=== PATIENT | female | born 1955 | race Caucasian/White ===

== ENCOUNTER → 2016-05-26 | Outpatient (CLI) | payer BC ==
[2016-05-26 19:08] LABS: Anisocytosis Slight; Aty Lym Flag Slight; CH 30.6; CHCM 32.4; HCT 35.7 % (34.0-46.0); HDW 3.36; HGB 11.4 gm/dL (11.4-16.0); Hypochromasia Slight; MCH 30.1 pg (25.0-35.0); MCV 94.3 fL (80.0-100.0); Mean Platelet Volume 8.6; RBC 3.78 m/uL (3.80-5.40); RDW 16.7 % (11.5-15.5); WBC 2.9 k/uL (3.8-10.6); WBC (Perox) 2.96
[2016-05-26 19:16] LABS: ALT 131 U/L (9-52); AST 121 U/L (14-36); Alkaline Phosphatase 93 U/L (38-126); Anion Gap 11 mmol/L; Blood Urea Nitrogen 18 mg/dL (7-17); Calcium 9.5 mg/dL (8.4-10.2); Carbon Dioxide 29 mmol/L (22-30); Chloride 101 mmol/L (98-107); Glucose 95 mg/dL (74-99); Magnesium 1.2 mg/dL (1.6-2.3); Non-African American GFR(MDRD) >60 (>60 ml/min/1.73 sqM); Potassium 4.4 mmol/L (3.5-5.1); Sodium 141 mmol/L (137-145); Total Bilirubin 0.6 mg/dL (0.2-1.3); Total Protein 7.8 g/dL (6.3-8.2)
[2016-05-26 19:19] LABS: Add Differential Manual Differential
[2016-05-26 19:22] LABS: Manual Review Performed; Nucleated Red Blood Cells 0 /100 WBC (0-0); Total Cells Counted 100; Toxic Granulation Present
--- NOTE | 2016-05-26 20:19 | CT ---
EXAMINATION TYPE: CT ChestAbdPelvis wo con DATE OF EXAM: 05/26/2016 6:55 PM COMPARISON: Abdomen and pelvis CT October 08, 2015 HISTORY: Right sided pain. Ovarian cancer follow-up also CT DLP: 1776.00 mGycm, Automated exposure control for dose reduction was used. FINDINGS: Within the limitations of a non-contrast study, the following observations are made. CHEST: The lungs are clear and well expanded. However, there are a few scattered 1-2 mm subtle pulmon nica opacities; these nonspecific opacities can be further characterized with a 3 month follow-up CT. There is no mediastinal or hilar or supraclavicular or axillary adenopathy. LAD coronary calcificatio ns incidentally noted. Mediastinal structures, skeletal structures and soft tissues otherwise unremar kable. ABDOMEN: The CT attenuation of the liver parenchyma is diffusely hypodense, consistent with diffuse fatty infiltration of the liver. The biliary tree and pancreas and spleen are unremarkable, as are th e kidneys and adrenals and bowel and vasculature. No abdominal adenopathy. Skeletal structures are ne gative. PELVIS: Oral contrast opacifies the colon and distal ileum. There is a predominantly fluid attenuatio n rounded 5 cm diameter mass within the right upper anterior pelvis, concerning for recurrence. Depen dently within the mass is a fluid debris level with this higher attenuation occupying approximately 1 5% of the volume of the mass. There is no free intraperitoneal fluid. There is no pelvic or inguinal adenopathy. Skeletal structures are negative. IMPRESSION: 5 CM RIGHT PELVIC MASS CONCERNING FOR NEOPLASTIC RECURRENCE.
== END | disposition home or self-care (01) ==
LOC: RADCTMAIN 14:25
PROVIDERS: ATTEND Obstetrics & Gynecology
DX: C56.9 Malignant neoplasm of unspecified ovary (principal); R19.00 Intra-abdominal and pelvic swelling, mass and lump, unspecified site
CPT/HCPCS: 36415; 71250; 74176; 80053; 83735; 85025

== ENCOUNTER 2016-08-04 02:05 | Emergency (ER) | payer BC ==
[2016-08-04 02:25] VITALS: RESP 16
[2016-08-04] MEDS ORDERED: SODIUM CHLORIDE 0.9% 1,000 ML IV STA (02:35)
[2016-08-04] MEDS ORDERED: HYDROmorphone 1 MG/ML 1 ML SYRINGE IVP STA (02:35)
[2016-08-04] MEDS ORDERED: SODIUM CHLORIDE 0.9% 500 ML IV STA (02:35)
[2016-08-04] MEDS ORDERED: METOCLOPRAMIDE 5 MG/ML 2 ML VIAL IVP STA (02:35)
[2016-08-04] MEDS ORDERED: DEXAMETHASONE 4 MG TAB PO STA (02:39)
[2016-08-04 04:18] LABS: CH 30.4; CHCM 33.2; HCT 36.9 % (34.0-46.0); HDW 3.05; HGB 12.3 gm/dL (11.4-16.0); MCH 30.5 pg (25.0-35.0); MCHC 33.3 g/dL (31.0-37.0); MCV 91.7 fL (80.0-100.0); Mean Platelet Volume 8.3; RBC 4.03 m/uL (3.80-5.40); WBC 5.2 k/uL (3.8-10.6)
[2016-08-04 04:40] LABS: ALT 41 U/L (9-52); AST 50 U/L (14-36); Alkaline Phosphatase 70 U/L (38-126); Anion Gap 10 mmol/L; Blood Urea Nitrogen 18 mg/dL (7-17); Calcium 9.1 mg/dL (8.4-10.2); Carbon Dioxide 26 mmol/L (22-30); Chloride 106 mmol/L (98-107); Glucose 134 mg/dL (74-99); Non-African American GFR(MDRD) >60 (>60 ml/min/1.73 sqM); Sodium 142 mmol/L (137-145); Total Bilirubin 0.4 mg/dL (0.2-1.3); Total Protein 6.9 g/dL (6.3-8.2)
[2016-08-04 05:06] LABS: Erythrocyte Sedimentation Rate 37 mm/hr (0-20)
--- NOTE | 2016-08-04 06:16 | ED ---
Headache HPI - General Chief Complaint: Headache Stated Complaint: Headache/Hypertension Time Seen by Provider: 08/04/16 02:23 Mode of arrival: ambulatory Limitations: no limitations - History of Present Illness Initial Comments: Planing about the headache for about 24, she feels that her blood pressure was Quite high though blood pressure was 134/79 131/79 she has been using a bunch of migraines at home she said she has 10/325 Vicodin she was using every 3 hours and she is also on chemotherapy for ovarian cancer. Last ovarian cancer- related chemo was in [place] and he was last Monday approximately 6-7 days ago she's on is warm to as well date she takes once a day and she has been taken pretty religiously - Related Data Home Medications Medication Instructions Recorded Confirmed ALPRAZolam [Xanax] 0.25 mg PO TID PRN 08/25/14 08/04/16 Diltiazem HCl [Diltiazem 24Hr ER] 120 mg PO Q24HR 08/25/14 08/04/16 Escitalopram [Lexapro] 20 mg PO DAILY 08/25/14 08/04/16 HYDROcodone/APAP 10-325MG [[place] 1 tab PO QID PRN 08/25/14 08/04/16 10-325] Rivaroxaban [Xarelto] 20 mg PO DAILY 10/14/14 08/04/16 Carvedilol 6.25 mg PO BID 10/05/15 08/04/16 Lisinopril 5 mg PO DAILY 10/05/15 08/04/16 Nitroglycerin Sl Tabs [Nitrostat] 0.4 mg PO Q5H PRN 10/05/15 08/04/16 Ondansetron HCl [Zofran] 8 mg PO BID PRN 10/05/15 08/04/16 Esomeprazole Magnesium [NexIUM 22.3 mg PO DAILY 08/04/16 08/04/16 24Hr] Zolpidem [Ambien] 10 mg PO HS PRN 08/04/16 08/04/16 Previous Rx's Medication Instructions Recorded Gabapentin [Neurontin] 300 mg PO TID #90 cap 08/28/14 Nitroglycerin Extended Release 2.5 mg PO BID capsule.er 08/28/14 [Nitro-Bid] Polyethylene Glycol 3350 [Miralax] 17 gm PO Q24H #255 gm 10/05/15 predniSONE 50 mg PO DAILY #5 tab 08/04/16 Allergies Allergy/AdvReac Type Severity Reaction Status Date / Time codeine Allergy Itching Verified 12/05/15 09:33 iodine Allergy Itching Verified 12/05/15 09:33 Penicillins Allergy Itching Verified 12/05/15 09:33 CHEMO DRUG Allergy Unknown Uncoded 12/05/15 09:33 Review of Systems ROS Statement: Those systems with pertinent positive or pertinent negative responses have been documented in the HPI. ROS Other: All systems not noted in ROS Statement are negative. Past Medical History Past Medical History: Cancer, Deep Vein Thrombosis (DVT), GERD/Reflux Additional Past Medical History / Comment(s): tmj, OVARIAN CANCER History of Any Multi-Drug Resistant Organisms: None Reported Past Surgical History: Adenoidectomy, Appendectomy, Cholecystectomy, Heart Catheterization With Stent, Hysterectomy, Tonsillectomy Additional Past Surgical History / Comment(s): ovarian cancer with bilateral oopherectomy 2005; 2 open exploratory abdominal surgery, mediport placed 2011 Past Anesthesia/Blood Transfusion Reactions: No Reported Reaction Date of Last Stent Placement:: 2011 Past Psychological History: Anxiety, Depression Smoking Status: Never smoker Past Alcohol Use History: None Reported Past Drug Use History: None Reported - Past Family History Mother Family Medical History: Diabetes Mellitus, Dialysis Brother(s) Family Medical History: Cancer Additional Family Medical History / Comment(s): lung cancer- since passed Sister(s) Family Medical History: CVA/TIA Father Family Medical History: Neurologic Disorder Additional Family Medical History / Comment(s): alzheimers General Exam - General Exam Comments Initial Comments: General: The patient is awake and alert, in no distress, and does not appear acutely ill. Skin: Skin is warm and dry and no rashes or lesions are noted. Eye: Pupils are equal, round and reactive to light, extra-ocular movements are intact; there is normal conjunctiva bilaterally. Ears, nose, mouth and throat: There are moist mucous membranes and no oral lesions. He is tender at the temporal areas bilaterally Neck: The neck is supple, there is no tenderness or JVD. Cardiovascular: There is a regular rate and rhythm. No murmur, rub or gallop is appreciated. Respiratory: To auscultation bilateral, no wheezing no rhonchi no distress respiratory reyna noticed Gastrointestinal: Soft, non-distended, non-tender abdomen without masses or organomegaly noted. There is no rebound or guarding present. Bowel sounds are unremarkable. Back: There is no tenderness to palpation in the midline. There is no obvious deformity. Musculoskeletal: Normal ROM, no tenderness, There is no pedal edema. There is no calf tenderness or swelling. No cords were appreciated. Neurological: CN II-XII intact, Cranial nerves III through XII are intact. There are no obvious motor or sensory deficits. Coordination appears grossly intact. Speech is normal. Psychiatric: Cooperative, appropriate mood & affect, normal judgment. Limitations: no limitations Course Vital Signs 08/04/16 08/04/16 08/04/16 02:09 02:25 04:00 Temperature 97.9 F Pulse Rate 53 L 69 54 L Respiratory 18 16 16 Rate Blood Pressure 131/106 142/67 138/69 O2 Sat by Pulse 94 L 98 98 Oximetry 08/04/16 08/04/16 08/04/16 04:30 06:19 07:54 Temperature 98.1 F Pulse Rate 65 60 69 Respiratory 16 16 16 Rate Blood Pressure 111/59 119/60 137/65 O2 Sat by Pulse 95 95 94 L Oximetry She was reassessed 3 times during her stay in the ER, her head CT is normal CBC , compressive metabolic panel is within normal range, sed rate is bit elevated I plan to discuss the Dr. Craft the C4 she is a candidate for temporal artery biopsy in the meantime she will be given now prednisone/Decadron on his recommendation - Reevaluation(s) Reevaluation #1: 08/04/16 08:[address] Craft this morning Dr. Craft agreed to see the patient he advised patient to call his office and they were CN next 1-2 days in the meantime she got Decadron 8 mg by mouth in in the ER today she be given prescription for 50 mg of prednisone daily for next 5 days and as far as biopsies concerned that B that decision will be done by Dr. Craft whether she needs a regular my head CT is normal Medical Decision Making - Lab Data Result diagrams: 08/04/16 03:54 08/04/16 03:54 Lab Results 08/04/16 08/04/16 Range/Units 03:54 03:54 WBC 5.2 (3.8-10.6) k/uL RBC 4.03 (3.80-5.40) m/uL Hgb 12.3 (11.4-16.0) gm/dL Hct 36.9 (34.0-46.0) % MCV 91.7 (80.0-100.0) fL MCH 30.5 (25.0-35.0) pg MCHC 33.3 (31.0-37.0) g/dL RDW 15.0 (11.5-15.5) % Plt Count 143 L (150-450) k/uL ESR 37 H (0-20) mm/hr Sodium 142 (137-145) mmol/L Potassium 4.0 (3.5-5.1) mmol/L Chloride 106 (98-107) mmol/L Carbon Dioxide 26 (22-30) mmol/L Anion Gap 10 mmol/L BUN 18 H (7-17) mg/dL Creatinine 0.90 (0.52-1.04) mg/dL Est GFR (MDRD) Af Amer >60 (>60 ml/min/1.73 sqM) Est GFR (MDRD) Non-Af >60 (>60 ml/min/1.73 sqM) Glucose 134 H (74-99) mg/dL Calcium 9.1 (8.4-10.2) mg/dL Total Bilirubin 0.4 (0.2-1.3) mg/dL AST 50 H (14-36) U/L ALT 41 (9-52) U/L Alkaline Phosphatase 70 (38-126) U/L Total Protein 6.9 (6.3-8.2) g/dL Albumin 3.7 (3.5-5.0) g/dL Disposition Clinical Impression: Headache, Elevated erythrocyte sedimentation rate Disposition: HOME SELF-CARE Condition: Good Instructions: Acute Headache (ED) Prescriptions: predniSONE 50 mg PO DAILY #5 tab Referrals: Kevin Metzger MD [Primary Care Provider] - 1-2 days Howard Craft MD [STAFF PHYSICIAN] - 1-2 days
--- NOTE | 2016-08-04 06:48 | CT ---
EXAM: CT Head Without Intravenous Contrast. CLINICAL HISTORY: Reason: Pain TECHNIQUE: Axial computed tomography images of the head/brain without intravenous contrast. CTDI is 60.3 mGy and DLP is 1018 mGy-cm This CT exam was performed using one or more of the following dose reduction techniques: automated exposure control, adjustment of the mA and/or kV according to patient size, and/or use of iterative reconstruction technique. Coronal and sagittal reformatted images were created and reviewed. COMPARISON: No relevant prior studies available. FINDINGS: Brain: Unremarkable. No hemorrhage. No significant white matter disease. No edema. Ventricles: Unremarkable. No ventriculomegaly. Bones/joints: Unremarkable. No acute fracture. Soft tissues: Unremarkable. Sinuses: Unremarkable as visualized. No acute sinusitis. Mastoid air cells: Unremarkable as visualized. No mastoid effusion. IMPRESSION: Normal head/brain CT.
[2016-08-04 07:55] VITALS: BP 137/65; PULSE 69; TEMP 98.1
== END 2016-08-04 08:35 | disposition home or self-care (01) ==
LOC: EC 02:05
DX: R51 Headache (principal); R70.0 Elevated erythrocyte sedimentation rate; C56.9 Malignant neoplasm of unspecified ovary; K21.9 Gastro-esophageal reflux disease without esophagitis; F32.9 Major depressive disorder, single episode, unspecified; Z88.0 Allergy status to penicillin; Z88.5 Allergy status to narcotic agent; Z88.8 Allergy status to other drugs, medicaments and biological substances; Z79.01 Long term (current) use of anticoagulants; Z79.899 Other long term (current) drug therapy; Z95.5 Presence of coronary angioplasty implant and graft; Z86.718 Personal history of other venous thrombosis and embolism; Z79.52 Long term (current) use of systemic steroids
CPT/HCPCS: 99284; 96374; 96375; 96361 ×3; 36415; 80053; 85652; 85027; 70450; J8540; J2765; J1170

== ENCOUNTER 2016-09-06 13:11 | Emergency (ER) | payer BC ==
[2016-09-06 13:16] VITALS: BP 145/87; PULSE 76; RESP 18; TEMP 98
[2016-09-06] MEDS ORDERED: FAMOTIDINE 20 MG TAB PO STA (13:31)
[2016-09-06] MEDS ORDERED: methylPREDNISolone SOD SUCCI 125 MG/2 ML VIAL IM STA (13:31)
[2016-09-06] MEDS ORDERED: diphenhydrAMINE 50 MG/ML 1 ML VIAL IM STA (13:31)
[2016-09-06] MEDS ORDERED: MAG HYDROX/AL HYDROX/SIMETH 30 ML, HYOSCYAMINE ELIXIR 10 ML, CIMETIDINE HCL 300 MG PO STA ×3 (13:32)
--- NOTE | 2016-09-06 13:42 | ED ---
General Adult HPI - General Chief complaint: Allergic Reaction Stated complaint: Med Reaction Time Seen by Provider: 09/06/16 13:18 Source: patient, RN notes reviewed Mode of arrival: ambulatory Limitations: no limitations - History of Present Illness Initial comments: 61-year-old female presents to the emergency department with a chief complaint burning-like sensation. Patient states that about one week ago she had a repair to her right tooth. Patient states that time she was given clindamycin. Patient states that she took one of the clindamycin and she immediately had burning all the way through her throat down into her abdomen. Patient will take anymore clindamycin. Patient states then today she took another one and she had similar like symptoms. Patient states that she was concerned because of this burning type sensation so she thought that she should be seen. Patient states there is no difficulty breathing has no chest pain. Patient states it instantaneously happened after she saw medication. Patient states that she hasn 't had any other symptoms with this. Patient states she's never had clindamycin before but the last 2 times that she is taking this medication this is happened. Patient states she was concerned due to the symptoms so she thought that she should be evaluated. Patient states she took Benadryl at home with no improvement.Patient denies any recent fever, chills, shortness of breath , chest pain, back pain, abdominal pain, nausea vomiting, numbness or tingling, dysuria or hematuria, constipation or diarrhea, headaches or visual changes, or any other current symptoms. - Related Data Home Medications Medication Instructions Recorded Confirmed ALPRAZolam [Xanax] 0.25 mg PO TID PRN 08/25/14 08/04/16 Diltiazem HCl [Diltiazem 24Hr ER] 120 mg PO Q24HR 08/25/14 08/04/16 Escitalopram [Lexapro] 20 mg PO DAILY 08/25/14 08/04/16 HYDROcodone/APAP 10-325MG [[place] 1 tab PO QID PRN 08/25/14 08/04/16 10-325] Rivaroxaban [Xarelto] 20 mg PO DAILY 10/14/14 08/04/16 Carvedilol 6.25 mg PO BID 10/05/15 08/04/16 Lisinopril 5 mg PO DAILY 10/05/15 08/04/16 Nitroglycerin Sl Tabs [Nitrostat] 0.4 mg PO Q5H PRN 10/05/15 08/04/16 Ondansetron HCl [Zofran] 8 mg PO BID PRN 10/05/15 08/04/16 Esomeprazole Magnesium [NexIUM 22.3 mg PO DAILY 08/04/16 08/04/16 24Hr] Zolpidem [Ambien] 10 mg PO HS PRN 08/04/16 08/04/16 Previous Rx's Medication Instructions Recorded Gabapentin [Neurontin] 300 mg PO TID #90 cap 08/28/14 Nitroglycerin Extended Release 2.5 mg PO BID capsule.er 08/28/14 [Nitro-Bid] Polyethylene Glycol 3350 [Miralax] 17 gm PO Q24H #255 gm 10/05/15 predniSONE 50 mg PO DAILY #5 tab 08/04/16 Allergies Allergy/AdvReac Type Severity Reaction Status Date / Time codeine Allergy Itching Verified 09/06/16 13:16 iodine Allergy Itching Verified 09/06/16 13:16 Penicillins Allergy Itching Verified 09/06/16 13:16 CHEMO DRUG Allergy Unknown Uncoded 09/06/16 13:16 Review of Systems ROS Statement: Those systems with pertinent positive or pertinent negative responses have been documented in the HPI. ROS Other: All systems not noted in ROS Statement are negative. Past Medical History Past Medical History: Cancer, Deep Vein Thrombosis (DVT), GERD/Reflux Additional Past Medical History / Comment(s): tmj, OVARIAN CANCER History of Any Multi-Drug Resistant Organisms: None Reported Past Surgical History: Adenoidectomy, Appendectomy, Cholecystectomy, Heart Catheterization With Stent, Hysterectomy, Tonsillectomy Additional Past Surgical History / Comment(s): ovarian cancer with bilateral oopherectomy 2005; 2 open exploratory abdominal surgery, mediport placed 2011 Past Anesthesia/Blood Transfusion Reactions: No Reported Reaction Date of Last Stent Placement:: 2011 Past Psychological History: Anxiety, Depression Smoking Status: Never smoker Past Alcohol Use History: None Reported Past Drug Use History: None Reported - Past Family History Mother Family Medical History: Diabetes Mellitus, Dialysis Brother(s) Family Medical History: Cancer Additional Family Medical History / Comment(s): lung cancer- since passed Sister(s) Family Medical History: CVA/TIA Father Family Medical History: Neurologic Disorder Additional Family Medical History / Comment(s): alzheimers General Exam Limitations: no limitations General appearance: alert, in no apparent distress Eye exam: Present: normal appearance, PERRL, EOMI. Absent: scleral icterus, conjunctival injection, periorbital swelling ENT exam: Present: normal exam, mucous membranes moist Neck exam: Present: normal inspection. Absent: tenderness, meningismus, lymphadenopathy Respiratory exam: Present: normal lung sounds bilaterally. Absent: respiratory distress, wheezes, rales, rhonchi, stridor Cardiovascular Exam: Present: regular rate, normal rhythm, normal heart sounds. Absent: systolic murmur, diastolic murmur, rubs, gallop, clicks Neurological exam: Present: alert, oriented X3, CN II-XII intact. Absent: motor sensory deficit Psychiatric exam: Present: normal affect, normal mood Skin exam: Present: warm, dry, intact, normal color. Absent: rash Course Vital Signs 09/06/16 13:13 Temperature 98.0 F Pulse Rate 76 Respiratory 18 Rate Blood Pressure 145/87 O2 Sat by Pulse 99 Oximetry - Reevaluation(s) Reevaluation #1: 09/06/16 14:38 Patient states that she is feeling better but her at this time. Medical Decision Making - Medical Decision Making 61-year-old female presents with what appears to be an adverse drug reaction to clindamycin. GI cocktail didn't completely resolve the patient's symptoms. This time we discussed most that the patient is having gastritis like symptoms along with esophageal-type symptoms from the clindamycin. At this time we did discuss that did not take the clindamycin at this time. We did discuss follow- up with her doctor and return parameters. We discussed the adverse drug reaction. Patient states that she understood and all of her questions have been answered. She will be discharged home. Disposition Clinical Impression: Adverse reaction to drug Disposition: HOME SELF-CARE Condition: Stable Instructions: Clindamycin (By mouth) Additional Instructions: Please use medication as discussed. Please follow up with family doctor if symptoms have not improved over the next two days. Please return to the emergency room if your symptoms increase or worsen or for any other concerns. Referrals: Kevin Metzger MD [Primary Care Provider] - 1-2 days Time of Disposition: 14:38
== END 2016-09-06 14:50 | disposition home or self-care (01) ==
LOC: EC 13:11
DX: R20.8 Other disturbances of skin sensation (principal); T36.8X5A Adverse effect of other systemic antibiotics, initial encounter; K21.9 Gastro-esophageal reflux disease without esophagitis; F32.9 Major depressive disorder, single episode, unspecified; F41.9 Anxiety disorder, unspecified; Z79.01 Long term (current) use of anticoagulants; Z79.899 Other long term (current) drug therapy; Z88.5 Allergy status to narcotic agent; Z88.0 Allergy status to penicillin; Z88.8 Allergy status to other drugs, medicaments and biological substances; Z86.718 Personal history of other venous thrombosis and embolism
CPT/HCPCS: 99282; 96372; J1200

== ENCOUNTER → 2017-02-09 | Outpatient (CLI) | payer BC ==
--- NOTE | 2017-02-09 15:26 | NM ---
EXAMINATION TYPE: NM bone scan whole body DATE OF EXAM: 02/09/2017 COMPARISON: 12/08/2014 HISTORY: 61-year-old female with bilateral shoulder and back pain. Technique: Delayed whole-body scanning was performed following the injection of 21.5 mCi Tc 99m MDP. Images acquired 3 hours post injection. FINDINGS: There is some mild degenerative uptake noted at both shoulders. No suspicious distribution of tracer throughout the osseous structures to suggest metastatic disease. IMPRESSION: No scintigraphic evidence for osseous metastatic disease. There is mild degenerative tracer uptake at the shoulders.
== END | disposition home or self-care (01) ==
LOC: RADNMMAIN 10:19
PROVIDERS: ATTEND Family Medicine
DX: M54.9 Dorsalgia, unspecified (principal)
CPT/HCPCS: 78306; A9503

== ENCOUNTER 2017-02-15 23:12 | Emergency (ER) | payer BC ==
--- NOTE | 2017-02-16 01:07 | US ---
EXAMINATION TYPE: US venous doppler duplex LE RT DATE OF EXAM: 02/16/2017 12:29 AM COMPARISON: NONE CLINICAL HISTORY: Pain. rt calf pain SIDE PERFORMED: Right TECHNIQUE: The lower extremity deep venous system is examined utilizing real time linear array sonog freddie with graded compression, doppler sonography and color-flow sonography. VESSELS IMAGED: External Iliac Vein (EIV) Common Femoral Vein Deep Femoral Vein Greater Saphenous Vein * Femoral Vein Popliteal Vein Small Saphenous Vein * Proximal Calf Veins (* superficial vessels) Right Leg: Negative for DVT No evidence of DVT right leg IMPRESSION: Normal exam. No evidence of deep venous thrombosis in the right leg.
--- NOTE | 2017-02-16 01:17 | ED ---
Extremity Problem HPI - General Chief complaint: Extremity Problem,Nontraumatic Stated complaint: Leg Pain/Pt on chemo Time Seen by Provider: 02/16/17 00:35 Source: patient, RN notes reviewed, old records reviewed Mode of arrival: ambulatory Limitations: no limitations - History of Present Illness Initial comments: this is a 61-year-old female to emergency Department chief complaint of right leg cramping and pain. Patient reports that she has history of cancer. She states that she is currently here seeing chemo pills. She is concerned she may have blood clot in her right lower leg. Denies any significant swelling. She reports that she does have chronic muscle cramps and seems to be somewhat different. She does report she has history of neuropathy and takes gabapentin. She's been taking her gabapentin and Vicodin however has not been helping.patient denies any recent falls or trauma to the leg. Patient denies any recent fever, chills, shortness of breath, chest pain, back pain, abdominal pain, nausea vomiting, numbness or tingling, dysuria or hematuria, constipation or diarrhea, headaches or visual changes, or any other current symptoms - Related Data Home Medications Medication Instructions Recorded Confirmed ALPRAZolam [Xanax] 0.25 mg PO TID PRN 08/25/14 08/04/16 Diltiazem HCl [Diltiazem 24Hr ER] 120 mg PO Q24HR 08/25/14 08/04/16 Escitalopram [Lexapro] 20 mg PO DAILY 08/25/14 08/04/16 HYDROcodone/APAP 10-325MG [[place] 1 tab PO QID PRN 08/25/14 08/04/16 10-325] Rivaroxaban [Xarelto] 20 mg PO DAILY 10/14/14 08/04/16 Carvedilol 6.25 mg PO BID 10/05/15 08/04/16 Lisinopril 5 mg PO DAILY 10/05/15 08/04/16 Nitroglycerin Sl Tabs [Nitrostat] 0.4 mg PO Q5H PRN 10/05/15 08/04/16 Ondansetron HCl [Zofran] 8 mg PO BID PRN 10/05/15 08/04/16 Esomeprazole Magnesium [NexIUM 22.3 mg PO DAILY 08/04/16 08/04/16 24Hr] Zolpidem [Ambien] 10 mg PO HS PRN 08/04/16 08/04/16 Previous Rx's Medication Instructions Recorded Gabapentin [Neurontin] 300 mg PO TID #90 cap 08/28/14 Nitroglycerin Extended Release 2.5 mg PO BID capsule.er 08/28/14 [Nitro-Bid] Polyethylene Glycol 3350 [Miralax] 17 gm PO Q24H #255 gm 10/05/15 predniSONE 50 mg PO DAILY #5 tab 08/04/16 Allergies Allergy/AdvReac Type Severity Reaction Status Date / Time codeine Allergy Itching Verified 02/15/17 23:24 iodine Allergy Itching Verified 02/15/17 23:24 Penicillins Allergy Itching Verified 02/15/17 23:24 CHEMO DRUG Allergy Unknown Uncoded 02/15/17 23:24 Review of Systems ROS Statement: Those systems with pertinent positive or pertinent negative responses have been documented in the HPI. ROS Other: All systems not noted in ROS Statement are negative. Past Medical History Past Medical History: Cancer, Deep Vein Thrombosis (DVT), GERD/Reflux Additional Past Medical History / Comment(s): tmj, OVARIAN CANCER History of Any Multi-Drug Resistant Organisms: None Reported Past Surgical History: Adenoidectomy, Appendectomy, Cholecystectomy, Heart Catheterization With Stent, Hysterectomy, Tonsillectomy Additional Past Surgical History / Comment(s): ovarian cancer with bilateral oopherectomy 2005; 2 open exploratory abdominal surgery, mediport placed 2011 Past Anesthesia/Blood Transfusion Reactions: No Reported Reaction Date of Last Stent Placement:: 2011 Past Psychological History: Anxiety, Depression Smoking Status: Never smoker Past Alcohol Use History: None Reported Past Drug Use History: None Reported - Past Family History Mother Family Medical History: Diabetes Mellitus, Dialysis Brother(s) Family Medical History: Cancer Additional Family Medical History / Comment(s): lung cancer- since passed Sister(s) Family Medical History: CVA/TIA Father Family Medical History: Neurologic Disorder Additional Family Medical History / Comment(s): alzheimers General Exam - General Exam Comments Initial Comments: well-appearing 61-year-old female. No acute distress. Limitations: no limitations General appearance: alert, in no apparent distress Head exam: Present: atraumatic, normocephalic, normal inspection Eye exam: Present: normal appearance, PERRL, EOMI. Absent: scleral icterus, conjunctival injection, periorbital swelling ENT exam: Present: normal exam, mucous membranes moist Neck exam: Present: normal inspection. Absent: tenderness, meningismus, lymphadenopathy Respiratory exam: Present: normal lung sounds bilaterally. Absent: respiratory distress, wheezes, rales, rhonchi, stridor Cardiovascular Exam: Present: regular rate, normal rhythm, normal heart sounds. Absent: systolic murmur, diastolic murmur, rubs, gallop, clicks GI/Abdominal exam: Present: soft, normal bowel sounds. Absent: distended, tenderness, guarding, rebound, rigid Extremities exam: Present: normal inspection, full ROM, normal capillary refill , other (patient has full range of motion and no swelling or redness over the right lower leg. Patient reports some minor Cramping.). Absent: tenderness, pedal edema, joint swelling, calf tenderness Back exam: Present: normal inspection Neurological exam: Present: alert, oriented X3, CN II-XII intact Psychiatric exam: Present: normal affect, normal mood Course Vital Signs 02/15/17 02/16/17 23:21 01:51 Temperature 99.0 F 97.8 F Pulse Rate 77 53 L Respiratory 18 16 Rate Blood Pressure 126/71 148/74 O2 Sat by Pulse 95 98 Oximetry Medical Decision Making - Medical Decision Making is a 61-year-old female presenting to emergency room chief complaint of right lower leg pain. She does have a history of cancer is currently undergoing oral pill chemo treatments. Patient right leg has no redness. No significant swelling. She does complain of some mild cramping. At this time patient's ultrasound is negative for any DVT. Patient's main concern. Discussed without any trauma or any other injuriessignificant necessary for x-rays. Patient agrees to this. Discussed that she should follow-up with her primary care provider and may need to increase her gabapentin for neuropathy. Discussed remaining hydrated. Patient agrees to treatment plan will comply. Return parameters were discussed. - Radiology Data Radiology results: report reviewed Rectal exam for DVT. Normal exam. No evidence of deep venous thrombosis in the right leg. Disposition Clinical Impression: Cramps of right lower extremity Disposition: HOME SELF-CARE Condition: Good Instructions: Leg Cramps (ED) Additional Instructions: patient has a follow-up with her primary care provider. Take Motrin and Tylenol are prescribed pain medication for pain. Increase fluids. Return to emergency department if any alarming signs or symptoms occur. Also recommended resting ice and elevate the extremity. Referrals: Kevin Metzger MD [Primary Care Provider] - 1-2 days Time of Disposition: 01:17
[2017-02-16 01:52] VITALS: BP 148/74; PULSE 53; RESP 16; TEMP 97.8
== END 2017-02-16 01:51 | disposition home or self-care (01) ==
LOC: EC 23:12
DX: M79.604 Pain in right leg (principal); K21.9 Gastro-esophageal reflux disease without esophagitis; F32.9 Major depressive disorder, single episode, unspecified; F41.9 Anxiety disorder, unspecified; Z85.43 Personal history of malignant neoplasm of ovary; Z86.718 Personal history of other venous thrombosis and embolism; Z79.01 Long term (current) use of anticoagulants; Z79.899 Other long term (current) drug therapy; Z88.0 Allergy status to penicillin; Z88.5 Allergy status to narcotic agent; Z88.8 Allergy status to other drugs, medicaments and biological substances
CPT/HCPCS: 99284

== ENCOUNTER → 2017-09-06 | Outpatient (CLI) | payer BC ==
[2017-09-06 16:38] LABS: Collection Time,Urine 24 hrs; Total Volume 24 Hour,Urine 775 mls (800-1800)
[2017-09-06 17:55] LABS: Total Protein 24 Hour,Urine 4387 mg/24hr (42.0-225.0)
== END ==
LOC: LABWHC1 15:16
PROVIDERS: ATTEND Obstetrics & Gynecology Gynecologic Oncology
DX: R80.9 Proteinuria, unspecified (principal)
CPT/HCPCS: 81050; 84156

== ENCOUNTER 2017-10-05 10:24 | Inpatient (IN) | payer BC ==
[2017-10-05] MEDS ORDERED: ONDANSETRON 4 MG/2 ML VIAL IVP STA (10:36)
[2017-10-05] MEDS ORDERED: SODIUM CHLORIDE 0.9% 2,000 ML IV STA (10:36)
--- NOTE | 2017-10-05 10:39 | ED ---
General Adult HPI - General Chief complaint: Abdominal Pain Stated complaint: Nause/Vomiting Time Seen by Provider: 10/05/17 10:30 Source: patient, EMS, RN notes reviewed Mode of arrival: EMS Limitations: no limitations - History of Present Illness Initial comments: This is a 62-year-old female who presents to the emergency department with past medical history of ovarian cancer. Patient states she's been having intermittent abdominal pain and constipation over the last few weeks she is on narcotics. Patient states as night however she started having nausea and started vomiting and has not stopped. Patient states 2 weeks ago she was seen in emergency department in [place] and a CAT scan was done there and she was told nothing was abnormal. Patient states currently her abdomen is diffusely crampy but there is no specific area of tenderness. Patient denies any fever chills. Patient denies any chest pain difficulty breathing shortness of breath. Patient denies headache patient denies any numbness or weakness. Patient denies any back pain. Patient denies dysuria hematuria urinary frequency. - Related Data Home Medications Medication Instructions Recorded Confirmed ALPRAZolam [Xanax] 0.25 mg PO TID PRN 08/25/14 10/05/17 Diltiazem HCl [Diltiazem 24Hr ER] 120 mg PO DAILY 08/25/14 10/05/17 Escitalopram [Lexapro] 20 mg PO DAILY 08/25/14 10/05/17 HYDROcodone/APAP 10-325MG [[place] 1 tab PO QID PRN 08/25/14 10/05/17 10-325] Rivaroxaban [Xarelto] 20 mg PO DAILY 10/14/14 10/05/17 Carvedilol 6.25 mg PO BID 10/05/15 10/05/17 Lisinopril 5 mg PO DAILY 10/05/15 10/05/17 Nitroglycerin Sl Tabs [Nitrostat] 0.4 mg PO Q5M PRN 10/05/15 10/05/17 Ondansetron HCl [Zofran] 8 mg PO BID PRN 10/05/15 10/05/17 Zolpidem [Ambien] 10 mg PO HS PRN 08/04/16 10/05/17 Polyethylene Glycol 3350 [Miralax] 17 gm PO DAILY 10/05/17 10/05/17 diphenhydrAMINE HCL [Benadryl] 25 mg PO HS 10/05/17 10/05/17 Previous Rx's Medication Instructions Recorded Gabapentin [Neurontin] 300 mg PO TID #90 cap 08/28/14 Nitroglycerin Extended Release 2.5 mg PO BID capsule.er 08/28/14 [Nitro-Bid] Allergies Allergy/AdvReac Type Severity Reaction Status Date / Time codeine Allergy Itching Verified 10/05/17 10:59 iodine Allergy Itching Verified 10/05/17 10:59 Penicillins Allergy Itching Verified 10/05/17 10:59 CHEMO DRUG Allergy Unknown Uncoded 10/05/17 10:31 Review of Systems ROS Statement: Those systems with pertinent positive or pertinent negative responses have been documented in the HPI. ROS Other: All systems not noted in ROS Statement are negative. Past Medical History Past Medical History: Cancer, Deep Vein Thrombosis (DVT), GERD/Reflux Additional Past Medical History / Comment(s): tmj, OVARIAN CANCER History of Any Multi-Drug Resistant Organisms: None Reported Past Surgical History: Adenoidectomy, Appendectomy, Cholecystectomy, Heart Catheterization With Stent, Hysterectomy, Tonsillectomy Additional Past Surgical History / Comment(s): ovarian cancer with bilateral oopherectomy 2005; 2 open exploratory abdominal surgery, mediport placed 2011 Past Anesthesia/Blood Transfusion Reactions: No Reported Reaction Date of Last Stent Placement:: 2011 Past Psychological History: Anxiety, Depression Smoking Status: Never smoker Past Alcohol Use History: None Reported Past Drug Use History: None Reported - Past Family History Mother Family Medical History: Diabetes Mellitus, Dialysis Brother(s) Family Medical History: Cancer Additional Family Medical History / Comment(s): lung cancer- since passed Sister(s) Family Medical History: CVA/TIA Father Family Medical History: Neurologic Disorder Additional Family Medical History / Comment(s): alzheimers General Exam - General Exam Comments Initial Comments: GENERAL: Patient is well-developed and well-nourished. Patient is nontoxic and well- hydrated and is in mild distress. ENT: Neck is soft and supple. No significant lymphadenopathy is noted. Oropharynx is clear. Moist mucous membranes. Neck has full range of motion without eliciting any pain. EYES: The sclera were anicteric and conjunctiva were pink and moist. Extraocular movements were intact and pupils were equal round and reactive to light. Eyelids were unremarkable. PULMONARY: Unlabored respirations. Good breath sounds bilaterally. No audible rales rhonchi or wheezing was noted. CARDIOVASCULAR: There is a regular rate and rhythm without any murmurs gallops or rubs. ABDOMEN: Mild diffuse tenderness there is no rebound or guarding. No palpable organomegaly was noted. There is no palpable pulsatile mass. SKIN: Skin is clear with no lesions or rashes and otherwise unremarkable. NEUROLOGIC: Patient is alert and oriented x3. Cranial nerves II through XII are grossly intact. Motor and sensory are also intact. Normal speech, volume and content. Symmetrical smile. MUSCULOSKELETAL: Normal extremities with adequate strength and full range of motion. LYMPHATICS: No significant lymphadenopathy is noted PSYCHIATRIC: Normal psychiatric evaluation. Limitations: no limitations Course Vital Signs 10/05/17 10/05/17 10/05/17 10:31 11:41 12:16 Pulse Rate 100 98 84 Respiratory 20 20 16 Rate Blood Pressure 234/112 186/127 194/91 O2 Sat by Pulse 95 95 Oximetry 10/05/17 10/05/17 10/05/17 14:07 15:00 16:09 Pulse Rate 120 H 118 H 109 H Respiratory 18 16 18 Rate Blood Pressure 176/81 209/95 179/83 O2 Sat by Pulse 96 94 L 95 Oximetry Medical Decision Making - Medical Decision Making EKG shows sinus tachycardia at 127 bpm SC interval is 132 QRS is 78 QT interval 314 QTC is 456. Patient's EKG shows no ST segment elevation. - Lab Data Result diagrams: 10/05/17 10:40 10/05/17 10:40 Lab Results 10/05/17 10/05/17 10/05/17 Range/Units 10:32 10:40 10:40 WBC 10.7 H (3.8-10.6) k/uL RBC 4.36 (3.80-5.40) m/uL Hgb 11.7 (11.4-16.0) gm/dL Hct 36.4 (34.0-46.0) % MCV 83.6 (80.0-100.0) fL MCH 26.8 (25.0-35.0) pg MCHC 32.1 (31.0-37.0) g/dL RDW 15.5 (11.5-15.5) % Plt Count 179 (150-450) k/uL Neutrophils % 87 % Lymphocytes % 8 % Monocytes % 4 % Eosinophils % 0 % Basophils % 0 % Neutrophils # 9.3 H (1.3-7.7) k/uL Lymphocytes # 0.8 L (1.0-4.8) k/uL Monocytes # 0.4 (0-1.0) k/uL Eosinophils # 0.0 (0-0.7) k/uL Basophils # 0.0 (0-0.2) k/uL Hypochromasia Slight Sodium 144 (137-145) mmol/L Potassium 4.3 (3.5-5.1) mmol/L Chloride 105 (98-107) mmol/L Carbon Dioxide 24 (22-30) mmol/L Anion Gap 15 mmol/L BUN 23 H (7-17) mg/dL Creatinine 1.08 H (0.52-1.04) mg/dL Est GFR (CKD-EPI)AfAm 63 (>60 ml/min/1.73 sqM) Est GFR (CKD-EPI)NonAf 55 (>60 ml/min/1.73 sqM) Glucose 193 H (74-99) mg/dL Plasma Lactic Acid Chad (0.7-2.0) mmol/L Calcium 9.6 (8.4-10.2) mg/dL Total Bilirubin 0.5 (0.2-1.3) mg/dL AST 43 H (14-36) U/L ALT 28 (9-52) U/L Alkaline Phosphatase 57 (38-126) U/L Troponin I (0.000-0.034) ng/mL Total Protein 6.9 (6.3-8.2) g/dL Albumin 3.9 (3.5-5.0) g/dL Amylase 58 (30-110) U/L Lipase 166 (23-300) U/L Urine Color Yellow Urine Appearance Cloudy H (Clear) Urine pH 6.0 (5.0-8.0) Ur Specific Hallock 1.017 (1.001-1.035) Urine Protein 4+ H (Negative) Urine Glucose (UA) Trace H (Negative) Urine Ketones Negative (Negative) Urine Blood Moderate H (Negative) Urine Nitrite Negative (Negative) Urine Bilirubin Negative (Negative) Urine Urobilinogen <2.0 (<2.0) mg/dL Ur Leukocyte Esterase Negative (Negative) Urine RBC 6 H (0-5) /hpf Urine WBC 12 H (0-5) /hpf Ur Squamous Epith Cells 3 (0-4) /hpf Amorphous Sediment Rare H (None) /hpf Urine Bacteria Rare H (None) /hpf Hyaline Casts 62 H (0-2) /lpf Granular Casts 11 (0) /lpf Urine Mucus Rare H (None) /hpf 10/05/17 10/05/17 Range/Units 10:40 10:40 WBC (3.8-10.6) k/uL RBC (3.80-5.40) m/uL Hgb (11.4-16.0) gm/dL Hct (34.0-46.0) % MCV (80.0-100.0) fL MCH (25.0-35.0) pg MCHC (31.0-37.0) g/dL RDW (11.5-15.5) % Plt Count (150-450) k/uL Neutrophils % % Lymphocytes % % Monocytes % % Eosinophils % % Basophils % % Neutrophils # (1.3-7.7) k/uL Lymphocytes # (1.0-4.8) k/uL Monocytes # (0-1.0) k/uL Eosinophils # (0-0.7) k/uL Basophils # (0-0.2) k/uL Hypochromasia Sodium (137-145) mmol/L Potassium (3.5-5.1) mmol/L Chloride (98-107) mmol/L Carbon Dioxide (22-30) mmol/L Anion Gap mmol/L BUN (7-17) mg/dL Creatinine (0.52-1.04) mg/dL Est GFR (CKD-EPI)AfAm (>60 ml/min/1.73 sqM) Est GFR (CKD-EPI)NonAf (>60 ml/min/1.73 sqM) Glucose (74-99) mg/dL Plasma Lactic Acid Chad 2.0 (0.7-2.0) mmol/L Calcium (8.4-10.2) mg/dL Total Bilirubin (0.2-1.3) mg/dL AST (14-36) U/L ALT (9-52) U/L Alkaline Phosphatase (38-126) U/L Troponin I <0.012 (0.000-0.034) ng/mL Total Protein (6.3-8.2) g/dL Albumin (3.5-5.0) g/dL Amylase (30-110) U/L Lipase (23-300) U/L Urine Color Urine Appearance (Clear) Urine pH (5.0-8.0) Ur Specific Hallock (1.001-1.035) Urine Protein (Negative) Urine Glucose (UA) (Negative) Urine Ketones (Negative) Urine Blood (Negative) Urine Nitrite (Negative) Urine Bilirubin (Negative) Urine Urobilinogen (<2.0) mg/dL Ur Leukocyte Esterase (Negative) Urine RBC (0-5) /hpf Urine WBC (0-5) /hpf Ur Squamous Epith Cells (0-4) /hpf Amorphous Sediment (None) /hpf Urine Bacteria (None) /hpf Hyaline Casts (0-2) /lpf Granular Casts (0) /lpf Urine Mucus (None) /hpf Disposition Clinical Impression: Abdominal pain, Acute vomiting, Hypertensive urgency, Hydronephrosis, bilateral , Abdominal mass Disposition: ADMITTED IP TO THIS [facility] Time of Disposition: 15:56
[2017-10-05 10:57] LABS: Basophils % (A) 0 %; Eosinophils % (A) 0 %; HCT 36.4 % (34.0-46.0); HGB 11.7 gm/dL (11.4-16.0); Hypochromasia Slight; Lymphocytes # (A) 0.8 k/uL (1.0-4.8); Lymphocytes % (A) 8 %; MCH 26.8 pg (25.0-35.0); MCHC 32.1 g/dL (31.0-37.0); MCV 83.6 fL (80.0-100.0); Mean Platelet Volume 8.3; Monocytes # (A) 0.4 k/uL (0-1.0); Monocytes % (A) 4 %; Neutrophils # (A) 9.3 k/uL (1.3-7.7); Neutrophils % (A) 87 %; Platelet Count 179 k/uL (150-450); RBC 4.36 m/uL (3.80-5.40); RDW 15.5 % (11.5-15.5); WBC 10.7 k/uL (3.8-10.6)
[2017-10-05 11:05] LABS: Amorphous Sediment,Urine Rare /hpf; Appearance,Urine Cloudy (Clear); Bacteria,Urine Rare /hpf; Bilirubin,Urine Negative (Negative); Blood,Urine Moderate (Negative); Color,Urine Yellow; Glucose,Urine (UA) Trace (Negative); Granular Casts,Urine 11 /lpf (0); Hyaline Casts,Urine 62 /lpf (0-2); Ketones,Urine Negative (Negative); Leukocyte Esterase,Urine Negative (Negative); Mucus,Urine Rare /hpf; Nitrite,Urine Negative (Negative); Protein,Urine 4+ (Negative); RBC,Urine 6 /hpf (0-5); Specific Gravity,Urine 1.017 (1.001-1.035); Squamous Epithelial Cell,Urine 3 /hpf (0-4); Urobilinogen,Urine <2.0 mg/dL (<2.0); WBC,Urine 12 /hpf (0-5)
--- NOTE | 2017-10-05 11:07 | XR ---
EXAMINATION TYPE: XR KUB DATE OF EXAM: 10/05/2017 11:01 AM CLINICAL HISTORY: Constipation. History of ovarian cancer. TECHNIQUE: Single supine KUB image of the abdomen is obtained. COMPARISON: None. FINDINGS: Multiple scattered air-fluid levels are seen within nondilated small bowel centralized with in the abdomen. Small bowel measures up to 2.6 cm. Paucity of colonic stool is present. Surgical clip s are scattered throughout the abdomen. No evidence of pneumoperitoneum. No abnormal calcification is seen. The lung bases are clear and the osseous structures are intact. IMPRESSION: Scattered centralized air-fluid levels within nondilated small bowel with paucity of colo melissa bowel gas. Findings likely represent small bowel ileus as there is no bowel dilatation.
[2017-10-05 11:09] LABS: Albumin 3.9 g/dL (3.5-5.0); Calcium 9.6 mg/dL (8.4-10.2); Total Bilirubin 0.5 mg/dL (0.2-1.3); Total Protein 6.9 g/dL (6.3-8.2)
[2017-10-05] MEDS ORDERED: MORPHINE SULFATE 4 MG/ML SYRINGE IVP STA (11:09)
[2017-10-05] MEDS ORDERED: hydrALAZINE HCL 20 MG/ML 1 ML VIAL IVP STA (11:13)
[2017-10-05 11:14] LABS: Potassium 4.3 mmol/L (3.5-5.1)
[2017-10-05] MEDS ORDERED: LORazepam 2 MG/ML INJ IV STA (12:48)
[2017-10-05] MEDS ORDERED: RX INFO: IV CONTRAST WAS GIVEN 1 EACH MISC MISCELLANE PRN (14:55)
[2017-10-05] MEDS ORDERED: LABETALOL 5 MG/ML VIAL MDV IVP STA (15:03)
[2017-10-05] MEDS ORDERED: diphenhydrAMINE 50 MG/ML 1 ML VIAL IVP STA (15:04)
[2017-10-05] MEDS ORDERED: ACETAMINOPHEN TAB 500 MG TAB PO STA (15:04)
[2017-10-05] MEDS ORDERED: FAMOTIDINE 20 MG/2 ML VIAL IV STA (15:04)
[2017-10-05] MEDS ORDERED: methylPREDNISolone SOD SUCCI 125 MG/2 ML VIAL IV STA (15:04)
[2017-10-05] MEDS ORDERED: cefTRIAXone IN SWFI 1,000 MG/10 ML SYRINGE IVP STA (15:08)
[2017-10-05] MEDS ORDERED: IBUPROFEN IV 600 MG in SODIUM CHLORIDE 0.9% 250 ML IV STA (15:09)
[2017-10-05] MEDS ORDERED: SODIUM CHLORIDE 0.9% 500 ML IV SCH (15:15)
[2017-10-05] MEDS ORDERED: SODIUM CHLORIDE 0.9% 1,000 ML IV ONE (16:00)
--- NOTE | 2017-10-05 16:03 | CT ---
EXAMINATION TYPE: CT abdomen pelvis w con DATE OF EXAM: 10/05/2017 COMPARISON: 05/26/2016 HISTORY: Nausea and vomiting. Poor historian. CT DLP: 1395.9 mGycm CONTRAST: CT scan of the abdomen and pelvis is performed without Oral Contrast and with IV Contrast, patient in jected with 80ml mL of Isovue 300. FINDINGS: LUNG BASES-: Patchy infiltrate right middle lobe is suspicious for pneumonia. LIVER/GB: Cholecystectomy clips are in place. There is mild hepatic steatosis. No space occupying hepatic lesion. Biliary tree is of normal caliber. PANCREAS: No inflammation. No distinct mass. SPLEEN: No splenic enlargement. No lesion seen. ADRENALS: No nodule. No thickening. KIDNEYS/BLADDER: There is bilateral hydronephrosis right greater than left without obstructing calcul us. No nephrolithiasis. No distinct renal mass. Urinary bladder grossly unremarkable. BOWEL: There is soft tissue mass within the right hemipelvis measuring 4.7 x 3.9 cm with the dilated bowel extending to the level of this mass. Bowel and measures up to 3 cm with scattered air-fluid lev els identified. Omentectomy clips are present. GENITAL ORGANS: Postoperative changes of hysterectomy and oophorectomy. There is soft tissue within the right hemipelvis measuring 4.7 x 3.9 cm may reflect residual tumor and/or recurrent renal tumor. LYMPH NODES: Right external iliac lymph node measuring 1.5 cm. No additional greater than 1cm abdomi nal or pelvic lymph nodes are appreciated. AORTA: No significant abnormality. OSSEOUS STRUCTURES: No significant abnormality is seen. OTHER: No significant additional abnormality is seen. IMPRESSION: 1. Soft tissue right hemipelvis may reflect recurrent or residual ovarian neoplasm. As noted there is resultant bilateral hydronephrosis right greater than left which is an interval finding. In addition there are mildly dilated loops of small bowel possibly related to early partial obstruction secondar y to the aforementioned mass. 2. Mild hepatic steatosis.
[2017-10-05] MEDS ORDERED: ACETAMINOPHEN TAB 325 MG TAB PO PRN (18:05)
[2017-10-05] MEDS: SODIUM CHLORIDE 0.9% 1,000 ML IV SCH (18:19)
--- NOTE | 2017-10-05 18:47 | XR ---
EXAMINATION TYPE: XR chest 2V DATE OF EXAM: 10/05/2017 COMPARISON: 10/05/2015 HISTORY: Nausea and vomiting TECHNIQUE: Frontal and lateral views of the chest are obtained. FINDINGS: There is no heart failure. There is right central venous catheter with tip in the superior vena cava. Heart size is normal. There is no pleural effusion. There is mild infiltrate in the right middle lobe. IMPRESSION: There is new right middle lobe pneumonia compared to old exam. Normal heart.
[2017-10-05] MEDS: GABAPENTIN 300 MG CAP PO SCH ×2 (19:11→22:34)
[2017-10-05] MEDS: LISINOPRIL 5 MG TAB PO SCH (19:11)
[2017-10-05] MEDS: DILTIAZEM CD 120 MG CAP.ER.24H PO SCH (19:11)
[2017-10-05] MEDS: ALPRAZolam 0.25 MG TAB PO PRN (19:13)
[2017-10-05] MEDS: HYDROcodone/APAP 10-325MG 1 EACH TAB PO PRN (20:36)
[2017-10-05] MEDS ORDERED: VANCOMYCIN IV PER PHARMACY 1 EACH MISC MISCELLANE PRN (20:56)
[2017-10-05] MEDS ORDERED: ACETAMINOPHEN IV (For NPO) 1,000 MG in EMPTY BAG 1 BAG IVPB PRN (20:57)
[2017-10-05] MEDS: VANCOMYCIN 1,500 MG in SODIUM CHLORIDE 0.9% 250 ML IVPB SCH (22:33)
[2017-10-05] MEDS: MEROPENEM 1 GM in SODIUM CHLORIDE 0.9% 100 ML IVPB SCH (22:34)
[2017-10-06] MEDS: SODIUM CHLORIDE 0.9% 1,000 ML IV SCH ×5 (01:13→20:58)
[2017-10-06] MEDS: DILTIAZEM CD 120 MG CAP.ER.24H PO SCH (07:48)
[2017-10-06] MEDS: CARVEDILOL 6.25 MG TAB PO SCH ×2 (07:48→16:56)
[2017-10-06] MEDS: GABAPENTIN 300 MG CAP PO SCH ×3 (07:48→21:45)
[2017-10-06] MEDS: MEROPENEM 1 GM in SODIUM CHLORIDE 0.9% 100 ML IVPB SCH ×2 (07:49→20:54)
[2017-10-06] MEDS: LISINOPRIL 5 MG TAB PO SCH (07:49)
[2017-10-06] MEDS: HYDROcodone/APAP 10-325MG 1 EACH TAB PO PRN ×2 (07:51→16:51)
[2017-10-06] MEDS: ALPRAZolam 0.25 MG TAB PO PRN ×2 (07:51→16:51)
[2017-10-06] MEDS ORDERED: NITROGLYCERIN SL TABS 0.4 MG TAB SUBLINGUAL PRN (11:04)
[2017-10-06] MEDS: VANCOMYCIN 1,500 MG in SODIUM CHLORIDE 0.9% 250 ML IVPB SCH (13:18)
--- NOTE | 2017-10-06 14:32 | P.CONS ---
History of Present Illness - Reason for Consult Consult date: 10/06/17 Abdominal pain, nausea, vomiting - History of Present Illness This is a 62-year-old female patient who has a past history significant for ovarian cancer has been on maintenance chemotherapy and under the treatment of Dr. Sean Trinidad, [place]. Patient states that she was recently taken off chemotherapy 3 weeks ago as her protein levels are too high in her urine. This is to be reevaluated and possibly start a new maintenance chemotherapy. Patient states that she did have him abdominal pain and constipation with cramping pain about 2 weeks ago and went to [facility] and underwent a CAT scan and she was sent home. At that time she did not have the vomiting nor fever. Patient now presents with sudden onset of nausea and vomiting along with abdominal pain and cramping and constipation. She did have a bowel movement yesterday morning that was normal and later in the day she had diarrhea. She no longer has any diarrhea. She does complain of pressure and burning when she initiates urination. She denies any history of urinary tract infections. She presented with nausea vomiting and fevers. Temperature max is been 101.8, white count 10.7, BUN 23 creatinine 1.08. CAT scan of the abdomen and pelvis revealed a soft tissue mass in the right hemipelvis of a recurrent or residual neoplasm. Bilateral [place] right greater than left possible early small bowel obstruction secondary to mass. Mild hepatic steatosis. Chest x-ray shows new right middle lobe pneumonia. Patient was initially on ceftriaxone and admitted to the [facility] floor. Antibiotics have been changed to meropenem and vancomycin with improvement of her symptoms. Review of Systems All systems: negative Constitutional: Reports chills, Reports fatigue, Reports fever, Reports poor appetite Eyes: denies blurred vision, denies pain Ears, nose, mouth and throat: Denies dental pain, Denies headache, Denies mouth pain, Denies sore throat, Denies vertigo Cardiovascular: Denies chest pain, Denies dyspnea on exertion, Denies leg edema , Denies lightheadedness, Denies shortness of breath, Denies syncope Respiratory: Denies cough, Denies cough with sputum, Denies dyspnea, Denies excessive sputum, Denies hemoptysis, Denies home oxygen, Denies wheezing Gastrointestinal: Reports abdominal pain, Reports diarrhea, Reports nausea, Reports vomiting Genitourinary: Reports dysuria, Denies hematuria Musculoskeletal: Denies myalgias Integumentary: Denies pruritus, Denies rash Neurological: Denies numbness, Denies weakness Psychiatric: Denies anxiety, Denies depression Endocrine: Denies fatigue, Denies weight change Past Medical History Past Medical History: Cancer, Deep Vein Thrombosis (DVT), GERD/Reflux Additional Past Medical History / Comment(s): tmj, OVARIAN CANCER History of Any Multi-Drug Resistant Organisms: None Reported Past Surgical History: Adenoidectomy, Appendectomy, Cholecystectomy, Heart Catheterization With Stent, Hysterectomy, Tonsillectomy Additional Past Surgical History / Comment(s): ovarian cancer with bilateral oopherectomy 2005; 2 open exploratory abdominal surgery, mediport placed 2011 Past Anesthesia/Blood Transfusion Reactions: No Reported Reaction Date of Last Stent Placement:: 2011 Smoking Status: Never smoker Additional Past Alcohol Use History / Comment(s): Patient is been a lifelong nonsmoker. She lives at home with her friend and a dog. - Past Family History Mother Family Medical History: Diabetes Mellitus, Dialysis Brother(s) Family Medical History: Cancer Additional Family Medical History / Comment(s): lung cancer- since passed Sister(s) Family Medical History: CVA/TIA Father Family Medical History: Neurologic Disorder Additional Family Medical History / Comment(s): alzheimers Medications and Allergies Home Medications Medication Instructions Recorded Confirmed Type ALPRAZolam [Xanax] 0.25 mg PO TID PRN 08/25/14 10/05/17 History Diltiazem HCl [Diltiazem 24Hr ER] 120 mg PO DAILY 08/25/14 10/05/17 History Escitalopram [Lexapro] 20 mg PO DAILY 08/25/14 10/05/17 History HYDROcodone/APAP 10-325MG [[place] 1 tab PO QID PRN 08/25/14 10/05/17 History 10-325] Gabapentin [Neurontin] 300 mg PO TID #90 cap 08/28/14 10/05/17 Rx Nitroglycerin Extended Release 2.5 mg PO BID capsule.er 08/28/14 10/05/17 Rx [Nitro-Bid] Rivaroxaban [Xarelto] 20 mg PO DAILY 10/14/14 10/05/17 History Carvedilol 6.25 mg PO BID 10/05/15 10/05/17 History Lisinopril 5 mg PO DAILY 10/05/15 10/05/17 History Nitroglycerin Sl Tabs [Nitrostat] 0.4 mg PO Q5M PRN 10/05/15 10/05/17 History Ondansetron HCl [Zofran] 8 mg PO BID PRN 10/05/15 10/05/17 History Zolpidem [Ambien] 10 mg PO HS PRN 08/04/16 10/05/17 History Polyethylene Glycol 3350 [Miralax] 17 gm PO DAILY 10/05/17 10/05/17 History diphenhydrAMINE HCL [Benadryl] 25 mg PO HS 10/05/17 10/05/17 History Allergies Allergy/AdvReac Type Severity Reaction Status Date / Time codeine Allergy Itching Verified 10/05/17 10:59 iodine Allergy Itching Verified 10/05/17 10:59 Penicillins Allergy Itching Verified 10/05/17 10:59 CHEMO DRUG Allergy Unknown Uncoded 10/05/17 10:31 Physical Exam Vitals: Vital Signs Temp Pulse Pulse Resp BP BP Pulse Ox 10/06/17 05:35 97.6 F 89 16 109/54 93 L 10/06/17 02:12 18 93 L 10/06/17 01:14 98.6 F 10/05/17 23:00 100.2 F H 84 16 126/60 91 L 10/05/17 20:42 100.3 F H 122 H 18 137/97 97 10/05/17 19:15 117 H 142/73 10/05/17 17:25 101.8 F H 115 H 18 157/103 99 10/05/17 16:09 109 H 18 179/83 95 10/05/17 15:00 118 H 16 209/95 94 L 10/05/17 14:07 120 H 18 176/81 96 Intake and Output 10/05/17 10/06/17 10/06/17 22:59 06:59 14:59 Intake Total 2150 Balance 2150 Intake: Intake, IV Titration 2150 Amount Meropenem 1 gm In Sodium 100 Chloride 0.9% 100 ml @ 200 mls/hr IVPB Q12HR [facility] Rx#:[id number] Sodium Chloride 0.9% 1, 1800 000 ml @ 200 mls/hr IV . Q5H [facility] Rx#:[id number] Vancomycin 1,500 mg In 250 Sodium Chloride 0.9% 250 ml @ 125 mls/hr IVPB Q16H [facility] Rx#:[id number] Other: Voiding Method Toilet Toilet # Voids 1 1 1 Gen: This is a 62-year-old female patient. She is sleeping awakens easily to verbal stimuli. She appears to be in no acute distress. HEENT: Head is atraumatic, normocephalic. Pupils equal, round. Sclerae is anicteric. Oral mucous members are slightly dry. No thrush noted. Dentition is in good order. NECK: Supple. No JVD. No lymphadenopathy. No thyromegaly. LUNGS: Diminished. No wheezes. No intercostal retractions. HEART: Regular rate and rhythm. No murmur. ABDOMEN: Soft. Bowel sounds are present. No tenderness. No suprapubic tenderness. No CVA tenderness bilaterally. EXTREMITIES: No pedal edema. No calf tenderness. Dorsalis pedis +2 bilaterally. NEUROLOGICAL: Patient is awake, alert and oriented x3. Cranial nerves 2 through 12 are grossly intact. Results Results: Laboratory Results WBC 10.7 k/uL (3.8-10.6) H 10/05/17 10:40 RBC 4.36 m/uL (3.80-5.40) 10/05/17 10:40 Hgb 11.7 gm/dL (11.4-16.0) 10/05/17 10:40 Hct 36.4 % (34.0-46.0) 10/05/17 10:40 MCV 83.6 fL (80.0-100.0) 10/05/17 10:40 MCH 26.8 pg (25.0-35.0) 10/05/17 10:40 MCHC 32.1 g/dL (31.0-37.0) 10/05/17 10:40 RDW 15.5 % (11.5-15.5) 10/05/17 10:40 Plt Count 179 k/uL (150-450) 10/05/17 10:40 Neutrophils % 87 % 10/05/17 10:40 Lymphocytes % 8 % 10/05/17 10:40 Monocytes % 4 % 10/05/17 10:40 Eosinophils % 0 % 10/05/17 10:40 Basophils % 0 % 10/05/17 10:40 Neutrophils # 9.3 k/uL (1.3-7.7) H 10/05/17 10:40 Lymphocytes # 0.8 k/uL (1.0-4.8) L 10/05/17 10:40 Monocytes # 0.4 k/uL (0-1.0) 10/05/17 10:40 Eosinophils # 0.0 k/uL (0-0.7) 10/05/17 10:40 Basophils # 0.0 k/uL (0-0.2) 10/05/17 10:40 Hypochromasia Slight 10/05/17 10:40 Sodium 144 mmol/L (137-145) 10/05/17 10:40 Potassium 4.3 mmol/L (3.5-5.1) 10/05/17 10:40 Chloride 105 mmol/L (98-107) 10/05/17 10:40 Carbon Dioxide 24 mmol/L (22-30) 10/05/17 10:40 Anion Gap 15 mmol/L 10/05/17 10:40 BUN 23 mg/dL (7-17) H 10/05/17 10:40 Creatinine 1.08 mg/dL (0.52-1.04) H 10/05/17 10:40 Est GFR (CKD-EPI)AfAm 63 (>60 ml/min/1.73 sqM) 10/05/17 10:40 Est GFR (CKD-EPI)NonAf 55 (>60 ml/min/1.73 sqM) 10/05/17 10:40 Glucose 193 mg/dL (74-99) H 10/05/17 10:40 Plasma Lactic Acid [place] 2.0 mmol/L (0.7-2.0) 10/05/17 10:40 Calcium 9.6 mg/dL (8.4-10.2) 10/05/17 10:40 Total Bilirubin 0.5 mg/dL (0.2-1.3) 10/05/17 10:40 AST 43 U/L (14-36) H 10/05/17 10:40 ALT 28 U/L (9-52) 10/05/17 10:40 Alkaline Phosphatase 57 U/L (38-126) 10/05/17 10:40 Troponin I <0.012 ng/mL (0.000-0.034) 10/05/17 10:40 Total Protein 6.9 g/dL (6.3-8.2) 10/05/17 10:40 Albumin 3.9 g/dL (3.5-5.0) 10/05/17 10:40 Amylase 58 U/L (30-110) 10/05/17 10:40 Lipase 166 U/L (23-300) 10/05/17 10:40 Urine Color Yellow 10/05/17 10:32 Urine Appearance Cloudy (Clear) H 10/05/17 10:32 Urine pH 6.0 (5.0-8.0) 10/05/17 10:32 Ur Specific [place] 1.017 (1.001-1.035) 10/05/17 10:32 Urine Protein 4+ (Negative) H 10/05/17 10:32 Urine Glucose (UA) Trace (Negative) H 10/05/17 10:32 Urine Ketones Negative (Negative) 10/05/17 10:32 Urine Blood Moderate (Negative) H 10/05/17 10:32 Urine Nitrite Negative (Negative) 10/05/17 10:32 Urine Bilirubin Negative (Negative) 10/05/17 10:32 Urine Urobilinogen <2.0 mg/dL (<2.0) 10/05/17 10:32 Ur Leukocyte Esterase Negative (Negative) 10/05/17 10:32 Urine RBC 6 /hpf (0-5) H 10/05/17 10:32 Urine WBC 12 /hpf (0-5) H 10/05/17 10:32 Ur Squamous Epith Cells 3 /hpf (0-4) 10/05/17 10:32 Amorphous Sediment Rare /hpf (None) H 10/05/17 10:32 Urine Bacteria Rare /hpf (None) H 10/05/17 10:32 Hyaline Casts 62 /lpf (0-2) H 10/05/17 10:32 Granular Casts 11 /lpf (0) 10/05/17 10:32 Urine Mucus Rare /hpf (None) H 10/05/17 10:32 CBC & Chem 7: 10/05/17 10:40 10/05/17 10:40 Labs: Microbiology - Last 24 Hours (Table) 10/05/17 10:32 Urine Culture - Preliminary Urine,Voided Assessment and Plan Plan: This is a 62-year-old female patient who presented to hospital with signs of sepsis with fever chills, nausea and vomiting and mild leukocytosis most likely secondary to a right middle lobe pneumonia. Patient has been placed on meropenem and vancomycin with improvement of her symptoms. Cultures of urine and blood are currently in process. Her diarrhea has resolved. She is currently on ice chips which would be expected to be advanced. Continue supportive care. Further recommendations as patient progresses. The above dictated assessment and findings were discussed with Dr. Concepcion. The impression and plan of care have been directed as dictated. Chanell Bravo nurse practitioner acting as scribe for Dr. Concepcion.
--- NOTE | 2017-10-06 14:56 | P.CON ---
Consult Note - . Consult date: 10/06/17 Assessment/Plan:: This is a 62-year-old female patient who has a past history significant for ovarian cancer has been on maintenance chemotherapy and under the treatment of Dr. Sean Trinidad [place]. Patient states that she was recently taken off chemotherapy 3 weeks ago as her protein levels are too high in her urine. This is to be reevaluated and possibly start a new maintenance chemotherapy. Patient states that she did have him abdominal pain and constipation with cramping pain about 2 weeks ago and went to [facility] and underwent a CAT scan and she was sent home. At that time she did not have the vomiting nor fever. Patient now presents with sudden onset of nausea and vomiting along with abdominal pain and cramping and constipation. She did have a bowel movement yesterday morning that was normal and later in the day she had diarrhea. She no longer has any diarrhea. She does complain of pressure and burning when she initiates urination. She denies any history of urinary tract infections. She presented with nausea vomiting and fevers. Temperature max is been 101.8, white count 10.7, BUN 23 creatinine 1.08. CAT scan of the abdomen and pelvis revealed a soft tissue mass in the right hemipelvis of a recurrent or residual neoplasm. Bilateral [place] right greater than left possible early small bowel obstruction secondary to mass. Mild hepatic steatosis. Chest x-ray shows new right middle lobe pneumonia. Patient was initially on ceftriaxone and admitted to the [place] floor. Antibiotics have been changed to meropenem and vancomycin with improvement of her symptoms. Please see the consult note is dictated by nurse practitioner Mrs. Chanell Bravo. This pleasant woman has extensive past medical history as noted. Presents to hospital with high-grade fever chill rigor and resultant generalized malaise and body aches. His thought evidence of the new right middle lobe pneumonia his etiology of her current bout of sepsis resulting in the fever and chills. She is oriented he started to have some improvement with Her were initiated the time of her admission and a cough for the consult. She is at this time denying any new troubles is been able to eat surly does not feel at her baseline but is having improvement. Currently cultures are in process which will further help direct her antibiotic therapy as she improves over the next several days. Continue supportive care. She does have abnormality per her computed tomography scan that need to be followed up by her oncologist in the [place] area. I agree with evaluation, assessment and plan as dictated by nurse practitioner Mrs. Chanell Bravo.
--- NOTE | 2017-10-06 17:31 | P.CONS ---
History of Present Illness - Reason for Consult Consult date: 10/06/17 Ovarian cancer Requesting physician: Ted Fernandes - Chief Complaint Constipation, Abdominal Pain - History of Present Illness Mrs. Galloway is 62-year-old female patient who has a known past history of ovarian cancer. She has been on maintenance chemotherapy/anti- angiogenesisand under the treatment of Dr. Bryant Trinidad, [place]. Her treatment was held secondary to increased protein in urine (likely from Avastin treatments) She presents to ED with abdominal pain and constipation with cramping pain. Approximately 2 weeks ago she was evaluated at [facility] and a CT scan was completed. No fevers, chills or abdominal pain at that time. She has had nausea, vomiting and diarrhea. Diarrhea has now improved. She complains of some dysuria. Her fever was 101.8 on admission, Mild elevation in white count 10.7. CT scan of the abdomen and pelvis revealed a soft tissue mass in the right hemipelvis of a recurrent or residual neoplasm. Bilateral [place] right greater than left possible early small bowel obstruction secondary to mass. Mild hepatic steatosis. Chest x-ray shows new right middle lobe pneumonia. She was initiated on antibiotics, currently on meropenem and vancomycin. She states she is feeling better since admission. Review of Systems A 14 point review of systems assessed and completed and all negative except HPI Past Medical History Past Medical History: Cancer, Deep Vein Thrombosis (DVT), GERD/Reflux Additional Past Medical History / Comment(s): tmj, OVARIAN CANCER History of Any Multi-Drug Resistant Organisms: None Reported Past Surgical History: Adenoidectomy, Appendectomy, Cholecystectomy, Heart Catheterization With Stent, Hysterectomy, Tonsillectomy Additional Past Surgical History / Comment(s): ovarian cancer with bilateral oopherectomy 2005; 2 open exploratory abdominal surgery, mediport placed 2011 Past Anesthesia/Blood Transfusion Reactions: No Reported Reaction Date of Last Stent Placement:: 2011 Smoking Status: Never smoker Additional Past Alcohol Use History / Comment(s): Patient is been a lifelong nonsmoker. She lives at home with her friend and a dog. - Past Family History Mother Family Medical History: Diabetes Mellitus, Dialysis Brother(s) Family Medical History: Cancer Additional Family Medical History / Comment(s): lung cancer- since passed Sister(s) Family Medical History: CVA/TIA Father Family Medical History: Neurologic Disorder Additional Family Medical History / Comment(s): alzheimers Medications and Allergies Home Medications Medication Instructions Recorded Confirmed Type ALPRAZolam [Xanax] 0.25 mg PO TID PRN 08/25/14 10/05/17 History Diltiazem HCl [Diltiazem 24Hr ER] 120 mg PO DAILY 08/25/14 10/05/17 History Escitalopram [Lexapro] 20 mg PO DAILY 08/25/14 10/05/17 History HYDROcodone/APAP 10-325MG [[place] 1 tab PO QID PRN 08/25/14 10/05/17 History 10-325] Gabapentin [Neurontin] 300 mg PO TID #90 cap 08/28/14 10/05/17 Rx Nitroglycerin Extended Release 2.5 mg PO BID capsule.er 08/28/14 10/05/17 Rx [Nitro-Bid] Rivaroxaban [Xarelto] 20 mg PO DAILY 10/14/14 10/05/17 History Carvedilol 6.25 mg PO BID 10/05/15 10/05/17 History Lisinopril 5 mg PO DAILY 10/05/15 10/05/17 History Nitroglycerin Sl Tabs [Nitrostat] 0.4 mg PO Q5M PRN 10/05/15 10/05/17 History Ondansetron HCl [Zofran] 8 mg PO BID PRN 10/05/15 10/05/17 History Zolpidem [Ambien] 10 mg PO HS PRN 08/04/16 10/05/17 History Polyethylene Glycol 3350 [Miralax] 17 gm PO DAILY 10/05/17 10/05/17 History diphenhydrAMINE HCL [Benadryl] 25 mg PO HS 10/05/17 10/05/17 History Allergies Allergy/AdvReac Type Severity Reaction Status Date / Time codeine Allergy Itching Verified 10/05/17 10:59 iodine Allergy Itching Verified 10/05/17 10:59 Penicillins Allergy Itching Verified 10/05/17 10:59 CHEMO DRUG Allergy Unknown Uncoded 10/05/17 10:31 Physical Exam Vitals: Vital Signs Temp Pulse Resp BP Pulse Ox 10/06/17 15:00 97.3 F L 73 16 110/53 93 L 10/06/17 05:35 97.6 F 89 16 109/54 93 L 10/06/17 02:12 18 93 L 10/06/17 01:14 98.6 F 10/05/17 23:00 100.2 F H 84 16 126/60 91 L 10/05/17 20:42 100.3 F H 122 H 18 137/97 97 10/05/17 19:15 117 H 142/73 10/05/17 17:25 101.8 F H 115 H 18 157/103 99 Intake and Output 10/06/17 10/06/17 10/06/17 06:59 14:59 22:59 Intake Total 2150 Balance 2150 Intake: Intake, IV Titration 2150 Amount Meropenem 1 gm In Sodium 100 Chloride 0.9% 100 ml @ 200 mls/hr IVPB Q12HR [facility] Rx#:[id number] Sodium Chloride 0.9% 1, 1800 000 ml @ 200 mls/hr IV . Q5H [facility] Rx#:[id number] Vancomycin 1,500 mg In 250 Sodium Chloride 0.9% 250 ml @ 125 mls/hr IVPB Q16H [facility] Rx#:[id number] Other: Voiding Method Toilet # Voids 1 1 - Constitutional General appearance: average body habitus, no acute distress - EENT Eyes: EOMI, dentition normal, normal appearance ENT: hard of hearing, NA/AT, normal oropharynx - Neck Supple, trachea midline Neck: normal ROM - Respiratory Respiratory: bilateral: diminished (Bibasilar, No increased Effort) - Cardiovascular Rhythm: regular Heart sounds: normal: S1, S2 - Gastrointestinal General gastrointestinal: distended, tenderness - Integumentary Integumentary: pale - Neurologic Neurologic: CNII-XII intact - Musculoskeletal Musculoskeletal: generalized weakness, strength equal bilaterally - Psychiatric Psychiatric: A&O x's 3, appropriate affect, intact judgment & insight Results CBC & Chem 7: 10/05/17 10:40 10/05/17 10:40 Labs: Microbiology - Last 24 Hours (Table) 10/05/17 10:32 Urine Culture - Preliminary Urine,Voided Assessment and Plan Plan: Assessment and Recommendations: 1. New Right Middle Lobe Pneumonia - IV abx - Infectious Disease is following 2. Soft Tissue Mass in Right Hemipelvis measuring 4.7X3.9 - Hx: Of Ovarian Cancer in 2005 and recurrence in 2008, she follows with Dr. Hurtado GYNONC at [facility] - Unclear if this is a new finding or previously present representing stable disease. She has an appointment with Dr. Hurtado in 2 weeks and has been advised to keep this appointment to discuss this finding with him. 3. Fevers/Chills, SIRS - Bhakta Cultures are Pending - Afebrile since 2300 on 10/05 - Supportive care per Infectious Disease and Primary team. Physician Attestation: I have completed the full history and physical of this patient and agree with above dictation by Bettye Pérez NP, dictated as a scribe. Time with Patient: Greater than 30
--- NOTE | 2017-10-06 18:30 | HP ---
HISTORY AND PHYSICAL CHIEF COMPLAINT: Lower abdominal pain, vomiting, fever and lethargy. HISTORY OF PRESENT ILLNESS: This is another admission for this 62-year-old white female with metastatic ovarian carcinoma for which she has been treated for number of years. She has been doing fairly well and then she presented to the emergency room with a fever of 100.2. Slightly elevated white count and renal function. Lactic acid was 2. There was concern that this may be a developing sepsis. It was difficult to get a history from her in the emergency room because she is a little bit lethargic, but she complained of no focal neurologic problems, diplopia, headache, chest pain, cough, hemoptysis, upper abdominal pain, though she had lower abdominal discomfort. She had no hematemesis, melena, hematochezia, etc. It is it looked as though the source of her infection was urinary tract. In the emergency room, her x-ray was read as possibly demonstrating a right middle lobe pneumonitis. PHYSICAL EXAM: VITAL SIGNS: Blood pressure is 186/94, with a pulse of 103, respirations of 40 and a temperature of 100.2. GENERAL: In general she appeared to be slightly dehydrated, pale and acutely ill. SKIN: Skin was hot and dry. HEENT: Head, ears, eyes, nose, mouth and throat were normal. NECK: There are no neck masses. Neck is supple. CHEST: Chest is clear. There are no rales or rhonchi. CARDIOVASCULAR: Cardiac exam demonstrated tachycardia. ABDOMEN: The abdomen is soft and tender in the lower aspects. There are no definite masses or visceromegaly. EXTREMITIES: Normal. NEUROLOGICAL: Neurologically she is intact. She is admitted to the hospital with diagnoses of: 1. Urinary tract infection. 2. Possible early sepsis. 3. Possible right middle lobe pneumonitis. 4. Delirium. 5. Dehydration versus renal failure. 6. Bilateral hydronephrosis. 7. Elevated blood sugar at 193. PLAN: 1. Bed rest. 2. IV fluids. 3. IV antibiotics. 4. Infectious Disease consult. 5. IV antibiotics. MMODL / IJN: [id number] /
--- NOTE | 2017-10-06 18:30 | PN ---
PROGRESS NOTE DATE OF SERVICE: 10/06/17. CHIEF COMPLAINT: Urinary tract infection and sepsis. HISTORY OF PRESENT ILLNESS: This lady is feeling a bit better. Nausea has subsided. She still has the lower abdominal discomfort. Temperature has gone down. PHYSICAL EXAM: Cardiac exam is normal. Chest is clear. Abdomen is soft, a little bit tender in the lower aspects. There are no definite masses. IMPRESSION: 1. Urinary tract infection. 2. Bilateral hydronephrosis. 3. Renal failure. 4. Dehydration. 5. Elevated blood sugar. 6. Metastatic carcinoma of the ovary. PLAN: 1. Continue with IV fluids and antibiotics. 2. Continue to follow renal function. 3. Oncology consult. 4. Infectious Disease consult. MMODL / IJN: [id number] /
[2017-10-06] MEDS: NITROGLYCERIN EXTENDED RELEASE 2.5 MG CAPSULE.ER PO SCH ×2 (20:54→21:45)
[2017-10-06] MEDS: ZOLPIDEM 5 MG TAB PO PRN (23:00)
[2017-10-07] MEDS: ALPRAZolam 0.25 MG TAB PO PRN ×2 (01:31→17:33)
[2017-10-07] MEDS: SODIUM CHLORIDE 0.9% 1,000 ML IV SCH ×4 (03:10→17:34)
[2017-10-07] MEDS: HYDROcodone/APAP 10-325MG 1 EACH TAB PO PRN ×3 (04:08→20:24)
[2017-10-07] MEDS: VANCOMYCIN 1,500 MG in SODIUM CHLORIDE 0.9% 250 ML IVPB SCH ×2 (05:33→21:37)
[2017-10-07] MEDS: DILTIAZEM CD 120 MG CAP.ER.24H PO SCH (09:29)
[2017-10-07] MEDS: CARVEDILOL 6.25 MG TAB PO SCH ×2 (09:29→17:33)
[2017-10-07] MEDS: ESCITALOPRAM 20 MG TAB PO SCH (09:29)
[2017-10-07] MEDS: LISINOPRIL 5 MG TAB PO SCH (09:29)
[2017-10-07] MEDS: NITROGLYCERIN EXTENDED RELEASE 2.5 MG CAPSULE.ER PO SCH ×2 (09:29→20:22)
[2017-10-07] MEDS: GABAPENTIN 300 MG CAP PO SCH ×3 (09:29→21:37)
[2017-10-07] MEDS: RIVAROXABAN 20 MG TAB PO SCH (09:29)
[2017-10-07] MEDS: POLYETHYLENE GLYCOL 3350 17 GM POWD.PACK PO SCH (09:30)
[2017-10-07] MEDS: MEROPENEM 1 GM in SODIUM CHLORIDE 0.9% 100 ML IVPB SCH ×2 (09:40→20:22)
--- NOTE | 2017-10-07 12:42 | PN ---
PROGRESS NOTE DATE OF SERVICE: 10/07/17 CHIEF COMPLAINT: Urinary tract infection and possible right middle lobe pneumonitis. HISTORY OF PRESENT ILLNESS: This lady is feeling a little bit better but she still has significant lower abdominal pain. She has been given MiraLAX and is starting to develop bowel activity which she has not had. She is still quite bloated. PHYSICAL EXAM: Chest is clear and the abdomen is slightly bloated, distended. She is tender throughout both lower quadrants. No masses. Bowel sounds are heard. IMPRESSION: 1. Lower abdominal pain. 2. Urinary tract infection. 3. Possible right middle lobe pneumonia. 4. Obstructive ureteropathy. 5. Renal failure. 6. Recurrent ovarian carcinoma. PLAN: 1. Continue with antibiotics and IV fluids. 2. Wait to see if she begins to pass stool normally. In the meantime, we will advance her diet. JIMMIE / ROBERTN: [id number] /
[2017-10-07] MEDS: ONDANSETRON 4 MG/2 ML VIAL IVP PRN (17:37)
[2017-10-07] MEDS: MORPHINE SULFATE 4 MG/ML SYRINGE IVP PRN ×2 (19:20→23:29)
[2017-10-08] MEDS: SODIUM CHLORIDE 0.9% 1,000 ML IV SCH ×6 (01:53→19:36)
[2017-10-08] MEDS: HYDROcodone/APAP 10-325MG 1 EACH TAB PO PRN ×3 (03:39→19:35)
[2017-10-08] MEDS: MORPHINE SULFATE 4 MG/ML SYRINGE IVP PRN ×3 (04:41→15:12)
[2017-10-08 07:17] LABS: Calcium 7.9 mg/dL (8.4-10.2); Potassium 3.6 mmol/L (3.5-5.1)
[2017-10-08] MEDS: MEROPENEM 1 GM in SODIUM CHLORIDE 0.9% 100 ML IVPB SCH ×2 (08:11→21:31)
[2017-10-08] MEDS: GABAPENTIN 300 MG CAP PO SCH ×3 (08:12→21:30)
[2017-10-08] MEDS: LISINOPRIL 5 MG TAB PO SCH (08:12)
[2017-10-08] MEDS: RIVAROXABAN 20 MG TAB PO SCH (08:12)
[2017-10-08] MEDS: DILTIAZEM CD 120 MG CAP.ER.24H PO SCH (08:12)
[2017-10-08] MEDS: NITROGLYCERIN EXTENDED RELEASE 2.5 MG CAPSULE.ER PO SCH ×2 (08:12→21:30)
[2017-10-08] MEDS: ESCITALOPRAM 20 MG TAB PO SCH (08:12)
[2017-10-08] MEDS: POLYETHYLENE GLYCOL 3350 17 GM POWD.PACK PO SCH (08:13)
[2017-10-08] MEDS: CARVEDILOL 6.25 MG TAB PO SCH ×2 (08:13→17:32)
[2017-10-08] MEDS ORDERED: VANCOMYCIN TROUGH DUE 1 EACH MISC MISCELLANE ONE (13:00)
--- NOTE | 2017-10-08 13:22 | PN ---
PROGRESS NOTE CHIEF COMPLAINT: Abdominal pain. HISTORY OF PRESENT ILLNESS: This lady's abdominal pain is starting to get a little bit worse. She was started on morphine last night and she still is quite bloated. PHYSICAL EXAM: CHEST: Clear. Cardiac exam is normal. Abdomen is soft, nontender. IMPRESSION: 1. Abdominal pain. 2. Possible recurrence of ovarian neoplasm in the pelvis. 3. Mild renal failure. PLAN: 1. Increase analgesia. 2. Continue to follow with Oncology. MMODL / IJN: [id number] /
[2017-10-08] MEDS: VANCOMYCIN 1,250 MG in SODIUM CHLORIDE 0.9% 250 ML IVPB SCH (17:32)
[2017-10-08] MEDS: ALPRAZolam 0.25 MG TAB PO PRN (19:35)
[2017-10-08] MEDS: ZOLPIDEM 5 MG TAB PO PRN (23:12)
[2017-10-09] MEDS: MORPHINE SULFATE 4 MG/ML SYRINGE IVP PRN (00:53)
[2017-10-09] MEDS: ONDANSETRON 4 MG/2 ML VIAL IVP PRN (02:39)
[2017-10-09] MEDS: SODIUM CHLORIDE 0.9% 1,000 ML IV SCH ×5 (04:08→20:45)
[2017-10-09 07:43] LABS: Calcium 7.9 mg/dL (8.4-10.2); Potassium 3.6 mmol/L (3.5-5.1)
[2017-10-09] MEDS: ALPRAZolam 0.25 MG TAB PO PRN ×2 (08:27→20:26)
[2017-10-09] MEDS: CARVEDILOL 6.25 MG TAB PO SCH ×2 (08:27→17:27)
[2017-10-09] MEDS: HYDROcodone/APAP 10-325MG 1 EACH TAB PO PRN ×2 (08:27→20:26)
[2017-10-09] MEDS: MEROPENEM 1 GM in SODIUM CHLORIDE 0.9% 100 ML IVPB SCH ×2 (08:27→21:17)
[2017-10-09] MEDS: LISINOPRIL 5 MG TAB PO SCH (08:28)
[2017-10-09] MEDS: ESCITALOPRAM 20 MG TAB PO SCH (08:28)
[2017-10-09] MEDS: RIVAROXABAN 20 MG TAB PO SCH (08:28)
[2017-10-09] MEDS: DILTIAZEM CD 120 MG CAP.ER.24H PO SCH (08:28)
[2017-10-09] MEDS: NITROGLYCERIN EXTENDED RELEASE 2.5 MG CAPSULE.ER PO SCH ×2 (08:28→21:17)
[2017-10-09] MEDS: GABAPENTIN 300 MG CAP PO SCH ×3 (08:28→21:17)
[2017-10-09] MEDS: POLYETHYLENE GLYCOL 3350 17 GM POWD.PACK PO SCH (08:29)
[2017-10-09] MEDS: VANCOMYCIN 1,250 MG in SODIUM CHLORIDE 0.9% 250 ML IVPB SCH (09:26)
[2017-10-09 15:57] VITALS: RESP 16
[2017-10-09] MEDS: ONDANSETRON 4 MG TAB PO PRN (19:35)
[2017-10-09] MEDS: ZOLPIDEM 5 MG TAB PO PRN (22:22)
--- NOTE | 2017-10-09 23:21 | PN ---
PROGRESS NOTE CHIEF COMPLAINT: Abdominal pain. HISTORY OF PRESENT ILLNESS: This lady is doing well. Temperature has been down. Oncology is deferring to her doctors in [place]. She is feeling fairly well. She has had no fever, chills, etc. She is still having some lower abdominal pain, but it is better. PHYSICAL EXAM: Chest is clear. Cardiac exam is normal. She is still a little bit distended and tender over the lower abdomen. IMPRESSION: 1. Lower abdominal pain. 2. Carcinoma of the ovary. 3. Probable urinary tract infection. 4. Hydronephrosis, worse on the right than on the left, probably due to pelvic neoplasm. 5. Possible right lower lobe pneumonitis. 6. Mild renal failure. PLAN: Will probably let her go home tomorrow and follow up with her oncologist in [place]. MMODL / IJN: [id number] /
[2017-10-10] MEDS: VANCOMYCIN 1,250 MG in SODIUM CHLORIDE 0.9% 250 ML IVPB SCH (01:58)
[2017-10-10] MEDS: SODIUM CHLORIDE 0.9% 1,000 ML IV SCH ×2 (01:58→10:39)
[2017-10-10] MEDS: ALPRAZolam 0.25 MG TAB PO PRN ×2 (05:56→13:50)
[2017-10-10] MEDS: ONDANSETRON 4 MG TAB PO PRN (05:56)
[2017-10-10] MEDS: HYDROcodone/APAP 10-325MG 1 EACH TAB PO PRN ×2 (05:56→13:13)
[2017-10-10 06:12] VITALS: BP 181/86; PULSE 72; TEMP 98.4
[2017-10-10 07:15] LABS: Calcium 7.6 mg/dL (8.4-10.2); Potassium 3.4 mmol/L (3.5-5.1)
[2017-10-10] MEDS: GABAPENTIN 300 MG CAP PO SCH (08:25)
[2017-10-10] MEDS: NITROGLYCERIN EXTENDED RELEASE 2.5 MG CAPSULE.ER PO SCH (08:25)
[2017-10-10] MEDS: CARVEDILOL 6.25 MG TAB PO SCH (08:25)
[2017-10-10] MEDS: POLYETHYLENE GLYCOL 3350 17 GM POWD.PACK PO SCH (08:25)
[2017-10-10] MEDS: RIVAROXABAN 20 MG TAB PO SCH (08:25)
[2017-10-10] MEDS: DILTIAZEM CD 120 MG CAP.ER.24H PO SCH (08:25)
[2017-10-10] MEDS: ESCITALOPRAM 20 MG TAB PO SCH (08:25)
[2017-10-10] MEDS: LISINOPRIL 5 MG TAB PO SCH (08:25)
[2017-10-10] MEDS: MEROPENEM 1 GM in SODIUM CHLORIDE 0.9% 100 ML IVPB SCH (08:30)
--- NOTE | 2017-10-11 06:46 | DS ---
DISCHARGE SUMMARY CHIEF COMPLAINT: Abdominal pain and vomiting. HISTORY OF PRESENT ILLNESS AND PHYSICAL EXAM: The details of this lady's history and physical can be found in the initial workup. LABORATORY STUDIES: While she was in the hospital she had laboratory studies details of which can be found in the laboratory section of her chart. COURSE IN THE HOSPITAL: After admission, she was placed on bedrest, started on intravenous fluids and was started on workup for abdominal pain. It was felt that she may be having an enlarging pelvic mass and there was concern that her ovarian neoplasm was expanding. She also had mild renal failure and the CT demonstrated mild hydronephrosis which was worse on the right than the left. However, during the hospitalization, her started to fall. The pain waxed and waned, and she was doing fairly well. On , it was felt that she could go home. She wants to follow up with her own oncology doctors in [place] and this is felt reasonable. She will go home on usual activity, diet and medication and we will follow her closely in the office. FINAL DIAGNOSES: 1. Lower abdominal pain. 2. Redeveloping ovarian carcinoma. 3. Renal failure. 4. Bilateral ureteral obstruction with hydronephrosis. OPERATIONS: None. CONSULTATIONS: Oncology. She is improved. MMODL / IJN: [id number] /
[2017-10-11] MEDS ORDERED: VANCOMYCIN TROUGH DUE 1 EACH MISC MISCELLANE ONE (09:00)
--- NOTE | 2017-10-13 12:51 | CDI ---
Last Revision, April 2017 Documentation Clarification Form Date: 10/13/17 From: Shanice Jaskaran Rima Bart, Packer Hours-8:30 am & 5 pm M-F Admit Date: 10/05/2017 4:00:00 PM Patient Name: Jesusita Galloway Visit Number: [id number] Discharge Date: 10/10/17 ATTENTION: The Clinical Documentation Specialists (CDI) and [facility] Coding Staff appreciate your assistance in clarifying documentation. Please respond to the clarification below the line at the bottom and electronically sign. The CDI & [facility] Coding staff will review the response and follow-up if needed. Please note: Queries are made part of the Legal Health Record. If you have any questions, please contact the author of this message via ITS. Dr. Kevin Metzger Sepsis is documented in the H&P, 10/06 PN, and Concepcion consults. The DS does not document sepsis. History/Risk Factors: met ovarian cancer, UTI w hydronephrosis WBC/Left Shift: 10.7/9.3 Lactic acid: 2.0 Blood cultures: no growth Vitals signs on admission: P: 120-118, R: 16-18, BP; 209/95 & 179/83, O2 stat: 94, 95 Treatment: IV Rocephin, IV Vanco, IV Merrem ID Consult: Dr. Concepcion-sepsis In your professional opinion, please clarify if these findings signify one of the following conditions, whether the condition is POA, and cause, if known: Condition Sepsis ruled out SIRS, without underlying infectious process Sepsis Severe Sepsis Septic Shock Other, please specify Unable to determine Please continue to document in your progress notes and discharge summary in order to capture severity of illness and risk of mortality. Include clinical findings that support your diagnosis. MTDD
--- NOTE | 2017-10-13 13:02 | CDI ---
Last Revision, April 2017 Documentation Clarification Form Date: 10/13/17 From: Shanice Jaskaran Rima Arriaga, Options Advisor Hours-8:30 am & 5 pm [place] Admit Date: 10/05/2017 4:00:00 PM Patient Name: Jesusita Galloway Visit Number: [id number] Discharge Date: 10/10/17 ATTENTION: The Clinical Documentation Specialists (CDI) and [facility] Coding Staff appreciate your assistance in clarifying documentation. Please respond to the clarification below the line at the bottom and electronically sign. The CDI & [facility] Coding staff will review the response and follow-up if needed. Please note: Queries are made part of the Legal Health Record. If you have any questions, please contact the author of this message via ITS. Dr. Kevin Metzger Renal failure is documented in the H&P, 10/06 PN, 10/07 PN, 10/08 PN, 10/09 PN and DS. History/Risk Factors: met ovarian cancer, HTN Curent BUN: 23, 18, 9, 7 Current Cr: 1.08, 1.10, 1.03, .81, .85 Current GFR : 55, 53, 58, 78, 73 Treatment: IV fluids In order to capture the severity of condition, please clarify if the condition signifies: Tubular Necrosis Acute kidney injury Acute on chronic renal failure CKD Stage 1 GFR >90 CKD Stage 2 GFR 60-89 CKD Stage 3 GFR 30-59 CKD Stage 4 GFR 15-29 CKD Stage 5 GFR <15 Chronic renal failure/Chronic Kidney disease (CKD) please stage if known CKD Stage 1 GFR >90 CKD Stage 2 GFR 60-89 CKD Stage 3 GFR 30-59 CKD Stage 4 GFR 15-29 CKD Stage 5 GFR <15 ESRD Other, please specify Unable to determine Please continue to document in your progress notes and discharge summary in order to capture severity of illness and risk of mortality. Include clinical findings that support your diagnosis. MTDD
--- NOTE | 2017-10-14 13:23 | MISC ---
MISCELLANOUS REPORT Sepsis was ruled out. MMODL / IJN: [id number] /
--- NOTE | 2017-10-17 11:36 | CDI ---
Documentation Clarification Form Date: 10/17/2017 1:01:00 PM From: Rima Arriaga Phone: If questions, [phone] Admit Date: 10/05/2017 4:00:00 PM Patient Name: Jesusita Galloway Visit Number: [id number] Discharge Date: 10/10/17 ATTENTION: The Clinical Documentation Specialists (CDI) and [facility] Coding Staff appreciate your assistance in clarifying documentation. Please respond to the clarification below the line at the bottom and electronically sign. The CDI & [facility] Coding staff will review the response and follow-up if needed. Please note: Queries are made part of the Legal Health Record. If you have any questions, please contact the author of this message via ITS. Dr. Kevin Metzger Renal failure is documented in the H&P, 10/06 PN, 10/07 PN, 10/08 PN, 10/09 PN and also in D Summary as Mild renal failure.. History/Risk Factors: met ovarian cancer, HTN Curent BUN: 23, 18, 9, 7 Current Cr: 1.08, 1.10, 1.03, .81, .85 Current GFR : 55, 53, 58, 78, 73 Treatment: IV fluids In order to capture the severity of condition, please clarify if the condition signifies: * Acute kidney injury * Acute on chronic renal failure * Chronic renal failure/Chronic Kidney disease (CKD). Please stage if known: CKD Stage 1 GFR >90 CKD Stage 2 GFR 60-89 CKD Stage 3 GFR 30-59 CKD Stage 4 GFR 15-29 CKD Stage 5 GFR <15 Other, please specify Unable to determine MTDD
--- NOTE | 2017-10-19 18:26 | MISC ---
MISCELLANOUS REPORT QUERY: Stage II kidney failure, acute on chronic. MMODL / IJN: [id number] /
== END 2017-10-10 15:15 | disposition home or self-care (01) | DRG 843 ==
LOC: EC 10:24 → 5MS5E 16:00 → 5ONC 10-09 14:06
PROVIDERS: ADMIT Family Medicine; ATTEND Family Medicine
DX: C79.9 Secondary malignant neoplasm of unspecified site (principal); J18.9 Pneumonia, unspecified organism; N13.6 Pyonephrosis; N17.9 Acute kidney failure, unspecified; K59.00 Constipation, unspecified; R19.7 Diarrhea, unspecified; F41.9 Anxiety disorder, unspecified; I16.0 Hypertensive urgency; F32.9 Major depressive disorder, single episode, unspecified; E86.0 Dehydration; K21.9 Gastro-esophageal reflux disease without esophagitis; N18.2 Chronic kidney disease, stage 2 (mild); K76.0 Fatty (change of) liver, not elsewhere classified; Z79.01 Long term (current) use of anticoagulants; Z79.899 Other long term (current) drug therapy; Z90.49 Acquired absence of other specified parts of digestive tract; Z90.710 Acquired absence of both cervix and uterus; Z85.43 Personal history of malignant neoplasm of ovary; Z92.21 Personal history of antineoplastic chemotherapy; Z90.722 Acquired absence of ovaries, bilateral; Z88.5 Allergy status to narcotic agent; Z88.0 Allergy status to penicillin; Z88.8 Allergy status to other drugs, medicaments and biological substances; Z80.1 Family history of malignant neoplasm of trachea, bronchus and lung; Z82.0 Family history of epilepsy and other diseases of the nervous system; Z82.3 Family history of stroke; Z83.3 Family history of diabetes mellitus; Z84.1 Family history of disorders of kidney and ureter
CPT/HCPCS: 36415; 71046; 74018; 74177; 80048; 80053; 80202; 81001; 82150; 82565; 83605; 83690; 84484; 85025; 87040; 87086; 87324; 93005; 94760; 96361; 96374; 96375; 99285

== ENCOUNTER 2017-10-16 23:51 | Inpatient (IN) | payer BC ==
[2017-10-17] MEDS ORDERED: KETOROLAC 30 MG/ML 1 ML VIAL IVP STA (00:55)
[2017-10-17] MEDS ORDERED: SODIUM CHLORIDE 0.9% 1,000 ML IV STA ×2 (00:55)
[2017-10-17] MEDS ORDERED: MORPHINE SULFATE 2 MG/ML SYRINGE IV STA (00:55)
[2017-10-17] MEDS ORDERED: FAMOTIDINE 20 MG/2 ML VIAL IV STA (01:20)
[2017-10-17] MEDS ORDERED: methylPREDNISolone SOD SUCCI 125 MG/2 ML VIAL IV STA (01:20)
[2017-10-17] MEDS ORDERED: diphenhydrAMINE 50 MG/ML 1 ML VIAL IVP STA (01:20)
[2017-10-17] MEDS ORDERED: ACETAMINOPHEN TAB 500 MG TAB PO STA (01:35)
[2017-10-17] MEDS ORDERED: ONDANSETRON 4 MG/2 ML VIAL IVP STA (01:35)
[2017-10-17 01:48] LABS: Anisocytosis Slight; Basophils % (A) 0 %; Eosinophils % (A) 0 %; HCT 33.7 % (34.0-46.0); Lymphocytes % (A) 9 %; MCH 27.2 pg (25.0-35.0); MCHC 32.7 g/dL (31.0-37.0); MCV 83.1 fL (80.0-100.0); Mean Platelet Volume 8.8; Monocytes # (A) 0.7 k/uL (0-1.0); Monocytes % (A) 7 %; Neutrophils # (A) 8.6 k/uL (1.3-7.7); Neutrophils % (A) 82 %; Platelet Count 154 k/uL (150-450); RBC 4.05 m/uL (3.80-5.40); WBC 10.5 k/uL (3.8-10.6)
[2017-10-17 01:49] LABS: Albumin 3.1 g/dL (3.5-5.0); Calcium 8.3 mg/dL (8.4-10.2); Potassium 3.2 mmol/L (3.5-5.1); Total Bilirubin 0.6 mg/dL (0.2-1.3); Total Protein 5.6 g/dL (6.3-8.2)
[2017-10-17 02:00] LABS: INR 1.3 (<1.2); Partial Thromboplastin Time 37.1 sec (22.0-30.0)
[2017-10-17 02:02] LABS: Appearance,Urine Cloudy (Clear); Bacteria,Urine Many /hpf; Bilirubin,Urine Negative (Negative); Blood,Urine Moderate (Negative); Color,Urine Light Yellow; Glucose,Urine (UA) Negative (Negative); Hyaline Casts,Urine 8 /lpf (0-2); Ketones,Urine Negative (Negative); Leukocyte Esterase,Urine Moderate (Negative); Mucus,Urine Rare /hpf; Nitrite,Urine Negative (Negative); Protein,Urine 3+ (Negative); RBC,Urine 11 /hpf (0-5); Specific Gravity,Urine 1.009 (1.001-1.035); Squamous Epithelial Cell,Urine <1 /hpf (0-4); Urobilinogen,Urine <2.0 mg/dL (<2.0); WBC,Urine 100 /hpf (0-5)
[2017-10-17 02:18] LABS: D-Dimer 0.81 mg/L FEU (<0.60)
[2017-10-17] MEDS ORDERED: LEVOFLOXACIN 750MG-D5W PMX 750 MG in DEXTROSE/WATER 1 150ML.BAG IVPB STA (02:20)
--- NOTE | 2017-10-17 03:19 | CT ---
EXAM: CT Abdomen and Pelvis Without Intravenous Contrast CLINICAL HISTORY: ITS.REASON CT Reason: Pain TECHNIQUE: Axial computed tomography images of the abdomen and pelvis without intravenous contrast. DLP is 621 mGy-cm. This CT exam was performed using one or more of the following dose reduction techniques: automated exposure control, adjustment of the mA and/or kV according to patient size, and/or use of iterative reconstruction technique. COMPARISON: 10/05/17 FINDINGS: Evaluation of viscera is limited without contrast. Small right greater than left pleural effusions. Small hiatal hernia. Suspected atelectasis. Improving lung opacities compared to prior though pleural effusions new. Again noted is a right pelvic mass. Bowel extends into the region of this mass and is difficult to differentiate from the mass but the appearance is similar to the previous. There is bilateral hydronephrosis and hydroureter without urinary tract calculi seen. Findings present on previous, as well. Right hydronephrosis appears more prominent. Small amount of free fluid.. Body wall edema. Free fluid include layering over the right retroperitoneum. Correlate with enzymes to evaluate for any evidence of acute pancreatitis. There are dilated fluid-filled segments of small bowel. Partial obstructive process not excluded. Could also represent ileus/enteritis. Bowel distention was seen on the previous, as well. Portions of the colon underdistended limiting evaluation for wall thickening. Diverticulosis. Difficult to exclude diverticulitis or colitis given degree of colonic distention and generalized edema/small amount free fluid. Correlate clinically. Postop changes and other unchanged findings again noted. IMPRESSION: Small amount of free fluid include layering over retroperitoneum. Correlate for any evidence of acute pancreatitis. Right pelvic mass with right greater than left hydronephrosis and hydroureter. More prominent right hydronephrosis compared to previous. Dilated small bowel. May represent ileus/enteritis. Partial obstructive process not excluded. Diverticulosis. Underdistention and edema/small amount of free fluid limit evaluation for inflammatory change. Correlate clinically for any evidence of diverticulitis or colitis. Pleural effusions and other findings, as above.
[2017-10-17] MEDS ORDERED: metroNIDAZOLE-NS PMX 500 MG in SALINE 1 100ML.BAG IVPB STA (03:51)
[2017-10-17] MEDS ORDERED: SODIUM CHLORIDE 0.9% 1,000 ML IV ONE (03:54)
[2017-10-17] MEDS ORDERED: MORPHINE SULFATE 2 MG/ML SYRINGE IVP STA (03:54)
[2017-10-17] MEDS ORDERED: IBUPROFEN 400 MG TAB PO PRN (03:55)
[2017-10-17] MEDS ORDERED: NALOXONE 0.4 MG/ML 1 ML VIAL IV PRN (03:55)
[2017-10-17] MEDS ORDERED: MORPHINE SULFATE 2 MG/ML SYRINGE IV PRN (03:55)
--- NOTE | 2017-10-17 03:55 | ED ---
Abdominal Pain HPI - General Chief Complaint: Abdominal Pain Stated Complaint: Abdominal Pain Time Seen by Provider: 10/17/17 00:47 Source: patient, RN notes reviewed, old records reviewed Mode of arrival: wheelchair Limitations: no limitations - History of Present Illness Initial Comments: This Patient is a 62-year-old female with a recent history of bowel obstruction and urinary tract infection presents emergency Department chief complaint of fever and lower abdominal pain. Patient has a history of ovarian cancer. She does have a port. Patient reports that she was discharged and followed up with her oncologist earlier in the week. They started her on MiraLAX and medication upper a bowel movement. She did have a bowel movement yesterday. She states that she has not had anyone had a bowel movement today or passed gas. She states that she does have some burning with urination. She also complains of occasional shortness of breath with chest pain. At this time Patient reports she's had multiple episodes of vomiting. - Related Data Home Medications Medication Instructions Recorded Confirmed ALPRAZolam [Xanax] 0.25 mg PO TID PRN 08/25/14 10/05/17 Diltiazem HCl [Diltiazem 24Hr ER] 120 mg PO DAILY 08/25/14 10/05/17 Escitalopram [Lexapro] 20 mg PO DAILY 08/25/14 10/05/17 HYDROcodone/APAP 10-325MG [[place] 1 tab PO QID PRN 08/25/14 10/05/17 10-325] Rivaroxaban [Xarelto] 20 mg PO DAILY 10/14/14 10/05/17 Carvedilol 6.25 mg PO BID 10/05/15 10/05/17 Lisinopril 5 mg PO DAILY 10/05/15 10/05/17 Nitroglycerin Sl Tabs [Nitrostat] 0.4 mg PO Q5M PRN 10/05/15 10/05/17 Ondansetron HCl [Zofran] 8 mg PO BID PRN 10/05/15 10/05/17 Zolpidem [Ambien] 10 mg PO HS PRN 08/04/16 10/05/17 Polyethylene Glycol 3350 [Miralax] 17 gm PO DAILY 10/05/17 10/05/17 diphenhydrAMINE HCL [Benadryl] 25 mg PO HS 10/05/17 10/05/17 Previous Rx's Medication Instructions Recorded Gabapentin [Neurontin] 300 mg PO TID #90 cap 08/28/14 Nitroglycerin Extended Release 2.5 mg PO BID capsule.er 08/28/14 [Nitro-Bid] Allergies Allergy/AdvReac Type Severity Reaction Status Date / Time adhesive Allergy Rash/Hives Verified 10/17/17 00:05 codeine Allergy Itching Verified 10/17/17 00:05 iodine Allergy Itching Verified 10/17/17 00:05 Penicillins Allergy Itching Verified 10/17/17 00:05 CHEMO DRUG Allergy Unknown Uncoded 10/17/17 00:05 Review of Systems ROS Statement: Those systems with pertinent positive or pertinent negative responses have been documented in the HPI. ROS Other: All systems not noted in ROS Statement are negative. Past Medical History Past Medical History: Cancer, Deep Vein Thrombosis (DVT), GERD/Reflux Additional Past Medical History / Comment(s): tmj, OVARIAN CANCER History of Any Multi-Drug Resistant Organisms: None Reported Past Surgical History: Adenoidectomy, Appendectomy, Cholecystectomy, Heart Catheterization With Stent, Hysterectomy, Tonsillectomy Additional Past Surgical History / Comment(s): ovarian cancer with bilateral oopherectomy 2005; 2 open exploratory abdominal surgery, mediport placed 2011 Past Anesthesia/Blood Transfusion Reactions: No Reported Reaction Date of Last Stent Placement:: 2011 Past Psychological History: Anxiety, Depression Smoking Status: Never smoker Past Alcohol Use History: None Reported Past Drug Use History: None Reported - Past Family History Mother Family Medical History: Diabetes Mellitus, Dialysis Brother(s) Family Medical History: Cancer Additional Family Medical History / Comment(s): lung cancer- since passed Sister(s) Family Medical History: CVA/TIA Father Family Medical History: Neurologic Disorder Additional Family Medical History / Comment(s): alzheimers General Exam - General Exam Comments Initial Comments: 62-year-old female. Patient appears in moderate discomfort and distress. Limitations: no limitations General appearance: alert, in no apparent distress Head exam: Present: atraumatic, normocephalic, normal inspection Eye exam: Present: normal appearance, PERRL, EOMI. Absent: scleral icterus, conjunctival injection, periorbital swelling ENT exam: Present: normal exam, mucous membranes moist Neck exam: Present: normal inspection. Absent: tenderness, meningismus, lymphadenopathy Respiratory exam: Present: normal lung sounds bilaterally. Absent: respiratory distress, wheezes, rales, rhonchi, stridor Cardiovascular Exam: Present: regular rate, normal rhythm, normal heart sounds. Absent: systolic murmur, diastolic murmur, rubs, gallop, clicks GI/Abdominal exam: Present: soft, distended ( is distended abdomen and significant tenderness.), tenderness, normal bowel sounds. Absent: guarding, rebound, rigid Extremities exam: Present: normal inspection, full ROM, normal capillary refill. Absent: tenderness, pedal edema, joint swelling, calf tenderness Back exam: Present: normal inspection Neurological exam: Present: alert, oriented X3, CN II-XII intact Psychiatric exam: Present: normal affect, normal mood Skin exam: Present: warm, dry, intact, normal color. Absent: rash Course Vital Signs 10/17/17 10/17/17 10/17/17 00:00 02:40 03:00 Temperature 101.8 F H 98.8 F Pulse Rate 100 78 80 Respiratory 19 16 16 Rate Blood Pressure 193/103 175/79 149/95 O2 Sat by Pulse 93 L 95 95 Oximetry Medical Decision Making - Medical Decision Making This Patient is 62-year-old female chief complaint of abdominal pain, nausea vomiting and fevers. This time patient's labwork was reviewed evidence of urinary tract infection. Started on Levaquin. Does meet sepsis protocol. 2 L bolus initiated. Lactic acid was within normal limits. White blood cell count was within normal limits. However Patient did have a dramatic decrease in her kidney function. CT abdomen and pelvis could not be completed with contrast. She also did complain of some chest pain and shortness of breath. Concern for possibility of PE with mildly elevated d-dimer. However Patient is on xarelto also making this less likely. Patient CT abdomen and pelvis was performed without contrast. Evidence of a right pelvic mass with compression of the day ureter resulting and hydroureter. This is worse than previous computed tomography scan 1 week ago. Also evidence of ileus or partial small bowel obstruction. She has no active vomiting at this time. We'll not put the Patient under for NG tube at this time. She was also on IV Flagyl for possibility of diverticulitis or colitis. Patient will be admitted to Dr. Metzger. Started on IV hydration and pain management. - Lab Data Result diagrams: 10/17/17 01:09 10/17/17 01:09 Lab Results 10/17/17 10/17/17 10/17/17 Range/Units 01:09 01:09 01:09 WBC (3.8-10.6) k/uL RBC (3.80-5.40) m/uL Hgb (11.4-16.0) gm/dL Hct (34.0-46.0) % MCV (80.0-100.0) fL MCH (25.0-35.0) pg MCHC (31.0-37.0) g/dL RDW (11.5-15.5) % Plt Count (150-450) k/uL Neutrophils % % Lymphocytes % % Monocytes % % Eosinophils % % Basophils % % Neutrophils # (1.3-7.7) k/uL Lymphocytes # (1.0-4.8) k/uL Monocytes # (0-1.0) k/uL Eosinophils # (0-0.7) k/uL Basophils # (0-0.2) k/uL Anisocytosis PT 12.0 (9.0-12.0) sec INR 1.3 H (<1.2) APTT 37.1 H (22.0-30.0) sec D-Dimer 0.81 H (<0.60) mg/L FEU Sodium 140 (137-145) mmol/L Potassium 3.2 L (3.5-5.1) mmol/L Chloride 100 (98-107) mmol/L Carbon Dioxide 29 (22-30) mmol/L Anion Gap 11 mmol/L BUN 13 (7-17) mg/dL Creatinine 1.80 H (0.52-1.04) mg/dL Est GFR (CKD-EPI)AfAm 34 (>60 ml/min/1.73 sqM) Est GFR (CKD-EPI)NonAf 29 (>60 ml/min/1.73 sqM) Glucose 112 H (74-99) mg/dL Plasma Lactic Acid Chad 0.9 (0.7-2.0) mmol/L Calcium 8.3 L (8.4-10.2) mg/dL Total Bilirubin 0.6 (0.2-1.3) mg/dL AST 46 H (14-36) U/L ALT 28 (9-52) U/L Alkaline Phosphatase 70 (38-126) U/L Troponin I (0.000-0.034) ng/mL Total Protein 5.6 L (6.3-8.2) g/dL Albumin 3.1 L (3.5-5.0) g/dL Amylase 38 (30-110) U/L Lipase 94 (23-300) U/L Urine Color Urine Appearance (Clear) Urine pH (5.0-8.0) Ur Specific Windfall (1.001-1.035) Urine Protein (Negative) Urine Glucose (UA) (Negative) Urine Ketones (Negative) Urine Blood (Negative) Urine Nitrite (Negative) Urine Bilirubin (Negative) Urine Urobilinogen (<2.0) mg/dL Ur Leukocyte Esterase (Negative) Urine RBC (0-5) /hpf Urine WBC (0-5) /hpf Ur Squamous Epith Cells (0-4) /hpf Urine Bacteria (None) /hpf Hyaline Casts (0-2) /lpf Urine Mucus (None) /hpf 10/17/17 10/17/17 10/17/17 Range/Units 01:09 01:09 01:09 WBC 10.5 (3.8-10.6) k/uL RBC 4.05 (3.80-5.40) m/uL Hgb 11.0 L (11.4-16.0) gm/dL Hct 33.7 L (34.0-46.0) % MCV 83.1 (80.0-100.0) fL MCH 27.2 (25.0-35.0) pg MCHC 32.7 (31.0-37.0) g/dL RDW 16.0 H (11.5-15.5) % Plt Count 154 (150-450) k/uL Neutrophils % 82 % Lymphocytes % 9 % Monocytes % 7 % Eosinophils % 0 % Basophils % 0 % Neutrophils # 8.6 H (1.3-7.7) k/uL Lymphocytes # 1.0 (1.0-4.8) k/uL Monocytes # 0.7 (0-1.0) k/uL Eosinophils # 0.0 (0-0.7) k/uL Basophils # 0.0 (0-0.2) k/uL Anisocytosis Slight PT (9.0-12.0) sec INR (<1.2) APTT (22.0-30.0) sec D-Dimer (<0.60) mg/L FEU Sodium (137-145) mmol/L Potassium (3.5-5.1) mmol/L Chloride (98-107) mmol/L Carbon Dioxide (22-30) mmol/L Anion Gap mmol/L BUN (7-17) mg/dL Creatinine (0.52-1.04) mg/dL Est GFR (CKD-EPI)AfAm (>60 ml/min/1.73 sqM) Est GFR (CKD-EPI)NonAf (>60 ml/min/1.73 sqM) Glucose (74-99) mg/dL Plasma Lactic Acid Chad (0.7-2.0) mmol/L Calcium (8.4-10.2) mg/dL Total Bilirubin (0.2-1.3) mg/dL AST (14-36) U/L ALT (9-52) U/L Alkaline Phosphatase (38-126) U/L Troponin I 0.022 (0.000-0.034) ng/mL Total Protein (6.3-8.2) g/dL Albumin (3.5-5.0) g/dL Amylase (30-110) U/L Lipase (23-300) U/L Urine Color Light Yellow Urine Appearance Cloudy H (Clear) Urine pH 7.0 (5.0-8.0) Ur Specific [place] 1.009 (1.001-1.035) Urine Protein 3+ H (Negative) Urine Glucose (UA) Negative (Negative) Urine Ketones Negative (Negative) Urine Blood Moderate H (Negative) Urine Nitrite Negative (Negative) Urine Bilirubin Negative (Negative) Urine Urobilinogen <2.0 (<2.0) mg/dL Ur Leukocyte Esterase Moderate H (Negative) Urine RBC 11 H (0-5) /hpf Urine WBC 100 H (0-5) /hpf Ur Squamous Epith Cells <1 (0-4) /hpf Urine Bacteria Many H (None) /hpf Hyaline Casts 8 H (0-2) /lpf Urine Mucus Rare H (None) /hpf 10/17/17 04:15 EKG performed at 1:52 AM shows normal sinus rhythm normal EKG. Ventricular rate of 82 bpm. He rambles 118. QRS duration 90. QTQTC sutures and 4/454. - Radiology Data Radiology results: report reviewed CT abdomen and pelvis shows small amount of free fluid layering of the retroperitoneum. Correlate for evidence of acute pancreatitis. Right pelvic mass with right greater than left hydronephrosis and hydroureter. More prominent right hydronephrosis. Previous. As dilated small bowel which may represent ileus or enteritis. Obstructive partial instructed process is not excluded. Diverticulosis. No distention and edema, free fluid limited evaluation for inflammatory change. Correlate for diverticulitis or colitis. There is also pleural effusions noted. Disposition Clinical Impression: MERON (acute kidney injury), UTI (urinary tract infection), Sepsis, Ileus, Pelvic mass, Elevated d-dimer Disposition: ADMITTED IP TO THIS HOSP Condition: Stable Is patient prescribed a controlled substance at d/c from ED?: No Referrals: Kevin Metzger MD [Primary Care Provider] - 1-2 days Time of Disposition: 03:55
[2017-10-17] MEDS: ONDANSETRON 4 MG/2 ML VIAL IVP PRN ×3 (06:06→18:30)
[2017-10-17 06:30] VITALS: BMI 31.3
[2017-10-17] MEDS: metroNIDAZOLE-NS PMX 500 MG in SALINE 1 100ML.BAG IVPB SCH ×3 (07:49→22:14)
[2017-10-17] MEDS: PANTOPRAZOLE 40 MG/10 ML VIAL IV SCH (07:49)
[2017-10-17] MEDS ORDERED: NON-FORMULARY DRUG (Ondansetron Hcl [Zofran] 8 MG) PO PRN (11:10)
[2017-10-17] MEDS ORDERED: GABAPENTIN 300 MG CAP PO PRN (11:10)
[2017-10-17] MEDS ORDERED: NITROGLYCERIN SL TABS 0.4 MG TAB SUBLINGUAL PRN (11:10)
[2017-10-17] MEDS: KETOROLAC 30 MG/ML 1 ML VIAL IVP PRN ×2 (11:42→18:22)
[2017-10-17] MEDS: DILTIAZEM CD 120 MG CAP.ER.24H PO SCH (15:41)
[2017-10-17] MEDS: LORazepam 2 MG/ML INJ IV PRN (15:54)
--- NOTE | 2017-10-17 18:15 | HP ---
HISTORY AND PHYSICAL CHIEF COMPLAINT: Acute abdominal pain and distention. HISTORY OF PRESENT ILLNESS: This is another recent admission for this 62-year-old white female who was just in the hospital recently for lower abdominal pain, urinary tract infection and hydronephrosis. She has an enlarging mass in the pelvis which is felt to be recurrent ovarian carcinoma. She is getting her chemotherapy in the [place] area. She is scheduled to start chemotherapy again on November 03. Pain was quite severe and she came back into the emergency room, where it was felt she had a urinary tract infection, hydronephrosis, worse on the right than on the left, and a possible early bowel obstruction. She has not had any hematemesis, melena, hematochezia, etc. The remainder of her history is unremarkable and unchanged. ALLERGIES: 1. CARBOPLATIN. 2. CLINDAMYCIN. 3. . 4. IODINE. 5. PENICILLIN. 6. CODEINE. MEDICATIONS: She has been on: 1. Ambien. 2. Vitamin D. 3. Gabapentin. 4. Xarelto. 5. Nitrostat. 6. Diltiazem. 7. Lexapro. 8. Vicodin. 9. Nexium. 10.Xanax. The remainder of her history is unremarkable and unchanged. PHYSICAL EXAMINATION: Blood pressure 123/80 with a pulse of 104, respirations of 32, and she is afebrile. In general she appeared to be pale and chronically ill. She was also in a great deal of pain. Head, ears, eyes, nose, mouth and throat were normal. Neck veins were not distended. Thyroid not enlarged. Chest was clear. Cardiac exam was normal. The abdomen demonstrated the lower abdomen to be distended and quite tender throughout. Bowel sounds were not heard. Extremities were normal. Neurologically she was intact. IMPRESSION: 1. Lower abdominal pain. 2. Carcinoma of the ovary. 3. Hydronephrosis. 4. Possible early small bowel obstruction. PLAN: 1. Bed rest. 2. IV fluids. 3. Clear liquids. 4. Analgesia. 5. Consult with Neurology, General Surgery and Oncology. MMODL / IJN: [id number] /
[2017-10-17] MEDS: NITROGLYCERIN EXTENDED RELEASE 2.5 MG CAPSULE.ER PO SCH (20:14)
[2017-10-17] MEDS: diphenhydrAMINE 25 MG CAP PO SCH (20:14)
--- NOTE | 2017-10-17 21:27 | P.GSCN ---
History of Present Illness Consult date: 10/17/17 Reason for Consult: Hydronephrosis, UTI Requesting physician: Kevin Metzger History of present illness: The patient is a 62-year-old white female with ovarian cancer, which has been treated over 10 years. She has a known right pelvic mass. Her oncologist is Dr. Aris Hurtado at [facility] [place]. He has discussed stent placement with her in the past. Her serum creatinine level is 1.80, up from 0.85 one week ago. Urinalysis is suggestive of a UTI. A urine culture is pending. She denies any prior history of urolithiasis. She was treated for a UTI in the remote past. She denies flank pain. Review of Systems - Constitutional Reports fever - Gastrointestinal Reports constipation, Reports nausea, Reports vomiting - Genitourinary Genitourinary: Denies dysuria, Denies hematuria Past Medical History Past Medical History: Cancer, Deep Vein Thrombosis (DVT), GERD/Reflux Additional Past Medical History / Comment(s): tmj, OVARIAN CANCER, urinary intractions, partial bowel obstruction History of Any Multi-Drug Resistant Organisms: None Reported Past Surgical History: Adenoidectomy, Appendectomy, Cholecystectomy, Heart Catheterization With Stent, Hysterectomy, Tonsillectomy Additional Past Surgical History / Comment(s): ovarian cancer with bilateral oopherectomy 2005; 2 open exploratory abdominal surgery, mediport placed 2011 Past Anesthesia/Blood Transfusion Reactions: No Reported Reaction Date of Last Stent Placement:: 2011 Past Psychological History: Anxiety, Depression Smoking Status: Never smoker Past Alcohol Use History: None Reported Additional Past Alcohol Use History / Comment(s): Patient is been a lifelong nonsmoker. She lives at home with her friend and a dog. Past Drug Use History: None Reported - Past Family History Mother Family Medical History: Diabetes Mellitus, Dialysis Brother(s) Family Medical History: Cancer Additional Family Medical History / Comment(s): lung cancer- since passed Sister(s) Family Medical History: CVA/TIA Father Family Medical History: Neurologic Disorder Additional Family Medical History / Comment(s): alzheimers Medications and Allergies Home Medications Medication Instructions Recorded Confirmed Type ALPRAZolam [Xanax] 0.25 mg PO TID PRN 08/25/14 10/17/17 History Diltiazem HCl [Diltiazem 24Hr ER] 120 mg PO DAILY 08/25/14 10/17/17 History Escitalopram [Lexapro] 20 mg PO DAILY 08/25/14 10/17/17 History HYDROcodone/APAP 10-325MG [[place] 1 tab PO QID PRN 08/25/14 10/17/17 History 10-325] Nitroglycerin Extended Release 2.5 mg PO BID capsule.er 08/28/14 10/17/17 Rx [Nitro-Bid] Rivaroxaban [Xarelto] 20 mg PO DAILY 10/14/14 10/17/17 History Nitroglycerin Sl Tabs [Nitrostat] 0.4 mg PO Q5M PRN 10/05/15 10/17/17 History Ondansetron HCl [Zofran] 8 mg PO BID PRN 10/05/15 10/17/17 History Zolpidem [Ambien] 10 mg PO HS PRN 08/04/16 10/17/17 History Polyethylene Glycol 3350 [Miralax] 17 gm PO DAILY 10/05/17 10/17/17 History diphenhydrAMINE HCL [Benadryl] 25 mg PO HS 10/05/17 10/17/17 History Ergocalciferol (Vitamin D2) 50,000 unit PO Q30D 10/17/17 10/17/17 History [Vitamin D2] Esomeprazole Magnesium [NexIUM 20 mg PO DAILY 10/17/17 10/17/17 History 24Hr] Gabapentin [Neurontin] 300 mg PO QID PRN 10/17/17 10/17/17 History Allergies Allergy/AdvReac Type Severity Reaction Status Date / Time adhesive Allergy Rash/Hives Verified 10/17/17 08:47 carboplatin Allergy Anaphylaxis Verified 10/17/17 08:47 iodine Allergy Rash/Hives Verified 10/17/17 08:47 Penicillins Allergy Rash/Hives Verified 10/17/17 08:47 codeine AdvReac Nausea & Verified 10/17/17 08:47 Vomiting morphine AdvReac Nausea & Verified 10/17/17 08:47 Vomiting Surgical - Exam Vital Signs Temp Pulse Resp BP Pulse Ox 101.8 F H 100 19 193/103 93 L 10/17/17 00:00 10/17/17 00:00 10/17/17 00:00 10/17/17 00:00 10/17/17 00:00 - General well developed, well nourished, no distress - Respiratory normal respiratory effort - Abdomen Abdomen: soft, tender (Diffuse tenderness), no guarding, no rigid, no rebound - Psychiatric oriented to time, oriented to person, oriented to place, speech is normal, memory intact Results - Labs 10/17/17 01:09 10/17/17 01:09 Abnormal Lab Results - Last 24 Hours (Table) 10/17/17 10/17/17 10/17/17 Range/Units 01:09 01:09 01:09 Hgb 11.0 L (11.4-16.0) gm/dL Hct 33.7 L (34.0-46.0) % RDW 16.0 H (11.5-15.5) % Neutrophils # 8.6 H (1.3-7.7) k/uL INR 1.3 H (<1.2) APTT 37.1 H (22.0-30.0) sec D-Dimer 0.81 H (<0.60) mg/L FEU Potassium 3.2 L (3.5-5.1) mmol/L Creatinine 1.80 H (0.52-1.04) mg/dL Glucose 112 H (74-99) mg/dL Calcium 8.3 L (8.4-10.2) mg/dL AST 46 H (14-36) U/L Total Protein 5.6 L (6.3-8.2) g/dL Albumin 3.1 L (3.5-5.0) g/dL Urine Appearance (Clear) Urine Protein (Negative) Urine Blood (Negative) Ur Leukocyte Esterase (Negative) Urine RBC (0-5) /hpf Urine WBC (0-5) /hpf Urine Bacteria (None) /hpf Hyaline Casts (0-2) /lpf Urine Mucus (None) /hpf 10/17/17 Range/Units 01:09 Hgb (11.4-16.0) gm/dL Hct (34.0-46.0) % RDW (11.5-15.5) % Neutrophils # (1.3-7.7) k/uL INR (<1.2) APTT (22.0-30.0) sec D-Dimer (<0.60) mg/L FEU Potassium (3.5-5.1) mmol/L Creatinine (0.52-1.04) mg/dL Glucose (74-99) mg/dL Calcium (8.4-10.2) mg/dL AST (14-36) U/L Total Protein (6.3-8.2) g/dL Albumin (3.5-5.0) g/dL Urine Appearance Cloudy H (Clear) Urine Protein 3+ H (Negative) Urine Blood Moderate H (Negative) Ur Leukocyte Esterase Moderate H (Negative) Urine RBC 11 H (0-5) /hpf Urine WBC 100 H (0-5) /hpf Urine Bacteria Many H (None) /hpf Hyaline Casts 8 H (0-2) /lpf Urine Mucus Rare H (None) /hpf Diabetes panel 10/17/17 Range/Units 01:09 Sodium 140 (137-145) mmol/L Potassium 3.2 L (3.5-5.1) mmol/L Chloride 100 (98-107) mmol/L Carbon Dioxide 29 (22-30) mmol/L BUN 13 (7-17) mg/dL Creatinine 1.80 H (0.52-1.04) mg/dL Glucose 112 H (74-99) mg/dL Calcium 8.3 L (8.4-10.2) mg/dL AST 46 H (14-36) U/L ALT 28 (9-52) U/L Alkaline Phosphatase 70 (38-126) U/L Total Protein 5.6 L (6.3-8.2) g/dL Albumin 3.1 L (3.5-5.0) g/dL Calcium panel 10/17/17 Range/Units 01:09 Calcium 8.3 L (8.4-10.2) mg/dL Albumin 3.1 L (3.5-5.0) g/dL Pituitary panel 10/17/17 Range/Units 01:09 Sodium 140 (137-145) mmol/L Potassium 3.2 L (3.5-5.1) mmol/L Chloride 100 (98-107) mmol/L Carbon Dioxide 29 (22-30) mmol/L BUN 13 (7-17) mg/dL Creatinine 1.80 H (0.52-1.04) mg/dL Glucose 112 H (74-99) mg/dL Calcium 8.3 L (8.4-10.2) mg/dL Adrenal panel 10/17/17 Range/Units 01:09 Sodium 140 (137-145) mmol/L Potassium 3.2 L (3.5-5.1) mmol/L Chloride 100 (98-107) mmol/L Carbon Dioxide 29 (22-30) mmol/L BUN 13 (7-17) mg/dL Creatinine 1.80 H (0.52-1.04) mg/dL Glucose 112 H (74-99) mg/dL Calcium 8.3 L (8.4-10.2) mg/dL Total Bilirubin 0.6 (0.2-1.3) mg/dL AST 46 H (14-36) U/L ALT 28 (9-52) U/L Alkaline Phosphatase 70 (38-126) U/L Total Protein 5.6 L (6.3-8.2) g/dL Albumin 3.1 L (3.5-5.0) g/dL - Imaging CT scan - abdomen: report reviewed, image reviewed Assessment and Plan (1) Hydronephrosis Current Visit: Yes Status: Acute Code(s): N13.30 - UNSPECIFIED HYDRONEPHROSIS SNOMED Code(s): 28716715 (2) UTI (urinary tract infection) Current Visit: Yes Status: Acute Code(s): N39.0 - URINARY TRACT INFECTION, SITE NOT SPECIFIED SNOMED Code(s): 12838847 Plan: In summary, the patient is a 62-year-old woman with ovarian cancer, which has been treated over 10 years. She has a known right pelvic mass. Her oncologist is Dr. Aris Hurtado at [facility] [place]. He has discussed stent placement with her in the past. Her serum creatinine level is 1.80, up from 0.851 week ago. Urinalysis is suggestive of a UTI. A urine culture was pending. She may benefit from stent placement, particularly on the right side. I intend to speak with Dr. Hurtado regarding this, and a repeat creatinine level will be obtained tomorrow. I would suggest she continue to receive antibiotics pending the final urine culture result. Time with Patient: Greater than 30
--- NOTE | 2017-10-17 22:05 | P.CONS ---
History of Present Illness - Reason for Consult Consult date: 10/17/17 Ovarian Cancer Requesting physician: Kevin Metzger - Chief Complaint Nausea, Bowel Obstruction - History of Present Illness Mrs. Galloway is 62-year-old female patient who has a known past history of ovarian cancer. She has been on maintenance chemotherapy/anti-angiogenesis and under the treatment of Dr. Bryant Trinidad, [place]. Her treatment was held secondary to increased protein in urine (likely from Avastin treatments). She was recently admitted with abdominal pain and constipation with cramping pain. Approximately 3 weeks ago she was evaluated at [facility] and a CT scan was completed. No fevers, chills or abdominal pain at that time. She has had nausea, vomiting and diarrhea. She complained of some dysuria. Her fever was 101.8 on admission, Mild elevation in white count 10.7. CT scan of the abdomen and pelvis revealed a soft tissue mass in the right hemipelvis of a recurrent or residual neoplasm. Bilateral Sharon right greater than left possible early small bowel obstruction secondary to mass. Mild hepatic steatosis. Chest x-ray showed new right middle lobe pneumonia. She was initiated on antibiotics, currently on meropenem and vancomycin. She was discharged and followed up with Dr. Hurtado for further Oncology Care, She has been scheduled to restart treatment on November 03, with Dr. Hurtado although her pain progressed and became too severe she represented back to the emergency department for further evaluation. CT scan was repeated and redemonstrated known hemipelvic mass, hydronephrosis and concern for partial obstruction. Potential pancreatitis was also identified. Mrs. Galloway underwent a surgical evaluation today. Her renal function has worsened since recent admission, creat 1.8. Evidence of potential UTI. Patient is still experiecing continued pain since admission and is very frustrated with her repeated hospitalizations (three different hospital evaluations in the past month). Review of Systems A 14 point review of systems assessed and completed and all negative except HPI Past Medical History Past Medical History: Cancer, Deep Vein Thrombosis (DVT), GERD/Reflux Additional Past Medical History / Comment(s): tmj, OVARIAN CANCER, urinary intractions, partial bowel obstruction History of Any Multi-Drug Resistant Organisms: None Reported Past Surgical History: Adenoidectomy, Appendectomy, Cholecystectomy, Heart Catheterization With Stent, Hysterectomy, Tonsillectomy Additional Past Surgical History / Comment(s): ovarian cancer with bilateral oopherectomy 2005; 2 open exploratory abdominal surgery, mediport placed 2011 Past Anesthesia/Blood Transfusion Reactions: No Reported Reaction Date of Last Stent Placement:: 2011 Past Psychological History: Anxiety, Depression Smoking Status: Never smoker Past Alcohol Use History: None Reported Additional Past Alcohol Use History / Comment(s): Patient is been a lifelong nonsmoker. She lives at home with her friend and a dog. Past Drug Use History: None Reported - Past Family History Mother Family Medical History: Diabetes Mellitus, Dialysis Brother(s) Family Medical History: Cancer Additional Family Medical History / Comment(s): lung cancer- since passed Sister(s) Family Medical History: CVA/TIA Father Family Medical History: Neurologic Disorder Additional Family Medical History / Comment(s): alzheimers Medications and Allergies Home Medications Medication Instructions Recorded Confirmed Type ALPRAZolam [Xanax] 0.25 mg PO TID PRN 08/25/14 10/17/17 History Diltiazem HCl [Diltiazem 24Hr ER] 120 mg PO DAILY 08/25/14 10/17/17 History Escitalopram [Lexapro] 20 mg PO DAILY 08/25/14 10/17/17 History HYDROcodone/APAP 10-325MG [[place] 1 tab PO QID PRN 08/25/14 10/17/17 History 10-325] Nitroglycerin Extended Release 2.5 mg PO BID capsule.er 08/28/14 10/17/17 Rx [Nitro-Bid] Rivaroxaban [Xarelto] 20 mg PO DAILY 10/14/14 10/17/17 History Nitroglycerin Sl Tabs [Nitrostat] 0.4 mg PO Q5M PRN 10/05/15 10/17/17 History Ondansetron HCl [Zofran] 8 mg PO BID PRN 10/05/15 10/17/17 History Zolpidem [Ambien] 10 mg PO HS PRN 08/04/16 10/17/17 History Polyethylene Glycol 3350 [Miralax] 17 gm PO DAILY 10/05/17 10/17/17 History diphenhydrAMINE HCL [Benadryl] 25 mg PO HS 10/05/17 10/17/17 History Ergocalciferol (Vitamin D2) 50,000 unit PO Q30D 10/17/17 10/17/17 History [Vitamin D2] Esomeprazole Magnesium [NexIUM 20 mg PO DAILY 10/17/17 10/17/17 History 24Hr] Gabapentin [Neurontin] 300 mg PO QID PRN 10/17/17 10/17/17 History Allergies Allergy/AdvReac Type Severity Reaction Status Date / Time adhesive Allergy Rash/Hives Verified 10/17/17 08:47 carboplatin Allergy Anaphylaxis Verified 10/17/17 08:47 iodine Allergy Rash/Hives Verified 10/17/17 08:47 Penicillins Allergy Rash/Hives Verified 10/17/17 08:47 codeine AdvReac Nausea & Verified 10/17/17 08:47 Vomiting morphine AdvReac Nausea & Verified 10/17/17 08:47 Vomiting Physical Exam Vitals: Vital Signs Temp Pulse Pulse Resp BP BP Pulse Ox 10/17/17 16:00 70 18 10/17/17 14:37 98.1 F 70 18 191/86 96 10/17/17 08:00 72 18 10/17/17 07:30 97.9 F 72 18 159/67 94 L 10/17/17 04:00 98.8 F 76 18 151/90 94 L 10/17/17 03:00 80 16 149/95 95 10/17/17 02:40 98.8 F 78 16 175/79 95 10/17/17 00:00 101.8 F H 100 19 193/103 93 L Intake and Output 10/17/17 10/17/17 10/17/17 06:59 14:59 22:59 Other: # Voids 2 2 Weight 88 kg 88 kg - Constitutional General appearance: cooperative, no acute distress - EENT Eyes: EOMI, PERRLA, dentition normal ENT: NA/AT, normal oropharynx - Neck Neck: normal ROM - Respiratory Respiratory: bilateral: CTA (No increased effort) - Cardiovascular Rhythm: regular Heart sounds: normal: S1, S2 - Gastrointestinal General gastrointestinal: distended, soft, tenderness Localized gastrointestinal: tender: diffuse - Integumentary Integumentary: pale - Neurologic Neurologic: CNII-XII intact - Musculoskeletal Musculoskeletal: generalized weakness, strength equal bilaterally - Psychiatric Psychiatric: A&O x's 3, appropriate affect, intact judgment & insight Results CBC & Chem 7: 10/17/17 01:09 10/17/17 01:09 Labs: Abnormal Lab Results - Last 24 Hours (Table) 10/17/17 10/17/17 10/17/17 Range/Units 01:09 01:09 01:09 Hgb 11.0 L (11.4-16.0) gm/dL Hct 33.7 L (34.0-46.0) % RDW 16.0 H (11.5-15.5) % Neutrophils # 8.6 H (1.3-7.7) k/uL INR 1.3 H (<1.2) APTT 37.1 H (22.0-30.0) sec D-Dimer 0.81 H (<0.60) mg/L FEU Potassium 3.2 L (3.5-5.1) mmol/L Creatinine 1.80 H (0.52-1.04) mg/dL Glucose 112 H (74-99) mg/dL Calcium 8.3 L (8.4-10.2) mg/dL AST 46 H (14-36) U/L Total Protein 5.6 L (6.3-8.2) g/dL Albumin 3.1 L (3.5-5.0) g/dL Urine Appearance (Clear) Urine Protein (Negative) Urine Blood (Negative) Ur Leukocyte Esterase (Negative) Urine RBC (0-5) /hpf Urine WBC (0-5) /hpf Urine Bacteria (None) /hpf Hyaline Casts (0-2) /lpf Urine Mucus (None) /hpf 10/17/17 Range/Units 01:09 Hgb (11.4-16.0) gm/dL Hct (34.0-46.0) % RDW (11.5-15.5) % Neutrophils # (1.3-7.7) k/uL INR (<1.2) APTT (22.0-30.0) sec D-Dimer (<0.60) mg/L FEU Potassium (3.5-5.1) mmol/L Creatinine (0.52-1.04) mg/dL Glucose (74-99) mg/dL Calcium (8.4-10.2) mg/dL AST (14-36) U/L Total Protein (6.3-8.2) g/dL Albumin (3.5-5.0) g/dL Urine Appearance Cloudy H (Clear) Urine Protein 3+ H (Negative) Urine Blood Moderate H (Negative) Ur Leukocyte Esterase Moderate H (Negative) Urine RBC 11 H (0-5) /hpf Urine WBC 100 H (0-5) /hpf Urine Bacteria Many H (None) /hpf Hyaline Casts 8 H (0-2) /lpf Urine Mucus Rare H (None) /hpf Assessment and Plan Plan: Assessment and Recomendations: 1. Ovarian Cancer - Currently under the care of Dr. Hurtado and planning outpatient treatment with Dr. Hurtado at [facility] November 03 - SHe will follow-up with him after discharge 2. Acute Renal Insufficency - Secondary to UTI and Hydronephrosis - Abx - Surgical Evaluation for possible stent placement Physician Attestation: I have completed the full history and physical of this patient and agree with above dictation by Bettye Pérez NP Dictated as a scribe
[2017-10-17] MEDS: ZOLPIDEM 10 MG TAB PO PRN (22:14)
[2017-10-18] MEDS: metroNIDAZOLE-NS PMX 500 MG in SALINE 1 100ML.BAG IVPB SCH ×4 (04:45→22:10)
[2017-10-18] MEDS: KETOROLAC 30 MG/ML 1 ML VIAL IVP PRN ×2 (04:45→19:49)
[2017-10-18] MEDS: ONDANSETRON 4 MG/2 ML VIAL IVP PRN ×2 (04:46→19:50)
[2017-10-18 07:24] LABS: Calcium 7.6 mg/dL (8.4-10.2)
[2017-10-18] MEDS: MORPHINE SULFATE 2 MG/ML SYRINGE IVP PRN (07:55)
[2017-10-18] MEDS: RIVAROXABAN 20 MG TAB PO SCH (07:57)
[2017-10-18] MEDS: PANTOPRAZOLE 40 MG/10 ML VIAL IV SCH (07:57)
[2017-10-18] MEDS: DILTIAZEM CD 120 MG CAP.ER.24H PO SCH (07:57)
[2017-10-18] MEDS: NITROGLYCERIN EXTENDED RELEASE 2.5 MG CAPSULE.ER PO SCH ×2 (07:57→20:00)
[2017-10-18] MEDS: ESCITALOPRAM 20 MG TAB PO SCH (07:57)
[2017-10-18] MEDS: POLYETHYLENE GLYCOL 3350 17 GM POWD.PACK PO SCH (07:58)
[2017-10-18] MEDS ORDERED: Potassium Replacement Protocol 1 EACH MISC MISCELLANE PRN (08:46)
[2017-10-18] MEDS ORDERED: ESOMEPRAZOLE MAGNESIUM 20 MG PO SCH (09:00)
[2017-10-18] MEDS ORDERED: DILTIAZEM CD 120 MG CAP.ER.24H PO SCH (09:00)
[2017-10-18] MEDS: POTASSIUM CHLORIDE ER 20 MEQ TAB.ER PO SCH ×2 (11:14→12:25)
--- NOTE | 2017-10-18 12:14 | P.GSCN ---
History of Present Illness Consult date: 10/18/17 Reason for Consult: Abdominal bloating History of present illness: Patient is a 62-year-old female with a history of ovarian cancer. Patient has a right-sided pelvic mass and is on maintenance chemotherapy. She presents to the hospital with complaints of abdominal pain, bloating, and cramps. She has had nausea and vomiting but none recently. Bowel movements every 2-3 days loose in nature and relatively small in volume. He is passing some flatus. Was also found to have an elevated fever of 101.8. Patient has hydronephrosis noted particularly on the right. Patient has evidence of possible UTI and is being treated accordingly. There is some fluid in the abdomen although not large in volume. CAT scan shows some mild proximal small bowel dilation although there is stool seen scattered throughout the colon. She had a recent hospitalization and was discharged on MiraLAX every morning and milk of magnesia every evening. She says this was not controlling her constipation issues. Review of Systems The patient denies any acute changes in vision or hearing, no dysphagia or odynophagia, no chest pain or shortness of breath, no dysuria or hematuria, no headache, no runny nose, no rectal bleeding or melena, no unexplained weight loss Past Medical History Past Medical History: Cancer, Deep Vein Thrombosis (DVT), GERD/Reflux Additional Past Medical History / Comment(s): tmj, OVARIAN CANCER, urinary intractions, partial bowel obstruction History of Any Multi-Drug Resistant Organisms: None Reported Past Surgical History: Adenoidectomy, Appendectomy, Cholecystectomy, Heart Catheterization With Stent, Hysterectomy, Tonsillectomy Additional Past Surgical History / Comment(s): ovarian cancer with bilateral oopherectomy 2005; 2 open exploratory abdominal surgery, mediport placed 2011 Past Anesthesia/Blood Transfusion Reactions: No Reported Reaction Date of Last Stent Placement:: 2011 Past Psychological History: Anxiety, Depression Smoking Status: Never smoker Past Alcohol Use History: None Reported Additional Past Alcohol Use History / Comment(s): Patient is been a lifelong nonsmoker. She lives at home with her friend and a dog. Past Drug Use History: None Reported - Past Family History Mother Family Medical History: Diabetes Mellitus, Dialysis Brother(s) Family Medical History: Cancer Additional Family Medical History / Comment(s): lung cancer- since passed Sister(s) Family Medical History: CVA/TIA Father Family Medical History: Neurologic Disorder Additional Family Medical History / Comment(s): alzheimers Medications and Allergies Home Medications Medication Instructions Recorded Confirmed Type ALPRAZolam [Xanax] 0.25 mg PO TID PRN 08/25/14 10/17/17 History Diltiazem HCl [Diltiazem 24Hr ER] 120 mg PO DAILY 08/25/14 10/17/17 History Escitalopram [Lexapro] 20 mg PO DAILY 08/25/14 10/17/17 History HYDROcodone/APAP 10-325MG [[place] 1 tab PO QID PRN 08/25/14 10/17/17 History 10-325] Nitroglycerin Extended Release 2.5 mg PO BID capsule.er 08/28/14 10/17/17 Rx [Nitro-Bid] Rivaroxaban [Xarelto] 20 mg PO DAILY 10/14/14 10/17/17 History Nitroglycerin Sl Tabs [Nitrostat] 0.4 mg PO Q5M PRN 10/05/15 10/17/17 History Ondansetron HCl [Zofran] 8 mg PO BID PRN 10/05/15 10/17/17 History Zolpidem [Ambien] 10 mg PO HS PRN 08/04/16 10/17/17 History Polyethylene Glycol 3350 [Miralax] 17 gm PO DAILY 10/05/17 10/17/17 History diphenhydrAMINE HCL [Benadryl] 25 mg PO HS 10/05/17 10/17/17 History Ergocalciferol (Vitamin D2) 50,000 unit PO Q30D 10/17/17 10/17/17 History [Vitamin D2] Esomeprazole Magnesium [NexIUM 20 mg PO DAILY 10/17/17 10/17/17 History 24Hr] Gabapentin [Neurontin] 300 mg PO QID PRN 10/17/17 10/17/17 History Allergies Allergy/AdvReac Type Severity Reaction Status Date / Time adhesive Allergy Rash/Hives Verified 10/17/17 08:47 carboplatin Allergy Anaphylaxis Verified 10/17/17 08:47 iodine Allergy Rash/Hives Verified 10/17/17 08:47 Penicillins Allergy Rash/Hives Verified 10/17/17 08:47 codeine AdvReac Nausea & Verified 10/17/17 08:47 Vomiting morphine AdvReac Nausea & Verified 10/17/17 08:47 Vomiting Surgical - Exam Vital Signs Temp Pulse Resp BP Pulse Ox 101.8 F H 100 19 193/103 93 L 10/17/17 00:00 10/17/17 00:00 10/17/17 00:00 10/17/17 00:00 10/17/17 00:00 Physical exam: General: Well-developed, well-nourished HEENT: Normocephalic, sclerae nonicteric Abdomen: Mild mid abdominal tenderness, no definite hernia, mild distention, no rebound or guarding Extremities: No edema Neuro: Alert and oriented Results - Labs 10/17/17 01:09 10/18/17 06:48 Abnormal Lab Results - Last 24 Hours (Table) 10/18/17 Range/Units 06:48 Potassium 3.0 L* (3.5-5.1) mmol/L Creatinine 1.72 H (0.52-1.04) mg/dL Calcium 7.6 L (8.4-10.2) mg/dL Microbiology - Last 24 Hours (Table) 10/17/17 01:09 Blood Culture - Preliminary Blood No Growth after 24 hours Diabetes panel 10/18/17 Range/Units 06:48 Sodium 142 (137-145) mmol/L Potassium 3.0 L* (3.5-5.1) mmol/L Chloride 107 (98-107) mmol/L Carbon Dioxide 23 (22-30) mmol/L BUN 14 (7-17) mg/dL Creatinine 1.72 H (0.52-1.04) mg/dL Glucose 78 (74-99) mg/dL Calcium 7.6 L (8.4-10.2) mg/dL Calcium panel 10/18/17 Range/Units 06:48 Calcium 7.6 L (8.4-10.2) mg/dL Pituitary panel 10/18/17 Range/Units 06:48 Sodium 142 (137-145) mmol/L Potassium 3.0 L* (3.5-5.1) mmol/L Chloride 107 (98-107) mmol/L Carbon Dioxide 23 (22-30) mmol/L BUN 14 (7-17) mg/dL Creatinine 1.72 H (0.52-1.04) mg/dL Glucose 78 (74-99) mg/dL Calcium 7.6 L (8.4-10.2) mg/dL Adrenal panel 10/18/17 Range/Units 06:48 Sodium 142 (137-145) mmol/L Potassium 3.0 L* (3.5-5.1) mmol/L Chloride 107 (98-107) mmol/L Carbon Dioxide 23 (22-30) mmol/L BUN 14 (7-17) mg/dL Creatinine 1.72 H (0.52-1.04) mg/dL Glucose 78 (74-99) mg/dL Calcium 7.6 L (8.4-10.2) mg/dL Assessment and Plan (1) Constipation Narrative/Plan: Patient with CAT scan findings suspicious for partial small bowel obstruction which would very likely be related to the known pelvic malignancy. Will check small bowel series at this time. Further recommendations will follow. Current Visit: No Status: Acute Code(s): K59.00 - CONSTIPATION, UNSPECIFIED SNOMED Code(s): 60208114
[2017-10-18] MEDS: HYDROcodone/APAP 10-325MG 1 EACH TAB PO PRN (12:24)
[2017-10-18] MEDS: LORazepam 2 MG/ML INJ IV PRN (17:03)
--- NOTE | 2017-10-18 17:16 | FL ---
EXAMINATION TYPE: FL small bowel follow through DATE OF EXAM: 10/18/2017 CLINICAL HISTORY: Constipation for 3 days TECHNIQUE: A single contrast small bowel follow through is performed utilizing 16 ounces of barium. A 22 seconds of fluoroscopy time was utilized with 9 images saved COMPARISON: None FINDINGS: [employer] image of the abdomen shows few prominent loops of small bowel and postoperative leblanc ges with surgical clips scattered throughout the entire abdomen and pelvis. The small bowel study shows normal transit to the colon in less than 215 minutes. There is a normal mucosal fold pattern throughout the small bowel. There is no evidence of any stricture or filling de fect noted. The terminal ileum is spotted and appears unremarkable. Mild dilatation of the small bow el up to 3.4 cm is seen. IMPRESSION: Mildly prominent loops of small bowel are present mild small bowel ileus with no evidence of obstruction.
--- NOTE | 2017-10-18 17:52 | PN ---
PROGRESS NOTE CHIEF COMPLAINT: Abdominal pain and renal failure. HISTORY OF PRESENT ILLNESS: This lady is feeling much better. Pain is under better control. It is planned that she will have ureteral stents placed on Monday. She did have a small bowel movement. She has been seen by Surgery. PHYSICAL EXAMINATION: Abdomen is much less distended and tender. Chest is clear. IMPRESSION: 1. Carcinoma of the ovary. 2. Hydronephrosis. 3. Possible early or incomplete small bowel obstruction. PLAN: Continue with current management and follow her abdominal and GI findings as well. She is waiting for stent placement in the right ureter. MMODL / IJN: [id number] /
[2017-10-18] MEDS ORDERED: MAGNESIUM CITRATE 296 ML BOTTLE PO ONE (17:57)
[2017-10-18] MEDS: diphenhydrAMINE 25 MG CAP PO SCH (20:00)
[2017-10-18] MEDS: ZOLPIDEM 10 MG TAB PO PRN (22:15)
[2017-10-19] MEDS: ACETAMINOPHEN TAB 325 MG TAB PO PRN (00:09)
[2017-10-19] MEDS: HYDROcodone/APAP 10-325MG 1 EACH TAB PO PRN ×2 (02:14→13:56)
[2017-10-19] MEDS: metroNIDAZOLE-NS PMX 500 MG in SALINE 1 100ML.BAG IVPB SCH ×4 (05:26→22:50)
[2017-10-19] MEDS: NITROGLYCERIN EXTENDED RELEASE 2.5 MG CAPSULE.ER PO SCH ×2 (08:26→19:59)
[2017-10-19] MEDS: ESCITALOPRAM 20 MG TAB PO SCH (08:26)
[2017-10-19] MEDS: PANTOPRAZOLE 40 MG/10 ML VIAL IV SCH (08:26)
[2017-10-19] MEDS: DILTIAZEM CD 120 MG CAP.ER.24H PO SCH (08:27)
[2017-10-19] MEDS: RIVAROXABAN 20 MG TAB PO SCH (08:27)
[2017-10-19] MEDS: POLYETHYLENE GLYCOL 3350 17 GM POWD.PACK PO SCH (08:27)
[2017-10-19] MEDS: cefTRIAXone IN SWFI 1,000 MG/10 ML SYRINGE IVP SCH (11:13)
[2017-10-19] MEDS: ONDANSETRON 4 MG TAB PO PRN (13:56)
[2017-10-19] MEDS: ALPRAZolam 0.25 MG TAB PO PRN (16:51)
--- NOTE | 2017-10-19 17:12 | P.PN ---
Subjective Progress Note Date: 10/19/17 Principal diagnosis: Ileus Patient continues to have some nausea and early satiety with liquids. She had 3 loose stools since yesterday afternoon small bowel series. Mild abdominal discomfort. Low-grade fever. Is scheduled for ureteral stent tomorrow. Objective - Vital Signs Vital signs: Vital Signs Temp 98 F 10/19/17 14:40 Pulse 85 10/19/17 15:19 Resp 20 10/19/17 14:40 BP 165/83 10/19/17 15:19 Pulse Ox 92 L 10/19/17 14:40 Intake & Output 10/18/17 10/19/17 10/19/17 18:59 06:59 18:59 Intake Total 200 150 Output Total 590 Balance -390 150 Intake: Intake, IV Titration 200 150 Amount cefTRIAXone 1,000 mg In 50 Sodium Chloride 0.9% 50 ml @ 100 mls/hr IVPB Q24HR [facility] Rx#:[id number] metroNIDAZOLE-NS PMX 500 200 100 mg In Saline 1 100ml.bag @ 100 mls/hr IVPB Q6H [facility] Rx#:[id number] Output: Urine 590 Other: Voiding Method Toilet Toilet # Voids 3 1 1 - Exam Abdomen: Soft, nondistended, mild tenderness diffusely - Labs CBC & Chem 7: 10/17/17 01:09 10/18/17 19:29 Labs: Abnormal Lab Results - Last 24 Hours (Table) 10/18/17 Range/Units 19:29 Potassium 3.4 L (3.5-5.1) mmol/L Microbiology - Last 24 Hours (Table) 10/17/17 01:09 Blood Culture - Preliminary Blood No Growth after 48 hours Assessment and Plan (1) Constipation Narrative/Plan: Will advance to full liquid diet. Await ureteral stent tomorrow. We'll follow. Current Visit: No Status: Acute Code(s): K59.00 - CONSTIPATION, UNSPECIFIED SNOMED Code(s): 26090467
[2017-10-19] MEDS: KETOROLAC 30 MG/ML 1 ML VIAL IVP PRN (19:59)
--- NOTE | 2017-10-19 20:17 | PN ---
PROGRESS NOTE CHIEF COMPLAINT: Lower abdominal pain, recurrent ovarian carcinoma and ureteral obstructions. HISTORY OF PRESENT ILLNESS: This lady is quite comfortable. She is going for her stenting tomorrow. She is having bowel movements. PHYSICAL EXAM: She is less tender. Bowel sounds are present. IMPRESSION: 1. Carcinoma of the ovary. 2. Bilateral hydronephrosis due to obstruction of the ureters, which is worse on the right than the left. PLAN: Continue with analgesics and wait for her procedure tomorrow. MMODL / IJN: [id number] /
[2017-10-19] MEDS: ONDANSETRON 4 MG/2 ML VIAL IVP PRN (20:31)
[2017-10-19] MEDS: diphenhydrAMINE 25 MG CAP PO SCH (20:32)
[2017-10-19] MEDS ORDERED: MORPHINE SULFATE 2 MG/ML SYRINGE IV PRN (21:55)
[2017-10-19] MEDS ORDERED: ONDANSETRON 4 MG/2 ML VIAL IVP ONE (21:55)
[2017-10-19] MEDS ORDERED: ONDANSETRON 4 MG/2 ML VIAL IVP PRN (21:55)
[2017-10-19] MEDS ORDERED: DEXAMETHASONE SOD PHOSPHATE 10 MG/ML 1 ML VIAL IV ONE (21:55)
[2017-10-19] MEDS ORDERED: PROMETHAZINE INJ 6.25 MG in SODIUM CHLORIDE 0.9% 50 ML IVPB PRN (21:55)
[2017-10-19] MEDS: ZOLPIDEM 10 MG TAB PO PRN (22:50)
[2017-10-20] MEDS: KETOROLAC 30 MG/ML 1 ML VIAL IVP PRN ×2 (02:12→13:17)
[2017-10-20] MEDS: ALPRAZolam 0.25 MG TAB PO PRN ×2 (02:36→13:17)
[2017-10-20] MEDS ORDERED: LISINOPRIL 20 MG TAB PO STA (03:29)
[2017-10-20] MEDS: metroNIDAZOLE-NS PMX 500 MG in SALINE 1 100ML.BAG IVPB SCH ×4 (05:00→22:08)
[2017-10-20] MEDS: ONDANSETRON 4 MG/2 ML VIAL IVP PRN (05:01)
[2017-10-20] MEDS: HYDROcodone/APAP 10-325MG 1 EACH TAB PO PRN ×2 (05:09→17:21)
[2017-10-20] MEDS: cefTRIAXone IN SWFI 1,000 MG/10 ML SYRINGE IVP SCH (09:36)
[2017-10-20 10:30] LABS: Glucose,Whole Blood 88 mg/dL (75-99)
[2017-10-20] MEDS ORDERED: LABETALOL 5 MG/ML VIAL MDV IVP ONE (10:38)
[2017-10-20] MEDS ORDERED: IV FLUID CONTINUATION 1,000 ML IV ONE (10:39)
[2017-10-20] MEDS ORDERED: ONDANSETRON 4 MG/2 ML VIAL IVP ONE (10:45)
[2017-10-20] MEDS ORDERED: PROPOFOL 10 MG/ML 20 ML VIAL IV ONE (11:15)
[2017-10-20] MEDS ORDERED: fentaNYL (PF) 50 MCG/ML 2 ML AMP ONE (11:15)
[2017-10-20] MEDS ORDERED: LIDOCAINE 1% INJ 10MG/ML (20 ML MDV) ONE (11:15)
[2017-10-20] MEDS ORDERED: MIDAZOLAM 2 MG/2 ML VIAL ONE (11:15)
[2017-10-20] MEDS ORDERED: ePHEDrine SULFATE/0.9% NACL/PF 50 MG/5 ML SYRINGE IV ONE (11:15)
[2017-10-20] MEDS ORDERED: SUCCINYLCHOLINE CHLORIDE 100 MG/5 ML SYR IV ONE (11:15)
[2017-10-20] MEDS ORDERED: IOHEXOL 350 MG/ML 50 ML in EMPTY BAG 1 BAG IRRIGATION ONE (11:40)
--- NOTE | 2017-10-20 12:25 | FL ---
EXAMINATION TYPE: FL urography retrograde DATE OF EXAM: 10/20/2017 COMPARISON: NONE HISTORY: Right ureteral stent placement TECHNIQUE: Fluoroscopy. FINDINGS: Fluoroscopic guidance was provided during procedure performed by Dr. Unger. A total of 5 7 seconds of fluoroscopic time was utilized during the procedure and 6 spot images was acquired demon strating retrograde opacification of the collecting systems and right ureteral stent placement.
[2017-10-20] MEDS: PANTOPRAZOLE 40 MG/10 ML VIAL IV SCH (13:13)
[2017-10-20] MEDS: DILTIAZEM CD 120 MG CAP.ER.24H PO SCH (13:13)
[2017-10-20] MEDS: ESCITALOPRAM 20 MG TAB PO SCH (13:14)
[2017-10-20] MEDS: RIVAROXABAN 20 MG TAB PO SCH (13:14)
[2017-10-20] MEDS: NITROGLYCERIN EXTENDED RELEASE 2.5 MG CAPSULE.ER PO SCH ×2 (13:14→20:49)
[2017-10-20] MEDS: LACTATED RINGERS 1,000 ML IV SCH ×2 (13:15→23:11)
--- NOTE | 2017-10-20 15:52 | P.OP ---
Date of Procedure: 10/20/17 Preoperative Diagnosis: Bilateral hydronephrosis Postoperative Diagnosis: Right hydronephrosis Procedure(s) Performed: Cystoscopy, bilateral retrograde pyelograms, right ureteral stent insertion Anesthesia: DIMITRISA Surgeon: Merlin Unger Estimated Blood Loss (ml): 0 IV fluids (ml): 300 Pathology: none sent Condition: stable Disposition: PACU Indications for Procedure: The patient is a 62-year-old woman with ovarian cancer, which has been treated over 10 years. She has a known right pelvic mass. Her oncologist is Dr. Aris Hurtado at [facility]. He has discussed stent placement with her in the past. Her serum creatinine level is 1.80, up from 0.851 week ago and has failed to normalize. In view of this, she comes for stent placement. Operative Findings: Right proximal ureteral obstruction. No evidence of left hydronephrosis. Description of Procedure: The patient was taken to the operating room and placed in the dorsolithotomy position, with legs supported in Avery stirrups. The external genitalia was prepped and draped sterilely. The 30 lens was used to introduce the 19-St Lucian Stortz cystoscopic sheath through the urethra and into the bladder under direct vision. The bladder was examined in its entirety. Both ureteral orifices were of normal anatomic location and configuration, and clear urine effluxed from both. No tumors or foreign bodies were seen. Using a 10-St Lucian cone-tipped catheter, bilateral retrograde pyelograms were performed in the standard fashion. The images were viewed on fluoroscopy. The left ureter and renal pelvis appeared normal, showing no evidence of obstruction , dilation, or filling defects. The system drained promptly. The distal two thirds of the right ureter appeared normal, but obstruction was met beyond which no contrast passed. A 0.035 inch Glidewire was passed through the cystoscope. The right ureteral orifice was cannulated, and the Glidewire was slowly advanced up to the renal pelvis. A 26 cm, 6-St Lucian double-J ureteral stent was placed over the wire. Proper stent positioning was verified fluoroscopically and endoscopically. The bladder was emptied and the cystoscope removed. The patient tolerated the procedure well was taken to the recovery room in stable condition.
--- NOTE | 2017-10-20 16:18 | PN ---
PROGRESS NOTE CHIEF COMPLAINT: Abdominal pain, CA of the ovary and hydronephrosis. HISTORY OF PRESENT ILLNESS: This lady is still having significant amount of pain and she went to the operating room where stents were placed. She is being followed by Urology and General Surgery and she is not having any more GI or bowel problems. PHYSICAL EXAM: Abdomen is more soft and she is still a bit tender in the lower quadrants. Bowel sounds present. IMPRESSION: 1. Carcinoma of the ovary. 2. Partial small-bowel obstruction. 3. Hydronephrosis with ureteral obstruction. PLAN: If she continues to do well and pain can be controlled, she will go home soon and start her chemotherapy on the twenty second. MMODL / IJN: [id number] /
--- NOTE | 2017-10-20 17:10 | P.PN ---
Subjective Progress Note Date: 10/20/17 Principal diagnosis: Ileus Patient had her ureteral stent placed today. Still had some nausea and discomfort last night. She did have bowel movements last night and again today. Objective - Vital Signs Vital signs: Vital Signs Temp 98.1 F 10/20/17 13:05 Pulse 78 10/20/17 12:29 Resp 95 H 10/20/17 13:05 BP 172/79 10/20/17 14:15 Pulse Ox 96 10/20/17 12:29 Intake & Output 10/19/17 10/20/17 10/20/17 18:59 06:59 18:59 Intake Total 616 287 5531 Output Total 0 Balance 357 422 0268 Weight 88 kg Intake: IV 351 Intake, IV Titration 150 100 700 Amount IV Fluid Continuation 1, 700 000 ml As IV .[facility] Rx#:[id number] cefTRIAXone 1,000 mg In 50 Sodium Chloride 0.9% 50 ml @ 100 mls/hr IVPB Q24HR [facility] Rx#:[id number] metroNIDAZOLE-NS PMX 500 100 100 mg In Saline 1 100ml.bag @ 100 mls/hr IVPB Q6H [facility] Rx#:[id number] Oral 590 Output: Estimated Blood Loss 0 Other: Voiding Method Toilet Toilet Toilet # Voids 1 2 - Exam Abdomen: Soft, nondistended, mild diffuse tenderness - Labs CBC & Chem 7: 10/17/17 01:09 10/18/17 19:29 Labs: Microbiology - Last 24 Hours (Table) 10/17/17 01:09 Blood Culture - Preliminary Blood No Growth after 72 hours 10/19/17 16:15 Urine Culture - Preliminary Urine,Clean Catch Assessment and Plan (1) Constipation Narrative/Plan: Continue full liquids. Hopefully patient will tolerate and we can advance as tolerated at that point. We'll reevaluate tomorrow. Current Visit: No Status: Acute Code(s): K59.00 - CONSTIPATION, UNSPECIFIED SNOMED Code(s): 92329177
[2017-10-20] MEDS: POLYETHYLENE GLYCOL 3350 17 GM POWD.PACK PO SCH (17:12)
[2017-10-20] MEDS: LORazepam 2 MG/ML INJ IV PRN (17:21)
[2017-10-20] MEDS: diphenhydrAMINE 25 MG CAP PO SCH (20:52)
[2017-10-20] MEDS: ZOLPIDEM 10 MG TAB PO PRN (22:40)
[2017-10-21] MEDS: metroNIDAZOLE-NS PMX 500 MG in SALINE 1 100ML.BAG IVPB SCH ×4 (04:25→22:47)
[2017-10-21] MEDS: DILTIAZEM CD 120 MG CAP.ER.24H PO SCH (06:04)
--- NOTE | 2017-10-21 06:42 | P.PN ---
Subjective Progress Note Date: 10/21/17 The patient underwent cystoscopy and placement of a double-J catheter yesterday. She is sleeping comfortably. Her vital signs are stable. The nurse states that she is voicing no complaints. Objective - Vital Signs Vital signs: Vital Signs Temp 98.3 F 10/21/17 05:45 Pulse 77 10/21/17 05:45 Resp 18 10/21/17 05:45 BP 185/87 10/21/17 05:45 Pulse Ox 95 10/21/17 05:45 Intake & Output 10/20/17 10/20/17 10/21/17 06:59 18:59 06:59 Intake Total 690 1051 420 Output Total 590 Balance 690 461 420 Weight 88 kg Intake: IV 351 Intake, IV Titration 100 700 Amount IV Fluid Continuation 1, 700 000 ml As IV .[facility] Rx#:[id number] metroNIDAZOLE-NS PMX 500 100 mg In Saline 1 100ml.bag @ 100 mls/hr IVPB Q6H [facility] Rx#:[id number] Oral 590 420 Output: Urine 590 Estimated Blood Loss 0 Other: Voiding Method Toilet Toilet Toilet # Voids 2 2 3 - Labs CBC & Chem 7: 10/17/17 01:09 10/18/17 19:29 Labs: Microbiology - Last 24 Hours (Table) 10/17/17 01:09 Blood Culture - Preliminary Blood No Growth after 96 hours 10/19/17 16:15 Urine Culture - Final Urine,Clean Catch
[2017-10-21] MEDS: cefTRIAXone IN SWFI 1,000 MG/10 ML SYRINGE IVP SCH (08:04)
[2017-10-21] MEDS: LISINOPRIL 20 MG TAB PO SCH (08:05)
[2017-10-21] MEDS: NITROGLYCERIN EXTENDED RELEASE 2.5 MG CAPSULE.ER PO SCH ×2 (08:05→21:20)
[2017-10-21] MEDS: ESCITALOPRAM 20 MG TAB PO SCH (08:05)
[2017-10-21] MEDS: PANTOPRAZOLE 40 MG/10 ML VIAL IV SCH (08:05)
[2017-10-21] MEDS: RIVAROXABAN 20 MG TAB PO SCH (08:06)
[2017-10-21] MEDS: POLYETHYLENE GLYCOL 3350 17 GM POWD.PACK PO SCH (08:06)
[2017-10-21] MEDS: ONDANSETRON 4 MG/2 ML VIAL IVP PRN ×2 (08:19→14:26)
[2017-10-21] MEDS: HYDROcodone/APAP 10-325MG 1 EACH TAB PO PRN (08:52)
--- NOTE | 2017-10-21 09:44 | CT ---
EXAMINATION TYPE: CT brain wo con DATE OF EXAM: 10/21/2017 COMPARISON: 08/04/2016 HISTORY: Pt c/o double vision. History of ovarian CA CT DLP: 945.5 mGycm Automated exposure control for dose reduction was used. FINDINGS: There is no lacunar injury of the right medial caudate head. This is unchanged from 08/04/2016. Puncta te right basal ganglia calcifications are noted. There is no evidence of midline shift or mass effect . No acute intracranial hemorrhage. Scattered areas of subcortical white matter change are seen withi n the frontal lobes. No hydrocephalus is seen. No suspicious extra-axial fluid collection. Calvarium is intact. Paranasal sinuses and mastoid air cells are well aerated. No discrete vasogenic edema. IMPRESSION: OLD LACUNAR INJURY OF THE RIGHT CAUDATE HEAD AND NONSPECIFIC WHITE MATTER CHANGE. NO ACUTE INTRACRANI AL PROCESS IS IDENTIFIED. IF THERE IS FURTHER CONCERN FOR METASTASIS MR COULD BE PERFORMED.
--- NOTE | 2017-10-21 13:55 | PN ---
PROGRESS NOTE DATE OF SERVICE: 10/21/2017 CHIEF COMPLAINT: CA of the ovary. HISTORY OF PRESENT ILLNESS: This lady is having a little trouble with diplopia. This has been going on for several days. She also has a slight headache. Blood pressure is up slightly. She has had no chest pain, palpitations, etc. PHYSICAL EXAM: Pupils equal, round and gaze seems to be conjugate. Neck is supple. Carotids normal. Chest is clear and cardiac exam is normal. IMPRESSION: 1. Carcinoma of the ovary. 2. Ureteral obstruction. 3. Diplopia. 4. Headache. 5. Elevated blood pressure. PLAN: 1. CT of the brain. 2. Consult with Neurology. MMODL / IJN: [id number] /
[2017-10-21] MEDS: ACETAMINOPHEN TAB 325 MG TAB PO PRN (14:26)
--- NOTE | 2017-10-21 15:08 | P.PN ---
Subjective Progress Note Date: 10/21/17 Principal diagnosis: Ileus Patient says her abdominal symptoms are essentially unchanged although now she believes is related to her double vision. No vomiting. Small amount of bowel activity. Appetite diminished. Objective - Vital Signs Vital signs: Vital Signs Temp 97.0 F L 10/21/17 14:56 Pulse 65 10/21/17 14:56 Resp 18 10/21/17 14:56 BP 158/68 10/21/17 14:56 Pulse Ox 94 L 10/21/17 14:56 Intake & Output 10/20/17 10/21/17 10/21/17 18:59 06:59 18:59 Intake Total 1051 420 Output Total 590 Balance 461 420 Weight 88 kg 88 kg Intake: IV 351 Intake, IV Titration 700 Amount IV Fluid Continuation 1, 700 000 ml As IV [facility] Rx#:[id number] Oral 420 Output: Urine 590 Estimated Blood Loss 0 Other: Voiding Method Toilet Toilet Toilet # Voids 2 3 6 - Exam Abdomen: Soft, nondistended, mild diffuse tenderness - Labs CBC & Chem 7: 10/17/17 01:09 10/18/17 19:29 Labs: Microbiology - Last 24 Hours (Table) 10/17/17 01:09 Blood Culture - Preliminary Blood No Growth after 96 hours 10/19/17 16:15 Urine Culture - Final Urine,Clean Catch Assessment and Plan (1) Constipation Narrative/Plan: Will increase diet. Continue workup of double vision. Will follow. Current Visit: No Status: Acute Code(s): K59.00 - CONSTIPATION, UNSPECIFIED SNOMED Code(s): 99007396
[2017-10-21] MEDS: LORazepam 2 MG/ML INJ IV PRN (16:51)
[2017-10-21] MEDS: KETOROLAC 30 MG/ML 1 ML VIAL IVP PRN (18:52)
[2017-10-21] MEDS: ALPRAZolam 0.25 MG TAB PO PRN (19:08)
[2017-10-21] MEDS: diphenhydrAMINE 25 MG CAP PO SCH (21:20)
[2017-10-21] MEDS: LACTATED RINGERS 1,000 ML IV SCH (21:21)
[2017-10-21] MEDS: ZOLPIDEM 10 MG TAB PO PRN (23:19)
[2017-10-22] MEDS: ONDANSETRON 4 MG/2 ML VIAL IVP PRN ×2 (04:18→21:28)
[2017-10-22] MEDS: HYDROcodone/APAP 10-325MG 1 EACH TAB PO PRN ×3 (04:18→17:31)
[2017-10-22] MEDS: metroNIDAZOLE-NS PMX 500 MG in SALINE 1 100ML.BAG IVPB SCH ×2 (04:41→11:28)
[2017-10-22] MEDS: ALPRAZolam 0.25 MG TAB PO PRN ×2 (05:03→22:11)
[2017-10-22 07:22] LABS: Anisocytosis Slight; Basophils % (A) 1 %; Eosinophils # (A) 0.1 k/uL (0-0.7); Eosinophils % (A) 3 %; HCT 30.4 % (34.0-46.0); HGB 9.8 gm/dL (11.4-16.0); Hypochromasia Slight; Lymphocytes # (A) 1.1 k/uL (1.0-4.8); Lymphocytes % (A) 25 %; MCH 27.2 pg (25.0-35.0); MCHC 32.4 g/dL (31.0-37.0); MCV 84.1 fL (80.0-100.0); Mean Platelet Volume 8.3; Monocytes # (A) 0.4 k/uL (0-1.0); Monocytes % (A) 8 %; Neutrophils # (A) 2.6 k/uL (1.3-7.7); Neutrophils % (A) 60 %; Platelet Count 155 k/uL (150-450); Poikilocytosis Slight; RBC 3.61 m/uL (3.80-5.40); RDW 16.2 % (11.5-15.5); WBC 4.4 k/uL (3.8-10.6)
[2017-10-22] MEDS: ESCITALOPRAM 20 MG TAB PO SCH (08:46)
[2017-10-22] MEDS: LISINOPRIL 20 MG TAB PO SCH (08:46)
[2017-10-22] MEDS: NITROGLYCERIN EXTENDED RELEASE 2.5 MG CAPSULE.ER PO SCH ×2 (08:46→20:57)
[2017-10-22] MEDS: RIVAROXABAN 20 MG TAB PO SCH (08:46)
[2017-10-22] MEDS: PANTOPRAZOLE 40 MG/10 ML VIAL IV SCH (08:46)
[2017-10-22] MEDS: POLYETHYLENE GLYCOL 3350 17 GM POWD.PACK PO SCH (08:46)
[2017-10-22] MEDS: DILTIAZEM CD 120 MG CAP.ER.24H PO SCH (08:47)
[2017-10-22] MEDS: cefTRIAXone IN SWFI 1,000 MG/10 ML SYRINGE IVP SCH (08:47)
[2017-10-22 09:52] LABS: Albumin 2.5 g/dL (3.5-5.0); Total Bilirubin 0.4 mg/dL (0.2-1.3); Total Protein 4.8 g/dL (6.3-8.2)
[2017-10-22 10:02] LABS: Potassium 2.1 mmol/L (3.5-5.1)
[2017-10-22] MEDS ORDERED: POTASSIUM CHLORIDE 10 MEQ in WATER FOR INJECTION 1 100ML.BAG IVPB ONE (11:00)
--- NOTE | 2017-10-22 11:48 | US ---
EXAMINATION TYPE: US carotid duplex BILAT DATE OF EXAM: 10/22/2017 COMPARISON: US 10/05/2015 CLINICAL HISTORY: vision changes. EXAM MEASUREMENTS: RIGHT: Peak Systolic Velocity (PSV) cm/sec ----- Right CCA: 61.4 ----- Right ICA: 54.9 ----- Right ECA: 66.9 ICA/CCA ratio: 0.9 RIGHT: End Diastole cm/sec ----- Right CCA: 9.8 ----- Right ICA: 17.4 ----- Right ECA: 12.0 LEFT: Peak Systolic Velocity (PSV) cm/sec ----- Left CCA: 60.3 ----- Left ICA: 68.0 ----- Left ECA: 98.2 ICA/CCA ratio: 1.1 LEFT: End Diastole cm/sec ----- Left CCA: 13.1 ----- Left ICA: 23.0 ----- Left ECA: 16.7 VERTEBRALS (direction of flow): Right Vertebral: Antegrade Left Vertebral: Antegrade Rhythm: Normal IMPRESSION: MINIMAL AMOUNT OF PLAQUE VISUALIZED BILATERALLY. NO ELEVATED VELOCITIES. NO SIGNIFICANT STENOSIS.
[2017-10-22] MEDS ORDERED: POTASSIUM CHLORIDE 20 MEQ in WATER FOR INJECTION 1 100ML.BAG IVPB ONE ×2 (12:00→19:00)
--- NOTE | 2017-10-22 12:48 | P.PN ---
Subjective Progress Note Date: 10/22/17 Principal diagnosis: Ileus Patient still with diplopia. She tolerated her diet earlier today. She is requesting more to eat. Objective - Vital Signs Vital signs: Vital Signs Temp 98.5 F 10/22/17 06:48 Pulse 72 10/22/17 06:48 Resp 18 10/22/17 06:48 BP 170/80 10/22/17 06:48 Pulse Ox 92 L 10/22/17 06:48 Intake & Output 10/21/17 10/22/17 10/22/17 18:59 06:59 18:59 Intake Total 240 Balance 240 Weight 88 kg Intake: IV 240 Lactated Ringers 1,000 ml 240 @ 20 mls/hr IV .Q24H [facility] Rx#:[id number] Other: Voiding Method Toilet Toilet Toilet # Voids 6 - Exam Abdomen: Soft, nondistended, mild mid abdominal tenderness - Labs CBC & Chem 7: 10/22/17 07:09 10/22/17 07:09 Labs: Abnormal Lab Results - Last 24 Hours (Table) 10/22/17 10/22/17 Range/Units 07:09 07:09 RBC 3.61 L (3.80-5.40) m/uL Hgb 9.8 L (11.4-16.0) gm/dL Hct 30.4 L (34.0-46.0) % RDW 16.2 H (11.5-15.5) % Potassium 2.1 L* (3.5-5.1) mmol/L Carbon Dioxide 31 H (22-30) mmol/L Creatinine 1.12 H (0.52-1.04) mg/dL Calcium 8.0 L (8.4-10.2) mg/dL Total Protein 4.8 L (6.3-8.2) g/dL Albumin 2.5 L (3.5-5.0) g/dL Microbiology - Last 24 Hours (Table) 10/17/17 01:09 Blood Culture - Preliminary Blood No Growth after 120 hours Assessment and Plan (1) Constipation Narrative/Plan: Advance diet. Continue workup of diplopia. Current Visit: No Status: Acute Code(s): K59.00 - CONSTIPATION, UNSPECIFIED SNOMED Code(s): 77987889
[2017-10-22 14:16] LABS: Appearance,Urine Clear (Clear); Bacteria,Urine Rare /hpf; Bilirubin,Urine Negative (Negative); Blood,Urine Large (Negative); Color,Urine Yellow; Glucose,Urine (UA) Negative (Negative); Hyaline Casts,Urine 4 /lpf (0-2); Ketones,Urine 1+ (Negative); Leukocyte Esterase,Urine Negative (Negative); Mucus,Urine Rare /hpf; Nitrite,Urine Negative (Negative); Protein,Urine 3+ (Negative); RBC,Urine >182 /hpf (0-5); Specific Gravity,Urine 1.012 (1.001-1.035); Urobilinogen,Urine <2.0 mg/dL (<2.0); WBC,Urine 17 /hpf (0-5)
[2017-10-22] MEDS: metroNIDAZOLE 500 MG TAB PO SCH ×2 (17:03→20:57)
[2017-10-22] MEDS: ONDANSETRON 4 MG TAB PO PRN (18:02)
--- NOTE | 2017-10-22 18:19 | P.CNNES ---
History of Present Illness Consult date: 10/22/17 Requesting physician: Kevin Metzger Reason for Consult: Vision Changes Chief complaint: Diplopia and Vision Changes History of Present Illness: Neurology is consulting on a 62 year old female with vision changes. Patient has a recent history of bowel obstruction, UTI that presented to the ED. Patient original chief complaint was fever and abdominal pain. Patient has a history of ovarian cancer and was followed up on by her oncologist last week. Patient was started on miralax and medication for GI/bowel motility. Patient had CT abdomen and pelvis and noted right pelvic mass with compression of the ureter and resultant hydroureter which had worsen week over week on imaging. Patient had a urteral stent placed. Patient has been followed by urology and surgery since. Patient is AOx3, resting in bed in no acute distress. Patient states that she has had increased vision changes since her uretral stent placement. Patient states she has had spots and floaters in her vision intermittently for the past two years, but not overtly blurry vision or double vision. She states that now her vision can become blurry with intermittent diplopia and becomes worse at times with positional changes, lying to sitting and leaning over at the waist. Patient then also states that the changes happen without positional changes and can be without movement or activity. Changes last from minutes to seconds then return to normal. Occurrences are intermittent but persistent and now more frequent. Review of Systems all systems not noted in hpi are negative. Past Medical History Past Medical History: Cancer, Deep Vein Thrombosis (DVT), GERD/Reflux Additional Past Medical History / Comment(s): tmj, OVARIAN CANCER, urinary intractions, partial bowel obstruction History of Any Multi-Drug Resistant Organisms: None Reported Past Surgical History: Adenoidectomy, Appendectomy, Cholecystectomy, Heart Catheterization With Stent, Hysterectomy, Tonsillectomy Additional Past Surgical History / Comment(s): ovarian cancer with bilateral oopherectomy 2005; 2 open exploratory abdominal surgery, mediport placed 2011 Past Anesthesia/Blood Transfusion Reactions: No Reported Reaction Date of Last Stent Placement:: 2011 Past Psychological History: Anxiety, Depression Smoking Status: Never smoker Past Alcohol Use History: None Reported Additional Past Alcohol Use History / Comment(s): Patient is been a lifelong nonsmoker. She lives at home with her friend and a dog. Past Drug Use History: None Reported - Past Family History Mother Family Medical History: Diabetes Mellitus, Dialysis Brother(s) Family Medical History: Cancer Additional Family Medical History / Comment(s): lung cancer- since passed Sister(s) Family Medical History: CVA/TIA Father Family Medical History: Neurologic Disorder Additional Family Medical History / Comment(s): alzheimers Medications and Allergies Home Medications Medication Instructions Recorded Confirmed Type ALPRAZolam [Xanax] 0.25 mg PO TID PRN 08/25/14 10/17/17 History Diltiazem HCl [Diltiazem 24Hr ER] 120 mg PO DAILY 08/25/14 10/17/17 History Escitalopram [Lexapro] 20 mg PO DAILY 08/25/14 10/17/17 History HYDROcodone/APAP 10-325MG [[place] 1 tab PO QID PRN 08/25/14 10/17/17 History 10-325] Nitroglycerin Extended Release 2.5 mg PO BID capsule.er 08/28/14 10/17/17 Rx [Nitro-Bid] Rivaroxaban [Xarelto] 20 mg PO DAILY 10/14/14 10/17/17 History Nitroglycerin Sl Tabs [Nitrostat] 0.4 mg PO Q5M PRN 10/05/15 10/17/17 History Ondansetron HCl [Zofran] 8 mg PO BID PRN 10/05/15 10/17/17 History Zolpidem [Ambien] 10 mg PO HS PRN 08/04/16 10/17/17 History Polyethylene Glycol 3350 [Miralax] 17 gm PO DAILY 10/05/17 10/17/17 History diphenhydrAMINE HCL [Benadryl] 25 mg PO HS 10/05/17 10/17/17 History Ergocalciferol (Vitamin D2) 50,000 unit PO Q30D 10/17/17 10/17/17 History [Vitamin D2] Esomeprazole Magnesium [NexIUM 20 mg PO DAILY 10/17/17 10/17/17 History 24Hr] Gabapentin [Neurontin] 300 mg PO QID PRN 10/17/17 10/17/17 History Allergies Allergy/AdvReac Type Severity Reaction Status Date / Time adhesive Allergy Rash/Hives Verified 10/17/17 08:47 carboplatin Allergy Anaphylaxis Verified 10/17/17 08:47 iodine Allergy Rash/Hives Verified 10/17/17 08:47 Penicillins Allergy Rash/Hives Verified 10/17/17 08:47 codeine AdvReac Nausea & Verified 10/17/17 08:47 Vomiting morphine AdvReac Nausea & Verified 10/17/17 08:47 Vomiting Physical Examination - Vital Signs Vital Signs: Vital Signs Temp Pulse Resp BP Pulse Ox 10/22/17 15:00 98.3 F 68 18 138/71 94 L 10/22/17 06:48 98.5 F 72 18 170/80 92 L 10/21/17 21:21 99.1 F 91 18 173/84 92 L Intake and Output 10/22/17 10/22/17 10/22/17 06:59 14:59 22:59 Intake Total 160 Balance 160 Intake: IV 160 Lactated Ringers 1,000 ml 160 @ 20 mls/hr IV .Q24H [facility] Rx#:[id number] Other: Voiding Method Toilet Toilet Toilet # Voids 4 General appearance: Alert & oriented x4, no apparent distress. Head: Atraumatic, normocephalic, normal inspection Eyes: Well appearance, PERRLA, EOMI. Absent scleral icterus, conjunctival injection, nystagmus, periorbital swelling. Ear, nose and throat: Normal exam, mucous membranes moist Neck: Normal inspection, absent tenderness, lymphadenopathy. Respiratory: No increased work of breathing Cardiovascular: Regular rate, rhythm GI/abdominal: guarding, tenderness, post surgical status Extremities: full range of motion in all 4 extremitities Neurological: cranial nerves II through XII intact no lateralizing weakness no seizure activity noted on physical exam no pronator drift and no nystagmus. Strength is equal in all 4 extremities Sensation: equal in all 4 extremities to light sensation Psychological: Mood and affect appropriate for setting. Results - Laboratory Findings CBC and BMP: 10/22/17 07:09 10/22/17 16:59 Abnormal Lab Findings: Abnormal Labs 10/17/17 10/17/17 10/17/17 01:09 01:09 01:09 RBC Hgb 11.0 L Hct 33.7 L RDW 16.0 H Neutrophils # 8.6 H INR 1.3 H APTT 37.1 H D-Dimer 0.81 H Potassium 3.2 L Carbon Dioxide Creatinine 1.80 H Glucose 112 H Calcium 8.3 L AST 46 H Total Protein 5.6 L Albumin 3.1 L Urine Appearance Urine Protein Urine Ketones Urine Blood Ur Leukocyte Esterase Urine RBC Urine WBC Urine Bacteria Hyaline Casts Urine Mucus 10/17/17 10/18/17 10/18/17 01:09 06:48 19:29 RBC Hgb Hct RDW Neutrophils # INR APTT D-Dimer Potassium 3.0 L* 3.4 L Carbon Dioxide Creatinine 1.72 H Glucose Calcium 7.6 L AST Total Protein Albumin Urine Appearance Cloudy H Urine Protein 3+ H Urine Ketones Urine Blood Moderate H Ur Leukocyte Esterase Moderate H Urine RBC 11 H Urine WBC 100 H Urine Bacteria Many H Hyaline Casts 8 H Urine Mucus Rare H 10/22/17 10/22/17 10/22/17 07:09 07:09 13:40 RBC 3.61 L Hgb 9.8 L Hct 30.4 L RDW 16.2 H Neutrophils # INR APTT D-Dimer Potassium 2.1 L* Carbon Dioxide 31 H Creatinine 1.12 H Glucose Calcium 8.0 L AST Total Protein 4.8 L Albumin 2.5 L Urine Appearance Urine Protein 3+ H Urine Ketones 1+ H Urine Blood Large H Ur Leukocyte Esterase Urine RBC >182 H Urine WBC 17 H Urine Bacteria Rare H Hyaline Casts 4 H Urine Mucus Rare H Assessment and Plan (1) Diplopia Current Visit: Yes Status: Acute Code(s): H53.2 - DIPLOPIA SNOMED Code(s) : 13611354 (2) Vision changes Current Visit: Yes Status: Acute Code(s): H53.9 - UNSPECIFIED VISUAL DISTURBANCE SNOMED Code(s): 791955999 Plan: Diplopia Vision changes Patient's presentation of vision changes varies considerably over the duration of the symptoms. For greater than 2 years patient has had intermittent spots and floaters in her vision now reports diplopia and blurry vision with and without positional changes. At this point, patient vision changes may be multifactorial in etiology and may involve neurological as well as cardiac etiology. Further given the patient's history of cancer, metastasis although rare for ovarian cancer to the brain, must be ruled out. Requested MRI brain with and without contrast to rule out any new underlying etiology related to metastasis or other DENTAL SPECIALIST related etiology. Ordered an EEG at this time. Continue neurological checks per protocol. Further recommendations will be forthcoming once results of imaging and testing is received and reviewed. Status: Neurology will continue to follow provide updates as needed or warranted. I have discussed the plan of care with the physician prior to implementation and he agrees with the plan as implemented.
[2017-10-22] MEDS: LACTATED RINGERS 1,000 ML IV SCH (20:39)
[2017-10-22] MEDS: diphenhydrAMINE 25 MG CAP PO SCH (20:57)
[2017-10-22] MEDS: MORPHINE SULFATE 2 MG/ML SYRINGE IVP PRN (22:07)
[2017-10-22] MEDS: ZOLPIDEM 10 MG TAB PO PRN (22:11)
[2017-10-23] MEDS: NITROGLYCERIN EXTENDED RELEASE 2.5 MG CAPSULE.ER PO SCH ×2 (08:53→20:55)
[2017-10-23] MEDS: LISINOPRIL 20 MG TAB PO SCH (08:53)
[2017-10-23] MEDS: RIVAROXABAN 20 MG TAB PO SCH (08:53)
[2017-10-23] MEDS: PANTOPRAZOLE 40 MG TABLET PO SCH (08:53)
[2017-10-23] MEDS: ESCITALOPRAM 20 MG TAB PO SCH (08:53)
[2017-10-23] MEDS: ALPRAZolam 0.25 MG TAB PO PRN ×2 (08:53→15:43)
[2017-10-23] MEDS: DILTIAZEM CD 120 MG CAP.ER.24H PO SCH (08:53)
[2017-10-23] MEDS: metroNIDAZOLE 500 MG TAB PO SCH ×4 (08:56→20:55)
[2017-10-23] MEDS: ONDANSETRON 4 MG/2 ML VIAL IVP PRN ×2 (09:00→14:17)
[2017-10-23] MEDS: cefTRIAXone IN SWFI 1,000 MG/10 ML SYRINGE IVP SCH (09:00)
[2017-10-23] MEDS: POLYETHYLENE GLYCOL 3350 17 GM POWD.PACK PO SCH (10:21)
--- NOTE | 2017-10-23 15:23 | MR ---
EXAMINATION TYPE: MR brain wo/w con DATE OF EXAM: 10/23/2017 COMPARISON: CT brain from 2 days ago. HISTORY: Double vision lt eye, N & V, hx ovarian ca TECHNIQUE: Multiplanar, multisequence images of the brain and brainstem is performed without and with IV contras t, utilizing 8.5 mL intravenous Gadavist . FINDINGS: Exam is suboptimal due to patient motion fast protocol had to be utilized. Diffusion weight ed images demonstrate no evidence of a recent infarct or other diffusion abnormality. There is no wo rrisome extra-axial fluid collection. The ventricular system and cisternal spaces are normal in size and appearance. The brain volume is age appropriate. Some scattered foci of T2 hyperintensity seen throughout the deep and periventricular white matter are present most likely on basis of product of c hronic small vessel ischemic change in patient of this age. Midline structures demonstrate normal morphology. The craniocervical junction appears within normal limits. Post contrast images demonstrate no abnormal enhancement. The dural venous sinuses appear pa tent. The visualized sinuses are clear and the globes are intact. IMPRESSION: 1. No evidence of a recent infarct. 2. No suspicious enhancing intraparenchymal masses are noted. 3. Mild to moderate nonspecific white matter changes most likely on basis of product of chronic small vessel ischemic change in patient of this age.
[2017-10-23] MEDS: HYDROcodone/APAP 10-325MG 1 EACH TAB PO PRN ×2 (15:42→22:33)
[2017-10-23] MEDS: POTASSIUM CHLORIDE ER 20 MEQ TAB.ER PO SCH ×2 (15:45→18:02)
--- NOTE | 2017-10-23 18:48 | EEG ---
ELECTROENCEPHALOGRAM REPORT DATE OF SERVICE: 10/23/2017 REASON FOR TESTING: Altered mental status. DESCRIPTION OF THE PROCEDURE: This EEG was performed using a 21-channel digital electroencephalograph, following international 10-20 system. DESCRIPTION OF THE RECORDING: From the beginning of the tracing, and with the patient's eyes closed, the background rhythm was mostly consisting of 8 Hz alpha frequency in the posterior occipital leads. No obvious asymmetry is seen. Frequent muscle artifacts are noticed. Photic stimulation was performed with a good driving response seen. No pathological waves were elicited. Hyperventilation was not performed. More frequent muscle and movement artifacts are seen later in the tracing. The patient remains awake throughout the tracing. No epileptiform discharges were seen. INTERPRETATION: This awake EEG can be considered within normal limits. There was no asymmetry seen. No epileptiform discharges were noticed. The absence of epileptiform discharges does not rule out the diagnosis of epilepsy; therefore clinical correlation is recommended. MMSUKI / JULIANA: [id number] /
--- NOTE | 2017-10-23 19:26 | P.PN ---
Subjective Progress Note Date: 10/23/17 Principal diagnosis: Diplopia Neurology is following on a 62 year old female with diplopia and vision changes. The patient has a recent history of bowel obstruction, UTI that presented to the ED. Patient's original chief complaint was fever and abdominal pain. Patient has a history of ovarian cancer which is being followed by oncology. Patient had GI imaging and was being followed by GI for hydroureter and renal stent placement. Interval update 10/23/17: Patient is AOx3, resting in bed, in no acute distress, family in the room. Patient's history of her vision changes is now changing. Prior she states that the she has had spots and floaters in her vision x2 years, but not overt or blurry vision that was persistent. Patient stated that at times the vision changes are exacerbated or brought on with positional changes, lying to sitting , leaning over at the waist. She then stated that they happen without positional changes and can be related to movement or activity. Changes lasted from minutes to seconds then irene. Occurrences are intermittent but persistent. Today nursing reporting that the patient is now covered her left eye. Patient on exam yesterday had no change with cover uncover of the eyes. Patient has now stated that this is how she manages and has managed the symptoms, yet this is inconsistent with her report yesterday. Patient's MRI brain was unremarkable for any new or changed known underlying etiology. EEG was unremarkable. At this time we will order a myasthenia gravis panel and continue to follow the patient in the outpatient setting for further workup. Objective - Vital Signs Vital signs: Vital Signs Temp 98.2 F 10/23/17 13:04 Pulse 72 10/23/17 13:04 Resp 16 10/23/17 13:04 BP 160/86 10/23/17 13:04 Pulse Ox 95 10/23/17 13:04 Intake & Output 10/23/17 10/23/17 10/24/17 06:59 18:59 06:59 Intake Total 1160 785 Balance 1160 785 Intake: IV 240 160 Lactated Ringers 1,000 ml 240 160 @ 20 mls/hr IV .Q24H CARMENZA Rx#:[id number] Intake, IV Titration 200 Amount Potassium Chloride 20 meq 200 In Water For Injection 1 100ml.bag @ 50 mls/hr IVPB ONCE ONE Rx#: [id number] Oral 720 625 Other: Voiding Method Toilet Toilet # Voids 2 2 - Exam General appearance: Alert & oriented x3, no apparent distress. Head: Atraumatic, normocephalic, normal inspection Eyes: Well appearance, PERRLA, EOMI. left eye patched by patient Ear, nose and throat: Normal exam, mucous membranes moist Neck: Normal inspection, absent tenderness, lymphadenopathy. Respiratory: No increased work of breathing Cardiovascular: Regular rate, rhythm GI/abdominal: no tenderness, no guarding, no rebound, no rigidity. Extremities: full range of motion, normal capillary refill, no tenderness, pedal edema joint swelling, calf tenderness. Neurological: cranial nerves II through XII intact no lateralizing weakness no seizure activity noted on physical exam no pronator drift and no nystagmus. strength equal in all 4 extremities Sensation equal in all 4 extremities to light touch Psychological: Mood and affect appropriate for setting. - Labs CBC & Chem 7: 10/22/17 07:09 10/22/17 16:59 Labs: Microbiology - Last 24 Hours (Table) 10/17/17 01:09 Blood Culture - Final Blood No Growth after 144 hours Assessment and Plan (1) Diplopia Current Visit: Yes Status: Acute Code(s): H53.2 - DIPLOPIA SNOMED Code(s) : 43699245 (2) Vision changes Current Visit: Yes Status: Acute Code(s): H53.9 - UNSPECIFIED VISUAL DISTURBANCE SNOMED Code(s): 910378369 Plan: Diplopia Vision changes Patient's presentation of vision changes varies considerably over the duration of the symptoms. For greater than 2 years patient has had intermittent spots and floaters in her vision now reports diplopia and blurry vision with and without positional changes. At this point, patient vision changes may be multifactorial in etiology and may involve neurological as well as cardiac etiology. MRI of the brain was unremarkable/noncontributory. EEG was negative. carotid Doppler study was also negative for any significant stenosis. Patient will have myasthenia gravis panel drawn for laboratory evaluation. Discussion related to results will take place in the outpatient setting as well as further treatment options. Workup to continue in the outpatient setting at this time. Status: Neurology clear the patient for discharge from a neurological standpoint at this time. I have discussed the plan of care with the physician prior to implementation and he agrees with the plan as implemented.
--- NOTE | 2017-10-23 19:33 | PN ---
PROGRESS NOTE DATE OF SERVICE: 10/22/17 CHIEF COMPLAINT: Abdominal pain. Ureteral obstruction. HISTORY OF PRESENT ILLNESS: This lady is doing a little bit better. Pain is improved. She has requested to be a DNR. PHYSICAL EXAM: She remains slightly pale. Chest is clear. Cardiac exam is normal. The abdomen is soft and nontender. She is being evaluated for the diplopia as well and has been seen by Neurology. IMPRESSION: 1. Carcinoma of the ovary. 2. Ureteral obstruction with hydronephrosis status post stent. 3. Diplopia. 4. Headaches. PLAN: She is being evaluated by Neurology. CT was negative and the MRI has been ordered. She will be made DNR. MMODL / IJN: [id number] /
--- NOTE | 2017-10-23 19:42 | PN ---
PROGRESS NOTE CHIEF COMPLAINT: Carcinoma of the ovary. HISTORY OF PRESENT ILLNESS: This lady is doing fairly well. She is going for an MRI. PHYSICAL EXAMINATION: CHEST: Clear. Cardiac exam is normal. Abdomen is soft, nontender. She has her left eye covered with a patch. IMPRESSION: 1. Diplopia. 2. Headaches. 3. Carcinoma of the ovary with ureteral obstruction. PLAN: Await results of MRI. She may require an ophthalmology consult as well. MMODL / IJN: [id number] /
[2017-10-23] MEDS: diphenhydrAMINE 25 MG CAP PO SCH (20:55)
--- NOTE | 2017-10-23 21:30 | P.PN ---
Subjective Progress Note Date: 10/23/17 Principal diagnosis: Ileus Patient says she tolerated her diet better this morning. She believes she just needs to take multiple smaller meals which is reasonable. No nausea or vomiting. Mild pain. Objective - Vital Signs Vital signs: Vital Signs Temp 98.2 F 10/23/17 13:04 Pulse 72 10/23/17 13:04 Resp 16 10/23/17 13:04 BP 160/86 10/23/17 13:04 Pulse Ox 95 10/23/17 13:04 Intake & Output 10/23/17 10/23/17 10/24/17 06:59 18:59 06:59 Intake Total 1160 785 Balance 1160 785 Intake: IV 240 160 Lactated Ringers 1,000 ml 240 160 @ 20 mls/hr IV .Q24H CARMENZA Rx#:[id number] Intake, IV Titration 200 Amount Potassium Chloride 20 meq 200 In Water For Injection 1 100ml.bag @ 50 mls/hr IVPB ONCE ONE Rx#: [id number] Oral 720 625 Other: Voiding Method Toilet Toilet # Voids 2 2 - Exam Abdomen: Soft, nondistended, minimal tenderness diffusely - Labs CBC & Chem 7: 10/22/17 07:09 10/22/17 16:59 Labs: Microbiology - Last 24 Hours (Table) 10/17/17 01:09 Blood Culture - Final Blood No Growth after 144 hours Assessment and Plan (1) Constipation Narrative/Plan: Patient had her MRI today. Await those findings. Continue small volume meals. Recommend outpatient Gynonc evaluation after discharge. No further plans for my standpoint. I will sign off at this point. Please contact if needed. Current Visit: No Status: Acute Code(s): K59.00 - CONSTIPATION, UNSPECIFIED SNOMED Code(s): 28793571
--- NOTE | 2017-10-23 22:16 | P.PN ---
Progress Note - Text Progress Note Date: 10/23/17 Mrs. Galloway does not feel any differently since she underwent insertion of a right ureteral stent. She has experienced intermittent hematuria, and I reassured her that this is common in patients with ureteral stents. Her serum creatinine level has improved to 1.12. I stressed to her the fact that a ureteral stent cannot remain in place indefinitely. She will follow-up with me in approximately 6 weeks. Please notify me if I can be of any further assistance.
[2017-10-23] MEDS: ZOLPIDEM 10 MG TAB PO PRN (22:33)
[2017-10-23] MEDS: LACTATED RINGERS 1,000 ML IV SCH (23:29)
[2017-10-24] MEDS: DILTIAZEM CD 120 MG CAP.ER.24H PO SCH (07:56)
[2017-10-24] MEDS: PANTOPRAZOLE 40 MG TABLET PO SCH (07:56)
[2017-10-24] MEDS: RIVAROXABAN 20 MG TAB PO SCH (07:56)
[2017-10-24] MEDS: metroNIDAZOLE 500 MG TAB PO SCH ×4 (07:56→21:06)
[2017-10-24] MEDS: LISINOPRIL 20 MG TAB PO SCH (07:56)
[2017-10-24] MEDS: NITROGLYCERIN EXTENDED RELEASE 2.5 MG CAPSULE.ER PO SCH ×2 (07:57→21:05)
[2017-10-24] MEDS: POLYETHYLENE GLYCOL 3350 17 GM POWD.PACK PO SCH (07:57)
[2017-10-24] MEDS: cefTRIAXone IN SWFI 1,000 MG/10 ML SYRINGE IVP SCH (08:28)
[2017-10-24] MEDS: ONDANSETRON 4 MG TAB PO PRN (09:05)
--- NOTE | 2017-10-24 12:28 | PN ---
PROGRESS NOTE CHIEF COMPLAINT: CA of ovary. HISTORY OF PRESENT ILLNESS: This lady is still having quite a bit of lower abdominal discomfort. She has had the MRI of the brain report and results pending. She still has the diplopia. PHYSICAL EXAM: She has a left eye patched. Chest is clear and cardiac exam is normal. The abdomen is still operator in the lower aspect. IMPRESSION: 1. Carcinoma of the ovary. 2. Diplopia. PLAN: Await results of MRI. MMODL / IJN: [id number] /
[2017-10-24] MEDS: HYDROcodone/APAP 10-325MG 1 EACH TAB PO PRN ×2 (12:55→21:05)
[2017-10-24] MEDS: ALPRAZolam 0.25 MG TAB PO PRN ×2 (14:14→22:25)
[2017-10-24] MEDS: ONDANSETRON 4 MG/2 ML VIAL IVP PRN (19:47)
[2017-10-24] MEDS: diphenhydrAMINE 25 MG CAP PO SCH (21:04)
[2017-10-24] MEDS: ZOLPIDEM 10 MG TAB PO PRN (22:25)
[2017-10-24] MEDS: LACTATED RINGERS 1,000 ML IV SCH (22:43)
[2017-10-25] MEDS: cloNIDine HCL 0.1 MG TAB PO SCH ×3 (05:00→16:07)
[2017-10-25] MEDS: cefTRIAXone IN SWFI 1,000 MG/10 ML SYRINGE IVP SCH (09:37)
[2017-10-25] MEDS: metroNIDAZOLE 500 MG TAB PO SCH ×4 (09:37→23:03)
[2017-10-25] MEDS: POLYETHYLENE GLYCOL 3350 17 GM POWD.PACK PO SCH (09:37)
[2017-10-25] MEDS: RIVAROXABAN 20 MG TAB PO SCH (09:38)
[2017-10-25] MEDS: ESCITALOPRAM 20 MG TAB PO SCH (09:38)
[2017-10-25] MEDS: PANTOPRAZOLE 40 MG TABLET PO SCH (09:38)
[2017-10-25] MEDS: NITROGLYCERIN EXTENDED RELEASE 2.5 MG CAPSULE.ER PO SCH ×2 (09:38→20:50)
[2017-10-25] MEDS: DILTIAZEM CD 120 MG CAP.ER.24H PO SCH (09:38)
[2017-10-25] MEDS: LISINOPRIL 20 MG TAB PO SCH (09:38)
[2017-10-25 15:18] VITALS: RESP 16
[2017-10-25] MEDS: HYDROcodone/APAP 10-325MG 1 EACH TAB PO PRN (16:06)
--- NOTE | 2017-10-25 18:08 | PN ---
PROGRESS NOTE DATE OF SERVICE: 10/25/2017. CHIEF COMPLAINT: The patient's blood pressure spiked last night and medication program was increased. It has started to come down. REVIEW OF SYSTEMS: She denies any change in vision, chest pain, shortness of breath, etc. PHYSICAL EXAM: Head, ears, eyes, nose, mouth, and throat were normal. Chest is clear. Cardiac exam is normal. Abdomen is soft and slightly tender over the lower aspect. IMPRESSION: 1. Rising blood pressure. 2. Diplopia. 3. Carcinoma of the ovary. PLAN: 1. Control hypertension. 2. Ophthalmology evaluation. MMODL / IJN: [id number] /
[2017-10-25] MEDS: ONDANSETRON 4 MG TAB PO PRN (18:41)
[2017-10-25] MEDS: diphenhydrAMINE 25 MG CAP PO SCH (20:50)
--- NOTE | 2017-10-25 21:37 | P.CON ---
Consult Note - . Consult date: 10/25/17 Assessment/Plan:: Ophthalmology consultation for patient with a new history of diplopia. This 62 y /o patient with multiple problems, as noted by her history seems to have begun to experience an onset of diplopia the evening prior to underoing her ureteral stenting 20 October. she had bent over and noted that she was feeling funny and began to see double. Since the onset, there has been no improvement or worsening of the double vision symptoms. She describes it as a [id number] "crossed" double vision which is relieved when one of the eyes is covered. She has no prior history of eye problems, and as of her last eye examination about 3 years ago she's onyl had glasses primarily for reading; there are glasses for distance too, but she does not use then or necessarily find them beneficial. There is no history of pervious eye surgery and no childhood problem with amblyopia or patching that she can recall. She is currently wearing a make- shift eye shield over the left eye which relieves her symptoms. Exam VA w/o correction @ near 20/20-2 OD, 20/30 OS. IOP via Tonopen @ 1903 15 mm Hg OD, 14 mm Hg OS. Pupils: no APD normal response from 3.5 to 2 mm on bright light EOM: cover uncover & cross-cover marked ET right full with full ductions and left with restriction in left gaze. Definite overcompensation on left when performing versions. single vision on right gaze. Conjunctiva: white & quite OU Cornea: Clear OU AC deep & quiet OU Iris: without pathology, normal pupil function Lens:1+ nuclear sclerosis OU Undillated fundus exam w/ 90 D lens Optic nerve: Sharp, flat, pink C:D 0.15 OU Macula: quiet OU Vasculature: mild to moderate narrowing & crossing changes. Peripheral retina: Limited view without dilation, scattered nerve fiber layer hemorrhages OS>OD. particularly around the optic nerve. Assessment: 1) cranial nerve palsy, left eye, probably related to history hypertension , CNVI nerve is a a commonly tagged nerve in diabetes and hypertension due to it 's limited size and length. It is expected that the nerve will recover most if not all it's function, usually without about 3 months. 2) Hypertensive retinopathy. Hypertension has apparently become a significant issue since being hospitalized, however it is unlikely this problem has not been going on for some time due to the hemorrhages are in various stages of resolution. Plan: Will return to follow up while in the hospital if needed, but recommend a patch of which ever eye provides the most comfort using a pirate patch or similar vision blocking device. When discharged recommend returning to eye clinic for a complete exam, including a refraction with dilated funduscopic examination and updating glasses with a Fresnel lens to reduce symptoms while problem resolves over the next few months. Discussed findings with patient and expectations with time. She seems agreeable to this plan. Thank you for this consultation.
[2017-10-25] MEDS: ZOLPIDEM 10 MG TAB PO PRN (23:03)
[2017-10-26] MEDS: LACTATED RINGERS 1,000 ML IV SCH (01:02)
[2017-10-26] MEDS: cloNIDine HCL 0.1 MG TAB PO SCH ×2 (01:35→08:34)
[2017-10-26] MEDS: ALPRAZolam 0.25 MG TAB PO PRN (02:33)
[2017-10-26 05:51] VITALS: BP 144/81; PULSE 69; TEMP 98.1
[2017-10-26] MEDS: cefTRIAXone IN SWFI 1,000 MG/10 ML SYRINGE IVP SCH (08:33)
[2017-10-26] MEDS: PANTOPRAZOLE 40 MG TABLET PO SCH (08:33)
[2017-10-26] MEDS: ESCITALOPRAM 20 MG TAB PO SCH (08:34)
[2017-10-26] MEDS: DILTIAZEM CD 120 MG CAP.ER.24H PO SCH (08:34)
[2017-10-26] MEDS: NITROGLYCERIN EXTENDED RELEASE 2.5 MG CAPSULE.ER PO SCH (08:34)
[2017-10-26] MEDS: LISINOPRIL 20 MG TAB PO SCH (08:34)
[2017-10-26] MEDS: metroNIDAZOLE 500 MG TAB PO SCH (08:34)
[2017-10-26] MEDS: RIVAROXABAN 20 MG TAB PO SCH (08:35)
[2017-10-26] MEDS: POLYETHYLENE GLYCOL 3350 17 GM POWD.PACK PO SCH (12:43)
--- NOTE | 2017-10-26 15:03 | DS ---
DISCHARGE SUMMARY DATE OF DISCHARGE: October 26, 2017 CHIEF COMPLAINT: Urinary tract infection with acute kidney injury. HISTORY OF PRESENT ILLNESS AND PHYSICAL EXAM: Details of this lady's history and physical can be found in the initial workup. LABORATORY STUDIES: While she was in the hospital, she had laboratory studies, details of which can be found in the laboratory section of her chart. COURSE IN HOSPITAL: After admission, she was placed on bedrest, started on intravenous fluids and started on IV antibiotics. She was seen by Urology because of ureteral obstruction. She was followed by Oncology because of her carcinoma of the ovary in the pelvis. She was taken to the operating room for cystoscopy and stenting of the right ureter. She initially was thought to have a ileus or partial small-bowel obstruction, but this spontaneously resolved. She then developed problems with headaches and diplopia, it was determined that she had left 6 nerve palsy. By October 26 she seemed to be doing well enough that she could be discharged. She will go home on light activity about the house and usual diet. She will be kept on antibiotics. She will be seen in the office in several days. FINAL DIAGNOSES: 1. Urinary tract infection. 2. Acute kidney injury. 3. Hydronephrosis due to right ureteral obstruction. 4. Carcinoma of the ovary. 5. History of coronary artery disease. 6. 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 She is improved. MMODL / IJN: [id number] /
== END 2017-10-26 12:48 | disposition home or self-care (01) | DRG 690 ==
LOC: EC 23:51 → 5ONC 10-17 05:34
PROVIDERS: ADMIT Family Medicine; ATTEND Family Medicine
PROC: 0T768DZ Dilation of Right Ureter with Intraluminal Device, Via Natural or Artificial Opening Endoscopic (ICD-10-PCS; principal; 2017-10-20 11:30)
PROC: BT141ZZ Fluoroscopy of Kidneys, Ureters and Bladder using Low Osmolar Contrast (ICD-10-PCS; 2017-10-20 11:30)
DX: N13.6 Pyonephrosis (principal); C56.1 Malignant neoplasm of right ovary; K56.600 Partial intestinal obstruction, unspecified as to cause; N17.9 Acute kidney failure, unspecified; E11.9 Type 2 diabetes mellitus without complications; H35.039 Hypertensive retinopathy, unspecified eye; H49.22 Sixth [abducent] nerve palsy, left eye; I10 Essential (primary) hypertension; I25.10 Atherosclerotic heart disease of native coronary artery without angina pectoris; K21.9 Gastro-esophageal reflux disease without esophagitis; K76.0 Fatty (change of) liver, not elsewhere classified; R79.1 Abnormal coagulation profile; F32.9 Major depressive disorder, single episode, unspecified; F41.9 Anxiety disorder, unspecified; R51 Headache; R31.9 Hematuria, unspecified; R11.0 Nausea; K59.00 Constipation, unspecified; Z90.710 Acquired absence of both cervix and uterus; Z86.718 Personal history of other venous thrombosis and embolism; Z95.5 Presence of coronary angioplasty implant and graft; Z79.01 Long term (current) use of anticoagulants; Z79.899 Other long term (current) drug therapy; Z66 Do not resuscitate; Z88.5 Allergy status to narcotic agent; Z88.0 Allergy status to penicillin; Z88.8 Allergy status to other drugs, medicaments and biological substances; Z88.1 Allergy status to other antibiotic agents; Z91.041 Radiographic dye allergy status; Z90.49 Acquired absence of other specified parts of digestive tract; Z90.722 Acquired absence of ovaries, bilateral; Z87.440 Personal history of urinary (tract) infections; Z83.3 Family history of diabetes mellitus; Z82.3 Family history of stroke; Z80.1 Family history of malignant neoplasm of trachea, bronchus and lung; Z82.0 Family history of epilepsy and other diseases of the nervous system
CPT/HCPCS: 36415; 70450; 70553; 74176; 74250; 74420; 80048; 80053; 81001; 82150; 83516; 83519; 83605; 83690; 84132; 84484; 85025; 85379; 85610; 85730; 87040; 87086; 93005; 93880; 95816; 96361; 96365; 96367; 96375; 96376; 99285

== ENCOUNTER 2017-10-27 21:48 | Inpatient (IN) | payer BC ==
[2017-10-27] MEDS ORDERED: KETOROLAC 30 MG/ML 1 ML VIAL IVP STA (22:03)
[2017-10-27] MEDS ORDERED: ONDANSETRON 4 MG/2 ML VIAL IVP STA ×2 (22:03→23:56)
--- NOTE | 2017-10-27 22:39 | ED ---
Abdominal Pain HPI - General Chief Complaint: Abdominal Pain Stated Complaint: Abd pain Time Seen by Provider: 10/27/17 21:55 Source: patient, family, RN notes reviewed Mode of arrival: wheelchair Limitations: no limitations - History of Present Illness Initial Comments: This a 62-year-old female presents emergency Department chief complaint abdominal pain, abdominal bloating and distention. Patient states that she recently spent a week in the hospital for urosepsis and obstructed right ureter. Patient had a stent placed by urology. Patient states that she has no flank pain or any back pain. Patient does have ovarian cancer with masses. They believe that the masses pressing on her bowel and ureter. Patient states this pain is different she had before. She admits to some nausea no vomiting. She has had very little stool output. She states that she still has blood noted in her urine denies any dysuria. Patient reports no fever no night sweats. - Related Data Home Medications Medication Instructions Recorded Confirmed ALPRAZolam [Xanax] 0.25 mg PO TID PRN 08/25/14 10/17/17 Diltiazem HCl [Diltiazem 24Hr ER] 120 mg PO DAILY 08/25/14 10/17/17 Escitalopram [Lexapro] 20 mg PO DAILY 08/25/14 10/17/17 HYDROcodone/APAP 10-325MG [[place] 1 tab PO QID PRN 08/25/14 10/17/17 10-325] Rivaroxaban [Xarelto] 20 mg PO DAILY 10/14/14 10/17/17 Nitroglycerin Sl Tabs [Nitrostat] 0.4 mg PO Q5M PRN 10/05/15 10/17/17 Ondansetron HCl [Zofran] 8 mg PO BID PRN 10/05/15 10/17/17 Zolpidem [Ambien] 10 mg PO HS PRN 08/04/16 10/17/17 Polyethylene Glycol 3350 [Miralax] 17 gm PO DAILY 10/05/17 10/17/17 diphenhydrAMINE HCL [Benadryl] 25 mg PO HS 10/05/17 10/17/17 Ergocalciferol (Vitamin D2) 50,000 unit PO Q30D 10/17/17 10/17/17 [Vitamin D2] Esomeprazole Magnesium [NexIUM 20 mg PO DAILY 10/17/17 10/17/17 24Hr] Gabapentin [Neurontin] 300 mg PO QID PRN 10/17/17 10/17/17 Previous Rx's Medication Instructions Recorded Nitroglycerin Extended Release 2.5 mg PO BID capsule.er 08/28/14 [Nitro-Bid] Cephalexin [Keflex] 500 mg PO Q6HR #60 cap 10/26/17 Lisinopril [Zestril] 40 mg PO DAILY #30 tab 10/26/17 Pantoprazole [Protonix] 40 mg PO AC-BRKFST #30 tablet. 10/26/17 cloNIDine HCL [Catapres] 0.1 mg PO TID #90 tab 10/26/17 Allergies Allergy/AdvReac Type Severity Reaction Status Date / Time adhesive Allergy Rash/Hives Verified 10/27/17 21:54 carboplatin Allergy Anaphylaxis Verified 10/27/17 21:54 iodine Allergy Rash/Hives Verified 10/27/17 21:54 Penicillins Allergy Rash/Hives Verified 10/27/17 21:54 codeine AdvReac Nausea & Verified 10/27/17 21:54 Vomiting morphine AdvReac Nausea & Verified 10/27/17 21:54 Vomiting Review of Systems ROS Statement: Those systems with pertinent positive or pertinent negative responses have been documented in the HPI. ROS Other: All systems not noted in ROS Statement are negative. Past Medical History Past Medical History: Cancer, Deep Vein Thrombosis (DVT), GERD/Reflux Additional Past Medical History / Comment(s): tmj, OVARIAN CANCER, urinary intractions, partial bowel obstruction History of Any Multi-Drug Resistant Organisms: None Reported Past Surgical History: Adenoidectomy, Appendectomy, Cholecystectomy, Heart Catheterization With Stent, Hysterectomy, Tonsillectomy Additional Past Surgical History / Comment(s): ovarian cancer with bilateral oopherectomy 2005; 2 open exploratory abdominal surgery,mediport placed 2011, stent Past Anesthesia/Blood Transfusion Reactions: No Reported Reaction Date of Last Stent Placement:: 2011 Past Psychological History: Anxiety, Depression Smoking Status: Never smoker Past Alcohol Use History: None Reported Past Drug Use History: None Reported - Past Family History Mother Family Medical History: Diabetes Mellitus, Dialysis Brother(s) Family Medical History: Cancer Additional Family Medical History / Comment(s): lung cancer- since passed Sister(s) Family Medical History: CVA/TIA Father Family Medical History: Neurologic Disorder Additional Family Medical History / Comment(s): alzheimers General Exam Limitations: no limitations General appearance: alert, in no apparent distress Neck exam: Present: normal inspection. Absent: tenderness, meningismus, lymphadenopathy Respiratory exam: Present: normal lung sounds bilaterally. Absent: respiratory distress, wheezes, rales, rhonchi, stridor Cardiovascular Exam: Present: regular rate, normal rhythm, normal heart sounds. Absent: systolic murmur, diastolic murmur, rubs, gallop, clicks GI/Abdominal exam: Present: soft, tenderness (Moderate to severe tenderness in lower abdomen), normal bowel sounds, other (Multiple old scars noted). Absent: distended, guarding, rebound, rigid Back exam: Present: full ROM. Absent: tenderness, CVA tenderness (R), CVA tenderness (L) Skin exam: Present: warm, dry, intact, normal color. Absent: rash Course Vital Signs 10/27/17 21:50 Temperature 98.6 F Pulse Rate 75 Respiratory 18 Rate Blood Pressure 147/82 O2 Sat by Pulse 97 Oximetry Medical Decision Making - Lab Data Result diagrams: 10/27/17 22:30 10/27/17 22:30 Lab Results 10/27/17 10/27/17 10/27/17 Range/Units 22:30 22:30 22:30 WBC 7.1 (3.8-10.6) k/uL RBC 4.19 (3.80-5.40) m/uL Hgb 11.4 (11.4-16.0) gm/dL Hct 34.9 (34.0-46.0) % MCV 83.2 (80.0-100.0) fL MCH 27.3 (25.0-35.0) pg MCHC 32.8 (31.0-37.0) g/dL RDW 16.7 H (11.5-15.5) % Plt Count 183 (150-450) k/uL Neutrophils % 63 % Lymphocytes % 27 % Monocytes % 6 % Eosinophils % 2 % Basophils % 1 % Neutrophils # 4.5 (1.3-7.7) k/uL Lymphocytes # 1.9 (1.0-4.8) k/uL Monocytes # 0.4 (0-1.0) k/uL Eosinophils # 0.1 (0-0.7) k/uL Basophils # 0.0 (0-0.2) k/uL Anisocytosis Slight PT (9.0-12.0) sec INR (<1.2) APTT (22.0-30.0) sec Sodium 138 (137-145) mmol/L Potassium 2.7 L* (3.5-5.1) mmol/L Chloride 99 (98-107) mmol/L Carbon Dioxide 32 H (22-30) mmol/L Anion Gap 7 mmol/L BUN 15 (7-17) mg/dL Creatinine 1.10 H (0.52-1.04) mg/dL Est GFR (CKD-EPI)AfAm 61 (>60 ml/min/1.73 sqM) Est GFR (CKD-EPI)NonAf 53 (>60 ml/min/1.73 sqM) Glucose 114 H (74-99) mg/dL Plasma Lactic Acid Chad 0.9 (0.7-2.0) mmol/L Calcium 8.9 (8.4-10.2) mg/dL Total Bilirubin 0.2 (0.2-1.3) mg/dL AST 29 (14-36) U/L ALT 27 (9-52) U/L Alkaline Phosphatase 64 (38-126) U/L Total Protein 6.2 L (6.3-8.2) g/dL Albumin 3.3 L (3.5-5.0) g/dL Amylase 51 (30-110) U/L Lipase 203 (23-300) U/L Urine Color Urine Appearance (Clear) Urine RBC (0-5) /hpf Urine WBC (0-5) /hpf Ur Squamous Epith Cells (0-4) /hpf Urine Bacteria (None) /hpf Urine Mucus (None) /hpf 10/27/17 10/27/17 Range/Units 22:30 23:17 WBC (3.8-10.6) k/uL RBC (3.80-5.40) m/uL Hgb (11.4-16.0) gm/dL Hct (34.0-46.0) % MCV (80.0-100.0) fL MCH (25.0-35.0) pg MCHC (31.0-37.0) g/dL RDW (11.5-15.5) % Plt Count (150-450) k/uL Neutrophils % % Lymphocytes % % Monocytes % % Eosinophils % % Basophils % % Neutrophils # (1.3-7.7) k/uL Lymphocytes # (1.0-4.8) k/uL Monocytes # (0-1.0) k/uL Eosinophils # (0-0.7) k/uL Basophils # (0-0.2) k/uL Anisocytosis PT 12.1 H (9.0-12.0) sec INR 1.3 H (<1.2) APTT 32.9 H (22.0-30.0) sec Sodium (137-145) mmol/L Potassium (3.5-5.1) mmol/L Chloride (98-107) mmol/L Carbon Dioxide (22-30) mmol/L Anion Gap mmol/L BUN (7-17) mg/dL Creatinine (0.52-1.04) mg/dL Est GFR (CKD-EPI)AfAm (>60 ml/min/1.73 sqM) Est GFR (CKD-EPI)NonAf (>60 ml/min/1.73 sqM) Glucose (74-99) mg/dL Plasma Lactic Acid Chad (0.7-2.0) mmol/L Calcium (8.4-10.2) mg/dL Total Bilirubin (0.2-1.3) mg/dL AST (14-36) U/L ALT (9-52) U/L Alkaline Phosphatase (38-126) U/L Total Protein (6.3-8.2) g/dL Albumin (3.5-5.0) g/dL Amylase (30-110) U/L Lipase (23-300) U/L Urine Color Red Urine Appearance Bloody H (Clear) Urine RBC >182 H (0-5) /hpf Urine WBC >182 H (0-5) /hpf Ur Squamous Epith Cells 15 H (0-4) /hpf Urine Bacteria Occasional H (None) /hpf Urine Mucus Rare H (None) /hpf Disposition Clinical Impression: Abdominal pain, UTI (urinary tract infection), Abdominal mass, Hypokalemia, Hematuria, Ileus Disposition: ADMITTED IP TO THIS HOSP Condition: Fair Referrals: Kevin Metzger MD [Primary Care Provider] - 1-2 days
[2017-10-27 22:41] LABS: Anisocytosis Slight; Basophils % (A) 1 %; Eosinophils # (A) 0.1 k/uL (0-0.7); Eosinophils % (A) 2 %; HCT 34.9 % (34.0-46.0); HGB 11.4 gm/dL (11.4-16.0); Lymphocytes # (A) 1.9 k/uL (1.0-4.8); Lymphocytes % (A) 27 %; MCH 27.3 pg (25.0-35.0); MCHC 32.8 g/dL (31.0-37.0); MCV 83.2 fL (80.0-100.0); Mean Platelet Volume 9.5; Monocytes # (A) 0.4 k/uL (0-1.0); Monocytes % (A) 6 %; Neutrophils # (A) 4.5 k/uL (1.3-7.7); Neutrophils % (A) 63 %; Platelet Count 183 k/uL (150-450); RBC 4.19 m/uL (3.80-5.40); RDW 16.7 % (11.5-15.5); WBC 7.1 k/uL (3.8-10.6)
[2017-10-27 22:50] LABS: Albumin 3.3 g/dL (3.5-5.0); Calcium 8.9 mg/dL (8.4-10.2); INR 1.3 (<1.2); Partial Thromboplastin Time 32.9 sec (22.0-30.0); Prothrombin Time 12.1 sec (9.0-12.0); Total Bilirubin 0.2 mg/dL (0.2-1.3); Total Protein 6.2 g/dL (6.3-8.2)
[2017-10-27 22:54] LABS: Potassium 2.7 mmol/L (3.5-5.1)
--- NOTE | 2017-10-27 23:30 | XR ---
EXAMINATION TYPE: XR KUB DATE OF EXAM: 10/27/2017 COMPARISON: 10/05/2017 HISTORY: Abdominal pain TECHNIQUE: 2 views FINDINGS: 2 upright views were obtained there is a right double-J ureteral stent noted. There are cli ps from cholecystectomy. There are multiple surgical clips over the abdomen. There are a few gas fill ed loops of small bowel in the mid abdomen. I see no sign of free air. There is no evidence of a mass . IMPRESSION: There is probably some small bowel ileus. This is similar to old exam. No free air. Right ureteral stent is new. This is probably in good position.
[2017-10-27 23:49] LABS: Bacteria,Urine Occasional /hpf; Mucus,Urine Rare /hpf; RBC,Urine >182 /hpf (0-5); Squamous Epithelial Cell,Urine 15 /hpf (0-4); WBC,Urine >182 /hpf (0-5)
[2017-10-27 23:51] LABS: Appearance,Urine Bloody (Clear); Color,Urine Red
[2017-10-27] MEDS ORDERED: cefTRIAXone IN SWFI 1,000 MG/10 ML SYRINGE IVP STA (23:56)
[2017-10-27] MEDS ORDERED: HYDROmorphone 0.5 MG/0.5 ML SYRINGE IVP STA (23:56)
[2017-10-27] MEDS ORDERED: POTASSIUM CHLORIDE ER 20 MEQ TAB.ER PO STA (23:57)
[2017-10-27] MEDS ORDERED: ACETAMINOPHEN TAB 325 MG TAB PO PRN (23:58)
[2017-10-27] MEDS ORDERED: NALOXONE 0.4 MG/ML 1 ML VIAL IV PRN (23:58)
[2017-10-28] MEDS: SODIUM CHLORIDE 0.9% 1,000 ML IV SCH ×3 (00:26→16:03)
[2017-10-28 01:39] VITALS: BMI 26.6
[2017-10-28] MEDS: HYDROmorphone 0.5 MG/0.5 ML SYRINGE IVP PRN ×5 (02:07→22:12)
[2017-10-28] MEDS: ONDANSETRON 4 MG/2 ML VIAL IVP PRN ×2 (07:16→18:26)
[2017-10-28 07:21] LABS: Albumin 2.7 g/dL (3.5-5.0); Calcium 8.3 mg/dL (8.4-10.2); Potassium 3.1 mmol/L (3.5-5.1); Total Bilirubin 0.2 mg/dL (0.2-1.3)
[2017-10-28] MEDS ORDERED: Potassium Replacement Protocol 1 EACH MISC MISCELLANE PRN (07:40)
[2017-10-28] MEDS: POTASSIUM CHLORIDE ER 20 MEQ TAB.ER PO SCH ×2 (08:40→10:46)
[2017-10-28] MEDS ORDERED: ALPRAZolam 0.25 MG TAB PO PRN ×2 (10:37→12:05)
[2017-10-28] MEDS ORDERED: GABAPENTIN 300 MG CAP PO PRN (12:05)
[2017-10-28] MEDS ORDERED: NITROGLYCERIN SL TABS 0.4 MG TAB SUBLINGUAL PRN (12:05)
[2017-10-28] MEDS ORDERED: HYDROcodone/APAP 10-325MG 1 EACH TAB PO PRN (12:05)
[2017-10-28] MEDS ORDERED: ESOMEPRAZOLE MAGNESIUM 20 MG PO SCH (12:15)
[2017-10-28] MEDS: RIVAROXABAN 20 MG TAB PO SCH (13:30)
[2017-10-28] MEDS: CEPHALEXIN 500 MG CAP PO SCH ×3 (13:31→23:20)
[2017-10-28] MEDS: cloNIDine HCL 0.1 MG TAB PO SCH ×2 (16:04→21:55)
--- NOTE | 2017-10-28 17:14 | PN ---
PROGRESS NOTE CHIEF COMPLAINT: Low abdominal pain and carcinoma of the ovary. HISTORY OF PRESENT ILLNESS: This lady is still having right great deal pain. Urinary tract infection will be treated. She has had no vomiting or fever. PHYSICAL EXAM: She is slightly pale. Chest is clear. Cardiac exam is normal. The abdomen is soft and tender in the lower aspect and in the right lower quadrant. IMPRESSION: 1. Carcinoma of the ovary. 2. Urinary tract infection. 3. Hypokalemia. PLAN: Potassium has been replaced and she is up to 3.1. We will consider a discharge plan and possibly changing her status to one of palliative care. MMODL / IJN: [id number] /
--- NOTE | 2017-10-28 17:35 | HP ---
PROGRESS NOTE CHIEF COMPLAINT: Intractable abdominal pain. HISTORY OF PRESENT ILLNESS: This lady was just discharged and came back to the emergency room because of pain. She has analgesics at home. She was also found to have a urinary tract infection and she had gross hematuria. Her potassium is low also at 2.7. REVIEW OF SYSTEMS: She has had no other complaints. She has had no chest pain, fever and chills, vomiting, diarrhea, etc. Past medical history, family history personal and social history are all unchanged. PHYSICAL EXAMINATION: Blood pressure is 148/90 with a pulse of 116, respirations of 40 and she is afebrile. In general, she appeared to be extremely agitated. Skin was dry. Head, ears, eyes, nose, mouth and throat were normal. The chest is clear to auscultation. Cardiac is normal with sinus tachycardia and the abdomen is soft and she is tender in the lower aspects. EXTREMITIES: Normal. Neurological is intact. She is admitted to the hospital with the diagnoses. 1. Ovarian carcinoma. 2. Urinary tract infection. 3. Hydronephrosis. 4. Possible impending small-bowel obstruction. 5. Hypokalemia. PLAN: 1. Correct electrolyte imbalance. 2. Treat urinary tract infection. 3. Talked to the patient about palliative care or hospice. MMODL / IJN: [id number] /
[2017-10-28] MEDS: NITROGLYCERIN EXTENDED RELEASE 2.5 MG CAPSULE.ER PO SCH (21:55)
[2017-10-28] MEDS: diphenhydrAMINE 25 MG CAP PO SCH (21:55)
[2017-10-29] MEDS: HYDROmorphone 0.5 MG/0.5 ML SYRINGE IVP PRN ×6 (01:38→21:17)
[2017-10-29] MEDS: HYDROcodone/APAP 5-325MG 1 EACH TAB PO PRN (03:08)
[2017-10-29] MEDS: SODIUM CHLORIDE 0.9% 1,000 ML IV SCH ×2 (03:15→17:04)
[2017-10-29] MEDS: CEPHALEXIN 500 MG CAP PO SCH ×3 (05:54→17:04)
[2017-10-29] MEDS: PANTOPRAZOLE 40 MG TABLET PO SCH (08:32)
[2017-10-29] MEDS: cloNIDine HCL 0.1 MG TAB PO SCH ×3 (08:32→21:04)
[2017-10-29] MEDS: RIVAROXABAN 20 MG TAB PO SCH (08:32)
[2017-10-29] MEDS: DILTIAZEM CD 120 MG CAP.ER.24H PO SCH (08:33)
[2017-10-29] MEDS: NITROGLYCERIN EXTENDED RELEASE 2.5 MG CAPSULE.ER PO SCH ×2 (08:33→21:04)
[2017-10-29] MEDS: LISINOPRIL 20 MG TAB PO SCH (08:33)
[2017-10-29] MEDS: POLYETHYLENE GLYCOL 3350 17 GM POWD.PACK PO SCH ×2 (08:34→21:04)
[2017-10-29] MEDS: ESCITALOPRAM 20 MG TAB PO SCH (08:34)
--- NOTE | 2017-10-29 20:42 | PN ---
PROGRESS NOTE CHIEF COMPLAINT: Abdominal pain and CA of the ovary. HISTORY OF PRESENT ILLNESS: This lady is doing fairly well and her pain is reasonably controlled. Plan at this time will be to discharge her on Monday to allow her to get her appointment with her oncologist at [facility] on Monday. PHYSICAL EXAM: Her chest is clear. Cardiac exam is normal. The abdomen is still slightly tender in the lower aspect. IMPRESSION: Carcinoma of the ovary. PLAN: Control pain so she can be discharged on Monday to keep her appointment at [facility] Monday. MMODL / IJN: [id number] /
[2017-10-29] MEDS: diphenhydrAMINE 25 MG CAP PO SCH (21:04)
[2017-10-29] MEDS: ZOLPIDEM 5 MG TAB PO PRN (22:16)
[2017-10-30] MEDS: CEPHALEXIN 500 MG CAP PO SCH ×5 (00:14→23:42)
[2017-10-30] MEDS: HYDROmorphone 0.5 MG/0.5 ML SYRINGE IVP PRN ×3 (00:15→20:59)
[2017-10-30] MEDS: RIVAROXABAN 20 MG TAB PO SCH (08:25)
[2017-10-30] MEDS: LISINOPRIL 20 MG TAB PO SCH (08:26)
[2017-10-30] MEDS: NITROGLYCERIN EXTENDED RELEASE 2.5 MG CAPSULE.ER PO SCH ×2 (08:26→20:59)
[2017-10-30] MEDS: ESCITALOPRAM 20 MG TAB PO SCH (08:26)
[2017-10-30] MEDS: DILTIAZEM CD 120 MG CAP.ER.24H PO SCH (08:26)
[2017-10-30] MEDS: cloNIDine HCL 0.1 MG TAB PO SCH ×3 (08:27→20:59)
[2017-10-30] MEDS: PANTOPRAZOLE 40 MG TABLET PO SCH (08:27)
[2017-10-30] MEDS: HYDROcodone/APAP 5-325MG 1 EACH TAB PO PRN ×2 (08:32→13:43)
--- NOTE | 2017-10-30 12:29 | CDI ---
Last Revision, April 2017 Documentation Clarification Form Date: 10/30/2017 12:26:00 PM From: Julisa GreggMontanezSCOTT, CCDS Admit Date: 10/27/2017 11:51:00 PM Patient Name: Jesusita Galloway Visit Number: [id number] Discharge Date: ATTENTION: The Clinical Documentation Specialists (CDI) and [facility] Coding Staff appreciate your assistance in clarifying documentation. Please respond to the clarification below the line at the bottom and electronically sign. The CDI & [facility] Coding staff will review the response and follow-up if needed. Please note: Queries are made part of the Legal Health Record. If you have any questions, please contact the author of this message via ITS. Dr. Kevin Metzger: 62 yo female admitted with abdominal pain, bloating & distention with known ovarian CA. Patient history/risk factors: Ovarian CA, recently admitted with urosepsis & obstructed right ureter, stent placed by urology. Clinical Indicators: ED note Dx: Abdominal pain, UTI, Abdominal mass, Hypokalemia, hematuria & ileus. Attending PNs: Ovarian CA, UTI, Hydronephrosis, possible impending SBO & Hypokalemia. Vital Signs: LAB: UA: Red, bloody, RBC >182, WBC >182. KUB: Probably some small bowel ileus. Treatment: IV Toradol, IV Zofran, IV fl 75/hr, IV Dilaudid, IV Rocephin, K replacement. In your professional opinion, can you please clarify in your documentation the cause of the patient's abdominal pain? Abdominal pain due to: Urinary Tract Infection Ovarian CA Small Bowel Obstruction Other, please specify: Unable to determine Please continue to document in your progress notes and discharge summary in order to capture severity of illness and risk of mortality. Include clinical findings that support your diagnosis. MTDD
--- NOTE | 2017-10-30 15:48 | MISC ---
MISCELLANOUS REPORT QUERY: DATE OF ADMISSION: 10/27/17 Your asking abdominal pain due to: Unable to determine. I think it is a combination of urinary tract infection, small-bowel obstruction and ovarian carcinoma. MMDAVIONL / IJN: [id number] /
[2017-10-30] MEDS: SODIUM CHLORIDE 0.9% 1,000 ML IV SCH (17:01)
--- NOTE | 2017-10-30 18:16 | PN ---
PROGRESS NOTE DATE OF SERVICE: 10/30/17 CHIEF COMPLAINT: Urinary tract infection, ovarian carcinoma. HISTORY OF PRESENT ILLNESS: This lady has elected not to go home today. She has an appointment to come see us tomorrow. She is still in some significant pain. On top of that, her culture came back growing out vancomycin resistant enterococcus and she will be referred to Infectious Disease. PHYSICAL EXAM: She remains slightly pale. Chest is clear. Cardiac exam is normal and she is line tender in the lower aspects of the abdomen. IMPRESSION: 1. Urinary tract infection with VRE. 2. Ovarian carcinoma. 3. Renal failure. PLAN: No change in program except have her evaluated by Infectious Disease for management of her VRE. MMODL / IJN: [id number] /
[2017-10-30] MEDS ORDERED: DAPTOmycin 500 MG in SODIUM CHLORIDE 0.9% 50 ML IV SCH (19:45)
[2017-10-30] MEDS: ONDANSETRON 4 MG/2 ML VIAL IVP PRN (20:32)
[2017-10-30] MEDS: diphenhydrAMINE 25 MG CAP PO SCH (20:59)
[2017-10-30] MEDS: ZOLPIDEM 5 MG TAB PO PRN (23:45)
[2017-10-31] MEDS: SODIUM CHLORIDE 0.9% 1,000 ML IV SCH (06:11)
[2017-10-31] MEDS: CEPHALEXIN 500 MG CAP PO SCH (06:11)
[2017-10-31 06:37] VITALS: BP 133/77; PULSE 68; RESP 16; TEMP 99
[2017-10-31] MEDS: RIVAROXABAN 20 MG TAB PO SCH (07:46)
[2017-10-31] MEDS: DILTIAZEM CD 120 MG CAP.ER.24H PO SCH (07:47)
[2017-10-31] MEDS: ESCITALOPRAM 20 MG TAB PO SCH (07:47)
[2017-10-31] MEDS: PANTOPRAZOLE 40 MG TABLET PO SCH (07:47)
[2017-10-31] MEDS: cloNIDine HCL 0.1 MG TAB PO SCH (07:47)
[2017-10-31] MEDS: NITROGLYCERIN EXTENDED RELEASE 2.5 MG CAPSULE.ER PO SCH (07:47)
[2017-10-31] MEDS: LISINOPRIL 20 MG TAB PO SCH (07:47)
--- NOTE | 2017-10-31 14:14 | DS ---
DISCHARGE SUMMARY CHIEF COMPLAINT: Abdominal pain. HISTORY OF PRESENT ILLNESS AND PHYSICAL EXAM: Details of this lady's history and physical can be found in the initial workup. LABORATORY STUDIES: While she was in a hospital, she had laboratory studies, details which can be found in the laboratory section of chart. COURSE IN HOSPITAL: After admission, she was placed on bedrest, started on intravenous fluids, and antibiotics for urinary tract infection. She was seen by Urology and a stent was placed in the right ureter. She continued to have mild lower abdominal discomfort and her analgesic program was gradually increased. She did eventually grow out of VRE and this was a day before she was to be seen at [facility] by her oncologist. She will be discharged on the morning of the and go straight to [facility]. FINAL DIAGNOSES: 1. Lower abdominal pain. 2. Hydronephrosis. 3. Partial small-bowel obstruction. 4. Ovarian cancer recurrence in pelvis. 5. Vancomycin-resistant Enterococcus (VRE) cystitis. 6. History of coronary artery disease. 7. Depression. OPERATIONS: Cystoscopy and stent placement. CONSULTATIONS: Surgery. CONDITION: She is improved. MMODL / IJN: [id number] /
[2017-10-31] MEDS ORDERED: POLYETHYLENE GLYCOL 3350 17 GM POWD.PACK PO SCH (21:00)
== END 2017-10-31 11:47 | disposition home or self-care (01) | DRG 844 ==
LOC: EC 21:48 → 5ONC 23:51
PROVIDERS: ADMIT Family Medicine; ATTEND Family Medicine
DX: C79.89 Secondary malignant neoplasm of other specified sites (principal); K56.600 Partial intestinal obstruction, unspecified as to cause; N13.30 Unspecified hydronephrosis; N30.91 Cystitis, unspecified with hematuria; E87.6 Hypokalemia; F32.9 Major depressive disorder, single episode, unspecified; I25.10 Atherosclerotic heart disease of native coronary artery without angina pectoris; K21.9 Gastro-esophageal reflux disease without esophagitis; B95.2 Enterococcus as the cause of diseases classified elsewhere; Z16.21 Resistance to vancomycin; F41.9 Anxiety disorder, unspecified; Z79.01 Long term (current) use of anticoagulants; Z79.899 Other long term (current) drug therapy; Z88.5 Allergy status to narcotic agent; Z88.0 Allergy status to penicillin; Z88.8 Allergy status to other drugs, medicaments and biological substances; Z91.048 Other nonmedicinal substance allergy status; Z90.710 Acquired absence of both cervix and uterus; Z85.43 Personal history of malignant neoplasm of ovary; Z86.718 Personal history of other venous thrombosis and embolism; Z90.49 Acquired absence of other specified parts of digestive tract; Z95.5 Presence of coronary angioplasty implant and graft; Z90.722 Acquired absence of ovaries, bilateral; Z80.1 Family history of malignant neoplasm of trachea, bronchus and lung; Z83.3 Family history of diabetes mellitus; Z82.0 Family history of epilepsy and other diseases of the nervous system; Z82.3 Family history of stroke
CPT/HCPCS: 36415; 74018; 80053; 81001; 82150; 83605; 83690; 85025; 85610; 85730; 87040; 87077; 87086; 87186; 96374; 96375; 96376; 99285

== ENCOUNTER 2017-12-21 10:13 | Inpatient (IN) | payer BC ==
[2017-12-21] MEDS ORDERED: SODIUM CHLORIDE 0.9% 1,000 ML IV STA (10:27)
[2017-12-21] MEDS ORDERED: ONDANSETRON 4 MG/2 ML VIAL IVP STA (10:27)
--- NOTE | 2017-12-21 10:32 | ED ---
General Adult HPI - General Chief complaint: Abdominal Pain Stated complaint: CONSTIPATION, UTI Time Seen by Provider: 12/21/17 10:20 Source: patient, RN notes reviewed, old records reviewed Mode of arrival: wheelchair Limitations: no limitations - History of Present Illness Initial comments: Patient is a 62-year-old female presenting to the emergency room today with a chief complaint of constipation and UTI. Patient does admit that she's also had nausea vomiting. 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 Patient states was unable have chemo this past week because of a urinary tract infection that was diagnosed on Monday when she went to oncologist toy maker antibiotics. Unsure the name of the antibiotic that she's on but states still having increased frequency and some discomfort. Does admit to some cramping in the abdomen at times. States that she is passing gas. States her bowel movement last 5 days. Patient states she has been trying laxatives with little relief. Patient denies any symptoms. Patient denies any recent fever, chills, shortness of breath, chest pain, back pain, numbness or tingling, headaches or visual changes, or any other complaints. - Related Data Home Medications Medication Instructions Recorded Confirmed ALPRAZolam [Xanax] 0.25 mg PO HS PRN 08/25/14 12/21/17 Diltiazem HCl [Diltiazem 24Hr ER] 120 mg PO DAILY 08/25/14 12/21/17 Polyethylene Glycol 3350 [Miralax] 17 gm PO BID PRN 10/05/17 12/21/17 Gabapentin [Neurontin] 300 mg PO TID 10/17/17 12/21/17 Acetaminophen Tab [Tylenol Tab] 325 mg PO Q4H 12/21/17 12/21/17 Antibiotic (Unknown) 1 tab PO BID 12/21/17 12/21/17 Escitalopram [Lexapro] 10 mg PO DAILY 12/21/17 12/21/17 Ferrous Sulfate [Feosol] 325 mg PO DAILY 12/21/17 12/21/17 Hydrocodone/Acetaminophen [[employer] 1 tab PO Q4HR PRN 12/21/17 12/21/17 5-325] Ondansetron HCl [Zofran] 8 mg PO Q6H PRN 12/21/17 12/21/17 cloNIDine HCL [Catapres] 0.1 mg PO DAILY 12/21/17 12/21/17 Allergies Allergy/AdvReac Type Severity Reaction Status Date / Time adhesive Allergy Rash/Hives Verified 12/21/17 10:33 carboplatin Allergy Anaphylaxis Verified 12/21/17 10:33 iodine Allergy Rash/Hives Verified 12/21/17 10:33 Penicillins Allergy Rash/Hives Verified 12/21/17 10:33 codeine AdvReac Nausea & Verified 12/21/17 10:33 Vomiting morphine AdvReac Nausea & Verified 12/21/17 10:33 Vomiting Review of Systems ROS Statement: Those systems with pertinent positive or pertinent negative responses have been documented in the HPI. ROS Other: All systems not noted in ROS Statement are negative. Past Medical History Past Medical History: Cancer, Deep Vein Thrombosis (DVT), GERD/Reflux Additional Past Medical History / Comment(s): tmj, OVARIAN CANCER, urinary intractions, partial bowel obstruction, kidney stone History of Any Multi-Drug Resistant Organisms: VRE Date of last positivie culture/infection: 10/27/17 MDRO Source:: urine Past Surgical History: Adenoidectomy, Appendectomy, Cholecystectomy, Heart Catheterization With Stent, Hysterectomy, Tonsillectomy Additional Past Surgical History / Comment(s): ovarian cancer with bilateral oopherectomy 2005; 2 open exploratory abdominal surgery,mediport placed 2011, ureter stent right ureter Past Anesthesia/Blood Transfusion Reactions: No Reported Reaction Date of Last Stent Placement:: 2011 Past Psychological History: Anxiety, Depression Smoking Status: Never smoker Past Alcohol Use History: None Reported Past Drug Use History: None Reported - Past Family History Mother Family Medical History: Diabetes Mellitus, Dialysis Brother(s) Family Medical History: Cancer Additional Family Medical History / Comment(s): lung cancer- since passed Sister(s) Family Medical History: CVA/TIA Father Family Medical History: Neurologic Disorder Additional Family Medical History / Comment(s): alzheimers General Exam - General Exam Comments Initial Comments: General: The patient is awake and alert, in no distress, and does not appear acutely ill. Eye: Pupils are equal, round and reactive to light, extra-ocular movements are intact. No nystagmus. There is normal conjunctiva bilaterally. No signs of icterus. Ears, nose, mouth and throat: There are moist mucous membranes and no oral lesions. Neck: The neck is supple, there is no tenderness or JVD. Cardiovascular: There is a regular rate and rhythm. No murmur, rub or gallop is appreciated. Respiratory: Lungs are clear to auscultation, respirations are non-labored, breath sounds are equal. No wheezes, stridor, rales, or rhonchi. Gastrointestinal: Soft, non-distended. There is no rebound or guarding present. No CVA tenderness. Bowel sounds are unremarkable. Musculoskeletal: Normal ROM, no tenderness. Strength 5/5. Sensation intact. Pulses equal bilaterally 2+. Neurological: A&O x 3. CN II-XII intact, There are no obvious motor or sensory deficits. Coordination appears grossly intact. Speech is normal. Skin: Skin is warm and dry and no rashes or lesions are noted. Psychiatric: Cooperative, appropriate mood & affect, normal judgment. Limitations: no limitations Course Vital Signs 12/21/17 10:16 Temperature 98.7 F Pulse Rate 72 Respiratory 18 Rate Blood Pressure 110/72 O2 Sat by Pulse 95 Oximetry Medical Decision Making - Medical Decision Making Patient's labs been reviewed does show hemoglobin 8.5. Patient does admit that she's had blood transfusions in the past. Patient states still having some symptoms of dysuria. Urinalysis does show 19 white cells. Has been on antibiotics last 2 days. Patient states he increased abdominal discomfort. History of cancer. Patient will be admitted for outpatient treatment failure of UTI started on antibiotics in the emergency room cultures are pending. - Lab Data Result diagrams: 12/21/17 10:55 12/21/17 10:55 Lab Results 12/21/17 12/21/17 12/21/17 Range/Units 10:55 10:55 10:55 WBC 5.5 (3.8-10.6) k/uL RBC 3.02 L (3.80-5.40) m/uL Hgb 8.5 L D (11.4-16.0) gm/dL Hct 27.0 L (34.0-46.0) % MCV 89.4 D (80.0-100.0) fL MCH 28.2 (25.0-35.0) pg MCHC 31.5 (31.0-37.0) g/dL RDW 18.8 H (11.5-15.5) % Plt Count 322 (150-450) k/uL Neutrophils % 57 % Lymphocytes % 31 % Monocytes % 8 % Eosinophils % 1 % Basophils % 0 % Neutrophils # 3.1 (1.3-7.7) k/uL Lymphocytes # 1.7 (1.0-4.8) k/uL Monocytes # 0.5 (0-1.0) k/uL Eosinophils # 0.1 (0-0.7) k/uL Basophils # 0.0 (0-0.2) k/uL Hypochromasia Slight Anisocytosis Slight Sodium 140 (137-145) mmol/L Potassium 4.4 (3.5-5.1) mmol/L Chloride 106 (98-107) mmol/L Carbon Dioxide 27 (22-30) mmol/L Anion Gap 7 mmol/L BUN 15 (7-17) mg/dL Creatinine 0.90 (0.52-1.04) mg/dL Est GFR (CKD-EPI)AfAm 79 (>60 ml/min/1.73 sqM) Est GFR (CKD-EPI)NonAf 68 (>60 ml/min/1.73 sqM) Glucose 98 (74-99) mg/dL Calcium 9.4 (8.4-10.2) mg/dL Total Bilirubin 0.3 (0.2-1.3) mg/dL AST 25 (14-36) U/L ALT 25 (9-52) U/L Alkaline Phosphatase 85 (38-126) U/L Total Protein 6.1 L (6.3-8.2) g/dL Albumin 3.3 L (3.5-5.0) g/dL Amylase 45 (30-110) U/L Lipase 79 (23-300) U/L Urine Color Light Yellow Urine Appearance Clear (Clear) Urine pH 5.5 (5.0-8.0) Ur Specific [place] 1.008 (1.001-1.035) Urine Protein 1+ H (Negative) Urine Glucose (UA) Negative (Negative) Urine Ketones Negative (Negative) Urine Blood Negative (Negative) Urine Nitrite Negative (Negative) Urine Bilirubin Negative (Negative) Urine Urobilinogen <2.0 (<2.0) mg/dL Ur Leukocyte Esterase Small H (Negative) Urine RBC 1 (0-5) /hpf Urine WBC 19 H (0-5) /hpf Urine Bacteria Rare H (None) /hpf Hyaline Casts 1 (0-2) /lpf Urine Mucus Rare H (None) /hpf Disposition Clinical Impression: UTI (urinary tract infection), Failure of outpatient treatment Disposition: ADMITTED IP TO THIS HOSP Condition: Stable Is patient prescribed a controlled substance at d/c from ED?: No Referrals: Kevin Metzger MD [Primary Care Provider] - 1-2 days Time of Disposition: 12:32
--- NOTE | 2017-12-21 10:48 | XR ---
EXAMINATION TYPE: XR KUB DATE OF EXAM: 12/21/2017 10:37 AM CLINICAL HISTORY: Lower abdominal pain and vomiting TECHNIQUE: Two Upright KUB images of the abdomen are obtained. COMPARISON: CT abdomen and pelvis October 17, 2017. Abdominal x-ray October 27, 2017. FINDINGS: There is some paucity of bowel gas. Gas is seen in nondistended stomach. Scattered gas is n oted in nondistended small and large bowel loops. Cholecystectomy clips are appreciated. There is red emonstration of double-J right ureter stent. Displaced clips into pelvis are redemonstrated. There ar e additional scattered clips throughout the mid to lower abdomen corresponds to retroperitoneal clips on CT. Lung bases are clear. Visualized osseous structures are intact. IMPRESSION: Overall nonobstructive bowel gas pattern currently.
[2017-12-21 11:18] LABS: Anisocytosis Slight; Basophils % (A) 0 %; Eosinophils # (A) 0.1 k/uL (0-0.7); Eosinophils % (A) 1 %; Hypochromasia Slight; Lymphocytes # (A) 1.7 k/uL (1.0-4.8); Lymphocytes % (A) 31 %; MCH 28.2 pg (25.0-35.0); MCHC 31.5 g/dL (31.0-37.0); Mean Platelet Volume 7.7; Monocytes # (A) 0.5 k/uL (0-1.0); Monocytes % (A) 8 %; Neutrophils # (A) 3.1 k/uL (1.3-7.7); Neutrophils % (A) 57 %; Platelet Count 322 k/uL (150-450); RBC 3.02 m/uL (3.80-5.40); RDW 18.8 % (11.5-15.5); WBC 5.5 k/uL (3.8-10.6)
[2017-12-21 11:24] LABS: Appearance,Urine Clear (Clear); Bacteria,Urine Rare /hpf; Bilirubin,Urine Negative (Negative); Blood,Urine Negative (Negative); Color,Urine Light Yellow; Glucose,Urine (UA) Negative (Negative); Hyaline Casts,Urine 1 /lpf (0-2); Ketones,Urine Negative (Negative); Leukocyte Esterase,Urine Small (Negative); Mucus,Urine Rare /hpf; Nitrite,Urine Negative (Negative); PH, Urine 5.5 (5.0-8.0); Protein,Urine 1+ (Negative); RBC,Urine 1 /hpf (0-5); Specific Gravity,Urine 1.008 (1.001-1.035); Urobilinogen,Urine <2.0 mg/dL (<2.0); WBC,Urine 19 /hpf (0-5)
[2017-12-21 11:30] LABS: Albumin 3.3 g/dL (3.5-5.0); Calcium 9.4 mg/dL (8.4-10.2); HGB 8.5 gm/dL (11.4-16.0); MCV 89.4 fL (80.0-100.0); Potassium 4.4 mmol/L (3.5-5.1); Total Bilirubin 0.3 mg/dL (0.2-1.3); Total Protein 6.1 g/dL (6.3-8.2)
[2017-12-21] MEDS ORDERED: cefTRIAXone IN SWFI 1,000 MG/10 ML SYRINGE IVP STA (12:16)
[2017-12-21] MEDS ORDERED: ACETAMINOPHEN TAB 325 MG TAB PO PRN (12:33)
[2017-12-21] MEDS ORDERED: LORazepam 2 MG/ML INJ IV PRN (12:33)
[2017-12-21] MEDS ORDERED: NALOXONE 0.4 MG/ML 1 ML VIAL IV PRN (12:33)
[2017-12-21] MEDS ORDERED: SODIUM CHLORIDE 0.9% 1,000 ML IV ONE (12:33)
[2017-12-21] MEDS: HYDROmorphone 1 MG/ML 1 ML SYRINGE IVP PRN ×3 (13:00→20:46)
[2017-12-21 15:05] VITALS: BMI 22.4
[2017-12-21] MEDS ORDERED: ONDANSETRON 4 MG TAB PO PRN (17:36)
[2017-12-21] MEDS ORDERED: POLYETHYLENE GLYCOL 3350 17 GM POWD.PACK PO PRN (17:36)
[2017-12-21] MEDS ORDERED: MAGNESIUM HYDROXIDE 2,400 MG/10 ML CUP PO PRN (17:36)
[2017-12-21] MEDS ORDERED: ACETAMINOPHEN TAB 325 MG TAB PO SCH (17:45)
[2017-12-21] MEDS: ESCITALOPRAM 10 MG TAB PO SCH (18:23)
[2017-12-21] MEDS: DILTIAZEM CD 120 MG CAP.ER.24H PO SCH (18:23)
[2017-12-21] MEDS: cloNIDine HCL 0.1 MG TAB PO SCH (18:23)
[2017-12-21] MEDS: FERROUS SULFATE 325 MG TAB PO SCH (18:23)
[2017-12-21] MEDS: GABAPENTIN 300 MG CAP PO SCH (20:50)
[2017-12-21] MEDS: ALPRAZolam 0.25 MG TAB PO PRN (20:56)
[2017-12-22] MEDS: HYDROmorphone 1 MG/ML 1 ML SYRINGE IVP PRN ×5 (00:29→21:09)
[2017-12-22] MEDS: ONDANSETRON 4 MG/2 ML VIAL IVP PRN ×2 (03:44→20:29)
[2017-12-22] MEDS: DILTIAZEM CD 120 MG CAP.ER.24H PO SCH (07:56)
[2017-12-22] MEDS: FERROUS SULFATE 325 MG TAB PO SCH (07:56)
[2017-12-22] MEDS: cloNIDine HCL 0.1 MG TAB PO SCH (07:56)
[2017-12-22] MEDS: ESCITALOPRAM 10 MG TAB PO SCH (07:56)
[2017-12-22] MEDS: HYDROcodone/APAP 5-325MG 1 EACH TAB PO PRN (07:56)
[2017-12-22] MEDS: GABAPENTIN 300 MG CAP PO SCH ×3 (07:56→21:11)
[2017-12-22 08:42] LABS: ALT 23 U/L (9-52); AST 21 U/L (14-36); Albumin 2.9 g/dL (3.5-5.0); Alkaline Phosphatase 79 U/L (38-126); Anion Gap 4 mmol/L; Blood Urea Nitrogen 8 mg/dL (7-17); Calcium 8.8 mg/dL (8.4-10.2); Carbon Dioxide 26 mmol/L (22-30); Chloride 108 mmol/L (98-107); Glucose 99 mg/dL (74-99); Potassium 4.5 mmol/L (3.5-5.1); Sodium 138 mmol/L (137-145); Total Bilirubin 0.2 mg/dL (0.2-1.3); Total Protein 5.4 g/dL (6.3-8.2)
[2017-12-22 08:44] LABS: Anisocytosis Slight; Basophils % (A) 0 %; Eosinophils # (A) 0.1 k/uL (0-0.7); Eosinophils % (A) 1 %; HCT 25.4 % (34.0-46.0); HGB 8.1 gm/dL (11.4-16.0); Hypochromasia Slight; Lymphocytes # (A) 1.9 k/uL (1.0-4.8); Lymphocytes % (A) 30 %; MCH 28.5 pg (25.0-35.0); MCHC 31.8 g/dL (31.0-37.0); MCV 89.6 fL (80.0-100.0); Mean Platelet Volume 7.6; Monocytes # (A) 0.4 k/uL (0-1.0); Monocytes % (A) 7 %; Neutrophils # (A) 3.7 k/uL (1.3-7.7); Neutrophils % (A) 59 %; Platelet Count 291 k/uL (150-450); RBC 2.84 m/uL (3.80-5.40); RDW 18.9 % (11.5-15.5); WBC 6.3 k/uL (3.8-10.6)
[2017-12-22] MEDS: cefTRIAXone IN SWFI 1,000 MG/10 ML SYRINGE IVP SCH (10:03)
--- NOTE | 2017-12-22 18:51 | HP ---
HISTORY AND PHYSICAL CHIEF COMPLAINT: Carcinoma of the ovary, lower abdominal and flank pain with a urinary tract infection. HISTORY OF PRESENT ILLNESS: This is another recent admission for this 62-year-old white female. She has been fighting ovarian cancer for several years. She was recently in the hospital with an enlarging pelvic mass and right ureteral obstruction, for which a stent was placed and is currently still there. She started having increasing abdominal pain and left-sided flank pain with nausea and vomiting and came to the emergency room. She does have a urinary tract infection. She has been recently started on another round of chemotherapy. REVIEW OF SYSTEMS: She has had no neurologic problems, change in the vision or the hearing, cough, hemoptysis, shortness of breath, chest pain, palpitations, vomiting, diarrhea, melena, hematochezia, etc. Past medical history, family history, and personal and social histories reveal that she has multiple ALLERGIES, including CLINDAMYCIN, IODINE, PENICILLIN AND CODEINE. CURRENT MEDICATIONS: 1. Clonidine 0.1 once a day. 2. Zofran 4 mg 1 or 2 q.6 p.r.n. 3. [employer] 5 one q.4 p.r.n. 4. Lexapro 10 once a day. 5. Gabapentin 300 mg t.i.d. 6. Ferrous sulfate 325 once a day. 7. Cardizem CD 120 once a day. 8. Xanax 0.250 t.i.d. p.r.n. She has never used alcohol or tobacco. PHYSICAL EXAMINATION: Blood pressure is 98/60 with a pulse 74, respirations 16, and she is afebrile. In general she appeared to be pale and chronically ill. Head, ears, eyes, nose, mouth and throat were normal. Chest was clear. Cardiac exam demonstrated sinus rhythm. Abdomen was soft. She was somewhat tender in the lower abdomen where there was a fullness. Flanks were nontender. EXTREMITIES: Normal. Neurologically she was intact. She is admitted to the hospital with diagnoses: 1. Lower abdominal pain and left flank pain. 2. Carcinoma of the ovary. 3. Recent right ureteral obstruction with stent. 4. Hypertension. 5. Urinary tract infection. PLAN: 1. Bed rest. 2. IV fluids. 3. IV antibiotics. 4. Analgesia. 5. Rule out left ureteral obstruction. MMODL / IJN: [id number] /
--- NOTE | 2017-12-22 19:03 | PN ---
PROGRESS NOTE DATE OF SERVICE: 12/22/2017. CHIEF COMPLAINT: Abdominal pain, cancer of the ovary. HISTORY OF PRESENT ILLNESS: This lady is complaining of a lot of left flank pain. She believes that is the effect of her ureteral stent being placed, but it is not. We will obtain a CT today to see if her left ureter is obstructed. PHYSICAL EXAMINATION: Abdomen is a little bit distended. She is tender in the lower quadrants on both sides. Bowel sounds are present. IMPRESSION: 1. Cancer of the ovary. 2. Possible obstructive uropathy on the left. PLAN: CT of the abdomen. MMODL / IJN: [id number] /
[2017-12-22] MEDS: ALPRAZolam 0.25 MG TAB PO PRN (21:08)
[2017-12-23] MEDS: HYDROmorphone 1 MG/ML 1 ML SYRINGE IVP PRN ×2 (00:31→03:06)
[2017-12-23 01:03] VITALS: RESP 18
[2017-12-23] MEDS: cefTRIAXone IN SWFI 1,000 MG/10 ML SYRINGE IVP SCH (09:47)
[2017-12-23] MEDS: cloNIDine HCL 0.1 MG TAB PO SCH (09:52)
[2017-12-23] MEDS: GABAPENTIN 300 MG CAP PO SCH ×3 (09:52→22:08)
[2017-12-23] MEDS: DILTIAZEM CD 120 MG CAP.ER.24H PO SCH (09:52)
[2017-12-23] MEDS: ESCITALOPRAM 10 MG TAB PO SCH (09:52)
[2017-12-23] MEDS: FERROUS SULFATE 325 MG TAB PO SCH (09:52)
--- NOTE | 2017-12-23 11:19 | US ---
EXAMINATION TYPE: US abdomen complete DATE OF EXAM: 12/23/2017 COMPARISON: NONE CLINICAL HISTORY: poss hydronephrosis, hx cancer . EXAM MEASUREMENTS: Liver Length: 16.4 cm Gallbladder Wall: Surgically absent CBD: 0.7 cm Spleen: 12 cm Right Kidney: 10.3 x 5.4 x 4.2 cm Left Kidney: 10.5 x 4.2 x 4.5 cm Limited due to bowel gas Pancreas: wnl Liver: wnl Gallbladder: Surgically absent Evidence for sonographic Wooten's sign: No CBD: wnl post-cholecystectomy Spleen: wnl Right Kidney: Hydronephrosis seen Left Kidney: Hydronephrosis seen Upper IVC: wnl Abd Aorta: Atherosclerotic changes noted The pancreas is unremarkable. The liver is normal in size without biliary dilatation. The gallbladder is surgically absent. The distal common hepatic duct measures 7 mm. The spleen is normal in size. There is mild hydronephrosis present bilaterally. IMPRESSION: 1. STATUS POST CHOLECYSTECTOMY. 2. MILD, BILATERAL HYDRONEPHROSIS.
[2017-12-23] MEDS: ONDANSETRON 4 MG/2 ML VIAL IVP PRN ×2 (14:25→22:07)
[2017-12-23] MEDS: HYDROcodone/APAP 5-325MG 1 EACH TAB PO PRN ×2 (16:38→22:08)
--- NOTE | 2017-12-23 18:28 | PN ---
PROGRESS NOTE DATE OF SERVICE: 12/23/2017 CHIEF COMPLAINT: Abdominal pain, urinary tract infection, CA of the ovary and left back pain. HISTORY OF PRESENT ILLNESS: This lady is feeling a little better and pain is somewhat improved. She is going down for her ultrasound today, apparently. PHYSICAL EXAM: Abdomen is still slightly distended and she has generalized mild tenderness particularly in the lower aspect. Bowel sounds are present. IMPRESSION: 1. Carcinoma of the ovary. 2. Urinary tract infection. 3. Left low back pain. PLAN: Await results of ultrasound or CT to determine if she has a left ureteral obstruction. MMODL / IJN: [id number] /
[2017-12-23] MEDS: ALPRAZolam 0.25 MG TAB PO PRN (22:13)
[2017-12-24] MEDS: DILTIAZEM CD 120 MG CAP.ER.24H PO SCH (08:34)
[2017-12-24] MEDS: cefTRIAXone IN SWFI 1,000 MG/10 ML SYRINGE IVP SCH (08:34)
[2017-12-24] MEDS: GABAPENTIN 300 MG CAP PO SCH (08:34)
[2017-12-24] MEDS: cloNIDine HCL 0.1 MG TAB PO SCH (08:34)
[2017-12-24] MEDS: ESCITALOPRAM 10 MG TAB PO SCH (08:34)
[2017-12-24] MEDS: FERROUS SULFATE 325 MG TAB PO SCH (08:34)
[2017-12-24 09:00] VITALS: BP 138/80; PULSE 73; TEMP 99.3
[2017-12-24] MEDS: HYDROcodone/APAP 5-325MG 1 EACH TAB PO PRN (09:09)
[2017-12-24] MEDS: ONDANSETRON 4 MG/2 ML VIAL IVP PRN (09:26)
--- NOTE | 2017-12-25 20:24 | DS ---
DISCHARGE SUMMARY CHIEF COMPLAINT: Lower abdominal pain, left flank pain, urinary tract infection and CA of the ovary. HISTORY OF PRESENT ILLNESS AND PHYSICAL EXAM: Details of this lady's history and physical can be found in the initial workup. LABORATORY STUDIES: While she was in the hospital, she had laboratory studies, details of which can be found in the laboratory section of her chart. COURSE IN HOSPITAL: After admission, she was placed on bedrest and started on antibiotics and analgesics. Because she had left flank pain, she had an ultrasound which demonstrated that she now has hydronephrosis on the left. The pain was doing well and she was asymptomatic and wanted to be discharged on the . She will go home on the ciprofloxacin that she was on before she came in. She will be seen in the office in a day or 2. She will have to be set up with a urology consult for probable placement of a left ureteral stent. FINAL DIAGNOSES: 1. Lower abdominal pain and flank pain. 2. Hydronephrosis. 3. Urinary tract infection. 4. Carcinoma of the ovary. OPERATIONS: None. CONSULTATION: None. She is improved. MMODL / IJN: [id number] /
== END 2017-12-24 13:48 | disposition home or self-care (01) | DRG 690 ==
LOC: EC 10:13 → 4MS4W 12:57 → OBSVTOIN 12-23 08:32
PROVIDERS: ADMIT Family Medicine; ATTEND Family Medicine
DX: N13.6 Pyonephrosis (principal); C56.9 Malignant neoplasm of unspecified ovary; K21.9 Gastro-esophageal reflux disease without esophagitis; K59.00 Constipation, unspecified; F32.9 Major depressive disorder, single episode, unspecified; F41.9 Anxiety disorder, unspecified; Z83.3 Family history of diabetes mellitus; M54.5 Low back pain; Z79.899 Other long term (current) drug therapy; Z88.5 Allergy status to narcotic agent; Z87.11 Personal history of peptic ulcer disease; Z87.442 Personal history of urinary calculi; Z86.718 Personal history of other venous thrombosis and embolism; Z86.19 Personal history of other infectious and parasitic diseases; Z95.5 Presence of coronary angioplasty implant and graft; Z90.710 Acquired absence of both cervix and uterus; Z90.722 Acquired absence of ovaries, bilateral; Z85.028 Personal history of other malignant neoplasm of stomach; Z88.0 Allergy status to penicillin; Z88.8 Allergy status to other drugs, medicaments and biological substances; Z91.048 Other nonmedicinal substance allergy status; Z80.1 Family history of malignant neoplasm of trachea, bronchus and lung; Z82.3 Family history of stroke; Z82.0 Family history of epilepsy and other diseases of the nervous system
CPT/HCPCS: 36415; 74018; 76700; 80053; 81001; 82150; 83690; 85025; 87086; 96361; 96374; 96375; 99285

== ENCOUNTER 2018-01-06 10:29 | Inpatient (IN) | payer BC ==
[2018-01-06] MEDS ORDERED: SODIUM CHLORIDE 0.9% 2,000 ML IV STA (10:57)
[2018-01-06] MEDS ORDERED: ONDANSETRON 4 MG/2 ML VIAL IVP STA (11:28)
[2018-01-06] MEDS ORDERED: HYDROmorphone 0.5 MG/0.5 ML SYRINGE IVP STA (11:28)
[2018-01-06] MEDS ORDERED: FAMOTIDINE 20 MG/2 ML VIAL IV STA (11:39)
[2018-01-06] MEDS ORDERED: diphenhydrAMINE 50 MG/ML 1 ML VIAL IVP STA (11:39)
[2018-01-06] MEDS ORDERED: DILTIAZEM CD 120 MG CAP.ER.24H PO STA (12:09)
--- NOTE | 2018-01-06 12:09 | ED ---
Abdominal Pain HPI - General Chief Complaint: Abdominal Pain Stated Complaint: abdominal pain; cramping; vomiting Time Seen by Provider: 01/06/18 10:57 Source: patient, RN notes reviewed Mode of arrival: wheelchair Limitations: no limitations - History of Present Illness Initial Comments: This a 62-year-old female presents emergency Department with chief complaint of abdominal pain, nausea vomiting. Patient states that she is currently being treated for ovarian cancer with metastasis. Patient states that she has some pain worse and last night and worsened this morning of along with nausea vomiting. She currently sees [facility] in [place] for her chemotherapy and oncologist. Patient denies any dysuria, hematuria no diarrhea no constipation this time. She states that she generally does not feel well she did not know is that she had a fever at home. - Related Data Home Medications Medication Instructions Recorded Confirmed ALPRAZolam [Xanax] 0.25 mg PO HS PRN 08/25/14 12/21/17 Diltiazem HCl [Diltiazem 24Hr ER] 120 mg PO DAILY 08/25/14 12/21/17 Polyethylene Glycol 3350 [Miralax] 17 gm PO BID PRN 10/05/17 12/21/17 Gabapentin [Neurontin] 300 mg PO TID 10/17/17 12/21/17 Acetaminophen Tab [Tylenol] 325 mg PO Q4H 12/21/17 12/21/17 Ciprofloxacin HCl [Cipro] 500 mg PO Q12HR 12/21/17 12/21/17 Escitalopram [Lexapro] 10 mg PO DAILY 12/21/17 12/21/17 Ferrous Sulfate [Iron (65 MG 325 mg PO DAILY 12/21/17 12/21/17 Elemental)] Hydrocodone/Acetaminophen [[place] 1 tab PO Q4HR PRN 12/21/17 12/21/17 5-325] Magnesium Hydroxide [Milk of 2,400 mg PO DAILY PRN 12/21/17 12/21/17 Magnesia] Ondansetron HCl [Zofran] 8 mg PO Q6H PRN 12/21/17 12/21/17 cloNIDine HCL [Catapres] 0.1 mg PO DAILY 12/21/17 12/21/17 Allergies Allergy/AdvReac Type Severity Reaction Status Date / Time adhesive Allergy Rash/Hives Verified 12/21/17 10:33 carboplatin Allergy Anaphylaxis Verified 12/21/17 10:33 iodine Allergy Rash/Hives Verified 12/21/17 10:33 Penicillins Allergy Rash/Hives Verified 12/21/17 10:33 codeine AdvReac Nausea & Verified 12/21/17 10:33 Vomiting morphine AdvReac Nausea & Verified 12/21/17 10:33 Vomiting Review of Systems ROS Statement: Those systems with pertinent positive or pertinent negative responses have been documented in the HPI. ROS Other: All systems not noted in ROS Statement are negative. Past Medical History Past Medical History: Cancer, Deep Vein Thrombosis (DVT), GERD/Reflux Additional Past Medical History / Comment(s): 2006 Ovarian cancer with surgery/ chemo, reoccurrance ovarian cancer 08/2017 with chemo, current UTI, past UTIs, R leg DVT 2014, bilateral TMJ with surgery, partial bowel obstruction, kidney stones, hydronephrosis. stomach cancer History of Any Multi-Drug Resistant Organisms: VRE Date of last positivie culture/infection: 10/27/17 MDRO Source:: urine Past Surgical History: Adenoidectomy, Appendectomy, Cholecystectomy, Heart Catheterization With Stent, Hysterectomy, Tonsillectomy Additional Past Surgical History / Comment(s): ovarian cancer with bilateral oopherectomy/hysterectomy 2005; 2 open exploratory abdominal surgery, R chest mediport placed 2011, bilateral retrograde pyelogram cystoscopy with R ureter stent, ureter stent right ureter, anemia, jaws have pins d/t surgery for TMJ, colonoscopy Past Anesthesia/Blood Transfusion Reactions: No Reported Reaction Additional Past Anesthesia/Blood Transfusion Reaction / Comment(s): Pt has received blood in past without reaction. Date of Last Stent Placement:: 2011 Past Psychological History: Anxiety, Depression Smoking Status: Never smoker Past Alcohol Use History: None Reported Past Drug Use History: None Reported - Past Family History Mother Family Medical History: Diabetes Mellitus, Dialysis Brother(s) Family Medical History: Cancer Additional Family Medical History / Comment(s): lung cancer- since passed Sister(s) Family Medical History: CVA/TIA Father Family Medical History: Dementia, Neurologic Disorder Additional Family Medical History / Comment(s): alzheimers General Exam Limitations: no limitations General appearance: alert, in no apparent distress Head exam: Present: atraumatic, normocephalic, normal inspection ENT exam: Present: normal oropharynx Neck exam: Present: normal inspection, full ROM. Absent: tenderness, meningismus, lymphadenopathy Respiratory exam: Present: normal lung sounds bilaterally. Absent: respiratory distress, wheezes, rales, rhonchi, stridor Cardiovascular Exam: Present: normal rhythm, tachycardia, normal heart sounds. Absent: systolic murmur, diastolic murmur, rubs, gallop, clicks GI/Abdominal exam: Present: soft, tenderness (Moderate lower abdominal tenderness), normal bowel sounds. Absent: distended, guarding, rebound, rigid Back exam: Absent: CVA tenderness (R), CVA tenderness (L) Skin exam: Present: warm, dry, intact, normal color. Absent: rash Course Vital Signs 01/06/18 01/06/18 10:45 12:16 Temperature 99.9 F H Pulse Rate 115 H 87 Respiratory 20 18 Rate Blood Pressure 214/104 195/91 O2 Sat by Pulse 98 94 L Oximetry Medical Decision Making - Lab Data Result diagrams: 01/06/18 12:12 01/06/18 12:12 Lab Results 01/06/18 01/06/18 01/06/18 Range/Units 12:12 12:12 12:12 WBC 14.2 H (3.8-10.6) k/uL RBC 3.44 L (3.80-5.40) m/uL Hgb 10.5 L (11.4-16.0) gm/dL Hct 32.1 L (34.0-46.0) % MCV 93.3 (80.0-100.0) fL MCH 30.6 (25.0-35.0) pg MCHC 32.8 (31.0-37.0) g/dL RDW 18.5 H (11.5-15.5) % Plt Count 133 L D (150-450) k/uL Neutrophils % 85 % Lymphocytes % 10 % Monocytes % 3 % Eosinophils % 0 % Basophils % 0 % Neutrophils # 12.0 H (1.3-7.7) k/uL Lymphocytes # 1.5 (1.0-4.8) k/uL Monocytes # 0.5 (0-1.0) k/uL Eosinophils # 0.1 (0-0.7) k/uL Basophils # 0.0 (0-0.2) k/uL Hypochromasia Slight Anisocytosis Slight PT (9.0-12.0) sec INR (<1.2) APTT (22.0-30.0) sec Sodium 140 (137-145) mmol/L Potassium 3.8 (3.5-5.1) mmol/L Chloride 106 (98-107) mmol/L Carbon Dioxide 23 (22-30) mmol/L Anion Gap 11 mmol/L BUN 11 (7-17) mg/dL Creatinine 0.80 (0.52-1.04) mg/dL Est GFR (CKD-EPI)AfAm >90 (>60 ml/min/1.73 sqM) Est GFR (CKD-EPI)NonAf 78 (>60 ml/min/1.73 sqM) Glucose 149 H (74-99) mg/dL Plasma Lactic Acid Chad 2.7 H* (0.7-2.0) mmol/L Calcium 9.8 (8.4-10.2) mg/dL Total Bilirubin 0.5 (0.2-1.3) mg/dL AST 26 (14-36) U/L ALT 24 (9-52) U/L Alkaline Phosphatase 113 (38-126) U/L Total Protein 6.8 (6.3-8.2) g/dL Albumin 3.8 (3.5-5.0) g/dL Amylase 44 (30-110) U/L Lipase 45 (23-300) U/L Urine Color Urine Appearance (Clear) Urine pH (5.0-8.0) Ur Specific [place] (1.001-1.035) Urine Protein (Negative) Urine Glucose (UA) (Negative) Urine Ketones (Negative) Urine Blood (Negative) Urine Nitrite (Negative) Urine Bilirubin (Negative) Urine Urobilinogen (<2.0) mg/dL Ur Leukocyte Esterase (Negative) Urine RBC (0-5) /hpf Urine WBC (0-5) /hpf Urine WBC Clumps (None) /hpf Ur Squamous Epith Cells (0-4) /hpf Urine Bacteria (None) /hpf Hyaline Casts (0-2) /lpf Urine Mucus (None) /hpf Urine Yeast (Budding) (None) /hpf 01/06/18 01/06/18 Range/Units 12:12 12:12 WBC (3.8-10.6) k/uL RBC (3.80-5.40) m/uL Hgb (11.4-16.0) gm/dL Hct (34.0-46.0) % MCV (80.0-100.0) fL MCH (25.0-35.0) pg MCHC (31.0-37.0) g/dL RDW (11.5-15.5) % Plt Count (150-450) k/uL Neutrophils % % Lymphocytes % % Monocytes % % Eosinophils % % Basophils % % Neutrophils # (1.3-7.7) k/uL Lymphocytes # (1.0-4.8) k/uL Monocytes # (0-1.0) k/uL Eosinophils # (0-0.7) k/uL Basophils # (0-0.2) k/uL Hypochromasia Anisocytosis PT 10.0 (9.0-12.0) sec INR 1.0 (<1.2) APTT 21.2 L (22.0-30.0) sec Sodium (137-145) mmol/L Potassium (3.5-5.1) mmol/L Chloride (98-107) mmol/L Carbon Dioxide (22-30) mmol/L Anion Gap mmol/L BUN (7-17) mg/dL Creatinine (0.52-1.04) mg/dL Est GFR (CKD-EPI)AfAm (>60 ml/min/1.73 sqM) Est GFR (CKD-EPI)NonAf (>60 ml/min/1.73 sqM) Glucose (74-99) mg/dL Plasma Lactic Acid Chad (0.7-2.0) mmol/L Calcium (8.4-10.2) mg/dL Total Bilirubin (0.2-1.3) mg/dL AST (14-36) U/L ALT (9-52) U/L Alkaline Phosphatase (38-126) U/L Total Protein (6.3-8.2) g/dL Albumin (3.5-5.0) g/dL Amylase (30-110) U/L Lipase (23-300) U/L Urine Color Yellow Urine Appearance Cloudy H (Clear) Urine pH 6.0 (5.0-8.0) Ur Specific [place] 1.017 (1.001-1.035) Urine Protein 3+ H (Negative) Urine Glucose (UA) Negative (Negative) Urine Ketones Negative (Negative) Urine Blood Moderate H (Negative) Urine Nitrite Negative (Negative) Urine Bilirubin Negative (Negative) Urine Urobilinogen <2.0 (<2.0) mg/dL Ur Leukocyte Esterase Small H (Negative) Urine RBC 68 H (0-5) /hpf Urine WBC >182 H (0-5) /hpf Urine WBC Clumps Few H (None) /hpf Ur Squamous Epith Cells 3 (0-4) /hpf Urine Bacteria Occasional H (None) /hpf Hyaline Casts 55 H (0-2) /lpf Urine Mucus Few H (None) /hpf Urine Yeast (Budding) Few H (None) /hpf Disposition Clinical Impression: Small bowel obstruction, Abdominal pain, UTI (urinary tract infection), Sepsis Disposition: ADMITTED IP TO THIS HOSP Condition: Fair Referrals: Kevin Metzger MD [Primary Care Provider] - 1-2 days
[2018-01-06 12:28] LABS: Anisocytosis Slight; Basophils % (A) 0 %; Eosinophils # (A) 0.1 k/uL (0-0.7); Eosinophils % (A) 0 %; HCT 32.1 % (34.0-46.0); HGB 10.5 gm/dL (11.4-16.0); Hypochromasia Slight; Lymphocytes # (A) 1.5 k/uL (1.0-4.8); Lymphocytes % (A) 10 %; MCH 30.6 pg (25.0-35.0); MCHC 32.8 g/dL (31.0-37.0); MCV 93.3 fL (80.0-100.0); Mean Platelet Volume 8.5; Monocytes # (A) 0.5 k/uL (0-1.0); Monocytes % (A) 3 %; Neutrophils % (A) 85 %; RBC 3.44 m/uL (3.80-5.40); RDW 18.5 % (11.5-15.5); WBC 14.2 k/uL (3.8-10.6)
[2018-01-06 12:31] LABS: Appearance,Urine Cloudy (Clear); Bacteria,Urine Occasional /hpf; Bilirubin,Urine Negative (Negative); Blood,Urine Moderate (Negative); Budding Yeast,Urine Few /hpf; Color,Urine Yellow; Glucose,Urine (UA) Negative (Negative); Hyaline Casts,Urine 55 /lpf (0-2); Ketones,Urine Negative (Negative); Leukocyte Esterase,Urine Small (Negative); Mucus,Urine Few /hpf; Nitrite,Urine Negative (Negative); Protein,Urine 3+ (Negative); RBC,Urine 68 /hpf (0-5); Specific Gravity,Urine 1.017 (1.001-1.035); Squamous Epithelial Cell,Urine 3 /hpf (0-4); Urobilinogen,Urine <2.0 mg/dL (<2.0); WBC,Urine >182 /hpf (0-5)
[2018-01-06 12:32] LABS: Platelet Count 133 k/uL (150-450)
[2018-01-06 12:41] LABS: ALT 24 U/L (9-52); AST 26 U/L (14-36); Albumin 3.8 g/dL (3.5-5.0); Alkaline Phosphatase 113 U/L (38-126); Amylase 44 U/L (30-110); Anion Gap 11 mmol/L; Blood Urea Nitrogen 11 mg/dL (7-17); Calcium 9.8 mg/dL (8.4-10.2); Carbon Dioxide 23 mmol/L (22-30); Chloride 106 mmol/L (98-107); Glucose 149 mg/dL (74-99); Lipase 45 U/L (23-300); Potassium 3.8 mmol/L (3.5-5.1); Sodium 140 mmol/L (137-145); Total Bilirubin 0.5 mg/dL (0.2-1.3); Total Protein 6.8 g/dL (6.3-8.2)
[2018-01-06 12:44] LABS: Partial Thromboplastin Time 21.2 sec (22.0-30.0)
--- NOTE | 2018-01-06 13:01 | CT ---
EXAMINATION TYPE: CT abdomen pelvis w con DATE OF EXAM: 01/06/2018 REFERENCE: Previous study dated 10/17/2017. HISTORY: Pain HISTORY: Pain REFERENCE: NONE CT DLP: 431 mGy Automated exposure control for dose reduction was used. TECHNIQUE: Helical acquisition through the abdomen and pelvis was obtained following the oral ingesti on of without Oral Contrast and following intravenous administration of 100 mL of Isovue 300. The leonel a was reformatted in axial, coronal and sagittal projections. FINDINGS: Visualized portions of the lungs are clear. There is no pleural or pericardial fluid. The heart is not enlarged. Within the abdomen, the gallbladder is been removed. The liver is low attenuating and may be fatty in filtrated. The liver and spleen are normal in size. Both adrenal glands are normal. There is a double-J stent present in the left ureter and right renal pelvis. The distal end is within the bladder. Right-sided hydronephrosis has resolved. There continues to be some fullness of the lef t ureter. There is mild hydronephrosis on the left. The distal common bile duct is dilated. The pancreas is otherwise normal enhanced appearance. There is no significant retroperitoneal, iliac or inguinal adenopathy. The bladder is not distended. The left side of the colon is collapsed. The appendix is not visualized. There are markedly dilated loops of small bowel throughout the abdomen with a transition zone in the right lower quadrant. There is a small amount of free fluid. There is no evidence of free air. There is a triangular soft tissue density in the subcutaneous fat of the left side of the lower abdom en. This is unchanged from previous. No bony destructive lesion is seen. IMPRESSION: 1. DISTAL SMALL BOWEL OBSTRUCTION. 2. DOUBLE-J STENT IN THE RIGHT KIDNEY WITH RESOLUTION OF THE PATIENT'S RIGHT-SIDED HYDRONEPHROSIS. 3. MILD RIGHT-SIDED HYDROURETER AND HYDRONEPHROSIS. 4. PROBABLE FATTY INFILTRATION OF THE LIVER.
[2018-01-06] MEDS ORDERED: LEVOFLOXACIN 750MG-D5W PMX 750 MG in DEXTROSE/WATER 1 150ML.BAG IVPB STA (13:04)
[2018-01-06] MEDS ORDERED: NALOXONE 0.4 MG/ML 1 ML VIAL IV PRN (13:07)
[2018-01-06] MEDS ORDERED: hydrALAZINE HCL 20 MG/ML 1 ML VIAL IVP STA (13:21)
[2018-01-06] MEDS: SODIUM CHLORIDE 0.9% 1,000 ML IV SCH (13:43)
[2018-01-06] MEDS ORDERED: METOCLOPRAMIDE 5 MG/ML 2 ML VIAL IVP STA (14:19)
[2018-01-06] MEDS: HYDROmorphone 1 MG/ML 1 ML SYRINGE IVP PRN ×2 (15:29→19:10)
[2018-01-06] MEDS: ONDANSETRON 4 MG/2 ML VIAL IVP PRN (18:52)
[2018-01-06] MEDS: HEPARIN SODIUM,PORCINE 5,000 UNIT/ML 1 ML VIAL SQ SCH (23:38)
[2018-01-06] MEDS: metroNIDAZOLE-NS PMX 500 MG in SALINE 1 100ML.BAG IVPB SCH (23:38)
[2018-01-07] MEDS: HYDROmorphone 1 MG/ML 1 ML SYRINGE IVP PRN ×6 (00:38→23:46)
[2018-01-07] MEDS: SODIUM CHLORIDE 0.9% 1,000 ML IV SCH ×2 (02:08→13:54)
[2018-01-07] MEDS: hydrALAZINE HCL 20 MG/ML 1 ML VIAL IVP PRN ×3 (02:46→15:46)
[2018-01-07] MEDS: ONDANSETRON 4 MG/2 ML VIAL IVP PRN ×3 (02:53→22:18)
[2018-01-07 06:08] LABS: Glucose,Whole Blood 135 mg/dL (75-99)
[2018-01-07] MEDS ORDERED: METOCLOPRAMIDE 5 MG/ML 2 ML VIAL IVP STA (06:30)
[2018-01-07 07:03] LABS: Anion Gap 13 mmol/L; Blood Urea Nitrogen 9 mg/dL (7-17); Calcium 9.5 mg/dL (8.4-10.2); Carbon Dioxide 20 mmol/L (22-30); Chloride 109 mmol/L (98-107); Glucose 121 mg/dL (74-99); Potassium 3.3 mmol/L (3.5-5.1); Sodium 142 mmol/L (137-145)
[2018-01-07 07:13] LABS: Anisocytosis Slight; HCT 31.6 % (34.0-46.0); HGB 9.8 gm/dL (11.4-16.0); Hypochromasia Slight; MCH 29.5 pg (25.0-35.0); MCHC 31.1 g/dL (31.0-37.0); MCV 94.7 fL (80.0-100.0); Macrocytosis Slight; Mean Platelet Volume 7.9; Platelet Count 145 k/uL (150-450); RBC 3.34 m/uL (3.80-5.40); RDW 19.1 % (11.5-15.5); WBC 20.9 k/uL (3.8-10.6)
[2018-01-07] MEDS: DILTIAZEM 50 MG in SODIUM CHLORIDE 0.9% 40 ML IV SCH ×4 (07:50→22:07)
[2018-01-07 08:00] LABS: Band Neutrophils % 3 %; Lymphocytes # (M) 4.81 k/uL (1.0-4.8); Monocytes # (M) 0.42 k/uL (0-1.0); Neutrophils % (M) 72 %; Nucleated Red Blood Cells 0 /100 WBC (0-0); Polychromasia Present; Total Cells Counted 100
[2018-01-07] MEDS: HEPARIN SODIUM,PORCINE 5,000 UNIT/ML 1 ML VIAL SQ SCH ×3 (08:04→23:48)
[2018-01-07] MEDS: PANTOPRAZOLE 40 MG/10 ML VIAL IV SCH (08:04)
[2018-01-07] MEDS: metroNIDAZOLE-NS PMX 500 MG in SALINE 1 100ML.BAG IVPB SCH ×3 (08:04→23:49)
--- NOTE | 2018-01-07 09:42 | P.GSCN ---
History of Present Illness Consult date: 01/07/18 History of present illness: 62-year-old female presented to the emergency department with complaints of abdominal pain. She is noted to have a history of ovarian cancer with intra- abdominal metastasis. She does follow for her ovarian cancer treatment with [facility]. 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 On workup in the emergency department, did appear that the patient had a small bowel obstruction on imaging. She has been refusing a nasogastric tube for decompression since her admission. She has been asked multiple times by nursing staff and emergency department staff. She states that her last chemotherapy was approximately 2 weeks ago. At that time she did also meet with oncologic surgery and no surgical intervention was planned at that time. She states that she has had multiple abdominal surgeries , none of which involving her bowel. She states that she has been having abdominal discomfort for the last 4 or 5 months. She has had admissions to the hospital secondary to this. The patient states that she has not had nasogastric decompression during that time. She states her next chemo is scheduled for January 16. She is currently actively vomiting bilious material during exam and is nauseous. She denies any change in abdominal pain since her admission. She has had a resolution of her lactic acidosis but does have an increase in leukocytosis. Review of Systems All systems: negative Past Medical History Past Medical History: Cancer, Deep Vein Thrombosis (DVT), GERD/Reflux Additional Past Medical History / Comment(s): 2006 Ovarian cancer with surgery/ chemo, reoccurrance ovarian cancer 08/2017 with chemo, current UTI, past UTIs, R leg DVT 2014, bilateral TMJ with surgery, partial bowel obstruction, kidney stones, hydronephrosis. stomach cancer History of Any Multi-Drug Resistant Organisms: VRE Year Discovered:: 10/27/17 MDRO Source:: urine Past Surgical History: Adenoidectomy, Appendectomy, Cholecystectomy, Heart Catheterization With Stent, Hysterectomy, Tonsillectomy Additional Past Surgical History / Comment(s): ovarian cancer with bilateral oopherectomy/hysterectomy 2005; 2 open exploratory abdominal surgery, R chest mediport placed 2011, bilateral retrograde pyelogram cystoscopy with R ureter stent, ureter stent right ureter, anemia, jaws have pins d/t surgery for TMJ, colonoscopy Past Anesthesia/Blood Transfusion Reactions: No Reported Reaction Additional Past Anesthesia/Blood Transfusion Reaction / Comm: Pt has received blood in past without reaction. Date of Last Stent Placement:: 2011 Smoking Status: Never smoker - Past Family History Mother Family Medical History: Diabetes Mellitus, Dialysis Brother(s) Family Medical History: Cancer Additional Family Medical History / Comment(s): lung cancer- since passed Sister(s) Family Medical History: CVA/TIA Father Family Medical History: Dementia, Neurologic Disorder Additional Family Medical History / Comment(s): alzheimers Medications and Allergies Home Medications Medication Instructions Recorded Confirmed Type ALPRAZolam [Xanax] 0.25 mg PO HS PRN 08/25/14 01/06/18 History Diltiazem HCl [Diltiazem 24Hr ER] 120 mg PO DAILY 08/25/14 01/06/18 History Polyethylene Glycol 3350 [Miralax] 17 gm PO BID PRN 10/05/17 01/06/18 History Gabapentin [Neurontin] 300 mg PO TID 10/17/17 01/06/18 History Acetaminophen Tab [Tylenol] 325 mg PO Q4H PRN 12/21/17 01/06/18 History Escitalopram [Lexapro] 10 mg PO DAILY 12/21/17 01/06/18 History Ferrous Sulfate [Iron (65 MG 325 mg PO DAILY 12/21/17 01/06/18 History Elemental)] Hydrocodone/Acetaminophen [[place] 1 tab PO Q4HR PRN 12/21/17 01/06/18 History 5-325] Magnesium Hydroxide [Milk of 2,400 mg PO DAILY PRN 12/21/17 01/06/18 History Magnesia] Ondansetron HCl [Zofran] 8 mg PO Q6H PRN 12/21/17 01/06/18 History cloNIDine HCL [Catapres] 0.1 mg PO DAILY 12/21/17 01/06/18 History Allergies Allergy/AdvReac Type Severity Reaction Status Date / Time adhesive Allergy Rash/Hives Verified 01/06/18 13:19 carboplatin Allergy Anaphylaxis Verified 01/06/18 13:19 iodine Allergy Rash/Hives Verified 01/06/18 13:19 Penicillins Allergy Rash/Hives Verified 01/06/18 13:19 codeine AdvReac Nausea & Verified 01/06/18 13:19 Vomiting morphine AdvReac Nausea & Verified 01/06/18 13:19 Vomiting Surgical - Exam Osteopathic Statement: *. No significant issues noted on an osteopathic structural exam other than those noted in the History and Physical/Consult. Vital Signs Temp Pulse Resp BP Pulse Ox 99.9 F H 115 H 20 214/104 98 01/06/18 10:45 01/06/18 10:45 01/06/18 10:45 01/06/18 10:45 01/06/18 10:45 - General well developed - Eyes PERRL, normal ocular movement - ENT normal mucosa, no hearing loss - Neck no masses, no bruits, trachea midline - Respiratory normal respiratory effort - Abdomen Soft, mildly tender in the lower quadrant, nondistended, no rebound, no guarding - Neurologic normal coordination, normal sensation - Psychiatric oriented to time, oriented to person, oriented to place, speech is normal Results - Labs 01/07/18 06:05 01/07/18 06:05 Abnormal Lab Results - Last 24 Hours (Table) 01/06/18 01/06/18 01/06/18 Range/Units 12:12 12:12 12:12 WBC 14.2 H (3.8-10.6) k/uL RBC 3.44 L (3.80-5.40) m/uL Hgb 10.5 L (11.4-16.0) gm/dL Hct 32.1 L (34.0-46.0) % RDW 18.5 H (11.5-15.5) % Plt Count 133 L D (150-450) k/uL Neutrophils # 12.0 H (1.3-7.7) k/uL Neutrophils # (Manual) (1.3-7.7) k/uL Lymphocytes # (Manual) (1.0-4.8) k/uL APTT (22.0-30.0) sec Potassium (3.5-5.1) mmol/L Chloride (98-107) mmol/L Carbon Dioxide (22-30) mmol/L Glucose 149 H (74-99) mg/dL POC Glucose (mg/dL) (75-99) mg/dL Plasma Lactic Acid Chad 2.7 H* (0.7-2.0) mmol/L Urine Appearance (Clear) Urine Protein (Negative) Urine Blood (Negative) Ur Leukocyte Esterase (Negative) Urine RBC (0-5) /hpf Urine WBC (0-5) /hpf Urine WBC Clumps (None) /hpf Urine Bacteria (None) /hpf Hyaline Casts (0-2) /lpf Urine Mucus (None) /hpf Urine Yeast (Budding) (None) /hpf 01/06/18 01/06/18 01/07/18 Range/Units 12:12 12:12 06:04 WBC (3.8-10.6) k/uL RBC (3.80-5.40) m/uL Hgb (11.4-16.0) gm/dL Hct (34.0-46.0) % RDW (11.5-15.5) % Plt Count (150-450) k/uL Neutrophils # (1.3-7.7) k/uL Neutrophils # (Manual) (1.3-7.7) k/uL Lymphocytes # (Manual) (1.0-4.8) k/uL APTT 21.2 L (22.0-30.0) sec Potassium (3.5-5.1) mmol/L Chloride (98-107) mmol/L Carbon Dioxide (22-30) mmol/L Glucose (74-99) mg/dL POC Glucose (mg/dL) 135 H (75-99) mg/dL Plasma Lactic Acid Chad (0.7-2.0) mmol/L Urine Appearance Cloudy H (Clear) Urine Protein 3+ H (Negative) Urine Blood Moderate H (Negative) Ur Leukocyte Esterase Small H (Negative) Urine RBC 68 H (0-5) /hpf Urine WBC >182 H (0-5) /hpf Urine WBC Clumps Few H (None) /hpf Urine Bacteria Occasional H (None) /hpf Hyaline Casts 55 H (0-2) /lpf Urine Mucus Few H (None) /hpf Urine Yeast (Budding) Few H (None) /hpf 01/07/18 01/07/18 Range/Units 06:05 06:05 WBC 20.9 H (3.8-10.6) k/uL RBC 3.34 L (3.80-5.40) m/uL Hgb 9.8 L (11.4-16.0) gm/dL Hct 31.6 L (34.0-46.0) % RDW 19.1 H (11.5-15.5) % Plt Count 145 L (150-450) k/uL Neutrophils # (1.3-7.7) k/uL Neutrophils # (Manual) 15.60 H (1.3-7.7) k/uL Lymphocytes # (Manual) 4.81 H (1.0-4.8) k/uL APTT (22.0-30.0) sec Potassium 3.3 L (3.5-5.1) mmol/L Chloride 109 H (98-107) mmol/L Carbon Dioxide 20 L (22-30) mmol/L Glucose 121 H (74-99) mg/dL POC Glucose (mg/dL) (75-99) mg/dL Plasma Lactic Acid Chad (0.7-2.0) mmol/L Urine Appearance (Clear) Urine Protein (Negative) Urine Blood (Negative) Ur Leukocyte Esterase (Negative) Urine RBC (0-5) /hpf Urine WBC (0-5) /hpf Urine WBC Clumps (None) /hpf Urine Bacteria (None) /hpf Hyaline Casts (0-2) /lpf Urine Mucus (None) /hpf Urine Yeast (Budding) (None) /hpf Microbiology - Last 24 Hours (Table) 01/06/18 12:12 Urine Culture - Preliminary Urine,Clean Catch Diabetes panel 01/06/18 01/07/18 Range/Units 12:12 06:05 Sodium 140 142 (137-145) mmol/L Potassium 3.8 3.3 L (3.5-5.1) mmol/L Chloride 106 109 H (98-107) mmol/L Carbon Dioxide 23 20 L (22-30) mmol/L BUN 11 9 (7-17) mg/dL Creatinine 0.80 0.70 (0.52-1.04) mg/dL Glucose 149 H 121 H (74-99) mg/dL Calcium 9.8 9.5 (8.4-10.2) mg/dL AST 26 (14-36) U/L ALT 24 (9-52) U/L Alkaline Phosphatase 113 (38-126) U/L Total Protein 6.8 (6.3-8.2) g/dL Albumin 3.8 (3.5-5.0) g/dL Calcium panel 01/06/18 01/07/18 Range/Units 12:12 06:05 Calcium 9.8 9.5 (8.4-10.2) mg/dL Albumin 3.8 (3.5-5.0) g/dL Pituitary panel 01/06/18 01/07/18 Range/Units 12:12 06:05 Sodium 140 142 (137-145) mmol/L Potassium 3.8 3.3 L (3.5-5.1) mmol/L Chloride 106 109 H (98-107) mmol/L Carbon Dioxide 23 20 L (22-30) mmol/L BUN 11 9 (7-17) mg/dL Creatinine 0.80 0.70 (0.52-1.04) mg/dL Glucose 149 H 121 H (74-99) mg/dL Calcium 9.8 9.5 (8.4-10.2) mg/dL Adrenal panel 01/06/18 01/07/18 Range/Units 12:12 06:05 Sodium 140 142 (137-145) mmol/L Potassium 3.8 3.3 L (3.5-5.1) mmol/L Chloride 106 109 H (98-107) mmol/L Carbon Dioxide 23 20 L (22-30) mmol/L BUN 11 9 (7-17) mg/dL Creatinine 0.80 0.70 (0.52-1.04) mg/dL Glucose 149 H 121 H (74-99) mg/dL Calcium 9.8 9.5 (8.4-10.2) mg/dL Total Bilirubin 0.5 (0.2-1.3) mg/dL AST 26 (14-36) U/L ALT 24 (9-52) U/L Alkaline Phosphatase 113 (38-126) U/L Total Protein 6.8 (6.3-8.2) g/dL Albumin 3.8 (3.5-5.0) g/dL - Imaging CT scan - abdomen: report reviewed, image reviewed CT scan - pelvis: report reviewed, image reviewed (Dilation of small bowel, transition point in lower abdomen) Assessment and Plan (1) Small bowel obstruction Narrative/Plan: 62-year-old female with small bowel obstruction - I had a very long discussion with the patient about her current symptoms, cause and treatment plan. Initially, she is against any nasogastric decompression due to traumatic experience and passed with nasogastric tube placement. After complete explanation, the patient is agreeable to nasogastric tube decompression. We will attempt conservative management with this decompression at this time. The patient is not peritoneal on exam. We will follow with an abdominal x-ray this morning. If any surgical management is necessary, the patient has had multiple surgeries with her surgeon at [facility] and would like to follow there. - Keep nothing by mouth - Further recommendations after nasogastric tube placed and a.m. x-ray Current Visit: Yes Status: Acute Code(s): K56.609 - UNSP INTESTNL OBST, UNSP TO PARTIAL VERSUS COMPLETE OBST SNOMED Code(s): 396538031
--- NOTE | 2018-01-07 10:26 | XR ---
EXAMINATION TYPE: XR chest 1V DATE OF EXAM: 01/07/2018 HISTORY: NG tube insertion. REFERENCE: Previous study dated 10/05/2017. FINDINGS: NG tube is been passed. Its tip is in the stomach. There continues to be a right subclavian catheter in place, unchanged in appearance. The lungs are clear. Pleural spaces are clear. Heart size is upper limits of normal. IMPRESSION: SATISFACTORY NG TUBE PLACEMENT.
--- NOTE | 2018-01-07 11:37 | XR ---
EXAMINATION TYPE: XR abdomen 2V , 3 VIEWS DATE OF EXAM ORDERED: 01/07/2018 HISTORY: SBO. COMPARISON: Previous study dated 12/21/2017. FINDINGS: Lung bases are clear. There is a intravenous catheter in place in the SVC. There is an NG tube present with its tip in the stomach. There is a double-J catheter in place on the right. There a re clips overlying the pelvis. The abdominal gas pattern is normal. There is no evidence of obstruction or free air. No unusual calc ifications are seen. IMPRESSION: 1. NO ACUTE INTRA-ABDOMINAL ABNORMALITY. 2. TUBES AND CLIPS DESCRIBED.
[2018-01-07] MEDS ORDERED: ALPRAZolam 0.5 MG TAB PO PRN (12:21)
[2018-01-07] MEDS: LEVOFLOXACIN 750MG-D5W PMX 750 MG in DEXTROSE/WATER 1 150ML.BAG IVPB SCH (13:51)
[2018-01-07] MEDS: LORazepam 2 MG/ML INJ IV PRN (17:14)
--- NOTE | 2018-01-07 18:59 | P.HPIM ---
History of Present Illness H&P Date: 01/06/18 Chief Complaint: Abdominal pain, nausea & vomiting Ms. Galloway is a 62-year-old female with past medical history of DVT, GERD, ovarian cancer with bilateral oophorectomy/hysterectomy and exploratory laparotomy, status post right ureteral stent coming into the hospital with a chief complaint of nausea vomiting and abdominal pain for 2 days. The patient currently follows with [facility] [place] for her chemotherapy. Patient denies having any fevers chills or rigors. No cough difficulty in breathing or chest pain. No dysuria or hematuria. In the ED patient did get a CAT scan of the abdomen showing small bowel obstruction and has been admitted for further management. Review of Systems REVIEW OF SYSTEMS: PSYCH: No anxiety or depression NEURO:No c/o weakness of the extremties, No facial droop, No speech abnormalities. VASCULAR: No lower extremity swelling HEMATOLOGIC: No history of easy bleeding and bruising . No recent infections . RESPIRATORY: No cough, No SOB, No chest discomfort. INTEGUMENT: no rashes OPHTHALMOLOGIC: No blurry vision and no eye discharge : No dysuria or hematuria PASSENGER CONDUCTOR: No bleeding PV CARDIAC: No chest pain , shortness of breath , paroxysmal nocturnal dyspnea MUSCULOSKELETAL : No Aches or pains in the joints or muscles. GI: As per HPI Past Medical History Past Medical History: Cancer, Deep Vein Thrombosis (DVT), GERD/Reflux Additional Past Medical History / Comment(s): 2006 Ovarian cancer with surgery/ chemo, reoccurrance ovarian cancer 08/2017 with chemo, current UTI, past UTIs, R leg DVT 2014, bilateral TMJ with surgery, partial bowel obstruction, kidney stones, hydronephrosis. stomach cancer History of Any Multi-Drug Resistant Organisms: VRE Date of last positivie culture/infection: 10/27/17 MDRO Source:: urine Past Surgical History: Adenoidectomy, Appendectomy, Cholecystectomy, Heart Catheterization With Stent, Hysterectomy, Tonsillectomy Additional Past Surgical History / Comment(s): ovarian cancer with bilateral oopherectomy/hysterectomy 2005; 2 open exploratory abdominal surgery, R chest mediport placed 2011, bilateral retrograde pyelogram cystoscopy with R ureter stent, ureter stent right ureter, anemia, jaws have pins d/t surgery for TMJ, colonoscopy Past Anesthesia/Blood Transfusion Reactions: No Reported Reaction Additional Past Anesthesia/Blood Transfusion Reaction / Comment(s): Pt has received blood in past without reaction. Date of Last Stent Placement:: 2011 Smoking Status: Never smoker - Past Family History Mother Family Medical History: Diabetes Mellitus, Dialysis Brother(s) Family Medical History: Cancer Additional Family Medical History / Comment(s): lung cancer- since passed Sister(s) Family Medical History: CVA/TIA Father Family Medical History: Dementia, Neurologic Disorder Additional Family Medical History / Comment(s): alzheimers Medications and Allergies Home Medications Medication Instructions Recorded Confirmed Type ALPRAZolam [Xanax] 0.25 mg PO HS PRN 08/25/14 01/06/18 History Diltiazem HCl [Diltiazem 24Hr ER] 120 mg PO DAILY 08/25/14 01/06/18 History Polyethylene Glycol 3350 [Miralax] 17 gm PO BID PRN 10/05/17 01/06/18 History Gabapentin [Neurontin] 300 mg PO TID 10/17/17 01/06/18 History Acetaminophen Tab [Tylenol] 325 mg PO Q4H PRN 12/21/17 01/06/18 History Escitalopram [Lexapro] 10 mg PO DAILY 12/21/17 01/06/18 History Ferrous Sulfate [Iron (65 MG 325 mg PO DAILY 12/21/17 01/06/18 History Elemental)] Hydrocodone/Acetaminophen [[place] 1 tab PO Q4HR PRN 12/21/17 01/06/18 History 5-325] Magnesium Hydroxide [Milk of 2,400 mg PO DAILY PRN 12/21/17 01/06/18 History Magnesia] Ondansetron HCl [Zofran] 8 mg PO Q6H PRN 12/21/17 01/06/18 History cloNIDine HCL [Catapres] 0.1 mg PO DAILY 12/21/17 01/06/18 History Allergies Allergy/AdvReac Type Severity Reaction Status Date / Time adhesive Allergy Rash/Hives Verified 01/06/18 13:19 carboplatin Allergy Anaphylaxis Verified 01/06/18 13:19 iodine Allergy Rash/Hives Verified 01/06/18 13:19 Penicillins Allergy Rash/Hives Verified 01/06/18 13:19 codeine AdvReac Nausea & Verified 01/06/18 13:19 Vomiting morphine AdvReac Nausea & Verified 01/06/18 13:19 Vomiting Physical Exam Vitals: Vital Signs Temp Pulse Pulse Resp BP BP Pulse Ox 01/06/18 14:19 187/91 01/06/18 14:05 203/93 01/06/18 14:00 99.7 F H 70 17 136/93 94 L 01/06/18 13:46 99.4 F 77 18 190/88 98 01/06/18 13:20 78 18 201/90 100 01/06/18 12:16 87 18 195/91 94 L 01/06/18 10:45 99.9 F H 115 H 20 214/104 98 Intake and Output 01/06/18 01/06/18 01/06/18 06:59 14:59 22:59 Output Total 300 Balance -300 Output: Urine 300 Other: Weight 63.503 kg 63.503 kg GENERAL EXAM GEN. APPEARANCE: alert, in no apparent distress HEAD EXAM: atraumatic, normocephalic, normal inspection EYE EXAM: No pallor or icterus ENT EXAM: normal exam, mucous membranes moist NECK EXAM: normal inspection. Absent: tenderness, meningismus, full ROM, lymphadenopathy RESPIRATORY EXAM: Bilateral breath sounds positive with few rhonchi scattered CARDIOVASCULAR EXAM: S1 and S2 heard GI/ABDOMINAL EXAM: soft, mild tenderness in all quadrants, no guarding or rigidity, hypoactive bowel sounds EXTREMITIES EXAM: no pedal edema, joint swelling, calf tenderness NEUROLOGICAL EXAM: alert, oriented X3, no focal neurological deficits PSYCHIATRIC EXAM: normal affect, normal mood SKIN EXAM: warm, dry, intact, normal color. Absent: rash Results CBC & Chem 7: 01/06/18 12:12 01/06/18 12:12 Labs: Abnormal Lab Results - Last 24 Hours (Table) 01/06/18 01/06/18 01/06/18 Range/Units 12:12 12:12 12:12 WBC 14.2 H (3.8-10.6) k/uL RBC 3.44 L (3.80-5.40) m/uL Hgb 10.5 L (11.4-16.0) gm/dL Hct 32.1 L (34.0-46.0) % RDW 18.5 H (11.5-15.5) % Plt Count 133 L D (150-450) k/uL Neutrophils # 12.0 H (1.3-7.7) k/uL APTT (22.0-30.0) sec Glucose 149 H (74-99) mg/dL Plasma Lactic Acid Chad 2.7 H* (0.7-2.0) mmol/L Urine Appearance (Clear) Urine Protein (Negative) Urine Blood (Negative) Ur Leukocyte Esterase (Negative) Urine RBC (0-5) /hpf Urine WBC (0-5) /hpf Urine WBC Clumps (None) /hpf Urine Bacteria (None) /hpf Hyaline Casts (0-2) /lpf Urine Mucus (None) /hpf Urine Yeast (Budding) (None) /hpf 01/06/18 01/06/18 Range/Units 12:12 12:12 WBC (3.8-10.6) k/uL RBC (3.80-5.40) m/uL Hgb (11.4-16.0) gm/dL Hct (34.0-46.0) % RDW (11.5-15.5) % Plt Count (150-450) k/uL Neutrophils # (1.3-7.7) k/uL APTT 21.2 L (22.0-30.0) sec Glucose (74-99) mg/dL Plasma Lactic Acid Chad (0.7-2.0) mmol/L Urine Appearance Cloudy H (Clear) Urine Protein 3+ H (Negative) Urine Blood Moderate H (Negative) Ur Leukocyte Esterase Small H (Negative) Urine RBC 68 H (0-5) /hpf Urine WBC >182 H (0-5) /hpf Urine WBC Clumps Few H (None) /hpf Urine Bacteria Occasional H (None) /hpf Hyaline Casts 55 H (0-2) /lpf Urine Mucus Few H (None) /hpf Urine Yeast (Budding) Few H (None) /hpf Thrombosis Risk Factor Assmnt - Choose All That Apply Any of the Below Risk Factors Present?: Yes Other Risk Factors: Yes Each Risk Factor Represents 2 Points: Age 61-74 years Thrombosis Risk Factor Assessment Total Risk Factor Score: 2 Thrombosis Risk Factor Assessment Level: Low Risk Assessment and Plan Assessment: ASSESSMENT Acute small bowel obstruction Sepsis - source of infection being GI/ tract Recent history of UTI Ovarian cancer Right ureteric stent History of exploratory laparotomy 2 Right lower extremity DVT in 2014 GERD History of anxiety and depression Multiple drug ALLERGIES Plan: Patient kept nothing by mouth and NG tube. Surgical consult has been obtained. Empirically started on levofloxacin and Flagyl pending urine and blood cultures. Hydralazine IV when necessary for high blood pressure as the patient is nothing by mouth. GI/ DVT prophylaxis. Overall prognosis is poor due to chronic multiple medical conditions. Will follow the patient closely further recommendations to follow depending on the progress of the patient.
--- NOTE | 2018-01-07 19:05 | P.PN ---
Subjective Progress Note Date: 01/07/18 Principal diagnosis: Small bowel obstruction Ms. Galloway is a 62-year-old female with past medical history of DVT, GERD, ovarian cancer with bilateral oophorectomy/hysterectomy and exploratory laparotomy, status post right ureteral stent coming into the hospital with a chief complaint of nausea vomiting and abdominal pain for 2 days. The patient currently follows with [facility] [place] for her chemotherapy. In the ED patient did get a CAT scan of the abdomen showing small bowel obstruction and has been admitted for further management. On 01/07/2018 - last night patient was having tachycardia with heart rate in 140s to 150s has her cardiazem was held as she could not take anything by mouth. So the patient was started on a Cardizem drip. This afternoon patient still complains of nausea and retching. NG tube has been placed early this morning. She states that the NG tube is causing a lot of discomfort. She had a small bowel movement this morning and is able to pass flatus on and off. Objective - Vital Signs Vital signs: Vital Signs Temp 97.8 F 01/07/18 16:00 Pulse 140 H 01/07/18 16:00 Resp 18 01/07/18 16:00 BP 152/79 01/07/18 16:00 Pulse Ox 98 01/07/18 16:00 Intake & Output 01/06/18 01/07/18 01/07/18 18:59 06:59 18:59 Intake Total 344.5 Output Total 300 0 525 Balance -300 0 -180.5 Weight 63.503 kg 64 kg Intake: Intake, IV Titration 344.5 Amount Diltiazem 50 mg In Sodium 94.5 Chloride 0.9% 40 ml @ 10 MG/HR 10 mls/hr IV .Q5H CARMENZA Rx#:[id number] Levofloxacin 750Mg-D5w 150 Pmx 750 mg In Dextrose/ Water 1 150ml.bag @ 100 mls/hr IVPB Q24H CARMENZA Rx#: [id number] metroNIDAZOLE-NS PMX 500 100 mg In Saline 1 100ml.bag @ 100 mls/hr IVPB Q8HR CARMENZA Rx#:[id number] Output: Gastric Drainage 125 Urine 300 0 400 Other: Voiding Method Toilet # Voids 0 1 - Exam GEN. APPEARANCE: Appears to be in mild distress because of the nausea HEAD EXAM: atraumatic, normocephalic, normal inspection EYE EXAM: No pallor or icterus ENT EXAM: normal exam, mucous membranes moist NECK EXAM: normal inspection. Absent: tenderness, meningismus, full ROM, lymphadenopathy RESPIRATORY EXAM: Bilateral breath sounds positive with few rhonchi scattered CARDIOVASCULAR EXAM: S1 and S2 heard GI/ABDOMINAL EXAM: soft, mild tenderness in all quadrants, no guarding or rigidity, hypoactive bowel sounds EXTREMITIES EXAM: no pedal edema, joint swelling, calf tenderness NEUROLOGICAL EXAM: alert, oriented X3, no focal neurological deficits PSYCHIATRIC EXAM: normal affect, normal mood SKIN EXAM: warm, dry, intact, normal color. Absent: rash - Labs CBC & Chem 7: 01/07/18 06:05 01/07/18 06:05 Labs: Abnormal Lab Results - Last 24 Hours (Table) 01/07/18 01/07/18 01/07/18 Range/Units 06:04 06:05 06:05 WBC 20.9 H (3.8-10.6) k/uL RBC 3.34 L (3.80-5.40) m/uL Hgb 9.8 L (11.4-16.0) gm/dL Hct 31.6 L (34.0-46.0) % RDW 19.1 H (11.5-15.5) % Plt Count 145 L (150-450) k/uL Neutrophils # (Manual) 15.60 H (1.3-7.7) k/uL Lymphocytes # (Manual) 4.81 H (1.0-4.8) k/uL Potassium 3.3 L (3.5-5.1) mmol/L Chloride 109 H (98-107) mmol/L Carbon Dioxide 20 L (22-30) mmol/L Glucose 121 H (74-99) mg/dL POC Glucose (mg/dL) 135 H (75-99) mg/dL Microbiology - Last 24 Hours (Table) 01/06/18 12:12 Blood Culture - Preliminary Blood No Growth after 24 hours 01/06/18 12:12 Urine Culture - Preliminary Urine,Clean Catch Assessment and Plan Assessment: ASSESSMENT Acute small bowel obstruction Sepsis - source of infection being GI/ tract Recent history of UTI Ovarian cancer Right ureteric stent History of exploratory laparotomy 2 Right lower extremity DVT in 2014 GERD History of anxiety and depression Multiple drug ALLERGIES Plan: Patient kept nothing by mouth and NG tube. Empirically started on levofloxacin and Flagyl pending urine and blood cultures. IV Cardizem for heart rate control. GI/ DVT prophylaxis. Surgical consult has been obtained- to continue with NG tube for now as the patient had a small bowel movement this morning. But if the patientnot showing any signs of improvement, will need to transfer her to [facility], as she had most of her surgeries done there. Overall prognosis is poor due to chronic multiple medical conditions. Will follow the patient closely further recommendations to follow depending on the progress of the patient.
[2018-01-07] MEDS ORDERED: Potassium Replacement Protocol 1 EACH MISC MISCELLANE PRN (19:35)
[2018-01-07] MEDS: POTASSIUM CHLORIDE 10 MEQ in WATER FOR INJECTION 1 100ML.BAG IVPB SCH ×2 (22:18→23:48)
[2018-01-08] MEDS: LORazepam 2 MG/ML INJ IV PRN ×3 (01:39→23:08)
[2018-01-08] MEDS: POTASSIUM CHLORIDE 10 MEQ in WATER FOR INJECTION 1 100ML.BAG IVPB SCH ×2 (03:22→03:23)
[2018-01-08] MEDS: DILTIAZEM 50 MG in SODIUM CHLORIDE 0.9% 40 ML IV SCH ×5 (03:23→20:42)
[2018-01-08] MEDS: HYDROmorphone 1 MG/ML 1 ML SYRINGE IVP PRN ×5 (03:37→20:23)
[2018-01-08 06:37] LABS: Anisocytosis Slight; Basophils % (A) 0 %; Eosinophils % (A) 0 %; HCT 26.3 % (34.0-46.0); HGB 8.5 gm/dL (11.4-16.0); Hypochromasia Slight; Lymphocytes # (A) 1.3 k/uL (1.0-4.8); Lymphocytes % (A) 9 %; MCH 29.6 pg (25.0-35.0); MCHC 32.2 g/dL (31.0-37.0); MCV 91.8 fL (80.0-100.0); Monocytes # (A) 0.7 k/uL (0-1.0); Monocytes % (A) 5 %; Neutrophils # (A) 12.7 k/uL (1.3-7.7); Neutrophils % (A) 85 %; Platelet Count 113 k/uL (150-450); RBC 2.86 m/uL (3.80-5.40); RDW 19.1 % (11.5-15.5); WBC 15.1 k/uL (3.8-10.6)
[2018-01-08] MEDS: ONDANSETRON 4 MG/2 ML VIAL IVP PRN ×3 (06:53→23:26)
[2018-01-08] MEDS: HEPARIN SODIUM,PORCINE 5,000 UNIT/ML 1 ML VIAL SQ SCH ×3 (09:08→23:11)
[2018-01-08] MEDS: PANTOPRAZOLE 40 MG/10 ML VIAL IV SCH (09:09)
[2018-01-08 09:12] LABS: Albumin 3.1 g/dL (3.5-5.0); Anion Gap 9 mmol/L; Calcium 9.3 mg/dL (8.4-10.2); Carbon Dioxide 23 mmol/L (22-30); Chloride 108 mmol/L (98-107); Glucose 100 mg/dL (74-99); Sodium 140 mmol/L (137-145); Total Bilirubin 0.6 mg/dL (0.2-1.3); Total Protein 5.9 g/dL (6.3-8.2)
[2018-01-08 09:25] LABS: Blood Urea Nitrogen 8 mg/dL (7-17); Potassium 3.9 mmol/L (3.5-5.1)
[2018-01-08 09:26] LABS: ALT 20 U/L (9-52); AST 31 U/L (14-36); Alkaline Phosphatase 89 U/L (38-126)
[2018-01-08] MEDS: metroNIDAZOLE-NS PMX 500 MG in SALINE 1 100ML.BAG IVPB SCH ×3 (10:52→23:08)
--- NOTE | 2018-01-08 13:37 | P.PN ---
Subjective Progress Note Date: 01/08/18 Patient seen and examined at bedside. She states that her abdominal pain appears to be improving. She is uncomfortable with the nasogastric tube. She states that she did have a very small bowel movement yesterday and has had some flatus today. Abdominal x-ray was performed that did show a normal gas pattern. The patient still complains of some nausea but denies any emesis episodes. Objective - Vital Signs Vital signs: Vital Signs Temp 98.2 F 01/08/18 08:00 Pulse 118 H 01/08/18 12:00 Resp 16 01/08/18 12:00 BP 154/79 01/08/18 12:00 Pulse Ox 95 01/08/18 12:00 Intake & Output 01/07/18 01/08/18 01/08/18 18:59 06:59 18:59 Intake Total 344.5 98.333 70.167 Output Total 525 1350 50 Balance -180.5 -1251.667 20.167 Weight 64 kg 64 kg Intake: Intake, IV Titration 344.5 98.333 70.167 Amount Diltiazem 50 mg In Sodium 94.5 98.333 70.167 Chloride 0.9% 40 ml @ 10 MG/HR 10 mls/hr IV .Q5H CARMENZA Rx#:[id number] Levofloxacin 750Mg-D5w 150 Pmx 750 mg In Dextrose/ Water 1 150ml.bag @ 100 mls/hr IVPB Q24H CARMENZA Rx#: [id number] metroNIDAZOLE-NS PMX 500 100 mg In Saline 1 100ml.bag @ 100 mls/hr IVPB Q8HR CARMENZA Rx#:[id number] Output: Gastric Drainage 125 150 50 Urine 400 1200 Other: Voiding Method Toilet Toilet Bedside Commode Bedside Commode # Voids 1 1 - Constitutional General appearance: Present: cooperative, no acute distress - EENT Eyes: Present: EOMI, PERRLA - Respiratory Details: No difficulty with respiration - Gastrointestinal Gastrointestinal Comment(s): Soft, mild lower abdominal tenderness, nondistended, no rebound, no guarding - Musculoskeletal Musculoskeletal: Present: generalized weakness - Psychiatric Psychiatric: Present: A&O x's 3 - Labs CBC & Chem 7: 01/08/18 06:12 01/08/18 08:25 Labs: Abnormal Lab Results - Last 24 Hours (Table) 01/08/18 01/08/18 Range/Units 06:12 08:25 WBC 15.1 H (3.8-10.6) k/uL RBC 2.86 L (3.80-5.40) m/uL Hgb 8.5 L (11.4-16.0) gm/dL Hct 26.3 L (34.0-46.0) % RDW 19.1 H (11.5-15.5) % Plt Count 113 L (150-450) k/uL Neutrophils # 12.7 H (1.3-7.7) k/uL Chloride 108 H (98-107) mmol/L Glucose 100 H (74-99) mg/dL Total Protein 5.9 L (6.3-8.2) g/dL Albumin 3.1 L (3.5-5.0) g/dL Microbiology - Last 24 Hours (Table) 01/06/18 12:12 Urine Culture - Final Urine,Clean Catch 01/06/18 12:12 Blood Culture - Preliminary Blood No Growth after 24 hours Assessment and Plan (1) Small bowel obstruction Narrative/Plan: 62-year-old female with small bowel obstruction - The patient has had a small bowel movement and has had flatus. We will clamp the NG tube and start a trial of clear liquid diet. - Continue anti-emetics - Continue PPI Current Visit: Yes Status: Acute Code(s): K56.609 - UNSP INTESTNL OBST, UNSP TO PARTIAL VERSUS COMPLETE OBST SNOMED Code(s): 750333364
[2018-01-08] MEDS: LEVOFLOXACIN 750MG-D5W PMX 750 MG in DEXTROSE/WATER 1 150ML.BAG IVPB SCH (17:02)
[2018-01-09] MEDS: HYDROmorphone 1 MG/ML 1 ML SYRINGE IVP PRN ×6 (00:28→22:12)
[2018-01-09] MEDS: SODIUM CHLORIDE 0.9% 1,000 ML IV SCH ×4 (06:44→20:11)
[2018-01-09] MEDS: HEPARIN SODIUM,PORCINE 5,000 UNIT/ML 1 ML VIAL SQ SCH ×2 (09:25→16:57)
[2018-01-09] MEDS: metroNIDAZOLE-NS PMX 500 MG in SALINE 1 100ML.BAG IVPB SCH ×2 (09:25→16:58)
[2018-01-09] MEDS: ONDANSETRON 4 MG/2 ML VIAL IVP PRN ×2 (09:26→20:47)
[2018-01-09] MEDS: LORazepam 2 MG/ML INJ IV PRN ×3 (09:49→23:59)
--- NOTE | 2018-01-09 10:20 | P.PN ---
Subjective Progress Note Date: 01/09/18 Patient seen and examined at bedside. She is doing well. She states she still has some nausea but has had bowel function. NG tube was clamped yesterday. Objective - Vital Signs Vital signs: Vital Signs Temp 97.6 F 01/09/18 10:11 Pulse 74 01/09/18 10:11 Resp 18 01/09/18 10:11 BP 146/78 01/09/18 10:11 Pulse Ox 97 01/09/18 10:11 Intake & Output 01/08/18 01/09/18 01/09/18 18:59 06:59 18:59 Intake Total 111.000 700 Output Total 850 3075 Balance -739.000 -2375 Weight 64 kg 64 kg Intake: Intake, IV Titration 111.000 700 Amount Diltiazem 50 mg In Sodium 111.000 50 Chloride 0.9% 40 ml @ 10 MG/HR 10 mls/hr IV .Q5H CARMENZA Rx#:[id number] Sodium Chloride 0.9% 1, 600 000 ml @ 75 mls/hr IV . [id number] CARMENZA Rx#:[id number] metroNIDAZOLE-NS PMX 500 50 mg In Saline 1 100ml.bag @ 100 mls/hr IVPB Q8HR CARMENZA Rx#:[id number] Oral 0 Output: Gastric Drainage 50 675 Urine 800 2400 Other: Voiding Method Toilet Toilet Bedside Commode Bedside Commode # Voids 1 - Constitutional General appearance: Present: cooperative, no acute distress - Respiratory Details: No difficulty with respiration - Gastrointestinal Gastrointestinal Comment(s): Soft, nontender, nondistended, no rebound, no guarding - Musculoskeletal Musculoskeletal: Present: generalized weakness - Psychiatric Psychiatric: Present: A&O x's 3 - Labs CBC & Chem 7: 01/08/18 06:12 01/08/18 08:25 Labs: Microbiology - Last 24 Hours (Table) 01/06/18 12:12 Blood Culture - Preliminary Blood No Growth after 48 hours Assessment and Plan (1) Small bowel obstruction Narrative/Plan: 62-year-old female with small bowel obstruction - Small bowel obstruction appears to be resolving, patient has had bowel movement and is passing flatus - Discontinue NG tube - Continue clear liquid diet - Continue anti-emetics - Continue PPI Current Visit: Yes Status: Acute Code(s): K56.609 - [facility] INTESTNL OBST, UNSP TO PARTIAL VERSUS COMPLETE OBST SNOMED Code(s): 422016342
[2018-01-09] MEDS: PANTOPRAZOLE 40 MG/10 ML VIAL IV SCH (12:15)
[2018-01-09] MEDS: LEVOFLOXACIN 750MG-D5W PMX 750 MG in DEXTROSE/WATER 1 150ML.BAG IVPB SCH (14:50)
[2018-01-09] MEDS: DILTIAZEM 50 MG in SODIUM CHLORIDE 0.9% 40 ML IV SCH ×2 (19:38→19:43)
--- NOTE | 2018-01-09 20:29 | PN ---
PROGRESS NOTE DATE OF SERVICE: 01/09/2018. CHIEF COMPLAINT: Bowel obstruction with CA of the ovary. HISTORY OF PRESENT ILLNESS: This lady is doing a bit better. She did have a bowel movement. The surgery is recommending removing the NG tube today. PHYSICAL EXAM: She is afebrile and chest is clear. Cardiac exam is normal. Abdomen is soft and she has very little tenderness and NG tube is in place. IMPRESSION: 1. Small-bowel obstruction. 2. Carcinoma of the ovary. PLAN: The nasogastric tube will be removed today and will track her progress. MMODL / IJN: [id number] /
--- NOTE | 2018-01-09 20:43 | PN ---
PROGRESS NOTE DATE OF SERVICE: 01/08/2018. CHIEF COMPLAINT: Bowel obstruction. HISTORY OF PRESENT ILLNESS: This lady was admitted in my absence. She is currently having waves of crampy abdominal pain. She has had no fever or chills. She is being followed by Surgery. PHYSICAL EXAM: She has had generalized tenderness across the lower abdomen. Chest is clear and cardiac is normal. IMPRESSION: 1. Small-bowel obstruction. 2. Uncontrolled carcinoma of the ovary. 3. Obstructive ureteropathy. PLAN: Continue with IV fluids and keep patient n.p.o. She is being followed by Surgery. MMODL / IJN: [id number] /
[2018-01-10] MEDS: HYDROmorphone 1 MG/ML 1 ML SYRINGE IVP PRN ×6 (02:36→23:11)
[2018-01-10] MEDS: ONDANSETRON 4 MG/2 ML VIAL IVP PRN ×3 (04:30→21:14)
[2018-01-10] MEDS: DILTIAZEM 50 MG in SODIUM CHLORIDE 0.9% 40 ML IV SCH ×6 (04:35→23:18)
[2018-01-10] MEDS: HEPARIN SODIUM,PORCINE 5,000 UNIT/ML 1 ML VIAL SQ SCH ×4 (08:24→23:10)
[2018-01-10] MEDS: PANTOPRAZOLE 40 MG/10 ML VIAL IV SCH (08:24)
[2018-01-10] MEDS: metroNIDAZOLE-NS PMX 500 MG in SALINE 1 100ML.BAG IVPB SCH ×4 (08:34→23:12)
[2018-01-10] MEDS: LORazepam 2 MG/ML INJ IV PRN ×3 (08:34→21:42)
[2018-01-10] MEDS: SODIUM CHLORIDE 0.9% 1,000 ML IV SCH ×2 (12:12→23:19)
[2018-01-10] MEDS: METOCLOPRAMIDE 5 MG/ML 2 ML VIAL IVP SCH ×2 (13:02→17:32)
[2018-01-10] MEDS: LEVOFLOXACIN 750MG-D5W PMX 750 MG in DEXTROSE/WATER 1 150ML.BAG IVPB SCH (13:02)
--- NOTE | 2018-01-10 16:06 | PN ---
PROGRESS NOTE DATE OF SERVICE: 01/10/2018 CHIEF COMPLAINT: Slowly resolving small bowel obstruction. HISTORY OF PRESENT ILLNESS: This lady is passing gas and having small amounts of stool as well. She has complained today of a lot of nausea. She has had no fever or chills. PHYSICAL EXAMINATION: She remains slightly pale. Cardiac exam is normal. The chest is clear. The abdomen is soft and she has some mild generalized tenderness throughout. Bowel sounds are not heard. IMPRESSION: 1. Resolving small bowel obstruction. 2. Nausea, etiology unknown. 3. Carcinoma of the ovary. PLAN: Continue to monitor her GI activity in hopes that she will be able to be discharged soon. MMODL / IJN: [id number] /
[2018-01-11] MEDS: METOCLOPRAMIDE 5 MG/ML 2 ML VIAL IVP SCH ×5 (00:13→23:04)
[2018-01-11] MEDS: HYDROmorphone 1 MG/ML 1 ML SYRINGE IVP PRN ×6 (02:03→20:39)
[2018-01-11] MEDS: DILTIAZEM 50 MG in SODIUM CHLORIDE 0.9% 40 ML IV SCH ×5 (02:47→23:17)
[2018-01-11] MEDS: LORazepam 2 MG/ML INJ IV PRN ×3 (04:20→18:30)
[2018-01-11] MEDS: ONDANSETRON 4 MG/2 ML VIAL IVP PRN ×3 (04:45→20:54)
[2018-01-11] MEDS: HEPARIN SODIUM,PORCINE 5,000 UNIT/ML 1 ML VIAL SQ SCH ×3 (08:29→23:04)
[2018-01-11] MEDS: PANTOPRAZOLE 40 MG/10 ML VIAL IV SCH (08:29)
[2018-01-11] MEDS: metroNIDAZOLE-NS PMX 500 MG in SALINE 1 100ML.BAG IVPB SCH ×3 (09:17→23:04)
[2018-01-11 09:53] VITALS: BMI 21.7
[2018-01-11 11:55] LABS: ALT 28 U/L (9-52); AST 28 U/L (14-36); Albumin 2.8 g/dL (3.5-5.0); Alkaline Phosphatase 64 U/L (38-126); Anion Gap 7 mmol/L; Blood Urea Nitrogen 2 mg/dL (7-17); Calcium 8.5 mg/dL (8.4-10.2); Carbon Dioxide 28 mmol/L (22-30); Chloride 104 mmol/L (98-107); Glucose 95 mg/dL (74-99); Sodium 139 mmol/L (137-145); Total Bilirubin 0.4 mg/dL (0.2-1.3); Total Protein 5.2 g/dL (6.3-8.2)
[2018-01-11 12:01] LABS: Potassium 2.4 mmol/L (3.5-5.1)
[2018-01-11 12:03] LABS: Anisocytosis Slight; Basophils % (A) 0 %; Hypochromasia Slight; Lymphocytes # (A) 1.2 k/uL (1.0-4.8); Macrocytosis Slight
[2018-01-11] MEDS ORDERED: Potassium Replacement Protocol 1 EACH MISC MISCELLANE PRN (12:06)
[2018-01-11 12:15] LABS: Eosinophils # (A) 0.1 k/uL (0-0.7); Eosinophils % (A) 1 %; HCT 26.6 % (34.0-46.0); HGB 8.5 gm/dL (11.4-16.0); Lymphocytes % (A) 19 %; MCH 30.8 pg (25.0-35.0); MCHC 32.1 g/dL (31.0-37.0); MCV 95.8 fL (80.0-100.0); Monocytes # (A) 0.4 k/uL (0-1.0); Monocytes % (A) 6 %; Neutrophils # (A) 4.5 k/uL (1.3-7.7); Neutrophils % (A) 70 %; Platelet Count 97 k/uL (150-450); RBC 2.78 m/uL (3.80-5.40); RDW 18.2 % (11.5-15.5); WBC 6.4 k/uL (3.8-10.6)
[2018-01-11] MEDS: POTASSIUM CHLORIDE ER 20 MEQ TAB.ER PO SCH ×5 (12:27→21:36)
--- NOTE | 2018-01-11 13:47 | P.PN ---
Subjective Progress Note Date: 01/11/18 Patient seen and examined at bedside. Complains of nausea. He is having flatus. Has not had bowel movement and last day. She is tolerating a clear liquid diet. She states that she is able to tolerate it if she goes slowly. She has not vomited. Objective - Vital Signs Vital signs: Vital Signs Temp 98.7 F 01/11/18 11:41 Pulse 96 01/11/18 11:41 Resp 20 01/11/18 11:41 BP 160/82 01/11/18 11:41 Pulse Ox 96 01/11/18 11:41 Intake & Output 01/10/18 01/11/18 01/11/18 18:59 06:59 18:59 Intake Total 2002.083 983.917 525.167 Output Total 600 100 800 Balance 1402.083 883.917 -274.833 Weight 61.2 kg 61.2 kg Intake: IV 935 940 Diltiazem 50 mg In Sodium 60 15 Chloride 0.9% 40 ml @ 10 MG/HR 10 mls/hr IV .Q5H CARMENZA Rx#:[id number] Levofloxacin 750Mg-D5w 150 Pmx 750 mg In Dextrose/ Water 1 150ml.bag @ 100 mls/hr IVPB Q24H CARMENZA Rx#: [id number] Sodium Chloride 0.9% 1, 525 825 000 ml @ 75 mls/hr IV . [id number] CARMENZA Rx#:[id number] metroNIDAZOLE-NS PMX 500 200 100 mg In Saline 1 100ml.bag @ 100 mls/hr IVPB Q8HR CARMENZA Rx#:[id number] Intake, IV Titration 67.083 43.917 45.167 Amount Diltiazem 50 mg In Sodium 67.083 43.917 45.167 Chloride 0.9% 40 ml @ 10 MG/HR 10 mls/hr IV .Q5H CARMENZA Rx#:[id number] Oral 1000 480 Output: Urine 600 100 800 Other: Voiding Method Toilet Bedside Commode # Voids 2 2 - Constitutional General appearance: Present: cooperative, no acute distress - Respiratory Details: No difficulty with respiration - Gastrointestinal Gastrointestinal Comment(s): Soft, nontender, nondistended, no rebound, no guarding - Psychiatric Psychiatric: Present: A&O x's 3 - Labs CBC & Chem 7: 01/11/18 11:27 01/11/18 11:27 Labs: Abnormal Lab Results - Last 24 Hours (Table) 01/11/18 01/11/18 Range/Units 11:27 11:27 RBC 2.78 L (3.80-5.40) m/uL Hgb 8.5 L (11.4-16.0) gm/dL Hct 26.6 L (34.0-46.0) % RDW 18.2 H (11.5-15.5) % Potassium 2.4 L* (3.5-5.1) mmol/L BUN 2 L (7-17) mg/dL Creatinine 0.50 L (0.52-1.04) mg/dL Total Protein 5.2 L (6.3-8.2) g/dL Albumin 2.8 L (3.5-5.0) g/dL Microbiology - Last 24 Hours (Table) 01/06/18 12:12 Blood Culture - Preliminary Blood No Growth after 96 hours Assessment and Plan (1) Small bowel obstruction Narrative/Plan: 62-year-old female with small bowel obstruction - Small bowel obstruction appears to be resolving, patient has had bowel movement and is passing flatus - Reglan added for anti-emetic - Advance to full liquid diet - Correct electrolyte imbalance - Continue PPI Current Visit: Yes Status: Acute Code(s): K56.609 - UNSP INTESTNL OBST, UNSP TO PARTIAL VERSUS COMPLETE OBST SNOMED Code(s): 105579271
[2018-01-11] MEDS: LEVOFLOXACIN 750MG-D5W PMX 750 MG in DEXTROSE/WATER 1 150ML.BAG IVPB SCH (14:00)
[2018-01-11 14:09] LABS: Poikilocytosis (M) Present; Polychromasia Present
--- NOTE | 2018-01-11 17:46 | PN ---
PROGRESS NOTE DATE OF SERVICE: 01/11/2018 CHIEF COMPLAINT: CA of the ovary with partial bowel obstruction. HISTORY OF PRESENT ILLNESS: This lady is doing a little bit better. She is trying to eat a soft diet. She is passing gas. She has not had a bowel movement today. PHYSICAL EXAM: She remains pale. Chest is clear. Cardiac exam is normal. The abdomen is slightly protuberant, soft. IMPRESSION: Bowel obstruction, partial that is resolving. PLAN: Try to progress activity and diet and try to discharge her soon as possible. Labs will be repeated today. MMODL / IJN: [id number] /
[2018-01-11] MEDS: SODIUM CHLORIDE 0.9% 1,000 ML IV SCH (20:43)
[2018-01-11] MEDS: hydrALAZINE HCL 20 MG/ML 1 ML VIAL IVP PRN (23:04)
[2018-01-12] MEDS: HYDROmorphone 1 MG/ML 1 ML SYRINGE IVP PRN ×6 (00:02→20:02)
[2018-01-12] MEDS ORDERED: HYDROmorphone 1 MG/ML 1 ML SYRINGE IVP PRN (01:00)
[2018-01-12] MEDS: hydrALAZINE HCL 20 MG/ML 1 ML VIAL IVP PRN (02:34)
[2018-01-12] MEDS: LORazepam 2 MG/ML INJ IV PRN ×4 (02:34→21:43)
[2018-01-12] MEDS: SODIUM CHLORIDE 0.9% 1,000 ML IV SCH ×2 (02:34→19:58)
[2018-01-12] MEDS: ONDANSETRON 4 MG/2 ML VIAL IVP PRN ×3 (04:00→21:43)
[2018-01-12] MEDS: METOCLOPRAMIDE 5 MG/ML 2 ML VIAL IVP SCH ×3 (05:25→18:20)
[2018-01-12] MEDS: DILTIAZEM 50 MG in SODIUM CHLORIDE 0.9% 40 ML IV SCH ×2 (06:40→07:23)
[2018-01-12 06:44] LABS: Anion Gap 5 mmol/L; Blood Urea Nitrogen <2 mg/dL (7-17); Calcium 9.1 mg/dL (8.4-10.2); Carbon Dioxide 28 mmol/L (22-30); Chloride 106 mmol/L (98-107); Glucose 101 mg/dL (74-99); Potassium 3.1 mmol/L (3.5-5.1); Sodium 139 mmol/L (137-145)
[2018-01-12 06:46] LABS: Magnesium 0.7 mg/dL (1.6-2.3)
[2018-01-12] MEDS ORDERED: Magnesium Replacement Protocol 1 EACH MISC MISCELLANE PRN (07:15)
[2018-01-12] MEDS: POTASSIUM CHLORIDE ER 20 MEQ TAB.ER PO SCH ×4 (07:27→19:59)
[2018-01-12] MEDS: MAGNESIUM SULFATE-D5W PMX 1 GM in DEXTROSE/WATER 1 100ML.BAG IVPB SCH ×4 (07:34→14:09)
[2018-01-12] MEDS ORDERED: POTASSIUM CHLORIDE 10 MEQ in WATER FOR INJECTION 1 100ML.BAG IVPB SCH (08:00)
[2018-01-12] MEDS: HEPARIN SODIUM,PORCINE 5,000 UNIT/ML 1 ML VIAL SQ SCH ×2 (08:15→16:43)
[2018-01-12] MEDS: PANTOPRAZOLE 40 MG/10 ML VIAL IV SCH (08:16)
[2018-01-12] MEDS: metroNIDAZOLE-NS PMX 500 MG in SALINE 1 100ML.BAG IVPB SCH ×2 (08:17→17:04)
[2018-01-12] MEDS ORDERED: METOPROLOL SUCCINATE (ER) 100 MG TAB.ER.24H PO STA (11:09)
[2018-01-12] MEDS: LEVOFLOXACIN 750MG-D5W PMX 750 MG in DEXTROSE/WATER 1 150ML.BAG IVPB SCH (15:19)
[2018-01-12] MEDS: hydrALAZINE HCL 50 MG TAB PO SCH ×2 (16:43→21:43)
--- NOTE | 2018-01-12 17:44 | PN ---
PROGRESS NOTE DATE OF SERVICE: 01/12/2018. CHIEF COMPLAINT: CA of ovary. HISTORY OF PRESENT ILLNESS: This lady is not doing well. She is not eating well and she is not passing stool. PHYSICAL EXAM: Her chest is clear. Cardiac is normal. The abdomen is somewhat distended and she is pale and weak. IMPRESSION: 1. Carcinoma of the ovary. 2. Partial mild bowel obstruction. 3. Renal failure with ureteral obstruction. PLAN: 1. Remove telemetry. 2. Stop Cardizem. 3. Add beta mayra for tachycardia. 4. Add hydralazine for hypertension. 5. Move to Oncology. 6. I have discussed with the patient her failure to significantly improve and that she has to consider post hospital plan such as group home, palliative care, hospice, etc. MMDAVIONL / ROBERTN: [id number] /
[2018-01-13] MEDS: HYDROmorphone 1 MG/ML 1 ML SYRINGE IVP PRN ×8 (00:04→23:47)
[2018-01-13] MEDS: metroNIDAZOLE-NS PMX 500 MG in SALINE 1 100ML.BAG IVPB SCH ×2 (00:17→07:59)
[2018-01-13] MEDS: METOCLOPRAMIDE 5 MG/ML 2 ML VIAL IVP SCH ×5 (00:17→23:47)
[2018-01-13] MEDS: HEPARIN SODIUM,PORCINE 5,000 UNIT/ML 1 ML VIAL SQ SCH ×4 (00:17→23:47)
[2018-01-13] MEDS: LORazepam 2 MG/ML INJ IV PRN ×3 (03:51→19:16)
[2018-01-13] MEDS: SODIUM CHLORIDE 0.9% 1,000 ML IV SCH ×2 (05:41→11:04)
[2018-01-13] MEDS: hydrALAZINE HCL 50 MG TAB PO SCH ×3 (07:58→21:08)
[2018-01-13] MEDS: PANTOPRAZOLE 40 MG/10 ML VIAL IV SCH (07:59)
[2018-01-13] MEDS: ONDANSETRON 4 MG/2 ML VIAL IVP PRN ×2 (07:59→19:13)
--- NOTE | 2018-01-13 10:31 | P.PN ---
Progress Note - Text Progress Note Date: 01/13/18 The patient is taken about 25% of breakfast. No vomiting. No plan for surgical intervention at this time due to her carcinomatosis.
[2018-01-13] MEDS: LEVOFLOXACIN 750MG-D5W PMX 750 MG in DEXTROSE/WATER 1 150ML.BAG IVPB SCH (16:22)
[2018-01-13] MEDS: metroNIDAZOLE 500 MG TAB PO SCH ×2 (16:37→23:47)
[2018-01-13] MEDS: LEVOFLOXACIN 750 MG TAB PO SCH (16:37)
[2018-01-13] MEDS ORDERED: MAGNESIUM SULFATE-D5W PMX 1 GM in DEXTROSE/WATER 1 100ML.BAG IVPB ONE (18:03)
[2018-01-14] MEDS: LORazepam 2 MG/ML INJ IV PRN ×2 (01:35→19:39)
[2018-01-14] MEDS: HYDROmorphone 1 MG/ML 1 ML SYRINGE IVP PRN ×7 (03:05→21:36)
[2018-01-14] MEDS: ONDANSETRON 4 MG/2 ML VIAL IVP PRN (03:07)
[2018-01-14] MEDS: METOCLOPRAMIDE 5 MG/ML 2 ML VIAL IVP SCH ×4 (06:09→23:42)
[2018-01-14] MEDS: PANTOPRAZOLE 40 MG TABLET PO SCH (08:26)
[2018-01-14] MEDS: metroNIDAZOLE 500 MG TAB PO SCH ×3 (08:26→23:42)
[2018-01-14] MEDS: hydrALAZINE HCL 50 MG TAB PO SCH ×3 (08:26→21:40)
[2018-01-14] MEDS: HEPARIN SODIUM,PORCINE 5,000 UNIT/ML 1 ML VIAL SQ SCH ×3 (08:26→23:42)
[2018-01-14] MEDS: SODIUM CHLORIDE 0.9% 1,000 ML IV SCH ×2 (11:22→22:23)
--- NOTE | 2018-01-14 12:11 | P.PN ---
Subjective Progress Note Date: 01/14/18 Principal diagnosis: Partial bowel obstruction with ovarian cancer The patient is seen on rounds. She is not having any vomiting. No bowel movement. She hasn't been able to eat or drink anything significant. Just enough to keep her mouth moist. Continues to have abdominal pain. Objective - Vital Signs Vital signs: Vital Signs Temp 98.2 F 01/14/18 05:45 Pulse 115 H 01/14/18 05:45 Resp 16 01/14/18 05:45 BP 154/84 01/14/18 05:45 Pulse Ox 95 01/14/18 07:52 Intake & Output 01/13/18 01/14/18 01/14/18 18:59 06:59 18:59 Intake Total 100 Balance 100 Intake: Intake, IV Titration 100 Amount metroNIDAZOLE-NS PMX 500 100 mg In Saline 1 100ml.bag @ 100 mls/hr IVPB Q8HR CARMENZA Rx#:[id number] Other: Voiding Method Bedside Commode Bedside Commode Bedside Commode # Voids 5 - Constitutional General appearance: Present: cooperative, no acute distress - Gastrointestinal General gastrointestinal: Present: soft (Softly distended) Localized gastrointestinal: tender: diffuse - Labs CBC & Chem 7: 01/11/18 11:27 01/13/18 06:32 Labs: Abnormal Lab Results - Last 24 Hours (Table) 01/14/18 Range/Units 11:16 Magnesium 1.1 L (1.6-2.3) mg/dL Assessment and Plan (1) Ovarian cancer Current Visit: Yes Status: Acute Code(s): C56.9 - MALIGNANT NEOPLASM OF UNSPECIFIED OVARY SNOMED Code(s): 349763686 (2) Abdominal pain Current Visit: Yes Status: Acute Code(s): R10.9 - UNSPECIFIED ABDOMINAL PAIN SNOMED Code(s): 65404202 (3) Small bowel obstruction Current Visit: Yes Status: Acute Code(s): K56.609 - UNSP INTESTNL OBST, UNSP TO PARTIAL VERSUS COMPLETE OBST SNOMED Code(s): 805122187 Plan: Next chemotherapy is due Monday at [facility]. She seems to be asymptomatic high -grade partial bowel obstruction. Likely due to carcinomatosis. I would recommend she be transferred to [facility] where she can see her oncologist an oncologic surgeon needed
[2018-01-14] MEDS: LEVOFLOXACIN 750 MG TAB PO SCH (15:12)
[2018-01-14] MEDS: MAGNESIUM SULFATE-D5W PMX 1 GM in DEXTROSE/WATER 1 100ML.BAG IVPB SCH ×2 (19:38→22:23)
[2018-01-15] MEDS: HYDROmorphone 1 MG/ML 1 ML SYRINGE IVP PRN ×8 (00:32→22:34)
[2018-01-15] MEDS: ONDANSETRON 4 MG/2 ML VIAL IVP PRN ×2 (02:56→21:14)
[2018-01-15] MEDS: METOCLOPRAMIDE 5 MG/ML 2 ML VIAL IVP SCH ×4 (06:18→23:17)
[2018-01-15] MEDS: hydrALAZINE HCL 50 MG TAB PO SCH ×3 (08:01→21:14)
[2018-01-15] MEDS: HEPARIN SODIUM,PORCINE 5,000 UNIT/ML 1 ML VIAL SQ SCH ×3 (08:01→23:17)
[2018-01-15] MEDS: metroNIDAZOLE 500 MG TAB PO SCH ×3 (08:01→23:17)
[2018-01-15] MEDS: PANTOPRAZOLE 40 MG TABLET PO SCH (08:01)
[2018-01-15] MEDS: SODIUM CHLORIDE 0.9% 1,000 ML IV SCH ×2 (08:04→19:28)
[2018-01-15] MEDS ORDERED: Magnesium Replacement Protocol 1 EACH MISC MISCELLANE PRN (11:54)
[2018-01-15] MEDS: MAGNESIUM SULFATE-D5W PMX 1 GM in DEXTROSE/WATER 1 100ML.BAG IVPB SCH ×3 (12:42→15:53)
[2018-01-15] MEDS: LORazepam 2 MG/ML INJ IV PRN ×2 (16:01→22:05)
[2018-01-15] MEDS: LEVOFLOXACIN 750 MG TAB PO SCH (16:04)
[2018-01-15] MEDS: POLYETHYLENE GLYCOL 3350 17 GM POWD.PACK PO SCH (21:14)
--- NOTE | 2018-01-15 21:35 | PN ---
PROGRESS NOTE DATE OF SERVICE: 01/13/2018 CHIEF COMPLAINT: Bowel obstruction. This lady remains weak and still having lower abdominal pain. She has to get her to appointment, on Monday. PHYSICAL EXAM: Chest is clear. Cardiac exam is normal. IMPRESSION: Bowel obstruction. PLAN: Keep the patient as comfortable as possible and arrange for her to be transferred to . JIMMIE / ROBERTN: [id number] /
--- NOTE | 2018-01-15 21:49 | PN ---
PROGRESS NOTE DATE OF SERVICE: 01/14/2018 CHIEF COMPLAINT: Carcinoma of the ovary. HISTORY OF PRESENT ILLNESS: This lady is fairly stable. Discussion between the patient's significant other and Mrs. Galloway is centered around getting her from this hospital to her appointment, it is at noon on Monday. She likely will require an ambulance and it probably will not be covered. This discussed with the adult protective caseworker who will talk with the patient. PHYSICAL EXAM: Unchanged. IMPRESSION: 1. Bowel obstruction. 2. Carcinoma of the ovary. PLAN: She will be kept in the hospital until Monday morning and then transferred to [facility]. MMODL / IJN: [id number] /
[2018-01-15 22:40] VITALS: RESP 16
[2018-01-16] MEDS: HYDROmorphone 1 MG/ML 1 ML SYRINGE IVP PRN ×3 (01:31→07:44)
[2018-01-16] MEDS: LORazepam 2 MG/ML INJ IV PRN (03:58)
[2018-01-16] MEDS: METOCLOPRAMIDE 5 MG/ML 2 ML VIAL IVP SCH (05:33)
[2018-01-16 06:21] VITALS: BP 165/95; PULSE 110; TEMP 98.1
[2018-01-16] MEDS: hydrALAZINE HCL 50 MG TAB PO SCH (07:37)
[2018-01-16] MEDS: metroNIDAZOLE 500 MG TAB PO SCH (07:38)
[2018-01-16] MEDS: HEPARIN SODIUM,PORCINE 5,000 UNIT/ML 1 ML VIAL SQ SCH (07:38)
[2018-01-16] MEDS: PANTOPRAZOLE 40 MG TABLET PO SCH (07:38)
--- NOTE | 2018-01-16 07:56 | PN ---
PROGRESS NOTE CHIEF COMPLAINT: Carcinoma of the ovary. HISTORY OF PRESENT ILLNESS: This lady's condition is essentially unchanged. She has not had a bowel movement of late, and she has had no vomiting. She is having pain. PHYSICAL EXAM: Vital signs normal. She is afebrile. Chest is clear. Cardiac exam is normal. IMPRESSION: 1. Carcinoma of the ovary. 2. Ureteral obstruction. 3. Small bowel obstruction. PLAN: 1. I will try adding MiraLAX twice a day. 2. We will prepare her to leave the hospital tomorrow morning and go to [facility]. MMODL / IJN: [id number] /
[2018-01-16] MEDS: POLYETHYLENE GLYCOL 3350 17 GM POWD.PACK PO SCH (08:25)
--- NOTE | 2018-01-16 08:48 | DS ---
DISCHARGE SUMMARY DATE OF SERVICE: 01/16/2018. CHIEF COMPLAINT: Abdominal pain and bowel obstruction. HISTORY OF PRESENT ILLNESS AND PHYSICAL EXAM: The details of this lady's history and physical can be found in the initial workup. LABORATORY STUDIES: While she was in the hospital, she had laboratory studies, details of which can be found in the laboratory section of her chart. COURSE IN HOSPITAL: After admission, she was placed on bedrest, started on intravenous fluids, and required nasogastric tube drainage. However, eventually she started to pass gas and have small bowel movements. She was followed by Surgery who recommended not intervening. She continued to have episodes of crampy abdominal pain with stool retention. She had an appointment in [facility] with her oncologist and she, the family, and her physician wanted her to try to keep that appointment. Arrangements were made for her to be discharged early on the to keep a noon appointment at [facility]. FINAL DIAGNOSES: 1. Small bowel obstruction. 2. Carcinoma of the ovary. 3. Ureteral obstruction. PLAN: Discharge to [facility] on Monday. MMODL / ROBERTN: [id number] /
== END 2018-01-16 08:25 | disposition home or self-care (01) | DRG 872 ==
LOC: EC 10:29 → 6SEL 13:17 → 5MS5E 01-12 21:38
PROVIDERS: ADMIT Family Medicine; ATTEND Family Medicine
DX: A41.9 Sepsis, unspecified organism (principal); C56.9 Malignant neoplasm of unspecified ovary; C78.6 Secondary malignant neoplasm of retroperitoneum and peritoneum; N13.6 Pyonephrosis; F32.9 Major depressive disorder, single episode, unspecified; F41.9 Anxiety disorder, unspecified; Z16.21 Resistance to vancomycin; K21.9 Gastro-esophageal reflux disease without esophagitis; Z80.1 Family history of malignant neoplasm of trachea, bronchus and lung; Z82.0 Family history of epilepsy and other diseases of the nervous system; Z83.3 Family history of diabetes mellitus; Z85.028 Personal history of other malignant neoplasm of stomach; Z86.718 Personal history of other venous thrombosis and embolism; Z87.440 Personal history of urinary (tract) infections; Z87.442 Personal history of urinary calculi; Z90.710 Acquired absence of both cervix and uterus; Z79.891 Long term (current) use of opiate analgesic; Z79.899 Other long term (current) drug therapy; Z88.5 Allergy status to narcotic agent; Z88.0 Allergy status to penicillin; Z88.8 Allergy status to other drugs, medicaments and biological substances; Z91.041 Radiographic dye allergy status
CPT/HCPCS: 36415; 71045; 74019; 74177; 80048; 80053; 81001; 82150; 83605; 83690; 83735; 84132; 85025; 85610; 85730; 87040; 87086; 94760; 96361; 96374; 96375; 99285

== ENCOUNTER 2018-01-26 13:05 | Inpatient (IN) | payer BC ==
--- NOTE | 2018-01-26 13:26 | ED ---
General Adult HPI - General Chief complaint: Recheck/Abnormal Lab/Rx Stated complaint: Weakness, Palpitations Source: patient, EMS Mode of arrival: EMS Limitations: no limitations - History of Present Illness Initial comments: Dictation was produced using Quick[employer] dictation software. please excuse any grammatical, word or spelling errors. Chief Complaint: 62-year-old female past medical history of ovarian cancer undergoing active cancer treatment presents with low blood pressure at home. History of Present Illness: Patient is 62-year-old female presents with low blood pressure. Patient states she was at home when she checked her blood pressure and found a systolic in the 60s. She also had a low blood pressure yesterday with systolic in the 70s. She called EMS She was concerned. Patient states she has been feeling slightly weak and felt like her heart was racing. She called EMS. She was admitted to the hospital for electric derangement and dehydration. Denies any other complaints. The ROS documented in this emergency department record has been reviewed and confirmed by me. Those systems with pertinent positive or negative responses have been documented in the HPI. All other systems are other negative and/or noncontributory. - Related Data Home Medications Medication Instructions Recorded Confirmed ALPRAZolam [Xanax] 0.25 mg PO HS PRN 08/25/14 01/26/18 Diltiazem HCl [Diltiazem 24Hr ER] 120 mg PO DAILY 08/25/14 01/26/18 Polyethylene Glycol 3350 [Miralax] 17 gm PO BID PRN 10/05/17 01/26/18 Gabapentin [Neurontin] 300 mg PO TID 10/17/17 01/26/18 Acetaminophen Tab [Tylenol] 325 mg PO Q4H PRN 12/21/17 01/26/18 Escitalopram [Lexapro] 10 mg PO DAILY 12/21/17 01/26/18 Ferrous Sulfate [Iron (65 MG 325 mg PO DAILY 12/21/17 01/26/18 Elemental)] Hydrocodone/Acetaminophen [[place] 1 tab PO Q4HR PRN 12/21/17 01/26/18 5-325] Magnesium Hydroxide [Milk of 2,400 mg PO DAILY PRN 12/21/17 01/26/18 Magnesia] Ondansetron HCl [Zofran] 8 mg PO Q6H PRN 12/21/17 01/26/18 cloNIDine HCL [Catapres] 0.1 mg PO DAILY 12/21/17 01/26/18 Previous Rx's Medication Instructions Recorded Levofloxacin [Levaquin] 750 mg PO DAILY@1600 #10 tab 01/15/18 Pantoprazole [Protonix] 40 mg PO AC-BRKFST #30 tablet. 01/15/18 hydrALAZINE HCL [Apresoline] 50 mg PO TID #90 tab 01/15/18 metroNIDAZOLE [Flagyl] 500 mg PO Q8HR #30 tab 01/15/18 Allergies Allergy/AdvReac Type Severity Reaction Status Date / Time adhesive Allergy Rash/Hives Verified 01/26/18 13:31 carboplatin Allergy Anaphylaxis Verified 01/26/18 13:31 iodine Allergy Rash/Hives Verified 01/26/18 13:31 Penicillins Allergy Rash/Hives Verified 01/26/18 13:31 codeine AdvReac Nausea & Verified 01/26/18 13:31 Vomiting morphine AdvReac Nausea & Verified 01/26/18 13:31 Vomiting Review of Systems ROS Statement: Those systems with pertinent positive or pertinent negative responses have been documented in the HPI. ROS Other: All systems not noted in ROS Statement are negative. Past Medical History Past Medical History: Cancer, Deep Vein Thrombosis (DVT), GERD/Reflux Additional Past Medical History / Comment(s): 2006 Ovarian cancer with surgery/ chemo, reoccurrance ovarian cancer 08/2017 with chemo, current UTI, past UTIs, R leg DVT 2014, bilateral TMJ with surgery, partial bowel obstruction, kidney stones, hydronephrosis. stomach cancer History of Any Multi-Drug Resistant Organisms: VRE Date of last positivie culture/infection: 10/27/17 MDRO Source:: urine Past Surgical History: Adenoidectomy, Appendectomy, Cholecystectomy, Heart Catheterization With Stent, Hysterectomy, Tonsillectomy Additional Past Surgical History / Comment(s): ovarian cancer with bilateral oopherectomy/hysterectomy 2005; 2 open exploratory abdominal surgery, R chest mediport placed 2011, bilateral retrograde pyelogram cystoscopy with R ureter stent, ureter stent right ureter, anemia, jaws have pins d/t surgery for TMJ, colonoscopy Past Anesthesia/Blood Transfusion Reactions: No Reported Reaction Additional Past Anesthesia/Blood Transfusion Reaction / Comment(s): Pt has received blood in past without reaction. Date of Last Stent Placement:: 2011 Past Psychological History: Anxiety, Depression Smoking Status: Never smoker Past Alcohol Use History: None Reported Past Drug Use History: None Reported - Past Family History Mother Family Medical History: Diabetes Mellitus, Dialysis Brother(s) Family Medical History: Cancer Additional Family Medical History / Comment(s): lung cancer- since passed Sister(s) Family Medical History: CVA/TIA Father Family Medical History: Dementia, Neurologic Disorder Additional Family Medical History / Comment(s): alzheimers General Exam - General Exam Comments Initial Comments: PHYSICAL EXAM: General Impression: Alert and oriented x3, not in acute distress HEENT: Normocephalic atraumatic, extra-ocular movements intact, pupils equal and reactive to light bilaterally, mucous membranes moist. Cardiovascular: Heart regular rate and rhythm, S1&S2 audible, no murmurs, rubs or gallops Chest: Lungs clear to auscultation bilaterally, no rhonchi, no wheeze, no rales Abdomen: Bowel sounds present, abdomen soft, non-tender, non-distended, no organomegaly Musculoskeletal: Pulses present and equal in all extremities, no peripheral edema Motor: Power 5/5 bilaterally, no focal deficits noted Neurological: CN II-XII grossly intact, no focal motor or sensory deficits noted Skin: Intact with no visualized rashes Psych: Normal affect and mood Limitations: no limitations Course Vital Signs 01/26/18 01/26/18 01/26/18 13:07 14:25 15:09 Temperature 99.2 F Pulse Rate 66 57 L 84 Respiratory 18 18 18 Rate Blood Pressure 116/59 119/57 119/58 O2 Sat by Pulse 100 98 96 Oximetry 01/26/18 01/26/18 16:00 16:58 Temperature 98.2 F Pulse Rate Respiratory Rate Blood Pressure 138/63 116/58 O2 Sat by Pulse Oximetry Medical Decision Making - Medical Decision Making ED course: 62-year-old female presents with low blood pressures at home and symptoms of weakness and palpitations. Vital signs upon arrival are within acceptable limits. Laboratory evaluation obtained. Leukocytosis of 18.7. Hemoglobin of 9.2. Metabolic panel is unremarkable. Lactic acid level II.5. Magnesium is 1.5. Urinalysis shows urinary tract infection. Patient is a high-risk patient given that she is undergoing active chemotherapy. Patient given broad-spectrum antibiotics. Blood cultures and urine culture sent. Patient be admitted x-ray obtained showing no acute processes. There is reasonably that patient's symptoms are secondary to urinary tract infection. Patient admitted. Discussed patient case with Dr. turcios who is willing to accept admission. He requests that patient disease and urology be on consult. EKG Interpretation: A 12 lead EKG was obtained. It was interpreted by myself and attending physician. There is a P wave before every QRS complex. Rate is 66. Rhythm is normal sinus rhythm,. 124, QRS 78, QTc 434. QT is not prolonged. No ST segment depression or elevation. Isolated T-wave inversion in lead 3, V3 and V4. - Lab Data Result diagrams: 01/26/18 13:40 01/26/18 13:40 Lab Results 01/26/18 01/26/18 01/26/18 Range/Units 13:40 13:40 13:46 WBC 18.7 H (3.8-10.6) k/uL RBC 2.88 L (3.80-5.40) m/uL Hgb 9.2 L (11.4-16.0) gm/dL Hct 28.2 L (34.0-46.0) % MCV 97.9 (80.0-100.0) fL MCH 31.9 (25.0-35.0) pg MCHC 32.6 (31.0-37.0) g/dL RDW 15.8 H (11.5-15.5) % Plt Count 101 L (150-450) k/uL Neutrophils % 94 % Lymphocytes % 4 % Monocytes % 1 % Eosinophils % 0 % Basophils % 0 % Neutrophils # 17.6 H (1.3-7.7) k/uL Lymphocytes # 0.8 L (1.0-4.8) k/uL Monocytes # 0.2 (0-1.0) k/uL Eosinophils # 0.1 (0-0.7) k/uL Basophils # 0.0 (0-0.2) k/uL Sodium 135 L (137-145) mmol/L Potassium 3.6 (3.5-5.1) mmol/L Chloride 102 (98-107) mmol/L Carbon Dioxide 25 (22-30) mmol/L Anion Gap 8 mmol/L BUN 20 H (7-17) mg/dL Creatinine 0.79 (0.52-1.04) mg/dL Est GFR (CKD-EPI)AfAm >90 (>60 ml/min/1.73 sqM) Est GFR (CKD-EPI)NonAf 80 (>60 ml/min/1.73 sqM) Glucose 119 H (74-99) mg/dL Plasma Lactic Acid Chad 2.5 H* (0.7-2.0) mmol/L Calcium 8.8 (8.4-10.2) mg/dL Magnesium 1.5 L (1.6-2.3) mg/dL Urine Color Urine Appearance (Clear) Urine pH (5.0-8.0) Ur Specific [place] (1.001-1.035) Urine Protein (Negative) Urine Glucose (UA) (Negative) Urine Ketones (Negative) Urine Blood (Negative) Urine Nitrite (Negative) Urine Bilirubin (Negative) Urine Urobilinogen (<2.0) mg/dL Ur Leukocyte Esterase (Negative) Urine RBC (0-5) /hpf Urine WBC (0-5) /hpf Ur Squamous Epith Cells (0-4) /hpf Urine Bacteria (None) /hpf Hyaline Casts (0-2) /lpf Urine Mucus (None) /hpf 01/26/ Range/Units 15:55 WBC (3.8-10.6) k/uL RBC (3.80-5.40) m/uL Hgb (11.4-16.0) gm/dL Hct (34.0-46.0) % MCV (80.0-100.0) fL MCH (25.0-35.0) pg MCHC (31.0-37.0) g/dL RDW (11.5-15.5) % Plt Count (150-450) k/uL Neutrophils % % Lymphocytes % % Monocytes % % Eosinophils % % Basophils % % Neutrophils # (1.3-7.7) k/uL Lymphocytes # (1.0-4.8) k/uL Monocytes # (0-1.0) k/uL Eosinophils # (0-0.7) k/uL Basophils # (0-0.2) k/uL Sodium (137-145) mmol/L Potassium (3.5-5.1) mmol/L Chloride (98-107) mmol/L Carbon Dioxide (22-30) mmol/L Anion Gap mmol/L BUN (7-17) mg/dL Creatinine (0.52-1.04) mg/dL Est GFR (CKD-EPI)AfAm (>60 ml/min/1.73 sqM) Est GFR (CKD-EPI)NonAf (>60 ml/min/1.73 sqM) Glucose (74-99) mg/dL Plasma Lactic Acid Chad (0.7-2.0) mmol/L Calcium (8.4-10.2) mg/dL Magnesium (1.6-2.3) mg/dL Urine Color Yellow Urine Appearance Clear (Clear) Urine pH 7.5 (5.0-8.0) Ur Specific [place] 1.011 (1.001-1.035) Urine Protein 2+ H (Negative) Urine Glucose (UA) Negative (Negative) Urine Ketones Negative (Negative) Urine Blood Negative (Negative) Urine Nitrite Negative (Negative) Urine Bilirubin Negative (Negative) Urine Urobilinogen <2.0 (<2.0) mg/dL Ur Leukocyte Esterase Large H (Negative) Urine RBC 1 (0-5) /hpf Urine WBC 122 H (0-5) /hpf Ur Squamous Epith Cells 1 (0-4) /hpf Urine Bacteria Moderate H (None) /hpf Hyaline Casts 6 H (0-2) /lpf Urine Mucus Rare H (None) /hpf Disposition Clinical Impression: Sepsis Disposition: ADMITTED IP TO THIS [facility] Condition: Fair Referrals: Kevin Metzger MD [Primary Care Provider] - 1-2 days Decision Time: 17:19
[2018-01-26] MEDS ORDERED: SODIUM CHLORIDE 0.9% 1,000 ML IV ONE (13:54)
[2018-01-26] MEDS ORDERED: LORazepam 2 MG/ML INJ IV STA (13:55)
[2018-01-26 14:03] LABS: Basophils % (A) 0 %; Eosinophils # (A) 0.1 k/uL (0-0.7); Eosinophils % (A) 0 %; HCT 28.2 % (34.0-46.0); HGB 9.2 gm/dL (11.4-16.0); Lymphocytes # (A) 0.8 k/uL (1.0-4.8); Lymphocytes % (A) 4 %; MCH 31.9 pg (25.0-35.0); MCHC 32.6 g/dL (31.0-37.0); MCV 97.9 fL (80.0-100.0); Mean Platelet Volume 9.2; Monocytes # (A) 0.2 k/uL (0-1.0); Monocytes % (A) 1 %; Neutrophils # (A) 17.6 k/uL (1.3-7.7); Neutrophils % (A) 94 %; Platelet Count 101 k/uL (150-450); RBC 2.88 m/uL (3.80-5.40); RDW 15.8 % (11.5-15.5); WBC 18.7 k/uL (3.8-10.6)
[2018-01-26 14:35] LABS: Anion Gap 8 mmol/L; Blood Urea Nitrogen 20 mg/dL (7-17); Calcium 8.8 mg/dL (8.4-10.2); Carbon Dioxide 25 mmol/L (22-30); Chloride 102 mmol/L (98-107); Glucose 119 mg/dL (74-99); Magnesium 1.5 mg/dL (1.6-2.3); Potassium 3.6 mmol/L (3.5-5.1); Sodium 135 mmol/L (137-145)
--- NOTE | 2018-01-26 14:52 | XR ---
EXAMINATION TYPE: XR chest 2V DATE OF EXAM: 01/26/2018 COMPARISON: 01/07/2018 INDICATION: Pain TECHNIQUE: Frontal and lateral views of the chest are obtained. FINDINGS: The heart size is normal. The pulmonary vasculature is normal. The lungs are clear. Port is present on the right with the tip in superior vena cava region. Cathete r is present on the right, tip is unclear but extends towards the right chest wall. Right pigtail ca theter is within the abdomen. . IMPRESSION: 1. No acute pulmonary process. 2. Catheters discussed above.
[2018-01-26] MEDS ORDERED: CEFEPIME 2 GM in SODIUM CHLORIDE 0.9% 50 ML IVPB STA (15:11)
[2018-01-26] MEDS ORDERED: VANCOMYCIN 1,000 MG in SODIUM CHLORIDE 0.9% 250 ML IVPB STA (15:13)
[2018-01-26 16:16] LABS: Appearance,Urine Clear (Clear); Bacteria,Urine Moderate /hpf; Bilirubin,Urine Negative (Negative); Blood,Urine Negative (Negative); Color,Urine Yellow; Glucose,Urine (UA) Negative (Negative); Hyaline Casts,Urine 6 /lpf (0-2); Ketones,Urine Negative (Negative); Leukocyte Esterase,Urine Large (Negative); Mucus,Urine Rare /hpf; Nitrite,Urine Negative (Negative); PH, Urine 7.5 (5.0-8.0); Protein,Urine 2+ (Negative); RBC,Urine 1 /hpf (0-5); Specific Gravity,Urine 1.011 (1.001-1.035); Squamous Epithelial Cell,Urine 1 /hpf (0-4); Urobilinogen,Urine <2.0 mg/dL (<2.0); WBC,Urine 122 /hpf (0-5)
[2018-01-26] MEDS ORDERED: NALOXONE 0.4 MG/ML 1 ML VIAL IV PRN (17:19)
[2018-01-26] MEDS ORDERED: ACETAMINOPHEN TAB 325 MG TAB PO PRN (17:31)
[2018-01-26] MEDS ORDERED: HYDROmorphone 1 MG/ML 1 ML SYRINGE IVP STA (18:03)
[2018-01-26] MEDS ORDERED: HYDROmorphone 0.5 MG/0.5 ML SYRINGE IVP STA (18:03)
[2018-01-26] MEDS: HYDROcodone/APAP 5-325MG 1 EACH TAB PO PRN (19:55)
[2018-01-26] MEDS ORDERED: MAGNESIUM HYDROXIDE 2,400 MG/10 ML CUP PO PRN (20:09)
[2018-01-26] MEDS: hydrALAZINE HCL 50 MG TAB PO SCH (21:12)
[2018-01-26] MEDS: ALPRAZolam 0.25 MG TAB PO PRN (21:12)
[2018-01-26] MEDS: GABAPENTIN 300 MG CAP PO SCH (21:12)
[2018-01-26] MEDS: traZODone HCL 100 MG TAB PO SCH (21:12)
[2018-01-26] MEDS: HYDROmorphone 1 MG/ML 1 ML SYRINGE IVP PRN (22:02)
[2018-01-26] MEDS: HEPARIN SODIUM,PORCINE 5,000 UNIT/ML 1 ML VIAL SQ SCH (23:51)
[2018-01-27] MEDS ORDERED: metroNIDAZOLE 500 MG TAB PO SCH
[2018-01-27] MEDS: hydrALAZINE HCL 50 MG TAB PO SCH ×3 (09:15→21:30)
[2018-01-27] MEDS: DILTIAZEM CD 120 MG CAP.ER.24H PO SCH (09:15)
[2018-01-27] MEDS: GABAPENTIN 300 MG CAP PO SCH ×3 (09:15→21:29)
[2018-01-27] MEDS: PANTOPRAZOLE 40 MG TABLET PO SCH (09:16)
[2018-01-27] MEDS: HEPARIN SODIUM,PORCINE 5,000 UNIT/ML 1 ML VIAL SQ SCH ×3 (09:16→21:30)
[2018-01-27] MEDS: cloNIDine HCL 0.1 MG TAB PO SCH (09:16)
[2018-01-27] MEDS: HYDROcodone/APAP 5-325MG 1 EACH TAB PO PRN ×3 (09:39→19:10)
[2018-01-27] MEDS: ESCITALOPRAM 10 MG TAB PO SCH (09:39)
[2018-01-27 11:13] VITALS: BMI 20.9
[2018-01-27] MEDS: FERROUS SULFATE 325 MG TAB PO SCH (11:53)
[2018-01-27] MEDS: HYDROmorphone 1 MG/ML 1 ML SYRINGE IVP PRN ×3 (13:28→21:28)
[2018-01-27] MEDS ORDERED: cefTRIAXone 2,000 MG in SODIUM CHLORIDE 0.9% 100 ML IVPB SCH (15:15)
[2018-01-27] MEDS ORDERED: LEVOFLOXACIN 750 MG TAB PO SCH (16:00)
[2018-01-27] MEDS ORDERED: cefTRIAXone IN SWFI 2,000 MG/20 ML SYRINGE IVP SCH (16:00)
--- NOTE | 2018-01-27 19:58 | HP ---
HISTORY AND PHYSICAL CHIEF COMPLAINT: Weakness, abdominal pain, hypotension. HISTORY OF PRESENT ILLNESS: This is another admission for this 62-year-old white female with metastatic CA of the ovary and ureteral obstruction. She was discharged and has been getting chemotherapy from [facility] in [place], but started to have dizziness, lightheadedness and shortness of breath, came to the emergency room, where her blood pressure was low and pulse was elevated. White count was 18,700 and she had urinary tract infection, which she has been battling with. REVIEW OF SYSTEMS: She has had no chills, fever, chest pain, shortness of breath, abdominal pain, vomiting, diarrhea, hematuria, dysuria, etc. PAST MEDICAL HISTORY, FAMILY HISTORY, PERSONAL AND SOCIAL HISTORIES: Are all otherwise unremarkable and unchanged. PHYSICAL EXAMINATION: Blood pressure is 96/52 with a pulse of 110, respirations of 35 and she is afebrile. In general, she appeared to be pale, chronically ill, in no acute distress. Head, ears, eyes, nose, mouth and throat were normal. Chest is clear and cardiac is normal except for tachycardia. The abdomen is soft and nontender. Extremities are normal. IMPRESSION: 1. Hypotension. 2. Tachycardia. 3. Urinary tract infection. 4. Leukocytosis. 5. Carcinoma of the ovary with ureteral obstruction, status post stent placement. PLAN: 1. Bed rest. 2. IV fluids. 3. Rehydrated. 4. IV antibiotics. 5. Consult Oncology. MMDAVIONL / ROBERTN: [id number] /
[2018-01-27] MEDS: ALPRAZolam 0.25 MG TAB PO PRN (21:29)
[2018-01-27] MEDS: traZODone HCL 100 MG TAB PO SCH (21:29)
[2018-01-28] MEDS: HYDROmorphone 1 MG/ML 1 ML SYRINGE IVP PRN ×5 (01:57→22:35)
[2018-01-28] MEDS: DILTIAZEM CD 120 MG CAP.ER.24H PO SCH (08:14)
[2018-01-28] MEDS: HEPARIN SODIUM,PORCINE 5,000 UNIT/ML 1 ML VIAL SQ SCH ×3 (08:14→22:55)
[2018-01-28] MEDS: hydrALAZINE HCL 50 MG TAB PO SCH ×3 (08:14→21:51)
[2018-01-28] MEDS: cloNIDine HCL 0.1 MG TAB PO SCH (08:14)
[2018-01-28] MEDS: ESCITALOPRAM 10 MG TAB PO SCH (08:14)
[2018-01-28] MEDS: PANTOPRAZOLE 40 MG TABLET PO SCH (08:14)
[2018-01-28] MEDS: GABAPENTIN 300 MG CAP PO SCH ×3 (08:14→21:51)
--- NOTE | 2018-01-28 08:17 | CONS ---
CONSULTATION DATE OF SERVICE: 01/27/2018. REASON FOR CONSULTATION: UTI, sepsis and the patient on chemo. HISTORY OF PRESENT ILLNESS: The patient is a 62-year-old female with past medical history significant for ovarian cancer for which the patient is currently on chemotherapy about 4 weeks off chemo has been this past week. The patient presented to the [facility] ER yesterday afternoon with chief complaints of low blood pressure. Apparently she was at home when she checked her blood pressure and found to have systolic of 60s. Patient called the EMS who brought the patient to the ER. The patient did complain of feeling weak and tired and the heart was racing. Patient denies having any high-grade fever, rigors or chills though. Denies having any URI symptoms. No nausea, no vomiting. No abdominal pain. No diarrhea. On arrival to the ER, the patient did have a low-grade fever of 99.2. Blood pressure was reported to be normal and not tachycardia. The patient did have elevated white count of 18.7. Lactic acid was 2.5. Urine was positive with large leukocyte esterases and 122 WBC and moderate bacteria. She did receive a dose of cefepime in the ER. Subsequently has been admitted to the hospital. Infectious Disease was consulted for recommendation regarding antibiotic therapy and the patient concern for possible immune deficiency and recent chemo use. REVIEW OF SYSTEMS: Constitutional: Positive for weakness, chills but no high-grade fever. Eyes no complaint. ENT no complaint. Respiratory no complaint. Cardiovascular no complaint. Genitourinary as per HPI. Gastrointestinal: No complaint. Musculoskeletal no complaint. Integumentary: No complaint. Psychological no complaint. Endocrine no complaint. Neurologic no complaint. PAST MEDICAL HISTORY: DVT, gastroesophageal reflux disease, history of kidney stone, hydronephrosis, ovarian cancer. Previous history of VRE, UTI. PAST SURGICAL HISTORY: Adenoidectomy, appendectomy, cholecystectomy, heart catheterization, stent, hysterectomy, tonsillectomy. PAST PSYCHOLOGICAL HISTORY: History of anxiety and depression. SOCIAL HISTORY: No history of smoking, drinking, or drug use. FAMILY HISTORY: Mother with history of diabetes mellitus and renal failure. Brother history of lung cancer. Father history of dementia. ALLERGIES: TO CARBOPLATIN, IODINE, PENICILLIN, CODEINE AND MORPHINE. MEDICATION: Currently include the patient is on Tylenol, Alligator, Xanax, Catapres, Cardizem, Lexapro, and sulfate, Neurontin, heparin, Dilaudid, Milk of Magnesia, Protonix, MiraLAX and Desyrel. EXAMINATION: Blood pressure 133/59 with a pulse of 73, temperature of 99. She is 97% on room air. General description is an elderly female lying in bed in no distress. No tachypnea or accessory muscles of respiration use. HEENT: Shows pallor. No scleral icterus. Oral mucosa membranes are moist. No significant erythema or thrush. Neck: Trachea central. No thyromegaly. LUNGS: Unlabored breathing. Clear to auscultation anteriorly. No wheeze or crackles. Heart S1, S2. Regular rate and rhythm. ABDOMEN: Soft, no tenderness. No guarding. No rigidity. EXTREMITIES: No edema of feet. Skin examination: No rash or mass palpable. Neurological: Patient is awake, alert, oriented times three. Mood and affect normal. LABS: Hemoglobin 9.8, white count of 18.7, BUN of 20, creatinine 0.39, electrolytes have been normal. Urine has been positive. Cultures currently pending. Blood culture so far negative. Chest x-ray was negative for any acute infiltrate. DIAGNOSTIC IMPRESSION AND PLAN: 1. Patient admitted to the hospital with possible sepsis in patient who did have hypertension at home. The patient did have a low-grade fever. Did have elevated white count. The patient did have significantly positive UA and no other clinical focus of infection likely the source of her sepsis as the patient did have a elevated lactic acid as well. The patient currently undergoing chemotherapy for her ovarian cancer and no other clinical focus of infection. The patient chest x- ray reported negative. Abdomen was soft on clinical examination. 2. The patient did have a PENICILLIN ALLERGY. Will limit the number of antibiotics that could be safely used. PLAN: 1. We will start the patient on Rocephin 2 g IV piggyback. 2. IV fluid. 3. We will follow up on clinical condition and culture to further adjust medication if needed. Thank you for this consultation. We will follow this patient along with you. MMODL / IJN: [id number] /
[2018-01-28] MEDS: FERROUS SULFATE 325 MG TAB PO SCH (11:32)
[2018-01-28] MEDS: ONDANSETRON 4 MG TAB PO PRN (12:38)
[2018-01-28] MEDS ORDERED: VANCOMYCIN IV PER PHARMACY 1 EACH MISC MISCELLANE PRN (13:18)
[2018-01-28] MEDS ORDERED: VANCOMYCIN 1,250 MG in SODIUM CHLORIDE 0.9% 250 ML IVPB STA (13:25)
[2018-01-28] MEDS: HYDROcodone/APAP 5-325MG 1 EACH TAB PO PRN ×2 (14:26→20:00)
[2018-01-28] MEDS: ALPRAZolam 0.25 MG TAB PO PRN (21:51)
[2018-01-28] MEDS: traZODone HCL 100 MG TAB PO SCH (22:54)
--- NOTE | 2018-01-28 23:26 | PN ---
PROGRESS NOTE DATE OF SERVICE: 01/28/2018. REASON FOR FOLLOWUP VISIT: Urinary tract infection. INTERVAL HISTORY: The patient did have a low-grade fever of 99.1. The patient is hemodynamically more stable. She is complaining of feeling weak and tired, though slightly improved. No nausea, vomiting and no diarrhea. EXAMINATION: Blood pressure 134/72 with a pulse of 73, temperature of 99.1, 97% on room air. GENERAL DESCRIPTION: A middle-aged female up in the bed in no distress. RESPIRATORY SYSTEM: Unlabored breathing. Clear to auscultation anteriorly. HEART: S1, S2. Regular rate and rhythm. LABS: Lactic acid was 0.7. No CBC was done today. Urine showed complete Enterococcus. DIAGNOSTIC IMPRESSION AND PLAN: Patient admitted to the hospital with hypertension, concern for possible sepsis and urinary tract infection. The patient's urine is showing a group D Enterococcus. The patient did have a penicillin allergy, hence antibiotic was switched over to vancomycin while watching clinical course closely. Discontinue the Rocephin. Continue supportive care. MMODL / IJN: [id number] /
--- NOTE | 2018-01-28 23:41 | PN ---
PROGRESS NOTE DATE OF SERVICE: 01/28/2018. CHIEF COMPLAINT: Urinary tract infection, sepsis, CA of the ovaries. HISTORY OF PRESENT ILLNESS: This lady is feeling fairly good and not having a great deal of pain. Plan is for her to go to a rehab unit in the [facility]. PHYSICAL EXAM: She remains pale. Chest is clear. Cardiac exam is normal. IMPRESSION: 1. Urinary tract infection. 2. Dehydration. 3. Ovarian carcinoma. PLAN: Probably discharge to rehab this week. MMODL / IJN: [id number] /
[2018-01-29] MEDS ORDERED: VANCOMYCIN 1,000 MG in SODIUM CHLORIDE 0.9% 250 ML IVPB SCH (06:00)
[2018-01-29] MEDS: GABAPENTIN 300 MG CAP PO SCH ×3 (09:05→22:00)
[2018-01-29] MEDS: DILTIAZEM CD 120 MG CAP.ER.24H PO SCH (09:06)
[2018-01-29] MEDS: hydrALAZINE HCL 50 MG TAB PO SCH ×3 (09:06→21:59)
[2018-01-29] MEDS: FERROUS SULFATE 325 MG TAB PO SCH (09:06)
[2018-01-29] MEDS: cloNIDine HCL 0.1 MG TAB PO SCH (09:06)
[2018-01-29] MEDS: PANTOPRAZOLE 40 MG TABLET PO SCH (09:06)
[2018-01-29] MEDS: HEPARIN SODIUM,PORCINE 5,000 UNIT/ML 1 ML VIAL SQ SCH ×2 (09:06→16:07)
[2018-01-29] MEDS: ESCITALOPRAM 10 MG TAB PO SCH (09:06)
[2018-01-29] MEDS: HYDROmorphone 1 MG/ML 1 ML SYRINGE IVP PRN ×4 (09:13→22:00)
[2018-01-29] MEDS: ONDANSETRON 4 MG TAB PO PRN (09:28)
[2018-01-29 10:30] LABS: Appearance,Urine Clear (Clear); Bacteria,Urine Rare /hpf; Bilirubin,Urine Negative (Negative); Blood,Urine Negative (Negative); Color,Urine Light Yellow; Glucose,Urine (UA) Negative (Negative); Ketones,Urine Negative (Negative); Leukocyte Esterase,Urine Negative (Negative); Mucus,Urine Rare /hpf; Nitrite,Urine Negative (Negative); PH, Urine 5.5 (5.0-8.0); Protein,Urine 1+ (Negative); RBC,Urine 1 /hpf (0-5); Specific Gravity,Urine 1.008 (1.001-1.035); Urobilinogen,Urine <2.0 mg/dL (<2.0)
[2018-01-29 11:36] LABS: Anion Gap 8 mmol/L; Blood Urea Nitrogen 9 mg/dL (7-17); Calcium 8.5 mg/dL (8.4-10.2); Carbon Dioxide 24 mmol/L (22-30); Chloride 107 mmol/L (98-107); Glucose 124 mg/dL (74-99); Potassium 3.7 mmol/L (3.5-5.1); Sodium 139 mmol/L (137-145)
[2018-01-29 11:40] LABS: Basophils % (A) 0 %; Eosinophils # (A) 0.1 k/uL (0-0.7); Eosinophils % (A) 3 %; HCT 24.5 % (34.0-46.0); Lymphocytes # (A) 0.9 k/uL (1.0-4.8); Lymphocytes % (A) 20 %; MCH 31.8 pg (25.0-35.0); MCHC 32.5 g/dL (31.0-37.0); MCV 97.7 fL (80.0-100.0); Mean Platelet Volume 9.6; Monocytes # (A) 0.1 k/uL (0-1.0); Monocytes % (A) 2 %; Neutrophils # (A) 3.1 k/uL (1.3-7.7); Neutrophils % (A) 73 %; RBC 2.51 m/uL (3.80-5.40); RDW 15.1 % (11.5-15.5); WBC 4.3 k/uL (3.8-10.6)
[2018-01-29 12:05] LABS: Anisocytosis (M) Present; Platelet Count 62 k/uL (150-450); Poikilocytosis (M) Present
[2018-01-29] MEDS: POLYETHYLENE GLYCOL 3350 17 GM POWD.PACK PO PRN (17:34)
[2018-01-29] MEDS: traZODone HCL 100 MG TAB PO SCH (22:00)
[2018-01-29] MEDS: ALPRAZolam 0.25 MG TAB PO PRN (22:05)
--- NOTE | 2018-01-29 23:09 | PN ---
PROGRESS NOTE DATE OF SERVICE: 01/29/2018. REASON FOR FOLLOWUP: Positive urine culture. INTERVAL HISTORY: The patient's urine culture early in the morning with VRE. Her repeat urine cultures were ordered and vancomycin discontinued. As of this morning, the patient has been afebrile. She has been breathing comfortably. Denies significant chest pain or cough. No abdominal pain. No urinary symptoms. EXAMINATION: Blood pressure 136/75 with a pulse of 72, temperature 97.1. She is 99% on room air. General description is a middle-aged female up in the bed in no distress. RESPIRATORY SYSTEM: Unlabored breathing, clear to auscultation anteriorly. HEART: S1, S2. Regular rate and rhythm. ABDOMEN: Soft, no tenderness. LABS: Hemoglobin is 8 with white count 4.3, BUN of 9, creatinine 0.67. Repeat UA this morning is negative. DIAGNOSTIC IMPRESSION AND PLAN: Patient admitted to hospital with concern for possible sepsis. The patient did have elevated white count, concern for hypertension, a positive UA. Initiated with Rocephin that was switched to vancomycin when Enterococcus was seen, however that is coming up to be VRE. Vancomycin has been discontinued and repeat UA is currently negative. Possible mild UTI that has been adequately treated. There is no need for any further antibiotic therapy at this point. Continue supportive care. MMODL / IJN: [id number] /
[2018-01-30] MEDS: HEPARIN SODIUM,PORCINE 5,000 UNIT/ML 1 ML VIAL SQ SCH ×4 (00:13→23:57)
[2018-01-30] MEDS: HYDROmorphone 1 MG/ML 1 ML SYRINGE IVP PRN ×5 (05:31→22:27)
[2018-01-30] MEDS: GABAPENTIN 300 MG CAP PO SCH ×3 (09:52→22:24)
[2018-01-30] MEDS: DILTIAZEM CD 120 MG CAP.ER.24H PO SCH (09:52)
[2018-01-30] MEDS: hydrALAZINE HCL 50 MG TAB PO SCH ×3 (09:52→22:24)
[2018-01-30] MEDS: ESCITALOPRAM 10 MG TAB PO SCH (09:52)
[2018-01-30] MEDS: PANTOPRAZOLE 40 MG TABLET PO SCH (09:52)
[2018-01-30] MEDS: cloNIDine HCL 0.1 MG TAB PO SCH (09:52)
--- NOTE | 2018-01-30 11:52 | PN ---
PROGRESS NOTE CHIEF COMPLAINT: CA of the ovary and general generalized weakness and debility. HISTORY OF PRESENT ILLNESS: This lady is feeling well. She is not having a great deal of pain or nausea. She is working on getting into a rehab center near her daughter in [place] and Registered Radiologic Technologist is working on this. PHYSICAL EXAM: Chest is clear. Cardiac exam is unchanged. IMPRESSION: 1. General weakness and debility. 2. Carcinoma of the ovary. PLAN: Work on transfer to a rehab facility. MMODL / IJN: [id number] /
[2018-01-30] MEDS: FERROUS SULFATE 325 MG TAB PO SCH (14:22)
--- NOTE | 2018-01-30 16:46 | PN ---
PROGRESS NOTE DATE OF SERVICE: 01/29/2018 CHIEF COMPLAINT: General debility and CA of the ovary as well as urinary tract infection. HISTORY OF PRESENT ILLNESS: This lady has grown out VRE and her treatment is appropriate. She remains very weak and her daughter is making arrangements for her to go to a rehab center in the [facility]. PHYSICAL EXAM: She remains pale. Chest is clear. Cardiac exam is normal. Abdomen is soft, nontender. IMPRESSION: 1. Carcinoma of the ovary. 2. Urinary tract infection with VRE. PLAN: Work on a discharge plan to get her to the rehab unit near her daughter. MMODL / IJN: [id number] /
--- NOTE | 2018-01-30 17:55 | PN ---
PROGRESS NOTE DATE OF SERVICE: 01/27/2018. CHIEF COMPLAINT: Urinary tract infection, sepsis and CA of the ovary. HISTORY OF PRESENT ILLNESS: This lady's blood pressures has dropped slightly and she is tachycardic. She does have a urinary tract infection. White count is 18,700 and her lactate is 2.5. PHYSICAL EXAM: She remains pale and very ill in appearance. Her chest is clear and the abdomen is soft and nontender. IMPRESSION: 1. Urinary tract infection. 2. Sepsis. 3. Carcinoma of the ovary. PLAN: IV fluids and antibiotics and then discuss any further possible management of her primary disease. MMODL / IJN: [id number] /
[2018-01-30] MEDS: ONDANSETRON 4 MG TAB PO PRN (18:10)
--- NOTE | 2018-01-30 21:58 | PN ---
PROGRESS NOTE DATE OF SERVICE: 01/30/2018 REASON FOR FOLLOWUP: Urinary tract infection. INTERVAL HISTORY: The patient is currently afebrile, breathing comfortably. No chest pain, shortness of breath or cough. No abdominal pain. No diarrhea. PHYSICAL EXAMINATION: Blood pressure 108/58 with a pulse of 70, temperature 96.2. She is 97% on room air. General description is a middle-aged female lying in bed in no distress. RESPIRATORY SYSTEM: Unlabored breathing. Clear to auscultation anteriorly. HEART: S1, S2. Regular rate and rhythm. ABDOMEN: Soft. No tenderness. EXTREMITIES: No edema of the feet. LABS: Hemoglobin is 8 with white count of 4.3, BUN of 9, creatinine 0.67. Repeat UA and urine culture have been negative. DIAGNOSTIC IMPRESSION AND PLAN: Patient admitted to hospital with possible sepsis, urinary tract infection. Urine did show VRE, which could have been possibly colonization or contamination, as the patient is afebrile without getting treatment for the same, and the repeat UA is negative. Currently no need for any antibiotic therapy. Will watch the patient closely off antibiotic. Continue with supportive care. MMODL / IJN: [id number] /
[2018-01-30] MEDS: ALPRAZolam 0.25 MG TAB PO PRN (22:24)
[2018-01-30] MEDS: traZODone HCL 100 MG TAB PO SCH (22:24)
[2018-01-31] MEDS: HYDROcodone/APAP 5-325MG 1 EACH TAB PO PRN ×3 (00:22→23:15)
[2018-01-31] MEDS: HYDROmorphone 1 MG/ML 1 ML SYRINGE IVP PRN ×4 (06:32→20:22)
[2018-01-31] MEDS: ESCITALOPRAM 10 MG TAB PO SCH (09:16)
[2018-01-31] MEDS: HEPARIN SODIUM,PORCINE 5,000 UNIT/ML 1 ML VIAL SQ SCH ×3 (09:16→23:17)
[2018-01-31] MEDS: PANTOPRAZOLE 40 MG TABLET PO SCH (09:17)
[2018-01-31] MEDS: DILTIAZEM CD 120 MG CAP.ER.24H PO SCH (09:17)
[2018-01-31] MEDS: GABAPENTIN 300 MG CAP PO SCH ×3 (09:17→23:16)
[2018-01-31] MEDS: hydrALAZINE HCL 50 MG TAB PO SCH ×3 (09:18→23:40)
[2018-01-31] MEDS: cloNIDine HCL 0.1 MG TAB PO SCH (10:16)
--- NOTE | 2018-01-31 10:26 | PN ---
PROGRESS NOTE DATE OF SERVICE: 01/31/2018. CHIEF COMPLAINT: CA of the ovary. HISTORY OF PRESENT ILLNESS: We believe that she is being transferred to her rehab center in [facility] today. She would like to try Lyrica and this will be started. PHYSICAL EXAM: Chest is clear and cardiac exam is normal. The abdomen is soft, nontender. IMPRESSION: 1. Carcinoma of the ovary. 2. Urinary tract infection. PLAN: Probably transfer today. MMODL / IJN: [id number] /
[2018-01-31] MEDS: FERROUS SULFATE 325 MG TAB PO SCH (11:48)
--- NOTE | 2018-01-31 15:23 | PN ---
PROGRESS NOTE DATE OF SERVICE: 01/31/2018 REASON FOR FOLLOWUP: Urinary tract infection. INTERVAL HISTORY: The patient is currently afebrile. She is feeling better. Breathing comfortably. Denies significant chest pain or shortness of breath or cough. She did complain of some diarrhea with two loose stools but no blood or mucus in it. PHYSICAL EXAMINATION: Blood pressure 120/65, pulse of 74, temperature of 98.7, she is 99% on room air. General description is a middle-aged female, up in the bed in no distress. RESPIRATORY SYSTEM: Unlabored breathing, clear to auscultation anteriorly. HEART: S1, S2. Regular rate and rhythm. ABDOMEN: Soft, no tenderness. LABS: No new labs have been obtained today. Repeat urine culture has been negative. DIAGNOSTIC IMPRESSION AND PLAN: Patient admitted to the hospital with possible urinary tract infection. Patient showed clinical improvement as her repeat UA has been negative, though initial urine culture did show VRE, which could be more likely contamination. In view of the negative repeat UA, no further antibiotic has been recommended. Patient complained of some diarrhea. She has been advised to increase intake. If any worsening diarrhea, suggestion for C diff though clinically the patient is low. Hence, we will hold on any further workup for the same condition. MMODL / IJN: [id number] /
[2018-01-31] MEDS: ALPRAZolam 0.25 MG TAB PO PRN (23:15)
[2018-01-31] MEDS: traZODone HCL 100 MG TAB PO SCH (23:16)
[2018-02-01] MEDS: HYDROmorphone 1 MG/ML 1 ML SYRINGE IVP PRN ×6 (00:57→23:57)
[2018-02-01] MEDS: GABAPENTIN 300 MG CAP PO SCH (09:00)
[2018-02-01] MEDS: hydrALAZINE HCL 50 MG TAB PO SCH ×3 (09:01→21:58)
[2018-02-01] MEDS: ESCITALOPRAM 10 MG TAB PO SCH (09:01)
[2018-02-01] MEDS: DILTIAZEM CD 120 MG CAP.ER.24H PO SCH (09:01)
[2018-02-01] MEDS: PANTOPRAZOLE 40 MG TABLET PO SCH (09:01)
[2018-02-01] MEDS: HEPARIN SODIUM,PORCINE 5,000 UNIT/ML 1 ML VIAL SQ SCH ×3 (09:01→23:57)
[2018-02-01] MEDS: cloNIDine HCL 0.1 MG TAB PO SCH (09:02)
[2018-02-01] MEDS: FERROUS SULFATE 325 MG TAB PO SCH (09:02)
[2018-02-01] MEDS: ONDANSETRON 4 MG TAB PO PRN (09:21)
--- NOTE | 2018-02-01 14:33 | PN ---
PROGRESS NOTE CHIEF COMPLAINT: Carcinoma of the ovary. HISTORY OF PRESENT ILLNESS: This lady has been fairly stable and we are still waiting for a bed to open up in the prison where she is going in [place]. She is complaining a lot of pickiness in the feet and she would like to try Lyrica. She will be placed on that and the gabapentin will be stopped. PHYSICAL EXAM: She remains pale and chronically ill. Breast exam is normal. IMPRESSION: 1. Carcinoma of the ovary. 2. Peripheral neuropathy secondary to chemotherapy. PLAN: 1. Lyrica in lieu of gabapentin. 2. Await for a bed to open up in the rehab facility that she is going to. MMODL / IJN: [id number] /
[2018-02-01] MEDS: PREGABALIN 50 MG CAP PO SCH (20:20)
[2018-02-01] MEDS: POLYETHYLENE GLYCOL 3350 17 GM POWD.PACK PO PRN (20:29)
[2018-02-01] MEDS: ALPRAZolam 0.25 MG TAB PO PRN (21:58)
[2018-02-01] MEDS: traZODone HCL 100 MG TAB PO SCH (21:58)
--- NOTE | 2018-02-01 22:33 | PN ---
PROGRESS NOTE DATE OF SERVICE: 02/01/2018 REASON FOR FOLLOWUP: Urinary tract infection. INTERVAL HISTORY: The patient is afebrile. She is breathing comfortably. Denies having any chest pain, shortness of breath or cough. No abdominal pain. Her diarrhea has resolved. Currently with no significant urinary symptoms. PHYSICAL EXAMINATION: Her blood pressure is 125/75 with a pulse of 68, temperature of 99. She is 97% on room air. General description is a middle-aged female up in the bed in no distress. RESPIRATORY SYSTEM: Unlabored breathing. Clear to auscultation anteriorly. HEART: S1, S2. Regular rate and rhythm. ABDOMEN: Soft. No tenderness. LAB: No new labs have been obtained today. Repeat urine culture is negative. Blood culture has been negative. DIAGNOSTIC IMPRESSION AND PLAN: Patient admitted to hospital with concern about a urinary tract infection and sepsis. The patient seems to have clinically responded. The urine culture did show VRE, for which the patient was not treated. PLAN: With the repeat UA being negative, afebrile, white count normal currently off antibiotic therapy, we will continue to monitor the patient closely off antibiotic. Continue with supportive care. MMODL / IJN: [id number] /
[2018-02-02] MEDS: HYDROcodone/APAP 5-325MG 1 EACH TAB PO PRN (00:53)
[2018-02-02] MEDS: HYDROmorphone 1 MG/ML 1 ML SYRINGE IVP PRN ×5 (03:57→21:54)
[2018-02-02] MEDS: HEPARIN SODIUM,PORCINE 5,000 UNIT/ML 1 ML VIAL SQ SCH ×3 (08:58→23:19)
[2018-02-02] MEDS: ESCITALOPRAM 10 MG TAB PO SCH (08:59)
[2018-02-02] MEDS: PREGABALIN 50 MG CAP PO SCH ×2 (08:59→21:59)
[2018-02-02] MEDS: hydrALAZINE HCL 50 MG TAB PO SCH ×3 (08:59→21:58)
[2018-02-02] MEDS: DILTIAZEM CD 120 MG CAP.ER.24H PO SCH (08:59)
[2018-02-02] MEDS: PANTOPRAZOLE 40 MG TABLET PO SCH (08:59)
[2018-02-02] MEDS: cloNIDine HCL 0.1 MG TAB PO SCH (09:00)
[2018-02-02] MEDS: ONDANSETRON 4 MG TAB PO PRN ×3 (11:44→22:03)
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
[2018-02-02] MEDS: FERROUS SULFATE 325 MG TAB PO SCH (12:26)
[2018-02-02] MEDS: ALPRAZolam 0.25 MG TAB PO PRN (21:57)
[2018-02-02] MEDS: traZODone HCL 100 MG TAB PO SCH (21:58)
[2018-02-03] MEDS: VANCOMYCIN ORAL SOLUTION 250 MG/5 ML BOTTLE PO SCH ×4 (00:09→17:51)
[2018-02-03] MEDS: CHERRY FLAVOR 60 ML BOTTLE PO SCH ×4 (00:09→17:51)
[2018-02-03] MEDS ORDERED: ACETAMINOPHEN TAB 325 MG TAB PO PRN (00:16)
[2018-02-03] MEDS: HYDROcodone/APAP 5-325MG 1 EACH TAB PO PRN ×2 (00:26→22:56)
[2018-02-03 02:45] LABS: Appearance,Urine Cloudy (Clear); Bacteria,Urine Occasional /hpf; Bilirubin,Urine Negative (Negative); Blood,Urine Large (Negative); Color,Urine Yellow; Glucose,Urine (UA) Negative (Negative); Hyaline Casts,Urine 14 /lpf (0-2); Ketones,Urine Negative (Negative); Leukocyte Esterase,Urine Negative (Negative); Mucus,Urine Few /hpf; Nitrite,Urine Negative (Negative); PH, Urine 5.5 (5.0-8.0); Protein,Urine 2+ (Negative); RBC,Urine 143 /hpf (0-5); Specific Gravity,Urine 1.013 (1.001-1.035); Squamous Epithelial Cell,Urine <1 /hpf (0-4); Urobilinogen,Urine <2.0 mg/dL (<2.0)
[2018-02-03] MEDS: HYDROmorphone 1 MG/ML 1 ML SYRINGE IVP PRN ×4 (03:50→20:50)
--- NOTE | 2018-02-03 05:55 | PN ---
PROGRESS NOTE DATE OF SERVICE: 02/02/2018. REASON FOR FOLLOWUP: 1. UTI. 2. Diarrhea. INTERVAL HISTORY: The patient is currently afebrile. The patient complaining of multiple loose stools that started after she took laxative for her constipation. The patient has some crampy abdominal pain, some nausea but no vomiting. Denies any chest pain, shortness of breath or cough. Occasional urinary symptoms. PHYSICAL EXAMINATION: Her blood pressure is 139/76 with a pulse of 51, temperature 99.3. She is 98% on room air. General description is a middle-aged female up in the bed in no distress. RESPIRATORY SYSTEM: Unlabored breathing. Clear to auscultation anteriorly. HEART: S1, S2. Regular rate and rhythm. ABDOMEN: Soft, no tenderness. No guarding or rigidity. EXTREMITIES: No edema of the feet. LABS: Hemoglobin is 8 with white count 4.3, BUN of 9, creatinine 0.67. DIAGNOSTIC IMPRESSION AND PLAN: Patient with diarrhea, crampy abdominal pain and now with low-grade fever, concern likely for possible C difficile. We will check a stool for C difficile and treat if positive. Also have some urinary symptom. Urine culture has been ordered. Continue supportive care. MMODL / IJN: [id number] /
[2018-02-03] MEDS: PREGABALIN 50 MG CAP PO SCH ×2 (08:49→20:50)
[2018-02-03] MEDS: HEPARIN SODIUM,PORCINE 5,000 UNIT/ML 1 ML VIAL SQ SCH ×3 (08:49→22:57)
[2018-02-03] MEDS: hydrALAZINE HCL 50 MG TAB PO SCH ×4 (08:54→20:49)
[2018-02-03] MEDS: cloNIDine HCL 0.1 MG TAB PO SCH (08:55)
[2018-02-03] MEDS: DILTIAZEM CD 120 MG CAP.ER.24H PO SCH (08:55)
[2018-02-03] MEDS: ESCITALOPRAM 10 MG TAB PO SCH (08:55)
[2018-02-03] MEDS: PANTOPRAZOLE 40 MG TABLET PO SCH (08:55)
[2018-02-03] MEDS: ONDANSETRON 4 MG TAB PO PRN (10:56)
[2018-02-03] MEDS: CHOLESTYRAMINE (WITH SUGAR) 4 GM PACKET PO SCH ×2 (11:07→17:50)
[2018-02-03] MEDS ORDERED: PREGABALIN 50 MG CAP PO STA (11:57)
[2018-02-03] MEDS: FERROUS SULFATE 325 MG TAB PO SCH (12:07)
--- NOTE | 2018-02-03 12:44 | PN ---
PROGRESS NOTE DATE OF SERVICE: 02/03/2018 CHIEF COMPLAINT: Carcinoma of the ovary. HISTORY OF PRESENT ILLNESS: This lady remains somewhat comfortable. We are still awaiting a rehab bed in [place]. PHYSICAL EXAM: Color same. Chest is clear. Cardiac exam is normal. IMPRESSION: Carcinoma of the ovary. PLAN: No change program. Await discharge plan. MMODL / IJN: [id number] /
[2018-02-03] MEDS: traZODone HCL 100 MG TAB PO SCH (20:49)
[2018-02-03] MEDS: NITROFURANTOIN MONOHYD/M-CRYST 100 MG CAP PO SCH (20:50)
[2018-02-03] MEDS: ALPRAZolam 0.25 MG TAB PO PRN (20:56)
[2018-02-04] MEDS: HYDROmorphone 1 MG/ML 1 ML SYRINGE IVP PRN ×5 (00:47→20:56)
[2018-02-04 07:45] LABS: Anisocytosis Slight; Basophils % (A) 0 %; Eosinophils % (A) 1 %; HGB 7.6 gm/dL (11.4-16.0); Lymphocytes # (A) 1.5 k/uL (1.0-4.8); Lymphocytes % (A) 36 %; MCHC 31.8 g/dL (31.0-37.0); MCV 100.7 fL (80.0-100.0); Macrocytosis Slight; Mean Platelet Volume 8.4; Monocytes # (A) 0.2 k/uL (0-1.0); Monocytes % (A) 6 %; Neutrophils # (A) 2.2 k/uL (1.3-7.7); Neutrophils % (A) 53 %; RBC 2.38 m/uL (3.80-5.40); RDW 16.6 % (11.5-15.5); WBC 4.2 k/uL (3.8-10.6)
[2018-02-04 07:46] LABS: Platelet Count 51 k/uL (150-450)
[2018-02-04 08:46] LABS: ALT 19 U/L (9-52); AST 20 U/L (14-36); Albumin 2.5 g/dL (3.5-5.0); Alkaline Phosphatase 47 U/L (38-126); Anion Gap 4 mmol/L; Blood Urea Nitrogen 7 mg/dL (7-17); Calcium 9.1 mg/dL (8.4-10.2); Carbon Dioxide 25 mmol/L (22-30); Chloride 112 mmol/L (98-107); Glucose 88 mg/dL (74-99); Potassium 3.3 mmol/L (3.5-5.1); Sodium 141 mmol/L (137-145); Total Bilirubin 0.1 mg/dL (0.2-1.3); Total Protein 4.8 g/dL (6.3-8.2)
[2018-02-04] MEDS: cloNIDine HCL 0.1 MG TAB PO SCH (09:10)
[2018-02-04] MEDS: HEPARIN SODIUM,PORCINE 5,000 UNIT/ML 1 ML VIAL SQ SCH ×3 (09:10→23:57)
[2018-02-04] MEDS: PANTOPRAZOLE 40 MG TABLET PO SCH (09:10)
[2018-02-04] MEDS: hydrALAZINE HCL 50 MG TAB PO SCH ×3 (09:10→22:05)
[2018-02-04] MEDS: NITROFURANTOIN MONOHYD/M-CRYST 100 MG CAP PO SCH ×2 (09:10→20:55)
[2018-02-04] MEDS: ESCITALOPRAM 10 MG TAB PO SCH (09:11)
[2018-02-04] MEDS: FERROUS SULFATE 325 MG TAB PO SCH (09:11)
[2018-02-04] MEDS: DILTIAZEM CD 120 MG CAP.ER.24H PO SCH (09:11)
[2018-02-04] MEDS: PREGABALIN 50 MG CAP PO SCH ×2 (09:19→20:55)
[2018-02-04] MEDS: ONDANSETRON 4 MG TAB PO PRN ×2 (12:51→21:03)
[2018-02-04] MEDS: POTASSIUM CHLORIDE ER 20 MEQ TAB.ER PO SCH ×2 (15:26→22:06)
[2018-02-04] MEDS: POLYETHYLENE GLYCOL 3350 17 GM POWD.PACK PO PRN (20:55)
[2018-02-04] MEDS: traZODone HCL 100 MG TAB PO SCH (20:55)
[2018-02-04] MEDS: ALPRAZolam 0.25 MG TAB PO PRN (21:03)
[2018-02-04 22:22] VITALS: RESP 16
[2018-02-04] MEDS: HYDROcodone/APAP 5-325MG 1 EACH TAB PO PRN (22:50)
--- NOTE | 2018-02-04 23:51 | PN ---
PROGRESS NOTE DATE OF SERVICE: 02/04/2018. REASON FOR FOLLOWUP VISIT: Urinary tract infection. INTERVAL HISTORY: The patient is currently afebrile. She is breathing comfortably. The patient denies having any chest pain, shortness of breath, cough. Her diarrhea has resolved and no urinary symptoms. EXAMINATION: Blood pressure 141/70 with a pulse of 67, temperature 98.9. She is 97% on room air. General description is a middle aged female lying in bed in no distress. Respiratory system: Unlabored breathing. Clear to auscultation anteriorly. Heart S1, S2 regular rate and rhythm. Abdomen soft. No tenderness. LABS: Hemoglobin 7.8, white count 4.2 with a BUN of 7, creatinine 0.71. DIAGNOSTIC IMPRESSION AND PLAN: Patient admitted to the hospital with urinary tract infection initially with VRE, repeat was negative. She did have another fever on Monday for which a repeat urine culture ordered which was slightly positive. Stool for C difficile has been negative. The diarrhea has resolved. Currently on Macrobid to continue while waiting for the repeat cultures to finalize. Continue supportive care. MMODL / IJN: [id number] /
[2018-02-05] MEDS: HYDROmorphone 1 MG/ML 1 ML SYRINGE IVP PRN ×2 (00:51→06:04)
[2018-02-05 05:30] VITALS: BP 122/59; PULSE 62; TEMP 98
[2018-02-05] MEDS: NITROFURANTOIN MONOHYD/M-CRYST 100 MG CAP PO SCH (07:30)
[2018-02-05] MEDS: PANTOPRAZOLE 40 MG TABLET PO SCH (07:30)
[2018-02-05] MEDS: POTASSIUM CHLORIDE ER 20 MEQ TAB.ER PO SCH (07:31)
[2018-02-05] MEDS: ESCITALOPRAM 10 MG TAB PO SCH (07:31)
[2018-02-05] MEDS: cloNIDine HCL 0.1 MG TAB PO SCH (07:31)
[2018-02-05] MEDS: DILTIAZEM CD 120 MG CAP.ER.24H PO SCH (07:31)
[2018-02-05] MEDS: hydrALAZINE HCL 50 MG TAB PO SCH (07:31)
[2018-02-05] MEDS: FERROUS SULFATE 325 MG TAB PO SCH (07:32)
[2018-02-05] MEDS: HEPARIN SODIUM,PORCINE 5,000 UNIT/ML 1 ML VIAL SQ SCH (07:32)
[2018-02-05] MEDS: PREGABALIN 50 MG CAP PO SCH (07:39)
--- NOTE | 2018-02-05 16:01 | PN ---
PROGRESS NOTE REASON FOR FOLLOWUP: Urinary tract infection. INTERVAL HISTORY: The patient is currently afebrile. She was seen on rounds this morning, breathing comfortably. Denies having any chest pain, shortness of breath or cough. No abdominal pain. No nausea or vomiting. Her urinary symptoms have improved. PHYSICAL EXAMINATION: Blood pressure 122/59 with a pulse of 62, temperature 98. She is 96% on room air. General description is a middle-aged female lying in bed in no distress. RESPIRATORY SYSTEM: Unlabored breathing. Clear to auscultation anteriorly. HEART: S1, S2. Regular rate and rhythm. ABDOMEN: Soft. No tenderness. LABS: Repeat urine culture currently pending. Hemoglobin 7.3, white count 4.2, BUN of 7, creatinine 0.71. DIAGNOSTIC IMPRESSION AND PLAN: Patient with urinary tract infection, previous culture with vancomycin-resistant Enterococci. mesh or colonizer. Currently with repeat positive and a low-grade fever. She is currently on Macrobid, to continue for about 5 days to finish course of therapy. Continue with supportive care. MMODL / IJN: [id number] /
--- NOTE | 2018-02-07 12:03 | DS ---
DISCHARGE SUMMARY CHIEF COMPLAINT: Abdominal pain, sepsis, obstructive uropathy, renal failure and CA of the ovary. HISTORY OF PRESENT ILLNESS AND PHYSICAL EXAM: The details of this lady's history and physical can be found in the initial workup. LABORATORY STUDIES: While she was in a hospital, she had laboratory studies, details which can be found in the laboratory section of her chart. COURSE IN THE HOSPITAL: After admission she was placed on bedrest, on intravenous fluids and antibiotics, her pain improved. Urinary tract infection was treated. She did not develop any other significant problems related to genitourinary or gastrointestinal obstruction. As she stabilized, arrangements were to be made for her and she left the hospital. Initially, it was planned that she would go to a rehab center in [facility]. However, this did work out and finally, she decided that she would go home with help. She will go home with help from her friend as well some others and be set up for home care. FINAL DIAGNOSES: 1. Urinary tract infection. 2. Partial bowel obstruction. 3. Renal failure with ureteral obstruction. 4. Carcinoma of the ovary. OPERATIONS: None. CONSULTATION: None She is improved. MMODL / IJN: [id number] /
--- NOTE | 2018-02-07 12:06 | PN ---
PROGRESS NOTE DATE OF SERVICE: 02/06/2018. CHIEF COMPLAINT: CA of the ovary. HISTORY OF PRESENT ILLNESS: This lady is stable and there is no interval change. The plan now is for her to probably go home with home care and this will be set up for Monday. PHYSICAL EXAM: Chest is clear. Cardiac exam is normal. Color remains the same. IMPRESSION: 1. Carcinoma of the ovary. 2. Urinary tract infection. PLAN: Probably discharge to home tomorrow. MMODL / IJN: [id number] /
--- NOTE | 2018-02-07 12:59 | CDI ---
Last Revision, April 2017 Documentation Clarification Form Date: 02/07/2018 12:34:04 PM From: Nina Daugherty Phone: If you have a question , please contact Rima Arriaga, Poultry Grader at [phone] [email or web address] and 5pm. Admit Date: 01/26/2018 5:19:00 PM Patient Name: Jesusita Galloway Visit Number: [id number] Discharge Date: 02/05/18 ATTENTION: The Clinical Documentation Specialists (CDI) and [facility] Coding Staff appreciate your assistance in clarifying documentation. Please respond to the clarification below the line at the bottom and electronically sign. The CDI & [facility] Coding staff will review the response and follow-up if needed. Please note: Queries are made part of the Legal Health Record. If you have any questions, please contact the author of this message via ITS. Dr. MONTES, Kevin Neff MD Documentation of possible sepsis in the ID consult. Risk Factors: Patient on chemo, ovarian CA, Urine was positive with large leukocyte esterases and 122 WBC's moderate bacteria. Clinical Indicators: low blood pressure systolic 60's, weak and tired WBC/Left Shift 18.7 Lactic acid: 2.5 Vitals signs on admission: 99.2F, up to 100.9 on 02/02, 66 BPM up to 100 on , 18 116/59 100 RA Treatment: Rocephin IV piggyback In your professional opinion, please clarify if these findings signify one of the following conditions, whether the condition is POA, and cause, if known: Sepsis ruled out Sepsis Other, please specify Unable to determine Present on Admission: YES or NO MTDD
--- NOTE | 2018-02-10 14:49 | MISC ---
MISCELLANOUS REPORT Sepsis is ruled out. MMODL / IJN: [id number] /
== END 2018-02-05 12:35 | disposition home health service (06) | DRG 690 ==
LOC: EC 13:05 → 5MS5E 17:19
PROVIDERS: ADMIT Family Medicine; ATTEND Family Medicine
DX: N39.0 Urinary tract infection, site not specified (principal); C56.9 Malignant neoplasm of unspecified ovary; K56.609 Unspecified intestinal obstruction, unspecified as to partial versus complete obstruction; B95.2 Enterococcus as the cause of diseases classified elsewhere; Z16.21 Resistance to vancomycin; E86.0 Dehydration; G62.0 Drug-induced polyneuropathy; I10 Essential (primary) hypertension; K21.9 Gastro-esophageal reflux disease without esophagitis; N19 Unspecified kidney failure; T45.1X5A Adverse effect of antineoplastic and immunosuppressive drugs, initial encounter; Z80.1 Family history of malignant neoplasm of trachea, bronchus and lung; Z82.0 Family history of epilepsy and other diseases of the nervous system; Z83.3 Family history of diabetes mellitus; Z85.028 Personal history of other malignant neoplasm of stomach; Z86.718 Personal history of other venous thrombosis and embolism; Z87.440 Personal history of urinary (tract) infections; Z87.442 Personal history of urinary calculi; Z88.0 Allergy status to penicillin; Z90.710 Acquired absence of both cervix and uterus; F41.9 Anxiety disorder, unspecified; F32.9 Major depressive disorder, single episode, unspecified; Z79.899 Other long term (current) drug therapy; I25.10 Atherosclerotic heart disease of native coronary artery without angina pectoris; Z95.5 Presence of coronary angioplasty implant and graft; Z88.5 Allergy status to narcotic agent; Z88.8 Allergy status to other drugs, medicaments and biological substances; D89.3 Immune reconstitution syndrome
CPT/HCPCS: 36415; 71046; 80048; 80053; 81001; 83605; 83735; 85025; 87040; 87077; 87086; 87186; 87324; 93005; 96361; 96365; 96366; 96367; 96375; 99285

== ENCOUNTER 2018-02-12 06:32 | Inpatient (IN) | payer BC ==
[2018-02-12] MEDS ORDERED: IBUPROFEN IV 600 MG in SODIUM CHLORIDE 0.9% 250 ML IV STA (07:14)
[2018-02-12] MEDS ORDERED: HYDROmorphone 1 MG/ML 1 ML SYRINGE IVP STA ×2 (07:16→11:41)
[2018-02-12] MEDS ORDERED: ONDANSETRON 4 MG/2 ML VIAL IVP STA (07:16)
--- NOTE | 2018-02-12 07:22 | ED ---
Abdominal Pain HPI - General Chief Complaint: Abdominal Pain Stated Complaint: abd pain,vomiting Time Seen by Provider: 02/12/18 07:07 Source: patient, RN notes reviewed, old records reviewed Mode of arrival: wheelchair Limitations: no limitations - History of Present Illness Initial Comments: Patient is a 62-year-old female presents emergency department today with chief complaint of left lower quadrant abdominal pain, and episodes of severe vomiting and nausea last night. She complains of distention and firmness of left lower quadrant. Patient has a past medical history significant for ovarian cancer. She reports that she is supposed to go chemotherapy treatment tomorrow. She was recently discharged from the hospital 4 days ago for significant urinary tract infection a partial small bowel obstruction. Patient states that she feels very weak. She complains of severe pain in the left lower quadrant. - Related Data Home Medications Medication Instructions Recorded Confirmed ALPRAZolam [Xanax] 0.25 mg PO HS PRN 08/25/14 02/12/18 Diltiazem HCl [Diltiazem 24Hr ER] 120 mg PO DAILY 08/25/14 02/12/18 Polyethylene Glycol 3350 [Miralax] 17 gm PO BID PRN 10/05/17 02/12/18 Gabapentin [Neurontin] 300 mg PO TID 10/17/17 02/12/18 Acetaminophen Tab [Tylenol] 325 mg PO Q4H PRN 12/21/17 02/12/18 Escitalopram [Lexapro] 10 mg PO DAILY 12/21/17 02/12/18 Ferrous Sulfate [Iron (65 MG 325 mg PO DAILY 12/21/17 02/12/18 Elemental)] Hydrocodone/Acetaminophen [[place] 1 tab PO Q4HR PRN 12/21/17 02/12/18 5-325] Magnesium Hydroxide [Milk of 2,400 mg PO DAILY PRN 12/21/17 02/12/18 Magnesia] Ondansetron HCl [Zofran] 8 mg PO Q6H PRN 12/21/17 02/12/18 cloNIDine HCL [Catapres] 0.1 mg PO DAILY 12/21/17 02/12/18 fentaNYL 25MCG/HR PATCH [Duragesic 1 patch TRANSDERM Q72H PRN 02/12/18 02/12/18 25MCG/HR] Previous Rx's Medication Instructions Recorded Pantoprazole [Protonix] 40 mg PO AC-BRKFST #30 tablet. 01/15/18 hydrALAZINE HCL [Apresoline] 50 mg PO TID #90 tab 01/15/18 traZODone HCL [Desyrel] 100 mg PO HS #30 tab 02/05/18 Allergies Allergy/AdvReac Type Severity Reaction Status Date / Time adhesive Allergy Rash/Hives Verified 02/12/18 08:27 carboplatin Allergy Anaphylaxis Verified 02/12/18 08:27 iodine Allergy Rash/Hives Verified 02/12/18 08:27 Penicillins Allergy Rash/Hives Verified 02/12/18 08:27 codeine AdvReac Nausea & Verified 02/12/18 08:27 Vomiting morphine AdvReac Nausea & Verified 02/12/18 08:27 Vomiting Review of Systems ROS Statement: Those systems with pertinent positive or pertinent negative responses have been documented in the HPI. ROS Other: All systems not noted in ROS Statement are negative. Past Medical History Past Medical History: Cancer, Deep Vein Thrombosis (DVT), GERD/Reflux Additional Past Medical History / Comment(s): 2006 Ovarian cancer with surgery/ chemo, reoccurrance ovarian cancer 08/2017 with chemo(per pt had tx mon01-23-18 and mon01-24-18),pt stated they also found cancer in stomach and bowel" current UTI, past UTIs, R leg DVT 2014, bilateral TMJ with surgery, partial bowel obstruction, kidney stones, hydronephrosis. History of Any Multi-Drug Resistant Organisms: VRE Date of last positivie culture/infection: 01/26/18 MDRO Source:: urine Past Surgical History: Adenoidectomy, Appendectomy, Cholecystectomy, Heart Catheterization With Stent, Hysterectomy, Tonsillectomy Additional Past Surgical History / Comment(s): ovarian cancer with bilateral oopherectomy/hysterectomy 2005; 2 open exploratory abdominal surgery, R chest mediport placed 2011, bilateral retrograde pyelogram cystoscopy with R ureter stent, ureter stent right ureter, anemia, jaws have pins d/t surgery for TMJ, colonoscopy Past Anesthesia/Blood Transfusion Reactions: No Reported Reaction Additional Past Anesthesia/Blood Transfusion Reaction / Comment(s): Pt has received blood in past without reaction. Date of Last Stent Placement:: 2011 Past Psychological History: Anxiety, Depression Smoking Status: Never smoker - Past Family History Mother Family Medical History: Diabetes Mellitus, Dialysis Brother(s) Family Medical History: Cancer Additional Family Medical History / Comment(s): lung cancer- since passed Sister(s) Family Medical History: CVA/TIA Father Family Medical History: Dementia, Neurologic Disorder Additional Family Medical History / Comment(s): alzheimers General Exam - General Exam Comments Initial Comments: 62-year-old female. Patient appears in moderate discomfort. Limitations: no limitations General appearance: alert, in no apparent distress Head exam: Present: atraumatic, normocephalic, normal inspection Eye exam: Present: normal appearance, PERRL, EOMI. Absent: scleral icterus, conjunctival injection, periorbital swelling ENT exam: Present: normal exam, mucous membranes moist Neck exam: Present: normal inspection Respiratory exam: Present: normal lung sounds bilaterally. Absent: respiratory distress, wheezes, rales, rhonchi, stridor Cardiovascular Exam: Present: normal rhythm, tachycardia, normal heart sounds. Absent: regular rate, systolic murmur, diastolic murmur, rubs, gallop, clicks GI/Abdominal exam: Present: soft, tenderness (LLQ tenderness), normal bowel sounds. Absent: distended, guarding, rebound, rigid Extremities exam: Present: normal inspection, full ROM, normal capillary refill. Absent: tenderness, pedal edema, joint swelling, calf tenderness Back exam: Present: normal inspection Neurological exam: Present: alert, oriented X3, CN II-XII intact Psychiatric exam: Present: normal affect, normal mood Skin exam: Present: warm, dry, intact, normal color. Absent: rash Course Vital Signs 02/12/18 02/12/18 02/12/18 06:34 08:00 08:26 Temperature 98.8 F 99.2 F Pulse Rate 121 H 104 H Respiratory 20 18 Rate Blood Pressure 168/110 194/94 O2 Sat by Pulse 98 98 Oximetry 02/12/18 10:16 Temperature Pulse Rate 89 Respiratory 18 Rate Blood Pressure 147/67 O2 Sat by Pulse 98 Oximetry Medical Decision Making - Medical Decision Making Patient 62-year-old female with complex medical history including ovarian cancer , undergoing chemo treatments. She also had significant urinary tract infections within the past month. She was discharged from the hospital 3 days ago. She arrives today with vomiting and complains left lower quadrant abdominal pain. She doesn't small bowel movement yesterday. She is quite tender on exam. She's has a low-grade temperature 99.2. Patient had sepsis protocol initiated. Given 2 L bolus. Patient was started on IV Rocephin. Previous urine cultures did show positive for VRE. Patient's white blood cell count is normal. Lactic acid was within normal limits. Patient's computed tomography scan shows evidence of colitis and enteritis. Some inflammatory changes noted in the left lower quadrant. Her hemoglobin has increased from her previous discharge. Patient at this time will be admitted, consults to surgery, infectious disease, oncology. - Lab Data Result diagrams: 02/12/18 06:43 02/12/18 06:43 Lab Results 02/12/18 02/12/18 02/12/18 Range/Units 06:43 06:43 06:43 WBC 9.9 (3.8-10.6) k/uL RBC 3.29 L (3.80-5.40) m/uL Hgb 10.7 L D (11.4-16.0) gm/dL Hct 32.9 L (34.0-46.0) % MCV 99.9 (80.0-100.0) fL MCH 32.4 (25.0-35.0) pg MCHC 32.4 (31.0-37.0) g/dL RDW 16.4 H (11.5-15.5) % Plt Count 150 D (150-450) k/uL Neutrophils % 85 % Lymphocytes % 11 % Monocytes % 3 % Eosinophils % 0 % Basophils % 0 % Neutrophils # 8.4 H (1.3-7.7) k/uL Lymphocytes # 1.1 (1.0-4.8) k/uL Monocytes # 0.3 (0-1.0) k/uL Eosinophils # 0.0 (0-0.7) k/uL Basophils # 0.0 (0-0.2) k/uL Anisocytosis Slight Macrocytosis Slight PT 9.6 (9.0-12.0) sec INR 1.0 (<1.2) APTT 20.3 L (22.0-30.0) sec Sodium 142 (137-145) mmol/L Potassium 4.6 (3.5-5.1) mmol/L Chloride 106 (98-107) mmol/L Carbon Dioxide 25 (22-30) mmol/L Anion Gap 11 mmol/L BUN 17 (7-17) mg/dL Creatinine 1.19 H (0.52-1.04) mg/dL Est GFR (CKD-EPI)AfAm 56 (>60 ml/min/1.73 sqM) Est GFR (CKD-EPI)NonAf 48 (>60 ml/min/1.73 sqM) Glucose 128 H (74-99) mg/dL Plasma Lactic Acid Chad (0.7-2.0) mmol/L Calcium 9.7 (8.4-10.2) mg/dL Magnesium 1.5 L (1.6-2.3) mg/dL Total Bilirubin 0.5 (0.2-1.3) mg/dL AST 21 (14-36) U/L ALT 22 (9-52) U/L Alkaline Phosphatase 72 (38-126) U/L Total Protein 6.9 (6.3-8.2) g/dL Albumin 3.8 (3.5-5.0) g/dL Urine Color Urine Appearance (Clear) Urine pH (5.0-8.0) Ur Specific [employer] (1.001-1.035) Urine Protein (Negative) Urine Glucose (UA) (Negative) Urine Ketones (Negative) Urine Blood (Negative) Urine Nitrite (Negative) Urine Bilirubin (Negative) Urine Urobilinogen (<2.0) mg/dL Ur Leukocyte Esterase (Negative) Urine RBC (0-5) /hpf Urine WBC (0-5) /hpf Urine Bacteria (None) /hpf Urine Mucus (None) /hpf 02/12/18 02/12/18 Range/Units 08:15 10:16 WBC (3.8-10.6) k/uL RBC (3.80-5.40) m/uL Hgb (11.4-16.0) gm/dL Hct (34.0-46.0) % MCV (80.0-100.0) fL MCH (25.0-35.0) pg MCHC (31.0-37.0) g/dL RDW (11.5-15.5) % Plt Count (150-450) k/uL Neutrophils % % Lymphocytes % % Monocytes % % Eosinophils % % Basophils % % Neutrophils # (1.3-7.7) k/uL Lymphocytes # (1.0-4.8) k/uL Monocytes # (0-1.0) k/uL Eosinophils # (0-0.7) k/uL Basophils # (0-0.2) k/uL Anisocytosis Macrocytosis PT (9.0-12.0) sec INR (<1.2) APTT (22.0-30.0) sec Sodium (137-145) mmol/L Potassium (3.5-5.1) mmol/L Chloride (98-107) mmol/L Carbon Dioxide (22-30) mmol/L Anion Gap mmol/L BUN (7-17) mg/dL Creatinine (0.52-1.04) mg/dL Est GFR (CKD-EPI)AfAm (>60 ml/min/1.73 sqM) Est GFR (CKD-EPI)NonAf (>60 ml/min/1.73 sqM) Glucose (74-99) mg/dL Plasma Lactic Acid Chad 1.2 (0.7-2.0) mmol/L Calcium (8.4-10.2) mg/dL Magnesium (1.6-2.3) mg/dL Total Bilirubin (0.2-1.3) mg/dL AST (14-36) U/L ALT (9-52) U/L Alkaline Phosphatase (38-126) U/L Total Protein (6.3-8.2) g/dL Albumin (3.5-5.0) g/dL Urine Color Light Yellow Urine Appearance Clear (Clear) Urine pH 6.0 (5.0-8.0) Ur Specific [employer] 1.012 (1.001-1.035) Urine Protein 1+ H (Negative) Urine Glucose (UA) Negative (Negative) Urine Ketones Negative (Negative) Urine Blood Trace H (Negative) Urine Nitrite Negative (Negative) Urine Bilirubin Negative (Negative) Urine Urobilinogen <2.0 (<2.0) mg/dL Ur Leukocyte Esterase Small H (Negative) Urine RBC 4 (0-5) /hpf Urine WBC 40 H (0-5) /hpf Urine Bacteria Rare H (None) /hpf Urine Mucus Rare H (None) /hpf 02/12/18 09:13 EKG shows normal sinus rhythm normal EKG. Ventricular rate of 87 bpm. Was 144 ms. She restorationist 80 ms. QTQTC 36/464 ms. No evidence of ST elevation or T-wave inversion. - Radiology Data Radiology results: report reviewed [place] for enteritis. Colitis. Follow-up may be to benefit for assessing for obstruction. Patient did not receive oral contrast. Postprocedural changes. Interval progression of hydronephrosis bilaterally. Fluid-filled loops of small bowel are noted. Surgical clips with the mesentery. There is increased density with no septicemia sat along the anterior abdominal wall likely due to injections. There is questionable wall thickening along the colon noted.. Chest x-ray shows chronic changes without acute cardio pulmonary disease. Disposition Clinical Impression: Nausea & vomiting, UTI (urinary tract infection), Colitis Disposition: ADMITTED IP TO THIS HOSP Condition: Stable Is patient prescribed a controlled substance at d/c from ED?: No Referrals: Kevin Metzger MD [Primary Care Provider] - 1-2 days Time of Disposition: 12:22
[2018-02-12] MEDS ORDERED: methylPREDNISolone SOD SUCCI 125 MG/2 ML VIAL IV STA (07:43)
[2018-02-12] MEDS ORDERED: diphenhydrAMINE 50 MG/ML 1 ML VIAL IVP STA (07:43)
[2018-02-12] MEDS ORDERED: FAMOTIDINE 20 MG/2 ML VIAL IV STA (07:43)
[2018-02-12] MEDS: SODIUM CHLORIDE 0.9% 500 ML IV SCH ×4 (08:13→10:19)
[2018-02-12 08:35] LABS: Albumin 3.8 g/dL (3.5-5.0); Potassium 4.6 mmol/L (3.5-5.1); Total Protein 6.9 g/dL (6.3-8.2)
[2018-02-12 08:36] LABS: Calcium 9.7 mg/dL (8.4-10.2); Total Bilirubin 0.5 mg/dL (0.2-1.3)
[2018-02-12 08:37] LABS: Magnesium 1.5 mg/dL (1.6-2.3)
[2018-02-12 08:44] LABS: Prothrombin Time 9.6 sec (9.0-12.0)
[2018-02-12 08:49] LABS: Anisocytosis Slight; Basophils % (A) 0 %; Eosinophils % (A) 0 %; HCT 32.9 % (34.0-46.0); Lymphocytes # (A) 1.1 k/uL (1.0-4.8); Lymphocytes % (A) 11 %; MCH 32.4 pg (25.0-35.0); MCHC 32.4 g/dL (31.0-37.0); MCV 99.9 fL (80.0-100.0); Macrocytosis Slight; Mean Platelet Volume 9.5; Monocytes # (A) 0.3 k/uL (0-1.0); Monocytes % (A) 3 %; Neutrophils # (A) 8.4 k/uL (1.3-7.7); Neutrophils % (A) 85 %; RBC 3.29 m/uL (3.80-5.40); RDW 16.4 % (11.5-15.5); WBC 9.9 k/uL (3.8-10.6)
[2018-02-12 08:55] LABS: HGB 10.7 gm/dL (11.4-16.0); Platelet Count 150 k/uL (150-450)
[2018-02-12 09:02] LABS: Partial Thromboplastin Time 20.3 sec (22.0-30.0)
[2018-02-12] MEDS ORDERED: LABETALOL 5 MG/ML VIAL MDV IVP STA (09:14)
--- NOTE | 2018-02-12 10:01 | CT ---
EXAMINATION TYPE: CT abdomen pelvis w con DATE OF EXAM: 02/12/2018 COMPARISON: Prior CT 01/06/2018 HISTORY: abdominal pain/vomiting CT DLP: 559 mGycm Automated exposure control for dose reduction was used. TECHNIQUE: Helical acquisition of images from the lung bases through the pelvis have been completed. CONTRAST: Performed without Oral Contrast and with IV Contrast, patient injected with 80 mL of Isovue 300. FINDINGS: There are inflammatory changes present within the mesenteric fat, some fluid density presen t along the paracolic gutter on the right, fluid also present within the mesenteric fat. LUNG BASES: No significant abnormality is appreciated. AORTA: No significant abnormality is appreciated. LIVER/GB: Stable, patient is post cholecystectomy, liver is stable PANCREAS: No significant abnormality is seen. SPLEEN: No significant abnormality is seen. ADRENALS: No significant abnormality is seen. KIDNEYS: Double-J right ureteral stent is present, hydronephrosis has progressed in the interval in b oth kidneys.. REPRODUCTIVE ORGANS: Not seen. BOWEL: Fluid-filled loops of small bowel are noted. Surgical clips present within the mesentery, sma ll midline abdominal wall hernia anteriorly contains fat, surgical clips present within the subcutane ous fat and along the anterior abdominal wall, small umbilical hernia contains fat, left paramedian Hernia also contains fat at this level, postop changes are present. Increased density within the subc utaneous fat along the anterior abdominal wall likely due to injections. Question wall thickening ac ng the colon. FREE AIR: No Free Air visible. ASCITES: None visible. PELVIC ADENOPATHY: None visualized. RETROPERITONEAL ADENOPATHY: No Retroperitoneal Adenopathy visible. URINARY BLADDER: No significant abnormality is seen. OSSEOUS STRUCTURES: No significant abnormality is seen. IMPRESSION: CORRELATE FOR POSSIBLE ENTERITIS, COLITIS. FOLLOW-UP MAY BE OF BENEFIT TO ASSESS FOR OBSTRUCTION, PAT IENT DID NOT RECEIVE ORAL CONTRAST. POSTPROCEDURAL CHANGES. INTERVAL PROGRESSION OF HYDRONEPHROSIS BI LATERALLY. ADDITIONAL findings above.
--- NOTE | 2018-02-12 10:05 | XR ---
EXAMINATION TYPE: XR chest 1V portable DATE OF EXAM: 02/12/2018 HISTORY: Shortness of breath. COMPARISON: 01/26/2018 TECHNIQUE: Single view of the chest is submitted. FINDINGS: Demonstrated are scattered senescent parenchymal change. Right-sided MediPort catheter is in place. There is no evidence for focal infiltrate. The heart is stable. Hilar and mediastinal structures are within normal limits. Degenerative changes are seen of the dorsal spine. IMPRESSION: 1. Chronic changes without evidence for acute pulmonary disease.
[2018-02-12 10:37] LABS: Appearance,Urine Clear (Clear); Bacteria,Urine Rare /hpf; Bilirubin,Urine Negative (Negative); Blood,Urine Trace (Negative); Color,Urine Light Yellow; Glucose,Urine (UA) Negative (Negative); Ketones,Urine Negative (Negative); Leukocyte Esterase,Urine Small (Negative); Mucus,Urine Rare /hpf; Nitrite,Urine Negative (Negative); Protein,Urine 1+ (Negative); RBC,Urine 4 /hpf (0-5); Specific Gravity,Urine 1.012 (1.001-1.035); Urobilinogen,Urine <2.0 mg/dL (<2.0); WBC,Urine 40 /hpf (0-5)
[2018-02-12] MEDS ORDERED: HYDROmorphone 0.5 MG/0.5 ML SYRINGE IVP STA (11:42)
[2018-02-12] MEDS ORDERED: KETOROLAC 30 MG/ML 1 ML VIAL IVP PRN (12:23)
[2018-02-12] MEDS ORDERED: LORazepam 2 MG/ML INJ IV PRN (12:23)
[2018-02-12] MEDS ORDERED: IBUPROFEN 400 MG TAB PO PRN (12:23)
[2018-02-12] MEDS ORDERED: ACETAMINOPHEN TAB 325 MG TAB PO PRN (12:23)
[2018-02-12] MEDS ORDERED: NALOXONE 0.4 MG/ML 1 ML VIAL IV PRN (12:23)
[2018-02-12] MEDS: SODIUM CHLORIDE 0.9% 1,000 ML IV SCH ×2 (15:33→18:13)
[2018-02-12] MEDS: HYDROmorphone 1 MG/ML 1 ML SYRINGE IVP PRN ×3 (16:50→23:31)
[2018-02-12] MEDS ORDERED: POLYETHYLENE GLYCOL 3350 17 GM POWD.PACK PO PRN (17:07)
[2018-02-12] MEDS ORDERED: ALPRAZolam 0.25 MG TAB PO PRN (17:07)
[2018-02-12] MEDS: ONDANSETRON 4 MG/2 ML VIAL IVP PRN (17:22)
[2018-02-12] MEDS: metroNIDAZOLE-NS PMX 500 MG in SALINE 1 100ML.BAG IVPB SCH ×2 (19:46→23:30)
[2018-02-12] MEDS ORDERED: traZODone HCL 100 MG TAB PO SCH (21:00)
[2018-02-12] MEDS: hydrALAZINE HCL 50 MG TAB PO SCH (21:07)
[2018-02-12] MEDS: GABAPENTIN 300 MG CAP PO SCH (21:07)
[2018-02-12 21:23] VITALS: RESP 16
--- NOTE | 2018-02-12 21:28 | HP ---
HISTORY AND PHYSICAL CHIEF COMPLAINT: Abdominal pain and vomiting. HISTORY OF PRESENT ILLNESS: This is another admission for this 62-year-old white female with progressing ovarian carcinoma. She was just discharged recently and was at [facility] to get into a chcf or assisted living closer to her family after which she was to start on physical therapy. She has never been able to get there. She is back in the emergency room now with more abdominal pain and vomiting and is readmitted. REVIEW OF SYSTEMS: She has no other symptoms than the pain. She has had no shortness of breath, hematemesis, melena, etc. Past medical history, family history, personal and social histories are all unchanged from her recent admission and discharge. PHYSICAL EXAM: Blood pressure 118/80 with a pulse of 96, respirations of 38, and she is afebrile. In general, she appeared to be pale, dehydrated, and uncomfortable. Head, ears, eyes, nose, mouth, and throat were normal. Neck veins not distended. Thyroid is not enlarged. Chest is clear. Cardiac exam is normal. The abdomen is tender over the lower aspects and bowel sounds are heard, but they are diminished. Extremities are normal. IMPRESSION: 1. Abdominal pain. 2. Carcinoma of the ovary. 3. Urinary tract infection. 4. Dehydration. PLAN: 1. Bed rest. 2. IV fluids. 3. Rehydrate. 4. Analgesics. 5. Treat urinary tract infection. 6. Watch for recurrent bowel obstruction. MMODL / IJN: [id number] /
--- NOTE | 2018-02-12 23:34 | CONS ---
CONSULTATION DATE OF SERVICE: 02/12/2018. REASON FOR CONSULTATION: Colitis. HISTORY OF PRESENT ILLNESS: The patient is 62 -year-old female, who was recently admitted at [facility]. She did have UTI with urine cultures that grew VRE thought to be more of a colonizer not a true pathogen. During that admission, the patient did develop diarrhea. However, stool for C difficile was negative. After stabilization, the patient discharged home in stable condition. The patient said she was doing well and had no further diarrhea. She had a good bowel movement on Monday. Yesterday the patient started having a cramping lower abdominal pain that has gradually increased in severity to be almost 7 to 8/10, and no radiation. The patient has associated nausea and vomiting with it and denies having any diarrhea. She did have a bowel movement today with somewhat loose according to the nursing staff and the patient denies any high-grade fever, rigors and chills. With these symptoms, the patient has been evaluated by the ER physician. On arrival to the ER the patient has been afebrile. Highest temperature has been 99.2. The patient's white count normal at 9.9. UA with small leukocyte esterase. The patient did have a CT of the abdomen and pelvis completed. Unfortunately it was done with contrast. The patient did have a double-J catheter and stents in both kidneys and hydronephrosis in both kidneys. There was fluid-filled loops of small bowel noted. Surgical clips within mesentery. Small midline wall hernia containing fat, increased intensity with abdominal was likely from infection. Question around the colon with concern for possible enteritis. The patient subsequently has been admitted to the hospital. Infectious disease was consulted for further recommendation regarding antibiotic therapy. REVIEW OF SYSTEMS: CONSTITUTIONAL: Positive for weakness. Denies having any high grade fever. Eyes: No complaint. ENT no complaint. Respiratory: No complaint. Cardiovascular no complaint. Genitourinary no complaint. Gastrointestinal: As per HPI. Musculoskeletal no complaint. Integumentary: No complaint. Psychological no complaint. Endocrine no complaint. Neurologic: No complaint. PAST MEDICAL HISTORY: DVT, gastroesophageal reflux disease, history of kidney stones, hydronephrosis, ovarian cancer. Previous history of VRE urinary tract infection. PAST SURGERY HISTORY: Adenoidectomy, appendectomy, cholecystectomy, heart catheterization with stent, hysterectomy, tonsillectomy. SOCIAL HISTORY: No history of smoking, drinking or drug use. FAMILY HISTORY: Mother with history of diabetes and renal failure. Brother history of lung cancer. Father history of dementia. ALLERGIES: To GABAPENTIN, IODINE, PENICILLIN, CODEINE AND MORPHINE. MEDICATIONS: Include the patient is currently on: Tylenol, Xanax, Catapres, Cardizem, Lexapro, fentanyl patch, iron sulfate, Neurontin, hydralazine, Dilaudid, Motrin, Toradol, Ativan, Flagyl, Narcan, Zofran and Protonix, MiraLAX, and Desyrel. PHYSICAL EXAMINATION: On examination, blood pressure is 133/62 with a pulse of 67, temperature 98.8. She is 96% on room air. General description is a middle-aged female lying in bed in no distress. No tachypnea or accessory muscles of respiration use. HEENT examination shows slight pallor. No scleral icterus. Oral mucosa membranes are dry. No pharyngeal edema or thrush. Neck: Trachea central. No thyromegaly. LUNGS: Unlabored breathing. Clear to auscultation anteriorly. Heart S1, S2. Regular rate and rhythm. Abdomen is soft, no tenderness. No guarding. No rigidity. Extremities are no edema of the feet. Skin Examination: No rash or mass palpable. Neurological: Patient is awake, alert, oriented times three. Mood and affect normal. LABS: Hemoglobin is 10.7, white count 9.9 with a BUN of 17, creatinine 1.1, electrolytes have been normal. Liver enzymes are normal. Urine is slightly positive. CT report as mentioned above. DIAGNOSTIC IMPRESSION AND PLAN: Patient admitted to the hospital with crampy abdominal pain with intractable vomiting, but no significant diarrhea with question of possible enteritis and a question of small bowel obstruction. The significant inflammation of the large bowel to be suspicious for infectious colitis such as C diff, even though the patient has been antibiotic. However, she did have a stool for C difficile which has been negative. PLAN: 1. We will start the patient empirically on Rocephin 1 g daily, Flagyl 500 every 8 hours. 2. If the patient develops any loose stool, to obtain stool for C diff, stool culture. 3. Gentle IV fluid. 4. Await surgery evaluation. 5. We will follow up on clinical condition and culture to further adjust medication if needed. Thank you for this consultation. We will follow this patient with you. MMODL / IJN: [id number] /
[2018-02-13] MEDS: ONDANSETRON 4 MG/2 ML VIAL IVP PRN (02:58)
[2018-02-13] MEDS: HYDROmorphone 1 MG/ML 1 ML SYRINGE IVP PRN ×2 (02:59→05:52)
[2018-02-13] MEDS: SODIUM CHLORIDE 0.9% 1,000 ML IV SCH (05:52)
[2018-02-13] MEDS: metroNIDAZOLE-NS PMX 500 MG in SALINE 1 100ML.BAG IVPB SCH (08:13)
[2018-02-13] MEDS: hydrALAZINE HCL 50 MG TAB PO SCH (08:14)
[2018-02-13] MEDS: GABAPENTIN 300 MG CAP PO SCH (08:16)
[2018-02-13] MEDS ORDERED: ESCITALOPRAM 10 MG TAB PO SCH (09:00)
[2018-02-13] MEDS ORDERED: FERROUS SULFATE 325 MG TAB PO SCH (09:00)
[2018-02-13] MEDS ORDERED: PANTOPRAZOLE 40 MG/10 ML VIAL IV SCH (09:00)
[2018-02-13] MEDS ORDERED: DILTIAZEM CD 120 MG CAP.ER.24H PO SCH (09:00)
[2018-02-13] MEDS ORDERED: cloNIDine HCL 0.1 MG TAB PO SCH (09:00)
[2018-02-13 10:30] VITALS: BP 131/64; PULSE 100; TEMP 98.1
--- NOTE | 2018-02-13 11:44 | DS ---
DISCHARGE SUMMARY CHIEF COMPLAINT: Lower abdominal pain. HISTORY OF PRESENT ILLNESS AND PHYSICAL EXAM: The details of this lady's history and physical can be found in the initial workup. LABORATORY STUDIES: While she was in a hospital she had laboratory studies, details which can be found in the laboratory section of her chart. COURSE IN HOSPITAL: After admission she was placed on bedrest and started on intravenous fluids and analgesics. By the following morning, the pain was gone. She had no fever, chills, diarrhea, bloating, nausea, vomiting, urinary complaints, etc. She had an appointment in [place] for chemotherapy at 12:30 p.m. and it was felt that she could be discharged and taken directly to her appointment at [facility]. FINAL DIAGNOSES: 1. Lower abdominal pain. 2. Carcinoma of the ovary. 3. Urinary tract infection. 4. Obstructive ureteropathy with renal failure. 5. Hypertension. OPERATIONS: None. CONSULTATIONS: None. She is improved. MMODL / IJN: [id number] /
== END 2018-02-13 10:40 | disposition home or self-care (01) | DRG 755 ==
LOC: EC 06:32 → 5MS5E 12:29
PROVIDERS: ADMIT Family Medicine; ATTEND Family Medicine
DX: C56.9 Malignant neoplasm of unspecified ovary (principal); N39.0 Urinary tract infection, site not specified; E86.0 Dehydration; I10 Essential (primary) hypertension; K21.9 Gastro-esophageal reflux disease without esophagitis; K52.9 Noninfective gastroenteritis and colitis, unspecified; N19 Unspecified kidney failure; Z80.1 Family history of malignant neoplasm of trachea, bronchus and lung; Z82.0 Family history of epilepsy and other diseases of the nervous system; Z83.3 Family history of diabetes mellitus; Z86.718 Personal history of other venous thrombosis and embolism; Z87.440 Personal history of urinary (tract) infections; Z87.442 Personal history of urinary calculi; Z90.710 Acquired absence of both cervix and uterus; Z79.899 Other long term (current) drug therapy; Z79.891 Long term (current) use of opiate analgesic; Z88.5 Allergy status to narcotic agent; Z88.0 Allergy status to penicillin; Z88.8 Allergy status to other drugs, medicaments and biological substances; Z90.49 Acquired absence of other specified parts of digestive tract
CPT/HCPCS: 36415; 71045; 74177; 80053; 81001; 83605; 83735; 85025; 85610; 85730; 87040; 87086; 93005; 96365; 96368; 96375; 96376; 99285

== ENCOUNTER 2018-02-19 21:59 | Inpatient (IN) | payer BC ==
--- NOTE | 2018-02-19 22:43 | ED ---
General Adult HPI - General Chief complaint: Recheck/Abnormal Lab/Rx Stated complaint: cancer pt/leg pain Time Seen by Provider: 02/19/18 22:05 Source: patient, family Mode of arrival: wheelchair Limitations: no limitations - History of Present Illness Initial comments: Dwain Galloway is a 62-year-old female with a history of metastatic ovarian cancer currently undergoing chemotherapy who presents to the emergency department today for evaluation of bilateral lower extremity cramping. Patient reports she 's experienced this in the past after chemotherapy when she has had low magnesium and low potassium. Patient reports the past she has required admission to hospital for electrolyte replacement so she came to the ER today for evaluation. Patient reports that she had her fifth round of chemotherapy last Monday, she states that she gets chemo every 3-4 weeks and that she has required admission to the hospital after chemotherapy in the past. States that she has one more round of chemotherapy scheduled and then she has done with chemotherapy. - Related Data Home Medications Medication Instructions Recorded Confirmed ALPRAZolam [Xanax] 0.25 mg PO HS PRN 08/25/14 02/19/18 Diltiazem HCl [Diltiazem 24Hr ER] 120 mg PO DAILY 08/25/14 02/19/18 Polyethylene Glycol 3350 [Miralax] 17 gm PO BID PRN 10/05/17 02/19/18 Gabapentin [Neurontin] 300 mg PO TID 10/17/17 02/19/18 Acetaminophen Tab [Tylenol] 325 mg PO Q4H PRN 12/21/17 02/19/18 Escitalopram [Lexapro] 10 mg PO DAILY 12/21/17 02/19/18 Ferrous Sulfate [Iron (65 MG 325 mg PO DAILY 12/21/17 02/19/18 Elemental)] Hydrocodone/Acetaminophen [[place] 1 tab PO Q4HR PRN 12/21/17 02/19/18 5-325] Magnesium Hydroxide [Milk of 2,400 mg PO DAILY PRN 12/21/17 02/19/18 Magnesia] Ondansetron HCl [Zofran] 8 mg PO Q6H PRN 12/21/17 02/19/18 cloNIDine HCL [Catapres] 0.1 mg PO DAILY 12/21/17 02/19/18 fentaNYL 25MCG/HR PATCH [Duragesic 1 patch TRANSDERM Q72H PRN 02/12/18 02/19/18 25MCG/HR] hydrALAZINE HCL [Apresoline] 50 mg PO DAILY 02/19/18 02/19/18 hydrALAZINE HCL [Apresoline] 50 mg PO DAILY PRN 02/19/18 02/19/18 Previous Rx's Medication Instructions Recorded Pantoprazole [Protonix] 40 mg PO PRETTY-MARY #30 tablet. 01/15/18 traZODone HCL [Desyrel] 100 mg PO HS #30 tab 02/05/18 Allergies Allergy/AdvReac Type Severity Reaction Status Date / Time adhesive Allergy Rash/Hives Verified 02/19/18 22:09 carboplatin Allergy Anaphylaxis Verified 02/19/18 22:09 iodine Allergy Rash/Hives Verified 02/19/18 22:09 Penicillins Allergy Rash/Hives Verified 02/19/18 22:09 codeine AdvReac Nausea & Verified 02/19/18 22:09 Vomiting morphine AdvReac Nausea & Verified 02/19/18 22:09 Vomiting Review of Systems ROS Statement: Those systems with pertinent positive or pertinent negative responses have been documented in the HPI. ROS Other: All systems not noted in ROS Statement are negative. Past Medical History Past Medical History: Coronary Artery Disease (CAD), Cancer, Deep Vein Thrombosis (DVT), GERD/Reflux Additional Past Medical History / Comment(s): 2006 Ovarian cancer with surgery/ chemo, reoccurrance ovarian cancer 08/2017 with mets and receiving chemo(per pt had tx tu01-23-18 and mon01-24-18),pt stated they also "found cancer in stomach and bowel", recently hospitalized with UTI/partial small bowel obstruction/ureteral obstruction, anemia, past UTIs, R leg DVT 2014, bilateral TMJ with surgery/pins, partial bowel obstruction, kidney stones, hydronephrosis. History of Any Multi-Drug Resistant Organisms: VRE Date of last positivie culture/infection: 01/26/18 MDRO Source:: urine Past Surgical History: Adenoidectomy, Appendectomy, Cholecystectomy, Heart Catheterization With Stent, Hysterectomy, Tonsillectomy Additional Past Surgical History / Comment(s): ovarian cancer with bilateral oopherectomy/hysterectomy 2005; 2 open exploratory abdominal surgery, R chest mediport placed 2011, bilateral retrograde pyelogram cystoscopy with R ureter stent, jaws have pins d/t surgery for TMJ, colonoscopy Past Anesthesia/Blood Transfusion Reactions: No Reported Reaction Additional Past Anesthesia/Blood Transfusion Reaction / Comment(s): Pt has received blood in past without reaction. Date of Last Stent Placement:: 2011 Past Psychological History: Anxiety, Depression Smoking Status: Never smoker - Past Family History Mother Family Medical History: Diabetes Mellitus, Dialysis Brother(s) Family Medical History: Cancer Additional Family Medical History / Comment(s): lung cancer- since passed Sister(s) Family Medical History: CVA/TIA Father Family Medical History: Dementia, Neurologic Disorder Additional Family Medical History / Comment(s): alzheimers General Exam - General Exam Comments Initial Comments: GENERAL: Chronically ill appearing debilitated cancer patient HENT: Normocephalic, Atraumatic. Temporal wasting noted EYES: The sclera were anicteric and conjunctiva were pink and moist. Extraocular movements were intact and pupils were equal round and reactive to light. Eyelids were unremarkable. PULMONARY: Unlabored respirations. Good breath sounds bilaterally. No audible rales rhonchi or wheezing was noted. CARDIOVASCULAR: There is a regular rate and rhythm without any murmurs gallops or rubs. ABDOMEN: Soft and nontender with normal bowel sounds. No significant ascites appreciated SKIN: Skin is pale, dry NEUROLOGIC: Patient is alert and oriented x3. Cranial nerves II through XII are grossly intact. Motor and sensory are also intact. Normal speech, volume and content. Symmetrical smile. MUSCULOSKELETAL: Normal extremities with adequate strength and full range of motion. No lower extremity swelling or edema. No calf tenderness. LYMPHATICS: No significant lymphadenopathy is noted PSYCHIATRIC: Situational depression Limitations: no limitations Limitations: no limitations Course Vital Signs 02/19/18 02/19/18 22:01 23:32 Temperature 98.8 F 99.0 F Pulse Rate 105 H 85 Respiratory 24 18 Rate Blood Pressure 190/97 198/93 O2 Sat by Pulse 98 98 Oximetry Medical Decision Making - Medical Decision Making The patient was seen and evaluated, history is obtained from patient and review of medical records Labs Ordered Patient in significant pain, Zofran and Dilaudid ordered Labs reveal normal potassium level however magnesium is extremely low at 1.1 despite the patient's compliance with oral magnesium repletion therapy Patient care was discussed with primary care physician Dr. Metzger who is familiar with the patient and agrees with plan for admission for IV magnesium replacement as well as pain management with IV narcotics. Admission orders placed - Lab Data Result diagrams: 02/19/18 22:30 02/19/18 22:30 Lab Results 02/19/18 02/19/18 Range/Units 22:30 22:30 WBC 15.1 H (3.8-10.6) k/uL RBC 3.10 L (3.80-5.40) m/uL Hgb 10.1 L (11.4-16.0) gm/dL Hct 29.9 L (34.0-46.0) % MCV 96.5 (80.0-100.0) fL MCH 32.7 (25.0-35.0) pg MCHC 33.8 (31.0-37.0) g/dL RDW 14.8 (11.5-15.5) % Plt Count 150 (150-450) k/uL Neutrophils % 80 % Lymphocytes % 15 % Monocytes % 2 % Eosinophils % 1 % Basophils % 0 % Neutrophils # 12.2 H (1.3-7.7) k/uL Lymphocytes # 2.2 (1.0-4.8) k/uL Monocytes # 0.3 (0-1.0) k/uL Eosinophils # 0.2 (0-0.7) k/uL Basophils # 0.0 (0-0.2) k/uL Sodium 138 (137-145) mmol/L Potassium 4.6 (3.5-5.1) mmol/L Chloride 105 (98-107) mmol/L Carbon Dioxide 29 (22-30) mmol/L Anion Gap 4 mmol/L BUN 17 (7-17) mg/dL Creatinine 0.69 (0.52-1.04) mg/dL Est GFR (CKD-EPI)AfAm >90 (>60 ml/min/1.73 sqM) Est GFR (CKD-EPI)NonAf >90 (>60 ml/min/1.73 sqM) Glucose 115 H (74-99) mg/dL Calcium 9.2 (8.4-10.2) mg/dL Magnesium 1.1 L (1.6-2.3) mg/dL Total Bilirubin 0.2 (0.2-1.3) mg/dL AST 20 (14-36) U/L ALT 23 (9-52) U/L Alkaline Phosphatase 65 (38-126) U/L Total Protein 6.0 L (6.3-8.2) g/dL Albumin 3.4 L (3.5-5.0) g/dL Disposition Clinical Impression: Hypomagnesemia, Cancer associated pain Disposition: ADMITTED IP TO THIS [facility] Condition: Good Is patient prescribed a controlled substance at d/c from ED?: No Referrals: Kevin Metzger MD [Primary Care Provider] - 1-2 days
[2018-02-19 22:45] LABS: Basophils % (A) 0 %; Eosinophils # (A) 0.2 k/uL (0-0.7); Eosinophils % (A) 1 %; HCT 29.9 % (34.0-46.0); HGB 10.1 gm/dL (11.4-16.0); Lymphocytes # (A) 2.2 k/uL (1.0-4.8); Lymphocytes % (A) 15 %; MCH 32.7 pg (25.0-35.0); MCHC 33.8 g/dL (31.0-37.0); MCV 96.5 fL (80.0-100.0); Mean Platelet Volume 9.8; Monocytes # (A) 0.3 k/uL (0-1.0); Monocytes % (A) 2 %; Neutrophils # (A) 12.2 k/uL (1.3-7.7); Neutrophils % (A) 80 %; Platelet Count 150 k/uL (150-450); RDW 14.8 % (11.5-15.5); WBC 15.1 k/uL (3.8-10.6)
[2018-02-19] MEDS ORDERED: ONDANSETRON 4 MG/2 ML VIAL IVP STA (22:54)
[2018-02-19] MEDS ORDERED: HYDROmorphone 1 MG/ML 1 ML SYRINGE IVP STA (22:54)
[2018-02-19 22:56] LABS: ALT 23 U/L (9-52); AST 20 U/L (14-36); Albumin 3.4 g/dL (3.5-5.0); Alkaline Phosphatase 65 U/L (38-126); Anion Gap 4 mmol/L; Blood Urea Nitrogen 17 mg/dL (7-17); Calcium 9.2 mg/dL (8.4-10.2); Carbon Dioxide 29 mmol/L (22-30); Chloride 105 mmol/L (98-107); Glucose 115 mg/dL (74-99); Magnesium 1.1 mg/dL (1.6-2.3); Potassium 4.6 mmol/L (3.5-5.1); Sodium 138 mmol/L (137-145); Total Bilirubin 0.2 mg/dL (0.2-1.3)
[2018-02-19] MEDS ORDERED: Magnesium Replacement Protocol 1 EACH MISC MISCELLANE PRN (23:16)
[2018-02-20] MEDS ORDERED: IBUPROFEN 400 MG TAB PO PRN (00:16)
[2018-02-20] MEDS ORDERED: NALOXONE 0.4 MG/ML 1 ML VIAL IV PRN (00:16)
[2018-02-20] MEDS ORDERED: ALPRAZolam 0.25 MG TAB PO PRN (00:18)
[2018-02-20] MEDS ORDERED: MAGNESIUM HYDROXIDE 2,400 MG/10 ML CUP PO PRN (00:18)
[2018-02-20] MEDS ORDERED: hydrALAZINE HCL 50 MG TAB PO PRN (00:18)
[2018-02-20] MEDS ORDERED: HYDROcodone/APAP 5-325MG 1 EACH TAB PO PRN (00:18)
[2018-02-20] MEDS: MAGNESIUM SULFATE-D5W PMX 1 GM in DEXTROSE/WATER 1 100ML.BAG IVPB SCH ×3 (00:30→03:39)
[2018-02-20] MEDS: HYDROmorphone 1 MG/ML 1 ML SYRINGE IVP PRN ×5 (02:20→22:05)
[2018-02-20 02:32] VITALS: BMI 20.9
[2018-02-20] MEDS: ACETAMINOPHEN TAB 325 MG TAB PO PRN ×3 (04:22→20:13)
[2018-02-20] MEDS: GABAPENTIN 300 MG CAP PO SCH ×3 (07:35→22:05)
[2018-02-20] MEDS: DILTIAZEM CD 120 MG CAP.ER.24H PO SCH (07:35)
[2018-02-20] MEDS: cloNIDine HCL 0.1 MG TAB PO SCH (07:35)
[2018-02-20] MEDS: ESCITALOPRAM 10 MG TAB PO SCH (07:35)
[2018-02-20 08:44] LABS: Basophils # (A) 0.1 k/uL (0-0.2); Basophils % (A) 1 %; Eosinophils # (A) 0.2 k/uL (0-0.7); Eosinophils % (A) 2 %; HCT 32.8 % (34.0-46.0); HGB 10.9 gm/dL (11.4-16.0); Lymphocytes # (A) 2.4 k/uL (1.0-4.8); Lymphocytes % (A) 20 %; MCH 31.9 pg (25.0-35.0); MCHC 33.2 g/dL (31.0-37.0); MCV 96.1 fL (80.0-100.0); Mean Platelet Volume 8.5; Monocytes # (A) 0.5 k/uL (0-1.0); Monocytes % (A) 4 %; Neutrophils # (A) 8.7 k/uL (1.3-7.7); Neutrophils % (A) 72 %; Platelet Count 154 k/uL (150-450); RBC 3.41 m/uL (3.80-5.40); WBC 12.2 k/uL (3.8-10.6)
[2018-02-20 08:52] LABS: ALT 17 U/L (9-52); AST 23 U/L (14-36); Albumin 3.6 g/dL (3.5-5.0); Alkaline Phosphatase 73 U/L (38-126); Anion Gap 10 mmol/L; Blood Urea Nitrogen 14 mg/dL (7-17); Calcium 9.6 mg/dL (8.4-10.2); Carbon Dioxide 26 mmol/L (22-30); Chloride 102 mmol/L (98-107); Glucose 94 mg/dL (74-99); Magnesium 2.2 mg/dL (1.6-2.3); Potassium 4.7 mmol/L (3.5-5.1); Sodium 138 mmol/L (137-145); Total Bilirubin 0.4 mg/dL (0.2-1.3); Total Protein 6.4 g/dL (6.3-8.2)
[2018-02-20] MEDS ORDERED: POLYETHYLENE GLYCOL 3350 17 GM POWD.PACK PO PRN (09:56)
[2018-02-20] MEDS ORDERED: ONDANSETRON 4 MG TAB PO PRN (11:20)
[2018-02-20] MEDS ORDERED: ACETAMINOPHEN TAB 325 MG TAB PO PRN (11:20)
[2018-02-20] MEDS: ONDANSETRON 4 MG/2 ML VIAL IVP PRN ×2 (15:28→22:03)
[2018-02-20] MEDS: MAGNESIUM OXIDE 400 MG TAB PO SCH ×2 (17:37→22:05)
--- NOTE | 2018-02-20 17:39 | HP ---
HISTORY AND PHYSICAL CHIEF COMPLAINT: Weakness and muscle cramps in the legs. HISTORY OF PRESENT ILLNESS: This is another admission for this 62-year-old white female who is being treated for carcinoma of the ovary. She is getting chemotherapy and every time she gets treatment, she develops severe cramps in the lower extremity secondary to her dropping her magnesium and potassium. She came in the emergency room with similar complaints. Magnesium was low at 1. REVIEW OF SYSTEMS: She is otherwise having no problems. She has had no headaches, neurologic problems, chest pain, shortness of breath, abdominal pain, vomiting, diarrhea, urinary complaints, etc. Past medical history, family history, personal and social histories are all otherwise unchanged from her recent admitting and discharge summaries a week ago. PHYSICAL EXAMINATION: VITAL SIGNS: Blood pressure is 151/78 with a pulse of 73, respirations of 25 and she is afebrile. GENERAL: In general, she appeared to be pale, in no acute distress. Skin was dry lymph nodes not enlarged. HEENT: Head, ears, eyes, nose, mouth and throat were normal except for hair loss. CHEST: Chest is clear to auscultation. CARDIOVASCULAR: Cardiac exam is normal. ABDOMEN: Abdomen is soft and nontender. EXTREMITIES: Extremities are normal. IMPRESSION: 1. Hypokalemia. 2. Hypomagnesemia. 3. Carcinoma of the ovary. PLAN: Replace magnesium. MMODL / IJN: [id number] /
[2018-02-20] MEDS ORDERED: traZODone HCL 100 MG TAB PO SCH (21:00)
[2018-02-20] MEDS: HEPARIN SODIUM,PORCINE 5,000 UNIT/ML 1 ML VIAL SQ SCH (22:11)
[2018-02-21] MEDS: HYDROmorphone 1 MG/ML 1 ML SYRINGE IVP PRN ×2 (03:58→09:35)
[2018-02-21 06:13] VITALS: BP 137/71; PULSE 76; RESP 18; TEMP 97.8
[2018-02-21] MEDS ORDERED: PANTOPRAZOLE 40 MG TABLET PO SCH (07:30)
[2018-02-21] MEDS ORDERED: hydrALAZINE HCL 50 MG TAB PO SCH (09:00)
[2018-02-21] MEDS ORDERED: FERROUS SULFATE 325 MG TAB PO SCH (09:00)
[2018-02-21] MEDS: cloNIDine HCL 0.1 MG TAB PO SCH (09:34)
[2018-02-21] MEDS: GABAPENTIN 300 MG CAP PO SCH (09:34)
[2018-02-21] MEDS: HEPARIN SODIUM,PORCINE 5,000 UNIT/ML 1 ML VIAL SQ SCH (09:34)
[2018-02-21] MEDS: ESCITALOPRAM 10 MG TAB PO SCH (09:34)
[2018-02-21] MEDS: DILTIAZEM CD 120 MG CAP.ER.24H PO SCH (09:34)
[2018-02-21] MEDS: MAGNESIUM OXIDE 400 MG TAB PO SCH (11:10)
--- NOTE | 2018-02-21 15:18 | DS ---
DISCHARGE SUMMARY CHIEF COMPLAINT: Leg cramps and hypomagnesemia. HISTORY OF PRESENT ILLNESS AND PHYSICAL EXAM: Details of this lady's history and physical can be found in the initial workup. LABORATORY STUDIES: While she was in the hospital, she had laboratory studies, details of which can be found in the laboratory section of her chart. COURSE IN HOSPITAL: After admission, she was placed on bedrest, started on intravenous fluids and magnesium was replaced. She was doing well and was anxious to be discharged the following day and she will go home, home care, on the usual medications and continue her chemotherapy as an outpatient. FINAL DIAGNOSES: 1. Hypomagnesemia. 2. Leg cramps. 3. Carcinoma of the ovary. OPERATIONS: None. CONSULTATION: None. She is improved. MMDAVIONL / ROBERTN: [id number] /
== END 2018-02-21 13:18 | disposition home or self-care (01) | DRG 641 ==
LOC: EC 21:59 → 5ONC 02-20 00:34
PROVIDERS: ADMIT Family Medicine; ATTEND Family Medicine
DX: E83.42 Hypomagnesemia (principal); C56.9 Malignant neoplasm of unspecified ovary; C78.4 Secondary malignant neoplasm of small intestine; C78.5 Secondary malignant neoplasm of large intestine and rectum; E87.6 Hypokalemia; G89.3 Neoplasm related pain (acute) (chronic); I25.10 Atherosclerotic heart disease of native coronary artery without angina pectoris; K21.9 Gastro-esophageal reflux disease without esophagitis; Z80.1 Family history of malignant neoplasm of trachea, bronchus and lung; Z82.0 Family history of epilepsy and other diseases of the nervous system; Z83.3 Family history of diabetes mellitus; Z86.718 Personal history of other venous thrombosis and embolism; Z87.440 Personal history of urinary (tract) infections; Z87.442 Personal history of urinary calculi; Z90.710 Acquired absence of both cervix and uterus; Z90.722 Acquired absence of ovaries, bilateral; Z82.3 Family history of stroke; Z88.5 Allergy status to narcotic agent; Z88.0 Allergy status to penicillin; Z88.8 Allergy status to other drugs, medicaments and biological substances; R25.2 Cramp and spasm; T45.1X5A Adverse effect of antineoplastic and immunosuppressive drugs, initial encounter
CPT/HCPCS: 36415; 80053; 83735; 85025; 93005; 96365; 96375; 99284

== ENCOUNTER 2018-02-21 17:24 | Observation (INO) | payer BC ==
[2018-02-21] MEDS ORDERED: HYDROmorphone 1 MG/ML 1 ML SYRINGE IVP STA ×2 (18:22→20:23)
[2018-02-21] MEDS ORDERED: SODIUM CHLORIDE 0.9% 500 ML 500 ML IV STA (18:22)
--- NOTE | 2018-02-21 18:24 | ED ---
General Adult HPI - General Chief complaint: Weakness Stated complaint: Abnormal labs/weak Time Seen by Provider: 02/21/18 18:18 Source: patient, family, RN notes reviewed Mode of arrival: wheelchair Limitations: no limitations - History of Present Illness Initial comments: Patient is a pleasant [age]-year-old female presenting to the emergency department with concerns for low magnesium. Patient is on chemotherapy for ovarian cancer with metastasis to the stomach. Patient did receive treatment less than 1 week ago. Patient was just in the hospital for hypomagnesemia. Patient is having recurrent symptoms and concern that this may be reoccurring on her. Patient was just discharged from the hospital earlier today. Patient complains of achiness in her back and legs. Patient states last time they did provide Dilaudid for her that seemed to improve her symptoms. Patient states she has had some loose stools. - Related Data Home Medications Medication Instructions Recorded Confirmed ALPRAZolam [Xanax] 0.25 mg PO HS PRN 08/25/14 02/21/18 Diltiazem HCl [Diltiazem 24Hr ER] 120 mg PO DAILY 08/25/14 02/21/18 Polyethylene Glycol 3350 [Miralax] 17 gm PO BID PRN 10/05/17 02/21/18 Gabapentin [Neurontin] 300 mg PO TID 10/17/17 02/21/18 Acetaminophen Tab [Tylenol] 325 mg PO Q4H PRN 12/21/17 02/21/18 Escitalopram [Lexapro] 10 mg PO DAILY 12/21/17 02/21/18 Ferrous Sulfate [Iron (65 MG 325 mg PO DAILY 12/21/17 02/21/18 Elemental)] Hydrocodone/Acetaminophen [[place] 1 tab PO Q4HR PRN 12/21/17 02/21/18 5-325] Magnesium Hydroxide [Milk of 2,400 mg PO DAILY PRN 12/21/17 02/21/18 Magnesia] Ondansetron HCl [Zofran] 8 mg PO Q6H PRN 12/21/17 02/21/18 cloNIDine HCL [Catapres] 0.1 mg PO DAILY 12/21/17 02/21/18 fentaNYL 25MCG/HR PATCH [Duragesic 1 patch TRANSDERM Q72H PRN 02/12/18 02/21/18 25MCG/HR] hydrALAZINE HCL [Apresoline] 50 mg PO DAILY 02/19/18 02/21/18 hydrALAZINE HCL [Apresoline] 50 mg PO DAILY PRN 02/19/18 02/21/18 Previous Rx's Medication Instructions Recorded Pantoprazole [Protonix] 40 mg PO AC-BRKFST #30 tablet. 01/15/18 traZODone HCL [Desyrel] 100 mg PO HS #30 tab 02/05/18 Allergies Allergy/AdvReac Type Severity Reaction Status Date / Time adhesive Allergy Rash/Hives Verified 02/21/18 18:01 carboplatin Allergy Anaphylaxis Verified 02/21/18 18:01 iodine Allergy Rash/Hives Verified 02/21/18 18:01 Penicillins Allergy Rash/Hives Verified 02/21/18 18:01 codeine AdvReac Nausea & Verified 02/21/18 18:01 Vomiting morphine AdvReac Nausea & Verified 02/21/18 18:01 Vomiting Review of Systems ROS Statement: Those systems with pertinent positive or pertinent negative responses have been documented in the HPI. ROS Other: All systems not noted in ROS Statement are negative. Constitutional: Denies: fever Eyes: Denies: eye pain ENT: Denies: ear pain Respiratory: Denies: cough, dyspnea Cardiovascular: Denies: chest pain Endocrine: Reports: fatigue Gastrointestinal: Denies: abdominal pain Genitourinary: Denies: dysuria Musculoskeletal: Denies: arthralgia Skin: Denies: rash Past Medical History Past Medical History: Coronary Artery Disease (CAD), Cancer, Deep Vein Thrombosis (DVT), GERD/Reflux Additional Past Medical History / Comment(s): 2006 Ovarian cancer with surgery/ chemo, reoccurrance ovarian cancer 08/2017 with abdominal mets and receiving chemo(per pt had tx tue1 and wed ),pt stated they also "found cancer in stomach and bowel", recently hospitalized with UTI/partial small bowel obstruction/ureteral obstruction, anemia, past UTIs, R leg DVT 2014, bilateral TMJ with surgery/pins, partial bowel obstruction, kidney stones, hydronephrosis. History of Any Multi-Drug Resistant Organisms: VRE Date of last positivie culture/infection: 01/26/18 MDRO Source:: urine Past Surgical History: Adenoidectomy, Appendectomy, Cholecystectomy, Heart Catheterization With Stent, Hysterectomy, Tonsillectomy Additional Past Surgical History / Comment(s): ovarian cancer with bilateral oopherectomy/hysterectomy 2005; 2 open exploratory abdominal surgery, R chest mediport placed 2011, bilateral retrograde pyelogram cystoscopy with R ureter stent, jaws have pins d/t surgery for TMJ, colonoscopy Past Anesthesia/Blood Transfusion Reactions: No Reported Reaction Additional Past Anesthesia/Blood Transfusion Reaction / Comment(s): Pt has received blood in past without reaction. Date of Last Stent Placement:: 2011 Past Psychological History: Anxiety, Depression Smoking Status: Never smoker Past Alcohol Use History: None Reported Past Drug Use History: None Reported - Past Family History Mother Family Medical History: Diabetes Mellitus, Dialysis Brother(s) Family Medical History: Cancer Additional Family Medical History / Comment(s): lung cancer- since passed Sister(s) Family Medical History: CVA/TIA Father Family Medical History: Dementia, Neurologic Disorder Additional Family Medical History / Comment(s): alzheimers General Exam Limitations: no limitations General appearance: alert, in no apparent distress Head exam: Present: atraumatic Eye exam: Present: normal appearance, PERRL ENT exam: Present: normal oropharynx Neck exam: Present: normal inspection Respiratory exam: Present: normal lung sounds bilaterally Cardiovascular Exam: Present: regular rate, normal rhythm GI/Abdominal exam: Present: soft. Absent: tenderness Extremities exam: Present: normal inspection. Absent: pedal edema, calf tenderness Back exam: Present: normal inspection. Absent: tenderness Neurological exam: Present: alert Psychiatric exam: Present: normal affect, normal mood Skin exam: Present: normal color Course Vital Signs 02/21/18 02/21/18 02/21/18 17:42 18:45 18:46 Temperature 99.2 F Pulse Rate 90 77 Pulse Rate [ 88 Travel Pt ] Respiratory 20 18 Rate Blood Pressure 131/83 133/80 O2 Sat by Pulse 98 99 Oximetry EKG Findings - EKG Comments: EKG Findings:: Normal sinus rhythm 80. NH 114. QRS 76. QT 378. QTC 435. Normal axis. Normal QRS. No acute ST change. Medical Decision Making - Medical Decision Making Patient reevaluated and resting comfortably in bed. Patient states pain has improved however still has some. Patient does not feel comfortable with discharge home and requests admission. Case was discussed with Dr. Bone, covering for Dr. Metzger, who will admit. - Lab Data Result diagrams: 02/21/18 18:10 02/21/18 18:10 Lab Results 02/21/18 02/21/18 02/21/18 Range/Units 18:10 18:10 19:40 WBC 9.6 (3.8-10.6) k/uL RBC 3.32 L (3.80-5.40) m/uL Hgb 10.6 L (11.4-16.0) gm/dL Hct 31.7 L (34.0-46.0) % MCV 95.5 (80.0-100.0) fL MCH 32.0 (25.0-35.0) pg MCHC 33.5 (31.0-37.0) g/dL RDW 14.8 (11.5-15.5) % Plt Count 158 (150-450) k/uL Neutrophils % 66 % Lymphocytes % 19 % Monocytes % 11 % Eosinophils % 1 % Basophils % 0 % Neutrophils # 6.3 (1.3-7.7) k/uL Lymphocytes # 1.9 (1.0-4.8) k/uL Monocytes # 1.0 (0-1.0) k/uL Eosinophils # 0.1 (0-0.7) k/uL Basophils # 0.0 (0-0.2) k/uL Sodium 137 (137-145) mmol/L Potassium 4.6 (3.5-5.1) mmol/L Chloride 102 (98-107) mmol/L Carbon Dioxide 28 (22-30) mmol/L Anion Gap 7 mmol/L BUN 13 (7-17) mg/dL Creatinine 0.72 (0.52-1.04) mg/dL Est GFR (CKD-EPI)AfAm >90 (>60 ml/min/1.73 sqM) Est GFR (CKD-EPI)NonAf 90 (>60 ml/min/1.73 sqM) Glucose 109 H (74-99) mg/dL Calcium 9.7 (8.4-10.2) mg/dL Magnesium 1.5 L (1.6-2.3) mg/dL Total Bilirubin 0.3 (0.2-1.3) mg/dL AST 21 (14-36) U/L ALT 20 (9-52) U/L Alkaline Phosphatase 78 (38-126) U/L Total Protein 6.6 (6.3-8.2) g/dL Albumin 3.7 (3.5-5.0) g/dL Urine Color Yellow Urine Appearance Cloudy H (Clear) Urine pH 7.5 (5.0-8.0) Ur Specific [place] 1.013 (1.001-1.035) Urine Protein 2+ H (Negative) Urine Glucose (UA) Negative (Negative) Urine Ketones Negative (Negative) Urine Blood Trace H (Negative) Urine Nitrite Negative (Negative) Urine Bilirubin Negative (Negative) Urine Urobilinogen <2.0 (<2.0) mg/dL Ur Leukocyte Esterase Large H (Negative) Urine WBC >182 H (0-5) /hpf Urine WBC Clumps Many H (None) /hpf Ur Squamous Epith Cells 2 (0-4) /hpf Urine Mucus Occasional H (None) /hpf Disposition Clinical Impression: Cancer associated pain, Hypomagnesemia Disposition: ADMITTED IP TO THIS HOSP Is patient prescribed a controlled substance at d/c from ED?: No Referrals: Kevin Metzger MD [Primary Care Provider] - 1-2 days Decision Time: 20:12
[2018-02-21 18:47] LABS: ALT 20 U/L (9-52); AST 21 U/L (14-36); Albumin 3.7 g/dL (3.5-5.0); Alkaline Phosphatase 78 U/L (38-126); Anion Gap 7 mmol/L; Blood Urea Nitrogen 13 mg/dL (7-17); Calcium 9.7 mg/dL (8.4-10.2); Carbon Dioxide 28 mmol/L (22-30); Chloride 102 mmol/L (98-107); Glucose 109 mg/dL (74-99); Magnesium 1.5 mg/dL (1.6-2.3); Potassium 4.6 mmol/L (3.5-5.1); Sodium 137 mmol/L (137-145); Total Bilirubin 0.3 mg/dL (0.2-1.3); Total Protein 6.6 g/dL (6.3-8.2)
[2018-02-21 18:51] LABS: Basophils % (A) 0 %; Eosinophils # (A) 0.1 k/uL (0-0.7); Eosinophils % (A) 1 %; HCT 31.7 % (34.0-46.0); HGB 10.6 gm/dL (11.4-16.0); Lymphocytes # (A) 1.9 k/uL (1.0-4.8); Lymphocytes % (A) 19 %; MCHC 33.5 g/dL (31.0-37.0); MCV 95.5 fL (80.0-100.0); Mean Platelet Volume 8.2; Monocytes % (A) 11 %; Neutrophils # (A) 6.3 k/uL (1.3-7.7); Neutrophils % (A) 66 %; Platelet Count 158 k/uL (150-450); RBC 3.32 m/uL (3.80-5.40); RDW 14.8 % (11.5-15.5); WBC 9.6 k/uL (3.8-10.6)
[2018-02-21] MEDS ORDERED: MAGNESIUM SULFATE-D5W PMX 1 GM in DEXTROSE/WATER 1 100ML.BAG IVPB ONE (19:20)
[2018-02-21] MEDS ORDERED: MAGNESIUM OXIDE 400 MG TAB PO STA (19:28)
[2018-02-21 19:58] LABS: Appearance,Urine Cloudy (Clear); Bilirubin,Urine Negative (Negative); Blood,Urine Trace (Negative); Color,Urine Yellow; Glucose,Urine (UA) Negative (Negative); Ketones,Urine Negative (Negative); Leukocyte Esterase,Urine Large (Negative); Mucus,Urine Occasional /hpf; Nitrite,Urine Negative (Negative); PH, Urine 7.5 (5.0-8.0); Protein,Urine 2+ (Negative); Specific Gravity,Urine 1.013 (1.001-1.035); Squamous Epithelial Cell,Urine 2 /hpf (0-4); Urobilinogen,Urine <2.0 mg/dL (<2.0); WBC,Urine >182 /hpf (0-5)
[2018-02-21] MEDS ORDERED: NALOXONE 0.4 MG/ML 1 ML VIAL IV PRN (20:12)
[2018-02-21] MEDS ORDERED: HYDROmorphone 1 MG/ML 1 ML SYRINGE IVP PRN (20:12)
[2018-02-21] MEDS ORDERED: ACETAMINOPHEN TAB 325 MG TAB PO PRN (20:12)
[2018-02-21] MEDS ORDERED: ONDANSETRON 4 MG/2 ML VIAL IVP STA (20:27)
[2018-02-21] MEDS: SODIUM CHLORIDE 0.9% 1,000 ML IV SCH (20:40)
[2018-02-21] MEDS: HYDROmorphone 1 MG/ML 1 ML SYRINGE IVP PRN (23:42)
[2018-02-22 01:04] VITALS: BMI 20.9
[2018-02-22] MEDS: HYDROmorphone 1 MG/ML 1 ML SYRINGE IVP PRN ×6 (02:21→20:55)
[2018-02-22] MEDS: ONDANSETRON 4 MG/2 ML VIAL IVP PRN ×5 (02:21→19:24)
[2018-02-22] MEDS ORDERED: ONDANSETRON 4 MG TAB PO PRN (09:10)
[2018-02-22] MEDS ORDERED: ALPRAZolam 0.25 MG TAB PO PRN (09:10)
[2018-02-22] MEDS ORDERED: HYDROcodone/APAP 5-325MG 1 EACH TAB PO PRN (09:10)
[2018-02-22 09:12] LABS: ALT 19 U/L (9-52); AST 18 U/L (14-36); Alkaline Phosphatase 62 U/L (38-126); Anion Gap 8 mmol/L; Blood Urea Nitrogen 12 mg/dL (7-17); Calcium 9.4 mg/dL (8.4-10.2); Carbon Dioxide 25 mmol/L (22-30); Chloride 103 mmol/L (98-107); Glucose 121 mg/dL (74-99); Magnesium 1.6 mg/dL (1.6-2.3); Sodium 136 mmol/L (137-145); Total Bilirubin 0.2 mg/dL (0.2-1.3); Total Protein 5.5 g/dL (6.3-8.2)
[2018-02-22 09:34] LABS: Basophils # (A) 0.1 k/uL (0-0.2); Basophils % (A) 1 %; Eosinophils # (A) 0.1 k/uL (0-0.7); Eosinophils % (A) 1 %; HCT 27.5 % (34.0-46.0); HGB 9.5 gm/dL (11.4-16.0); Lymphocytes # (A) 1.9 k/uL (1.0-4.8); Lymphocytes % (A) 17 %; MCH 32.7 pg (25.0-35.0); MCHC 34.6 g/dL (31.0-37.0); MCV 94.3 fL (80.0-100.0); Monocytes # (A) 0.8 k/uL (0-1.0); Monocytes % (A) 7 %; Neutrophils # (A) 7.7 k/uL (1.3-7.7); Neutrophils % (A) 71 %; Platelet Count 148 k/uL (150-450); RBC 2.92 m/uL (3.80-5.40); RDW 14.8 % (11.5-15.5); WBC 10.8 k/uL (3.8-10.6)
[2018-02-22] MEDS: ESCITALOPRAM 10 MG TAB PO SCH (10:06)
[2018-02-22] MEDS: DILTIAZEM CD 120 MG CAP.ER.24H PO SCH (10:06)
[2018-02-22] MEDS: MAGNESIUM SULFATE-D5W PMX 1 GM in DEXTROSE/WATER 1 100ML.BAG IVPB SCH ×2 (13:00→14:06)
[2018-02-22] MEDS: GABAPENTIN 300 MG CAP PO SCH ×2 (15:12→22:22)
--- NOTE | 2018-02-22 15:18 | P.HPIM ---
History of Present Illness 62-year-old came in with the abdominal cramping found to have hypomagnesemia subsequent was admitted. Patient is comparing of nausea probably due to gastritis and patient is comparing of generalized weakness because of which I' ll obtain PT and OT consultation probably will be discharged tomorrow. Patient denied any fever chills nausea vomiting patient does have history of colon cancer is on chemotherapy left with last cycle of chemotherapy. Review of Systems REVIEW OF SYSTEMS: CONSTITUTIONAL: No fever, no malaise, no fatigue. HEENT: No recent visual problems or hearing problems. Denied any sore throat. CARDIOVASCULAR: No chest pain, orthopnea, PND, no palpitations, no syncope. PULMONARY: No shortness of breath, no cough, no hemoptysis. GASTROINTESTINAL: No diarrhea, no vomiting, no abdominal pain. Normoactive bowel sounds. NEUROLOGICAL: No headaches, no weakness, no numbness. HEMATOLOGICAL: Denies any bleeding or petechiae. GENITOURINARY: Denies any burning micturition, frequency, or urgency. MUSCULOSKELETAL/RHEUMATOLOGICAL: Denies any joint pain, swelling, or any muscle pain. ENDOCRINE: Denies any polyuria or polydipsia. The rest of the 14-point review of systems is negative. Past Medical History Past Medical History: Coronary Artery Disease (CAD), Cancer, Deep Vein Thrombosis (DVT), GERD/Reflux Additional Past Medical History / Comment(s): 2006 Ovarian cancer with surgery/ chemo, reoccurrance ovarian cancer 08/2017 with abdominal mets and receiving chemo(per pt had tx tue1- and wed 02/14-),pt stated they also "found cancer in stomach and bowel", recently hospitalized with UTI/partial small bowel obstruction/ureteral obstruction, anemia, past UTIs, R leg DVT 2014, bilateral TMJ with surgery/pins, partial bowel obstruction, kidney stones, hydronephrosis. History of Any Multi-Drug Resistant Organisms: VRE Date of last positivie culture/infection: 01/26/18 MDRO Source:: urine Past Surgical History: Adenoidectomy, Appendectomy, Cholecystectomy, Heart Catheterization With Stent, Hysterectomy, Tonsillectomy Additional Past Surgical History / Comment(s): ovarian cancer with bilateral oopherectomy/hysterectomy 2005; 2 open exploratory abdominal surgery, R chest mediport placed 2011, bilateral retrograde pyelogram cystoscopy with R ureter stent, jaws have pins d/t surgery for TMJ, colonoscopy Past Anesthesia/Blood Transfusion Reactions: No Reported Reaction Additional Past Anesthesia/Blood Transfusion Reaction / Comment(s): Pt has received blood in past without reaction. Date of Last Stent Placement:: 2011 Past Psychological History: Anxiety, Depression Additional Psychological History / Comment(s): Pt resides with her friend and they have a dog. She has a walker but has not been using it. She choses to no longer drive, her friend takes her to [facility]. She has home care twice a week. end of february patient is moving to assisted living facility near [place] closer to family Smoking Status: Never smoker Past Alcohol Use History: None Reported Additional Past Alcohol Use History / Comment(s): Patient is been a lifelong nonsmoker. She lives at home with her friend and a dog. Past Drug Use History: None Reported - Past Family History Mother Family Medical History: Diabetes Mellitus, Dialysis Brother(s) Family Medical History: Cancer Additional Family Medical History / Comment(s): lung cancer- since passed Sister(s) Family Medical History: CVA/TIA Father Family Medical History: Dementia, Neurologic Disorder Additional Family Medical History / Comment(s): alzheimers Medications and Allergies Home Medications Medication Instructions Recorded Confirmed Type ALPRAZolam [Xanax] 0.25 mg PO HS PRN 08/25/14 02/21/18 History Diltiazem HCl [Diltiazem 24Hr ER] 120 mg PO DAILY 08/25/14 02/21/18 History Polyethylene Glycol 3350 [Miralax] 17 gm PO BID PRN 10/05/17 02/21/18 History Gabapentin [Neurontin] 300 mg PO TID 10/17/17 02/21/18 History Acetaminophen Tab [Tylenol] 325 mg PO Q4H PRN 12/21/17 02/21/18 History Escitalopram [Lexapro] 10 mg PO DAILY 12/21/17 02/21/18 History Ferrous Sulfate [Iron (65 MG 325 mg PO DAILY 12/21/17 02/21/18 History Elemental)] Hydrocodone/Acetaminophen [[place] 1 tab PO Q4HR PRN 12/21/17 02/21/18 History 5-325] Magnesium Hydroxide [Milk of 2,400 mg PO DAILY PRN 12/21/17 02/21/18 History Magnesia] Ondansetron HCl [Zofran] 8 mg PO Q6H PRN 12/21/17 02/21/18 History cloNIDine HCL [Catapres] 0.1 mg PO DAILY 12/21/17 02/21/18 History Pantoprazole [Protonix] 40 mg PO PRETTY-MICHAELFST #30 tablet. 01/15/18 02/21/18 Rx traZODone HCL [Desyrel] 100 mg PO HS #30 tab 02/05/18 02/21/18 Rx fentaNYL 25MCG/HR PATCH [Duragesic 1 patch TRANSDERM Q72H PRN 02/12/18 02/21/18 History 25MCG/HR] hydrALAZINE HCL [Apresoline] 50 mg PO DAILY 02/19/18 02/21/18 History hydrALAZINE HCL [Apresoline] 50 mg PO DAILY PRN 02/19/18 02/21/18 History Allergies Allergy/AdvReac Type Severity Reaction Status Date / Time adhesive Allergy Rash/Hives Verified 02/21/18 18:01 carboplatin Allergy Anaphylaxis Verified 02/21/18 18:01 iodine Allergy Rash/Hives Verified 02/21/18 18:01 Penicillins Allergy Rash/Hives Verified 02/21/18 18:01 codeine AdvReac Nausea & Verified 02/21/18 18:01 Vomiting morphine AdvReac Nausea & Verified 02/21/18 18:01 Vomiting Physical Exam Vitals: Vital Signs Temp Pulse Pulse Pulse Resp BP BP 02/22/18 15:00 95 16 153/85 02/22/18 12:10 98.1 F 89 16 158/87 02/22/18 07:25 99.3 F 75 16 145/86 02/22/18 00:54 98.3 F 71 16 146/69 02/22/18 00:19 69 20 136/60 02/21/18 20:43 99.3 F 81 20 126/60 02/21/18 18:46 88 02/21/18 18:45 77 18 133/80 02/21/18 17:42 99.2 F 90 20 131/83 Pulse Ox 02/22/18 15:00 96 02/22/18 12:10 99 02/22/18 07:25 96 02/22/18 00:54 97 02/22/18 00:19 98 02/21/18 20:43 95 02/21/18 18:46 02/21/18 18:45 99 02/21/18 17:42 98 Intake and Output 02/22/18 02/22/18 02/22/18 06:59 14:59 22:59 Intake Total 800 Balance 800 Intake: Amount of Fluid Infused ( 800 ml) Other: Voiding Method Toilet # Voids 1 1 # Bowel Movements 1 Weight 58.967 kg PHYSICAL EXAMINATION: GENERAL: The patient is alert and oriented x3, not in any acute distress. Well developed, well nourished. HEENT: Pupils are round and equally reacting to light. EOMI. No scleral icterus. No conjunctival pallor. Normocephalic, atraumatic. No pharyngeal erythema. No thyromegaly. CARDIOVASCULAR: S1 and S2 present. No murmurs, rubs, or gallops. PULMONARY: Chest is clear to auscultation, no wheezing or crackles. ABDOMEN: Soft, nontender, nondistended, normoactive bowel sounds. No palpable organomegaly. MUSCULOSKELETAL: No joint swelling or deformity. EXTREMITIES: No cyanosis, clubbing, or pedal edema. NEUROLOGICAL: Gross neurological examination did not reveal any focal deficits. SKIN: No rashes. Results CBC & Chem 7: 02/22/18 08:46 02/22/18 08:46 Labs: Abnormal Lab Results - Last 24 Hours (Table) 02/21/18 02/21/18 02/21/18 Range/Units 18:10 18:10 19:40 WBC (3.8-10.6) k/uL RBC 3.32 L (3.80-5.40) m/uL Hgb 10.6 L (11.4-16.0) gm/dL Hct 31.7 L (34.0-46.0) % Plt Count (150-450) k/uL Sodium (137-145) mmol/L Glucose 109 H (74-99) mg/dL Magnesium 1.5 L (1.6-2.3) mg/dL Total Protein (6.3-8.2) g/dL Albumin (3.5-5.0) g/dL Urine Appearance Cloudy H (Clear) Urine Protein 2+ H (Negative) Urine Blood Trace H (Negative) Ur Leukocyte Esterase Large H (Negative) Urine WBC >182 H (0-5) /hpf Urine WBC Clumps Many H (None) /hpf Urine Mucus Occasional H (None) /hpf 02/22/18 02/22/18 Range/Units 08:46 08:46 WBC 10.8 H (3.8-10.6) k/uL RBC 2.92 L (3.80-5.40) m/uL Hgb 9.5 L (11.4-16.0) gm/dL Hct 27.5 L (34.0-46.0) % Plt Count 148 L (150-450) k/uL Sodium 136 L (137-145) mmol/L Glucose 121 H (74-99) mg/dL Magnesium (1.6-2.3) mg/dL Total Protein 5.5 L (6.3-8.2) g/dL Albumin 3.0 L (3.5-5.0) g/dL Urine Appearance (Clear) Urine Protein (Negative) Urine Blood (Negative) Ur Leukocyte Esterase (Negative) Urine WBC (0-5) /hpf Urine WBC Clumps (None) /hpf Urine Mucus (None) /hpf Thrombosis Risk Factor Assmnt - Choose All That Apply Any of the Below Risk Factors Present?: No Other Risk Factors: Yes Each Risk Factor Represents 2 Points: Age 61-74 years Each Risk Factor Represents 3 Points: History of DVT/PE Other congenital or acquired thrombophilia - If yes, enter type in comment: No Thrombosis Risk Factor Assessment Total Risk Factor Score: 5 Thrombosis Risk Factor Assessment Level: High Risk Assessment and Plan Plan: -Nausea probably due to gastritis patient will be started on for down from her current monitor her today possibility of discharge tomorrow -Hypomagnesemia magnesium will be supplemented patient may need supplementation at home as well. Unsure the exact etiology can be related to chemotherapy and therapy -Generalized weakness PT and OT consultation secondary to colon cancer itself. -Coronary artery disease -Gastro-surgery reflux disease -Ovarian cancer on chemotherapy
--- NOTE | 2018-02-22 16:45 | P.CONS ---
History of Present Illness - Reason for Consult Consult date: 02/22/18 ovarian cancer, treated by Dr. Hurtado Requesting physician: Jarek Velasquez - Chief Complaint low magnesium, nausea Review of Systems 14 point ROS as stated in HPI Past Medical History Past Medical History: Coronary Artery Disease (CAD), Cancer, Deep Vein Thrombosis (DVT), GERD/Reflux Additional Past Medical History / Comment(s): 2006 Ovarian cancer with surgery/ chemo, reoccurrance ovarian cancer 08/2017 with abdominal mets and receiving chemo(per pt had tx tue1 and wed ),pt stated they also "found cancer in stomach and bowel", recently hospitalized with UTI/partial small bowel obstruction/ureteral obstruction, anemia, past UTIs, R leg DVT 2014, bilateral TMJ with surgery/pins, partial bowel obstruction, kidney stones, hydronephrosis. History of Any Multi-Drug Resistant Organisms: VRE Year Discovered:: 01/26/18 MDRO Source:: urine Past Surgical History: Adenoidectomy, Appendectomy, Cholecystectomy, Heart Catheterization With Stent, Hysterectomy, Tonsillectomy Additional Past Surgical History / Comment(s): ovarian cancer with bilateral oopherectomy/hysterectomy 2005; 2 open exploratory abdominal surgery, R chest mediport placed 2011, bilateral retrograde pyelogram cystoscopy with R ureter stent, jaws have pins d/t surgery for TMJ, colonoscopy Past Anesthesia/Blood Transfusion Reactions: No Reported Reaction Additional Past Anesthesia/Blood Transfusion Reaction / Comm: Pt has received blood in past without reaction. Date of Last Stent Placement:: 2011 Past Psychological History: Anxiety, Depression Additional Psychological History / Comment(s): Pt resides with her friend and they have a dog. She has a walker but has not been using it. She choses to no longer drive, her friend takes her to [email or web address]. She has home care twice a week. end of february patient is moving to assisted living facility near [place] closer to family Smoking Status: Never smoker Past Alcohol Use History: None Reported Additional Past Alcohol Use History / Comment(s): Patient is been a lifelong nonsmoker. She lives at home with her friend and a dog. Past Drug Use History: None Reported - Past Family History Mother Family Medical History: Diabetes Mellitus, Dialysis Brother(s) Family Medical History: Cancer Additional Family Medical History / Comment(s): lung cancer- since passed Sister(s) Family Medical History: CVA/TIA Father Family Medical History: Dementia, Neurologic Disorder Additional Family Medical History / Comment(s): alzheimers Medications and Allergies Home Medications Medication Instructions Recorded Confirmed Type ALPRAZolam [Xanax] 0.25 mg PO HS PRN 08/25/14 02/21/18 History Diltiazem HCl [Diltiazem 24Hr ER] 120 mg PO DAILY 08/25/14 02/21/18 History Polyethylene Glycol 3350 [Miralax] 17 gm PO BID PRN 10/05/17 02/21/18 History Gabapentin [Neurontin] 300 mg PO TID 10/17/17 02/21/18 History Acetaminophen Tab [Tylenol] 325 mg PO Q4H PRN 12/21/17 02/21/18 History Escitalopram [Lexapro] 10 mg PO DAILY 12/21/17 02/21/18 History Ferrous Sulfate [Iron (65 MG 325 mg PO DAILY 12/21/17 02/21/18 History Elemental)] Hydrocodone/Acetaminophen [[place] 1 tab PO Q4HR PRN 12/21/17 02/21/18 History 5-325] Magnesium Hydroxide [Milk of 2,400 mg PO DAILY PRN 12/21/17 02/21/18 History Magnesia] Ondansetron HCl [Zofran] 8 mg PO Q6H PRN 12/21/17 02/21/18 History cloNIDine HCL [Catapres] 0.1 mg PO DAILY 12/21/17 02/21/18 History Pantoprazole [Protonix] 40 mg PO PRETTY-MARY #30 tablet. 01/15/18 02/21/18 Rx traZODone HCL [Desyrel] 100 mg PO HS #30 tab 02/05/18 02/21/18 Rx fentaNYL 25MCG/HR PATCH [Duragesic 1 patch TRANSDERM Q72H PRN 02/12/18 02/21/18 History 25MCG/HR] hydrALAZINE HCL [Apresoline] 50 mg PO DAILY 02/19/18 02/21/18 History hydrALAZINE HCL [Apresoline] 50 mg PO DAILY PRN 02/19/18 02/21/18 History Allergies Allergy/AdvReac Type Severity Reaction Status Date / Time adhesive Allergy Rash/Hives Verified 02/21/18 18:01 carboplatin Allergy Anaphylaxis Verified 02/21/18 18:01 iodine Allergy Rash/Hives Verified 02/21/18 18:01 Penicillins Allergy Rash/Hives Verified 02/21/18 18:01 codeine AdvReac Nausea & Verified 02/21/18 18:01 Vomiting morphine AdvReac Nausea & Verified 02/21/18 18:01 Vomiting Physical Exam Vitals: Vital Signs Temp Pulse Pulse Pulse Resp BP BP 02/22/18 15:22 98.8 F 02/22/18 15:00 95 16 153/85 02/22/18 12:10 98.1 F 89 16 158/87 02/22/18 07:25 99.3 F 75 16 145/86 02/22/18 00:54 98.3 F 71 16 146/69 02/22/18 00:19 69 20 136/60 02/21/18 20:43 99.3 F 81 20 126/60 02/21/18 18:46 88 02/21/18 18:45 77 18 133/80 02/21/18 17:42 99.2 F 90 20 131/83 Pulse Ox 02/22/18 15:22 02/22/18 15:00 96 02/22/18 12:10 99 02/22/18 07:25 96 02/22/18 00:54 97 02/22/18 00:19 98 02/21/18 20:43 95 02/21/18 18:46 02/21/18 18:45 99 02/21/18 17:42 98 Intake and Output 02/22/18 02/22/18 02/22/18 06:59 14:59 22:59 Intake Total 800 Balance 800 Intake: Amount of Fluid Infused ( 800 ml) Other: Voiding Method Toilet # Voids 1 1 # Bowel Movements 1 Weight 58.967 kg - Constitutional General appearance: average body habitus, disheveled, mild distress - EENT Eyes: anicteric sclerae, EOMI, normal appearance ENT: hearing grossly normal, normal oropharynx - Neck Neck: no lymphadenopathy - Respiratory Respiratory: bilateral: CTA - Cardiovascular Rhythm: regular Heart sounds: normal: S1, S2 Abnormal Heart Sounds: no systolic murmur, no diastolic murmur, no rub, no S3 Gallop, no S4 Gallop, no click, no other leg Peripheral Edema: bilateral: None - Gastrointestinal General gastrointestinal: no absent bowel sounds, no decreased bowel sounds, no distended, no hepatomegaly, no hyperactive bowel sounds, normal bowel sounds, no organomegaly, no rigid, no scaphoid, soft, no splenomegaly, no tenderness, no umbilical hernia, no ventral hernia - Integumentary Integumentary: pale - Neurologic Neurologic: CNII-XII intact - Musculoskeletal Musculoskeletal: generalized weakness, strength equal bilaterally - Psychiatric pt is anxious and tearful Psychiatric: A&O x's 3, intact judgment & insight Results CBC & Chem 7: 02/22/18 08:46 02/22/18 08:46 Labs: Abnormal Lab Results - Last 24 Hours (Table) 02/21/18 02/21/18 02/21/18 Range/Units 18:10 18:10 19:40 WBC (3.8-10.6) k/uL RBC 3.32 L (3.80-5.40) m/uL Hgb 10.6 L (11.4-16.0) gm/dL Hct 31.7 L (34.0-46.0) % Plt Count (150-450) k/uL Sodium (137-145) mmol/L Glucose 109 H (74-99) mg/dL Magnesium 1.5 L (1.6-2.3) mg/dL Total Protein (6.3-8.2) g/dL Albumin (3.5-5.0) g/dL Urine Appearance Cloudy H (Clear) Urine Protein 2+ H (Negative) Urine Blood Trace H (Negative) Ur Leukocyte Esterase Large H (Negative) Urine WBC >182 H (0-5) /hpf Urine WBC Clumps Many H (None) /hpf Urine Mucus Occasional H (None) /hpf 02/22/18 02/22/18 Range/Units 08:46 08:46 WBC 10.8 H (3.8-10.6) k/uL RBC 2.92 L (3.80-5.40) m/uL Hgb 9.5 L (11.4-16.0) gm/dL Hct 27.5 L (34.0-46.0) % Plt Count 148 L (150-450) k/uL Sodium 136 L (137-145) mmol/L Glucose 121 H (74-99) mg/dL Magnesium (1.6-2.3) mg/dL Total Protein 5.5 L (6.3-8.2) g/dL Albumin 3.0 L (3.5-5.0) g/dL Urine Appearance (Clear) Urine Protein (Negative) Urine Blood (Negative) Ur Leukocyte Esterase (Negative) Urine WBC (0-5) /hpf Urine WBC Clumps (None) /hpf Urine Mucus (None) /hpf Assessment and Plan (1) UTI (urinary tract infection) Narrative/Plan: Suspect what is causing pt symptoms, she is receiving abx per Medicine Current Visit: Yes Status: Acute Priority: High Code(s): N39.0 - URINARY TRACT INFECTION, SITE NOT SPECIFIED SNOMED Code(s): 27336156 (2) Nausea Narrative/Plan: Suspect r/t UTI. Antiemetic frequency adjusted for pt comfort Current Visit: Yes Status: Acute Priority: High Code(s): R11.0 - NAUSEA SNOMED Code(s): 493872056 (3) Ovarian cancer Narrative/Plan: Pt had treatment with carbo/taxol last week, 5/6 planned cycles. Mirza will be in the next 3-5 days. Monitor CBC while inpatient. Pt will f/u with Dr. Hurtado as scheduled Current Visit: No Status: Chronic Priority: Medium Code(s): C56.9 - MALIGNANT NEOPLASM OF UNSPECIFIED OVARY SNOMED Code(s): 461564180 (4) Antineoplastic chemotherapy induced anemia Narrative/Plan: Normocytic anemia. CBC daily, conservative transfusion for Hgb<7 or if symptomatic. No acute intervention, after chart review noted that no work up has been done, will order iron studies at this time Current Visit: Yes Status: Acute Priority: Medium Code(s): D64.81 - ANEMIA DUE TO ANTINEOPLASTIC CHEMOTHERAPY; T45.1X5A - ADVERSE EFFECT OF ANTINEOPLASTIC AND IMMUNOSUP DRUGS, INIT SNOMED Code(s): 000602453
[2018-02-22] MEDS: ACETAMINOPHEN TAB 325 MG TAB PO PRN (20:23)
[2018-02-22] MEDS: SODIUM CHLORIDE 0.9% 1,000 ML IV SCH (20:33)
[2018-02-23] MEDS: HYDROmorphone 1 MG/ML 1 ML SYRINGE IVP PRN ×2 (00:11→09:21)
[2018-02-23 03:15] LABS: Iron Saturation 25.82 (12.00-45.00)
[2018-02-23] MEDS: ACETAMINOPHEN TAB 325 MG TAB PO PRN (03:43)
[2018-02-23] MEDS: GABAPENTIN 300 MG CAP PO SCH (08:30)
[2018-02-23] MEDS: DILTIAZEM CD 120 MG CAP.ER.24H PO SCH (08:30)
[2018-02-23] MEDS: ESCITALOPRAM 10 MG TAB PO SCH (08:30)
[2018-02-23] MEDS ORDERED: FERROUS SULFATE 325 MG TAB PO SCH (09:00)
[2018-02-23] MEDS: ONDANSETRON 4 MG/2 ML VIAL IVP PRN (09:21)
[2018-02-23 13:23] VITALS: RESP 16
[2018-02-23 13:28] VITALS: BP 151/85; PULSE 85; TEMP 97.7
--- NOTE | 2018-02-23 15:35 | P.DS ---
Providers Date of admission: 02/21/18 20:12 Attending physician: Evelina Bone Consults: 02/21/18 20:13 Consult Physician Urgent Consulting Provider: Eugene Verdin Consult Reason/Comments: Oncological Do you want consulting provider notified?: Yes Primary care physician: Kevin Metzger Hospital Course: No overnight events patient is clinically doing well hypomagnesemia is corrected , patient takes magnesium at home patient will be discharged today area patient will be discharged on 3 days of Ceftin, in spite of my low suspicion of her urinary tract infection because of her chemotherapy numerous of restricted with asymptomatic bacteriuria PHYSICAL EXAMINATION: GENERAL: The patient is alert and oriented x3, not in any acute distress. Well developed, well nourished. HEENT: Pupils are round and equally reacting to light. EOMI. No scleral icterus. No conjunctival pallor. Normocephalic, atraumatic. No pharyngeal erythema. No thyromegaly. CARDIOVASCULAR: S1 and S2 present. No murmurs, rubs, or gallops. PULMONARY: Chest is clear to auscultation, no wheezing or crackles. ABDOMEN: Soft, nontender, nondistended, normoactive bowel sounds. No palpable organomegaly. MUSCULOSKELETAL: No joint swelling or deformity. EXTREMITIES: No cyanosis, clubbing, or pedal edema. NEUROLOGICAL: Gross neurological examination did not reveal any focal deficits. SKIN: No rashes. Assessment and Plan Plan: -Nausea probably due to gastritis -Hypomagnesemia magnesium was supplemented -Generalized weakness secondary to colon cancer itself. -Coronary artery disease -Gastro-surgery reflux disease -Ovarian cancer on chemotherapy Plan - Discharge Summary Discharge Rx Participant: No New Discharge Prescriptions: New Cefuroxime Axetil [Ceftin] 500 mg PO BID 3 Days #6 tab No Action Diltiazem HCl [Diltiazem 24Hr ER] 120 mg PO DAILY ALPRAZolam [Xanax] 0.25 mg PO HS PRN PRN Reason: Anxiety Polyethylene Glycol 3350 [Miralax] 17 gm PO BID PRN PRN Reason: Constipation Gabapentin [Neurontin] 300 mg PO TID cloNIDine HCL [Catapres] 0.1 mg PO DAILY Escitalopram [Lexapro] 10 mg PO DAILY Ferrous Sulfate [Iron (65 MG Elemental)] 325 mg PO DAILY Hydrocodone/Acetaminophen [[place] 5-325] 1 tab PO Q4HR PRN PRN Reason: Pain Acetaminophen Tab [Tylenol] 325 mg PO Q4H PRN PRN Reason: Pain Ondansetron HCl [Zofran] 8 mg PO Q6H PRN PRN Reason: Nausea Magnesium Hydroxide [Milk of Magnesia] 2,400 mg PO DAILY PRN PRN Reason: Constipation Pantoprazole [Protonix] 40 mg PO AC-BRKFST #30 tablet. traZODone HCL [Desyrel] 100 mg PO HS #30 tab fentaNYL 25MCG/HR PATCH [Duragesic 25MCG/HR] 1 patch TRANSDERM Q72H PRN PRN Reason: Pain hydrALAZINE HCL [Apresoline] 50 mg PO DAILY PRN PRN Reason: HIGH BP hydrALAZINE HCL [Apresoline] 50 mg PO DAILY Discharge Medication List ALPRAZolam [Xanax] 0.25 mg PO HS PRN 08/25/14 [History] Diltiazem HCl [Diltiazem 24Hr ER] 120 mg PO DAILY 08/25/14 [History] Polyethylene Glycol 3350 [Miralax] 17 gm PO BID PRN 10/05/17 [History] Gabapentin [Neurontin] 300 mg PO TID 10/17/17 [History] Acetaminophen Tab [Tylenol] 325 mg PO Q4H PRN 12/21/17 [History] Escitalopram [Lexapro] 10 mg PO DAILY 12/21/17 [History] Ferrous Sulfate [Iron (65 MG Elemental)] 325 mg PO DAILY 12/21/17 [History] Hydrocodone/Acetaminophen [[place] 5-325] 1 tab PO Q4HR PRN 12/21/17 [History] Magnesium Hydroxide [Milk of Magnesia] 2,400 mg PO DAILY PRN 12/21/17 [History] Ondansetron HCl [Zofran] 8 mg PO Q6H PRN 12/21/17 [History] cloNIDine HCL [Catapres] 0.1 mg PO DAILY 12/21/17 [History] Pantoprazole [Protonix] 40 mg PO AC-BRKFST #30 tablet. 01/15/18 [Rx] traZODone HCL [Desyrel] 100 mg PO HS #30 tab 02/05/18 [Rx] fentaNYL 25MCG/HR PATCH [Duragesic 25MCG/HR] 1 patch TRANSDERM Q72H PRN [History] hydrALAZINE HCL [Apresoline] 50 mg PO DAILY 02/19/18 [History] hydrALAZINE HCL [Apresoline] 50 mg PO DAILY PRN 02/19/18 [History] Cefuroxime Axetil [Ceftin] 500 mg PO BID 3 Days #6 tab 02/23/18 [Rx] Follow up Appointment(s)/Referral(s): Kevin Metzger MD [Primary Care Provider] - 03/01/18 9:30 am Activity/Diet/Wound Care/Special Instructions: Follow-up appt made with MD Metzger. Call primary care physician for any change in condition or questions, return to ER for anything emergent. Fluids are encouraged and regular diet can be continued. Activity as tolerated. Discharge Disposition: HOME SELF-CARE
== END 2018-02-23 14:00 | disposition home or self-care (01) ==
LOC: EC 17:24 → 6PED 20:12
PROVIDERS: ADMIT Internal Medicine; ATTEND Internal Medicine
DX: E83.42 Hypomagnesemia (principal); C18.9 Malignant neoplasm of colon, unspecified; Z92.21 Personal history of antineoplastic chemotherapy; K21.9 Gastro-esophageal reflux disease without esophagitis; F32.9 Major depressive disorder, single episode, unspecified; F41.9 Anxiety disorder, unspecified; G89.3 Neoplasm related pain (acute) (chronic); I25.10 Atherosclerotic heart disease of native coronary artery without angina pectoris; C56.9 Malignant neoplasm of unspecified ovary; R53.1 Weakness; C79.89 Secondary malignant neoplasm of other specified sites; D64.81 Anemia due to antineoplastic chemotherapy; T45.1X5A Adverse effect of antineoplastic and immunosuppressive drugs, initial encounter; Z90.710 Acquired absence of both cervix and uterus; Z87.442 Personal history of urinary calculi; Z87.440 Personal history of urinary (tract) infections; Z86.718 Personal history of other venous thrombosis and embolism; Z83.3 Family history of diabetes mellitus; Z82.0 Family history of epilepsy and other diseases of the nervous system; Z80.1 Family history of malignant neoplasm of trachea, bronchus and lung
CPT/HCPCS: 96361 ×3; 96366 ×2; 96367; 96376; 96365; 96375; 99285; 36415; 93005; 97162; 82747; 80053 ×2; 82607; 82728; 83540; 83550; 83735 ×2; 85025 ×2; 81001; G0378 ×3; J2405 ×3; J0696 ×2; J1170 ×3; J3475 ×2

== ENCOUNTER 2018-06-30 04:42 | Inpatient (IN) | payer BC ==
[2018-06-30] MEDS ORDERED: KETOROLAC 30 MG/ML 1 ML VIAL IVP STA (04:57)
[2018-06-30] MEDS ORDERED: SODIUM CHLORIDE 0.9% 1,000 ML IV STA (04:57)
--- NOTE | 2018-06-30 05:01 | ED ---
Abdominal Pain HPI - General Chief Complaint: Abdominal Pain Stated Complaint: Flank Pain Time Seen by Provider: 06/30/18 04:56 Source: patient, family Mode of arrival: ambulatory Limitations: no limitations - History of Present Illness Initial Comments: Is a pleasant 62-year-old female with past medical history most significant for metastatic ovarian cancer which is cause chronic bowel obstructions and ureteral obstructions for which she has a right-sided ureteral stent in place. Patient reports this and has been in place for approximately 2 months. Patient reports that for approximately a week she's been experiencing some dysuria and bladder pressure especially at the end of her stream. She saw her primary care physician who gave her oral antibiotics and took a urine culture. She was advised that the culture is negative for any signs of urinary tract infection but she did take the 7 days of antibiotics. Despite being compliant with antibiotics patient has had persistent urinary discomfort and over the past day has been experiencing worsening right-sided flank pain. Patient has been taking her home medications including Lester with no improvement of the pain which prompted her to come to the ER this morning for evaluation. - Related Data Home Medications Medication Instructions Recorded Confirmed ALPRAZolam [Xanax] 0.25 mg PO HS PRN 08/25/14 06/30/18 Diltiazem HCl [Diltiazem 24Hr ER] 120 mg PO DAILY 08/25/14 06/30/18 Polyethylene Glycol 3350 [Miralax] 17 gm PO BID PRN 10/05/17 06/30/18 Gabapentin [Neurontin] 300 mg PO TID 10/17/17 06/30/18 Acetaminophen Tab [Tylenol] 325 mg PO Q4H PRN 12/21/17 06/30/18 Escitalopram [Lexapro] 10 mg PO DAILY 12/21/17 06/30/18 Ferrous Sulfate [Iron (65 MG 325 mg PO DAILY 12/21/17 06/30/18 Elemental)] Hydrocodone/Acetaminophen [Lester 1 tab PO Q4HR PRN 12/21/17 06/30/18 5-325] Magnesium Hydroxide [Milk of 2,400 mg PO DAILY PRN 12/21/17 06/30/18 Magnesia] Ondansetron HCl [Zofran] 8 mg PO Q6H PRN 12/21/17 06/30/18 cloNIDine HCL [Catapres] 0.1 mg PO DAILY 12/21/17 06/30/18 fentaNYL 25MCG/HR PATCH [Duragesic 1 patch TRANSDERM Q72H PRN 02/12/18 06/30/18 25MCG/HR] hydrALAZINE HCL [Apresoline] 50 mg PO DAILY 02/19/18 06/30/18 hydrALAZINE HCL [Apresoline] 50 mg PO DAILY PRN 02/19/18 06/30/18 Rucaparib Camsylate [Rubraca] 600 mg PO BID 06/30/18 06/30/18 Previous Rx's Medication Instructions Recorded Pantoprazole [Protonix] 40 mg PO AC-BRKFST #30 tablet. 01/15/18 traZODone HCL [Desyrel] 100 mg PO HS #30 tab 02/05/18 Cefuroxime Axetil [Ceftin] 500 mg PO BID 3 Days #6 tab 02/23/18 Allergies Allergy/AdvReac Type Severity Reaction Status Date / Time adhesive Allergy Rash/Hives Verified 06/30/18 04:48 carboplatin Allergy Anaphylaxis Verified 06/30/18 04:48 iodine Allergy Rash/Hives Verified 06/30/18 04:48 Penicillins Allergy Rash/Hives Verified 06/30/18 04:48 codeine AdvReac Nausea & Verified 06/30/18 04:48 Vomiting morphine AdvReac Nausea & Verified 06/30/18 04:48 Vomiting Review of Systems ROS Statement: Those systems with pertinent positive or pertinent negative responses have been documented in the HPI. ROS Other: All systems not noted in ROS Statement are negative. Past Medical History Past Medical History: Coronary Artery Disease (CAD), Cancer, Deep Vein Thrombosis (DVT), GERD/Reflux Additional Past Medical History / Comment(s): 2006 Ovarian cancer with surgery/ chemo, reoccurrance ovarian cancer 08/2017 with abdominal mets and receiving chemo, recurrent admissions for UTI/SBO/Ureteral Obstruction in 2018, R leg DVT 2014, bilateral TMJ with surgery/pins. History of Any Multi-Drug Resistant Organisms: VRE Date of last positivie culture/infection: 01/26/18 MDRO Source:: urine Past Surgical History: Adenoidectomy, Appendectomy, Cholecystectomy, Heart Catheterization With Stent, Hysterectomy, Tonsillectomy Additional Past Surgical History / Comment(s): ovarian cancer with bilateral oopherectomy/hysterectomy 2005; 2 open exploratory abdominal surgery, R chest mediport placed 2011, bilateral retrograde pyelogram cystoscopy with R ureter stent, jaws have pins d/t surgery for TMJ, colonoscopy Past Anesthesia/Blood Transfusion Reactions: No Reported Reaction Additional Past Anesthesia/Blood Transfusion Reaction / Comment(s): Pt has received blood in past without reaction. Date of Last Stent Placement:: 2011 Past Psychological History: Anxiety, Depression Smoking Status: Never smoker Past Alcohol Use History: None Reported Past Drug Use History: None Reported - Past Family History Mother Family Medical History: Diabetes Mellitus, Dialysis Brother(s) Family Medical History: Cancer Additional Family Medical History / Comment(s): lung cancer- since passed Sister(s) Family Medical History: CVA/TIA Father Family Medical History: Dementia, Neurologic Disorder Additional Family Medical History / Comment(s): alzheimers General Exam - General Exam Comments Initial Comments: Physical Exam GENERAL: Chronically ill appearing, chemotherapy patient HENT: Normocephalic, Atraumatic. EYES: PERRL, EOMI PULMONARY: Unlabored respirations. CARDIOVASCULAR: There is a regular rate and rhythm without any murmurs gallops or rubs. ABDOMEN: Soft and nontender with normal bowel sounds. Right flank pain to percussion SKIN: Skin is pale, dry : Deferred NEUROLOGIC: Patient is alert and oriented x3. Moving all extremities spontaneously MUSCULOSKELETAL: Normal extremities with adequate strength and full range of motion. No lower extremity swelling or edema. No calf tenderness. PSYCHIATRIC: Normal psychiatric evaluation. Limitations: no limitations Limitations: no limitations Course Vital Signs 06/30/18 04:43 Temperature 98.2 F Pulse Rate 87 Respiratory 20 Rate Blood Pressure 139/93 O2 Sat by Pulse 99 Oximetry Medical Decision Making - Medical Decision Making The patient was seen and evaluated history was obtained from the patient and review of medical records This is a 62-year-old female with metastatic ovarian cancer, kidney stones and ureteral obstruction with a stent in place presenting with flank pain Labs, urinalysis, Toradol and Dilaudid were ordered Urinalysis with evidence of urinary tract infection culture was ordered and Rocephin ordered X-ray with no signs of bowel obstruction Labs with significant increase in patient's creatinine from baseline concern that this is obstructive in nature a computed tomography scan was ordered to further evaluate CT with inflammation of bladder to kidney - concern for pyelo Patient care discussed with PCP Dr Metzger who agrees with plan for admission with consult to urology - Lab Data Result diagrams: 06/30/18 05:05 06/30/18 05:05 Lab Results 06/30/18 06/30/18 06/30/18 Range/Units 04:55 05:05 05:05 WBC 7.2 (3.8-10.6) k/uL RBC 3.49 L (3.80-5.40) m/uL Hgb 11.9 (11.4-16.0) gm/dL Hct 33.7 L (34.0-46.0) % MCV 96.8 (80.0-100.0) fL MCH 34.0 (25.0-35.0) pg MCHC 35.1 (31.0-37.0) g/dL RDW 14.0 (11.5-15.5) % Plt Count 140 L (150-450) k/uL Neutrophils % 65 % Lymphocytes % 25 % Monocytes % 5 % Eosinophils % 3 % Basophils % 1 % Neutrophils # 4.7 (1.3-7.7) k/uL Lymphocytes # 1.8 (1.0-4.8) k/uL Monocytes # 0.4 (0-1.0) k/uL Eosinophils # 0.2 (0-0.7) k/uL Basophils # 0.0 (0-0.2) k/uL Sodium 140 (137-145) mmol/L Potassium 4.9 (3.5-5.1) mmol/L Chloride 108 H (98-107) mmol/L Carbon Dioxide 24 (22-30) mmol/L Anion Gap 8 mmol/L BUN 29 H (7-17) mg/dL Creatinine 1.25 H (0.52-1.04) mg/dL Est GFR (CKD-EPI)AfAm 53 (>60 ml/min/1.73 sqM) Est GFR (CKD-EPI)NonAf 46 (>60 ml/min/1.73 sqM) Glucose 104 H (74-99) mg/dL Calcium 9.4 (8.4-10.2) mg/dL Magnesium (1.6-2.3) mg/dL Total Bilirubin 0.5 (0.2-1.3) mg/dL AST 39 H (14-36) U/L ALT 30 (9-52) U/L Alkaline Phosphatase 50 (38-126) U/L Total Protein 7.1 (6.3-8.2) g/dL Albumin 4.2 (3.5-5.0) g/dL Lipase 72 (23-300) U/L Urine Color Yellow Urine Appearance Cloudy H (Clear) Urine pH 5.5 (5.0-8.0) Ur Specific [place] 1.016 (1.001-1.035) Urine Protein 2+ H (Negative) Urine Glucose (UA) Negative (Negative) Urine Ketones Negative (Negative) Urine Blood Large H (Negative) Urine Nitrite Negative (Negative) Urine Bilirubin Negative (Negative) Urine Urobilinogen <2.0 (<2.0) mg/dL Ur Leukocyte Esterase Large H (Negative) Urine RBC >182 H (0-5) /hpf Urine WBC >182 H (0-5) /hpf Ur Squamous Epith Cells 1 (0-4) /hpf Urine Mucus Rare H (None) /hpf 06/30/18 Range/Units 05:05 WBC (3.8-10.6) k/uL RBC (3.80-5.40) m/uL Hgb (11.4-16.0) gm/dL Hct (34.0-46.0) % MCV (80.0-100.0) fL MCH (25.0-35.0) pg MCHC (31.0-37.0) g/dL RDW (11.5-15.5) % Plt Count (150-450) k/uL Neutrophils % % Lymphocytes % % Monocytes % % Eosinophils % % Basophils % % Neutrophils # (1.3-7.7) k/uL Lymphocytes # (1.0-4.8) k/uL Monocytes # (0-1.0) k/uL Eosinophils # (0-0.7) k/uL Basophils # (0-0.2) k/uL Sodium (137-145) mmol/L Potassium (3.5-5.1) mmol/L Chloride (98-107) mmol/L Carbon Dioxide (22-30) mmol/L Anion Gap mmol/L BUN (7-17) mg/dL Creatinine (0.52-1.04) mg/dL Est GFR (CKD-EPI)AfAm (>60 ml/min/1.73 sqM) Est GFR (CKD-EPI)NonAf (>60 ml/min/1.73 sqM) Glucose (74-99) mg/dL Calcium (8.4-10.2) mg/dL Magnesium 1.5 L (1.6-2.3) mg/dL Total Bilirubin (0.2-1.3) mg/dL AST (14-36) U/L ALT (9-52) U/L Alkaline Phosphatase (38-126) U/L Total Protein (6.3-8.2) g/dL Albumin (3.5-5.0) g/dL Lipase (23-300) U/L Urine Color Urine Appearance (Clear) Urine pH (5.0-8.0) Ur Specific [place] (1.001-1.035) Urine Protein (Negative) Urine Glucose (UA) (Negative) Urine Ketones (Negative) Urine Blood (Negative) Urine Nitrite (Negative) Urine Bilirubin (Negative) Urine Urobilinogen (<2.0) mg/dL Ur Leukocyte Esterase (Negative) Urine RBC (0-5) /hpf Urine WBC (0-5) /hpf Ur Squamous Epith Cells (0-4) /hpf Urine Mucus (None) /hpf Disposition Clinical Impression: Pyelonephritis, MERON (acute kidney injury) Disposition: ADMITTED IP TO THIS HOSP Condition: Stable Referrals: Kevin Metzger MD [Primary Care Provider] - 1-2 days
[2018-06-30] MEDS ORDERED: HYDROmorphone 1 MG/ML 1 ML SYRINGE IVP STA (05:08)
[2018-06-30 05:26] LABS: Basophils % (A) 1 %; Eosinophils # (A) 0.2 k/uL (0-0.7); Eosinophils % (A) 3 %; HCT 33.7 % (34.0-46.0); HGB 11.9 gm/dL (11.4-16.0); Lymphocytes # (A) 1.8 k/uL (1.0-4.8); Lymphocytes % (A) 25 %; MCHC 35.1 g/dL (31.0-37.0); MCV 96.8 fL (80.0-100.0); Mean Platelet Volume 7.7; Monocytes # (A) 0.4 k/uL (0-1.0); Monocytes % (A) 5 %; Neutrophils # (A) 4.7 k/uL (1.3-7.7); Neutrophils % (A) 65 %; Platelet Count 140 k/uL (150-450); RBC 3.49 m/uL (3.80-5.40); WBC 7.2 k/uL (3.8-10.6)
[2018-06-30 05:35] LABS: Albumin 4.2 g/dL (3.5-5.0); Calcium 9.4 mg/dL (8.4-10.2); Total Bilirubin 0.5 mg/dL (0.2-1.3); Total Protein 7.1 g/dL (6.3-8.2)
[2018-06-30 05:35] LABS: Appearance,Urine Cloudy (Clear); Bilirubin,Urine Negative (Negative); Blood,Urine Large (Negative); Color,Urine Yellow; Glucose,Urine (UA) Negative (Negative); Ketones,Urine Negative (Negative); Leukocyte Esterase,Urine Large (Negative); Mucus,Urine Rare /hpf; Nitrite,Urine Negative (Negative); PH, Urine 5.5 (5.0-8.0); Protein,Urine 2+ (Negative); RBC,Urine >182 /hpf (0-5); Specific Gravity,Urine 1.016 (1.001-1.035); Squamous Epithelial Cell,Urine 1 /hpf (0-4); Urobilinogen,Urine <2.0 mg/dL (<2.0)
[2018-06-30 05:42] LABS: Potassium 4.9 mmol/L (3.5-5.1)
--- NOTE | 2018-06-30 05:44 | XR ---
EXAM: XR Abdomen, 1 View CLINICAL HISTORY: ITS.REASON XR Reason: abdominal pain TECHNIQUE: Frontal supine view of the abdomen/pelvis. COMPARISON: No relevant prior studies available. FINDINGS: Gastrointestinal tract: Unremarkable. No dilation. Bones/joints: Unremarkable. Tubes, lines and devices: Right ureteral stent catheter in place. IMPRESSION: No acute findings.
--- NOTE | 2018-06-30 06:35 | CT ---
EXAM: CT Abdomen and Pelvis Without Intravenous Contrast, Renal Stone Protocol CLINICAL HISTORY: ITS.REASON CT Reason: Pain TECHNIQUE: Axial computed tomography images of the abdomen and pelvis without intravenous contrast using renal stone protocol. CTDI is 7.2 mGy and DLP is 389 mGy-cm. This CT exam was performed using one or more of the following dose reduction techniques: automated exposure control, adjustment of the mA and/or kV according to patient size, and/or use of iterative reconstruction technique. COMPARISON: 02/12/18 FINDINGS: Lower thorax: Unremarkable as visualized. ABDOMEN: Liver: Unremarkable. Gallbladder and bile ducts: Unremarkable. No calcified stones. No ductal dilation. Pancreas: Unremarkable. No ductal dilation. Spleen: Unremarkable. No splenomegaly. Adrenals: Unremarkable. No mass. Right kidney and ureter: Increased right hydronephrosis with respect to the prior scan. Right ureteral stent remains in place. Right perirenal/periureteral fat stranding again seen. No stones are identified. Left kidney and ureter: Unremarkable. No obstructing stones. No hydronephrosis. Stomach and bowel: Unremarkable. No obstruction. No mucosal thickening. PELVIS: Appendix: No findings to suggest acute appendicitis. Bladder: Increased markings around the urinary bladder. No stones. Reproductive: Unremarkable as visualized. ABDOMEN and PELVIS: Intraperitoneal space: Unremarkable. No free air. No significant fluid collection. Bones/joints: Unremarkable. No acute fracture. No dislocation. Soft tissues: Unremarkable. Vasculature: Unremarkable. No abdominal aortic aneurysm. Lymph nodes: Unremarkable. No enlarged lymph nodes. IMPRESSION: Increased markings around the bladder, right kidney, and ureter, possibly indicating infection. Increased right hydronephrosis with respect to the prior scan. Stent remains in place.
[2018-06-30] MEDS ORDERED: NALOXONE 0.4 MG/ML 1 ML VIAL IV PRN (07:13)
[2018-06-30 09:10] VITALS: BMI 23.3
[2018-06-30] MEDS: HYDROmorphone 1 MG/ML 1 ML SYRINGE IVP PRN ×4 (09:48→21:38)
[2018-06-30] MEDS: SODIUM CHLORIDE 0.9% 1,000 ML IV SCH ×2 (09:54→20:13)
--- NOTE | 2018-06-30 11:09 | P.GSCN ---
History of Present Illness Consult date: 06/30/18 Reason for Consult: Hydronephrosis Requesting physician: Kevin Metzger History of present illness: The patient is a 62-year-old white female with ovarian cancer, which has been treated over 10 years. She has a known right pelvic mass. Her oncologist is Dr. Aris Hurtado at [facility]. She was hospitalized in October 2017 with a serum creatinine level of 1.80, up from 0.85. She underwent cystoscopy with bilateral retrograde pyelograms. She was found to have right proximal ureteral obstruction and underwent placement of a right ureteral stent. She has been treated for enterococcus VRE UTIs in October 2017 in January 2018. She denies any prior history of urolithiasis. She experienced right flank pain and was hospitalized in April 2018 at [facility] ; her right ureteral stent was changed at that time. She is now admitted with right flank pain, and pressure at the end of micturition. Review of Systems - Constitutional Denies chills, Denies fever - Gastrointestinal Denies nausea, Denies vomiting - Genitourinary Genitourinary: Reports dysuria, Reports urinary frequency, Denies flank pain, Denies hematuria Past Medical History Past Medical History: Coronary Artery Disease (CAD), Cancer, Deep Vein Thrombosis (DVT), GERD/Reflux Additional Past Medical History / Comment(s): 2006 Ovarian cancer with surgery/ chemo, reoccurrance ovarian cancer 08/2017 with abdominal mets and receiving chemo, recurrent admissions for UTI/SBO/Ureteral Obstruction in 2018, R leg DVT 2014, bilateral TMJ with surgery/pins. History of Any Multi-Drug Resistant Organisms: VRE Year Discovered:: 01/26/18 MDRO Source:: urine Past Surgical History: Adenoidectomy, Appendectomy, Cholecystectomy, Heart Catheterization With Stent, Hysterectomy, Tonsillectomy Additional Past Surgical History / Comment(s): ovarian cancer with bilateral oopherectomy/hysterectomy 2005; 2 open exploratory abdominal surgery, R chest mediport placed 2011, bilateral retrograde pyelogram cystoscopy with R ureter stent, jaws have pins d/t surgery for TMJ, colonoscopy Past Anesthesia/Blood Transfusion Reactions: No Reported Reaction Additional Past Anesthesia/Blood Transfusion Reaction / Comm: Pt has received blood in past without reaction. Date of Last Stent Placement:: 2011 Past Psychological History: Anxiety, Depression Smoking Status: Never smoker Past Alcohol Use History: None Reported Past Drug Use History: None Reported - Past Family History Mother Family Medical History: Diabetes Mellitus, Dialysis Brother(s) Family Medical History: Cancer Additional Family Medical History / Comment(s): lung cancer- since passed Sister(s) Family Medical History: CVA/TIA Father Family Medical History: Dementia, Neurologic Disorder Additional Family Medical History / Comment(s): alzheimers Medications and Allergies Home Medications Medication Instructions Recorded Confirmed Type ALPRAZolam [Xanax] 0.25 mg PO HS PRN 08/25/14 06/30/18 History Diltiazem HCl [Diltiazem 24Hr ER] 120 mg PO DAILY 08/25/14 06/30/18 History Gabapentin [Neurontin] 300 mg PO BID 10/17/17 06/30/18 History Ferrous Sulfate [Iron (65 MG 325 mg PO DAILY 12/21/17 06/30/18 History Elemental)] Ondansetron HCl [Zofran] 8 mg PO Q8H PRN 12/21/17 06/30/18 History Escitalopram [Lexapro] 20 mg PO DAILY 06/30/18 06/30/18 History Rucaparib Camsylate [Rubraca] 600 mg PO BID 06/30/18 06/30/18 History Allergies Allergy/AdvReac Type Severity Reaction Status Date / Time adhesive Allergy Rash/Hives Verified 06/30/18 08:39 carboplatin Allergy Anaphylaxis Verified 06/30/18 08:39 iodine Allergy Rash/Hives Verified 06/30/18 08:39 Penicillins Allergy Rash/Hives Verified 06/30/18 08:39 codeine AdvReac Nausea & Verified 06/30/18 08:39 Vomiting morphine AdvReac Nausea & Verified 06/30/18 08:39 Vomiting Surgical - Exam Vital Signs Temp Pulse Resp BP Pulse Ox 98.2 F 87 20 139/93 99 06/30/18 04:43 06/30/18 04:43 06/30/18 04:43 06/30/18 04:43 06/30/18 04:43 - General well developed, well nourished, no distress - Neck no masses, trachea midline - Respiratory normal respiratory effort - Abdomen Abdomen: soft, tender (Mild right-sided tenderness), no masses, no guarding, no rigid, no rebound, no distended - Psychiatric oriented to time, oriented to person, oriented to place, speech is normal, memory intact Results - Labs 06/30/18 05:05 06/30/18 05:05 Abnormal Lab Results - Last 24 Hours (Table) 06/30/18 06/30/18 06/30/18 Range/Units 04:55 05:05 05:05 RBC 3.49 L (3.80-5.40) m/uL Hct 33.7 L (34.0-46.0) % Plt Count 140 L (150-450) k/uL Chloride 108 H (98-107) mmol/L BUN 29 H (7-17) mg/dL Creatinine 1.25 H (0.52-1.04) mg/dL Glucose 104 H (74-99) mg/dL Magnesium (1.6-2.3) mg/dL AST 39 H (14-36) U/L Urine Appearance Cloudy H (Clear) Urine Protein 2+ H (Negative) Urine Blood Large H (Negative) Ur Leukocyte Esterase Large H (Negative) Urine RBC >182 H (0-5) /hpf Urine WBC >182 H (0-5) /hpf Urine Mucus Rare H (None) /hpf 06/30/18 Range/Units 05:05 RBC (3.80-5.40) m/uL Hct (34.0-46.0) % Plt Count (150-450) k/uL Chloride (98-107) mmol/L BUN (7-17) mg/dL Creatinine (0.52-1.04) mg/dL Glucose (74-99) mg/dL Magnesium 1.5 L (1.6-2.3) mg/dL AST (14-36) U/L Urine Appearance (Clear) Urine Protein (Negative) Urine Blood (Negative) Ur Leukocyte Esterase (Negative) Urine RBC (0-5) /hpf Urine WBC (0-5) /hpf Urine Mucus (None) /hpf Microbiology - Last 24 Hours (Table) 06/30/18 04:55 Urine Culture - Preliminary Urine,Voided Diabetes panel 06/30/18 Range/Units 05:05 Sodium 140 (137-145) mmol/L Potassium 4.9 (3.5-5.1) mmol/L Chloride 108 H (98-107) mmol/L Carbon Dioxide 24 (22-30) mmol/L BUN 29 H (7-17) mg/dL Creatinine 1.25 H (0.52-1.04) mg/dL Glucose 104 H (74-99) mg/dL Calcium 9.4 (8.4-10.2) mg/dL AST 39 H (14-36) U/L ALT 30 (9-52) U/L Alkaline Phosphatase 50 (38-126) U/L Total Protein 7.1 (6.3-8.2) g/dL Albumin 4.2 (3.5-5.0) g/dL Calcium panel 06/30/18 Range/Units 05:05 Calcium 9.4 (8.4-10.2) mg/dL Albumin 4.2 (3.5-5.0) g/dL Pituitary panel 06/30/18 Range/Units 05:05 Sodium 140 (137-145) mmol/L Potassium 4.9 (3.5-5.1) mmol/L Chloride 108 H (98-107) mmol/L Carbon Dioxide 24 (22-30) mmol/L BUN 29 H (7-17) mg/dL Creatinine 1.25 H (0.52-1.04) mg/dL Glucose 104 H (74-99) mg/dL Calcium 9.4 (8.4-10.2) mg/dL Adrenal panel 06/30/18 Range/Units 05:05 Sodium 140 (137-145) mmol/L Potassium 4.9 (3.5-5.1) mmol/L Chloride 108 H (98-107) mmol/L Carbon Dioxide 24 (22-30) mmol/L BUN 29 H (7-17) mg/dL Creatinine 1.25 H (0.52-1.04) mg/dL Glucose 104 H (74-99) mg/dL Calcium 9.4 (8.4-10.2) mg/dL Total Bilirubin 0.5 (0.2-1.3) mg/dL AST 39 H (14-36) U/L ALT 30 (9-52) U/L Alkaline Phosphatase 50 (38-126) U/L Total Protein 7.1 (6.3-8.2) g/dL Albumin 4.2 (3.5-5.0) g/dL - Imaging CT scan - abdomen: report reviewed, image reviewed Assessment and Plan (1) Hydronephrosis Current Visit: No Status: Acute Code(s): N13.30 - UNSPECIFIED HYDRONEPHROSIS SNOMED Code(s): 77026524 Plan: The patient's right ureteral stent appears to be properly positioned, though the CT scan shows persistent right hydronephrosis. Urinalysis is suggestive of a possible UTI. A urine culture is pending. In the meantime, she will continue to receive Rocephin. I have also prescribed Ditropan XL with the hopes that this will improve her symptoms, which may be stent related. Time with Patient: Greater than 30
[2018-06-30] MEDS ORDERED: ALPRAZolam 0.25 MG TAB PO PRN (11:24)
[2018-06-30] MEDS: OXYBUTYNIN XL 5 MG TAB.ER.24 PO SCH (12:58)
--- NOTE | 2018-06-30 14:13 | HP ---
HISTORY AND PHYSICAL CHIEF COMPLAINT: Right side abdominal and right flank pain. HISTORY OF PRESENT ILLNESS: This is another of many admissions for this 62-year-old white female who has metastatic ovarian carcinoma. She has had ureteral obstruction problems in the past and started to have some discomfort in the right side of the abdomen and right flank about a week ago at it suddenly got a lot worse prior to coming into the ER. She does have a stent in the right ureter. When she came in, studies indicated that she had a urinary tract infection and probable pyelonephritis. She has not had any temperature, chills or vomiting. REVIEW OF SYSTEMS: She is otherwise doing well. She is still getting chemotherapy. She has had no hematemesis, melena, hematochezia, jaundice, etc. Past medical history, family history, personal and social history are all otherwise unremarkable and noncontributory and unchanged. PHYSICAL EXAMINATION: Blood pressure 141/80 with a pulse of 86, respirations 24. She is afebrile. In general, she appeared to be slightly pale and somewhat uncomfortable. Head, ears, eyes, nose, mouth, and throat were normal. Chest is clear. Cardiac exam is normal. The abdomen is a little bit tender in the right side. There is a fullness in the upper abdomen as well as both lower quadrants. She was tender in the right flank. Extremities are normal. Neurologically she is intact. IMPRESSION: 1. Pyelonephritis. 2. History of a right ureteral obstructive uropathy with stent. 3. Metastatic ovarian carcinoma. PLAN: 1. Bed rest. 2. IV fluids. 3. Cultures. 4. Antibiotics. 5. Urology consult. MMODL / IJN: [id number] /
[2018-06-30] MEDS: ONDANSETRON 4 MG TAB PO PRN (18:12)
[2018-06-30] MEDS: RUCAPARIB CAMSYLATE PO SCH (20:12)
[2018-06-30] MEDS: HEPARIN SODIUM,PORCINE 5,000 UNIT/ML 1 ML VIAL SQ SCH (20:13)
[2018-06-30] MEDS: GABAPENTIN 300 MG CAP PO SCH (20:13)
[2018-06-30] MEDS: HYDROcodone/APAP 5-325MG 1 EACH TAB PO PRN (20:13)
[2018-07-01] MEDS: HYDROmorphone 1 MG/ML 1 ML SYRINGE IVP PRN ×5 (01:58→23:56)
[2018-07-01] MEDS: SODIUM CHLORIDE 0.9% 1,000 ML IV SCH ×3 (02:00→23:12)
[2018-07-01] MEDS: ONDANSETRON 4 MG TAB PO PRN (07:57)
[2018-07-01] MEDS: RUCAPARIB CAMSYLATE PO SCH ×2 (08:48→20:01)
[2018-07-01] MEDS: FERROUS SULFATE 325 MG TAB PO SCH (08:49)
[2018-07-01] MEDS: HYDROcodone/APAP 5-325MG 1 EACH TAB PO PRN (08:50)
[2018-07-01] MEDS: DILTIAZEM CD 120 MG CAP.ER.24H PO SCH (08:50)
[2018-07-01] MEDS: ESCITALOPRAM 20 MG TAB PO SCH (08:50)
[2018-07-01] MEDS: OXYBUTYNIN XL 5 MG TAB.ER.24 PO SCH ×2 (08:50→20:02)
[2018-07-01] MEDS: GABAPENTIN 300 MG CAP PO SCH ×2 (08:51→20:01)
--- NOTE | 2018-07-01 11:39 | P.PN ---
Progress Note - Text Progress Note Date: 07/01/18 Mrs. Galloway remains afebrile with stable vital signs. She reports mild nausea today. Her urine culture showed normal fatou. It is my impression that she is urologically stable. She was started on oxybutynin chloride ER 5 mg daily, and states that her voiding symptoms are somewhat improved. I intend to increase the dose to 10 mg daily. I do not feel that any urologic intervention is warranted at this time. Her stent was changed in April 2018, and I see no evidence that this is malfunctioning. She states that the urologist did not indicate that there was any difficulty in changing the stent, which was placed in October 2017. In view of this, I have suggested that her current stent be changed in October 2018, unless she experiences problems. I believe that some of her current symptoms are the result of the stent, and hopefully the oxybutynin will help in this matter. Please notify me if I can be of any further assistance.
[2018-07-01] MEDS: HEPARIN SODIUM,PORCINE 5,000 UNIT/ML 1 ML VIAL SQ SCH ×3 (12:50→23:55)
[2018-07-01] MEDS: MAGNESIUM OXIDE 400 MG TAB PO SCH (12:51)
--- NOTE | 2018-07-01 13:14 | PN ---
PROGRESS NOTE CHIEF COMPLAINT: Right-sided pyelonephritis. HISTORY OF PRESENT ILLNESS: This lady is doing fairly well. The pain is improved, but now she is nauseated. She has had no fever, chills, etc. She has been seen by Urology. PHYSICAL EXAM: She remains slightly pale. Chest is clear. Cardiac exam is normal. The abdomen is soft and does not seem to be tender. IMPRESSION: 1. Right sided pyelonephritis. 2. Nausea, etiology unknown. PLAN: Continue with IV fluids and antibiotics and continue to monitor her abdominal findings and nausea. MMODL / IJN: [id number] /
[2018-07-02] MEDS: HYDROcodone/APAP 5-325MG 1 EACH TAB PO PRN ×3 (01:26→21:56)
[2018-07-02] MEDS: RUCAPARIB CAMSYLATE PO SCH ×2 (08:06→20:05)
[2018-07-02] MEDS: HEPARIN SODIUM,PORCINE 5,000 UNIT/ML 1 ML VIAL SQ SCH ×2 (09:14→20:06)
[2018-07-02] MEDS: OXYBUTYNIN XL 5 MG TAB.ER.24 PO SCH ×2 (09:15→20:06)
[2018-07-02] MEDS: ESCITALOPRAM 20 MG TAB PO SCH (09:15)
[2018-07-02] MEDS: DILTIAZEM CD 120 MG CAP.ER.24H PO SCH (09:15)
[2018-07-02] MEDS: GABAPENTIN 300 MG CAP PO SCH ×2 (09:16→20:06)
[2018-07-02] MEDS: FERROUS SULFATE 325 MG TAB PO SCH (09:16)
[2018-07-02] MEDS: MAGNESIUM OXIDE 400 MG TAB PO SCH (09:16)
[2018-07-02] MEDS: CEPHALEXIN 500 MG CAP PO SCH ×3 (14:07→21:57)
[2018-07-02] MEDS: HYDROmorphone 1 MG/ML 1 ML SYRINGE IVP PRN ×3 (14:31→21:11)
[2018-07-02] MEDS: SODIUM CHLORIDE 0.9% 1,000 ML IV SCH (21:16)
[2018-07-03] MEDS: HYDROmorphone 1 MG/ML 1 ML SYRINGE IVP PRN ×3 (00:49→08:23)
--- NOTE | 2018-07-03 06:45 | DS ---
DISCHARGE SUMMARY CHIEF COMPLAINT: Right flank pain and possible pyelonephritis. HISTORY OF PRESENT ILLNESS AND PHYSICAL EXAM: Details of this lady's history and physical can be found in the initial workup. LABORATORY STUDIES: While she was in a hospital she had laboratory studies, details of which can be found in the laboratory section of her chart. COURSE IN HOSPITAL: After admission she was placed on bedrest, started on intravenous fluids and IV antibiotics. She was seen by Urology who felt that her pain may have been more related to the stent than infection. The pain did subside and she is doing well. It was felt she could go home on the . She will be seen in the office in few days. FINAL DIAGNOSES: 1. Right-sided pyelonephritis. 2. Right ureteral obstruction with stent placement. 3. Metastatic carcinoma of the ovary. OPERATIONS: None. CONSULTATIONS: Urology. She is improved. MMODL / IJN: [id number] /
[2018-07-03] MEDS: SODIUM CHLORIDE 0.9% 1,000 ML IV SCH ×2 (07:24→09:16)
[2018-07-03] MEDS: RUCAPARIB CAMSYLATE PO SCH (08:11)
[2018-07-03] MEDS: FERROUS SULFATE 325 MG TAB PO SCH (08:12)
[2018-07-03] MEDS: ESCITALOPRAM 20 MG TAB PO SCH (08:12)
[2018-07-03] MEDS: HEPARIN SODIUM,PORCINE 5,000 UNIT/ML 1 ML VIAL SQ SCH (08:12)
[2018-07-03] MEDS: MAGNESIUM OXIDE 400 MG TAB PO SCH (08:12)
[2018-07-03] MEDS: OXYBUTYNIN XL 5 MG TAB.ER.24 PO SCH (08:12)
[2018-07-03] MEDS: GABAPENTIN 300 MG CAP PO SCH (08:12)
[2018-07-03] MEDS: CEPHALEXIN 500 MG CAP PO SCH ×2 (08:12→12:05)
[2018-07-03] MEDS: DILTIAZEM CD 120 MG CAP.ER.24H PO SCH (08:12)
[2018-07-03] MEDS ORDERED: CEPHALEXIN 250 MG CAP PO SCH (13:00)
[2018-07-03 13:07] VITALS: BP 105/62; PULSE 61; RESP 14; TEMP 98.1
--- NOTE | 2018-07-03 15:10 | PN ---
PROGRESS NOTE DATE OF SERVICE: 07/03/2018 CHIEF COMPLAINT: Right-sided pyelonephritis and metastatic CA of the ovary. HISTORY OF PRESENT ILLNESS: This lady was discharged yesterday, but did want to go home. She apparently had some pain in her legs, which is now better. She will go home today. MMODL / IJN: [id number] /
== END 2018-07-03 13:39 | disposition home or self-care (01) | DRG 690 ==
LOC: EC 04:42 → 6PED 07:14
PROVIDERS: ADMIT Family Medicine; ATTEND Family Medicine
DX: N12 Tubulo-interstitial nephritis, not specified as acute or chronic (principal); C56.9 Malignant neoplasm of unspecified ovary; C79.89 Secondary malignant neoplasm of other specified sites; N17.9 Acute kidney failure, unspecified; I25.10 Atherosclerotic heart disease of native coronary artery without angina pectoris; K21.9 Gastro-esophageal reflux disease without esophagitis; Z79.899 Other long term (current) drug therapy; Z80.1 Family history of malignant neoplasm of trachea, bronchus and lung; Z82.0 Family history of epilepsy and other diseases of the nervous system; Z83.3 Family history of diabetes mellitus; Z86.718 Personal history of other venous thrombosis and embolism; Z90.710 Acquired absence of both cervix and uterus; Z88.3 Allergy status to other anti-infective agents; Z88.5 Allergy status to narcotic agent; Z88.0 Allergy status to penicillin; Z88.8 Allergy status to other drugs, medicaments and biological substances
CPT/HCPCS: 36415; 74018; 74150; 80053; 81001; 83690; 83735; 85025; 87086; 96361; 96365; 96375; 99285

== ENCOUNTER 2018-07-12 18:32 | Inpatient (IN) | payer BC ==
[2018-07-12] MEDS ORDERED: ONDANSETRON 4 MG/2 ML VIAL IVP STA (19:51)
[2018-07-12] MEDS ORDERED: SODIUM CHLORIDE 0.9% 1,000 ML IV STA (19:51)
[2018-07-12] MEDS ORDERED: HYDROmorphone 1 MG/ML 1 ML SYRINGE IVP STA (19:51)
[2018-07-12] MEDS ORDERED: KETOROLAC 30 MG/ML 1 ML VIAL IVP STA (19:51)
--- NOTE | 2018-07-12 20:05 | ED ---
Female Urogenital HPI - General Chief complaint: Urogenital Stated complaint: Kidney issue Time Seen by Provider: 07/12/18 19:24 Source: patient Mode of arrival: ambulatory Limitations: no limitations - History of Present Illness Initial comments: 62-year-old female patient with past medical history significant for ovarian cancer currently receiving oral chemotherapy presents to the emergency department today for evaluation of right flank pain and dysuria. Patient was admitted to the hospital 2 weeks ago for a kidney infection and is currently taking Keflex. Patient states over the last 3-4 days her symptoms have started to worsen. States she did have nausea earlier but did not vomit. Denies any fevers or chills. Patient states she is having an intense aching, dull pain to the right flank region. States that she is having burning with each episode of urination. Denies any hematuria. Patient does have history of placement of a right renal stent. Patient states that she did have the stent replaced in April and has been having difficulty with infections and pain since. Her urologist is Dr. Unger. Patient denies any recent rash, shortness breath, chest pain, diarrhea, constipation, back pain, numbness, tingling, dizziness, weakness, headache, visual changes, or any other complaints. - Related Data Home Medications Medication Instructions Recorded Confirmed ALPRAZolam [Xanax] 0.25 mg PO HS PRN 08/25/14 07/12/18 Diltiazem HCl [Diltiazem 24Hr ER] 120 mg PO DAILY 08/25/14 07/12/18 Gabapentin [Neurontin] 300 mg PO TID 10/17/17 07/12/18 Ferrous Sulfate [Iron (65 MG 325 mg PO DAILY 12/21/17 07/12/18 Elemental)] Escitalopram [Lexapro] 20 mg PO DAILY 06/30/18 07/12/18 Rucaparib Camsylate [Rubraca] 600 mg PO BID 06/30/18 07/12/18 Esomeprazole Magnesium [NexIUM] 20 mg PO DAILY 07/12/18 07/12/18 Potassium 99 mg PO DAILY 07/12/18 07/12/18 Previous Rx's Medication Instructions Recorded Cephalexin [Keflex] 500 mg PO QID #30 cap 07/02/18 Magnesium Oxide [Mag-Ox] 400 mg PO DAILY #100 tab 07/02/18 Allergies Allergy/AdvReac Type Severity Reaction Status Date / Time adhesive Allergy Rash/Hives Verified 07/12/18 20:39 carboplatin Allergy Anaphylaxis Verified 07/12/18 20:39 iodine Allergy Rash/Hives Verified 07/12/18 20:39 Penicillins Allergy Rash/Hives Verified 07/12/18 20:39 codeine AdvReac Nausea & Verified 07/12/18 20:39 Vomiting morphine AdvReac Nausea & Verified 07/12/18 20:39 Vomiting Review of Systems ROS Statement: Those systems with pertinent positive or pertinent negative responses have been documented in the HPI. ROS Other: All systems not noted in ROS Statement are negative. Past Medical History Past Medical History: Coronary Artery Disease (CAD), Cancer, Deep Vein Thrombosis (DVT), GERD/Reflux Additional Past Medical History / Comment(s): 2006 Ovarian cancer with surgery/ chemo, reoccurrance ovarian cancer 08/2017 with abdominal mets and receiving chemo, recurrent admissions for UTI/SBO/Ureteral Obstruction in 2017, R leg DVT 2014, bilateral TMJ with surgery/pins. History of Any Multi-Drug Resistant Organisms: VRE Date of last positivie culture/infection: 01/26/18 MDRO Source:: urine Past Surgical History: Adenoidectomy, Appendectomy, Cholecystectomy, Heart Catheterization With Stent, Hysterectomy, Tonsillectomy Additional Past Surgical History / Comment(s): ovarian cancer with bilateral oopherectomy/hysterectomy 2005; 2 open exploratory abdominal surgery, R chest mediport placed 2011, bilateral retrograde pyelogram cystoscopy with R ureter stent, jaws have pins d/t surgery for TMJ, colonoscopy Past Anesthesia/Blood Transfusion Reactions: No Reported Reaction Additional Past Anesthesia/Blood Transfusion Reaction / Comment(s): Pt has received blood in past without reaction. Date of Last Stent Placement:: 2011 Past Psychological History: Anxiety, Depression Smoking Status: Never smoker Past Alcohol Use History: None Reported Past Drug Use History: None Reported - Past Family History Mother Family Medical History: Diabetes Mellitus, Dialysis Brother(s) Family Medical History: Cancer Additional Family Medical History / Comment(s): lung cancer- since passed Sister(s) Family Medical History: CVA/TIA Father Family Medical History: Dementia, Neurologic Disorder Additional Family Medical History / Comment(s): alzheimers General Exam Limitations: no limitations General appearance: alert, in no apparent distress, other (Physical well- developed, well-nourished adult female patient in no acute distress. Vital signs upon presentation are temperature 98.4F, pulse 79, respirations 16, blood pressure 141/84, pulse ox 97% on room air.) Eye exam: Present: normal appearance, PERRL, EOMI. Absent: scleral icterus, conjunctival injection, periorbital swelling ENT exam: Present: normal exam, normal oropharynx, mucous membranes moist Respiratory exam: Present: normal lung sounds bilaterally. Absent: respiratory distress, wheezes, rales, rhonchi, stridor Cardiovascular Exam: Present: regular rate, normal rhythm, normal heart sounds. Absent: systolic murmur, diastolic murmur, rubs, gallop, clicks GI/Abdominal exam: Present: soft, normal bowel sounds. Absent: distended, tenderness, guarding, rebound, rigid Back exam: Present: normal inspection. Absent: CVA tenderness (R), CVA tenderness (L) Neurological exam: Present: alert, oriented X3, CN II-XII intact Psychiatric exam: Present: normal affect, normal mood Skin exam: Present: warm, dry, intact, normal color. Absent: rash Course Vital Signs 07/12/18 07/12/18 19:05 21:35 Temperature 98.4 F Pulse Rate 79 72 Respiratory 16 16 Rate Blood Pressure 141/84 145/98 O2 Sat by Pulse 97 98 Oximetry Medical Decision Making - Medical Decision Making 62-year-old female patient presents to the emergency department today for evaluation of right flank pain and dysuria. Patient was recently admitted for pyelonephritis was discharged home on Keflex. Patient states she has been taking this antibiotic and still has a few days left however she is still experiencing symptoms. Patient states that she has had some nausea. Denied fevers or chills. Physical examination did reveal right CVA tenderness. Mild suprapubic tenderness. Labs reviewed and did reveal elevated white cells and red cells in the urine with evidence for bacteria. This will be sent for culture. We'll keep patient in the hospital for IV antibiotics for failed outpatient treatment of pyelonephritis. - Lab Data Result diagrams: 07/12/18 20:20 07/12/18 20:20 Lab Results 07/12/18 07/12/18 07/12/18 Range/Units 20:20 20:20 20:20 WBC 6.3 (3.8-10.6) k/uL RBC 3.79 L (3.80-5.40) m/uL Hgb 12.9 (11.4-16.0) gm/dL Hct 37.6 (34.0-46.0) % MCV 99.3 (80.0-100.0) fL MCH 34.1 (25.0-35.0) pg MCHC 34.4 (31.0-37.0) g/dL RDW 14.4 (11.5-15.5) % Plt Count 118 L (150-450) k/uL Neutrophils % 68 % Lymphocytes % 20 % Monocytes % 7 % Eosinophils % 3 % Basophils % 1 % Neutrophils # 4.3 (1.3-7.7) k/uL Lymphocytes # 1.2 (1.0-4.8) k/uL Monocytes # 0.4 (0-1.0) k/uL Eosinophils # 0.2 (0-0.7) k/uL Basophils # 0.0 (0-0.2) k/uL Sodium 141 (137-145) mmol/L Potassium 3.8 (3.5-5.1) mmol/L Chloride 106 (98-107) mmol/L Carbon Dioxide 26 (22-30) mmol/L Anion Gap 9 mmol/L BUN 25 H (7-17) mg/dL Creatinine 1.46 H (0.52-1.04) mg/dL Est GFR (CKD-EPI)AfAm 44 (>60 ml/min/1.73 sqM) Est GFR (CKD-EPI)NonAf 38 (>60 ml/min/1.73 sqM) Glucose 134 H (74-99) mg/dL Plasma Lactic Acid Chad 1.2 (0.7-2.0) mmol/L Calcium 8.6 (8.4-10.2) mg/dL Total Bilirubin 0.2 (0.2-1.3) mg/dL AST 26 (14-36) U/L ALT 30 (9-52) U/L Alkaline Phosphatase 78 (38-126) U/L Total Protein 6.3 (6.3-8.2) g/dL Albumin 3.6 (3.5-5.0) g/dL Amylase 40 (30-110) U/L Lipase 61 (23-300) U/L Urine Color Urine Appearance (Clear) Urine pH (5.0-8.0) Ur Specific Goldsmith (1.001-1.035) Urine Protein (Negative) Urine Glucose (UA) (Negative) Urine Ketones (Negative) Urine Blood (Negative) Urine Nitrite (Negative) Urine Bilirubin (Negative) Urine Urobilinogen (<2.0) mg/dL Ur Leukocyte Esterase (Negative) Urine RBC (0-5) /hpf Urine WBC (0-5) /hpf Ur Squamous Epith Cells (0-4) /hpf Urine Bacteria (None) /hpf Urine Mucus (None) /hpf 07/12/18 Range/Units 20:20 WBC (3.8-10.6) k/uL RBC (3.80-5.40) m/uL Hgb (11.4-16.0) gm/dL Hct (34.0-46.0) % MCV (80.0-100.0) fL MCH (25.0-35.0) pg MCHC (31.0-37.0) g/dL RDW (11.5-15.5) % Plt Count (150-450) k/uL Neutrophils % % Lymphocytes % % Monocytes % % Eosinophils % % Basophils % % Neutrophils # (1.3-7.7) k/uL Lymphocytes # (1.0-4.8) k/uL Monocytes # (0-1.0) k/uL Eosinophils # (0-0.7) k/uL Basophils # (0-0.2) k/uL Sodium (137-145) mmol/L Potassium (3.5-5.1) mmol/L Chloride (98-107) mmol/L Carbon Dioxide (22-30) mmol/L Anion Gap mmol/L BUN (7-17) mg/dL Creatinine (0.52-1.04) mg/dL Est GFR (CKD-EPI)AfAm (>60 ml/min/1.73 sqM) Est GFR (CKD-EPI)NonAf (>60 ml/min/1.73 sqM) Glucose (74-99) mg/dL Plasma Lactic Acid Chad (0.7-2.0) mmol/L Calcium (8.4-10.2) mg/dL Total Bilirubin (0.2-1.3) mg/dL AST (14-36) U/L ALT (9-52) U/L Alkaline Phosphatase (38-126) U/L Total Protein (6.3-8.2) g/dL Albumin (3.5-5.0) g/dL Amylase (30-110) U/L Lipase (23-300) U/L Urine Color Yellow Urine Appearance Cloudy H (Clear) Urine pH 5.5 (5.0-8.0) Ur Specific Goldsmith 1.019 (1.001-1.035) Urine Protein 2+ H (Negative) Urine Glucose (UA) Negative (Negative) Urine Ketones Negative (Negative) Urine Blood Moderate H (Negative) Urine Nitrite Negative (Negative) Urine Bilirubin Negative (Negative) Urine Urobilinogen 2.0 (<2.0) mg/dL Ur Leukocyte Esterase Large H (Negative) Urine RBC 113 H (0-5) /hpf Urine WBC 171 H (0-5) /hpf Ur Squamous Epith Cells 1 (0-4) /hpf Urine Bacteria Rare H (None) /hpf Urine Mucus Rare H (None) /hpf Disposition Clinical Impression: Acute pyelonephritis Disposition: ADMITTED IP TO THIS [facility] Condition: Serious Decision Date: 07/12/18 Decision Time: 22:19
[2018-07-12 20:44] LABS: Basophils % (A) 1 %; Eosinophils # (A) 0.2 k/uL (0-0.7); Eosinophils % (A) 3 %; HCT 37.6 % (34.0-46.0); HGB 12.9 gm/dL (11.4-16.0); Lymphocytes # (A) 1.2 k/uL (1.0-4.8); Lymphocytes % (A) 20 %; MCH 34.1 pg (25.0-35.0); MCHC 34.4 g/dL (31.0-37.0); MCV 99.3 fL (80.0-100.0); Mean Platelet Volume 7.3; Monocytes # (A) 0.4 k/uL (0-1.0); Monocytes % (A) 7 %; Neutrophils # (A) 4.3 k/uL (1.3-7.7); Neutrophils % (A) 68 %; Platelet Count 118 k/uL (150-450); RBC 3.79 m/uL (3.80-5.40); RDW 14.4 % (11.5-15.5); WBC 6.3 k/uL (3.8-10.6)
[2018-07-12 20:45] LABS: Appearance,Urine Cloudy (Clear); Bacteria,Urine Rare /hpf; Bilirubin,Urine Negative (Negative); Blood,Urine Moderate (Negative); Color,Urine Yellow; Glucose,Urine (UA) Negative (Negative); Ketones,Urine Negative (Negative); Leukocyte Esterase,Urine Large (Negative); Mucus,Urine Rare /hpf; Nitrite,Urine Negative (Negative); PH, Urine 5.5 (5.0-8.0); Protein,Urine 2+ (Negative); RBC,Urine 113 /hpf (0-5); Specific Gravity,Urine 1.019 (1.001-1.035); Squamous Epithelial Cell,Urine 1 /hpf (0-4); WBC,Urine 171 /hpf (0-5)
[2018-07-12 20:48] LABS: Albumin 3.6 g/dL (3.5-5.0); Calcium 8.6 mg/dL (8.4-10.2); Potassium 3.8 mmol/L (3.5-5.1); Total Bilirubin 0.2 mg/dL (0.2-1.3); Total Protein 6.3 g/dL (6.3-8.2)
[2018-07-12] MEDS ORDERED: HYDROmorphone 2 MG/ML 1 ML SYRINGE IVP STA (22:12)
[2018-07-12] MEDS ORDERED: NALOXONE 0.4 MG/ML 1 ML VIAL IV PRN (22:19)
[2018-07-12] MEDS ORDERED: ALPRAZolam 0.25 MG TAB PO PRN (22:22)
[2018-07-13 00:05] VITALS: BMI 23.3
[2018-07-13] MEDS: SODIUM CHLORIDE 0.9% 1,000 ML IV SCH ×2 (00:08→10:31)
[2018-07-13] MEDS: HYDROmorphone 1 MG/ML 1 ML SYRINGE IVP PRN ×7 (01:26→23:01)
[2018-07-13] MEDS: GABAPENTIN 300 MG CAP PO SCH ×3 (07:31→23:00)
[2018-07-13] MEDS: PANTOPRAZOLE 40 MG TABLET PO SCH (07:31)
[2018-07-13] MEDS: DILTIAZEM CD 120 MG CAP.ER.24H PO SCH (07:32)
[2018-07-13] MEDS: RUCAPARIB CAMSYLATE PO SCH ×2 (07:32→19:58)
[2018-07-13] MEDS: FERROUS SULFATE 325 MG TAB PO SCH (07:32)
[2018-07-13] MEDS: MAGNESIUM OXIDE 400 MG TAB PO SCH (07:32)
[2018-07-13] MEDS: ESCITALOPRAM 20 MG TAB PO SCH (07:32)
[2018-07-13] MEDS: ONDANSETRON 4 MG/2 ML VIAL IVP PRN (08:07)
[2018-07-13] MEDS ORDERED: NON-FORMULARY DRUG (Potassium [Potassium] 99 MG) PO SCH (09:00)
[2018-07-13 09:07] LABS: Albumin 3.2 g/dL (3.5-5.0); Calcium 8.7 mg/dL (8.4-10.2); Potassium 4.2 mmol/L (3.5-5.1); Total Bilirubin 0.5 mg/dL (0.2-1.3); Total Protein 5.8 g/dL (6.3-8.2)
--- NOTE | 2018-07-13 14:58 | US ---
EXAMINATION TYPE: US kidneys/renal and bladder DATE OF EXAM: 07/12/2018 COMPARISON: NONE CLINICAL HISTORY: Flank Pain; Recurrent pyelonephritis. EXAM MEASUREMENTS: Right Kidney: 11.9 x 6.6 x 6.2 cm Left Kidney: 10.1 x 3.5 x 4.4 cm Right Kidney: moderate to marked hydronephrosis Left Kidney: No hydronephrosis or masses seen Bladder: Echogenic structure is present. IMPRESSION: 1. Moderate to marked right hydronephrosis. This appears somewhat increased from 12/23/2017.
--- NOTE | 2018-07-13 16:59 | HP ---
HISTORY AND PHYSICAL CHIEF COMPLAINT: Right flank pain and probable pyelonephritis. HISTORY OF PRESENT ILLNESS: This is another recent admission for this 62-year-old white female who has chronic problems with her kidneys due to obstructive uropathy related to advancing ovarian carcinoma. She just recently went home and now she presents back with a lot of flank pain, right-sided abdominal pains, chills and fever, and she is admitted with pyelonephritis. REVIEW OF SYSTEMS: She has had chills. She has had no shortness of breath, chest pain, hematemesis, melena, hematochezia, hematuria, etc. Past medical history, family history, and personal and social histories are all otherwise unchanged, unremarkable and noncontributory. PHYSICAL EXAMINATION: Blood pressure is 120/55 with a pulse of 104, respirations of 32, and she is afebrile. In general she appeared to be slightly pale and uncomfortable. Skin was dry and lymph nodes were not enlarged. Head, ears, eyes, nose, mouth and throat were normal. Neck veins were not distended. Thyroid was not enlarged. Chest was clear. Cardiac exam was normal. Abdomen was soft. She was a little bit tender in the right upper quadrant. She was tender in the right flank. Extremities were normal. Neurologically she was intact. IMPRESSION: 1. Right flank pain. 2. Pyelonephritis. 3. Right ureteral obstruction with stent. 4. Advanced carcinoma of the ovary. PLAN: 1. Bed rest. 2. IV fluids. 3. IV antibiotics. MMODL / ROBERTN: [id number] /
--- NOTE | 2018-07-13 17:05 | PN ---
PROGRESS NOTE CHIEF COMPLAINT: Right flank pain. HISTORY OF PRESENT ILLNESS: This lady is still complaining of quite a bit of flank as well as abdominal pain. She has had no fever or chills. She has been nauseated. PHYSICAL EXAMINATION: She is tender in the right flank and right upper quadrant. There is thickening on examination of lower abdomen. IMPRESSION: 1. Right-sided pyelonephritis. 2. Obstructive uropathy. 3. Advanced carcinoma of the ovary. PLAN: Continue with IV fluids and antibiotics. MMODL / IJN: [id number] /
[2018-07-13] MEDS: ACETAMINOPHEN TAB 325 MG TAB PO PRN (18:45)
[2018-07-13] MEDS: HEPARIN SODIUM,PORCINE 5,000 UNIT/ML 1 ML VIAL SQ SCH (19:59)
[2018-07-14] MEDS: SODIUM CHLORIDE 0.9% 1,000 ML IV SCH ×2 (00:24→13:57)
[2018-07-14] MEDS: HYDROmorphone 1 MG/ML 1 ML SYRINGE IVP PRN ×4 (04:25→21:17)
[2018-07-14] MEDS: HEPARIN SODIUM,PORCINE 5,000 UNIT/ML 1 ML VIAL SQ SCH ×2 (08:58→21:16)
[2018-07-14] MEDS: MAGNESIUM OXIDE 400 MG TAB PO SCH (08:58)
[2018-07-14] MEDS: ESCITALOPRAM 20 MG TAB PO SCH (08:58)
[2018-07-14] MEDS: ACETAMINOPHEN TAB 325 MG TAB PO PRN ×2 (08:58→19:54)
[2018-07-14] MEDS: FERROUS SULFATE 325 MG TAB PO SCH (08:58)
[2018-07-14] MEDS: PANTOPRAZOLE 40 MG TABLET PO SCH (08:58)
[2018-07-14] MEDS: GABAPENTIN 300 MG CAP PO SCH ×3 (08:59→21:16)
[2018-07-14] MEDS: DILTIAZEM CD 120 MG CAP.ER.24H PO SCH (08:59)
[2018-07-14] MEDS: RUCAPARIB CAMSYLATE PO SCH ×2 (08:59→21:25)
--- NOTE | 2018-07-14 15:06 | PN ---
PROGRESS NOTE CHIEF COMPLAINT: Right-sided pyelonephritis. HISTORY OF PRESENT ILLNESS: This lady is doing better. Pain is improved. Temperatures have stayed normal. PHYSICAL EXAMINATION: Chest is clear. Cardiac exam is normal. The abdomen seems soft. She has mild tenderness in the right upper quadrant and lower abdomen as well. IMPRESSION: 1. Right-sided pyelonephritis. 2. Carcinoma of the ovary. PLAN: Continue with IV fluids and antibiotics. MMODL / IJN: [id number] /
[2018-07-14] MEDS: MAGNESIUM HYDROXIDE 2,400 MG/10 ML CUP PO PRN (15:20)
[2018-07-14] MEDS: ONDANSETRON 4 MG/2 ML VIAL IVP PRN (18:48)
[2018-07-14 23:17] LABS: Hepatitis A Antibody IgM Non-Reactive (Non-Reactive); Hepatitis B Core IgM Non-Reactive (Non-Reactive); Hepatitis C IgG Antibody Non-Reactive (Non-Reactive)
[2018-07-15] MEDS: HYDROmorphone 1 MG/ML 1 ML SYRINGE IVP PRN ×7 (00:45→23:22)
[2018-07-15] MEDS: ACETAMINOPHEN TAB 325 MG TAB PO PRN (02:37)
[2018-07-15] MEDS: SODIUM CHLORIDE 0.9% 1,000 ML IV SCH ×2 (04:11→14:26)
[2018-07-15] MEDS: PANTOPRAZOLE 40 MG TABLET PO SCH (08:32)
[2018-07-15] MEDS: DILTIAZEM CD 120 MG CAP.ER.24H PO SCH (08:32)
[2018-07-15] MEDS: HEPARIN SODIUM,PORCINE 5,000 UNIT/ML 1 ML VIAL SQ SCH ×2 (08:32→20:15)
[2018-07-15] MEDS: ESCITALOPRAM 20 MG TAB PO SCH (08:32)
[2018-07-15] MEDS: MAGNESIUM HYDROXIDE 2,400 MG/10 ML CUP PO PRN (08:32)
[2018-07-15] MEDS: GABAPENTIN 300 MG CAP PO SCH ×3 (08:32→20:15)
[2018-07-15] MEDS: FERROUS SULFATE 325 MG TAB PO SCH (08:32)
[2018-07-15] MEDS: MAGNESIUM OXIDE 400 MG TAB PO SCH (08:33)
[2018-07-15] MEDS: RUCAPARIB CAMSYLATE PO SCH ×2 (08:33→20:28)
[2018-07-15] MEDS: ONDANSETRON 4 MG/2 ML VIAL IVP PRN (11:31)
--- NOTE | 2018-07-15 13:35 | US ---
EXAMINATION TYPE: US liver DATE OF EXAM: 07/15/2018 COMPARISON: NONE CLINICAL HISTORY: 62-year-old female increasing LFTs. Cholecystectomy, right flank pain, known right hydronephrosis TECHNIQUE: Multiple sonographic images of the right upper quadrant are obtained. FINDINGS: EXAM MEASUREMENTS: Liver Length: 16.3 cm Gallbladder: Surgically absent CBD: 1.5 cm Right Kidney: 10.5 x 4.9 x 4.4 cm Pancreas: No gross abnormality Liver: wnl Gallbladder: Surgically absent Evidence for sonographic Wooten's sign: no CBD: dilated at 1.5 cm . Right Kidney: hydronephrosis seen . This does not seem to be as pronounced as 07/13/2018. IMPRESSION: 1. No specific sonographic abnormality of the liver. 2. The bile duct is dilated at 1.5 cm. This may relate to postcholecystectomy status. Correlate with alkaline phosphatase and bilirubin levels to exclude biliary obstruction. 3. Right-sided hydronephrosis appears slightly improved from 07/13/2018.
[2018-07-15 13:39] LABS: Albumin 3.2 g/dL (3.5-5.0); Calcium 9.4 mg/dL (8.4-10.2); Potassium 4.1 mmol/L (3.5-5.1); Total Bilirubin 0.4 mg/dL (0.2-1.3); Total Protein 5.9 g/dL (6.3-8.2)
[2018-07-15 14:07] LABS: Basophils % (A) 1 %; Eosinophils # (A) 0.1 k/uL (0-0.7); Eosinophils % (A) 3 %; HCT 28.7 % (34.0-46.0); Lymphocytes # (A) 1.3 k/uL (1.0-4.8); Lymphocytes % (A) 35 %; MCH 33.9 pg (25.0-35.0); MCHC 34.6 g/dL (31.0-37.0); MCV 98.1 fL (80.0-100.0); Monocytes # (A) 0.2 k/uL (0-1.0); Monocytes % (A) 6 %; Neutrophils % (A) 52 %; Platelet Count 111 k/uL (150-450); RBC 2.93 m/uL (3.80-5.40); RDW 13.8 % (11.5-15.5); WBC 3.8 k/uL (3.8-10.6)
[2018-07-15 14:10] LABS: HGB 9.9 gm/dL (11.4-16.0)
[2018-07-16] MEDS: SODIUM CHLORIDE 0.9% 1,000 ML IV SCH ×2 (03:33→13:21)
[2018-07-16] MEDS: HYDROmorphone 1 MG/ML 1 ML SYRINGE IVP PRN ×2 (03:52→13:21)
[2018-07-16] MEDS: RUCAPARIB CAMSYLATE PO SCH (08:10)
[2018-07-16] MEDS: MAGNESIUM OXIDE 400 MG TAB PO SCH (08:10)
[2018-07-16] MEDS: HEPARIN SODIUM,PORCINE 5,000 UNIT/ML 1 ML VIAL SQ SCH (08:10)
[2018-07-16] MEDS: GABAPENTIN 300 MG CAP PO SCH ×2 (08:10→15:01)
[2018-07-16] MEDS: FERROUS SULFATE 325 MG TAB PO SCH (08:10)
[2018-07-16] MEDS: PANTOPRAZOLE 40 MG TABLET PO SCH (08:10)
[2018-07-16] MEDS: ESCITALOPRAM 20 MG TAB PO SCH (08:10)
[2018-07-16] MEDS: DILTIAZEM CD 120 MG CAP.ER.24H PO SCH (08:16)
[2018-07-16 11:07] LABS: Basophils % (A) 1 %; Eosinophils # (A) 0.1 k/uL (0-0.7); Eosinophils % (A) 3 %; HCT 29.8 % (34.0-46.0); HGB 10.1 gm/dL (11.4-16.0); Lymphocytes # (A) 1.1 k/uL (1.0-4.8); Lymphocytes % (A) 31 %; MCH 33.8 pg (25.0-35.0); MCV 99.2 fL (80.0-100.0); Mean Platelet Volume 7.3; Monocytes # (A) 0.3 k/uL (0-1.0); Monocytes % (A) 8 %; Neutrophils % (A) 54 %; Platelet Count 97 k/uL (150-450); RDW 14.2 % (11.5-15.5); WBC 3.7 k/uL (3.8-10.6)
[2018-07-16 11:55] LABS: Poikilocytosis (M) Present
[2018-07-16 14:16] VITALS: BP 117/50; PULSE 64; RESP 16; TEMP 98.2
[2018-07-16 14:28] LABS: Albumin 3.6 g/dL (3.5-5.0); Calcium 9.8 mg/dL (8.4-10.2); Potassium 4.3 mmol/L (3.5-5.1); Total Bilirubin 0.4 mg/dL (0.2-1.3); Total Protein 6.3 g/dL (6.3-8.2)
[2018-07-16] MEDS ORDERED: CEPHALEXIN 500 MG CAP PO SCH (18:00)
--- NOTE | 2018-07-18 16:59 | PN ---
PROGRESS NOTE CHIEF COMPLAINT: Right-sided pyelonephritis, cancer of the ovary, and elevated liver function studies. HISTORY OF PRESENT ILLNESS: This lady is still complaining of some right flank and right upper quadrant pain. Temperature has been down. Liver functions were elevated, which is a new issue for her. PHYSICAL EXAMINATION: She is afebrile. She is tender in the upper abdomen. There is a lower abdominal thickness and fullness due to her ovarian neoplasm. She is tender in the right flank. IMPRESSION: 1. Right-sided pyelonephritis. 2. Obstructive nephropathy. 3. Metastatic carcinoma of the ovary. 4. Elevated liver function studies. PLAN: 1. Repeat liver studies. 2. Continue with IV fluids and antibiotics. MMODL / IJN: [id number] /
--- NOTE | 2018-07-18 18:17 | DS ---
DISCHARGE SUMMARY CHIEF COMPLAINT: Right-sided pyelonephritis. HISTORY OF PRESENT ILLNESS AND PHYSICAL EXAMINATION: Details of this lady's history and physical can be found in the initial workup. LABORATORY STUDIES: While she was in the hospital she had laboratory studies, details of which can be found in the laboratory section of her chart. COURSE IN THE HOSPITAL: After admission she was placed on bedrest, started on intravenous fluids and IV antibiotics for the pyelonephritis. While in the hospital, liver function studies were noted to be elevated, and they did start to come back down before discharge. She was doing well and was not having any further pain, fever or chills, and it was felt that she could go home on oral antibiotics and be seen in the office in several days. FINAL DIAGNOSES: 1. Right-sided pyelonephritis. 2. Obstructive nephropathy. 3. Extensive ovarian carcinoma. OPERATIONS: None. CONSULTATIONS: None. She is improved. MMODL / IJN: [id number] /
== END 2018-07-16 15:52 | disposition home or self-care (01) | DRG 690 ==
LOC: EC 18:32 → 4MS4W 21:57
PROVIDERS: ADMIT Family Medicine; ATTEND Family Medicine
DX: N10 Acute pyelonephritis (principal); C56.9 Malignant neoplasm of unspecified ovary; C79.89 Secondary malignant neoplasm of other specified sites; I25.10 Atherosclerotic heart disease of native coronary artery without angina pectoris; K21.9 Gastro-esophageal reflux disease without esophagitis; F32.9 Major depressive disorder, single episode, unspecified; F41.9 Anxiety disorder, unspecified; Z86.718 Personal history of other venous thrombosis and embolism; Z90.710 Acquired absence of both cervix and uterus; Z90.722 Acquired absence of ovaries, bilateral; Z79.899 Other long term (current) drug therapy; Z91.041 Radiographic dye allergy status; Z88.5 Allergy status to narcotic agent; Z88.0 Allergy status to penicillin; Z88.8 Allergy status to other drugs, medicaments and biological substances; Z91.048 Other nonmedicinal substance allergy status; Z90.49 Acquired absence of other specified parts of digestive tract; Z95.5 Presence of coronary angioplasty implant and graft; Z80.1 Family history of malignant neoplasm of trachea, bronchus and lung; Z82.0 Family history of epilepsy and other diseases of the nervous system; Z83.3 Family history of diabetes mellitus; Z82.3 Family history of stroke; Z84.1 Family history of disorders of kidney and ureter
CPT/HCPCS: 36415; 76705; 76770; 80053; 81001; 82150; 83605; 83690; 85025; 86705; 86709; 86803; 87040; 87086; 96361; 96374; 96375; 96376; 99284

== ENCOUNTER 2018-09-14 16:59 | Observation (INO) | payer MEDICARE ==
[2018-09-14] MEDS ORDERED: ASPIRIN 81 MG PO STA (17:14)
[2018-09-14] MEDS ORDERED: KETOROLAC 30 MG/ML 1 ML VIAL IVP STA (17:22)
[2018-09-14] MEDS ORDERED: HYDROmorphone 0.5 MG/0.5 ML SYRINGE IVP STA (17:50)
[2018-09-14 18:03] LABS: Basophils % (A) 1 %; Eosinophils # (A) 0.1 k/uL (0-0.7); Eosinophils % (A) 1 %; HCT 30.3 % (34.0-46.0); HGB 10.7 gm/dL (11.4-16.0); Lymphocytes # (A) 1.5 k/uL (1.0-4.8); Lymphocytes % (A) 30 %; MCH 35.3 pg (25.0-35.0); MCHC 35.4 g/dL (31.0-37.0); MCV 99.7 fL (80.0-100.0); Mean Platelet Volume 8.3; Monocytes # (A) 0.2 k/uL (0-1.0); Monocytes % (A) 4 %; Neutrophils # (A) 3.1 k/uL (1.3-7.7); Neutrophils % (A) 61 %; Platelet Count 145 k/uL (150-450); RBC 3.04 m/uL (3.80-5.40); RDW 14.5 % (11.5-15.5); WBC 5.1 k/uL (3.8-10.6)
[2018-09-14 18:14] LABS: INR 0.9 (<1.2); Partial Thromboplastin Time 22.8 sec (22.0-30.0); Prothrombin Time 9.9 sec (9.0-12.0)
--- NOTE | 2018-09-14 18:18 | XR ---
EXAMINATION TYPE: XR chest 2V DATE OF EXAM: 09/14/2018 COMPARISON: Chest x-ray February 12, 2018 HISTORY: Chest pain. TECHNIQUE: Frontal and lateral views of the chest are obtained. FINDINGS: There is stable right subclavian Mediport catheter. There is chronic parenchymal change wi thout suspicious focal air space opacity, pleural effusion, or pneumothorax seen. The cardiac silhou ette size is within normal limits. Overlying EKG leads are present. The osseous structures are intac t. IMPRESSION: No acute cardiopulmonary process. No change from prior.
--- NOTE | 2018-09-14 18:21 | ED ---
Chest Pain HPI - General Chief Complaint: Chest Pain Stated Complaint: CHEST PAIN, KIDNEY PROBLEM Time Seen by Provider: 09/14/18 17:12 Source: patient, RN notes reviewed Mode of arrival: ambulatory Limitations: no limitations - History of Present Illness Initial Comments: This a 63-year-old female presents emergency Department chief complaint chest pain. Patient states chest pain has been present today. Patient states it's centralized radiating chest pain. Patient does have a history of ID with stent placement. Patient also has underlying ovarian cancer in which she has been battling since thousand 6. Denies any associated shortness of breath. Patient states that she's had some urinary symptoms recently in which she was seen by her PCP a urinalysis which is negative was given Flomax and near bariatric. Patient states that she still has urinary frequency with dysuria. No fevers no chills denies any flank pain. - Related Data Home Medications Medication Instructions Recorded Confirmed ALPRAZolam [Xanax] 0.25 mg PO HS PRN 08/25/14 09/14/18 Diltiazem HCl [Diltiazem 24Hr ER] 120 mg PO DAILY 08/25/14 09/14/18 Gabapentin [Neurontin] 300 mg PO TID 10/17/17 09/14/18 Escitalopram [Lexapro] 20 mg PO DAILY 06/30/18 09/14/18 Esomeprazole Magnesium [NexIUM] 20 mg PO DAILY 07/12/18 09/14/18 Ondansetron HCl [Zofran] 8 mg PO Q8H PRN 09/14/18 09/14/18 Tamsulosin [Flomax] 0.4 mg PO HS 09/14/18 09/14/18 Allergies Allergy/AdvReac Type Severity Reaction Status Date / Time adhesive Allergy Rash/Hives Verified 09/14/18 18:55 carboplatin Allergy Anaphylaxis Verified 09/14/18 18:55 iodine Allergy Rash/Hives Verified 09/14/18 18:55 Penicillins Allergy Rash/Hives Verified 09/14/18 18:55 codeine AdvReac Nausea & Verified 09/14/18 18:55 Vomiting morphine AdvReac Nausea & Verified 09/14/18 18:55 Vomiting Review of Systems ROS Statement: Those systems with pertinent positive or pertinent negative responses have been documented in the HPI. ROS Other: All systems not noted in ROS Statement are negative. Past Medical History Past Medical History: Cancer, Deep Vein Thrombosis (DVT) Additional Past Medical History / Comment(s): 2006 Ovarian cancer with surgery/chemo, reoccurrance ovarian cancer 08/2017 with abdominal mets and receiving chemo, recurrent admissions for UTI/SBO/Ureteral Obstruction in 2018, R leg DVT 2014, bilateral TMJ with surgery/pins. History of Any Multi-Drug Resistant Organisms: VRE Date of last positivie culture/infection: 01/26/18 MDRO Source:: urine Past Surgical History: Heart Catheterization With Stent, Hysterectomy Additional Past Surgical History / Comment(s): ovarian cancer with bilateral oopherectomy/hysterectomy 2005; 2 open exploratory abdominal surgery, R chest mediport placed 2011, bilateral retrograde pyelogram cystoscopy with R ureter stent, jaws have pins d/t surgery for TMJ, colonoscopy Past Anesthesia/Blood Transfusion Reactions: No Reported Reaction Additional Past Anesthesia/Blood Transfusion Reaction / Comment(s): Pt has received blood in past without reaction. Date of Last Stent Placement:: 2011 Past Psychological History: Anxiety, Depression Smoking Status: Never smoker Past Alcohol Use History: None Reported Past Drug Use History: None Reported - Past Family History Brother(s) Family Medical History: Cancer Additional Family Medical History / Comment(s): lung cancer- since passed Sister(s) Family Medical History: CVA/TIA Father Family Medical History: Dementia, Neurologic Disorder Additional Family Medical History / Comment(s): alzheimers General Exam Limitations: no limitations General appearance: alert, in no apparent distress Head exam: Present: atraumatic, normocephalic, normal inspection Eye exam: Present: normal appearance, PERRL, EOMI. Absent: scleral icterus, conjunctival injection, periorbital swelling ENT exam: Present: normal exam, normal oropharynx, mucous membranes moist Neck exam: Present: normal inspection, full ROM. Absent: tenderness, meningismus, lymphadenopathy Respiratory exam: Present: normal lung sounds bilaterally. Absent: respiratory distress, wheezes, rales, rhonchi, stridor Cardiovascular Exam: Present: regular rate, normal rhythm, normal heart sounds. Absent: systolic murmur, diastolic murmur, rubs, gallop, clicks GI/Abdominal exam: Present: soft, normal bowel sounds. Absent: distended, tenderness, guarding, rebound, rigid Back exam: Absent: CVA tenderness (R), CVA tenderness (L) Skin exam: Present: warm, dry, intact, normal color. Absent: rash Course Vital Signs 09/14/18 09/14/18 17:04 18:41 Temperature 98 F Pulse Rate 77 64 Respiratory 18 16 Rate Blood Pressure 114/60 139/58 O2 Sat by Pulse 100 98 Oximetry Chest Pain MDM - MDM 63-year-old female presented for chest pain and urinary symptoms. Patient does have evidence of urinary tract infection will be started on IV antibiotics. Patient be admitted for chest pain obvious. Patient will have serial troponins. Patient will not be started on heparin at this time. Patient will have repeat EKG if chest pain recurs. Patient did tilt oral magnesium magnesium is 1.4 at this time. Patient will continue oral magnesium replacement. Disposition Clinical Impression: Chest pain, UTI (urinary tract infection) Disposition: ADMITTED IP TO THIS HOSP Condition: Fair Referrals: Kevin Metzger MD [Primary Care Provider] - 1-2 days
[2018-09-14 18:35] LABS: Albumin 3.8 g/dL (3.5-5.0); Calcium 9.3 mg/dL (8.4-10.2); Magnesium 1.4 mg/dL (1.6-2.3); Potassium 3.9 mmol/L (3.5-5.1); Total Bilirubin 0.3 mg/dL (0.2-1.3); Total Protein 6.3 g/dL (6.3-8.2)
[2018-09-14 18:54] LABS: Appearance,Urine Cloudy (Clear); Bacteria,Urine Many /hpf; Bilirubin,Urine Negative (Negative); Blood,Urine Moderate (Negative); Color,Urine Yellow; Glucose,Urine (UA) Negative (Negative); Ketones,Urine Negative (Negative); Leukocyte Esterase,Urine Large (Negative); Mucus,Urine Occasional /hpf; Nitrite,Urine Negative (Negative); PH, Urine 5.5 (5.0-8.0); Protein,Urine 1+ (Negative); RBC,Urine >182 /hpf (0-5); Specific Gravity,Urine 1.026 (1.001-1.035); Squamous Epithelial Cell,Urine 1 /hpf (0-4); Urobilinogen,Urine <2.0 mg/dL (<2.0)
[2018-09-14] MEDS ORDERED: MAGNESIUM SULFATE-D5W PMX 1 GM in DEXTROSE/WATER 1 100ML.BAG IVPB ONE (19:31)
[2018-09-14] MEDS ORDERED: NITROGLYCERIN SL TABS 0.4 MG TAB SUBLINGUAL PRN (19:38)
[2018-09-14] MEDS ORDERED: ONDANSETRON ODT 4 MG TAB PO PRN (22:00)
[2018-09-14] MEDS: TAMSULOSIN 0.4 MG CAP.ER.24H PO SCH (22:08)
[2018-09-14] MEDS: HYDROmorphone 1 MG/ML 1 ML SYRINGE IVP PRN (22:08)
[2018-09-14] MEDS: GABAPENTIN 300 MG CAP PO SCH (22:08)
[2018-09-14] MEDS: ZOLPIDEM 5 MG TAB PO SCH (22:12)
[2018-09-15] MEDS: HYDROmorphone 1 MG/ML 1 ML SYRINGE IVP PRN ×6 (02:18→21:11)
[2018-09-15] MEDS ORDERED: ACETAMINOPHEN TAB 325 MG TAB PO STA (02:21)
--- NOTE | 2018-09-15 08:21 | P.CRDCN ---
History of Present Illness Consult date: 09/15/18 Chief complaint: Chest pain History of present illness: This is a pleasant 63-year-old female patient with a past medical history significant for coronary artery disease and status post stenting was performed at [place] with unknown details, hypertension, dyslipidemia, and history of ovarian cancer who currently receiving chemotherapy, presented to the emergency room complaining of chest discomfort. The patient stated that she was in her [facility] state of health yesterday when she started experiencing discomfort in the mid of the chest, as a sharp kind of discomfort, without any radiation, and without any associated symptoms. Because of that she decided to come to the emergency room. The EKG showed sinus rhythm was nonspecific changes. The enzymes were checked and came in to be unremarkable. The chest x-ray did not show any acute abnormalities. The patient seems to be chest pain-free at this point. 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 Past Medical History Past Medical History: Cancer, Deep Vein Thrombosis (DVT) Additional Past Medical History / Comment(s): 2006 Ovarian cancer with surgery/chemo, reoccurrance ovarian cancer 08/2017 with abdominal mets and receiving chemo, recurrent admissions for UTI/SBO/Ureteral Obstruction in 2018, R leg DVT 2014, bilateral TMJ with surgery/pins.IBS History of Any Multi-Drug Resistant Organisms: VRE Date of last positivie culture/infection: 01/26/18 MDRO Source:: urine Past Surgical History: Heart Catheterization With Stent, Hysterectomy Additional Past Surgical History / Comment(s): ovarian cancer with bilateral oopherectomy/hysterectomy 2005; 2 open exploratory abdominal surgery, R chest mediport placed 2011, bilateral retrograde pyelogram cystoscopy with R ureter stent, jaws have pins d/t surgery for TMJ, colonoscopy Past Anesthesia/Blood Transfusion Reactions: No Reported Reaction Additional Past Anesthesia/Blood Transfusion Reaction / Comment(s): Pt has received blood in past without reaction. Date of Last Stent Placement:: 2011 Smoking Status: Never smoker - Past Family History Brother(s) Family Medical History: Cancer Additional Family Medical History / Comment(s): lung cancer- since passed Sister(s) Family Medical History: CVA/TIA Father Family Medical History: Dementia, Neurologic Disorder Additional Family Medical History / Comment(s): alzheimers Medications and Allergies Home Medications Medication Instructions Recorded Confirmed Type ALPRAZolam [Xanax] 0.25 mg PO HS PRN 08/25/14 09/14/18 History Diltiazem HCl [Diltiazem 24Hr ER] 120 mg PO DAILY 08/25/14 09/14/18 History Gabapentin [Neurontin] 300 mg PO TID 10/17/17 09/14/18 History Escitalopram [Lexapro] 20 mg PO DAILY 06/30/18 09/14/18 History Esomeprazole Magnesium [NexIUM] 20 mg PO DAILY 07/12/18 09/14/18 History Ondansetron HCl [Zofran] 8 mg PO Q8H PRN 09/14/18 09/14/18 History Tamsulosin [Flomax] 0.4 mg PO HS 09/14/18 09/14/18 History Zolpidem [Ambien] 5 mg PO HS 09/14/18 09/14/18 History Allergies Allergy/AdvReac Type Severity Reaction Status Date / Time adhesive Allergy Rash/Hives Verified 09/14/18 20:58 carboplatin Allergy Anaphylaxis Verified 09/14/18 20:58 iodine Allergy Rash/Hives Verified 09/14/18 20:58 Penicillins Allergy Rash/Hives Verified 09/14/18 20:58 codeine AdvReac Nausea & Verified 09/14/18 20:58 Vomiting morphine AdvReac Nausea & Verified 09/14/18 20:58 Vomiting Physical Exam Vitals: Vital Signs Temp Pulse Pulse Resp BP BP BP 09/15/18 08:00 98.3 F 67 17 92/55 09/15/18 04:00 98.5 F 72 16 107/54 09/15/18 03:12 16 09/15/18 00:00 16 09/14/18 23:50 98.5 F 66 16 126/68 09/14/18 21:15 16 09/14/18 20:30 98.4 F 63 16 129/71 09/14/18 20:04 98 16 124/60 09/14/18 18:41 64 16 139/58 09/14/18 17:04 98 F 77 18 114/60 Pulse Ox 09/15/18 08:00 95 09/15/18 04:00 96 09/15/18 03:12 09/15/18 00:00 09/14/18 23:50 97 09/14/18 21:15 09/14/18 20:30 97 09/14/18 20:04 97 09/14/18 18:41 98 09/14/18 17:04 100 Intake and Output 09/14/18 09/15/18 09/15/18 22:59 06:59 14:59 Other: Voiding Method Toilet Toilet # Voids 2 Weight 64.41 kg - Constitutional General appearance: no acute distress - Respiratory Respiratory: bilateral: CTA - Cardiovascular Rhythm: regular Heart sounds: normal: S1, S2 Results 09/14/18 17:45 09/14/18 17:45 Cardiac Enzymes 09/14/18 09/14/18 09/15/18 Range/Units 17:45 17:45 00:20 AST 16 (14-36) U/L Troponin I <0.012 <0.012 (0.000-0.034) ng/mL Coagulation 09/14/18 Range/Units 17:45 PT 9.9 (9.0-12.0) sec APTT 22.8 (22.0-30.0) sec CBC 09/14/18 Range/Units 17:45 WBC 5.1 (3.8-10.6) k/uL RBC 3.04 L (3.80-5.40) m/uL Hgb 10.7 L (11.4-16.0) gm/dL Hct 30.3 L (34.0-46.0) % Plt Count 145 L (150-450) k/uL Comprehensive Metabolic Panel 09/14/18 Range/Units 17:45 Sodium 139 (137-145) mmol/L Potassium 3.9 (3.5-5.1) mmol/L Chloride 107 (98-107) mmol/L Carbon Dioxide 26 (22-30) mmol/L BUN 21 H (7-17) mg/dL Creatinine 0.99 (0.52-1.04) mg/dL Glucose 132 H (74-99) mg/dL Calcium 9.3 (8.4-10.2) mg/dL AST 16 (14-36) U/L ALT 20 (9-52) U/L Alkaline Phosphatase 64 (38-126) U/L Total Protein 6.3 (6.3-8.2) g/dL Albumin 3.8 (3.5-5.0) g/dL Current Medications Generic Name Dose Route Start Last Admin Trade Name Freq PRN Reason Stop Dose Admin Aspirin 325 mg 09/15/18 09:00 Aspirin PO DAILY [facility] Diltiazem HCl 120 mg 09/15/18 09:00 Cardizem Cd PO DAILY [facility] Escitalopram Oxalate 20 mg 09/15/18 09:00 Lexapro PO DAILY [facility] Gabapentin 300 mg 09/14/18 22:00 09/14/18 22:08 Neurontin PO 300 mg TID CARMENZA Administration Hydromorphone HCl 1 mg 09/14/18 21:45 09/15/18 05:55 Dilaudid IVP 1 mg Q4HR PRN Administration Pain Nitroglycerin 0.4 mg 09/14/18 19:38 Nitrostat SUBLINGUAL Q5M PRN Chest Pain Ondansetron HCl 8 mg 09/14/18 22:00 Zofran Odt PO Q8H PRN Nausea Pantoprazole Sodium 40 mg 09/15/18 09:00 Protonix PO DAILY [facility] Tamsulosin HCl 0.4 mg 09/14/18 22:00 09/14/18 22:08 Flomax PO 0.4 mg HS CARMENZA Administration Zolpidem Tartrate 5 mg 09/14/18 21:45 09/14/18 22:12 Ambien PO 5 mg HS CARMENZA Administration Intake and Output 09/14/18 09/15/18 09/15/18 22:59 06:59 14:59 Other: Voiding Method Toilet Toilet # Voids 2 Weight 64.41 kg 09/14/18 17:45 09/14/18 17:45 Assessment and Plan Assessment: Assessment #1 chest discomfort #2 known CAD and prior stenting #3 history of ovarian cancer #4 hypertension [place] #5 dyslipidemia Plan next #1 consider conservative medical approach to we know the prognosis regarding the ovarian cancer #2 the patient was ruled out for acute coronary event #3 continue the current medical regimen #4 I advised to get the patient up and around and see if she develop any chest discomfort #5 obtain an echocardiogram was Doppler #6 monitor the patient for additional 24 hours #7 follow-up with the patient
[2018-09-15 08:49] LABS: Magnesium 1.6 mg/dL (1.6-2.3)
[2018-09-15] MEDS: DILTIAZEM CD 120 MG CAP.ER.24H PO SCH (09:24)
[2018-09-15] MEDS: ESCITALOPRAM 20 MG TAB PO SCH (09:24)
[2018-09-15] MEDS: PANTOPRAZOLE 40 MG TABLET PO SCH (09:24)
[2018-09-15] MEDS: GABAPENTIN 300 MG CAP PO SCH ×3 (09:24→21:10)
[2018-09-15] MEDS: ASPIRIN 325 MG TAB PO SCH (09:24)
[2018-09-15] MEDS: LEVOFLOXACIN 500 MG TAB PO SCH (11:08)
--- NOTE | 2018-09-15 17:40 | ECHOF ---
Referral Reason:chest pain MEASUREMENTS -------- HEIGHT: 165.1 cm WEIGHT: 64.9 kg BP: RVIDd: 3.6 cm (< 3.3) IVSd: 1.3 cm (0.6 - 1.1) LVIDd: 3.6 cm (3.9 - 5.3) LVPWd: 1.0 cm (0.6 - 1.1) IVSs: 1.5 cm LVIDs: 2.5 cm LVPWs: 1.3 cm LAESV Index (A-L): 31.37 ml/m Ao Diam: 3.0 cm (2.0 - 3.7) AV Cusp: 1.8 cm (1.5 - 2.6) LA Diam: 4.4 cm (2.7 - 3.8) MV EXCURSION: 20.477 mm (> 18.000) MV EF SLOPE: 67 mm/s (70 - 150) EPSS: 0.6 cm MV E Ferdinand: 0.47 m/s MV DecT: 190 ms MV A Ferdinand: 0.82 m/s MV E/A Ratio: 0.57 RAP: 5.00 mmHg RVSP: 25.10 mmHg FINDINGS -------- Sinus rhythm. This was a technically good study. LV size, wall thickness and systolic function are normal, with an EF greater than 55%. The left hernesto tricular size is normal. Overall left ventricular systolic function is normal with, an EF between 5 5 - 60 %. The right ventricle is normal in size. The left atrial size is normal. Normal LA size by volume 22+/-6 ml/m2. The right atrial size is normal. Interatrial and interventricular septum intact. The aortic valve is trileaflet, and appears structurally normal. No aortic stenosis or regurgitation. Mild mitral regurgitation is present. Mild tricuspid regurgitation present. There is no evidence of pulmonary hypertension. The right v entricular systolic pressure, as measured by Doppler, is 25.10mmHg. There is no pulmonic regurgitation present. The aortic root, ascending aorta and aortic arch are normal. Normal inferior vena cava with normal inspiratory collapse consistent with estimated right atrial pre ssure of 5 mmHg. There is no pericardial effusion. CONCLUSIONS -------- 1. LV size, wall thickness and systolic function are normal, with an EF greater than 55%. 2. The left ventricular size is normal. 3. Overall left ventricular systolic function is normal with, an EF between 55 - 60 %. 4. The right ventricle is normal in size. 5. The left atrial size is normal. 6. Normal LA size by volume 22+/-6 ml/m2. 7. The right atrial size is normal. 8. Interatrial and interventricular septum intact. 9. The aortic valve is trileaflet, and appears structurally normal. No aortic stenosis or regurgitati on. 10. Mild mitral regurgitation is present. 11. Mild tricuspid regurgitation present. 12. There is no evidence of pulmonary hypertension. 13. The right ventricular systolic pressure, as measured by Doppler, is 25.10mmHg. 14. There is no pulmonic regurgitation present. 15. The aortic root, ascending aorta and aortic arch are normal. 16. Normal inferior vena cava with normal inspiratory collapse consistent with estimated right atrial pressure of 5 mmHg. 17. There is no pericardial effusion. FLIGHT CONTROL SPECIALIST: Paige Dennis RDCS
[2018-09-15 19:44] VITALS: RESP 16
--- NOTE | 2018-09-15 20:09 | HP ---
HISTORY AND PHYSICAL CHIEF COMPLAINT: Chest pain. HISTORY OF PRESENT ILLNESS: This is another admission for this 63-year-old white female has terminal Ca of the ovary. This lady presented to the emergency room with chest pain and was admitted to rule out myocardial ischemia. She felt a tight feeling in her chest but no shortness of breath, diaphoresis, nausea, etc. She also is plagued with a chronic urinary tract infection related to obstructive right ureteropathy where she has a stent. She has had frequency, urgency, but no fever or chills. REVIEW OF SYSTEMS: She has had no other complaints. She has had no neurologic problems, cough, hemoptysis, palpitations, syncope, orthopnea, diarrhea, melena, hematochezia, etc. Past medical history, family history and personal and social history are all otherwise unremarkable or noncontributory and unchanged. PHYSICAL EXAMINATION: Blood pressure 141/80 with a pulse of 82, respirations of 35, and she is afebrile. GENERAL: She appeared to be pale and in no acute distress. Skin was dry and lymph nodes not enlarged. Head, ears, eyes, nose, mouth, and throat were normal. Neck veins not distended. Chest is clear. Cardiac exam is normal. Abdomen is soft and a little bit tender in the right upper and lower quadrants. Right flank was slightly tender. Neurologically is intact. She is admitted to the hospital with diagnoses: 1. Chest pain, probably noncardiac. 2. Carcinoma of the ovary. 3. Obstructive right ureteropathy. 4. Urinary tract infection. PLAN: 1. Bed rest. 2. IV fluids. 3. Serial EKGs and enzymes. 4. Treat urinary tract infection. 5. Cardiology consult. MMODL / IJN: [id number] /
--- NOTE | 2018-09-15 20:23 | PN ---
PROGRESS NOTE CHIEF COMPLAINT: Chest pain and urinary tract infection with CA of the ovary. HISTORY OF PRESENT ILLNESS: This lady's cardiac enzymes have been negative so far, but she has been seen by Cardiology and they have an echocardiogram ordered. She is asymptomatic otherwise. PHYSICAL EXAM: Chest is clear. Cardiac exam is normal. Abdomen is soft, nontender. IMPRESSION: 1. Chest pain, noncardiac. 2. Carcinoma of the ovary. 3. Urinary tract infection. PLAN: 1. [place] antibiotics. 2. Wait for echocardiogram. 3. Increase activity and probably home tomorrow. MMODL / IJN: [id number] /
[2018-09-15] MEDS: TAMSULOSIN 0.4 MG CAP.ER.24H PO SCH (21:10)
[2018-09-15] MEDS: ZOLPIDEM 5 MG TAB PO SCH (21:10)
[2018-09-16] MEDS: HYDROmorphone 1 MG/ML 1 ML SYRINGE IVP PRN ×2 (01:20→05:32)
[2018-09-16 07:35] VITALS: BP 109/66; PULSE 77; TEMP 98.4
--- NOTE | 2018-09-16 08:05 | P.PN ---
Subjective Progress Note Date: 09/16/18 Principal diagnosis: Chest pain This is a pleasant 63-year-old female patient with a past medical history significant for coronary artery disease and status post stenting was performed at [place] with unknown details, hypertension, dyslipidemia, and history of ovarian cancer who currently receiving chemotherapy, presented to the emergency room complaining of chest discomfort. The patient stated that she was in her usual state of health yesterday when she started experiencing discomfort in the mid of the chest, as a sharp kind of discomfort, without any radiation, and wit hout any associated symptoms. Because of that she decided to come to the emergency room. The EKG showed sinus rhythm was nonspecific changes. The enzymes were checked and came in to be unremarkable. The chest x-ray did not show any acute abnormalities. The patient seems to be chest pain-free at this point. 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 On follow-up with the patient today, September 162018, she is feeling better beach she did not have any episode of chest pain or chest discomfort. She was ruled out for acute coronary event. I did discuss with the patient the need to undergo stress test to rule out any severe underlying coronary artery disease. Since its a weekend, we come to stress test on the weekend, I did tell the patient either she can stated tomorrow to have the stress test or she can go home and have it as an outpatient. The patient would like to be discharged home. Objective - Vital Signs Vital signs: Vital Signs Temp 98.4 F 09/16/18 07:33 Pulse 77 09/16/18 07:33 Resp 16 09/16/18 07:33 BP 109/66 09/16/18 07:33 Pulse Ox 92 L 09/16/18 07:33 Intake & Output 09/15/18 09/16/18 09/16/18 18:59 06:59 18:59 Intake Total 442 120 Balance 442 120 Intake: Oral 442 120 Other: Voiding Method Toilet Toilet # Voids 1 2 - Constitutional General appearance: Present: no acute distress - Respiratory Respiratory: bilateral: CTA - Cardiovascular Rhythm: regular Heart sounds: normal: S1, S2 - Labs CBC & Chem 7: 09/14/18 17:45 09/14/18 17:45 Labs: Abnormal Lab Results - Last 24 Hours (Table) 09/15/18 Range/Units 08:13 Triglycerides 232 H (<150) mg/dL Cholesterol 231 H (<200) mg/dL LDL Cholesterol, Calc 146 H (0-99) mg/dL HDL Cholesterol 39 L (40-60) mg/dL Microbiology - Last 24 Hours (Table) 09/14/18 18:30 Urine Culture - Preliminary Urine,Voided Group D Enterococcus Assessment and Plan Assessment: Assessment #1 chest discomfort #2 known CAD and prior stenting #3 history of ovarian cancer #4 hypertension #5 dyslipidemia Plan next #1 the patient was ruled out for acute coronary event #2 get the patient up and around, if she is asymptomatic, she might be able to be discharged home Thank you for allowing us participate in her care
[2018-09-16] MEDS: LEVOFLOXACIN 500 MG TAB PO SCH (08:15)
[2018-09-16] MEDS: DILTIAZEM CD 120 MG CAP.ER.24H PO SCH (08:15)
[2018-09-16] MEDS: GABAPENTIN 300 MG CAP PO SCH (08:15)
[2018-09-16] MEDS: PANTOPRAZOLE 40 MG TABLET PO SCH (08:15)
[2018-09-16] MEDS: ESCITALOPRAM 20 MG TAB PO SCH (08:15)
[2018-09-16] MEDS: ASPIRIN 325 MG TAB PO SCH (08:15)
[2018-09-16] MEDS ORDERED: CEPHALEXIN 500 MG CAP PO SCH ×2 (13:00)
--- NOTE | 2018-09-18 08:18 | DS ---
DISCHARGE SUMMARY DATE OF SERVICE: 09/16/2018 CHIEF COMPLAINT: Chest pain. HISTORY OF PRESENT ILLNESS AND PHYSICAL EXAM: Details of this lady's history and physical can be found in the initial workup. LABORATORY STUDIES: While she was in a hospital she had laboratory studies, details of which can be found in the laboratory section of her chart. COURSE IN HOSPITAL: After admission she was placed on bedrest, started on intravenous fluids and had serial EKGs and enzymes. She was seen by Cardiology. She was found to have a urinary tract infection and she was started on antibiotics. It was felt by Cardiology that she could be discharged. She will go home on the and follow up in the office in several days. FINAL DIAGNOSES: 1. Chest pain, noncardiac. 2. Urinary tract infection. 3. Right ureteral stent for obstructive ureteropathy. 4. Carcinoma of the ovary. OPERATIONS: None. CONSULTATIONS: Cardiology. She is improved. MMODL / IJN: [id number] /
== END 2018-09-16 12:42 | disposition home or self-care (01) ==
LOC: EC 16:59 → 1SOBS 19:32
PROVIDERS: ADMIT Family Medicine; ATTEND Family Medicine
DX: R07.89 Other chest pain (principal); N39.0 Urinary tract infection, site not specified; I10 Essential (primary) hypertension; E78.5 Hyperlipidemia, unspecified; N13.5 Crossing vessel and stricture of ureter without hydronephrosis; I25.10 Atherosclerotic heart disease of native coronary artery without angina pectoris; Z95.5 Presence of coronary angioplasty implant and graft; Z86.718 Personal history of other venous thrombosis and embolism; C79.89 Secondary malignant neoplasm of other specified sites; I25.2 Old myocardial infarction; K58.9 Irritable bowel syndrome, unspecified; Z79.899 Other long term (current) drug therapy; Z85.43 Personal history of malignant neoplasm of ovary; Z90.710 Acquired absence of both cervix and uterus; Z80.1 Family history of malignant neoplasm of trachea, bronchus and lung; Z82.0 Family history of epilepsy and other diseases of the nervous system
CPT/HCPCS: 96365; 96376 ×3; 96375; 99285; 36415; 93005; 93306; 83880; 80061; 80053; 83735 ×2; 84484 ×2; 85025; 85610; 85730; 81001; 87086; 87077; 87186; 71046; G0378 ×3; J1170 ×4; J3475

== ENCOUNTER 2018-10-01 19:26 | Inpatient (IN) | payer MEDICARE ==
[2018-10-01] MEDS ORDERED: HYDROmorphone 1 MG/ML 1 ML SYRINGE IVP STA (20:10)
[2018-10-01] MEDS ORDERED: SODIUM CHLORIDE 0.9% 500 ML 500 ML IV ONE (20:10)
--- NOTE | 2018-10-01 20:18 | ED ---
General Adult HPI - General Source: patient, RN notes reviewed, old records reviewed Mode of arrival: ambulatory Limitations: no limitations <Kwabena Garcia - Last Filed: 10/01/18 20:17> <Jeannie Carballo - Last Filed: 10/01/18 23:27> - General Chief complaint: Urogenital Stated complaint: Poss UTI Time Seen by Provider: 10/01/18 19:47 - History of Present Illness Initial comments: 63-year-old female presents for evaluation of dysuria, urinary frequency, right flank pain. Patient has recent diagnosis of UTI, she was started on nitrofurantoin she completed her last dose today. Despite antibiotic treatment she's had recurrence of dysuria or urinary frequency. She has developed right flank pain. She was told by her primary care physician that she will likely need ID evaluation for recurrent UTI. She is currently being treated for ovarian cancer, she received her last chemotherapy approximately one week ago. She has had nausea with no vomiting. She's had diarrhea. Denies fever or chills. Denies chest pain or dyspnea. (Kwabena Garcia) - Related Data Home Medications Medication Instructions Recorded Confirmed ALPRAZolam [Xanax] 0.25 mg PO HS PRN 08/25/14 10/01/18 Diltiazem HCl [Diltiazem 24Hr ER] 120 mg PO DAILY 08/25/14 10/01/18 Gabapentin [Neurontin] 300 mg PO TID 10/17/17 10/01/18 Escitalopram [Lexapro] 20 mg PO DAILY 06/30/18 10/01/18 Esomeprazole Magnesium [NexIUM] 20 mg PO DAILY 07/12/18 10/01/18 Ondansetron HCl [Zofran] 8 mg PO Q8H PRN 09/14/18 10/01/18 Tamsulosin [Flomax] 0.4 mg PO HS 09/14/18 10/01/18 Zolpidem [Ambien] 5 mg PO HS 09/14/18 10/01/18 Allergies Allergy/AdvReac Type Severity Reaction Status Date / Time adhesive Allergy Rash/Hives Verified 10/01/18 20:04 carboplatin Allergy Anaphylaxis Verified 10/01/18 20:04 iodine Allergy Rash/Hives Verified 10/01/18 20:04 Penicillins Allergy Rash/Hives Verified 10/01/18 20:04 codeine AdvReac Nausea & Verified 10/01/18 20:04 Vomiting morphine AdvReac Nausea & Verified 10/01/18 20:04 Vomiting Review of Systems ROS Other: All systems not noted in ROS Statement are negative. <Kwabena Garcia - Last Filed: 10/01/18 20:17> ROS Other: All systems not noted in ROS Statement are negative. <Jeannie Carballo P - Last Filed: 10/01/18 23:27> ROS Statement: Those systems with pertinent positive or pertinent negative responses have been documented in the HPI. Past Medical History Past Medical History: Cancer, Deep Vein Thrombosis (DVT) Additional Past Medical History / Comment(s): 2006 Ovarian cancer with surgery/chemo, reoccurrance ovarian cancer 08/2017 with abdominal mets and receiving chemo, recurrent admissions for UTI/SBO/Ureteral Obstruction in 2017, R leg DVT 2014, bilateral TMJ with surgery/pins.IBS History of Any Multi-Drug Resistant Organisms: VRE Date of last positivie culture/infection: 01/26/18 MDRO Source:: urine Past Surgical History: Heart Catheterization With Stent, Hysterectomy Additional Past Surgical History / Comment(s): ovarian cancer with bilateral oopherectomy/hysterectomy 2005; 2 open exploratory abdominal surgery, R chest mediport placed 2011, bilateral retrograde pyelogram cystoscopy with R ureter stent, jaws have pins d/t surgery for TMJ, colonoscopy Past Anesthesia/Blood Transfusion Reactions: No Reported Reaction Additional Past Anesthesia/Blood Transfusion Reaction / Comment(s): Pt has received blood in past without reaction. Date of Last Stent Placement:: 2011 Past Psychological History: Anxiety, Depression Smoking Status: Never smoker Past Alcohol Use History: None Reported Past Drug Use History: None Reported - Past Family History Brother(s) Family Medical History: Cancer Additional Family Medical History / Comment(s): lung cancer- since passed Sister(s) Family Medical History: CVA/TIA Father Family Medical History: Dementia, Neurologic Disorder Additional Family Medical History / Comment(s): alzheimers <Kwabena Garcia N - Last Filed: 10/01/18 20:17> General Exam Limitations: no limitations General appearance: alert, in no apparent distress Eye exam: Present: normal appearance, PERRL ENT exam: Present: mucous membranes dry Neck exam: Present: normal inspection. Absent: tenderness, meningismus Respiratory exam: Present: normal lung sounds bilaterally. Absent: respiratory distress, wheezes Cardiovascular Exam: Present: regular rate, normal rhythm GI/Abdominal exam: Present: soft. Absent: distended, tenderness Extremities exam: Present: normal inspection, normal capillary refill. Absent: pedal edema Back exam: Present: normal inspection, full ROM. Absent: CVA tenderness (R), CVA tenderness (L) Neurological exam: Present: alert, oriented X3, CN II-XII intact. Absent: motor sensory deficit Psychiatric exam: Present: normal affect, normal mood Skin exam: Present: warm, dry, intact. Absent: cyanosis, diaphoretic <Kwabena Garcia - Last Filed: 10/01/18 20:17> Course Vital Signs 10/01/18 10/01/18 19:35 22:17 Temperature 98.5 F Pulse Rate 73 62 Respiratory 18 20 Rate Blood Pressure 113/74 121/67 O2 Sat by Pulse 98 98 Oximetry Medical Decision Making - Lab Data Result diagrams: 10/01/18 20:59 10/01/18 20:59 <Jeannie Carballo - Last Filed: 10/01/18 23:27> - Medical Decision Making Patient care was signed out to me by Dr. Lora acharya, patient had presented to the emergency department with complaints of continued lower urinary tract symptoms despite being compliant with her recent antibiotic of Macrobid. Patient is currently undergoing chemotherapy for ovarian cancer in addition the patient also has an indwelling ureteral stent from previous obstruction. A full sepsis workup and computed tomography scan were ordered patient was given a dose of vancomycin. Labs revealed pancytopenia, urinalysis reveals persistent urinary tract infection computed tomography scan had no signs of abscess or infection there was clearing of the previously identified hydronephrosis. Given that the patient is a current immunosuppressive chemotherapy patient with a persistent urinary tract infection that failed outpatient treatment decision was made to admit the patient for round the clock antibiotic treatment. Patient care was discussed with her primary care physician Dr. Jono dupont who accepts the admission (Jeannie Carballo) - Lab Data Lab Results 10/01/18 10/01/18 10/01/18 Range/Units 20:02 20:59 20:59 WBC 3.5 L (3.8-10.6) k/uL RBC 2.99 L (3.80-5.40) m/uL Hgb 10.3 L (11.4-16.0) gm/dL Hct 29.4 L (34.0-46.0) % MCV 98.4 (80.0-100.0) fL MCH 34.5 (25.0-35.0) pg MCHC 35.1 (31.0-37.0) g/dL RDW 13.3 (11.5-15.5) % Plt Count 120 L (150-450) k/uL Neutrophils % 52 % Lymphocytes % 40 % Monocytes % 2 % Eosinophils % 3 % Basophils % 1 % Neutrophils # 1.8 (1.3-7.7) k/uL Lymphocytes # 1.4 (1.0-4.8) k/uL Monocytes # 0.1 (0-1.0) k/uL Eosinophils # 0.1 (0-0.7) k/uL Basophils # 0.0 (0-0.2) k/uL Sodium 139 (137-145) mmol/L Potassium 3.9 (3.5-5.1) mmol/L Chloride 106 (98-107) mmol/L Carbon Dioxide 26 (22-30) mmol/L Anion Gap 7 mmol/L BUN 26 H (7-17) mg/dL Creatinine 0.90 (0.52-1.04) mg/dL Est GFR (CKD-EPI)AfAm 78 (>60 ml/min/1.73 sqM) Est GFR (CKD-EPI)NonAf 68 (>60 ml/min/1.73 sqM) Glucose 116 H (74-99) mg/dL Plasma Lactic Acid Chad (0.7-2.0) mmol/L Calcium 8.6 (8.4-10.2) mg/dL Total Bilirubin 0.3 (0.2-1.3) mg/dL AST 16 (14-36) U/L ALT 11 (9-52) U/L Alkaline Phosphatase 62 (38-126) U/L Total Protein 6.1 L (6.3-8.2) g/dL Albumin 3.5 (3.5-5.0) g/dL Urine Color Light Red Urine Appearance Cloudy H (Clear) Urine pH 5.5 (5.0-8.0) Ur Specific [place] 1.024 (1.001-1.035) Urine Protein 1+ H (Negative) Urine Glucose (UA) Negative (Negative) Urine Ketones Negative (Negative) Urine Blood Large H (Negative) Urine Nitrite Negative (Negative) Urine Bilirubin Negative (Negative) Urine Urobilinogen <2.0 (<2.0) mg/dL Ur Leukocyte Esterase Large H (Negative) Urine RBC >182 H (0-5) /hpf Urine WBC 89 H (0-5) /hpf Ur Squamous Epith Cells 2 (0-4) /hpf Urine Bacteria Rare H (None) /hpf Urine Mucus Rare H (None) /hpf 10/01/18 Range/Units 20:59 WBC (3.8-10.6) k/uL RBC (3.80-5.40) m/uL Hgb (11.4-16.0) gm/dL Hct (34.0-46.0) % MCV (80.0-100.0) fL MCH (25.0-35.0) pg MCHC (31.0-37.0) g/dL RDW (11.5-15.5) % Plt Count (150-450) k/uL Neutrophils % % Lymphocytes % % Monocytes % % Eosinophils % % Basophils % % Neutrophils # (1.3-7.7) k/uL Lymphocytes # (1.0-4.8) k/uL Monocytes # (0-1.0) k/uL Eosinophils # (0-0.7) k/uL Basophils # (0-0.2) k/uL Sodium (137-145) mmol/L Potassium (3.5-5.1) mmol/L Chloride (98-107) mmol/L Carbon Dioxide (22-30) mmol/L Anion Gap mmol/L BUN (7-17) mg/dL Creatinine (0.52-1.04) mg/dL Est GFR (CKD-EPI)AfAm (>60 ml/min/1.73 sqM) Est GFR (CKD-EPI)NonAf (>60 ml/min/1.73 sqM) Glucose (74-99) mg/dL Plasma Lactic Acid Chad 1.5 (0.7-2.0) mmol/L Calcium (8.4-10.2) mg/dL Total Bilirubin (0.2-1.3) mg/dL AST (14-36) U/L ALT (9-52) U/L Alkaline Phosphatase (38-126) U/L Total Protein (6.3-8.2) g/dL Albumin (3.5-5.0) g/dL Urine Color Urine Appearance (Clear) Urine pH (5.0-8.0) Ur Specific [place] (1.001-1.035) Urine Protein (Negative) Urine Glucose (UA) (Negative) Urine Ketones (Negative) Urine Blood (Negative) Urine Nitrite (Negative) Urine Bilirubin (Negative) Urine Urobilinogen (<2.0) mg/dL Ur Leukocyte Esterase (Negative) Urine RBC (0-5) /hpf Urine WBC (0-5) /hpf Ur Squamous Epith Cells (0-4) /hpf Urine Bacteria (None) /hpf Urine Mucus (None) /hpf Disposition <Kwabena Garcia N - Last Filed: 10/01/18 20:17> <Jeannie Carballo P - Last Filed: 10/01/18 23:27> Clinical Impression: UTI (urinary tract infection), Cancer associated pain, Antineoplastic chemotherapy induced anemia Disposition: ADMITTED IP TO THIS HOSP Condition: Stable Referrals: Kevin Metzger MD [Primary Care Provider] - 1-2 days
[2018-10-01 20:27] LABS: Appearance,Urine Cloudy (Clear); Bacteria,Urine Rare /hpf; Bilirubin,Urine Negative (Negative); Blood,Urine Large (Negative); Color,Urine Light Red; Glucose,Urine (UA) Negative (Negative); Ketones,Urine Negative (Negative); Leukocyte Esterase,Urine Large (Negative); Mucus,Urine Rare /hpf; Nitrite,Urine Negative (Negative); PH, Urine 5.5 (5.0-8.0); Protein,Urine 1+ (Negative); RBC,Urine >182 /hpf (0-5); Specific Gravity,Urine 1.024 (1.001-1.035); Squamous Epithelial Cell,Urine 2 /hpf (0-4); Urobilinogen,Urine <2.0 mg/dL (<2.0); WBC,Urine 89 /hpf (0-5)
[2018-10-01] MEDS ORDERED: VANCOMYCIN IV PER PHARMACY 1 EACH MISC MISCELLANE PRN (21:06)
[2018-10-01 21:12] LABS: Basophils % (A) 1 %; Eosinophils # (A) 0.1 k/uL (0-0.7); Eosinophils % (A) 3 %; HCT 29.4 % (34.0-46.0); HGB 10.3 gm/dL (11.4-16.0); Lymphocytes # (A) 1.4 k/uL (1.0-4.8); Lymphocytes % (A) 40 %; MCH 34.5 pg (25.0-35.0); MCHC 35.1 g/dL (31.0-37.0); MCV 98.4 fL (80.0-100.0); Monocytes # (A) 0.1 k/uL (0-1.0); Monocytes % (A) 2 %; Neutrophils # (A) 1.8 k/uL (1.3-7.7); Neutrophils % (A) 52 %; Platelet Count 120 k/uL (150-450); RBC 2.99 m/uL (3.80-5.40); RDW 13.3 % (11.5-15.5); WBC 3.5 k/uL (3.8-10.6)
[2018-10-01] MEDS ORDERED: VANCOMYCIN 1,500 MG in SODIUM CHLORIDE 0.9% 250 ML IVPB STA (21:12)
--- NOTE | 2018-10-01 21:13 | XR ---
EXAMINATION TYPE: XR KUB DATE OF EXAM: 10/01/2018 COMPARISON: 06/30/2018 HISTORY: Dysuria TECHNIQUE: 2 views upright FINDINGS: There is right-sided double-J ureteral stent that appears in good position. There are clips apparently from cholecystectomy. Bowel gas pattern is normal. Lung bases are clear. There are surgic al clips over the mid pelvis. There are multiple surgical clips in the left paraspinal mid abdomen. IMPRESSION: Ureteral stent unchanged in position compared to old exam. Nonacute abdomen.
[2018-10-01 21:19] LABS: Albumin 3.5 g/dL (3.5-5.0); Calcium 8.6 mg/dL (8.4-10.2); Potassium 3.9 mmol/L (3.5-5.1); Total Bilirubin 0.3 mg/dL (0.2-1.3); Total Protein 6.1 g/dL (6.3-8.2)
--- NOTE | 2018-10-01 21:57 | CT ---
EXAMINATION TYPE: CT abdomen pelvis wo con DATE OF EXAM: 10/01/2018 COMPARISON: 06/30/2018 HISTORY: Right flank pain. Hx of ovarian CA CT DLP: 406.7 mGycm Automated exposure control for dose reduction was used. TECHNIQUE: Helical acquisition of images was performed from the lung bases through the pelvis. FINDINGS: Lung bases are clear. There is no pleural effusion. There is no pericardial effusion. Liver spleen st omach pancreas appear normal. There are clips from cholecystectomy. Bile ducts are not dilated. There is no adrenal mass. There is a right-sided ureteral stent. Stent appears in good position. Ther e is no hydronephrosis. Ureters are not dilated. There is no retroperitoneal adenopathy. Bladder dist ends smoothly. There is no evidence of a pelvic mass. There are surgical clips in the pelvis. There i s no mesenteric edema. I see no evidence of a bowel obstruction. There is no free air. There is no as cites. There is no inguinal hernia. Appendix is not seen. There is no sign of thickened appendix. Lumbar spine is intact. I see no bony destructive process. IMPRESSION: RIGHT URETERAL STENT APPEARS IN GOOD POSITION. THERE IS NO HYDRONEPHROSIS. THERE IS CLEARING OF RIGHT -SIDED HYDRONEPHROSIS COMPARED TO OLD EXAM. No sign of acute abdomen and pelvis.
[2018-10-01] MEDS ORDERED: ALPRAZolam 0.25 MG TAB PO PRN (23:19)
[2018-10-01] MEDS ORDERED: ACETAMINOPHEN TAB 325 MG TAB PO PRN (23:20)
[2018-10-01] MEDS ORDERED: NALOXONE 0.4 MG/ML 1 ML VIAL IV PRN (23:20)
[2018-10-01] MEDS ORDERED: IBUPROFEN 400 MG TAB PO PRN (23:20)
[2018-10-01] MEDS: HYDROmorphone 1 MG/ML 1 ML SYRINGE IVP PRN (23:35)
[2018-10-02] MEDS ORDERED: diphenhydrAMINE 50 MG/ML 1 ML VIAL IVP STA (00:13)
[2018-10-02 00:46] VITALS: BMI 23.1
[2018-10-02] MEDS: ZOLPIDEM 5 MG TAB PO SCH ×2 (00:55→20:28)
[2018-10-02] MEDS: HYDROmorphone 1 MG/ML 1 ML SYRINGE IVP PRN ×6 (03:07→21:31)
[2018-10-02] MEDS: GABAPENTIN 300 MG CAP PO SCH ×3 (07:59→20:28)
[2018-10-02] MEDS: PANTOPRAZOLE 40 MG TABLET PO SCH (07:59)
[2018-10-02] MEDS: DILTIAZEM CD 120 MG CAP.ER.24H PO SCH (07:59)
[2018-10-02] MEDS: ESCITALOPRAM 20 MG TAB PO SCH (07:59)
[2018-10-02] MEDS ORDERED: ONDANSETRON 4 MG TAB PO PRN (09:02)
[2018-10-02] MEDS: VANCOMYCIN 1,250 MG in SODIUM CHLORIDE 0.9% 250 ML IVPB SCH ×2 (10:02→21:33)
--- NOTE | 2018-10-02 12:11 | P.CRDCN ---
History of Present Illness History of present illness: This is a pleasant 63-year-old female past medical history significant for ovarian cancer for chemotherapy, hypertension, history of coronary artery disease status post stent placement and dyslipidemia. She recently established in the office with Dr. Tate and is scheduled to undergo outpatient coronary angiography on Monday secondary to symptoms of exertional chest discomfort. She was seen in evaluation and observation unit earlier this month and was diagnosed with urinary tract infection. Since that time she has been having ongoing painful urination with lower back discomfort. She presented to the hospital and was found to have ongoing urinary tract infection failing outpatient treatment. She is seen and examined resting comfortably in bed in no acute distress. She denies any ongoing symptoms of exertional chest discomfort or shortness of breath. She is lying flat in bed in no respiratory distress. She states she can feel her heart beating fast at times does not cause any chest discomfort, shortness of breath or dizziness. Imaging performed reveals a patent right ureteral stent with improving hydronephrosis. No EKG or chest x-ray obtained. Laboratory data reviewed, WBC 3.5, hemoglobin 10.9, platelets 120, sodium 139, potassium 3.9, creatinine 0.9. Current cardiac medications include diltiazem 120 mg daily. Echocardiogram obtained earlier this month reveals preserved LV systolic function with ejection fraction 55-60% with mild tricuspid regurg itation and mild mitral regurgitation. At the time of my exam: CONSTITUTIONAL: Denies fever. Denies chills. EYES: Denies blurred vision. Denies vision changes. Denies eye pain. EARS, NOSE, MOUTH & THROAT: Denies headache. Denies sore throat. Denies ear pain. CARDIOVASCULAR: Denies chest pain. Denies shortness of breath. Denies orthopnea. Denies PND. Denies palpitations. RESPIRATORY: Denies cough. GASTROINTESTINAL: Denies abdominal pain. Denies diarrhea. Denies constipation. Denies nausea. Denies vomiting. MUSCULOSKELETAL: Complains of low Back discomfort. INTEGUMENTARY: Denies pruitis. Denies rash. NEUROLOGIC: Denies numbness. Denies tingling. Denies weakness. PSYCHIATRIC: Denies anxiety. Denies depression. ENDOCRINE: Denies fatigue. Denies weight change. Denies polydipsia. Denies polyurina. GENITOURINARY: Denies burning, hematuria or urgency with micturation. Complains of painful urination. HEMATOLOGIC: Denies history of anemia. Denies bleeding. Blood pressure 100/52 heart rate 70 afebrile maintaining oxygen saturation on room air GENERAL: This is a 63-year-old female in no apparent distress at the time of my examination. HEENT: Head is atraumatic, normocephalic. Pupils are equal, round. Sclerae anicteric. Conjunctivae are clear. Mucous membranes of the mouth are moist. Neck is supple. There is no jugular venous distention. No carotid bruit is heard. LUNGS: Clear to auscultation no wheezes, rales or rhonchi. No chest wall tenderness is noted on palpation or with deep breathing. HEART: Regular rate and rhythm with faint systolic ejection murmur at the left sternal border, no rubs or gallops. S1 and S2 heard. ABDOMEN: Soft, nontender. Bowel sounds are heard. No organomegaly noted. EXTREMITIES: No evidence of peripheral edema and no calf tenderness noted. VASCULAR: Radial and dorsalis pedis pulses palpated, no evidence of clubbing. NEUROLOGIC: Patient is awake, alert and oriented x3. ASSESSMENT Urinary tract infection, failed outpatient therapy Ovarian cancer Evaluation for cardiac catheterization Hypertension PLAN Pt is seen and examined in no acute distress with no symptoms suggestive of angina. Catheterization will be cancelled for Monday due to ongoing infection. This has been explained to the patient. Follow up with Dr. Tate upon discharge for rescheduling of procedure once infection has resolved. Initiate on aspirin 81 mg daily. Thank you kindly for this consultation. Nurse Practitioner note has been reviewed, I agree with a documented findings and plan of care. Patient was seen and examined. Past Medical History Past Medical History: Cancer, Deep Vein Thrombosis (DVT) Additional Past Medical History / Comment(s): 2006 Ovarian cancer with surgery/chemo, reoccurrance ovarian cancer 08/2017 with abdominal mets and receiving chemo, recurrent admissions for UTI/SBO/Ureteral Obstruction in 2018, R leg DVT 2014, bilateral TMJ with surgery/pins.IBS History of Any Multi-Drug Resistant Organisms: VRE Date of last positivie culture/infection: 01/26/18 MDRO Source:: urine Past Surgical History: Heart Catheterization With Stent, Hysterectomy Additional Past Surgical History / Comment(s): ovarian cancer with bilateral oopherectomy/hysterectomy 2005; 2 open exploratory abdominal surgery, R chest mediport placed 2011, bilateral retrograde pyelogram cystoscopy with R ureter stent, jaws have pins d/t surgery for TMJ, colonoscopy Past Anesthesia/Blood Transfusion Reactions: No Reported Reaction Additional Past Anesthesia/Blood Transfusion Reaction / Comment(s): Pt has received blood in past without reaction. Date of Last Stent Placement:: 2011 Past Psychological History: Anxiety, Depression Smoking Status: Never smoker Past Alcohol Use History: None Reported Additional Past Alcohol Use History / Comment(s): Patient is been a lifelong nonsmoker. She lives at home with her friend and a dog. Past Drug Use History: None Reported - Past Family History Mother Family Medical History: Diabetes Mellitus Brother(s) Family Medical History: Cancer Additional Family Medical History / Comment(s): lung cancer- since passed Sister(s) Family Medical History: CVA/TIA Father Family Medical History: Dementia, Neurologic Disorder Additional Family Medical History / Comment(s): alzheimers Medications and Allergies Home Medications Medication Instructions Recorded Confirmed Type ALPRAZolam [Xanax] 0.25 mg PO HS PRN 08/25/14 10/01/18 History Diltiazem HCl [Diltiazem 24Hr ER] 120 mg PO DAILY 08/25/14 10/01/18 History Gabapentin [Neurontin] 300 mg PO TID 10/17/17 10/01/18 History Escitalopram [Lexapro] 20 mg PO DAILY 06/30/18 10/01/18 History Esomeprazole Magnesium [NexIUM] 20 mg PO DAILY 07/12/18 10/01/18 History Ondansetron HCl [Zofran] 8 mg PO Q8H PRN 09/14/18 10/01/18 History Tamsulosin [Flomax] 0.4 mg PO HS 09/14/18 10/01/18 History Zolpidem [Ambien] 5 mg PO HS 09/14/18 10/01/18 History Allergies Allergy/AdvReac Type Severity Reaction Status Date / Time adhesive Allergy Rash/Hives Verified 10/01/18 20:04 carboplatin Allergy Anaphylaxis Verified 10/01/18 20:04 iodine Allergy Rash/Hives Verified 10/01/18 20:04 Penicillins Allergy Rash/Hives Verified 10/01/18 20:04 codeine AdvReac Nausea & Verified 10/01/18 20:04 Vomiting morphine AdvReac Nausea & Verified 10/01/18 20:04 Vomiting Physical Exam Vitals: Vital Signs Temp Pulse Pulse Resp BP BP Pulse Ox 10/02/18 04:36 98.6 F 70 18 100/52 95 10/02/18 00:32 98.4 F 71 18 150/82 99 10/01/18 23:33 98.2 F 78 18 140/92 98 10/01/18 22:17 62 20 121/67 98 10/01/18 19:35 98.5 F 73 18 113/74 98 Intake and Output 10/01/18 10/02/18 10/02/18 22:59 06:59 14:59 Other: Voiding Method Toilet Toilet # Voids 1 1 Weight 63.503 kg Results 10/01/18 20:59 10/01/18 20:59 Cardiac Enzymes 10/01/18 Range/Units 20:59 AST 16 (14-36) U/L CBC 10/01/18 Range/Units 20:59 WBC 3.5 L (3.8-10.6) k/uL RBC 2.99 L (3.80-5.40) m/uL Hgb 10.3 L (11.4-16.0) gm/dL Hct 29.4 L (34.0-46.0) % Plt Count 120 L (150-450) k/uL Comprehensive Metabolic Panel 10/01/18 Range/Units 20:59 Sodium 139 (137-145) mmol/L Potassium 3.9 (3.5-5.1) mmol/L Chloride 106 (98-107) mmol/L Carbon Dioxide 26 (22-30) mmol/L BUN 26 H (7-17) mg/dL Creatinine 0.90 (0.52-1.04) mg/dL Glucose 116 H (74-99) mg/dL Calcium 8.6 (8.4-10.2) mg/dL AST 16 (14-36) U/L ALT 11 (9-52) U/L Alkaline Phosphatase 62 (38-126) U/L Total Protein 6.1 L (6.3-8.2) g/dL Albumin 3.5 (3.5-5.0) g/dL Current Medications Generic Name Dose Route Start Last Admin Trade Name Freq PRN Reason Stop Dose Admin Acetaminophen 650 mg 10/01/18 23:20 Tylenol Tab PO Q6HR PRN Mild Pain or Fever > 100.5 Alprazolam 0.25 mg 10/01/18 23:19 Xanax PO HS PRN Anxiety Diltiazem HCl 120 mg 10/02/18 09:00 10/02/18 07:59 Cardizem Cd PO 120 mg DAILY CARMENZA Administration Escitalopram Oxalate 20 mg 10/02/18 09:00 10/02/18 07:59 Lexapro PO 20 mg DAILY CARMENZA Administration Gabapentin 300 mg 10/02/18 09:00 10/02/18 07:59 Neurontin PO 300 mg TID CARMENZA Administration Hydromorphone HCl 0.5 mg 10/01/18 23:20 10/02/18 11:26 Dilaudid IVP 0.5 mg Q3HR PRN Administration Severe Pain Vancomycin HCl 1,250 mg/ 250 mls @ 125 mls/hr 10/02/18 10:00 10/02/18 10:02 Sodium Chloride IVPB 125 mls/hr Q12H CARMENZA Administration Ibuprofen 400 mg 10/01/18 23:20 Motrin PO Q6HR PRN Mild Pain or Fever > 100.5 Miscellaneous Information 1 each 10/01/18 21:06 Pharmacy To Dose Iv Vancomycin MISCELLANE DIRECTED PRN Per Protocol Naloxone HCl 0.2 mg 10/01/18 23:20 Narcan IV Q2M PRN Opioid Reversal Ondansetron HCl 4 mg 10/02/18 09:02 Zofran PO Q6HR PRN Nausea And Vomiting Pantoprazole Sodium 40 mg 10/02/18 07:30 10/02/18 07:59 Protonix PO 40 mg DAILY@0730 CARMENZA Administration Tamsulosin HCl 0.4 mg 10/02/18 21:00 Flomax PO HS CARMENZA Zolpidem Tartrate 5 mg 10/01/18 23:30 10/02/18 00:55 Ambien PO 5 mg HS CARMENZA Administration Intake and Output 10/01/18 10/02/18 10/02/18 22:59 06:59 14:59 Other: Voiding Method Toilet Toilet # Voids 1 1 Weight 63.503 kg 10/01/18 20:59 10/01/18 20:59
[2018-10-02] MEDS: ASPIRIN 81 MG PO SCH (12:37)
--- NOTE | 2018-10-02 17:36 | HP ---
HISTORY AND PHYSICAL CHIEF COMPLAINT: Right flank pain, dysuria, and right abdominal pain with urinary tract infection. HISTORY OF PRESENT ILLNESS: This is another admission for this 63-year-old white female with metastatic ovarian carcinoma who continually is having difficulty with urinary symptoms. The issue is that she has a stent in the right ureter and is growing bacteria that are resistant to everything. They can be taken orally. She is sensitive to nitrofurantoin was on it, but as soon as she stopped it, symptoms came back. She will require long-term IV antibiotic management, I suspect. REVIEW OF SYSTEMS: She has had no fever, chills, neurologic problems, shortness of breath, chest pain, cough, murmurs, rheumatic fever, nausea, vomiting, hematemesis, melena, hematochezia, jaundice, and etc. Past medical history, family history and personal and social histories are all otherwise unremarkable and unchanged or noncontributory. SHE IS ALLERGIC TO CARBOPLATIN, CLINDAMYCIN, IODINE, PENICILLIN AND CODEINE. MEDICATIONS: She is on tamsulosin 0.4 q.h.s., vitamin B12 1000 mcg once a month, zolpidem 5 mg q.h.s., Myrbetriq 25 mg once a day, citalopram 20 mg once a day, Xanax 0.25 t.i.d. p.r.n., [place] 5 q4h p.r.n., Nexium 20 mg once a day, gabapentin 300 mg 3 times a day, iron, and diltiazem 120 mg once a day. PHYSICAL EXAMINATION: VITAL SIGNS: Blood pressure is 105/60 with a pulse of 88, respirations 16, she is afebrile. GENERAL: In general, she appeared to be pale and chronically ill. HEENT: Head, ears, eyes, nose, mouth, and throat were normal. NECK: Neck veins not distended. Thyroid was not enlarged. CHEST: Chest is clear. CARDIOVASCULAR: Cardiac exam is normal sinus rhythm. ABDOMEN: Abdomen is soft and she has a little bit of tenderness in the right upper quadrant. There is a fullness and abdominal fullness on a manual exam in the lower abdomen. Bowel sounds are present. EXTREMITIES: Normal. NEUROLOGICAL: Intact. She is admitted to the hospital with a diagnoses: ADMISSION DIAGNOSES: 1. Chronic resistant urinary tract infection. 2. Right ureteral stent. 3. Advanced carcinoma of the ovary. 4. Hypertension. PLAN: 1. Bed rest. 2. IV fluids. 3. Cultures. 4. Consult with Infectious Disease for long-term IV antibiotic management. JENAL / IJN: [id number] /
--- NOTE | 2018-10-02 17:57 | PN ---
PROGRESS NOTE DATE OF SERVICE: 10/02/2018. CHIEF COMPLAINT: Right flank and right abdominal pain with chronic UTI. HISTORY OF PRESENT ILLNESS: This lady is slightly nauseated. She still has back pain, frequency and dysuria. PHYSICAL EXAM: Her abdomen is slightly tender on the right side. Chest is clear. Cardiac exam is normal. IMPRESSION: 1. Chronic urinary tract infection with antibiotic resistant bacteria. 2. Right ureteral obstruction with stent. 3. Ovarian carcinoma. PLAN: Consult Infectious Disease for IV antibiotic regimen and probable PICC line. MMODL / IJN: [id number] /
[2018-10-02] MEDS ORDERED: diphenhydrAMINE 25 MG CAP PO PRN (19:02)
[2018-10-02] MEDS: TAMSULOSIN 0.4 MG CAP.ER.24H PO SCH (20:28)
--- NOTE | 2018-10-02 22:53 | P.CONS ---
History of Present Illness - Reason for Consult Consult date: 10/02/18 - Chief Complaint Fever - History of Present Illness 63-year-old woman who has a history of ovarian carcinoma currently receiving chemotherapy in the outpatient setting. It's been approximately a week since her last chemotherapy has now developed evidence of fever and malaise dysuria and worsening flank pain to the right. The patient has a known history of abdominal mass causing renal obstruction. Earlier in the year she had ureteral stent placed because of obstruction to the right ureter. Apparently this eventually improved but did have a replacement of the stent. Some are recently the stent was removed with evidence of good resolution of her hydronephrosis. Patient however now presents complaining feeling very poorly with fever malaise dysuria and flank pain. Review of Systems HEENT:Denies headache or acute visual change. Denies sinus or mouth disc omforts. Denies neck stiffness or pain. Denies significant oral cavity pain. Denies difficulty on swallowing. Lungs: Denies significant shortness of breath, cough, sputum production, or hemoptysis. Cardiovascular: Denies significant shortness of breath, chest pain, chest wall pain, orthopnea, dyspnea on exertion, syncope Gastrointestinal:Denies nausea, vomiting, diarrhea, constipation, hematemesis, melena, hematochezia. No no significant change of bowel habit noticed. Does complain of some abdominal pain especially to the right flank Musculoskeletal: denies significant myalgias or arthralgias. No new joint swelling. Denies new back pain. Skin: Denies new rash or lesions. No new ulcers or wounds are related.. Neuro: Denies headache or visual change. Denies any new onset weakness or difficulty with ambulation. Denies falls or seizures. Psychiatric: Chronic anxiety and depression Endocrine: Significant fatigue ,weight loss Past Medical History Past Medical History: Cancer, Deep Vein Thrombosis (DVT) Additional Past Medical History / Comment(s): 2006 Ovarian cancer with surgery/chemo, reoccurrance ovarian cancer 08/2017 with abdominal mets and receiving chemo, recurrent admissions for UTI/SBO/Ureteral Obstruction in 2018, R leg DVT 2014, bilateral TMJ with surgery/pins.IBS History of Any Multi-Drug Resistant Organisms: VRE Year Discovered:: 01/26/18 MDRO Source:: urine Past Surgical History: Heart Catheterization With Stent, Hysterectomy Additional Past Surgical History / Comment(s): ovarian cancer with bilateral oopherectomy/hysterectomy 2005; 2 open exploratory abdominal surgery, R chest mediport placed 2011, bilateral retrograde pyelogram cystoscopy with R ureter st ent, jaws have pins d/t surgery for TMJ, colonoscopy Past Anesthesia/Blood Transfusion Reactions: No Reported Reaction Additional Past Anesthesia/Blood Transfusion Reaction / Comm: Pt has received blood in past without reaction. Date of Last Stent Placement:: 2011 Past Psychological History: Anxiety, Depression Additional Psychological History / Comment(s): Single and lives independently. Is independent and drives. No animals in the home. Retired. experience. No recent travels Smoking Status: Never smoker Past Alcohol Use History: None Reported Additional Past Alcohol Use History / Comment(s): Patient is been a lifelong nonsmoker. She lives at home with her friend and a dog. Past Drug Use History: None Reported - Past Family History Mother Family Medical History: Diabetes Mellitus Brother(s) Family Medical History: Cancer Additional Family Medical History / Comment(s): lung cancer- since passed Sister(s) Family Medical History: CVA/TIA Father Family Medical History: Dementia, Neurologic Disorder Additional Family Medical History / Comment(s): alzheimers Medications and Allergies Home Medications and Allergies Comment(s): Current Medications Acetaminophen (Tylenol Tab) 650 mg PO Q6HR PRN PRN Reason: Mild Pain or Fever > 100.5 Alprazolam (Xanax) 0.25 mg PO HS PRN PRN Reason: Anxiety Aspirin (Aspirin) 81 mg PO DAILY [facility] Last Admin: 10/02/18 12:37 Dose: 81 mg Documented by: Diltiazem HCl (Cardizem Cd) 120 mg PO DAILY [facility] Last Admin: 10/02/18 07:59 Dose: 120 mg Documented by: Diphenhydramine HCl (Benadryl) 25 mg PO QID PRN PRN Reason: Itching Last Admin: 10/02/18 19:12 Dose: 25 mg Documented by: Escitalopram Oxalate (Lexapro) 20 mg PO DAILY [facility] Last Admin: 10/02/18 07:59 Dose: 20 mg Documented by: Gabapentin (Neurontin) 300 mg PO TID [facility] Last Admin: 10/02/18 20:28 Dose: 300 mg Documented by: Hydromorphone HCl (Dilaudid) 0.5 mg IVP Q3HR PRN PRN Reason: Severe Pain Last Admin: 10/02/18 21:31 Dose: 0.5 mg Documented by: Vancomycin HCl 1,250 mg/ (Sodium Chloride) 250 mls @ 125 mls/hr IVPB Q12H [facility] Last Admin: 10/02/18 21:33 Dose: 125 mls/hr Documented by: Ibuprofen (Motrin) 400 mg PO Q6HR PRN PRN Reason: Mild Pain or Fever > 100.5 Naloxone HCl (Narcan) 0.2 mg IV Q2M PRN PRN Reason: Opioid Reversal Ondansetron HCl (Zofran) 4 mg PO Q6HR PRN PRN Reason: Nausea And Vomiting Pantoprazole Sodium (Protonix) 40 mg PO DAILY@0730 [facility] Last Admin: 10/02/18 07:59 Dose: 40 mg Documented by: Tamsulosin HCl (Flomax) 0.4 mg PO [facility] Last Admin: 10/02/18 20:28 Dose: 0.4 mg Documented by: Zolpidem Tartrate (Ambien) 5 mg PO [facility] Last Admin: 10/02/18 20:28 Dose: 5 mg Documented by: Home Medications Medication Instructions Recorded Confirmed Type ALPRAZolam [Xanax] 0.25 mg PO HS PRN 08/25/14 10/01/18 History Diltiazem HCl [Diltiazem 24Hr ER] 120 mg PO DAILY 08/25/14 10/01/18 History Gabapentin [Neurontin] 300 mg PO TID 10/17/17 10/01/18 History Escitalopram [Lexapro] 20 mg PO DAILY 06/30/18 10/01/18 History Esomeprazole Magnesium [NexIUM] 20 mg PO DAILY 07/12/18 10/01/18 History Ondansetron HCl [Zofran] 8 mg PO Q8H PRN 09/14/18 10/01/18 History Tamsulosin [Flomax] 0.4 mg PO HS 09/14/18 10/01/18 History Zolpidem [Ambien] 5 mg PO HS 09/14/18 10/01/18 History Vancomycin 1,000 mg IVPB Q12HR #28 bag 10/02/18 Rx Allergies Allergy/AdvReac Type Severity Reaction Status Date / Time adhesive Allergy Rash/Hives Verified 10/01/18 20:04 carboplatin Allergy Anaphylaxis Verified 10/01/18 20:04 iodine Allergy Rash/Hives Verified 10/01/18 20:04 Penicillins Allergy Rash/Hives Verified 10/01/18 20:04 codeine AdvReac Nausea & Verified 10/01/18 20:04 Vomiting morphine AdvReac Nausea & Verified 10/01/18 20:04 Vomiting Physical Exam Vitals: Vital Signs Temp Pulse Pulse Resp BP BP Pulse Ox 10/02/18 16:00 65 16 10/02/18 12:48 98.4 F 65 16 106/53 97 10/02/18 08:00 70 18 10/02/18 04:36 98.6 F 70 18 100/52 95 10/02/18 00:32 98.4 F 71 18 150/82 99 10/01/18 23:33 98.2 F 78 18 140/92 98 Intake and Output 10/02/18 10/02/18 10/02/18 06:59 14:59 22:59 Other: Voiding Method Toilet Toilet Toilet # Voids 1 1 1 HEENT: Anicteric conjunctiva are pink and moist nasal mucosa grossly intact without significant lesions, there is no thrush. Neck: The neck is supple without significant lymphadenopathy or thyromegaly. Lungs: Good bilateral air entry without significant crackles or wheezing. There is no significant bronchial sounds. There is no egophony or dullness. Heart: Regular rate and rhythm with an audible S1-S2, no S3 no S4. There is no significant murmur click or rub, PMI was nondisplaced. Abdomen: Abdomen is mildly distended without significant ascites. There is minimal tenderness especially in the left lower quadrant. Right flank with minimal tenderness. No bruising is noted abdominal wall. No organomegaly is palpable Extremities: The upper extremities have excellent pulses they are symmetric, no significant petechiae or telangiectasia. No splinter hemorrhages were noted. The lower extremities are free from significant edema. The peripheral pulses were 2+ and symmetric. Neuro: Awake alert oriented to person place and time. There are no acute new gross focal sensory motor deficits. Results CBC & Chem 7: 10/01/18 20:59 10/01/18 20:59 Labs: Microbiology - Last 24 Hours (Table) 10/01/18 20:02 Urine Culture - Preliminary Urine,Voided Laboratory Results WBC 3.5 k/uL (3.8-10.6) L 10/01/18 20:59 RBC 2.99 m/uL (3.80-5.40) L 10/01/18 20:59 Hgb 10.3 gm/dL (11.4-16.0) L 10/01/18 20:59 Hct 29.4 % (34.0-46.0) L 10/01/18 20:59 MCV 98.4 fL (80.0-100.0) 10/01/18 20:59 MCH 34.5 pg (25.0-35.0) 10/01/18 20:59 MCHC 35.1 g/dL (31.0-37.0) 10/01/18 20:59 RDW 13.3 % (11.5-15.5) 10/01/18 20:59 Plt Count 120 k/uL (150-450) L 10/01/18 20:59 Neutrophils % 52 % 10/01/18 20:59 Lymphocytes % 40 % 10/01/18 20:59 Monocytes % 2 % 10/01/18 20:59 Eosinophils % 3 % 10/01/18 20:59 Basophils % 1 % 10/01/18 20:59 Neutrophils # 1.8 k/uL (1.3-7.7) 10/01/18 20:59 Lymphocytes # 1.4 k/uL (1.0-4.8) 10/01/18 20:59 Monocytes # 0.1 k/uL (0-1.0) 10/01/18 20:59 Eosinophils # 0.1 k/uL (0-0.7) 10/01/18 20:59 Basophils # 0.0 k/uL (0-0.2) 10/01/18 20:59 Sodium 139 mmol/L (137-145) 10/01/18 20:59 Potassium 3.9 mmol/L (3.5-5.1) 10/01/18 20:59 Chloride 106 mmol/L (98-107) 10/01/18 20:59 Carbon Dioxide 26 mmol/L (22-30) 10/01/18 20:59 Anion Gap 7 mmol/L 10/01/18 20:59 BUN 26 mg/dL (7-17) H 10/01/18 20:59 Creatinine 0.90 mg/dL (0.52-1.04) 10/01/18 20:59 Est GFR (CKD-EPI)AfAm 78 (>60 ml/min/1.73 sqM) 10/01/18 20:59 Est GFR (CKD-EPI)NonAf 68 (>60 ml/min/1.73 sqM) 10/01/18 20:59 Glucose 116 mg/dL (74-99) H 10/01/18 20:59 Plasma Lactic Acid Chad 1.5 mmol/L (0.7-2.0) 10/01/18 20:59 Calcium 8.6 mg/dL (8.4-10.2) 10/01/18 20:59 Total Bilirubin 0.3 mg/dL (0.2-1.3) 10/01/18 20:59 AST 16 U/L (14-36) 10/01/18 20:59 ALT 11 U/L (9-52) 10/01/18 20:59 Alkaline Phosphatase 62 U/L (38-126) 10/01/18 20:59 Total Protein 6.1 g/dL (6.3-8.2) L 10/01/18 20:59 Albumin 3.5 g/dL (3.5-5.0) 10/01/18 20:59 Urine Color Light Red 10/01/18 20:02 Urine Appearance Cloudy (Clear) H 10/01/18 20:02 Urine pH 5.5 (5.0-8.0) 10/01/18 20:02 Ur Specific [place] 1.024 (1.001-1.035) 10/01/18 20:02 Urine Protein 1+ (Negative) H 10/01/18 20:02 Urine Glucose (UA) Negative (Negative) 10/01/18 20:02 Urine Ketones Negative (Negative) 10/01/18 20:02 Urine Blood Large (Negative) H 10/01/18 20:02 Urine Nitrite Negative (Negative) 10/01/18 20:02 Urine Bilirubin Negative (Negative) 10/01/18 20:02 Urine Urobilinogen <2.0 mg/dL (<2.0) 10/01/18 20:02 Ur Leukocyte Esterase Large (Negative) H 10/01/18 20:02 Urine RBC >182 /hpf (0-5) H 10/01/18 20:02 Urine WBC 89 /hpf (0-5) H 10/01/18 20:02 Ur Squamous Epith Cells 2 /hpf (0-4) 10/01/18 20:02 Urine Bacteria Rare /hpf (None) H 10/01/18 20:02 Urine Mucus Rare /hpf (None) H 10/01/18 20:02 Microbiology 10/01/18 20:02 Urine,Voided Urine Culture - Preliminary Assessment and Plan (1) UTI (urinary tract infection) Narrative/Plan: 63-year-old female who has a complex past medical history regarding her ovarian cancer and mass effect onto her right kidney. His related that she did have obstruction and required ureteral stent placement. This allowed resolution of right nephrosis. She had the stent changed and now removed. She was doing well but relates that she's had ongoing difficulties with urinary tract infection and had worsening symptoms in the last few days. Dysuria fever and malaise have all occurred. Cultures reveal evidence of enterococcus species that are both susceptible to vancomycin therapy. Given the patient's ongoing symptoms she will at the time of discharge have arrangements for outpatient intravenous antibiotic therapy with vancomycin if he can be dosed once a day. If cannot be given once a day will then transitioned to daptomycin to complete her course of therapy for the refractory urinary tract infection that has not responded to several courses of other antibiotics. She does relate that when she has vancomycin she gets a bit of a rash with itching rapidly responds to Benadryl. Further Benadryl as requested and so we have further data. She does have IV access to the port of right anterior chest wall which hopefully can be utilized for outpatient intravenous antibiotic therapy. Current Visit: Yes Status: Acute Priority: High Code(s): N39.0 - URINARY TRACT INFECTION, SITE NOT SPECIFIED SNOMED Code(s): 29717975 (2) MERON (acute kidney injury) Current Visit: No Status: Acute Code(s): N17.9 - ACUTE KIDNEY FAILURE, UNSPECIFIED SNOMED Code(s): 35821419 (3) Ovarian cancer Current Visit: Yes Status: Acute Code(s): C56.9 - MALIGNANT NEOPLASM OF UNSPECIFIED OVARY SNOMED Code(s): 091409365
[2018-10-03] MEDS: HYDROmorphone 1 MG/ML 1 ML SYRINGE IVP PRN ×6 (05:41→22:50)
[2018-10-03] MEDS: VANCOMYCIN 1,250 MG in SODIUM CHLORIDE 0.9% 250 ML IVPB SCH ×2 (09:04→21:57)
[2018-10-03] MEDS: ESCITALOPRAM 20 MG TAB PO SCH (09:04)
[2018-10-03] MEDS: ASPIRIN 81 MG PO SCH (09:04)
[2018-10-03] MEDS: DILTIAZEM CD 120 MG CAP.ER.24H PO SCH (09:04)
[2018-10-03] MEDS: PANTOPRAZOLE 40 MG TABLET PO SCH (09:04)
[2018-10-03] MEDS: GABAPENTIN 300 MG CAP PO SCH ×3 (09:04→21:57)
--- NOTE | 2018-10-03 12:45 | CDI ---
Documentation Clarification Form Date: 10/03/2018 12:05:15 PM From: Nereyda Tijerina RN, CCDS Admit Date: 10/01/2018 11:20:00 PM Patient Name: Jesusita Galloway Visit Number: [id number] Discharge Date: ATTENTION: The Clinical Documentation Specialists (CDI) and [facility] Coding Staff appreciate your assistance in clarifying documentation. Please respond to the clarification below the line at the bottom and electronically sign. The CDI & [facility] Coding staff will review the response and follow-up if needed. Please note: Queries are made part of the Legal Health Record. If you have any questions, please contact the author of this message via ITS. Dr. Kevin Metzger The patient was admitting with a diagnosis of: UTI Pancytopenia has been documented in the ED lab assessment History/Risk factors: Ovarian cancer with surgery/chemo. , UTI, Ureteral Obstruction Clinical indicators: 63-year-olf female presents for evaluation of dysuria, urinary frequency, and right flank pain. She is currently being treated for ovarian cancer. She is receiving chemo, her last chemotherapy approximately one week ago. She has had nausea with no vomiting, shes had diarrhea. Labs: WBC 2.5. RBC 2.99, PLT Count 120 (HGB 10.3, HCT 29.4) Treatment: Monitor CBC In your professional opinion, can you please clarify if these findings signify one of the following conditions? Pancytopenia due to chemotherapy Pancytopenia drug induced, specify drug Pancytopenia due to other, please specify Other condition, please specify Unable to determine (Last Revision: February 2017) MTDD
[2018-10-03] MEDS: diphenhydrAMINE 50 MG CAP PO SCH ×3 (13:20→21:57)
--- NOTE | 2018-10-03 17:40 | PN ---
PROGRESS NOTE CHIEF COMPLAINT: Chronic urinary tract infection. HISTORY OF PRESENT ILLNESS: This lady is doing fairly well and IV antibiotics have been prescribed. She could go home anytime, in that she has a port in the right anterior chest. PHYSICAL EXAMINATION: She is afebrile. Chest is clear. Abdomen is soft, nontender. IMPRESSION: 1. Chronic urinary tract infection with stent of the right ureter. 2. Carcinoma of the ovary. PLAN: Home when cleared by Infectious Disease. MMODL / IJN: [id number] /
[2018-10-03] MEDS: TAMSULOSIN 0.4 MG CAP.ER.24H PO SCH (20:02)
[2018-10-03] MEDS: ZOLPIDEM 5 MG TAB PO SCH (21:57)
[2018-10-04] MEDS: HYDROmorphone 1 MG/ML 1 ML SYRINGE IVP PRN ×3 (01:45→08:35)
[2018-10-04] MEDS: PANTOPRAZOLE 40 MG TABLET PO SCH (08:36)
[2018-10-04] MEDS: ASPIRIN 81 MG PO SCH (08:36)
[2018-10-04] MEDS: DILTIAZEM CD 120 MG CAP.ER.24H PO SCH (08:37)
[2018-10-04] MEDS: ESCITALOPRAM 20 MG TAB PO SCH (08:37)
[2018-10-04] MEDS: GABAPENTIN 300 MG CAP PO SCH (08:37)
[2018-10-04] MEDS: diphenhydrAMINE 50 MG CAP PO SCH ×2 (08:37→12:37)
[2018-10-04] MEDS ORDERED: VANCOMYCIN TROUGH DUE 1 EACH MISC MISCELLANE ONE (09:00)
[2018-10-04] MEDS: VANCOMYCIN 1,250 MG in SODIUM CHLORIDE 0.9% 250 ML IVPB SCH (10:04)
[2018-10-04] MEDS ORDERED: HYDROcodone/APAP 5-325MG 1 EACH TAB PO PRN (10:42)
[2018-10-04 12:01] VITALS: BP 104/49; PULSE 77; RESP 18; TEMP 98.9
--- NOTE | 2018-10-04 13:03 | MISC ---
MISCELLANOUS REPORT Pancytopenia due to chemotherapy. MMODL / IJN: [id number] /
[2018-10-04] MEDS ORDERED: VANCOMYCIN 1,000 MG in SODIUM CHLORIDE 0.9% 250 ML IVPB SCH (22:00)
--- NOTE | 2018-10-04 22:23 | DS ---
DISCHARGE SUMMARY DATE OF SERVICE: 10/04/2018 CHIEF COMPLAINT: Chronic urinary tract infection. HISTORY OF PRESENT ILLNESS AND PHYSICAL EXAMINATION: Details of this lady's history and physical can be found in the initial workup. LABORATORY STUDIES: While she was in the hospital she had laboratory studies, details of which can be found in the laboratory section of her chart. COURSE IN THE HOSPITAL: After admission she was placed on bedrest, started on intravenous fluids and IV antibiotics. She was seen by Infectious Disease and started on IV antibiotic appropriate to the largely drug-resistant microorganisms residing in her urine. She had no fever, chills, etc., and symptoms were improving. It was felt she could go home on IV vancomycin on 10/04/2018, which will be set up at home with home care. We will is follow her in the office in several days. FINAL DIAGNOSES: 1. Chronic urinary tract infection. 2. Right ureteral obstruction with stent placement. 3. Metastatic ovarian carcinoma. 4. Hypertension. OPERATIONS: None. CONSULTATION: Infectious Disease. She is improved. MMODL / IJN: [id number] /
== END 2018-10-04 16:50 | disposition home health service (06) | DRG 689 ==
LOC: EC 19:26 → 3NMEDONC 23:20
PROVIDERS: ADMIT Family Medicine; ATTEND Family Medicine
DX: N39.0 Urinary tract infection, site not specified (principal); D61.810 Antineoplastic chemotherapy induced pancytopenia; C56.9 Malignant neoplasm of unspecified ovary; C79.89 Secondary malignant neoplasm of other specified sites; N17.9 Acute kidney failure, unspecified; E78.5 Hyperlipidemia, unspecified; G89.3 Neoplasm related pain (acute) (chronic); I10 Essential (primary) hypertension; I25.10 Atherosclerotic heart disease of native coronary artery without angina pectoris; K58.9 Irritable bowel syndrome, unspecified; T45.1X5A Adverse effect of antineoplastic and immunosuppressive drugs, initial encounter; Z79.899 Other long term (current) drug therapy; Z80.1 Family history of malignant neoplasm of trachea, bronchus and lung; Z82.0 Family history of epilepsy and other diseases of the nervous system; Z83.3 Family history of diabetes mellitus; Z86.718 Personal history of other venous thrombosis and embolism; Z90.710 Acquired absence of both cervix and uterus; Z95.5 Presence of coronary angioplasty implant and graft; Z88.3 Allergy status to other anti-infective agents; Z88.5 Allergy status to narcotic agent; Z88.0 Allergy status to penicillin; Z88.8 Allergy status to other drugs, medicaments and biological substances
CPT/HCPCS: 36415; 74018; 74176; 80053; 80202; 81001; 82565; 83605; 85025; 87040; 87086; 96361; 96365; 96366; 96375; 96376; 99285

== ENCOUNTER 2018-10-08 23:46 | Emergency (ER) | payer MEDICARE ==
[2018-10-09 00:11] VITALS: BP 134/81; PULSE 92; RESP 18; TEMP 99.2
[2018-10-09 00:57] LABS: Appearance,Urine Turbid (Clear); Bacteria,Urine Rare /hpf; Bilirubin,Urine Negative (Negative); Blood,Urine Large (Negative); Color,Urine Dark Red; Glucose,Urine (UA) Negative (Negative); Ketones,Urine Negative (Negative); Leukocyte Esterase,Urine Small (Negative); Nitrite,Urine Negative (Negative); PH, Urine 5.5 (5.0-8.0); Protein,Urine 2+ (Negative); RBC,Urine >182 /hpf (0-5); Urobilinogen,Urine <2.0 mg/dL (<2.0)
[2018-10-09] MEDS ORDERED: PHENAZOPYRIDINE 200 MG TAB PO STA (01:05)
--- NOTE | 2018-10-09 01:21 | ED ---
Female Urogenital HPI - General Chief complaint: Urogenital Stated complaint: Blood in Urine/UTI Time Seen by Provider: 10/09/18 00:12 Source: patient, family Mode of arrival: ambulatory Limitations: no limitations - History of Present Illness Initial comments: Patient is a 63-year-old female with a history of ovarian cancer and frequent urinary tract infections presents with a chief complaint of dysuria. Patient currently on vancomycin by PICC line at the instruction of Dr. Concepcion for urinary tract infection. She states that she comes in the emergency department today because of dysuria and hematuria. She states that she has plantar discomfort when she urinates. She cannot identify any other aggravating or alleviating factors. Timing is intermittent. She states the symptoms are not better from her last urinary tract infection. Patient also states that she has a chronic stent in the right kidney that is followed by Dr. Unger. - Related Data Home Medications Medication Instructions Recorded Confirmed ALPRAZolam [Xanax] 0.25 mg PO HS PRN 08/25/14 10/01/18 Diltiazem HCl [Diltiazem 24Hr ER] 120 mg PO DAILY 08/25/14 10/01/18 Gabapentin [Neurontin] 300 mg PO TID 10/17/17 10/01/18 Escitalopram [Lexapro] 20 mg PO DAILY 06/30/18 10/01/18 Esomeprazole Magnesium [NexIUM] 20 mg PO DAILY 07/12/18 10/01/18 Ondansetron HCl [Zofran] 8 mg PO Q8H PRN 09/14/18 10/01/18 Tamsulosin [Flomax] 0.4 mg PO HS 09/14/18 10/01/18 Zolpidem [Ambien] 5 mg PO HS 09/14/18 10/01/18 Hydrocodone/Acetaminophen [[place] 1 tab PO QID PRN 10/04/18 10/04/18 5-325] Previous Rx's Medication Instructions Recorded Vancomycin 1,000 mg IVPB Q12HR #28 bag 10/02/18 Allergies Allergy/AdvReac Type Severity Reaction Status Date / Time adhesive Allergy Rash/Hives Verified 10/09/18 00:11 carboplatin Allergy Anaphylaxis Verified 10/09/18 00:11 iodine Allergy Rash/Hives Verified 10/09/18 00:11 Penicillins Allergy Rash/Hives Verified 10/09/18 00:11 codeine AdvReac Nausea & Verified 10/09/18 00:11 Vomiting morphine AdvReac Nausea & Verified 10/09/18 00:11 Vomiting Review of Systems ROS Statement: Those systems with pertinent positive or pertinent negative responses have been documented in the HPI. ROS Other: All systems not noted in ROS Statement are negative. Genitourinary: Reports: urgency, dysuria, hematuria Past Medical History Past Medical History: Cancer, Deep Vein Thrombosis (DVT) Additional Past Medical History / Comment(s): 2006 Ovarian cancer with surgery/chemo, reoccurrance ovarian cancer 08/2017 with abdominal mets and receiving chemo, recurrent admissions for UTI/SBO/Ureteral Obstruction in 2017, R leg DVT 2014, bilateral TMJ with surgery/pins.IBS History of Any Multi-Drug Resistant Organisms: VRE Date of last positivie culture/infection: 01/26/18 MDRO Source:: urine Past Surgical History: Heart Catheterization With Stent, Hysterectomy Additional Past Surgical History / Comment(s): ovarian cancer with bilateral oopherectomy/hysterectomy 2005; 2 open exploratory abdominal surgery, R chest mediport placed 2011, bilateral retrograde pyelogram cystoscopy with R ureter stent, jaws have pins d/t surgery for TMJ, colonoscopy Past Anesthesia/Blood Transfusion Reactions: No Reported Reaction Additional Past Anesthesia/Blood Transfusion Reaction / Comment(s): Pt has received blood in past without reaction. Date of Last Stent Placement:: 2011 Past Psychological History: Anxiety, Depression Smoking Status: Never smoker Past Alcohol Use History: None Reported Past Drug Use History: None Reported - Past Family History Mother Family Medical History: Diabetes Mellitus Brother(s) Family Medical History: Cancer Additional Family Medical History / Comment(s): lung cancer- since passed Sister(s) Family Medical History: CVA/TIA Father Family Medical History: Dementia, Neurologic Disorder Additional Family Medical History / Comment(s): alzheimers General Exam Limitations: no limitations General appearance: alert, in no apparent distress Head exam: Present: atraumatic, normocephalic Eye exam: Present: normal appearance ENT exam: Present: normal exam Neck exam: Present: normal inspection Respiratory exam: Present: normal lung sounds bilaterally. Absent: respiratory distress, wheezes Cardiovascular Exam: Present: regular rate, normal rhythm GI/Abdominal exam: Present: soft, tenderness (suprapubic tenderness). Absent: distended Rectal exam: Present: deferred Extremities exam: Present: normal inspection Back exam: Present: normal inspection Neurological exam: Present: alert, oriented X3 Psychiatric exam: Present: normal affect, normal mood Skin exam: Present: warm, dry, intact Course Vital Signs 10/09/18 00:07 Temperature 99.2 F Pulse Rate 92 Respiratory 18 Rate Blood Pressure 134/81 O2 Sat by Pulse 98 Oximetry Medical Decision Making - Medical Decision Making Patient presents with a chief complaint of dysuria. On initial evaluation, vitals are stable, patient is in no acute distress. Patient is currently on vancomycin for a urinary tract infection. She follows with Dr. Concepcion and Dr. Aragon patient is also has a chronic indwelling ureteral stent. Review of patient's urine culture shows that she had an enterococcus infection, which is why she is currently on vancomycin. Repeat culture on 10/01 showed no growth. Urinalysis today shows hematuria with greater than 182 red blood cells, but only 12 white cells. At this time, I do not believe that the patient is suffering from a recurrent urinary tract infection but rather hematuria. Case discussed with Dr. Aragon who is agreeable with urine culture, Pyridium, and outpatient follow-up in his office. Patient is agreeable to this care plan. She was instructed to follow up with urology within 1-2 days, call the office in the morning. She was prescribed Pyridium for discomfort. She isn't short stay well-hydrated. Return to ED if symptoms worsen or change. - Lab Data Lab Results 10/09/18 Range/Units 00:21 Urine Color Dark Red Urine Appearance Turbid H (Clear) Urine pH 5.5 (5.0-8.0) Ur Specific [place] 1.020 (1.001-1.035) Urine Protein 2+ H (Negative) Urine Glucose (UA) Negative (Negative) Urine Ketones Negative (Negative) Urine Blood Large H (Negative) Urine Nitrite Negative (Negative) Urine Bilirubin Negative (Negative) Urine Urobilinogen <2.0 (<2.0) mg/dL Ur Leukocyte Esterase Small H (Negative) Urine RBC >182 H (0-5) /hpf Urine WBC 12 H (0-5) /hpf Urine Bacteria Rare H (None) /hpf Disposition Clinical Impression: Cystitis, Hematuria Disposition: HOME SELF-CARE Condition: Good Instructions (If sedation given, give patient instructions): Hematuria (ED) Is patient prescribed a controlled substance at d/c from ED?: No Referrals: Kevin Metzger MD [Primary Care Provider] - 1-2 days
== END 2018-10-09 01:50 | disposition home or self-care (01) ==
LOC: EC 23:46
DX: N30.91 Cystitis, unspecified with hematuria (principal); C79.89 Secondary malignant neoplasm of other specified sites; F32.9 Major depressive disorder, single episode, unspecified; F41.9 Anxiety disorder, unspecified; Z88.0 Allergy status to penicillin; Z88.5 Allergy status to narcotic agent; Z88.8 Allergy status to other drugs, medicaments and biological substances; Z91.048 Other nonmedicinal substance allergy status; Z79.899 Other long term (current) drug therapy; Z85.43 Personal history of malignant neoplasm of ovary; Z92.21 Personal history of antineoplastic chemotherapy; Z90.710 Acquired absence of both cervix and uterus; Z96.0 Presence of urogenital implants; Z90.722 Acquired absence of ovaries, bilateral; Z95.828 Presence of other vascular implants and grafts; Z98.890 Other specified postprocedural states
CPT/HCPCS: 81001; 87086; 99283

== ENCOUNTER 2018-10-27 22:28 | Inpatient (IN) | payer MEDICARE ==
[2018-10-27] MEDS ORDERED: SODIUM CHLORIDE 0.9% 1,000 ML IV STA ×2 (22:46)
[2018-10-27] MEDS ORDERED: SODIUM CHLORIDE 0.9% 500 ML 500 ML IV STA (22:46)
[2018-10-27] MEDS ORDERED: IBUPROFEN 800 MG TAB PO STA (22:48)
[2018-10-27] MEDS ORDERED: ACETAMINOPHEN TAB 500 MG TAB PO STA (22:48)
--- NOTE | 2018-10-27 22:48 | ED ---
Female Urogenital HPI <Jeannie Carballo Olvin - Last Filed: 10/28/18 01:46> - General Source: patient, RN notes reviewed, old records reviewed Mode of arrival: ambulatory Limitations: no limitations - History of Present Illness MD Complaint: dysuria -: days(s) (2) Location: suprapubic Radiation: non-radiating Severity: moderate Severity scale (1-10): 4 Consistency: constant, intermittent Worsens with: urination Patient : No Associated Symptoms: denies other symptoms - Related Data Sexually active: No <Ted Flor - Last Filed: 10/29/18 12:28> - General Chief complaint: Urogenital Stated complaint: Urogenital Time Seen by Provider: 10/27/18 22:46 - History of Present Illness Initial comments: This is a 63-year-old female the ER today. She presents today for evaluation of fever not feeling well, abdominal pain and dysuria, generalized body aches and pains. Patient noticed fever today, she also has fever yesterday. Patient was most recent antibiotics about a week ago for urinary tract infection. She does have active cancer on chemotherapy. Patient has had ovarian cancer with surgery. (Ted Flor) - Related Data Home Medications Medication Instructions Recorded Confirmed ALPRAZolam [Xanax] 0.25 mg PO HS PRN 08/25/14 10/27/18 Diltiazem HCl [Diltiazem 24Hr ER] 120 mg PO DAILY 08/25/14 10/27/18 Gabapentin [Neurontin] 300 mg PO TID 10/17/17 10/27/18 Escitalopram [Lexapro] 20 mg PO DAILY 06/30/18 10/27/18 Esomeprazole Magnesium [NexIUM] 20 mg PO DAILY 07/12/18 10/27/18 Ondansetron HCl [Zofran] 8 mg PO Q8H PRN 09/14/18 10/27/18 Tamsulosin [Flomax] 0.4 mg PO HS 09/14/18 10/27/18 Zolpidem [Ambien] 5 mg PO HS 09/14/18 10/27/18 Hydrocodone/Acetaminophen [Rush 1 tab PO QID PRN 10/04/18 10/27/18 5-325] Allergies Allergy/AdvReac Type Severity Reaction Status Date / Time adhesive Allergy Rash/Hives Verified 10/27/18 23:16 carboplatin Allergy Anaphylaxis Verified 10/27/18 23:16 iodine Allergy Rash/Hives Verified 10/27/18 23:16 Penicillins Allergy Rash/Hives Verified 10/27/18 23:16 codeine AdvReac Nausea & Verified 10/27/18 23:16 Vomiting morphine AdvReac Nausea & Verified 10/27/18 23:16 Vomiting Review of Systems ROS Other: All systems not noted in ROS Statement are negative. <Jeannie Carballo - Last Filed: 10/28/18 01:46> ROS Other: All systems not noted in ROS Statement are negative. <Ted Flor - Last Filed: 10/29/18 12:28> ROS Statement: Those systems with pertinent positive or pertinent negative responses have been documented in the HPI. Past Medical History Past Medical History: Cancer, Deep Vein Thrombosis (DVT) Additional Past Medical History / Comment(s): 2006 Ovarian cancer with surgery/chemo, reoccurrance ovarian cancer 08/2017 with abdominal mets and receiving chemo, recurrent admissions for UTI/SBO/Ureteral Obstruction in 2018, R leg DVT 2014, bilateral TMJ with surgery/pins.IBS, History of Any Multi-Drug Resistant Organisms: VRE Date of last positivie culture/infection: 01/26/18 MDRO Source:: urine Past Surgical History: Heart Catheterization With Stent, Hysterectomy Additional Past Surgical History / Comment(s): ovarian cancer with bilateral oopherectomy/hysterectomy 2005; 2 open exploratory abdominal surgery, R chest mediport placed 2011, bilateral retrograde pyelogram cystoscopy with R ureter stent, jaws have pins d/t surgery for TMJ, colonoscopy, Past Anesthesia/Blood Transfusion Reactions: No Reported Reaction Additional Past Anesthesia/Blood Transfusion Reaction / Comment(s): Pt has received blood in past without reaction. Date of Last Stent Placement:: 2011 Past Psychological History: Anxiety, Depression Smoking Status: Never smoker Past Alcohol Use History: None Reported Past Drug Use History: None Reported - Past Family History Mother Family Medical History: Diabetes Mellitus Brother(s) Family Medical History: Cancer Additional Family Medical History / Comment(s): lung cancer- since passed Sister(s) Family Medical History: CVA/TIA Father Family Medical History: Dementia, Neurologic Disorder Additional Family Medical History / Comment(s): alzheimers <Ted Flor - Last Filed: 10/29/18 12:28> General Exam Limitations: no limitations General appearance: alert, in no apparent distress Head exam: Present: atraumatic, normocephalic, normal inspection Eye exam: Present: normal appearance, PERRL, EOMI. Absent: scleral icterus, conjunctival injection, periorbital swelling ENT exam: Present: normal exam, mucous membranes moist Neck exam: Present: normal inspection. Absent: tenderness, meningismus, lymphadenopathy Respiratory exam: Present: normal lung sounds bilaterally. Absent: respiratory distress, wheezes, rales, rhonchi, stridor Cardiovascular Exam: Present: regular rate, normal rhythm, normal heart sounds. Absent: systolic murmur, diastolic murmur, rubs, gallop, clicks GI/Abdominal exam: Present: soft, normal bowel sounds. Absent: distended, tenderness, guarding, rebound, rigid Extremities exam: Present: normal inspection, full ROM, normal capillary refill. Absent: tenderness, pedal edema, joint swelling, calf tenderness Back exam: Present: normal inspection Neurological exam: Present: alert, oriented X3, CN II-XII intact Psychiatric exam: Present: normal affect, normal mood Skin exam: Present: warm, dry, intact, normal color. Absent: rash <Ted Flor - Last Filed: 10/29/18 12:28> Course <Ted Flor - Last Filed: 10/29/18 12:28> Vital Signs 10/27/18 10/28/18 10/28/18 22:41 00:36 01:35 Temperature 101.5 F H 99.7 F H Pulse Rate 77 96 84 Respiratory 18 16 18 Rate Blood Pressure 115/76 116/52 99/67 O2 Sat by Pulse 96 96 97 Oximetry 10/28/18 03:32 Temperature Pulse Rate 78 Respiratory 18 Rate Blood Pressure 110/54 O2 Sat by Pulse 96 Oximetry - Reevaluation(s) Reevaluation #1: 10/27/18 23:26 Medical record is reviewed (Ted Flor) Reevaluation #2: 10/27/18 23:26 Patient symptoms and pain is improved (Ted Flor) Medical Decision Making - Lab Data Result diagrams: 10/28/18 00:02 10/28/18 00:02 <Jeannie Carballo - Last Filed: 10/28/18 01:46> - Lab Data Result diagrams: 10/28/18 00:02 10/28/18 00:02 - EKG Data -: EKG Interpreted by Me (EKG shows normal sinus rhythm rate of 99, [place] 1:30, QRS 74, QTc 423) <Ted Flor - Last Filed: 10/29/18 12:28> - Medical Decision Making Patient care was signed out to me by Dr. Flor, 63-year-old female with ovarian cancer currently being treated with chemo presenting with generalized malaise, fever and lower urinary tract symptoms. A sepsis workup was initiated. Labs reveal pancytopenia. Urinalysis confirms a urinary tract infection. Review of medical biology from last month reveals no organisms noted on urine culture previously. Patient has been treated with Rocephin today. Patient will be admitted to her primary care physician Dr. Metzger. (Jeannie Carballo) 63 female the ER for evaluation shortness a for evaluation of fever (Ted Flor) - Lab Data Lab Results 10/28/18 10/28/18 10/28/18 Range/Units 00:02 00:02 00:02 WBC 3.3 L (3.8-10.6) k/uL RBC 2.68 L (3.80-5.40) m/uL Hgb 8.9 L (11.4-16.0) gm/dL Hct 25.7 L (34.0-46.0) % MCV 96.0 (80.0-100.0) fL MCH 33.1 (25.0-35.0) pg MCHC 34.5 (31.0-37.0) g/dL RDW 13.0 (11.5-15.5) % Plt Count 135 L (150-450) k/uL Neutrophils % (Manual) 44 % Band Neutrophils % 1 % Lymphocytes % (Manual) 43 % Monocytes % (Manual) 12 % Neutrophils # (Manual) 1.40 (1.3-7.7) k/uL Lymphocytes # (Manual) 1.42 (1.0-4.8) k/uL Monocytes # (Manual) 0.40 (0-1.0) k/uL Nucleated RBCs 0 (0-0) /100 WBC Manual Slide Review Performed Hypersegmented Neuts Present Large Platelets Present Polychromasia Present Poikilocytosis (manual Present Anisocytosis (manual) Present PT (9.0-12.0) sec INR (<1.2) APTT (22.0-30.0) sec Sodium 138 (137-145) mmol/L Potassium 3.6 (3.5-5.1) mmol/L Chloride 108 H (98-107) mmol/L Carbon Dioxide 25 (22-30) mmol/L Anion Gap 5 mmol/L BUN 14 (7-17) mg/dL Creatinine 0.95 (0.52-1.04) mg/dL Est GFR (CKD-EPI)AfAm 73 (>60 ml/min/1.73 sqM) Est GFR (CKD-EPI)NonAf 63 (>60 ml/min/1.73 sqM) Glucose 96 (74-99) mg/dL Plasma Lactic Acid Chad 0.8 (0.7-2.0) mmol/L Calcium 7.5 L (8.4-10.2) mg/dL Phosphorus 2.8 (2.5-4.5) mg/dL Magnesium 1.1 L (1.6-2.3) mg/dL Total Bilirubin 0.3 (0.2-1.3) mg/dL AST 26 (14-36) U/L ALT 25 (9-52) U/L Alkaline Phosphatase 60 (38-126) U/L Creatine Kinase 25 L (30-135) U/L Troponin I (0.000-0.034) ng/mL Total Protein 5.2 L (6.3-8.2) g/dL Albumin 2.8 L (3.5-5.0) g/dL Urine Color Urine Appearance (Clear) Urine pH (5.0-8.0) Ur Specific [place] (1.001-1.035) Urine Protein (Negative) Urine Glucose (UA) (Negative) Urine Ketones (Negative) Urine Blood (Negative) Urine Nitrite (Negative) Urine Bilirubin (Negative) Urine Urobilinogen (<2.0) mg/dL Ur Leukocyte Esterase (Negative) Urine RBC (0-5) /hpf Urine WBC (0-5) /hpf Urine WBC Clumps (None) /hpf Ur Squamous Epith Cells (0-4) /hpf Amorphous Sediment (None) /hpf Urine Bacteria (None) /hpf Hyaline Casts (0-2) /lpf Urine Mucus (None) /hpf 10/28/18 10/28/18 10/28/18 Range/Units 00:02 00:02 00:02 WBC (3.8-10.6) k/uL RBC (3.80-5.40) m/uL Hgb (11.4-16.0) gm/dL Hct (34.0-46.0) % MCV (80.0-100.0) fL MCH (25.0-35.0) pg MCHC (31.0-37.0) g/dL RDW (11.5-15.5) % Plt Count (150-450) k/uL Neutrophils % (Manual) % Band Neutrophils % % Lymphocytes % (Manual) % Monocytes % (Manual) % Neutrophils # (Manual) (1.3-7.7) k/uL Lymphocytes # (Manual) (1.0-4.8) k/uL Monocytes # (Manual) (0-1.0) k/uL Nucleated RBCs (0-0) /100 WBC Manual Slide Review Hypersegmented Neuts Large Platelets Polychromasia Poikilocytosis (manual Anisocytosis (manual) PT 10.0 (9.0-12.0) sec INR 0.9 (<1.2) APTT 23.0 (22.0-30.0) sec Sodium (137-145) mmol/L Potassium (3.5-5.1) mmol/L Chloride (98-107) mmol/L Carbon Dioxide (22-30) mmol/L Anion Gap mmol/L BUN (7-17) mg/dL Creatinine (0.52-1.04) mg/dL Est GFR (CKD-EPI)AfAm (>60 ml/min/1.73 sqM) Est GFR (CKD-EPI)NonAf (>60 ml/min/1.73 sqM) Glucose (74-99) mg/dL Plasma Lactic Acid Chad (0.7-2.0) mmol/L Calcium (8.4-10.2) mg/dL Phosphorus (2.5-4.5) mg/dL Magnesium (1.6-2.3) mg/dL Total Bilirubin (0.2-1.3) mg/dL AST (14-36) U/L ALT (9-52) U/L Alkaline Phosphatase (38-126) U/L Creatine Kinase (30-135) U/L Troponin I <0.012 (0.000-0.034) ng/mL Total Protein (6.3-8.2) g/dL Albumin (3.5-5.0) g/dL Urine Color Yellow Urine Appearance Cloudy H (Clear) Urine pH 5.5 (5.0-8.0) Ur Specific [place] 1.016 (1.001-1.035) Urine Protein 1+ H (Negative) Urine Glucose (UA) Negative (Negative) Urine Ketones Negative (Negative) Urine Blood Moderate H (Negative) Urine Nitrite Negative (Negative) Urine Bilirubin Negative (Negative) Urine Urobilinogen <2.0 (<2.0) mg/dL Ur Leukocyte Esterase Large H (Negative) Urine RBC 28 H (0-5) /hpf Urine WBC 117 H (0-5) /hpf Urine WBC Clumps Occasional H (None) /hpf Ur Squamous Epith Cells 8 H (0-4) /hpf Amorphous Sediment Occasional H (None) /hpf Urine Bacteria Occasional H (None) /hpf Hyaline Casts 6 H (0-2) /lpf Urine Mucus Occasional H (None) /hpf Disposition <Jeannie Carballo P - Last Filed: 10/28/18 01:46> Is patient prescribed a controlled substance at d/c from ED?: No <Ted Flor - Last Filed: 10/29/18 12:28> Clinical Impression: UTI (urinary tract infection), Nausea & vomiting, Abdominal pain, Dehydration Disposition: ADMITTED IP TO THIS HOSP Condition: Fair
[2018-10-27] MEDS ORDERED: HYDROmorphone 1 MG/ML 1 ML SYRINGE IVP STA (23:45)
--- NOTE | 2018-10-27 23:47 | XR ---
EXAM: XR Chest, 2 Views CLINICAL HISTORY: Pain TECHNIQUE: Frontal and lateral views of the chest. COMPARISON: 09/14/18 FINDINGS: Lungs: Unremarkable. No consolidation. Pleural space: Unremarkable. No pneumothorax. Heart: Unremarkable. No cardiomegaly. Mediastinum: Unremarkable. Bones/joints: Unremarkable. IMPRESSION: No acute abnormality. No change from prior study.
[2018-10-27] MEDS ORDERED: ONDANSETRON 4 MG/2 ML VIAL IVP STA (23:50)
[2018-10-28 00:30] LABS: HCT 25.7 % (34.0-46.0); MCH 33.1 pg (25.0-35.0); MCHC 34.5 g/dL (31.0-37.0); Mean Platelet Volume 8.2; Platelet Count 135 k/uL (150-450); RBC 2.68 m/uL (3.80-5.40); WBC 3.3 k/uL (3.8-10.6)
[2018-10-28 00:43] LABS: Albumin 2.8 g/dL (3.5-5.0); Calcium 7.5 mg/dL (8.4-10.2); Magnesium 1.1 mg/dL (1.6-2.3); Phosphorus 2.8 mg/dL (2.5-4.5); Potassium 3.6 mmol/L (3.5-5.1); Total Bilirubin 0.3 mg/dL (0.2-1.3); Total Protein 5.2 g/dL (6.3-8.2)
[2018-10-28 00:46] LABS: INR 0.9 (<1.2)
[2018-10-28 00:52] LABS: Amorphous Sediment,Urine Occasional /hpf; Appearance,Urine Cloudy (Clear); Bacteria,Urine Occasional /hpf; Bilirubin,Urine Negative (Negative); Blood,Urine Moderate (Negative); Color,Urine Yellow; Glucose,Urine (UA) Negative (Negative); Hyaline Casts,Urine 6 /lpf (0-2); Ketones,Urine Negative (Negative); Leukocyte Esterase,Urine Large (Negative); Mucus,Urine Occasional /hpf; Nitrite,Urine Negative (Negative); PH, Urine 5.5 (5.0-8.0); Protein,Urine 1+ (Negative); RBC,Urine 28 /hpf (0-5); Specific Gravity,Urine 1.016 (1.001-1.035); Squamous Epithelial Cell,Urine 8 /hpf (0-4); Urobilinogen,Urine <2.0 mg/dL (<2.0); WBC,Urine 117 /hpf (0-5)
[2018-10-28 00:58] LABS: HGB 8.9 gm/dL (11.4-16.0)
[2018-10-28 01:45] LABS: Band Neutrophils % 1 %; Large Platelets Present; Lymphocytes # (M) 1.42 k/uL (1.0-4.8); Neutrophils % (M) 44 %; Nucleated Red Blood Cells 0 /100 WBC (0-0); Total Cells Counted 100
[2018-10-28 01:46] LABS: Hypersegmented Neutrophils Present; Polychromasia Present
[2018-10-28 01:48] LABS: Anisocytosis (M) Present; Poikilocytosis (M) Present
[2018-10-28] MEDS: HYDROmorphone 1 MG/ML 1 ML SYRINGE IVP PRN ×5 (03:22→21:21)
[2018-10-28] MEDS: SODIUM CHLORIDE 0.9% 1,000 ML IV SCH ×3 (04:24→16:11)
[2018-10-28] MEDS ORDERED: ALPRAZolam 0.25 MG TAB PO PRN (09:42)
--- NOTE | 2018-10-28 11:03 | HP ---
HISTORY AND PHYSICAL CHIEF COMPLAINT: Fever, and ataxia with fatigue. HISTORY OF PRESENT ILLNESS: This is another recent admission for this 63-year-old white female with had advanced ovarian neoplasm. She has had problems with obstructive uropathy and stents been placed on the right. It recently changed a few weeks ago. However, she continues to have chronic and recurrent urinary tract infections. She just finished 14 day course of antibiotics and stopped them several days ago after which she started to develop extreme fatigue, ataxia and then spiked a temperature. She came to emergency room, and temperature is 101.5. REVIEW OF SYSTEMS: She has had no vomiting, chest pain, abdominal pain, hematemesis, melena, hematochezia, jaundice, dysuria frequency, urgency etc. Past medical history, family history personal and social histories are all otherwise unremarkable and unchanged from her recent visits. MEDICATIONS: She takes Xanax, diltiazem, Lexapro, Nexium, gabapentin, Vicodin, Zofran, tamsulosin and zolpidem. PHYSICAL EXAM: Blood pressure 113/64, pulse 70, respirations of 18, temperature 101.5. In general she appeared to be well developed, well nourished, no acute distress. Skin color is normal. Skin is warm, dry. Lymph nodes not enlarged. Head, ears, eyes, nose, mouth, and throat were normal. Neck veins not distended. Thyroid is not enlarged. CHEST: Clear. Cardiac exam is normal. Abdomen is soft and nontender. Flanks nontender. Extremities normal. Neurological is intact. She is admitted to the hospital diagnoses: 1. Chronic and recurrent urinary tract infections. 2. Right ureteral obstruction with stent. 3. 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 4. Dehydration. PLAN: 1. Bed rest. 2. IV fluids. 3. Culture urine. 4. Consult Infectious Disease. MMODL / IJN: [id number] /
--- NOTE | 2018-10-28 15:43 | P.CONS ---
History of Present Illness - Reason for Consult Consult date: 10/28/18 - Chief Complaint Fever and dysuria - History of Present Illness 63 -year-old female who has a history of ovarian carcinoma has been receiving outpatient chemotherapy regarding her extensive disease. She was recently hospitalized last month at which point in time she had a urinary tract infection, and has been treated with a two-week course of Invanz which she tolerated very well. She complete resolution of her symptoms and was feeling quite well. However within days of discontinuation of her antibiotic therapy she started to have some dysuria, this progressed in severity and frequency over the following days. By the weekend she was feeling quite poorly that she started to develop evidence of fever she had 101.5 which is quite unusual for her in consequently sought care in the emergency center. With concerns to resistant pathogens the consult was initiated. She relates since coming to hospital she seemed to slightly better but still has distinct dysuria and frequency. She has chronic lower abdominal pain thought to be related to ovarian cancer. She's had no vaginal bleeding. She's having no difficulty with the [id number] in the right anterior chest wall. She is hoping to be well in nature. At times she does not miss her next course of chemotherapy. She does relate that she was seen by the urologist in the outpatient setting recently and there were no new plans of dealing with stent exchange. Review of Systems HEENT:Denies headache or acute visual change. Denies sinus or mouth discomforts. Denies neck stiffness or pain. Denies significant oral cavity pain. Denies difficulty on swallowing. Lungs: Denies significant shortness of breath, cough, sputum production, or hemoptysis. Cardiovascular: Denies significant shortness of breath, chest pain, chest wall pain, orthopnea, dyspnea on exertion, syncope Gastrointestinal: Has some chronic abdominal pain and decreased appetite but no significant nausea or emesis or hematemesis melena or hematochezia does have some bilateral flank pain at times Musculoskeletal: denies significant myalgias or arthralgias. No new joint swelling. Denies new back pain. Skin: Denies new rash or lesions. No new ulcers or wounds are related.. Neuro: Denies headache or visual change. Denies any new onset weakness or difficulty with ambulation. Denies falls or seizures. Psychiatric:Denies anxiety or depression. Endocrine: Worsening fatigue weight has been stable Past Medical History Past Medical History: Cancer, Deep Vein Thrombosis (DVT) Additional Past Medical History / Comment(s): 2006 Ovarian cancer with surgery/chemo, reoccurrance ovarian cancer 08/2017 with abdominal mets and receiving chemo (last dose 2 weeks ago, next dose is November 06 2018), recurrent admissions for UTI/SBO/Ureteral Obstruction in 2017, R leg DVT 2014, bilateral TMJ with surgery/pins,IBS, History of Any Multi-Drug Resistant Organisms: VRE Year Discovered:: 01/26/18 MDRO Source:: urine Past Surgical History: Heart Catheterization With Stent, Hysterectomy Additional Past Surgical History / Comment(s): ovarian cancer with bilateral oopherectomy/hysterectomy 2005; 2 open exploratory abdominal surgery, R chest mediport placed 2011, bilateral retrograde pyelogram cystoscopy with R ureter s tent, jaws have pins d/t surgery for TMJ, colonoscopy, Past Anesthesia/Blood Transfusion Reactions: No Reported Reaction Additional Past Anesthesia/Blood Transfusion Reaction / Comm: Pt has received blood in past without reaction. Date of Last Stent Placement:: 2011 Past Psychological History: Anxiety, Depression Additional Psychological History / Comment(s): Single and lives independently. Is independent and drives. Dog: Champs. Retired. experience. No rec ent travels Smoking Status: Never smoker Past Alcohol Use History: None Reported Past Drug Use History: None Reported - Past Family History Mother Family Medical History: Diabetes Mellitus Brother(s) Family Medical History: Cancer Additional Family Medical History / Comment(s): lung cancer- since passed Sister(s) Family Medical History: CVA/TIA Father Family Medical History: Dementia, Neurologic Disorder Additional Family Medical History / Comment(s): alzheimers Medications and Allergies Home Medications and Allergies Comment(s): Current Medications Hydrocodone Bitart/Acetaminophen ([place] 5-325) 1 each PO QID PRN PRN Reason: Pain Alprazolam (Xanax) 0.25 mg PO HS PRN PRN Reason: Anxiety Diltiazem HCl (Cardizem Cd) 120 mg PO DAILY CARMENZA Escitalopram Oxalate (Lexapro) 20 mg PO DAILY CARMENZA Gabapentin (Neurontin) 300 mg PO TID CARMENZA Hydromorphone HCl (Dilaudid) 1 mg IVP Q4HR PRN PRN Reason: Pain Last Admin: 10/28/18 12:59 Dose: 1 mg Documented by: Sodium Chloride (Saline 0.9%) 1,000 mls @ 100 mls/hr IV .Q10H [facility] Last Admin: 10/28/18 10:48 Dose: Not Given Documented by: Ondansetron HCl (Zofran) 8 mg PO Q8H PRN PRN Reason: Nausea Pantoprazole Sodium (Protonix) 40 mg PO -BRKFST [facility] Tamsulosin HCl (Flomax) 0.4 mg PO [facility] Zolpidem Tartrate (Ambien) 5 mg PO [facility] Home Medications Medication Instructions Recorded Confirmed Type ALPRAZolam [Xanax] 0.25 mg PO HS PRN 08/25/14 10/27/18 History Diltiazem HCl [Diltiazem 24Hr ER] 120 mg PO DAILY 08/25/14 10/27/18 History Gabapentin [Neurontin] 300 mg PO TID 10/17/17 10/27/18 History Escitalopram [Lexapro] 20 mg PO DAILY 06/30/18 10/27/18 History Esomeprazole Magnesium [NexIUM] 20 mg PO DAILY 07/12/18 10/27/18 History Ondansetron HCl [Zofran] 8 mg PO Q8H PRN 09/14/18 10/27/18 History Tamsulosin [Flomax] 0.4 mg PO HS 09/14/18 10/27/18 History Zolpidem [Ambien] 5 mg PO HS 09/14/18 10/27/18 History Hydrocodone/Acetaminophen [[place] 1 tab PO QID PRN 10/04/18 10/27/18 History 5-325] Allergies Allergy/AdvReac Type Severity Reaction Status Date / Time adhesive Allergy Rash/Hives Verified 10/27/18 23:16 carboplatin Allergy Anaphylaxis Verified 10/27/18 23:16 iodine Allergy Rash/Hives Verified 10/27/18 23:16 Penicillins Allergy Rash/Hives Verified 10/27/18 23:16 codeine AdvReac Nausea & Verified 10/27/18 23:16 Vomiting morphine AdvReac Nausea & Verified 10/27/18 23:16 Vomiting Physical Exam Vitals: Vital Signs Temp Pulse Pulse Resp BP BP Pulse Ox 10/28/18 13:08 98.2 F 71 18 143/80 100 10/28/18 04:05 98.1 F 70 18 113/64 98 10/28/18 03:32 78 18 110/54 96 10/28/18 01:35 99.7 F H 84 18 99/67 97 10/28/18 00:36 96 16 116/52 96 10/27/18 22:41 101.5 F H 77 18 115/76 96 Intake and Output 10/28/18 10/28/18 10/28/18 06:59 14:59 22:59 Intake Total 680 Balance 680 Intake: Intake, IV Titration 200 Amount Sodium Chloride 0.9% 1, 200 000 ml @ 100 mls/hr IV . Q10H STA Rx#:[id number] Oral 480 Other: Voiding Method Toilet Toilet # Voids 2 2 63-year-old female presents to Hospital from home with the several-day history of increasing symptoms of dysuria and fever. HEENT: Anicteric conjunctiva are pink and moist nasal mucosa grossly intact without significant lesions, there is no thrush. Neck: The neck is supple without significant lymphadenopathy or thyromegaly. Lungs: Good bilateral air entry without significant crackles or wheezing. There is no significant bronchial sounds. There is no egophony or dullness. Heart: Regular rate and rhythm with an audible S1-S2, no S3 no S4. There is no significant murmur click or rub, PMI was nondisplaced. Abdomen: Positive bowel sounds soft has tenderness in the suprapubic area without palpable masses or organomegaly. There was no guarding or rebound. Does have some bilateral flank tenderness but no swelling or bruising is noted Extremities: The upper extremities have excellent pulses they are symmetric, no significant petechiae or telangiectasia. No splinter hemorrhages were noted. The lower extremities are free from significant edema. The peripheral pulses were 2+ and symmetric. Neuro: Awake alert oriented to person place and time. There are no acute new gross focal sensory motor deficits. 63 Results CBC & Chem 7: 10/28/18 00:02 10/28/18 00:02 Labs: Abnormal Lab Results - Last 24 Hours (Table) 10/28/18 10/28/18 10/28/18 Range/Units 00:02 00:02 00:02 WBC 3.3 L (3.8-10.6) k/uL RBC 2.68 L (3.80-5.40) m/uL Hgb 8.9 L (11.4-16.0) gm/dL Hct 25.7 L (34.0-46.0) % Plt Count 135 L (150-450) k/uL Chloride 108 H (98-107) mmol/L Calcium 7.5 L (8.4-10.2) mg/dL Magnesium 1.1 L (1.6-2.3) mg/dL Creatine Kinase 25 L (30-135) U/L Total Protein 5.2 L (6.3-8.2) g/dL Albumin 2.8 L (3.5-5.0) g/dL Urine Appearance Cloudy H (Clear) Urine Protein 1+ H (Negative) Urine Blood Moderate H (Negative) Ur Leukocyte Esterase Large H (Negative) Urine RBC 28 H (0-5) /hpf Urine WBC 117 H (0-5) /hpf Urine WBC Clumps Occasional H (None) /hpf Ur Squamous Epith Cells 8 H (0-4) /hpf Amorphous Sediment Occasional H (None) /hpf Urine Bacteria Occasional H (None) /hpf Hyaline Casts 6 H (0-2) /lpf Urine Mucus Occasional H (None) /hpf Microbiology - Last 24 Hours (Table) 10/28/18 00:02 Urine Culture - Preliminary Urine,Voided Laboratory Results WBC 3.3 k/uL (3.8-10.6) L 10/28/18 00:02 RBC 2.68 m/uL (3.80-5.40) L 10/28/18 00:02 Hgb 8.9 gm/dL (11.4-16.0) L 10/28/18 00:02 Hct 25.7 % (34.0-46.0) L 10/28/18 00:02 MCV 96.0 fL (80.0-100.0) 10/28/18 00:02 MCH 33.1 pg (25.0-35.0) 10/28/18 00:02 MCHC 34.5 g/dL (31.0-37.0) 10/28/18 00:02 RDW 13.0 % (11.5-15.5) 10/28/18 00:02 Plt Count 135 k/uL (150-450) L 10/28/18 00:02 Neutrophils % (Manual) 44 % 10/28/18 00:02 Band Neutrophils % 1 % 10/28/18 00:02 Lymphocytes % (Manual) 43 % 10/28/18 00:02 Monocytes % (Manual) 12 % 10/28/18 00:02 Neutrophils # (Manual) 1.40 k/uL (1.3-7.7) 10/28/18 00:02 Lymphocytes # (Manual) 1.42 k/uL (1.0-4.8) 10/28/18 00:02 Monocytes # (Manual) 0.40 k/uL (0-1.0) 10/28/18 00:02 Nucleated RBCs 0 /100 WBC (0-0) 10/28/18 00:02 Manual Slide Review Performed 10/28/18 00:02 Hypersegmented Neuts Present 10/28/18 00:02 Large Platelets Present 10/28/18 00:02 Polychromasia Present 10/28/18 00:02 Poikilocytosis (manual Present 10/28/18 00:02 Anisocytosis (manual) Present 10/28/18 00:02 PT 10.0 sec (9.0-12.0) 10/28/18 00:02 INR 0.9 (<1.2) 10/28/18 00:02 APTT 23.0 sec (22.0-30.0) 10/28/18 00:02 Sodium 138 mmol/L (137-145) 10/28/18 00:02 Potassium 3.6 mmol/L (3.5-5.1) 10/28/18 00:02 Chloride 108 mmol/L (98-107) H 10/28/18 00:02 Carbon Dioxide 25 mmol/L (22-30) 10/28/18 00:02 Anion Gap 5 mmol/L 10/28/18 00:02 BUN 14 mg/dL (7-17) 10/28/18 00:02 Creatinine 0.95 mg/dL (0.52-1.04) 10/28/18 00:02 Est GFR (CKD-EPI)AfAm 73 (>60 ml/min/1.73 sqM) 10/28/18 00:02 Est GFR (CKD-EPI)NonAf 63 (>60 ml/min/1.73 sqM) 10/28/18 00:02 Glucose 96 mg/dL (74-99) 10/28/18 00:02 Plasma Lactic Acid [place] 0.7 mmol/L (0.7-2.0) 10/28/18 04:00 Calcium 7.5 mg/dL (8.4-10.2) L 10/28/18 00:02 Phosphorus 2.8 mg/dL (2.5-4.5) 10/28/18 00:02 Magnesium 1.1 mg/dL (1.6-2.3) L 10/28/18 00:02 Total Bilirubin 0.3 mg/dL (0.2-1.3) 10/28/18 00:02 AST 26 U/L (14-36) 10/28/18 00:02 ALT 25 U/L (9-52) 10/28/18 00:02 Alkaline Phosphatase 60 U/L (38-126) 10/28/18 00:02 Creatine Kinase 25 U/L (30-135) L 10/28/18 00:02 Troponin I <0.012 ng/mL (0.000-0.034) 10/28/18 00:02 Total Protein 5.2 g/dL (6.3-8.2) L 10/28/18 00:02 Albumin 2.8 g/dL (3.5-5.0) L 10/28/18 00:02 Urine Color Yellow 10/28/18 00:02 Urine Appearance Cloudy (Clear) H 10/28/18 00:02 Urine pH 5.5 (5.0-8.0) 10/28/18 00:02 Ur Specific [place] 1.016 (1.001-1.035) 10/28/18 00:02 Urine Protein 1+ (Negative) H 10/28/18 00:02 Urine Glucose (UA) Negative (Negative) 10/28/18 00:02 Urine Ketones Negative (Negative) 10/28/18 00:02 Urine Blood Moderate (Negative) H 10/28/18 00:02 Urine Nitrite Negative (Negative) 10/28/18 00:02 Urine Bilirubin Negative (Negative) 10/28/18 00:02 Urine Urobilinogen <2.0 mg/dL (<2.0) 10/28/18 00:02 Ur Leukocyte Esterase Large (Negative) H 10/28/18 00:02 Urine RBC 28 /hpf (0-5) H 10/28/18 00:02 Urine WBC 117 /hpf (0-5) H 10/28/18 00:02 Urine WBC Clumps Occasional /hpf (None) H 10/28/18 00:02 Ur Squamous Epith Cells 8 /hpf (0-4) H 10/28/18 00:02 Amorphous Sediment Occasional /hpf (None) H 10/28/18 00:02 Urine Bacteria Occasional /hpf (None) H 10/28/18 00:02 Hyaline Casts 6 /lpf (0-2) H 10/28/18 00:02 Urine Mucus Occasional /hpf (None) H 10/28/18 00:02 Microbiology 10/28/18 00:02 Urine,Voided Urine Culture - Preliminary Urine culture 09/14/2018 Enterococcus faecalis and faecium not VRE Assessment and Plan (1) Antineoplastic chemotherapy induced anemia Current Visit: No Status: Acute Priority: Medium Code(s): D64.81 - ANEMIA DUE TO ANTINEOPLASTIC CHEMOTHERAPY; T45.1X5A - ADVERSE EFFECT OF ANTINEOPLASTIC AND IMMUNOSUP DRUGS, INIT SNOMED Code(s): 032992747 (2) Ovarian cancer Current Visit: No Status: Acute Code(s): C56.9 - MALIGNANT NEOPLASM OF UNSPECIFIED OVARY SNOMED Code(s): 228132626 (3) UTI (urinary tract infection) Narrative/Plan: 63 -year-old woman who has a history of ovarian cancer and 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 It appears that her last stent exchange was in July 2018. Since that point in time she's had a couple of episodes of urinary infection. She is just completed a course of Invanz and did quite well. Shortly after stopping the antibiotic therapy though her symptoms have recurred and now she has a temperature 101.5 and feels quite poorly. Neurological evaluation is in process. An ultrasound of the kidneys has been requested to evaluate for any internal worsening mass effect or hydronephrosis. Fretz microbial therapy given her history of enterococcal infection vancomycin will be utilized for now with no evidence of any acute renal failure at this time. She does have evidence of some low albumin and would do well to have improved protein intake to help her recover in the face of underlying malignancy and infection. Cultures are pending which will further help direct the course of antibiotic therapy during his stay and then also for discharge. Patient's goal is to be infection free as quickly as possible to move onto her next course of chemotherapy. She may require a stent exchange. Fever has improved. Does have some relative leukopenia likely related to the current courses of chemotherapy. Current Visit: No Status: Acute Priority: High Code(s): N39.0 - URINARY TR ACT INFECTION, SITE NOT SPECIFIED SNOMED Code(s): 70269401
[2018-10-28] MEDS: ONDANSETRON 4 MG TAB PO PRN (16:09)
[2018-10-28] MEDS: GABAPENTIN 300 MG CAP PO SCH ×2 (16:10→21:27)
[2018-10-28] MEDS: TAMSULOSIN 0.4 MG CAP.ER.24H PO SCH (21:27)
[2018-10-28] MEDS: ZOLPIDEM 5 MG TAB PO SCH (23:05)
[2018-10-29] MEDS: HYDROmorphone 1 MG/ML 1 ML SYRINGE IVP PRN ×5 (01:22→20:10)
[2018-10-29] MEDS: ONDANSETRON 4 MG TAB PO PRN ×2 (07:48→18:05)
[2018-10-29] MEDS: GABAPENTIN 300 MG CAP PO SCH ×3 (08:18→22:16)
[2018-10-29] MEDS: ESCITALOPRAM 20 MG TAB PO SCH (08:18)
[2018-10-29] MEDS: DILTIAZEM CD 120 MG CAP.ER.24H PO SCH (08:18)
[2018-10-29] MEDS: PANTOPRAZOLE 40 MG TABLET PO SCH (08:18)
--- NOTE | 2018-10-29 09:08 | US ---
EXAMINATION TYPE: US abdomen comp/pelvis limited DATE OF EXAM: 10/29/2018 COMPARISON: 07/15/2018 CLINICAL HISTORY: 63-year-old female ovarian CA with right ureter obstruction, fever. GB removed x [place] years ago, Right back pain, No hx of renal stones, hx right renal stent x 2-3 months-- patient sta sea doesn't know why it was placed in TECHNIQUE: Multiple sonographic images of the abdomen and bladder are obtained. FINDINGS: EXAM MEASUREMENTS: Liver Length: 17.9 cm CBD: 1.1 cm CHD: 1.0 cm Spleen: 12.3 cm Right Kidney: 10.7 x 4.6 x 4.8 cm Left Kidney: 11.3 x 3.8 x 5.1 cm Pancreas: Tail not well visualized. Main pancreatic duct = 1.6 mm, within acceptable limits. Liver: Upper limites of normal in size Gallbladder: Surgically absent CBD: Dilated, likely chronic in this patient status post cholecystectomy. Review of the patient's cassandra or study shows slightly larger caliber at that time. Spleen: wnl Right Kidney: Stent visualized. Moderate hydronephrosis. Left Kidney: wnl Upper IVC: wnl Abd Aorta: No AAA visualized Bladder: distended, stent seen, no gross abnormality Left Jet Seen IMPRESSION: 1. Moderate right-sided hydronephrosis with a ureteral stent. The right ureteral jet is not visualize d. 2. Dilated bile duct at 1.1 cm, overall smaller in caliber from 07/15/2018. Likely normal in this patie nt status post cholecystectomy.
[2018-10-29] MEDS: SODIUM CHLORIDE 0.9% 1,000 ML IV SCH ×2 (10:44→20:05)
--- NOTE | 2018-10-29 12:34 | PN ---
PROGRESS NOTE CHIEF COMPLAINT: Chronic and persistent urinary tract infection with right ureteral stent. HISTORY OF PRESENT ILLNESS: This lady is feeling about the same, but she still has a right-sided abdominal pain. There is discussion about removing the stent and replacing it with a new one. REVIEW OF SYSTEMS: She has had no chest pain, shortness of breath, fever, chills, etc. PHYSICAL EXAMINATION: Chest is clear. Cardiac exam is normal. Abdomen is soft. There is a slight fullness in the lower abdomen. IMPRESSION: 1. Chronic urinary tract infection. 2. Right ureteral stent. 3. Obstructive nephropathy. 4. Carcinoma of the ovary. PLAN: 1. Continue with IV fluids and antibiotics. 2. She remains in isolation because of her history of VRE. 3. Urology consult. MMODL / IJN: [id number] /
[2018-10-29] MEDS: HYDROcodone/APAP 5-325MG 1 EACH TAB PO PRN (18:07)
[2018-10-29] MEDS: TAMSULOSIN 0.4 MG CAP.ER.24H PO SCH (22:16)
[2018-10-29] MEDS: ZOLPIDEM 5 MG TAB PO SCH (23:03)
--- NOTE | 2018-10-29 23:16 | P.PN ---
Subjective Progress Note Date: 10/29/18 63 -year-old female who has a history of ovarian carcinoma has been receiving outpatient chemotherapy regarding her extensive disease. She was recently hospitalized last month at which point in time she had a urinary tract infection, and has been treated with a two-week course of Invanz which she tolerated very well. She complete resolution of her symptoms and was feeling quite well. However within days of discontinuation of her antibiotic therapy she started to have some dysuria, this progressed in severity and frequency over the following days. By the weekend she was feeling quite poorly that she started to develop evidence of fever she had 101.5 which is quite unusual for her in consequently sought care in the emergency center. With concerns to resistant pathogens the consult was initiated. She relates since coming to hospital she seemed to slightly better but still has distinct dysuria and frequency. She has chronic lower abdominal pain thought to be related to ovarian cancer. She's had no vaginal bleeding. She's having no difficulty with the Eheyjz-v-Anhl in the right anterior chest wall. She is hoping to be well in nature. At times she does not miss her next course of chemotherapy. She does relate that she was seen by the urologist in the outpatient setting recently and there were no new plans of dealing with stent exchange. 10/29/2018 patient continues to feel poorly. Fever though he has drainage improvement. She denying nausea or emesis. No notation of urological surgical evaluation Objective - Vital Signs Vital signs: Vital Signs Temp 97.9 F 10/29/18 11:14 Pulse 82 10/29/18 11:14 Resp 16 10/29/18 11:14 BP 136/80 10/29/18 11:14 Pulse Ox 97 10/29/18 11:14 Intake & Output 10/29/18 10/29/18 10/30/18 06:59 18:59 06:59 Intake Total 1440 800 Balance 1440 800 Intake: Intake, IV Titration 1200 800 Amount Sodium Chloride 0.9% 1, 1200 800 000 ml @ 100 mls/hr IV . Q10H [facility] Rx#:[id number] Oral 240 Other: Voiding Method Toilet Toilet # Voids 2 4 - Exam 63-year-old female presents to Hospital from home with the several-day history of increasing symptoms of dysuria and fever. HEENT: Anicteric conjunctiva are pink and moist nasal mucosa grossly intact without significant lesions, there is no thrush. Neck: The neck is supple without significant lymphadenopathy or thyromegaly. Lungs: Good bilateral air entry without significant crackles or wheezing. There is no significant bronchial sounds. There is no egophony or dullness. Heart: Regular rate and rhythm with an audible S1-S2, no S3 no S4. There is no significant murmur click or rub, PMI was nondisplaced. Abdomen: Positive bowel sounds soft has tenderness in the suprapubic area without palpable masses or organomegaly. There was no guarding or rebound. Does have some bilateral flank tenderness but no swelling or bruising is noted Extremities: The upper extremities have excellent pulses they are symmetric, no significant petechiae or telangiectasia. No splinter hemorrhages were noted. The lower extremities are free from significant edema. The peripheral pulses were 2+ and symmetric. Neuro: Awake alert oriented to person place and time. There are no acute new gross focal sensory motor deficits. - Labs CBC & Chem 7: 10/28/18 00:02 10/28/18 00:02 Labs: Microbiology - Last 24 Hours (Table) 10/28/18 00:02 Urine Culture - Preliminary Urine,Voided Gram Neg Bacilli 10/28/18 04:00 Blood Culture - Preliminary Blood No Growth after 24 hours 10/28/18 00:02 Blood Culture - Preliminary Blood No Growth after 24 hours Laboratory Results WBC 3.3 k/uL (3.8-10.6) L 10/28/18 00:02 RBC 2.68 m/uL (3.80-5.40) L 10/28/18 00:02 Hgb 8.9 gm/dL (11.4-16.0) L 10/28/18 00:02 Hct 25.7 % (34.0-46.0) L 10/28/18 00:02 MCV 96.0 fL (80.0-100.0) 10/28/18 00:02 MCH 33.1 pg (25.0-35.0) 10/28/18 00:02 MCHC 34.5 g/dL (31.0-37.0) 10/28/18 00:02 RDW 13.0 % (11.5-15.5) 10/28/18 00:02 Plt Count 135 k/uL (150-450) L 10/28/18 00:02 Neutrophils % (Manual) 44 % 10/28/18 00:02 Band Neutrophils % 1 % 10/28/18 00:02 Lymphocytes % (Manual) 43 % 10/28/18 00:02 Monocytes % (Manual) 12 % 10/28/18 00:02 Neutrophils # (Manual) 1.40 k/uL (1.3-7.7) 10/28/18 00:02 Lymphocytes # (Manual) 1.42 k/uL (1.0-4.8) 10/28/18 00:02 Monocytes # (Manual) 0.40 k/uL (0-1.0) 10/28/18 00:02 Nucleated RBCs 0 /100 WBC (0-0) 10/28/18 00:02 Manual Slide Review Performed 10/28/18 00:02 Hypersegmented Neuts Present 10/28/18 00:02 Large Platelets Present 10/28/18 00:02 Polychromasia Present 10/28/18 00:02 Poikilocytosis (manual Present 10/28/18 00:02 Anisocytosis (manual) Present 10/28/18 00:02 PT 10.0 sec (9.0-12.0) 10/28/18 00:02 INR 0.9 (<1.2) 10/28/18 00:02 APTT 23.0 sec (22.0-30.0) 10/28/18 00:02 Sodium 138 mmol/L (137-145) 10/28/18 00:02 Potassium 3.6 mmol/L (3.5-5.1) 10/28/18 00:02 Chloride 108 mmol/L (98-107) H 10/28/18 00:02 Carbon Dioxide 25 mmol/L (22-30) 10/28/18 00:02 Anion Gap 5 mmol/L 10/28/18 00:02 BUN 14 mg/dL (7-17) 10/28/18 00:02 Creatinine 0.95 mg/dL (0.52-1.04) 10/28/18 00:02 Est GFR (CKD-EPI)AfAm 73 (>60 ml/min/1.73 sqM) 10/28/18 00:02 Est GFR (CKD-EPI)NonAf 63 (>60 ml/min/1.73 sqM) 10/28/18 00:02 Glucose 96 mg/dL (74-99) 10/28/18 00:02 Plasma Lactic Acid Chad 0.7 mmol/L (0.7-2.0) 10/28/18 04:00 Calcium 7.5 mg/dL (8.4-10.2) L 10/28/18 00:02 Phosphorus 2.8 mg/dL (2.5-4.5) 10/28/18 00:02 Magnesium 1.1 mg/dL (1.6-2.3) L 10/28/18 00:02 Total Bilirubin 0.3 mg/dL (0.2-1.3) 10/28/18 00:02 AST 26 U/L (14-36) 10/28/18 00:02 ALT 25 U/L (9-52) 10/28/18 00:02 Alkaline Phosphatase 60 U/L (38-126) 10/28/18 00:02 Creatine Kinase 25 U/L (30-135) L 10/28/18 00:02 Troponin I <0.012 ng/mL (0.000-0.034) 10/28/18 00:02 Total Protein 5.2 g/dL (6.3-8.2) L 10/28/18 00:02 Albumin 2.8 g/dL (3.5-5.0) L 10/28/18 00:02 Urine Color Yellow 10/28/18 00:02 Urine Appearance Cloudy (Clear) H 10/28/18 00:02 Urine pH 5.5 (5.0-8.0) 10/28/18 00:02 Ur Specific [place] 1.016 (1.001-1.035) 10/28/18 00:02 Urine Protein 1+ (Negative) H 10/28/18 00:02 Urine Glucose (UA) Negative (Negative) 10/28/18 00:02 Urine Ketones Negative (Negative) 10/28/18 00:02 Urine Blood Moderate (Negative) H 10/28/18 00:02 Urine Nitrite Negative (Negative) 10/28/18 00:02 Urine Bilirubin Negative (Negative) 10/28/18 00:02 Urine Urobilinogen <2.0 mg/dL (<2.0) 10/28/18 00:02 Ur Leukocyte Esterase Large (Negative) H 10/28/18 00:02 Urine RBC 28 /hpf (0-5) H 10/28/18 00:02 Urine WBC 117 /hpf (0-5) H 10/28/18 00:02 Urine WBC Clumps Occasional /hpf (None) H 10/28/18 00:02 Ur Squamous Epith Cells 8 /hpf (0-4) H 10/28/18 00:02 Amorphous Sediment Occasional /hpf (None) H 10/28/18 00:02 Urine Bacteria Occasional /hpf (None) H 10/28/18 00:02 Hyaline Casts 6 /lpf (0-2) H 10/28/18 00:02 Urine Mucus Occasional /hpf (None) H 10/28/18 00:02 Microbiology 10/28/18 00:02 Urine,Voided Urine Culture - Preliminary Gram Neg Bacilli 10/28/18 04:00 Blood Blood Culture - Preliminary No Growth after 24 hours 10/28/18 00:02 Blood Blood Culture - Preliminary No Growth after 24 hours - Imaging and Cardiology US - abdomen: report reviewed (Right-sided hydronephrosis stent in place) Assessment and Plan (1) Antineoplastic chemotherapy induced anemia Current Visit: No Status: Acute Priority: Medium Code(s): D64.81 - ANEMIA DUE TO ANTINEOPLASTIC CHEMOTHERAPY; T45.1X5A - ADVERSE EFFECT OF ANTINEOPLASTIC AND IMMUNOSUP DRUGS, INIT SNOMED Code(s): 787202050 (2) Ovarian cancer Current Visit: No Status: Acute Code(s): C56.9 - MALIGNANT NEOPLASM OF UNS PECIFIED OVARY SNOMED Code(s): 010301059 (3) UTI (urinary tract infection) Narrative/Plan: 63 -year-old woman who has a history of ovarian cancer and 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 It appears that her last stent exchange was in July 2018. Since that point in time she's had a couple of episodes of urinary infection. She is just completed a course of Invanz and did quite well. Shortly after stopping the antibiotic therapy though her symptoms have recurred and now she has a temperature 101.5 and feels quite poorly. Neurological evaluation is in process. An ultrasound of the kidneys has been requested to evaluate for any internal worsening mass effect or hydronephrosis. Anti- microbial therapy given her history of enterococcal infection vancomycin will be utilized for now with no evidence of any acute renal failure at this time. She does have evidence of some low albumin and would do well to have improved protein intake to help her recover in the face of underlying malignancy and infection. Cultures are pending which will further help direct the course of antibiotic therapy during his stay and then also for discharge. Patient's goal is to be infection free as quickly as possible to move onto her next course of chemotherapy. She may require a stent exchange. Fever has improved. Does have some relative leukopenia likely related to the current courses of chemotherapy. 10/29/2018 Urine culture reveals evidence of gram-negative bacilli await the final identification, continue current antibiotic therapy with Rocephin until further identification occurs. Current Visit: Yes Status: Acute Priority: High Code(s): N39.0 - URINARY TRACT INFECTION, SITE NOT SPECIFIED SNOMED Code(s): 29554200
[2018-10-30] MEDS: HYDROmorphone 1 MG/ML 1 ML SYRINGE IVP PRN ×5 (00:27→20:55)
[2018-10-30] MEDS: PANTOPRAZOLE 40 MG TABLET PO SCH (08:23)
[2018-10-30] MEDS: DILTIAZEM CD 120 MG CAP.ER.24H PO SCH (08:23)
[2018-10-30] MEDS: ESCITALOPRAM 20 MG TAB PO SCH (08:23)
[2018-10-30] MEDS: SODIUM CHLORIDE 0.9% 1,000 ML IV SCH ×3 (08:23→23:33)
[2018-10-30] MEDS: GABAPENTIN 300 MG CAP PO SCH ×3 (08:23→21:00)
[2018-10-30] MEDS: ONDANSETRON 4 MG TAB PO PRN ×2 (08:26→16:43)
[2018-10-30 10:27] LABS: HCT 23.8 % (34.0-46.0); HGB 8.1 gm/dL (11.4-16.0); MCHC 34.1 g/dL (31.0-37.0); MCV 96.9 fL (80.0-100.0); Mean Platelet Volume 8.7; Platelet Count 130 k/uL (150-450); RBC 2.45 m/uL (3.80-5.40); RDW 13.8 % (11.5-15.5); WBC 3.1 k/uL (3.8-10.6)
[2018-10-30 10:36] LABS: Calcium 8.9 mg/dL (8.4-10.2); Magnesium 1.1 mg/dL (1.6-2.3); Potassium 3.9 mmol/L (3.5-5.1)
[2018-10-30 12:14] LABS: Band Neutrophils % 2 %; Basophils # (M) 0.03 k/uL (0-0.2); Eosinophils # (M) 0.12 k/uL (0-0.7); Monocytes # (M) 0.53 k/uL (0-1.0); Neutrophils % (M) 47 %; Nucleated Red Blood Cells 0 /100 WBC (0-0); Total Cells Counted 100
[2018-10-30] MEDS: MAGNESIUM SULFATE-D5W PMX 1 GM in DEXTROSE/WATER 1 100ML.BAG IVPB SCH ×3 (12:35→16:41)
[2018-10-30] MEDS: HYDROcodone/APAP 5-325MG 1 EACH TAB PO PRN ×2 (14:48→23:01)
[2018-10-30] MEDS: TAMSULOSIN 0.4 MG CAP.ER.24H PO SCH (20:59)
[2018-10-30] MEDS: ZOLPIDEM 5 MG TAB PO SCH (23:00)
--- NOTE | 2018-10-30 23:23 | P.PN ---
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 Wound cultures growing Klebsiella. Currently being treated with ciprofloxacin. ID is following. Patient denied any complaints of abdominal pain today. No fever no chills. Complaining of some back pain. Otherwise able to ambulate to the bathroom. No complaints of chest pain or shortness of breath. Ultrasound of abdominal moderate sized hydronephrosis right-sided with the ureteral stent. The right ureteral jet is not visualized. Urology was consulted. Current medications reviewed. Objective - Vital Signs Vital signs: Vital Signs Temp 98.7 F 10/30/18 05:00 Pulse 71 10/30/18 05:00 Resp 18 10/30/18 05:00 BP 112/57 10/30/18 05:00 Pulse Ox 96 10/30/18 05:00 Intake & Output 10/29/18 10/30/18 10/30/18 18:59 06:59 18:59 Intake Total 800 1390 Balance 800 1390 Intake: Intake, IV Titration 800 800 Amount Sodium Chloride 0.9% 1, 800 800 000 ml @ 100 mls/hr IV . Q10H [facility] Rx#:[id number] Oral 590 Other: Voiding Method Toilet Toilet # Voids 4 2 - Exam PHYSICAL EXAMINATION: Patient is lying in the bed comfortably, no acute distress, awake alert and oriented.. HEENT: Normocephalic. Neck is supple. Pupils reactive. Nostrils clear. Oral cavity is moist. Ears reveal no drainage. Neck reveals no JVD, carotid bruits, or thyromegaly. CHEST EXAMINATION: Trachea is central. Symmetrical expansion. Lung zavaleta clear to auscultation and percussion. CARDIAC: Normal S1, S2 with no gallops. No murmurs ABDOMEN: Soft. Bowel sounds normal. No organomegaly. No abdominal bruits. Extremities: reveal no edema. No clubbing or cyanosis Neurologically awake, alert, oriented x3 with well-coordinated movements. No focal deficits noted Skin: No rash or skin lesions. Psychiatric: Coperative. Nonsuicidal Musculoskeletal: No joint swelling or deformity. Normal range of motion. - Labs CBC & Chem 7: 10/30/18 09:35 10/30/18 09:35 Labs: Abnormal Lab Results - Last 24 Hours (Table) 10/30/18 10/30/18 Range/Units 09:35 09:35 WBC 3.1 L (3.8-10.6) k/uL RBC 2.45 L (3.80-5.40) m/uL Hgb 8.1 L (11.4-16.0) gm/dL Hct 23.8 L (34.0-46.0) % Plt Count 130 L (150-450) k/uL Chloride 108 H (98-107) mmol/L BUN 6 L (7-17) mg/dL Glucose 110 H (74-99) mg/dL Magnesium 1.1 L (1.6-2.3) mg/dL Microbiology - Last 24 Hours (Table) 10/28/18 00:02 Urine Culture - Final Urine,Voided Klebsiella pneumoniae 10/28/18 04:00 Blood Culture - Preliminary Blood No Growth after 48 hours 10/28/18 00:02 Blood Culture - Preliminary Blood No Growth after 48 hours Assessment and Plan Assessment: Acute recurrent urinary tract infection Klebsiella pneumoniae UTI 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 Ovarian cancer. Currently undergoing chemotherapy Anemia secondary to chemotherapy DVT prophylaxis Plan: Patient will be continued on IV hydration. Continue with antibiotics in the form of ceftriaxone. Urine culture showed Klebsiella. ID is on board. Due to hydronephrosis and recurrent UTI, urology will be consulted for possible stent exchange. Further recommendations based on the clinical course. Otherwise continue the current management. Prognosis is guarded. Time with Patient: Greater than 30
[2018-10-30] MEDS: ACETAMINOPHEN TAB 325 MG TAB PO PRN (23:56)
[2018-10-31] MEDS: HYDROmorphone 1 MG/ML 1 ML SYRINGE IVP PRN ×5 (01:05→20:51)
[2018-10-31] MEDS: DILTIAZEM CD 120 MG CAP.ER.24H PO SCH (07:46)
[2018-10-31] MEDS: ESCITALOPRAM 20 MG TAB PO SCH (07:46)
[2018-10-31] MEDS: GABAPENTIN 300 MG CAP PO SCH ×3 (07:46→20:51)
[2018-10-31] MEDS: PANTOPRAZOLE 40 MG TABLET PO SCH (07:46)
[2018-10-31] MEDS: ONDANSETRON 4 MG TAB PO PRN ×2 (12:38→19:55)
[2018-10-31] MEDS: HYDROcodone/APAP 5-325MG 1 EACH TAB PO PRN ×2 (15:09→23:37)
[2018-10-31] MEDS: SODIUM CHLORIDE 0.9% 1,000 ML IV SCH ×2 (15:16→20:55)
[2018-10-31] MEDS: TAMSULOSIN 0.4 MG CAP.ER.24H PO SCH (20:51)
[2018-10-31] MEDS: ZOLPIDEM 5 MG TAB PO SCH (20:51)
--- NOTE | 2018-10-31 21:10 | P.GSCN ---
History of Present Illness Consult date: 10/31/18 Reason for Consult: Right hydronephrosis History of present illness: The patient is a 63-year-old female admitted on 10/27/2018 for evaluation of right flank pain and a temperature of 101.5. The patient said that she had been experiencing increased urinary frequency and cloudy urine for several days prior to being admitted. At the time of admission she was noted to have a white blood count of 3300, BUN 14 and creatinine 0.9. Urinalysis suggested a possible urinary tract infection and the patient has been started on ceftriaxone. Urine c ulture obtained has grown Klebsiella pneumonia which is sensitive to ceftriaxone. Renal ultrasound shows evidence of right hydronephrosis. Urologic consultation was requested. She continues to have intermittent right flank pain and to some degree left flank pain. She has also been experiencing nausea and vomiting and feels like she is bloated. She has had recent episodes of diarrhea which she attributes to her IV antibiotic treatment. The patient has a history of ovarian cancer which has been present for over 10 years and recurred in the right retroperitoneum and resulted in right hydron ephrosis. Patient was evaluated by Dr. Unger in 10/2017 and underwent placement of a right double-J catheter. She had several enterococcus urinary tract infections over the fall of 2017. Her right double-J catheter was exchanged in [facility] in 04/2018. The stent was last exchanged by Dr. Unger in late 07/2018. She had several enterococcus urinary tract infections this spring and recently finished IV Invanz as antibiotic treatment approximately 2 weeks ago. Urine culture on 10/09 and again on 10/22 showed no growth. She says she finished her last round of chemotherapy 3 or [address] scan of the abdomen and pelvis on 10/01 showed no evidence of right hydronephrosis and good position of the right double-J catheter. Patient was last seen by Dr. Unger on 10/22 and at that time she was complaining of urinary frequency which have not responded well to Myrbetriq and tamsulosin. She was given a prescription for Vesicare 5 mg daily to be used if the frequency persisted. Review of Systems - Constitutional Reports chills, Reports fatigue, Reports fever - Respiratory Denies cough - Gastrointestinal Reports diarrhea, Reports nausea, Reports vomiting Past Medical History Past Medical History: Cancer, Deep Vein Thrombosis (DVT) Additional Past Medical History / Comment(s): 2006 Ovarian cancer with surgery/chemo, reoccurrance ovarian cancer 08/2017 with abdominal mets and receiving chemo, recurrent admissions for UTI/SBO/Ureteral Obstruction in 2017, R leg DVT 2014, bilateral TMJ with surgery/pins.IBS, History of Any Multi-Drug Resistant Organisms: VRE Year Discovered:: 01/26/18 MDRO Source:: urine Past Surgical History: Heart Catheterization With Stent, Hysterectomy Additional Past Surgical History / Comment(s): ovarian cancer with bilateral oopherectomy/hysterectomy 2005; 2 open exploratory abdominal surgery, R chest mediport placed 2011, bilateral retrograde pyelogram cystoscopy with R ureter stent, jaws have pins d/t surgery for TMJ, colonoscopy, Past Anesthesia/Blood Transfusion Reactions: No Reported Reaction Additional Past Anesthesia/Blood Transfusion Reaction / Comm: Pt has received blood in past without reaction. Date of Last Stent Placement:: 2011 Past Psychological History: Anxiety, Depression Smoking Status: Never smoker Past Alcohol Use History: None Reported Past Drug Use History: None Reported - Past Family History Mother Family Medical History: Diabetes Mellitus Brother(s) Family Medical History: Cancer Additional Family Medical History / Comment(s): lung cancer- since passed Sister(s) Family Medical History: CVA/TIA Father Family Medical History: Dementia, Neurologic Disorder Additional Family Medical History / Comment(s): alzheimers Medications and Allergies Home Medications Medication Instructions Recorded Confirmed Type ALPRAZolam [Xanax] 0.25 mg PO HS PRN 08/25/14 10/27/18 History Diltiazem HCl [Diltiazem 24Hr ER] 120 mg PO DAILY 08/25/14 10/27/18 History Gabapentin [Neurontin] 300 mg PO TID 10/17/17 10/27/18 History Escitalopram [Lexapro] 20 mg PO DAILY 06/30/18 10/27/18 History Esomeprazole Magnesium [NexIUM] 20 mg PO DAILY 07/12/18 10/27/18 History Ondansetron HCl [Zofran] 8 mg PO Q8H PRN 09/14/18 10/27/18 History Tamsulosin [Flomax] 0.4 mg PO HS 09/14/18 10/27/18 History Zolpidem [Ambien] 5 mg PO HS 09/14/18 10/27/18 History Hydrocodone/Acetaminophen [[place] 1 tab PO QID PRN 10/04/18 10/27/18 History 5-325] Allergies Allergy/AdvReac Type Severity Reaction Status Date / Time adhesive Allergy Rash/Hives Verified 10/27/18 23:16 carboplatin Allergy Anaphylaxis Verified 10/27/18 23:16 iodine Allergy Rash/Hives Verified 10/27/18 23:16 Penicillins Allergy Rash/Hives Verified 10/27/18 23:16 codeine AdvReac Nausea & Verified 10/27/18 23:16 Vomiting morphine AdvReac Nausea & Verified 10/27/18 23:16 Vomiting Surgical - Exam Vital Signs Temp Pulse Resp BP Pulse Ox 101.5 F H 77 18 115/76 96 10/27/18 22:41 10/27/18 22:41 10/27/18 22:41 10/27/18 22:41 10/27/18 22:41 - General well developed, well nourished, no distress - Neck no masses, no lymphadectomy - Respiratory normal respiratory effort - Abdomen Abdomen: soft, tender, no organomegaly Hernia: none Results - Labs 10/30/18 09:35 10/30/18 09:35 Abnormal Lab Results - Last 24 Hours (Table) 10/31/18 Range/Units 09:23 Magnesium 1.5 L (1.6-2.3) mg/dL Microbiology - Last 24 Hours (Table) 10/28/18 04:00 Blood Culture - Preliminary Blood No Growth after 72 hours 10/28/18 00:02 Blood Culture - Preliminary Blood No Growth after 72 hours Assessment and Plan Assessment: The patient's renal ultrasound was reviewed and she does appear to have right hydronephrosis which was not present at the time of the CT scan on 10/01/2018. Although it would be unusual for a double-J catheter to occlude this quickly she has had several urinary tract infections over the spring and it is possible that this has lead to occlusion of the catheter. She does have intermittent right fl ank pain coupled with nausea and vomiting which may all be related to the hydronephrosis. She has a Klebsiella pneumonia urinary tract infection and treatment of this may be compromised by persistent hydronephrosis. The patient will be reevaluated by Dr. Unger tomorrow and he may wish to exchange the double-J catheter.
[2018-11-01] MEDS: HYDROmorphone 1 MG/ML 1 ML SYRINGE IVP PRN ×6 (01:07→23:48)
[2018-11-01] MEDS: SODIUM CHLORIDE 0.9% 1,000 ML IV SCH ×2 (05:21→18:18)
[2018-11-01] MEDS: HYDROcodone/APAP 5-325MG 1 EACH TAB PO PRN ×2 (09:43→18:17)
[2018-11-01] MEDS: GABAPENTIN 300 MG CAP PO SCH ×3 (09:43→21:16)
[2018-11-01] MEDS: PANTOPRAZOLE 40 MG TABLET PO SCH (09:43)
[2018-11-01] MEDS: ESCITALOPRAM 20 MG TAB PO SCH (09:44)
[2018-11-01] MEDS: DILTIAZEM CD 120 MG CAP.ER.24H PO SCH (09:44)
--- NOTE | 2018-11-01 18:29 | P.PN ---
Progress Note - Text Progress Note Date: 11/01/18 Mrs. Galloway is more comfortable today. She continues to report mild right lower back discomfort. She is afebrile. A recent urine culture has shown a Klebsiella UTI. She is currently receiving Rocephin. Given the fact that the stent has been in place for 3 months and that the recent ultrasound shows evidence of right hydronephrosis, she has been scheduled to undergo cystoscopy with right ureteral stent change tomorrow.
[2018-11-01] MEDS: ZOLPIDEM 5 MG TAB PO SCH (21:16)
[2018-11-01] MEDS: TAMSULOSIN 0.4 MG CAP.ER.24H PO SCH (21:16)
--- NOTE | 2018-11-02 00:13 | P.PN ---
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 Wound cultures growing Klebsiella. Currently being treated with ciprofloxacin. ID is following. Patient denied any complaints of abdominal pain today. No fever no chills. Complaining of some back pain. Otherwise able to ambulate to the bathroom. No complaints of chest pain or shortness of breath. Ultrasound of abdominal moderate sized hydronephrosis right-sided with the ureteral stent. The right ureteral jet is not visualized. Urology was consulted. 10/31/2018 Patient is still complaining of abdominal pain mainly right side and flank pain. Requiring IV pain medications. Patient seen by urology and is planning for stent exchange. Otherwise patient is being continued on antibiotics in the form of ceftriaxone. ID is on board. No fever no chills. No commerce of chest pain or shortness of breath. No naus ea vomiting or abdominal pain. Patient does have some diarrhea and C. diff toxin was sent.. Current medications reviewed. Objective - Vital Signs Vital signs: Vital Signs Temp 98.3 F 10/31/18 20:00 Pulse 102 H 10/31/18 20:00 Resp 18 10/31/18 20:00 BP 132/86 10/31/18 20:00 Pulse Ox 96 10/31/18 20:00 Intake & Output 10/31/18 10/31/18 11/01/18 06:59 18:59 06:59 Intake Total 1530 1640 Balance 1530 1640 Intake: Intake, IV Titration 400 1400 Amount Sodium Chloride 0.9% 1, 400 1400 000 ml @ 100 mls/hr IV . Q10H [facility] Rx#:[id number] Oral 1130 240 Other: Voiding Method Toilet Toilet # Voids 2 2 1 - Exam PHYSICAL EXAMINATION: Patient is lying in the bed comfortably, no acute distress, awake alert and orie nted.. HEENT: Normocephalic. Neck is supple. Pupils reactive. Nostrils clear. Oral cavity is moist. Ears reveal no drainage. Neck reveals no JVD, carotid bruits, or thyromegaly. CHEST EXAMINATION: Trachea is central. Symmetrical expansion. Lung zavaleta clear to auscultation and percussion. CARDIAC: Normal S1, S2 with no gallops. No murmurs ABDOMEN: Soft. Bowel sounds normal. No organomegaly. No abdominal bruits. Right flank tenderness. Extremities: reveal no edema. No clubbing or cyanosis Neurologically awake, alert, oriented x3 with well-coordinated movements. No focal deficits noted Skin: No rash or skin lesions. Psychiatric: Coperative. Nonsuicidal Musculoskeletal: No joint swelling or deformity. Normal range of motion. 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 Ovarian cancer. Currently undergoing chemotherapy Anemia secondary to chemotherapy DVT prophylaxis Plan: Patient will be continued on IV hydration. Continue with antibiotics in the form of ceftriaxone. Urine culture showed Klebsiella. ID is on board. Due to hydronephrosis and recurrent UTI, urology will be consulted for possible stent exchange. Further recommendations based on the clinical course. Otherwise continue the current management. Prognosis is guarded. Time with Patient: Greater than 30
--- NOTE | 2018-11-02 00:15 | P.PN ---
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 Wound cultures growing Klebsiella. Currently being treated with ciprofloxacin. ID is following. Patient denied any complaints of abdominal pain today. No fever no chills. Complaining of some back pain. Otherwise able to ambulate to the bathroom. No complaints of chest pain or shortness of breath. Ultrasound of abdominal moderate sized hydronephrosis right-sided with the ureteral stent. The right ureteral jet is not visualized. Urology was consulted. 10/31/2018 Patient is still complaining of abdominal pain mainly right side and flank pain. Requiring IV pain medications. Patient seen by urology and is planning for stent exchange. Otherwise patient is being continued on antibiotics in the form of ceftriaxone. ID is on board. No fever no chills. No complaints of chest pain or shortness of breath. No na usea vomiting or abdominal pain. Patient does have some diarrhea and C. diff toxin will be sent.. 11/01/2018 Patient is still complaining of abdominal pain today. Requiring IV pain medications and no complaints of fever otherwise. No chest pain or shortness of breath. C. diff toxin could not be sent due to patient does not have any further episodes of diarrhea. Patient is being continued on antibiotics the form of ceftriaxone as per ID. Urology is planning for stent exchange tomorrow. Nothing by mouth from midnight. Patient is a poor historian otherwise. Current medications reviewed. Objective - Vital Signs Vital signs: Vital Signs Temp 98.2 F 11/01/18 20:19 Pulse 68 11/01/18 20:19 Resp 18 11/01/18 20:19 BP 145/76 11/01/18 20:19 Pulse Ox 95 11/01/18 20:19 Intake & Output 11/01/18 11/01/18 11/02/18 06:59 18:59 06:59 Intake Total 800 480 Balance 800 480 Intake: Intake, IV Titration 800 Amount Sodium Chloride 0.9% 1, 750 000 ml @ 100 mls/hr IV . Q10H [facility] Rx#:[id number] cefTRIAXone 1 gm In 50 Sodium Chloride 0.9% 50 ml @ 100 mls/hr IVPB Q24H [facility] Rx#:[id number] Oral 480 Other: Voiding Method Toilet Toilet # Voids 1 2 - Exam PHYSICAL EXAMINATION: Patient is lying in the bed comfortably, no acute distress, awake alert and oriented.. HEENT: Normocephalic. Neck is supple. Pupils reactive. Nostrils clear. Oral cavity is moist. Ears reveal no drainage. Neck reveals no JVD, carotid bruits, or thyromegaly. CHEST EXAMINATION: Trachea is central. Symmetrical expansion. Lung zavaleta clear to auscultation and percussion. CARDIAC: Normal S1, S2 with no gallops. No murmurs ABDOMEN: Soft. Bowel sounds normal. No organomegaly. No abdominal bruits. Right flank tenderness. Extremities: reveal no edema. No clubbing or cyanosis Neurologically awake, alert, oriented x3 with well-coordinated movements. No focal deficits noted Skin: No rash or skin lesions. Psychiatric: Coperative. Nonsuicidal Musculoskeletal: No joint swelling or deformity. Normal range of motion. 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 Ovarian cancer. Currently undergoing chemotherapy Anemia secondary to chemotherapy DVT prophylaxis Plan: Patient will be continued on IV hydration. Continue with antibiotics in the form of ceftriaxone. Urine culture showed Klebsiella. ID is on board. Due to hydronephrosis and recurrent UTI, urology will be consulted for possible stent exchange. Further recommendations based on the clinical course. Otherwise continue the current management. Prognosis is guarded. Time with Patient: Greater than 30
[2018-11-02] MEDS: SODIUM CHLORIDE 0.9% 1,000 ML IV SCH ×3 (01:14→22:52)
[2018-11-02] MEDS: HYDROmorphone 1 MG/ML 1 ML SYRINGE IVP PRN ×4 (06:21→22:50)
[2018-11-02 08:42] LABS: Basophils % (A) 0 %; Eosinophils # (A) 0.2 k/uL (0-0.7); Eosinophils % (A) 4 %; HCT 24.2 % (34.0-46.0); HGB 8.2 gm/dL (11.4-16.0); Hypochromasia Slight; Lymphocytes # (A) 0.9 k/uL (1.0-4.8); Lymphocytes % (A) 21 %; MCH 32.8 pg (25.0-35.0); MCHC 33.9 g/dL (31.0-37.0); MCV 96.7 fL (80.0-100.0); Mean Platelet Volume 8.7; Monocytes # (A) 0.5 k/uL (0-1.0); Monocytes % (A) 11 %; Neutrophils # (A) 2.6 k/uL (1.3-7.7); Neutrophils % (A) 60 %; Platelet Count 184 k/uL (150-450); Poikilocytosis Slight; RDW 14.4 % (11.5-15.5); WBC 4.3 k/uL (3.8-10.6)
[2018-11-02 08:53] LABS: African American GFR (CKD) >90 (>60 ml/min/1.73 sqM); Anion Gap 5 mmol/L; Blood Urea Nitrogen 4 mg/dL (7-17); Calcium 8.9 mg/dL (8.4-10.2); Carbon Dioxide 30 mmol/L (22-30); Chloride 107 mmol/L (98-107); Glucose 93 mg/dL (74-99); Potassium 3.4 mmol/L (3.5-5.1); Sodium 142 mmol/L (137-145)
[2018-11-02] MEDS: ONDANSETRON 4 MG TAB PO PRN (09:11)
[2018-11-02] MEDS: HYDROcodone/APAP 5-325MG 1 EACH TAB PO PRN ×2 (09:18→17:53)
[2018-11-02] MEDS ORDERED: IV FLUID CONTINUATION 500 ML IV ONE (11:56)
[2018-11-02] MEDS ORDERED: SUCCINYLCHOLINE CHLORIDE 100 MG/5 ML SYR IV ONE (12:14)
[2018-11-02] MEDS ORDERED: fentaNYL (PF) 50 MCG/ML 2 ML AMP ONE (12:14)
[2018-11-02] MEDS ORDERED: PROPOFOL 10 MG/ML 20 ML VIAL IV ONE (12:14)
[2018-11-02] MEDS ORDERED: ePHEDrine SULFATE/0.9% NACL/PF 50 MG/5 ML SYRINGE IV ONE (12:14)
[2018-11-02] MEDS ORDERED: LIDOCAINE 1% INJ 10MG/ML (20 ML MDV) ONE (12:14)
[2018-11-02] MEDS ORDERED: MIDAZOLAM 2 MG/2 ML VIAL ONE (12:14)
--- NOTE | 2018-11-02 12:57 | P.OP ---
Date of Procedure: 11/02/18 Preoperative Diagnosis: Right hydronephrosis Postoperative Diagnosis: Same Procedure(s) Performed: Cystoscopy, right ureteral stent change Anesthesia: DIMITRISA Surgeon: Merlin Unger Estimated Blood Loss (ml): 0 IV fluids (ml): 200 Pathology: none sent Condition: stable Disposition: PACU Indications for Procedure: The patient is a 63-year-old white female with ovarian cancer, which has been treated over 10 years. She has a known right pelvic mass. Her oncologist is Dr. Aris Hurtado at [facility]. She was hospitalized in October 2017 with a serum creatinine level of 1.80, up from 0.85. She underwent cystoscopy with bilateral retrograde pyelograms. She was found to have right proximal ureteral obstruction and underwent placement of a right ureteral stent. She was treated for enterococcus VRE UTIs in October 2017 in January 2018. She denies any prior history of urolithiasis. She experienced right flank pain and was hospitalized in April 2018 at [facility]; her right ureteral stent was changed at that time. Since that time, she has experienced right flank pain and voiding symptoms. Her stent was changed most recently in July 2018, and she is now admitted with a UTI. A renal ultrasound shows evidence of right hydronephrosis, so she comes for stent change. Operative Findings: The removed stent did not appear to be occluded. Description of Procedure: The patient was taken to the operating room and placed in the dorsolithotomy position, with legs supported in Avery stirrups. The external genitalia was prepped and draped sterilely. The 30 lens was used to introduce the 22-Indonesian Stortz cystoscopic sheath through the urethra and into the bladder under direct vision. The bladder was examined in its entirety. The left ureteral orifice was of normal anatomic location and configuration, and clear urine effluxed from it. No tumors or foreign bodies were seen. Grasping forceps were used to grasp the distal end of the right ureteral stent, which was removed along with the cystoscope. A 0.035 inch Glidewire was passed through the stent and up to the right renal pelvis, where it coiled. The Glidewire was then backloaded into the cystoscope, which was passed into the bladder. A 24 cm, 6-Indonesian double-J ureteral stent was placed over the wire. Proper stent positioning was verified fluoroscopically and endoscopically. The bladder was emptied and the cystoscope removed. The patient tolerated the procedure well was taken to the recovery room in stable condition.
[2018-11-02] MEDS ORDERED: LACTATED RINGERS 1,000 ML IV ONE (13:41)
--- NOTE | 2018-11-02 13:47 | FL ---
EXAMINATION TYPE: FL guidance operating room DATE OF EXAM: 11/02/2018 CLINICAL HISTORY: Ureteral stent exchange, fluoroscopic documentation TECHNIQUE: Fluoroscopy. COMPARISON: None. FINDINGS: Fluoroscopic guidance was provided during procedure performed by Dr. Unger. A total of 3 seconds of fluoroscopic time was utilized during the procedure and 1 spot images was acquired demons trating a ureteral stent. IMPRESSION: As Above.
[2018-11-02] MEDS: PANTOPRAZOLE 40 MG TABLET PO SCH (14:57)
[2018-11-02] MEDS: DILTIAZEM CD 120 MG CAP.ER.24H PO SCH (14:57)
[2018-11-02] MEDS: ESCITALOPRAM 20 MG TAB PO SCH (14:57)
[2018-11-02] MEDS: GABAPENTIN 300 MG CAP PO SCH ×3 (14:57→21:42)
[2018-11-02 15:19] VITALS: BMI 22.6
[2018-11-02] MEDS: TAMSULOSIN 0.4 MG CAP.ER.24H PO SCH (21:42)
[2018-11-02] MEDS: ZOLPIDEM 5 MG TAB PO SCH (21:42)
--- NOTE | 2018-11-02 21:56 | P.PN ---
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 Wound cultures growing Klebsiella. Currently being treated with ciprofloxacin. ID is following. Patient denied any complaints of abdominal pain today. No fever no chills. Complaining of some back pain. Otherwise able to ambulate to the bathroom. No complaints of chest pain or shortness of breath. Ultrasound of abdominal moderate sized hydronephrosis right-sided with the ureteral stent. The right ureteral jet is not visualized. Urology was consulted. 10/31/2018 Patient is still complaining of abdominal pain mainly right side and flank pain. Requiring IV pain medications. Patient seen by urology and is planning for stent exchange. Otherwise patient is being continued on antibiotics in the form of ceftriaxone. ID is on board. No fever no chills. No complaints of chest pain or shortness of breath. No na usea vomiting or abdominal pain. Patient does have some diarrhea and C. diff toxin will be sent.. 11/01/2018 Patient is still complaining of abdominal pain today. Requiring IV pain medications and no complaints of fever otherwise. No chest pain or shortness of breath. C. diff toxin could not be sent due to patient does not have any further episodes of diarrhea. Patient is being continued on antibiotics the form of ceftriaxone as per ID. Urology is planning for stent exchange tomorrow. Nothing by mouth from midnight. Patient is a poor historian otherwise. 11/02/2018 Patient is still complaining of abdominal pain. No fever no chills. No nausea no vomiting. Patient is scheduled for right ureteral stent exchange by urology. Patient is being continued on antibiotics in the form of ceftriaxone. Urine culture was growing Klebsiella. ID is on board. Current medications reviewed. Objective - Vital Signs Vital signs: Vital Signs Temp 97.6 F 11/02/18 15:25 Pulse 72 11/02/18 15:25 Resp 17 11/02/18 15:25 BP 164/85 11/02/18 15:25 Pulse Ox 96 11/02/18 15:25 Intake & Output 11/01/18 11/02/18 11/02/18 18:59 06:59 18:59 Intake Total 480 1040 500 Output Total 0 Balance 480 1040 500 Weight 63.503 kg Intake: IV 500 Intake, IV Titration 800 Amount Sodium Chloride 0.9% 1, 400 000 ml @ 100 mls/hr IV . Q10H [facility] Rx#:[id number] cefTRIAXone 1 gm In 400 Sodium Chloride 0.9% 50 ml @ 100 mls/hr IVPB Q24H [facility] Rx#:[id number] Oral 480 240 Output: Estimated Blood Loss 0 Other: Voiding Method Toilet Toilet Toilet # Voids 2 1 2 - Exam PHYSICAL EXAMINATION: Patient is lying in the bed comfortably, no acute distress, awake alert and oriented.. HEENT: Normocephalic. Neck is supple. Pupils reactive. Nostrils clear. Oral cavity is moist. Ears reveal no drainage. Neck reveals no JVD, carotid bruits, or thyromegaly. CHEST EXAMINATION: Trachea is central. Symmetrical expansion. Lung zavaleta clear to auscultation and percussion. CARDIAC: Normal S1, S2 with no gallops. No murmurs ABDOMEN: Soft. Bowel sounds normal. No organomegaly. No abdominal bruits. Right flank tenderness. Extremities: reveal no edema. No clubbing or cyanosis Neurologically awake, alert, oriented x3 with well-coordinated movements. No focal deficits noted Skin: No rash or skin lesions. Psychiatric: Coperative. Nonsuicidal Musculoskeletal: No joint swelling or deformity. Normal range of motion. - Labs CBC & Chem 7: 11/02/18 07:35 11/02/18 07:35 Labs: Abnormal Lab Results - Last 24 Hours (Table) 11/02/18 11/02/18 Range/Units 07:35 07:35 RBC 2.50 L (3.80-5.40) m/uL Hgb 8.2 L (11.4-16.0) gm/dL Hct 24.2 L (34.0-46.0) % Lymphocytes # 0.9 L (1.0-4.8) k/uL Potassium 3.4 L (3.5-5.1) mmol/L BUN 4 L (7-17) mg/dL Microbiology - Last 24 Hours (Table) 10/28/18 04:00 Blood Culture - Preliminary Blood No Growth after 120 hours 10/28/18 00:02 Blood Culture - Preliminary Blood No Growth after 120 hours Assessment and Plan Assessment: Acute recurrent urinary tract infection Klebsiella pneumoniae UTI Right sided/flank abdominal pain. Scheduled for ureteral stent exchange. Obstructive uropathy related to tumor mass on the right ureter with history of stent placement. Ovarian cancer. Currently undergoing chemotherapy Anemia secondary to chemotherapy slight hypokalemia replaced. DVT prophylaxis Plan: Patient will be continued on IV hydration. Continue with antibiotics in the form of ceftriaxone. Urine culture showed Klebsiella. ID is on board. Due to hydronephrosis and recurrent UTI, urology is following. Scheduled for stent exchange. Further recommendations based on the clinical course. Otherwise continue the current management. Prognosis is guarded. Time with Patient: Greater than 30
[2018-11-03] MEDS: ACETAMINOPHEN TAB 325 MG TAB PO PRN (00:08)
[2018-11-03] MEDS: HYDROmorphone 1 MG/ML 1 ML SYRINGE IVP PRN ×4 (07:34→20:31)
[2018-11-03] MEDS: PANTOPRAZOLE 40 MG TABLET PO SCH (08:37)
[2018-11-03] MEDS: ESCITALOPRAM 20 MG TAB PO SCH (08:37)
[2018-11-03] MEDS: DILTIAZEM CD 120 MG CAP.ER.24H PO SCH (08:37)
[2018-11-03] MEDS: GABAPENTIN 300 MG CAP PO SCH ×3 (08:37→21:51)
[2018-11-03] MEDS: SODIUM CHLORIDE 0.9% 1,000 ML IV SCH ×2 (08:38→16:47)
[2018-11-03] MEDS: HYDROcodone/APAP 5-325MG 1 EACH TAB PO PRN ×2 (09:25→21:52)
--- NOTE | 2018-11-03 11:16 | P.PN ---
Progress Note - Text Progress Note Date: 11/03/18 Mrs. Galloway underwent right ureteral stent change yesterday. She feels achy all over, and reports back pain, which she attributes at least in part to being in bed. She denies flank pain and voiding symptoms. She is afebrile. From my standpoint, she is urologically stable for discharge. She should be discharged home on oral antibiotics, and her Klebsiella UTI is sensitive to all antibiotics tested other than ampicillin. She will keep her previously scheduled appointment with me. Please notify me if I can be of any further assistance.
[2018-11-03] MEDS: ONDANSETRON 4 MG TAB PO PRN (17:42)
[2018-11-03] MEDS: TAMSULOSIN 0.4 MG CAP.ER.24H PO SCH (21:51)
[2018-11-03] MEDS: ZOLPIDEM 5 MG TAB PO SCH (21:51)
--- NOTE | 2018-11-03 23:37 | P.PN ---
Subjective Progress Note Date: 11/03/18 Principal diagnosis: Klebsiella urinary tract infection Sepsis Ms. 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 Urine cultures growing Klebsiella. Currently being treated with ciprofloxacin. ID is following. Ultrasound of abdominal moderate sized hydronephrosis right-sided with the ureteral stent. The right ureteral jet is not visualized. On 11/03/17 - She had the ureteral stent placed by Urology yesterday. Patient denied any complaints of abdominal pain today. No fever no chills. Complaining of some back pain. Otherwise able to ambulate to the bathroom. No complaints of chest pain or shortness of breath. She c/o low back pain. She has been getting pain meds. Medications and labs revie Active Medications Acetaminophen (Tylenol Tab) 650 mg PO Q6HR PRN PRN Reason: Fever and/ or Pain Last Admin: 11/03/18 00:08 Dose: 650 mg Documented by: Hydrocodone Bitart/Acetaminophen ([place] 5-325) 1 each PO QID PRN PRN Reason: Pain Last Admin: 11/03/18 21:52 Dose: 1 each Documented by: Alprazolam (Xanax) 0.25 mg PO HS PRN PRN Reason: Anxiety Diltiazem HCl (Cardizem Cd) 120 mg PO DAILY [facility] Last Admin: 11/03/18 08:37 Dose: 120 mg Documented by: Escitalopram Oxalate (Lexapro) 20 mg PO DAILY [facility] Last Admin: 11/03/18 08:37 Dose: 20 mg Documented by: Gabapentin (Neurontin) 300 mg PO TID [facility] Last Admin: 11/03/18 21:51 Dose: 300 mg Documented by: Hydromorphone HCl (Dilaudid) 1 mg IVP Q4HR PRN PRN Reason: Pain Last Admin: 11/03/18 20:31 Dose: 1 mg Documented by: Sodium Chloride (Saline 0.9%) 1,000 mls @ 100 mls/hr IV .Q10H [facility] Last Admin: 11/03/18 16:47 Dose: 100 mls/hr Documented by: Ceftriaxone Sodium 1 gm/ (Sodium Chloride) 50 mls @ 100 mls/hr IVPB Q24H [facility] Last Admin: 11/02/18 22:52 Dose: 100 mls/hr Documented by: Ondansetron HCl (Zofran) 8 mg PO Q8H PRN PRN Reason: Nausea Last Admin: 11/03/18 17:42 Dose: 8 mg Documented by: Pantoprazole Sodium (Protonix) 40 mg PO AC-BRKFST [facility] Last Admin: 11/03/18 08:37 Dose: 40 mg Documented by: Tamsulosin HCl (Flomax) 0.4 mg PO [facility] Last Admin: 11/03/18 21:51 Dose: 0.4 mg Documented by: Zolpidem Tartrate (Ambien) 5 mg PO [facility] Last Admin: 11/03/18 21:51 Dose: 5 mg Documented by: wed. Objective - Vital Signs Vital signs: Vital Signs Temp 98.5 F 11/03/18 11:59 Pulse 66 11/03/18 11:59 Resp 17 11/03/18 11:59 BP 138/79 11/03/18 11:59 Pulse Ox 95 11/03/18 11:59 Intake & Output 11/03/18 11/03/18 11/04/18 06:59 18:59 06:59 Intake Total 1400 Balance 1400 Intake: Intake, IV Titration 800 Amount Sodium Chloride 0.9% 1, 800 000 ml @ 100 mls/hr IV . Q10H [facility] Rx#:[id number] Oral 600 Other: Voiding Method Toilet Toilet # Voids 2 - Exam PHYSICAL EXAMINATION: Patient is lying in the bed comfortably, no acute distress, awake alert and oriented.. HEENT: Normocephalic. Pupils reactive. Neck reveals no JVD, carotid bruits, or thyromegaly. CHEST EXAMINATION: Lung zavaleta clear to auscultation and percussion. CARDIAC: Normal S1, S2 with no gallops. No murmurs ABDOMEN: Soft. Bowel sounds normal. No organomegaly. No abdominal bruits. Extremities: reveal no edema. No clubbing or cyanosis Neurologically: awake, alert, oriented x3 with well-coordinated movements. No focal deficits noted - Labs CBC & Chem 7: 11/02/18 07:35 11/02/18 07:35 Labs: Microbiology - Last 24 Hours (Table) 10/28/18 04:00 Blood Culture - Final Blood No Growth after 144 hours 10/28/18 00:02 Blood Culture - Final Blood No Growth after 144 hours Assessment and Plan Assessment: Acute recurrent urinary tract infection Klebsiella pneumoniae UTI Right sided/flank abdominal pain. Scheduled for ureteral stent exchange. Obstructive uropathy related to tumor mass on the right ureter with history of stent placement. Ovarian cancer. Currently undergoing chemotherapy Anemia secondary to chemotherapy slight hypokalemia replaced. DVT prophylaxis Plan: Urology exchanged the right ueteral stent yesterday. She still c/o mild low back pain. C/w Ceftriaxone for UTI. Possible discharge tomorrow AM.
[2018-11-04] MEDS: HYDROmorphone 1 MG/ML 1 ML SYRINGE IVP PRN ×4 (00:16→13:55)
[2018-11-04] MEDS: SODIUM CHLORIDE 0.9% 1,000 ML IV SCH ×2 (05:12→11:37)
[2018-11-04] MEDS: GABAPENTIN 300 MG CAP PO SCH ×2 (09:32→16:17)
[2018-11-04] MEDS: ESCITALOPRAM 20 MG TAB PO SCH (09:32)
[2018-11-04] MEDS: DILTIAZEM CD 120 MG CAP.ER.24H PO SCH (09:32)
[2018-11-04] MEDS: PANTOPRAZOLE 40 MG TABLET PO SCH (09:32)
[2018-11-04] MEDS: HYDROcodone/APAP 5-325MG 1 EACH TAB PO PRN (11:35)
[2018-11-04 12:05] VITALS: BP 136/76; PULSE 80; RESP 17; TEMP 96.9
--- NOTE | 2018-11-04 14:47 | P.PN ---
Progress Note - Text Progress Note Date: 11/04/18 Mrs. Galloway developed bilateral back pain yesterday evening, which has essentially resolved. Her pain was above the kidneys, over the lower ribs. She denies flank pain and voiding symptoms. She is afebrile and is being discharged home on oral antibiotics. She will keep her previously scheduled appointment with me. Please notify me if I can be of any further assistance.
--- NOTE | 2018-11-04 15:06 | P.DS ---
Providers Date of admission: 10/28/18 01:44 Expected date of discharge: 11/04/18 Attending physician: Kevin Metzger Consults: 10/28/18 09:44 Consult Physician Routine Consulting Provider: Kyle Concepcion Consult Reason/Comments: UTI Do you want consulting provider notified?: Yes 10/30/18 23:16 Consult Physician Routine Consulting Provider: Jorge Bradshaw Reason/Comments: Hydronephrosis Do you want consulting provider notified?: Yes, Notify in am Primary care physician: Kevin Metzger [facility] Course: Ms. Galloway is a 62-year-old female with a known history of ovarian cancer and obstructive uropathy related to tumor mass in the right ureter and history of ureteral stent placement, currently being treated with chemotherapy as an outpatient admitted to the hospital with UTI. Patient's urine culture was growing Klebsiella. Blood cultures have been negative. During the hospital stay the patient was treated with ceftriaxone. ID was following the patient. Urology has also been consulted. The right ureters stent was exchanged on 11/02/2018. Patient was complaining of some upper back pain and she was getting Dilaudid during the hospital stay. She responded well to this medications. Today the patient denies having any problems with urination. No complaints of low back pain. No fever or chills or rigors. Urology and advised outpatient follow-up. 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 HEENT: Normocephalic. Pupils reactive. Neck reveals no JVD, carotid bruits, or thyromegaly. CHEST EXAMINATION: Lung zavaleta clear to auscultation and percussion. CARDIAC: Normal S1, S2 with no gallops. No murmurs ABDOMEN: No suprapubic tenderness. No CVA tenderness. Extremities: reveal no edema. No clubbing or cyanosis Neurologically: awake, alert, oriented x3 with well-coordinated movements. No focal deficits noted DISCHARGE DIAGNOSIS Recurrent urinary tract infection Urine culture positive for Klebsiella Status post ureteral stent exchange on the right side Obstructive uropathy related to tumor muscles on the right ureters Ovarian cancer Anemia secondary to chemotherapy PLAN: Patient is being discharged home to complete her 6 more days course of levofloxacin. Patient was advised to stop taking escitalopram and Zofran until she completed her antibiotic course as there is risk of QT prolongation. Medication reconciliation was done, it was explained in detail to her. The rest of her home medications remain the same. She is advised to follow up with urology as outpatient and also her primary care doctor Dr. De La Torre in 2-3 days. Patient is being discharged home in a fair condition. Patient Condition at Discharge: Fair Plan - Discharge Summary Discharge Rx Participant: No New Discharge Prescriptions: New Levofloxacin [Levaquin] 750 mg PO DAILY #6 tab Discontinued Escitalopram [Lexapro] 20 mg PO DAILY Ondansetron HCl [Zofran] 8 mg PO Q8H PRN PRN Reason: Nausea No Action Diltiazem HCl [Diltiazem 24Hr ER] 120 mg PO DAILY ALPRAZolam [Xanax] 0.25 mg PO HS PRN PRN Reason: Anxiety Gabapentin [Neurontin] 300 mg PO TID Esomeprazole Magnesium [NexIUM] 20 mg PO DAILY Tamsulosin [Flomax] 0.4 mg PO HS Zolpidem [Ambien] 5 mg PO HS Hydrocodone/Acetaminophen [[place] 5-325] 1 tab PO QID PRN PRN Reason: Pain Discharge Medication List ALPRAZolam [Xanax] 0.25 mg PO HS PRN 08/25/14 [History] Diltiazem HCl [Diltiazem 24Hr ER] 120 mg PO DAILY 08/25/14 [History] Gabapentin [Neurontin] 300 mg PO TID 10/17/17 [History] Esomeprazole Magnesium [NexIUM] 20 mg PO DAILY 07/12/18 [History] Tamsulosin [Flomax] 0.4 mg PO HS 09/14/18 [History] Zolpidem [Ambien] 5 mg PO HS 09/14/18 [History] Hydrocodone/Acetaminophen [[place] 5-325] 1 tab PO QID PRN 10/04/18 [History] Levofloxacin [Levaquin] 750 mg PO DAILY #6 tab 11/04/18 [Rx] Follow up Appointment(s)/Referral(s): Kevin Metzger MD [Primary Care Provider] - 1-2 days [facility], [NON-STAFF] - 1-2 Days
== END 2018-11-04 16:35 | disposition home health service (06) | DRG 854 ==
LOC: EC 22:28 → 3NMEDONC 10-28 01:44 → 3SCARD 10-31 22:37 → 3NMEDONC 10-31 22:37
PROVIDERS: ADMIT Family Medicine; ATTEND Family Medicine
PROC: 0TP98DZ Removal of Intraluminal Device from Ureter, Via Natural or Artificial Opening Endoscopic (ICD-10-PCS; 2018-11-02)
PROC: 0T768DZ Dilation of Right Ureter with Intraluminal Device, Via Natural or Artificial Opening Endoscopic (ICD-10-PCS; principal; 2018-11-02 12:00)
DX: A41.50 Gram-negative sepsis, unspecified (principal); C56.9 Malignant neoplasm of unspecified ovary; C79.89 Secondary malignant neoplasm of other specified sites; D61.818 Other pancytopenia; N13.6 Pyonephrosis; D64.81 Anemia due to antineoplastic chemotherapy; E86.0 Dehydration; F41.9 Anxiety disorder, unspecified; T45.1X5A Adverse effect of antineoplastic and immunosuppressive drugs, initial encounter; F32.9 Major depressive disorder, single episode, unspecified; K58.0 Irritable bowel syndrome with diarrhea; I25.10 Atherosclerotic heart disease of native coronary artery without angina pectoris; Z87.440 Personal history of urinary (tract) infections; Z86.718 Personal history of other venous thrombosis and embolism; Z90.710 Acquired absence of both cervix and uterus; Z90.722 Acquired absence of ovaries, bilateral; Z88.5 Allergy status to narcotic agent; Z88.0 Allergy status to penicillin; Z88.8 Allergy status to other drugs, medicaments and biological substances; Z91.041 Radiographic dye allergy status; Z79.899 Other long term (current) drug therapy; Z95.5 Presence of coronary angioplasty implant and graft; Z80.1 Family history of malignant neoplasm of trachea, bronchus and lung; Z82.0 Family history of epilepsy and other diseases of the nervous system; Z83.3 Family history of diabetes mellitus; Z82.3 Family history of stroke
CPT/HCPCS: 36415; 71046; 76700; 76857; 80048; 80053; 81001; 82550; 83605; 83735; 84100; 84484; 85025; 85610; 85730; 87040; 87077; 87086; 87186; 87324; 93005; 96365; 96366; 96375; 96376; 99285

== ENCOUNTER 2018-11-19 22:44 | Inpatient (IN) | payer MEDICARE ==
[2018-11-19 23:54] LABS: Appearance,Urine Cloudy (Clear); Bilirubin,Urine Negative (Negative); Blood,Urine Moderate (Negative); Color,Urine Yellow; Glucose,Urine (UA) Negative (Negative); Ketones,Urine Negative (Negative); Leukocyte Esterase,Urine Small (Negative); Mucus,Urine Rare /hpf; Nitrite,Urine Negative (Negative); PH, Urine 5.5 (5.0-8.0); Protein,Urine 2+ (Negative); RBC,Urine >182 /hpf (0-5); Specific Gravity,Urine 1.024 (1.001-1.035); Squamous Epithelial Cell,Urine 2 /hpf (0-4); Urobilinogen,Urine <2.0 mg/dL (<2.0)
[2018-11-20] MEDS ORDERED: ACETAMINOPHEN TAB 325 MG TAB PO STA (00:40)
[2018-11-20] MEDS ORDERED: HYDROmorphone 1 MG/ML 1 ML SYRINGE IVP STA ×2 (00:50→02:40)
[2018-11-20 01:19] LABS: HCT 26.7 % (34.0-46.0); HGB 9.1 gm/dL (11.4-16.0); Hypochromasia Slight; MCH 31.7 pg (25.0-35.0); MCHC 33.9 g/dL (31.0-37.0); MCV 93.7 fL (80.0-100.0); Platelet Count 154 k/uL (150-450); Poikilocytosis Slight; RBC 2.85 m/uL (3.80-5.40); RDW 15.1 % (11.5-15.5); WBC 4.1 k/uL (3.8-10.6)
[2018-11-20 01:45] LABS: Albumin 3.6 g/dL (3.5-5.0); Calcium 9.1 mg/dL (8.4-10.2); Potassium 4.2 mmol/L (3.5-5.1); Total Bilirubin 0.2 mg/dL (0.2-1.3); Total Protein 6.4 g/dL (6.3-8.2)
[2018-11-20 02:07] LABS: Eosinophils # (M) 0.25 k/uL (0-0.7); Lymphocytes # (M) 1.56 k/uL (1.0-4.8); Myelocytes # (M) 0.04 k/uL (0); Myelocytes % 1 %; Neutrophils # (M) 1.39 k/uL (1.3-7.7); Neutrophils % (M) 34 %; Nucleated Red Blood Cells 0 /100 WBC (0-0); Total Cells Counted 200
[2018-11-20] MEDS ORDERED: NALOXONE 0.4 MG/ML 1 ML VIAL IV PRN (03:47)
[2018-11-20] MEDS ORDERED: IBUPROFEN 400 MG TAB PO PRN (03:47)
[2018-11-20] MEDS ORDERED: ACETAMINOPHEN TAB 325 MG TAB PO PRN (03:47)
--- NOTE | 2018-11-20 03:47 | ED ---
General Adult HPI - General Chief complaint: Urogenital Stated complaint: poss UTI Time Seen by Provider: 11/20/18 00:34 Source: patient, RN notes reviewed, old records reviewed Mode of arrival: ambulatory Limitations: no limitations - History of Present Illness Initial comments: 63-year-old female patient presents with history of recurrent ovarian cancer, currently on chemotherapy presents to ED for symptoms of urinary tract infection. Patient reports that she has had urinary tract infection the past have required hospitalization. Patient reports that she has 2 days of dysuria, and burning with urination. Patient also has some mild pain radiates into her low back. Patient states this feels similar to urinary tract infection in the past. Patient denies any other complaints at this time. Denies any chest pain shortness breath abdominal pain nausea vomiting or diarrhea. Systemic: Pt denies fatigue, fever/chills, rash. Pt denies weakness, night sweats, weight loss. Neuro: Pt denies headache, visual disturbances, syncope or pre-syncope. HEENT: Pt denies ocular discharge or irritation, otalgia, rhinorrhea, pharyngitis or notable lymphadenopathy. Cardiopulmonary: Pt denies chest pain, SOB, heart palpitations, dyspnea on exertion. Abdominal/GI: Pt denies abdominal pain, n/v/d. : Pt denies frequency/urgency. Denies new onset urinary or bowel incontinence. MSK: Pt denies myalgia, loss of strength or function in extremities. Neuro: Pt denies new onset weakness, paresthesias. - Related Data Home Medications Medication Instructions Recorded Confirmed Diltiazem HCl [Diltiazem 24Hr ER] 120 mg PO DAILY 08/25/14 11/19/18 Gabapentin [Neurontin] 300 mg PO TID 10/17/17 11/19/18 Esomeprazole Magnesium [NexIUM] 20 mg PO DAILY 07/12/18 11/19/18 Tamsulosin [Flomax] 0.4 mg PO HS 09/14/18 11/19/18 Zolpidem [Ambien] 5 mg PO HS 09/14/18 11/19/18 Hydrocodone/Acetaminophen [[place] 1 tab PO QID PRN 10/04/18 11/19/18 5-325] Mirabegron [Myrbetriq] 50 mg PO DAILY 11/19/18 11/19/18 Allergies Allergy/AdvReac Type Severity Reaction Status Date / Time adhesive Allergy Rash/Hives Verified 11/19/18 14:54 carboplatin Allergy Anaphylaxis Verified 11/19/18 14:54 iodine Allergy Rash/Hives Verified 11/19/18 14:54 Penicillins Allergy Rash/Hives Verified 11/19/18 14:54 codeine AdvReac Nausea & Verified 11/19/18 14:54 Vomiting morphine AdvReac Nausea & Verified 11/19/18 14:54 Vomiting Review of Systems ROS Statement: Those systems with pertinent positive or pertinent negative responses have been documented in the HPI. ROS Other: All systems not noted in ROS Statement are negative. Past Medical History Past Medical History: Cancer, Deep Vein Thrombosis (DVT), GERD/Reflux, Hypertension, Sleep Apnea/CPAP/BIPAP Additional Past Medical History / Comment(s): 2006 Ovarian cancer with surgery/chemo, cancer 08/2017 with abdominal mets and receiving chemo, recurrent admissions for UTI/SBO/Ureteral Obstruction in 2017, R leg DVT 2014, bilateral TMJ with surgery/pins.IBS, recently hospitalized for 1 week in October 2018 for a UTI. States she thinks her UTI is coming back as of today. (11-19-18) History of Any Multi-Drug Resistant Organisms: VRE Date of last positivie culture/infection: 01/26/18 MDRO Source:: urine Past Surgical History: Heart Catheterization With Stent, Hysterectomy Additional Past Surgical History / Comment(s): ovarian cancer with bilateral oopherectomy/hysterectomy 2005; 2 open exploratory abdominal surgery, R chest mediport placed 2011, bilateral retrograde pyelogram cystoscopy with R ureter stent, jaws have pins d/t surgery for TMJ, colonoscopy, Past Anesthesia/Blood Transfusion Reactions: No Reported Reaction Additional Past Anesthesia/Blood Transfusion Reaction / Comment(s): Pt has received blood in past without reaction. Date of Last Stent Placement:: 2011 Past Psychological History: Anxiety, Depression Smoking Status: Never smoker - Past Family History Mother Family Medical History: Diabetes Mellitus Brother(s) Family Medical History: Cancer Additional Family Medical History / Comment(s): lung cancer- since passed Sister(s) Family Medical History: CVA/TIA Father Family Medical History: Dementia, Neurologic Disorder Additional Family Medical History / Comment(s): Alzheimer's General Exam - General Exam Comments Initial Comments: Constitutional: NAD, AOX3, Pt has pleasant affect. HEENT: NC/AT, trachea midline, neck supple, no lymphadenopathy. Posterior pharynx non erythematous, without exudates. External ears appear normal, without discharge. Mucous membranes moist. Eyes PERRLA, EOM intact. There is no scleral icterus. No pallor noted. Cardiopulmonary: RRR, no murmurs, rubs or gallops, no JVD noted. Lungs CTAB in anterior and posterior zavaleta. No peripheral edema. Abdominal exam: Abdomen soft and non-distended. Abdomen non-tender to palpation in all 4 quadrants. Bowel sounds active in LLQ. No hepatosplenomegaly. No ecchymosis Neuro: CN II-XII grossly intact. No nuchal rigidity. No raccon eyes, no contreras sign, no hemotympanum. No cervical spinal tenderness. MSK: No midline cervical thoracic lumbar pain tenderness. No posterior calf tenderness bilaterally, homans sign negative bilaterally. Posterior tibialis and radial pulse +2 bilaterally. Sensation intact in upper and lower extremities. Full active ROM in upper and lower extremities, 5/5 stregnth. Limitations: no limitations Course Vital Signs 11/19/18 11/20/18 11/20/18 22:54 00:48 01:51 Temperature 98.6 F 98.8 F 98.3 F Pulse Rate 76 72 72 Respiratory 18 18 17 Rate Blood Pressure 140/85 145/76 130/71 O2 Sat by Pulse 99 99 97 Oximetry 11/20/18 11/20/18 02:50 03:38 Temperature 98.5 F Pulse Rate 74 73 Respiratory 18 18 Rate Blood Pressure 110/55 110/52 O2 Sat by Pulse 95 96 Oximetry Medical Decision Making - Medical Decision Making 63-year-old female patient presents with history of recurrent ovarian cancer, currently on chemotherapy presents to ED for symptoms of urinary tract infection. Patient reports that she has had urinary tract infection the past have required hospitalization. Patient reports that she has 2 days of dysuria, and burning with urination. Patient also has some mild pain radiates into her low back. Patient states this feels similar to urinary tract infection in the past. Patient denies any other complaints at this time. Denies any chest pain shortness breath abdominal pain nausea vomiting or diarrhea. Patient vital signs stable, afebrile. Physical exam did not display acute pathology. Laboratory investigations revealed nonspecific CBC, CMP. No significant change. UA displayed currently 2 red blood cells, 39 white blood cells, small leukocyte esterase, 2+ protein. Patient initiated on ceftriaxone. States that she has been able to take keflex without difficulty. Pt was offered imaging on back, states that she is getting a CT on and would prefer to forgo imaging at this time. Pt will be admitted into observation. Case discussed with Dr. Salmeron. - Lab Data Result diagrams: 11/20/18 01:00 11/20/18 01:00 Lab Results 11/19/18 11/20/18 11/20/18 Range/Units 23:40 01:00 01:00 WBC 4.1 (3.8-10.6) k/uL RBC 2.85 L (3.80-5.40) m/uL Hgb 9.1 L (11.4-16.0) gm/dL Hct 26.7 L (34.0-46.0) % MCV 93.7 (80.0-100.0) fL MCH 31.7 (25.0-35.0) pg MCHC 33.9 (31.0-37.0) g/dL RDW 15.1 (11.5-15.5) % Plt Count 154 (150-450) k/uL Neutrophils % (Manual) 34 % Lymphocytes % (Manual) 38 % Monocytes % (Manual) 22 % Eosinophils % (Manual) 6 % Myelocytes % 1 % Neutrophils # (Manual) 1.39 (1.3-7.7) k/uL Lymphocytes # (Manual) 1.56 (1.0-4.8) k/uL Monocytes # (Manual) 0.90 (0-1.0) k/uL Eosinophils # (Manual) 0.25 (0-0.7) k/uL Myelocytes # (Manual) 0.04 H (0) k/uL Nucleated RBCs 0 (0-0) /100 WBC Manual Slide Review Performed Hypochromasia Slight Poikilocytosis Slight Sodium 140 (137-145) mmol/L Potassium 4.2 (3.5-5.1) mmol/L Chloride 105 (98-107) mmol/L Carbon Dioxide 26 (22-30) mmol/L Anion Gap 9 mmol/L BUN 18 H (7-17) mg/dL Creatinine 0.91 (0.52-1.04) mg/dL Est GFR (CKD-EPI)AfAm 77 (>60 ml/min/1.73 sqM) Est GFR (CKD-EPI)NonAf 66 (>60 ml/min/1.73 sqM) Glucose 101 H (74-99) mg/dL Plasma Lactic Acid Chad (0.7-2.0) mmol/L Calcium 9.1 (8.4-10.2) mg/dL Total Bilirubin 0.2 (0.2-1.3) mg/dL AST 31 (14-36) U/L ALT 23 (9-52) U/L Alkaline Phosphatase 68 (38-126) U/L Total Protein 6.4 (6.3-8.2) g/dL Albumin 3.6 (3.5-5.0) g/dL Urine Color Yellow Urine Appearance Cloudy H (Clear) Urine pH 5.5 (5.0-8.0) Ur Specific [place] 1.024 (1.001-1.035) Urine Protein 2+ H (Negative) Urine Glucose (UA) Negative (Negative) Urine Ketones Negative (Negative) Urine Blood Moderate H (Negative) Urine Nitrite Negative (Negative) Urine Bilirubin Negative (Negative) Urine Urobilinogen <2.0 (<2.0) mg/dL Ur Leukocyte Esterase Small H (Negative) Urine RBC >182 H (0-5) /hpf Urine WBC 39 H (0-5) /hpf Ur Squamous Epith Cells 2 (0-4) /hpf Urine Mucus Rare H (None) /hpf 11/20/18 Range/Units 01:00 WBC (3.8-10.6) k/uL RBC (3.80-5.40) m/uL Hgb (11.4-16.0) gm/dL Hct (34.0-46.0) % MCV (80.0-100.0) fL MCH (25.0-35.0) pg MCHC (31.0-37.0) g/dL RDW (11.5-15.5) % Plt Count (150-450) k/uL Neutrophils % (Manual) % Lymphocytes % (Manual) % Monocytes % (Manual) % Eosinophils % (Manual) % Myelocytes % % Neutrophils # (Manual) (1.3-7.7) k/uL Lymphocytes # (Manual) (1.0-4.8) k/uL Monocytes # (Manual) (0-1.0) k/uL Eosinophils # (Manual) (0-0.7) k/uL Myelocytes # (Manual) (0) k/uL Nucleated RBCs (0-0) /100 WBC Manual Slide Review Hypochromasia Poikilocytosis Sodium (137-145) mmol/L Potassium (3.5-5.1) mmol/L Chloride (98-107) mmol/L Carbon Dioxide (22-30) mmol/L Anion Gap mmol/L BUN (7-17) mg/dL Creatinine (0.52-1.04) mg/dL Est GFR (CKD-EPI)AfAm (>60 ml/min/1.73 sqM) Est GFR (CKD-EPI)NonAf (>60 ml/min/1.73 sqM) Glucose (74-99) mg/dL Plasma Lactic Acid Chad 0.9 (0.7-2.0) mmol/L Calcium (8.4-10.2) mg/dL Total Bilirubin (0.2-1.3) mg/dL AST (14-36) U/L ALT (9-52) U/L Alkaline Phosphatase (38-126) U/L Total Protein (6.3-8.2) g/dL Albumin (3.5-5.0) g/dL Urine Color Urine Appearance (Clear) Urine pH (5.0-8.0) Ur Specific [place] (1.001-1.035) Urine Protein (Negative) Urine Glucose (UA) (Negative) Urine Ketones (Negative) Urine Blood (Negative) Urine Nitrite (Negative) Urine Bilirubin (Negative) Urine Urobilinogen (<2.0) mg/dL Ur Leukocyte Esterase (Negative) Urine RBC (0-5) /hpf Urine WBC (0-5) /hpf Ur Squamous Epith Cells (0-4) /hpf Urine Mucus (None) /hpf Disposition Clinical Impression: UTI (urinary tract infection) Disposition: ADMITTED IP TO THIS [facility] Condition: Fair Is patient prescribed a controlled substance at d/c from ED?: No Referrals: Kevin Metzger MD [Primary Care Provider] - 1-2 days
[2018-11-20] MEDS ORDERED: cefTRIAXone 1,000 MG VIAL (IM USE) IM SCH (04:00)
[2018-11-20] MEDS ORDERED: cefTRIAXone IN SWFI 1,000 MG/10 ML SYRINGE IVP SCH (05:00)
[2018-11-20] MEDS: ONDANSETRON 4 MG/2 ML VIAL IVP PRN ×3 (05:01→23:13)
[2018-11-20] MEDS: SODIUM CHLORIDE 0.9% 1,000 ML IV SCH ×2 (05:03→23:13)
[2018-11-20] MEDS: HYDROmorphone 1 MG/ML 1 ML SYRINGE IVP PRN ×3 (07:32→20:19)
[2018-11-20] MEDS: NON-FORMULARY DRUG (Mirabegron [Myrbetriq] 50 MG) PO SCH (12:10)
[2018-11-20] MEDS: GABAPENTIN 300 MG CAP PO SCH ×3 (12:14→20:19)
[2018-11-20] MEDS: DILTIAZEM CD 120 MG CAP.ER.24H PO SCH (12:14)
[2018-11-20] MEDS: HYDROcodone/APAP 5-325MG 1 EACH TAB PO PRN ×2 (17:15→23:52)
--- NOTE | 2018-11-20 20:13 | HP ---
HISTORY AND PHYSICAL CHIEF COMPLAINT: Abdominal and right flank pain. HISTORY OF PRESENT ILLNESS: This is another recent admission for this lady who has metastatic ovarian carcinoma of the pelvis which was created a ureteral obstruction on the right, for which she has had a ureteral stent for some time. She has been having trouble with frequent and recurring urinary tract infections. For this, the right stent was recently removed and she was doing well off of antibiotics until she suddenly developed chills, fever, right flank and lower abdominal pain and came to the emergency room. REVIEW OF SYSTEMS: She has had no confusion, delirium, difficulty with vision or hearing, chest pain, cough, hemoptysis, heart disease. She does have hypertension. She has had some nausea but no vomiting. She has had no diarrhea, melena, hematochezia, etc. She does not experience dysuria or frequency. She is not diabetic. Past medical history, family history, and personal and social histories are unchanged from her recent admitting and discharge summaries. ALLERGIES: She is ALLERGIC to NUMEROUS MEDICATIONS, which are on her list and include: 1. CODEINE. 2. IODINE. 3. PENICILLIN. 4. CLINDAMYCIN. 5. CARBOPLATIN. CURRENT MEDICATIONS: Current medications include: 1. Ambien. 2. Lexapro. 3. Folic acid. 4. Xanax. 5. Vicodin. 6. Nexium. 7. Gabapentin. 8. Diltiazem. She does have a history in the past of coronary artery disease, hyperlipidemia. She has never smoked. PHYSICAL EXAMINATION: Blood pressure 138/80 with a pulse of 80, respirations 16 and temperature 99. In general she appeared to be pale and uncomfortable. Skin was dry and lymph nodes were not enlarged. Head, ears, eyes, nose, mouth and throat were normal. Mucous membranes are somewhat dry. Neck veins are not distended. Chest is clear. Cardiac exam demonstrated sinus rhythm and no murmurs or extra sounds. Abdomen was soft. There is a fullness in the lower abdomen with very little tenderness. She is tender in the right flank. Extremities are normal. Neurologically she is intact. She is admitted to the hospital with the diagnoses: 1. Recurrent and chronic urinary tract infection. 2. Right ureteral obstruction with stent (foreign body). 3. Metastatic ovarian carcinoma. 4. Hypertension. PLAN: 1. Bed rest. 2. IV fluids. 3. Consult Infectious Disease and Urology. MMODL / IJN: [id number] /
[2018-11-20] MEDS: TAMSULOSIN 0.4 MG CAP.ER.24H PO SCH (20:19)
--- NOTE | 2018-11-20 23:11 | P.CONS ---
History of Present Illness - Reason for Consult Consult date: 11/20/18 - Chief Complaint fever - History of Present Illness his is a 62-year-old female patient who has a past history significant for ovarian cancer has been on maintenance chemotherapy and under the treatment of Dr. Sean Trinidda, [place]. Patient states that she was recently taken off chemotherapy 3 weeks ago as her protein levels are too high in her urine. This is to be reevaluated and possibly start a new maintenance chemotherapy. Patient states that she did have him abdominal pain and constipation with cramping pain about 2 weeks ago and went to [facility] and underwent a CAT scan and she was sent home. At that time she did not have the vomiting nor fever. Patient last presentation with sudden onset of nausea and vomiting along with abdominal pain and cramping and constipation. She did have a bowel movement that waxed and waned between normal and diarrhea. Diarrhea is now resolved. She does complain of pressure and burning when she initiates urination. She has history of frequent urinary tract infections. She presented with nausea vomiting and fevers. Recent CAT scan of the abdomen and pelvis revealed a soft tissue mass in the right hemipelvis of a recurrent or residual neoplasm. Bilateral [place] right greater than left possible early small bowel obstruction secondary to mass. Mild hepatic steatosis. During her recent stay she was evaluated by urology and their recommendations exchange of the urostomy tube into the right kidney where there is a significant ongoing obstruction. It was not evident that the urostomy tube was blocked after it was removed. The patient relates since that change and she completed her antibiotic therapy within days again started developing significant symptoms of dysuria urinary frequency flank pain that radiates from the right and left flank. With fever that she was feeling so poorly she can presented to the emergency center has now been admitted for further antibiotic therapy and plan. Review of Systems Constitutional: Reports chills, Reports fatigue, Reports fever, Reports poor appetite Eyes: denies blurred vision, denies pain Ears, nose, mouth and throat: Denies dental pain, Denies headache, Denies mouth pain, Denies sore throat, Denies vertigo Cardiovascular: Denies chest pain, Denies dyspnea on exertion, Denies leg edema, Denies lightheadedness, Denies shortness of breath, Denies syncope Respiratory: Denies cough, Denies cough with sputum, Denies dyspnea, Denies excessive sputum, Denies hemoptysis, Denies home oxygen, Denies wheezing Gastrointestinal: Reports abdominal pain, Reports diarrhea, Reports nausea, Reports vomiting Genitourinary: Reports dysuria, Denies hematuria Musculoskeletal: Denies myalgias Integumentary: Denies pruritus, Denies rash Neurological: Denies numbness, Denies weakness Psychiatric: Denies anxiety, Denies depression Endocrine: Complains of fatigue and has had some weight loss Past Medical History Past Medical History: Cancer, Deep Vein Thrombosis (DVT), GERD/Reflux, Hyperten ruthie, Sleep Apnea/CPAP/BIPAP Additional Past Medical History / Comment(s): 2006 Ovarian cancer with surgery/chemo, cancer 08/2017 with abdominal mets and currently receiving chemo with last time being 2 weeks ago, anemia 2ndary to chemotherapy, 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 History of Any Multi-Drug Resistant Organisms: VRE Year Discovered:: 01/26/18 MDRO Source:: urine Past Surgical History: Hysterectomy Additional Past Surgical History / Comment(s): ovarian cancer with bilateral oopherectomy/hysterectomy 2005; 2 open exploratory abdominal surgery, R chest mediport placed 2011, bilateral retrograde pyelogram cystoscopy with R ureter stent and recent stent exchange, jaws have pins d/t surgery for TMJ, colonoscopy, Past Anesthesia/Blood Transfusion Reactions: No Reported Reaction Additional Past Anesthesia/Blood Transfusion Reaction / Comm: Pt has received blood in past without reaction. Date of Last Stent Placement:: 2011 Smoking Status: Never smoker - Past Family History Mother Family Medical History: Diabetes Mellitus Brother(s) Family Medical History: Cancer Additional Family Medical History / Comment(s): lung cancer- since passed Sister(s) Family Medical History: CVA/TIA Father Family Medical History: Dementia, Neurologic Disorder Additional Family Medical History / Comment(s): Alzheimer's Medications and Allergies Home Medications and Allergies Comment(s): Current Medications Acetaminophen (Tylenol Tab) 650 mg PO Q6HR PRN PRN Reason: Mild Pain or Fever > 100.5 Hydrocodone Bitart/Acetaminophen ([place] 5-325) 1 each PO QID PRN PRN Reason: Moderate Pain Last Admin: 11/20/18 17:15 Dose: 1 each Documented by: Ceftriaxone Sodium (Rocephin) 1,000 mg IM Q24H [facility] Last Admin: 11/20/18 04:39 Dose: Not Given Documented by: Ceftriaxone Sodium (Rocephin) 1,000 mg IVP DAILY@0500 [facility] Last Admin: 11/20/18 05:04 Dose: 1,000 mg Documented by: Diltiazem HCl (Cardizem Cd) 120 mg PO DAILY [facility] Last Admin: 11/20/18 12:14 Dose: 120 mg Documented by: Gabapentin (Neurontin) 300 mg PO TID [facility] Last Admin: 11/20/18 20:19 Dose: 300 mg Documented by: Hydromorphone HCl (Dilaudid) 1 mg IVP Q6HR PRN PRN Reason: Severe Pain Last Admin: 11/20/18 20:19 Dose: 1 mg Documented by: Sodium Chloride (Saline 0.9%) 1,000 mls @ 100 mls/hr IV .Q10H [facility] Last Admin: 11/20/18 05:03 Dose: 100 mls/hr Documented by: Ibuprofen (Motrin) 400 mg PO Q6HR PRN PRN Reason: Mild Pain or Fever > 100.5 Last Admin: 11/20/18 06:22 Dose: 400 mg Documented by: Naloxone HCl (Narcan) 0.2 mg IV Q2M PRN PRN Reason: Opioid Reversal Non-Formulary Medication (Mirabegron [Myrbetriq]) 50 mg PO DAILY [facility] Last Admin: 11/20/18 12:10 Dose: Not Given Documented by: Ondansetron HCl (Zofran) 4 mg IVP Q8HR PRN PRN Reason: Nausea And Vomiting Last Admin: 11/20/18 13:00 Dose: 4 mg Documented by: Pantoprazole Sodium (Protonix) 40 mg PO [facility] Tamsulosin HCl (Flomax) 0.4 mg PO [facility] Last Admin: 11/20/18 20:19 Dose: 0.4 mg Documented by: Zolpidem Tartrate (Ambien) 5 mg PO [facility] Home Medications Medication Instructions Recorded Confirmed Type Diltiazem HCl [Diltiazem 24Hr ER] 120 mg PO DAILY 08/25/14 11/20/18 History Gabapentin [Neurontin] 300 mg PO TID 10/17/17 11/20/18 History Esomeprazole Magnesium [NexIUM] 20 mg PO DAILY 07/12/18 11/20/18 History Tamsulosin [Flomax] 0.4 mg PO HS 09/14/18 11/20/18 History Zolpidem [Ambien] 5 mg PO HS 09/14/18 11/20/18 History Hydrocodone/Acetaminophen [[place] 1 tab PO QID PRN 10/04/18 11/20/18 History 5-325] Mirabegron [Myrbetriq] 50 mg PO DAILY 11/19/18 11/20/18 History Allergies Allergy/AdvReac Type Severity Reaction Status Date / Time adhesive Allergy Rash/Hives Verified 11/20/18 08:37 carboplatin Allergy Anaphylaxis Verified 11/20/18 08:37 iodine Allergy Rash/Hives Verified 11/20/18 08:37 Penicillins Allergy Rash/Hives Verified 11/20/18 08:37 codeine AdvReac Nausea & Verified 11/20/18 08:37 Vomiting morphine AdvReac Nausea & Verified 11/20/18 08:37 Vomiting Physical Exam Vitals: Vital Signs Temp Pulse Pulse Resp BP BP Pulse Ox 11/20/18 19:22 98.7 F 65 16 149/80 98 11/20/18 16:00 98.6 F 67 16 126/66 99 11/20/18 12:00 61 16 11/20/18 09:33 61 16 11/20/18 09:08 98.3 F 61 16 123/54 97 11/20/18 05:06 98.3 F 68 18 125/69 97 11/20/18 03:38 73 18 110/52 96 11/20/18 02:50 98.5 F 74 18 110/55 95 11/20/18 01:51 98.3 F 72 17 130/71 97 11/20/18 00:48 98.8 F 72 18 145/76 99 11/19/18 22:54 98.6 F 76 18 140/85 99 Intake and Output 11/20/18 11/20/18 11/20/18 06:59 14:59 22:59 Intake Total 500 200 Balance 500 200 Intake: Amount of Fluid Infused ( 400 ml) Oral 100 200 Gen: This is a 62-year-old female patient. She is sleeping awakens easily to verbal stimuli. She appears to be in no acute distress. HEENT: Head is atraumatic, normocephalic. Pupils equal, round. Sclerae is anicteric. Oral mucous members are slightly dry. No thrush noted. Dentition is in good order. NECK: Supple. No JVD. No lymphadenopathy. No thyromegaly. LUNGS: Diminished. No wheezes. No intercostal retractions. HEART: Regular rate and rhythm. No murmur. ABDOMEN: Soft. Bowel sounds are present. No tenderness. No suprapubic tenderness. Mild CVA tenderness bilaterally more on the right. EXTREMITIES: No pedal edema. No calf tenderness. Dorsalis pedis +2 [place]ra[place] aterally. NEUROLOGICAL: Patient is awake, alert and oriented x3 Results CBC & Chem 7: 11/20/18 01:00 11/20/18 01:00 Labs: Abnormal Lab Results - Last 24 Hours (Table) 11/19/18 11/20/18 11/20/18 Range/Units 23:40 01:00 01:00 RBC 2.85 L (3.80-5.40) m/uL Hgb 9.1 L (11.4-16.0) gm/dL Hct 26.7 L (34.0-46.0) % Myelocytes # (Manual) 0.04 H (0) k/uL BUN 18 H (7-17) mg/dL Glucose 101 H (74-99) mg/dL Urine Appearance Cloudy H (Clear) Urine Protein 2+ H (Negative) Urine Blood Moderate H (Negative) Ur Leukocyte Esterase Small H (Negative) Urine RBC >182 H (0-5) /hpf Urine WBC 39 H (0-5) /hpf Urine Mucus Rare H (None) /hpf Microbiology - Last 24 Hours (Table) 11/19/18 23:40 Urine Culture - Preliminary Urine,Clean Catch Laboratory Results WBC 4.1 k/uL (3.8-10.6) 11/20/18 01:00 RBC 2.85 m/uL (3.80-5.40) L 11/20/18 01:00 Hgb 9.1 gm/dL (11.4-16.0) L 11/20/18 01:00 Hct 26.7 % (34.0-46.0) L 11/20/18 01:00 MCV 93.7 fL (80.0-100.0) 11/20/18 01:00 MCH 31.7 pg (25.0-35.0) 11/20/18 01:00 MCHC 33.9 g/dL (31.0-37.0) 11/20/18 01:00 RDW 15.1 % (11.5-15.5) 11/20/18 01:00 Plt Count 154 k/uL (150-450) 11/20/18 01:00 Neutrophils % (Manual) 34 % 11/20/18 01:00 Lymphocytes % (Manual) 38 % 11/20/18 01:00 Monocytes % (Manual) 22 % 11/20/18 01:00 Eosinophils % (Manual) 6 % 11/20/18 01:00 Myelocytes % 1 % 11/20/18 01:00 Neutrophils # (Manual) 1.39 k/uL (1.3-7.7) 11/20/18 01:00 Lymphocytes # (Manual) 1.56 k/uL (1.0-4.8) 11/20/18 01:00 Monocytes # (Manual) 0.90 k/uL (0-1.0) 11/20/18 01:00 Eosinophils # (Manual) 0.25 k/uL (0-0.7) 11/20/18 01:00 Myelocytes # (Manual) 0.04 k/uL (0) H 11/20/18 01:00 Nucleated RBCs 0 /100 WBC (0-0) 11/20/18 01:00 Manual Slide Review Performed 11/20/18 01:00 Hypochromasia Slight 11/20/18 01:00 Poikilocytosis Slight 11/20/18 01:00 Sodium 140 mmol/L (137-145) 11/20/18 01:00 Potassium 4.2 mmol/L (3.5-5.1) 11/20/18 01:00 Chloride 105 mmol/L (98-107) 11/20/18 01:00 Carbon Dioxide 26 mmol/L (22-30) 11/20/18 01:00 Anion Gap 9 mmol/L 11/20/18 01:00 BUN 18 mg/dL (7-17) H 11/20/18 01:00 Creatinine 0.91 mg/dL (0.52-1.04) 11/20/18 01:00 Est GFR (CKD-EPI)AfAm 77 (>60 ml/min/1.73 sqM) 11/20/18 01:00 Est GFR (CKD-EPI)NonAf 66 (>60 ml/min/1.73 sqM) 11/20/18 01:00 Glucose 101 mg/dL (74-99) H 11/20/18 01:00 Plasma Lactic Acid Chad 0.9 mmol/L (0.7-2.0) 11/20/18 01:00 Calcium 9.1 mg/dL (8.4-10.2) 11/20/18 01:00 Total Bilirubin 0.2 mg/dL (0.2-1.3) 11/20/18 01:00 AST 31 U/L (14-36) 11/20/18 01:00 ALT 23 U/L (9-52) 11/20/18 01:00 Alkaline Phosphatase 68 U/L (38-126) 11/20/18 01:00 Total Protein 6.4 g/dL (6.3-8.2) 11/20/18 01:00 Albumin 3.6 g/dL (3.5-5.0) 11/20/18 01:00 Urine Color Yellow 11/19/18 23:40 Urine Appearance Cloudy (Clear) H 11/19/18 23:40 Urine pH 5.5 (5.0-8.0) 11/19/18 23:40 Ur Specific [place] 1.024 (1.001-1.035) 11/19/18 23:40 Urine Protein 2+ (Negative) H 11/19/18 23:40 Urine Glucose (UA) Negative (Negative) 11/19/18 23:40 Urine Ketones Negative (Negative) 11/19/18 23:40 Urine Blood Moderate (Negative) H 11/19/18 23:40 Urine Nitrite Negative (Negative) 11/19/18 23:40 Urine Bilirubin Negative (Negative) 11/19/18 23:40 Urine Urobilinogen <2.0 mg/dL (<2.0) 11/19/18 23:40 Ur Leukocyte Esterase Small (Negative) H 11/19/18 23:40 Urine RBC >182 /hpf (0-5) H 11/19/18 23:40 Urine WBC 39 /hpf (0-5) H 11/19/18 23:40 Ur Squamous Epith Cells 2 /hpf (0-4) 11/19/18 23:40 Urine Mucus Rare /hpf (None) H 11/19/18 23:40 Microbiology 11/19/18 23:40 Urine,Clean Catch Urine Culture - Preliminary Assessment and Plan (1) UTI (urinary tract infection) Narrative/Plan: 63-year-old woman who has a very significant past medical history related to ovarian cancer in difficulties with obstructive uropathy. During her most recent stay she did have exchange of the right urostomy tube was continued have difficulties with the completion of antibiotic therapy in that she had significant recurrence of her symptoms. These included the fever chills dysuria and flank pain. She has not had gato hematuria. Because she felt so poorly she presents to Hospital for further evaluation. Antibiotic therapy with Rocephin has been initiated given her prior cultures. Urine culture will help further direct antibiotic therapy. Hopefully we will utilize a course of oral antibiotic therapy. Would plan to 6 weeks at this time of discharge given the ongoing recurrent nature and the obstructive process. The goal will be to treat the kidney based infection which may further help improve her status. She'll be due for chemotherapy in the near future. She is very discouraged by her overall clinical condition. Current Visit: Yes Status: Acute Priority: High Code(s): N39.0 - URINARY TRACT INFECTION, SITE NOT SPECIFIED SNOMED Code(s): 93698810 (2) Abdominal pain Current Visit: No Status: Acute Code(s): R10.9 - UNSPECIFIED ABDOMINAL PAIN SNOMED Code(s): 92992234
[2018-11-20] MEDS: ZOLPIDEM 5 MG TAB PO SCH (23:13)
[2018-11-21] MEDS: HYDROmorphone 1 MG/ML 1 ML SYRINGE IVP PRN ×4 (03:05→21:06)
[2018-11-21] MEDS: SODIUM CHLORIDE 0.9% 1,000 ML IV SCH ×3 (05:43→21:07)
[2018-11-21] MEDS: DILTIAZEM CD 120 MG CAP.ER.24H PO SCH (08:44)
[2018-11-21] MEDS: GABAPENTIN 300 MG CAP PO SCH ×3 (08:44→21:07)
[2018-11-21] MEDS: PANTOPRAZOLE 40 MG TABLET PO SCH (08:44)
[2018-11-21] MEDS: NON-FORMULARY DRUG (Mirabegron [Myrbetriq] 50 MG) PO SCH (09:37)
[2018-11-21] MEDS: ESCITALOPRAM 20 MG TAB PO SCH (09:37)
[2018-11-21] MEDS: HYDROcodone/APAP 5-325MG 1 EACH TAB PO PRN ×2 (09:49→18:40)
--- NOTE | 2018-11-21 17:59 | PN ---
PROGRESS NOTE CHIEF COMPLAINT: Cystitis, pyelonephritis and CA of the ovary. HISTORY OF PRESENT ILLNESS: This lady is still having pain. It is still in the right low back area. Her cultures have been negative. Temperature has been down. PHYSICAL EXAMINATION: ABDOMEN: Nontender and she is not tender in the flanks. Chest is clear. Cardiac exam is normal. Extremities are normal. IMPRESSION: 1. Back pain. 2. Possible urinary tract infection and and/or pyelonephritis, but cultures have been negative. 3. Carcinoma of the ovary. PLAN: Continue to treat and await for further recommendations from Infectious Disease as well as urology. MMODL / IJN: [id number] /
[2018-11-21] MEDS ORDERED: SILVER GEL 44.4 APPLIC/44.4 ML TUBE TOPICAL SCH (19:00)
[2018-11-21] MEDS: TAMSULOSIN 0.4 MG CAP.ER.24H PO SCH (21:07)
--- NOTE | 2018-11-21 22:59 | P.PN ---
Subjective Progress Note Date: 11/21/18 his is a 62-year-old female patient who has a past history significant for ovarian cancer has been on maintenance chemotherapy and under the treatment of Dr. Sean Trinidad, [place]. Patient states that she was recently taken off chemotherapy 3 weeks ago as her protein levels are too high in her urine. This is to be reevaluated and possibly start a new maintenance chemotherapy. Patient states that she did have him abdominal pain and constipation with cramping pain about 2 weeks ago and went to [facility] and underwent a CAT scan and she was sent home. At that time she did not have the vomiting nor fever. Patient last presentation with sudden onset of nausea and vomiting along with abdominal pain and cramping and constipation. She did have a bowel movement that waxed and waned between normal and diarrhea. Diarrhea is now resolved. She does complain of pressure and burning when she initiates urination. She has history of frequent urinary tract infections. She presented with nausea vomiting and fevers. Recent CAT scan of the abdomen and pelvis revealed a soft tissue mass in the right hemipelvis of a recurrent or residual neoplasm. Bilateral [place] right greater than left possible early small bowel obstruction secondary to mass. Mild hepatic steatosis. During her recent stay she was evaluated by urology and their recommendations exchange of the urostomy tube into the right kidney where there is a significant ongoing obstruction. It was not evident that the urostomy tube was blocked after it was removed. The patient relates since that change and she completed her antibiotic therapy within days again started developing significant symptoms of dysuria urinary frequency flank pain that radiates from the right and left flank. With fever that she was feeling so poorly she can presented to the emergency center has now been admitted for further antibiotic therapy and plan. 11/21/2018 patient is starting to feel somewhat better. Pain is under better control. Fever is resolved. Flank pain is improving. She is concerned because there has been notation that her pain could be related to her ovarian cancer. She's due for an outpatient computed tomography scan on Monday. Objective - Vital Signs Vital signs: Vital Signs Temp 99.2 F 11/21/18 19:46 Pulse 71 11/21/18 19:46 Resp 18 11/21/18 20:00 BP 121/58 11/21/18 19:46 Pulse Ox 96 11/21/18 19:46 Intake & Output 11/21/18 11/21/18 11/22/18 06:59 18:59 06:59 Intake Total 1320 Balance 1320 Intake: Oral 1120 Other 200 Other: # Voids 2 - Exam Gen: This is a 62-year-old female patient. She is sleeping awakens easily to verbal stimuli. She appears to be in no acute distress. HEENT: Head is atraumatic, normocephalic. Pupils equal, round. Sclerae is anicteric. Oral mucous members are slightly dry. No thrush noted. Dentition is in good order. NECK: Supple. No JVD. No lymphadenopathy. No thyromegaly. LUNGS: Diminished. No wheezes. No intercostal retractions. HEART: Regular rate and rhythm. No murmur. ABDOMEN: Soft. Bowel sounds are present. No tenderness. No suprapubic tenderness. Mild CVA tenderness bilaterally more on the right. EXTREMITIES: No pedal edema. No calf tenderness. Dorsalis pedis +2 bilaterally. NEUROLOGICAL: Patient is awake, alert and oriented x3 - Labs CBC & Chem 7: 11/20/18 01:00 11/20/18 01:00 Labs: Microbiology - Last 24 Hours (Table) 11/19/18 23:40 Urine Culture - Final Urine,Clean Catch Laboratory Results WBC 4.1 k/uL (3.8-10.6) 11/20/18 01:00 RBC 2.85 m/uL (3.80-5.40) L 11/20/18 01:00 Hgb 9.1 gm/dL (11.4-16.0) L 11/20/18 01:00 Hct 26.7 % (34.0-46.0) L 11/20/18 01:00 MCV 93.7 fL (80.0-100.0) 11/20/18 01:00 MCH 31.7 pg (25.0-35.0) 11/20/18 01:00 MCHC 33.9 g/dL (31.0-37.0) 11/20/18 01:00 RDW 15.1 % (11.5-15.5) 11/20/18 01:00 Plt Count 154 k/uL (150-450) 11/20/18 01:00 Neutrophils % (Manual) 34 % 11/20/18 01:00 Lymphocytes % (Manual) 38 % 11/20/18 01:00 Monocytes % (Manual) 22 % 11/20/18 01:00 Eosinophils % (Manual) 6 % 11/20/18 01:00 Myelocytes % 1 % 11/20/18 01:00 Neutrophils # (Manual) 1.39 k/uL (1.3-7.7) 11/20/18 01:00 Lymphocytes # (Manual) 1.56 k/uL (1.0-4.8) 11/20/18 01:00 Monocytes # (Manual) 0.90 k/uL (0-1.0) 11/20/18 01:00 Eosinophils # (Manual) 0.25 k/uL (0-0.7) 11/20/18 01:00 Myelocytes # (Manual) 0.04 k/uL (0) H 11/20/18 01:00 Nucleated RBCs 0 /100 WBC (0-0) 11/20/18 01:00 Manual Slide Review Performed 11/20/18 01:00 Hypochromasia Slight 11/20/18 01:00 Poikilocytosis Slight 11/20/18 01:00 Sodium 140 mmol/L (137-145) 11/20/18 01:00 Potassium 4.2 mmol/L (3.5-5.1) 11/20/18 01:00 Chloride 105 mmol/L (98-107) 11/20/18 01:00 Carbon Dioxide 26 mmol/L (22-30) 11/20/18 01:00 Anion Gap 9 mmol/L 11/20/18 01:00 BUN 18 mg/dL (7-17) H 11/20/18 01:00 Creatinine 0.91 mg/dL (0.52-1.04) 11/20/18 01:00 Est GFR (CKD-EPI)AfAm 77 (>60 ml/min/1.73 sqM) 11/20/18 01:00 Est GFR (CKD-EPI)NonAf 66 (>60 ml/min/1.73 sqM) 11/20/18 01:00 Glucose 101 mg/dL (74-99) H 11/20/18 01:00 Plasma Lactic Acid Chad 0.9 mmol/L (0.7-2.0) 11/20/18 01:00 Calcium 9.1 mg/dL (8.4-10.2) 11/20/18 01:00 Total Bilirubin 0.2 mg/dL (0.2-1.3) 11/20/18 01:00 AST 31 U/L (14-36) 11/20/18 01:00 ALT 23 U/L (9-52) 11/20/18 01:00 Alkaline Phosphatase 68 U/L (38-126) 11/20/18 01:00 Total Protein 6.4 g/dL (6.3-8.2) 11/20/18 01:00 Albumin 3.6 g/dL (3.5-5.0) 11/20/18 01:00 Urine Color Yellow 11/19/18 23:40 Urine Appearance Cloudy (Clear) H 11/19/18 23:40 Urine pH 5.5 (5.0-8.0) 11/19/18 23:40 Ur Specific [place] 1.024 (1.001-1.035) 11/19/18 23:40 Urine Protein 2+ (Negative) H 11/19/18 23:40 Urine Glucose (UA) Negative (Negative) 11/19/18 23:40 Urine Ketones Negative (Negative) 11/19/18 23:40 Urine Blood Moderate (Negative) H 11/19/18 23:40 Urine Nitrite Negative (Negative) 11/19/18 23:40 Urine Bilirubin Negative (Negative) 11/19/18 23:40 Urine Urobilinogen <2.0 mg/dL (<2.0) 11/19/18 23:40 Ur Leukocyte Esterase Small (Negative) H 11/19/18 23:40 Urine RBC >182 /hpf (0-5) H 11/19/18 23:40 Urine WBC 39 /hpf (0-5) H 11/19/18 23:40 Ur Squamous Epith Cells 2 /hpf (0-4) 11/19/18 23:40 Urine Mucus Rare /hpf (None) H 11/19/18 23:40 Microbiology 11/19/18 23:40 Urine,Clean Catch Urine Culture - Final Assessment and Plan (1) UTI (urinary tract infection) Narrative/Plan: 63-year-old woman who has a very significant past medical history related to ovarian cancer in difficulties with obstructive uropathy. During her most recent stay she did have exchange of the right urostomy tube was continued have difficulties with the completion of antibiotic therapy in that she had significant recurrence of her symptoms. These included the fever chills dysuria and flank pain. She has not had gato hematuria. Because she felt so poorly s he presents to Hospital for further evaluation. Antibiotic therapy with Rocephin has been initiated given her prior cultures. Urine culture will help further direct antibiotic therapy. Hopefully we will utilize a course of oral antibiotic therapy. Would plan to 6 weeks at this time of discharge given the ongoing recurrent nature and the obstructive process. The goal will be to treat the kidney based infection which may further help improve her status. She'll be due for chemotherapy in the near future. She is very discouraged by her overall clinical condition. 11/21/2018 patient is started to feel somewhat better. Cultures are pending and negative so far however there was concern that gram-negative bacilli was seen in the urinalysis. Blood cultures negative. Is a patient is improving and she has been seen by urology without plans for anything interventional at this point in time likely related for discharge home the next short period of time of her pain is improving. Current plan will be for a course of oral antibiotic therapy in the outpatient setting planning approximately 6 weeks to see if this can impact her current course. Current Visit: Yes Status: Acute Priority: High Code(s): N39.0 - URINARY TRACT INFECTION, SITE NOT SPECIFIED SNOMED Code(s): 00550945 (2) Abdominal pain Current Visit: No Status: Acute Code(s): R10.9 - UNSPECIFIED ABDOMINAL PAIN SNOMED Code(s): 86009316
[2018-11-21] MEDS: ZOLPIDEM 5 MG TAB PO SCH (23:22)
[2018-11-22] MEDS: HYDROmorphone 1 MG/ML 1 ML SYRINGE IVP PRN ×4 (03:15→19:58)
[2018-11-22] MEDS: SODIUM CHLORIDE 0.9% 1,000 ML IV SCH ×2 (05:15→15:36)
[2018-11-22] MEDS: ONDANSETRON 4 MG/2 ML VIAL IVP PRN ×2 (05:15→22:49)
--- NOTE | 2018-11-22 06:36 | P.GSCN ---
History of Present Illness Consult date: 11/21/18 Reason for Consult: UTI Requesting physician: Kevin Metzger History of present illness: The patient is a 63-year-old female well known to me. She has a history of ovarian cancer which has been present for over 10 years and recurred in the right retroperitoneum and resulted in right hydronephrosis. I initially e valuated her in October 2017 and she underwent placement of a right double-J catheter. She had several enterococcus urinary tract infections over the fall of 2017. Her right double-J catheter was exchanged in [facility] in 04/2018. The stent was last exchanged by Dr. Unger in late 07/2018. She had several enterococcus urinary tract infections this spring and received Invanz as antibiotic treatment. Urine culture on 10/09 and again on 10/[address] scan of the abdomen and pelvis on 10/01 showed no evidence of right hydronephrosis and good position of the right double-J catheter. Patient was seen in the office on 10/22 and at that time she was complaining of urinary frequency which had not responded well to Myrbetriq and tamsulosin. She was given a prescription for Vesicare 5 mg daily to be used if the frequency persisted. She was subsequently hospitalized and ultrasound showed evidence of right hydronephrosis. She underwent right ureteral stent change on November 02, 2018. She is now admitted with pain and is receiving IV hydration and parenteral antibiotics. She states that she is feeling better. The urine culture is negative. 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 History of Any Multi-Drug Resistant Organisms: VRE Year Discovered:: 01/26/18 MDRO Source:: urine Past Surgical History: Hysterectomy Additional Past Surgical History / Comment(s): ovarian cancer with bilateral oopherectomy/hysterectomy 2005; 2 open exploratory abdominal surgery, R chest mediport placed 2011, bilateral retrograde pyelogram cystoscopy with R ureter stent and recent stent exchange, jaws have pins d/t surgery for TMJ, colonoscopy, Past Anesthesia/Blood Transfusion Reactions: No Reported Reaction Additional Past Anesthesia/Blood Transfusion Reaction / Comm: Pt has received blood in past without reaction. Date of Last Stent Placement:: 2011 Smoking Status: Never smoker - Past Family History Mother Family Medical History: Diabetes Mellitus Brother(s) Family Medical History: Cancer Additional Family Medical History / Comment(s): lung cancer- since passed Sister(s) Family Medical History: CVA/TIA Father Family Medical History: Dementia, Neurologic Disorder Additional Family Medical History / Comment(s): Alzheimer's Medications and Allergies Home Medications Medication Instructions Recorded Confirmed Type Diltiazem HCl [Diltiazem 24Hr ER] 120 mg PO DAILY 08/25/14 11/20/18 History Gabapentin [Neurontin] 300 mg PO TID 10/17/17 11/20/18 History Esomeprazole Magnesium [NexIUM] 20 mg PO DAILY 07/12/18 11/20/18 History Tamsulosin [Flomax] 0.4 mg PO HS 09/14/18 11/20/18 History Zolpidem [Ambien] 5 mg PO HS 09/14/18 11/20/18 History Hydrocodone/Acetaminophen [[place] 1 tab PO QID PRN 10/04/18 11/20/18 History 5-325] Mirabegron [Myrbetriq] 50 mg PO DAILY 11/19/18 11/20/18 History Allergies Allergy/AdvReac Type Severity Reaction Status Date / Time adhesive Allergy Rash/Hives Verified 11/20/18 08:37 carboplatin Allergy Anaphylaxis Verified 11/20/18 08:37 iodine Allergy Rash/Hives Verified 11/20/18 08:37 Penicillins Allergy Rash/Hives Verified 11/20/18 08:37 codeine AdvReac Nausea & Verified 11/20/18 08:37 Vomiting morphine AdvReac Nausea & Verified 11/20/18 08:37 Vomiting Surgical - Exam Vital Signs Temp Pulse Resp BP Pulse Ox 98.6 F 76 18 140/85 99 11/19/18 22:54 11/19/18 22:54 11/19/18 22:54 11/19/18 22:54 11/19/18 22:54 - General well developed, well nourished, no distress - Respiratory normal respiratory effort - Abdomen Abdomen: soft, non tender, no guarding, no rigid, no rebound - Psychiatric oriented to time, oriented to person, oriented to place, speech is normal, memory intact Results - Labs 11/20/18 01:00 11/20/18 01:00 Microbiology - Last 24 Hours (Table) 11/19/18 23:40 Urine Culture - Final Urine,Clean Catch Assessment and Plan (1) Hydronephrosis Current Visit: No Status: Acute Code(s): N13.30 - UNSPECIFIED HYDRONEPHROSIS SNOMED Code(s): 45758189 (2) UTI (urinary tract infection) Current Visit: Yes Status: Acute Priority: High Code(s): N39.0 - URINARY TRACT INFECTION, SITE NOT SPECIFIED SNOMED Code(s): 10883904 Plan: The cause of Mrs. Galloway's pain is somewhat unclear. She is feeling better, presumably due to antibiotics, though as stated her urine culture was negative. I will defer antibiotic management to Dr. Concepcion. She is scheduled to undergo a repeat CT scan on 11/24/2018. I have asked her to be sure that the results are forwarded to me, as this will provide beneficial information including verification that her stent is properly positioned and that there is no (or minimal) hydronephrosis. She should resume Myrbetriq and tamsulosin, as this did provide some symptomatic relief prior to her recent stent change. Please notify me if I can be of any further assistance.
[2018-11-22] MEDS: HYDROcodone/APAP 5-325MG 1 EACH TAB PO PRN ×2 (06:39→12:32)
[2018-11-22] MEDS: DILTIAZEM CD 120 MG CAP.ER.24H PO SCH (09:03)
[2018-11-22] MEDS: GABAPENTIN 300 MG CAP PO SCH ×3 (09:03→19:57)
[2018-11-22] MEDS: ESCITALOPRAM 20 MG TAB PO SCH (09:03)
[2018-11-22] MEDS: PANTOPRAZOLE 40 MG TABLET PO SCH (09:03)
[2018-11-22] MEDS: NON-FORMULARY DRUG (Mirabegron [Myrbetriq] 50 MG) PO SCH (12:29)
--- NOTE | 2018-11-22 19:37 | PN ---
PROGRESS NOTE CHIEF COMPLAINT: Carcinoma of the ovary, urinary tract infection, pyelonephritis. HISTORY OF PRESENT ILLNESS: This lady is having increasing pain. Temperature has been down. Her cultures have been negative, which is confusing. She is being followed by Infectious Disease. PHYSICAL EXAMINATION: She is a little bit tender in the right flank area and in the right lower quadrant. She remains pale. Chest is clear. Cardiac exam is normal. Extremities are normal. IMPRESSION: 1. Right flank pain. 2. History of pyelonephritis. 3. History of obstructive ureteropathy on the right with recent stent replacement. 4. Carcinoma of the ovary. PLAN: Increase her analgesic management and continue with IV antibiotics. Urology apparently does not have anything further to offer her as an inpatient. MMODL / IJN: [id number] /
[2018-11-22] MEDS: TAMSULOSIN 0.4 MG CAP.ER.24H PO SCH (19:57)
[2018-11-22] MEDS: HYDROcodone/APAP 10-325MG 1 EACH TAB PO PRN (22:19)
[2018-11-22] MEDS: ZOLPIDEM 5 MG TAB PO SCH (22:20)
--- NOTE | 2018-11-22 22:43 | P.PN ---
Subjective Progress Note Date: 11/22/18 his is a 62-year-old female patient who has a past history significant for ovarian cancer has been on maintenance chemotherapy and under the treatment of Dr. Sean Trinidad, [place]. Patient states that she was recently taken off chemotherapy 3 weeks ago as her protein levels are too high in her urine. This is to be reevaluated and possibly start a new maintenance chemotherapy. Patient states that she did have him abdominal pain and constipation with cramping pain about 2 weeks ago and went to [facility] and underwent a CAT scan and she was sent home. At that time she did not have the vomiting nor fever. Patient last presentation with sudden onset of nausea and vomiting along with abdominal pain and cramping and constipation. She did have a bowel movement that waxed and waned between normal and diarrhea. Diarrhea is now resolved. She does complain of pressure and burning when she initiates urination. She has history of frequent urinary tract infections. She presented with nausea vomiting and fevers. Recent CAT scan of the abdomen and pelvis revealed a soft tissue mass in the right hemipelvis of a recurrent or residual neoplasm. Bilateral [place] right greater than left possible early small bowel obstruction secondary to mass. Mild hepatic steatosis. During her recent stay she was evaluated by urology and their recommendations exchange of the urostomy tube into the right kidney where there is a significant ongoing obstruction. It was not evident that the urostomy tube was blocked after it was removed. The patient relates since that change and she completed her antibiotic therapy within days again started developing significant symptoms of dysuria urinary frequency flank pain that radiates from the right and left flank. With fever that she was feeling so poorly she can presented to the emergency center has now been admitted for further antibiotic therapy and plan. 11/21/2018 patient is starting to feel somewhat better. Pain is under better control. Fever is resolved. Flank pain is improving. She is concerned because there has been notation that her pain could be related to her ovarian cancer. She's due for an outpatient computed tomography scan on Monday. 11/22/2018 patient is feeling better but is still having some significant flank pain. She is not having further fevers or chills. Dysuria seems to be somewhat improved but again is having or flank pain. Short with the primary team to improve her pain. Objective - Vital Signs Vital signs: Vital Signs Temp 98.8 F 11/22/18 15:28 Pulse 82 11/22/18 15:28 Resp 18 11/22/18 15:28 BP 131/63 11/22/18 15:28 Pulse Ox 92 L 11/22/18 15:28 Intake & Output 11/22/18 11/22/18 11/23/18 06:59 18:59 06:59 Intake Total 922 Balance 922 Intake: Oral 722 Other 200 Other: # Voids 1 1 - Exam Gen: This is a 62-year-old female patient. She is sleeping awakens easily to verbal stimuli. She appears to be in no acute distress. HEENT: Head is atraumatic, normocephalic. Pupils equal, round. Sclerae is an icteric. Oral mucous members are slightly dry. No thrush noted. Dentition is in good order. NECK: Supple. No JVD. No lymphadenopathy. No thyromegaly. LUNGS: Diminished. No wheezes. No intercostal retractions. HEART: Regular rate and rhythm. No murmur. ABDOMEN: Soft. Bowel sounds are present. No tenderness. No suprapubic tenderness. Mild CVA tenderness bilaterally more on the right. EXTREMITIES: No pedal edema. No calf tenderness. Dorsalis pedis +2 bilaterally. NEUROLOGICAL: Patient is awake, alert and oriented x3 - Labs CBC & Chem 7: 11/20/18 01:00 11/20/18 01:00 Labs: Laboratory Results WBC 4.1 k/uL (3.8-10.6) 11/20/18 01:00 RBC 2.85 m/uL (3.80-5.40) L 11/20/18 01:00 Hgb 9.1 gm/dL (11.4-16.0) L 11/20/18 01:00 Hct 26.7 % (34.0-46.0) L 11/20/18 01:00 MCV 93.7 fL (80.0-100.0) 11/20/18 01:00 MCH 31.7 pg (25.0-35.0) 11/20/18 01:00 MCHC 33.9 g/dL (31.0-37.0) 11/20/18 01:00 RDW 15.1 % (11.5-15.5) 11/20/18 01:00 Plt Count 154 k/uL (150-450) 11/20/18 01:00 Neutrophils % (Manual) 34 % 11/20/18 01:00 Lymphocytes % (Manual) 38 % 11/20/18 01:00 Monocytes % (Manual) 22 % 11/20/18 01:00 Eosinophils % (Manual) 6 % 11/20/18 01:00 Myelocytes % 1 % 11/20/18 01:00 Neutrophils # (Manual) 1.39 k/uL (1.3-7.7) 11/20/18 01:00 Lymphocytes # (Manual) 1.56 k/uL (1.0-4.8) 11/20/18 01:00 Monocytes # (Manual) 0.90 k/uL (0-1.0) 11/20/18 01:00 Eosinophils # (Manual) 0.25 k/uL (0-0.7) 11/20/18 01:00 Myelocytes # (Manual) 0.04 k/uL (0) H 11/20/18 01:00 Nucleated RBCs 0 /100 WBC (0-0) 11/20/18 01:00 Manual Slide Review Performed 11/20/18 01:00 Hypochromasia Slight 11/20/18 01:00 Poikilocytosis Slight 11/20/18 01:00 Sodium 140 mmol/L (137-145) 11/20/18 01:00 Potassium 4.2 mmol/L (3.5-5.1) 11/20/18 01:00 Chloride 105 mmol/L (98-107) 11/20/18 01:00 Carbon Dioxide 26 mmol/L (22-30) 11/20/18 01:00 Anion Gap 9 mmol/L 11/20/18 01:00 BUN 18 mg/dL (7-17) H 11/20/18 01:00 Creatinine 0.91 mg/dL (0.52-1.04) 11/20/18 01:00 Est GFR (CKD-EPI)AfAm 77 (>60 ml/min/1.73 sqM) 11/20/18 01:00 Est GFR (CKD-EPI)NonAf 66 (>60 ml/min/1.73 sqM) 11/20/18 01:00 Glucose 101 mg/dL (74-99) H 11/20/18 01:00 Plasma Lactic Acid [place] 0.9 mmol/L (0.7-2.0) 11/20/18 01:00 Calcium 9.1 mg/dL (8.4-10.2) 11/20/18 01:00 Total Bilirubin 0.2 mg/dL (0.2-1.3) 11/20/18 01:00 AST 31 U/L (14-36) 11/20/18 01:00 ALT 23 U/L (9-52) 11/20/18 01:00 Alkaline Phosphatase 68 U/L (38-126) 11/20/18 01:00 Total Protein 6.4 g/dL (6.3-8.2) 11/20/18 01:00 Albumin 3.6 g/dL (3.5-5.0) 11/20/18 01:00 Urine Color Yellow 11/19/18 23:40 Urine Appearance Cloudy (Clear) H 11/19/18 23:40 Urine pH 5.5 (5.0-8.0) 11/19/18 23:40 Ur Specific [place] 1.024 (1.001-1.035) 11/19/18 23:40 Urine Protein 2+ (Negative) H 11/19/18 23:40 Urine Glucose (UA) Negative (Negative) 11/19/18 23:40 Urine Ketones Negative (Negative) 11/19/18 23:40 Urine Blood Moderate (Negative) H 11/19/18 23:40 Urine Nitrite Negative (Negative) 11/19/18 23:40 Urine Bilirubin Negative (Negative) 11/19/18 23:40 Urine Urobilinogen <2.0 mg/dL (<2.0) 11/19/18 23:40 Ur Leukocyte Esterase Small (Negative) H 11/19/18 23:40 Urine RBC >182 /hpf (0-5) H 11/19/18 23:40 Urine WBC 39 /hpf (0-5) H 11/19/18 23:40 Ur Squamous Epith Cells 2 /hpf (0-4) 11/19/18 23:40 Urine Mucus Rare /hpf (None) H 11/19/18 23:40 Microbiology 11/19/18 23:40 Urine,Clean Catch Urine Culture - Final Assessment and Plan (1) UTI (urinary tract infection) Narrative/Plan: 63-year-old woman who has a very significant past medical history related to ovarian cancer in difficulties with obstructive uropathy. During her most recent stay she did have exchange of the right urostomy tube was continued have difficulties with the completion of antibiotic therapy in that she had signific ant recurrence of her symptoms. These included the fever chills dysuria and flank pain. She has not had gato hematuria. Because she felt so poorly she presents to Hospital for further evaluation. Antibiotic therapy with Rocephin has been initiated given her prior cultures. Urine culture will help further direct antibiotic therapy. Hopefully we will utilize a course of oral antibiotic therapy. Would plan to 6 weeks at this time of discharge given the ongoing recurrent nature and the obstructive process. The goal will be to treat the kidney based infection which may further help improve her status. She'll be due for chemotherapy in the near future. She is very discouraged by her overall clinical condition. 11/21/2018 patient is started to feel somewhat better. Cultures are pending and negative so far however there was concern that gram-negative bacilli was seen in the urinalysis. Blood cultures negative. Is a patient is improving and she has been seen by urology without plans for anything interventional at this point in time likely related for discharge home the next short period of time of her pain is improving. Current plan will be for a course of oral antibiotic therapy in the outpatient setting planning approximately 6 weeks to see if this can impact her current course. 11/22/2018 patient is still having her second flank pain and is having some changes of her pain medications to try to improve that before she is discharged. Antibiotic therapy will be transitioned to cefuroxime shall take 500 mg twice a day planning 40 days of therapy should follow-up in the office approximately prison through her course of antibiotics for further evaluation Current Visit: Yes Status: Acute Priority: High Code(s): N39.0 - URINARY TRACT INFECTION, SITE NOT SPECIFIED SNOMED Code(s): 50823868 (2) Abdominal pain Current Visit: No Status: Acute Code(s): R10.9 - UNSPECIFIED ABDOMINAL PAIN SNOMED Code(s): 35255468
[2018-11-23] MEDS: HYDROmorphone 1 MG/ML 1 ML SYRINGE IVP PRN ×3 (00:08→08:48)
[2018-11-23] MEDS: SODIUM CHLORIDE 0.9% 1,000 ML IV SCH (06:33)
[2018-11-23 07:21] VITALS: BP 154/68; PULSE 69; RESP 18; TEMP 98.5
[2018-11-23] MEDS: ESCITALOPRAM 20 MG TAB PO SCH (08:48)
[2018-11-23] MEDS: DILTIAZEM CD 120 MG CAP.ER.24H PO SCH (08:48)
[2018-11-23] MEDS: GABAPENTIN 300 MG CAP PO SCH (08:48)
[2018-11-23] MEDS: PANTOPRAZOLE 40 MG TABLET PO SCH (08:48)
[2018-11-23] MEDS: ONDANSETRON 4 MG/2 ML VIAL IVP PRN (08:57)
[2018-11-23] MEDS: NON-FORMULARY DRUG (Mirabegron [Myrbetriq] 50 MG) PO SCH (10:48)
[2018-11-23] MEDS: HYDROcodone/APAP 10-325MG 1 EACH TAB PO PRN (11:14)
--- NOTE | 2018-11-23 11:14 | DS ---
DISCHARGE SUMMARY CHIEF COMPLAINT: Flank and abdominal pain. HISTORY OF PRESENT ILLNESS AND PHYSICAL EXAM: Details of this lady's history and physical can be found in the initial workup. LABORATORY STUDIES: While she was in a hospital she had laboratory studies, details of which can be found in the laboratory section of her chart. COURSE IN HOSPITAL: After admission she was placed on bedrest, started his fluids and analgesia. She is seen by Urology who did not have any further recommendations. She is also followed by Infectious Disease. Urine culture came back with no growth. Analgesia program was increased. She was still having some pain, but it was felt she could be discharged by Infectious Disease and will follow her up in the office in several days. FINAL DIAGNOSES: 1. Right-sided flank pain. 2. Right lower quadrant abdominal pain. 3. Right-sided hydronephrosis. 4. Right ureteral obstruction. 5. Right ureteral stent. 6. Advanced single ovarian carcinoma. OPERATIONS: None. CONSULTATION: Infectious Disease and Urology. She is improved. MMODL / IJN: [id number] /
== END 2018-11-23 11:50 | disposition home or self-care (01) | DRG 690 ==
LOC: EC 22:44 → 1SOBS 11-20 08:30 → OBSVTOIN 11-23 08:25
PROVIDERS: ADMIT Family Medicine; ATTEND Family Medicine
DX: N13.6 Pyonephrosis (principal); C79.89 Secondary malignant neoplasm of other specified sites; K76.0 Fatty (change of) liver, not elsewhere classified; E78.5 Hyperlipidemia, unspecified; I25.10 Atherosclerotic heart disease of native coronary artery without angina pectoris; K21.9 Gastro-esophageal reflux disease without esophagitis; F32.9 Major depressive disorder, single episode, unspecified; F41.9 Anxiety disorder, unspecified; K58.0 Irritable bowel syndrome with diarrhea; I10 Essential (primary) hypertension; D64.81 Anemia due to antineoplastic chemotherapy; T45.1X5A Adverse effect of antineoplastic and immunosuppressive drugs, initial encounter; G47.30 Sleep apnea, unspecified; Z79.899 Other long term (current) drug therapy; Z91.048 Other nonmedicinal substance allergy status; Z86.718 Personal history of other venous thrombosis and embolism; Z99.89 Dependence on other enabling machines and devices; Z88.5 Allergy status to narcotic agent; Z88.0 Allergy status to penicillin; Z88.8 Allergy status to other drugs, medicaments and biological substances; Z86.19 Personal history of other infectious and parasitic diseases; Z90.710 Acquired absence of both cervix and uterus; Z90.722 Acquired absence of ovaries, bilateral; Z92.21 Personal history of antineoplastic chemotherapy; Z87.440 Personal history of urinary (tract) infections; Z85.43 Personal history of malignant neoplasm of ovary; Z83.3 Family history of diabetes mellitus; Z80.1 Family history of malignant neoplasm of trachea, bronchus and lung; Z82.3 Family history of stroke; Z82.0 Family history of epilepsy and other diseases of the nervous system
CPT/HCPCS: 36415; 80053; 81001; 83605; 85025; 87086; 96374; 96375; 96376; 99284

== ENCOUNTER 2018-12-14 08:20 | Inpatient (IN) | payer MEDICARE ==
[2018-12-14] MEDS ORDERED: ONDANSETRON 4 MG/2 ML VIAL IVP STA (08:40)
[2018-12-14] MEDS ORDERED: HYDROmorphone 1 MG/ML 1 ML SYRINGE IVP STA ×2 (08:40→12:42)
[2018-12-14] MEDS ORDERED: SODIUM CHLORIDE 0.9% 1,000 ML IV STA ×2 (08:40)
--- NOTE | 2018-12-14 09:02 | ED ---
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 She has had nausea vomiting she denies any fevers chills or sweats. She states the pain is approximately 7-8/10 in severity. He's had decreased oral intake no other modifying factors MD Complaint: dysuria - Related Data Home Medications Medication Instructions Recorded Confirmed Diltiazem HCl [Diltiazem 24Hr ER] 120 mg PO DAILY 08/25/14 12/14/18 Gabapentin [Neurontin] 300 mg PO TID 10/17/17 12/14/18 Esomeprazole Magnesium [NexIUM] 20 mg PO DAILY 07/12/18 12/14/18 Tamsulosin [Flomax] 0.4 mg PO HS 09/14/18 12/14/18 Zolpidem [Ambien] 5 mg PO HS 09/14/18 12/14/18 Hydrocodone/Acetaminophen [Watson 1 tab PO QID PRN 10/04/18 12/14/18 5-325] Mirabegron [Myrbetriq] 50 mg PO DAILY 11/19/18 12/14/18 Previous Rx's Medication Instructions Recorded Cefuroxime Axetil [Ceftin] 500 mg PO BID #60 tab 11/22/18 Escitalopram [Lexapro] 20 mg PO DAILY #30 tab 11/23/18 Allergies Allergy/AdvReac Type Severity Reaction Status Date / Time adhesive Allergy Rash/Hives Verified 12/14/18 09:35 carboplatin Allergy Anaphylaxis Verified 12/14/18 09:35 iodine Allergy Rash/Hives Verified 12/14/18 09:35 Penicillins Allergy Rash/Hives Verified 12/14/18 09:35 codeine AdvReac Nausea & Verified 12/14/18 09:35 Vomiting morphine AdvReac Nausea & Verified 12/14/18 09:35 Vomiting Review of Systems ROS Statement: Those systems with pertinent positive or pertinent negative responses have been documented in the HPI. ROS Other: All systems not noted in ROS Statement are negative. 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 History of Any Multi-Drug Resistant Organisms: VRE Date of last positivie culture/infection: 01/26/18 MDRO Source:: urine Past Surgical History: Hysterectomy Additional Past Surgical History / Comment(s): ovarian cancer with bilateral oopherectomy/hysterectomy 2005; 2 open exploratory abdominal surgery, R chest mediport placed 2011, bilateral retrograde pyelogram cystoscopy with R ureter stent and recent stent exchange, jaws have pins d/t surgery for TMJ, col onoscopy, Past Anesthesia/Blood Transfusion Reactions: No Reported Reaction Additional Past Anesthesia/Blood Transfusion Reaction / Comment(s): Pt has received blood in past without reaction. Date of Last Stent Placement:: 2011 Past Psychological History: Anxiety, Depression Smoking Status: Never smoker Past Alcohol Use History: None Reported Past Drug Use History: None Reported - Past Family History Mother Family Medical History: Diabetes Mellitus Brother(s) Family Medical History: Cancer Additional Family Medical History / Comment(s): lung cancer- since passed Sister(s) Family Medical History: CVA/TIA Father Family Medical History: Dementia, Neurologic Disorder Additional Family Medical History / Comment(s): Alzheimer's General Exam - General Exam Comments Initial Comments: This is a well-developed awake alert oriented history female Limitations: no limitations General appearance: alert, anxious, in distress Head exam: Present: atraumatic, normocephalic, normal inspection Eye exam: Present: normal appearance, PERRL, EOMI. Absent: scleral icterus, conjunctival injection, periorbital swelling ENT exam: Present: mucous membranes dry Neck exam: Present: normal inspection. Absent: tenderness, meningismus, lymphadenopathy Respiratory exam: Present: normal lung sounds bilaterally. Absent: respiratory distress, wheezes, rales, rhonchi, stridor Cardiovascular Exam: Present: normal rhythm, tachycardia, normal heart sounds. Absent: systolic murmur, diastolic murmur, rubs, gallop, clicks GI/Abdominal exam: Present: soft, normal bowel sounds. Absent: distended, tenderness, guarding, rebound, rigid, bruit, pulsatile mass Rectal exam: Present: deferred Extremities exam: Present: normal inspection, full ROM, normal capillary refill. Absent: tenderness, pedal edema, joint swelling, calf tenderness Back exam: Present: normal inspection, full ROM, CVA tenderness (R) Neurological exam: Present: alert, oriented X3, CN II-XII intact Psychiatric exam: Present: normal affect, normal mood Skin exam: Present: warm, dry, intact, normal color. Absent: rash Course Vital Signs 12/14/18 12/14/18 12/14/18 08:22 09:00 10:10 Temperature 98.6 F Pulse Rate 106 H 99 98 Respiratory 18 12 13 Rate Blood Pressure 171/103 148/110 167/87 O2 Sat by Pulse 98 98 98 Oximetry 12/14/18 12/14/18 11:21 12:12 Temperature 98.6 F Pulse Rate 90 Respiratory 12 Rate Blood Pressure 120/86 O2 Sat by Pulse 98 99 Oximetry - Reevaluation(s) Reevaluation #1: 12/14/18 10:31 Patient was getting some relief of his pain medication she is demonstrating e vidence of renal sufficiency dehydration and hypomagnesemia this will be addressed. Medical Decision Making - Medical Decision Making Patient persisted having right flank pain she demonstrates evidence of dehydration and renal insufficiency/AKA I and hypomagnesemia she'll be admitted I did discuss case with Dr. Metzger - Lab Data Result diagrams: 12/14/18 09:04 12/14/18 09:04 Lab Results 12/14/18 12/14/18 12/14/18 Range/Units 09:04 09:04 09:04 WBC 3.8 (3.8-10.6) k/uL RBC 3.15 L (3.80-5.40) m/uL Hgb 9.8 L (11.4-16.0) gm/dL Hct 29.6 L (34.0-46.0) % MCV 93.9 (80.0-100.0) fL MCH 31.0 (25.0-35.0) pg MCHC 33.1 (31.0-37.0) g/dL RDW 14.6 (11.5-15.5) % Plt Count 115 L (150-450) k/uL Neutrophils % 66 % Lymphocytes % 22 % Monocytes % 6 % Eosinophils % 2 % Basophils % 1 % Neutrophils # 2.5 (1.3-7.7) k/uL Lymphocytes # 0.8 L (1.0-4.8) k/uL Monocytes # 0.2 (0-1.0) k/uL Eosinophils # 0.1 (0-0.7) k/uL Basophils # 0.0 (0-0.2) k/uL Sodium 140 (137-145) mmol/L Potassium 3.8 (3.5-5.1) mmol/L Chloride 108 H (98-107) mmol/L Carbon Dioxide 23 (22-30) mmol/L Anion Gap 9 mmol/L BUN 20 H (7-17) mg/dL Creatinine 1.27 H (0.52-1.04) mg/dL Est GFR (CKD-EPI)AfAm 51 (>60 ml/min/1.73 sqM) Est GFR (CKD-EPI)NonAf 45 (>60 ml/min/1.73 sqM) Glucose 111 H (74-99) mg/dL Calcium 9.3 (8.4-10.2) mg/dL Magnesium 1.2 L (1.6-2.3) mg/dL Total Bilirubin 0.3 (0.2-1.3) mg/dL AST 35 (14-36) U/L ALT 31 (9-52) U/L Alkaline Phosphatase 63 (38-126) U/L Creatine Kinase 22 L (30-135) U/L Troponin I <0.012 (0.000-0.034) ng/mL Total Protein 6.5 (6.3-8.2) g/dL Albumin 3.7 (3.5-5.0) g/dL Amylase 64 (30-110) U/L Lipase 91 (23-300) U/L Urine Color Urine Appearance (Clear) Urine pH (5.0-8.0) Ur Specific [place] (1.001-1.035) Urine Protein (Negative) Urine Glucose (UA) (Negative) Urine Ketones (Negative) Urine Blood (Negative) Urine Nitrite (Negative) Urine Bilirubin (Negative) Urine Urobilinogen (<2.0) mg/dL Ur Leukocyte Esterase (Negative) Urine RBC (0-5) /hpf Urine WBC (0-5) /hpf Ur Squamous Epith Cells (0-4) /hpf Urine Bacteria (None) /hpf Hyaline Casts (0-2) /lpf Urine Mucus (None) /hpf 12/14/18 Range/Units 09:04 WBC (3.8-10.6) k/uL RBC (3.80-5.40) m/uL Hgb (11.4-16.0) gm/dL Hct (34.0-46.0) % MCV (80.0-100.0) fL MCH (25.0-35.0) pg MCHC (31.0-37.0) g/dL RDW (11.5-15.5) % Plt Count (150-450) k/uL Neutrophils % % Lymphocytes % % Monocytes % % Eosinophils % % Basophils % % Neutrophils # (1.3-7.7) k/uL Lymphocytes # (1.0-4.8) k/uL Monocytes # (0-1.0) k/uL Eosinophils # (0-0.7) k/uL Basophils # (0-0.2) k/uL Sodium (137-145) mmol/L Potassium (3.5-5.1) mmol/L Chloride (98-107) mmol/L Carbon Dioxide (22-30) mmol/L Anion Gap mmol/L BUN (7-17) mg/dL Creatinine (0.52-1.04) mg/dL Est GFR (CKD-EPI)AfAm (>60 ml/min/1.73 sqM) Est GFR (CKD-EPI)NonAf (>60 ml/min/1.73 sqM) Glucose (74-99) mg/dL Calcium (8.4-10.2) mg/dL Magnesium (1.6-2.3) mg/dL Total Bilirubin (0.2-1.3) mg/dL AST (14-36) U/L ALT (9-52) U/L Alkaline Phosphatase (38-126) U/L Creatine Kinase (30-135) U/L Troponin I (0.000-0.034) ng/mL Total Protein (6.3-8.2) g/dL Albumin (3.5-5.0) g/dL Amylase (30-110) U/L Lipase (23-300) U/L Urine Color Yellow Urine Appearance Cloudy H (Clear) Urine pH 5.0 (5.0-8.0) Ur Specific [place] 1.015 (1.001-1.035) Urine Protein 2+ H (Negative) Urine Glucose (UA) Negative (Negative) Urine Ketones Negative (Negative) Urine Blood Large H (Negative) Urine Nitrite Negative (Negative) Urine Bilirubin Negative (Negative) Urine Urobilinogen <2.0 (<2.0) mg/dL Ur Leukocyte Esterase Moderate H (Negative) Urine RBC 103 H (0-5) /hpf Urine WBC 15 H (0-5) /hpf Ur Squamous Epith Cells 1 (0-4) /hpf Urine Bacteria Occasional H (None) /hpf Hyaline Casts 14 H (0-2) /lpf Urine Mucus Occasional H (None) /hpf - Radiology Data Radiology results: report reviewed, image reviewed Disposition Clinical Impression: Acute kidney injury, Dehydration, Hypomagnesemia syndrome, Diarrhea, History of UTI Disposition: ADMITTED IP TO THIS [facility] Condition: Fair Referrals: Kevin Metzger MD [Primary Care Provider] - 1-2 days
[2018-12-14 09:20] LABS: Basophils % (A) 1 %; Eosinophils # (A) 0.1 k/uL (0-0.7); Eosinophils % (A) 2 %; HCT 29.6 % (34.0-46.0); HGB 9.8 gm/dL (11.4-16.0); Lymphocytes # (A) 0.8 k/uL (1.0-4.8); Lymphocytes % (A) 22 %; MCHC 33.1 g/dL (31.0-37.0); MCV 93.9 fL (80.0-100.0); Mean Platelet Volume 8.3; Monocytes # (A) 0.2 k/uL (0-1.0); Monocytes % (A) 6 %; Neutrophils # (A) 2.5 k/uL (1.3-7.7); Neutrophils % (A) 66 %; Platelet Count 115 k/uL (150-450); RBC 3.15 m/uL (3.80-5.40); RDW 14.6 % (11.5-15.5); WBC 3.8 k/uL (3.8-10.6)
[2018-12-14 09:29] LABS: Albumin 3.7 g/dL (3.5-5.0); Calcium 9.3 mg/dL (8.4-10.2); Magnesium 1.2 mg/dL (1.6-2.3); Potassium 3.8 mmol/L (3.5-5.1); Total Bilirubin 0.3 mg/dL (0.2-1.3); Total Protein 6.5 g/dL (6.3-8.2)
[2018-12-14 09:32] LABS: Appearance,Urine Cloudy (Clear); Bacteria,Urine Occasional /hpf; Bilirubin,Urine Negative (Negative); Blood,Urine Large (Negative); Color,Urine Yellow; Glucose,Urine (UA) Negative (Negative); Hyaline Casts,Urine 14 /lpf (0-2); Ketones,Urine Negative (Negative); Leukocyte Esterase,Urine Moderate (Negative); Mucus,Urine Occasional /hpf; Nitrite,Urine Negative (Negative); Protein,Urine 2+ (Negative); RBC,Urine 103 /hpf (0-5); Specific Gravity,Urine 1.015 (1.001-1.035); Squamous Epithelial Cell,Urine 1 /hpf (0-4); Urobilinogen,Urine <2.0 mg/dL (<2.0)
--- NOTE | 2018-12-14 09:37 | XR ---
EXAMINATION TYPE: XR chest 2V DATE OF EXAM: 12/14/2018 COMPARISON: 10/27/2018 HISTORY: Abdominal and chest pain. History of ovarian cancer. TECHNIQUE: Frontal and lateral views of the chest are obtained. FINDINGS: There is no focal air space opacity, pleural effusion, or pneumothorax seen. Right-sided M ediport is present. The cardiac silhouette size is within normal limits. The osseous structures are intact. Cholecystectomy clips are seen. Mild multilevel degenerative changes of the spine are noted. IMPRESSION: No acute cardiopulmonary process.
--- NOTE | 2018-12-14 09:39 | XR ---
EXAMINATION TYPE: XR KUB DATE OF EXAM: 12/14/2018 9:31 AM CLINICAL HISTORY: Recurring UTI. Abdominal pain. History of ovarian cancer. TECHNIQUE: Single upright image of the abdomen was obtained. COMPARISON: 10/01/2018. FINDINGS: Postsurgical changes are seen of the abdomen with numerous surgical sutures scattered throu ghout. Cholecystectomy clips are also seen. Right-sided ureteral stent is present with its proximal p ortion at L3 and distal portion coiled in the region of the urinary bladder. Osseous structures appea r intact. No dilated large or small bowel. Lung bases are well aerated. No pneumoperitoneum seen. IMPRESSION: Nonobstructive bowel gas pattern.
[2018-12-14] MEDS ORDERED: MAGNESIUM SULFATE-D5W PMX 1 GM in DEXTROSE/WATER 1 100ML.BAG IVPB ONE (10:18)
[2018-12-14] MEDS ORDERED: KETOROLAC 30 MG/ML 1 ML VIAL IVP STA (10:30)
[2018-12-14] MEDS ORDERED: NALOXONE 0.4 MG/ML 1 ML VIAL IV PRN (13:07)
[2018-12-14] MEDS: SODIUM CHLORIDE 0.9% 1,000 ML IV SCH (13:35)
[2018-12-14 14:23] VITALS: BMI 23.2
[2018-12-14] MEDS: GABAPENTIN 300 MG CAP PO SCH ×2 (15:11→20:50)
[2018-12-14] MEDS: HYDROmorphone 1 MG/ML 1 ML SYRINGE IVP PRN ×3 (15:14→20:52)
[2018-12-14] MEDS: ONDANSETRON 4 MG/2 ML VIAL IVP PRN (16:51)
[2018-12-14] MEDS: ZOLPIDEM 5 MG TAB PO SCH (20:50)
[2018-12-14] MEDS: TAMSULOSIN 0.4 MG CAP.ER.24H PO SCH (20:50)
[2018-12-14] MEDS ORDERED: CEFDINIR 300 MG CAP PO SCH (21:00)
[2018-12-15] MEDS: SODIUM CHLORIDE 0.9% 1,000 ML IV SCH ×2 (01:41→14:31)
[2018-12-15] MEDS: HYDROmorphone 1 MG/ML 1 ML SYRINGE IVP PRN ×5 (06:31→21:56)
[2018-12-15] MEDS: DILTIAZEM CD 120 MG CAP.ER.24H PO SCH (07:40)
[2018-12-15] MEDS: GABAPENTIN 300 MG CAP PO SCH ×3 (07:40→21:51)
[2018-12-15] MEDS: PANTOPRAZOLE 40 MG TABLET PO SCH (07:40)
[2018-12-15] MEDS: ESCITALOPRAM 20 MG TAB PO SCH (07:40)
[2018-12-15] MEDS: NON-FORMULARY DRUG (Mirabegron [Myrbetriq] 50 MG) PO SCH (07:43)
[2018-12-15] MEDS: HYDROcodone/APAP 5-325MG 1 EACH TAB PO PRN ×2 (07:50→16:42)
[2018-12-15] MEDS ORDERED: ACETAMINOPHEN TAB 325 MG TAB PO PRN (09:18)
[2018-12-15] MEDS: ACETAMINOPHEN TAB 325 MG TAB PO PRN ×2 (09:30→19:56)
--- NOTE | 2018-12-15 15:41 | HP ---
HISTORY AND PHYSICAL CHIEF COMPLAINT: Right flank pain and pyelonephritis. HISTORY OF PRESENT ILLNESS: This is another admission for this 63-year-old white female who has advancing internal ovarian carcinoma on chemotherapy. She has an obstructed right ureter in which a stent has been placed and she is having problems with recurrent infections. She comes in with chills, flank pain, abdominal pain, nausea and vomiting. Symptoms recurred. REVIEW OF SYSTEMS: She has had no other issues such as neurologic problems, shortness of breath, chest pain, cough, heart disease, orthopnea, PND, etc. She does have hypertension. She is not having severe abdominal pain now and she is not vomiting. She is having a little difficulty with diarrhea. She has had no hematuria or dysuria. Past medical history, family history, personal and social histories are all otherwise unremarkable and noncontributory and unchanged. PHYSICAL EXAM: Blood pressure 122/70 with a pulse of 82 respirations 16. She is afebrile. In general she appeared to be pale and chronically ill in appearance. Head, ears, eyes, nose, mouth, and throat were normal. Neck veins are not distended. Thyroid is not enlarged. Chest is clear. Cardiac exam is normal and the abdomen is soft, nontender. There is a fullness across the lower abdomen. Extremities are normal. Neurologically, she is intact. IMPRESSION: 1. Recurrent urinary tract infection. 2. Advancing ovarian carcinoma. 3. Right ureteral obstruction with stent. 4. Hypertension. PLAN: 1. Bed rest. 2. IV fluids. 3. IV antibiotics. 4. IV analgesics and antiemetics. MMODL / IJN: [id number] /
--- NOTE | 2018-12-15 16:25 | PN ---
PROGRESS NOTE CHIEF COMPLAINT: Recurrent urinary tract infection and pyelonephritis. HISTORY OF PRESENT ILLNESS: This lady is still having quite a bit of right flank pain. She is nauseated. She is not running a fever. PHYSICAL EXAM: She is dehydrated. Chest is clear. Cardiac exam demonstrates sinus tachycardia. Abdomen is soft and slightly tender in the lower aspects. Extremities are normal. IMPRESSION: 1. Recurrent urinary tract infection and pyelonephritis. 2. Right ureteral obstruction with stent. 3. Advancing ovarian carcinoma. 4. Hypertension. 5. Depression. PLAN: Continue with IV fluids and antibiotics as well as analgesics and antiemetics. We will also have her seen by Infectious Disease and Urology. MMODL / IJN: [id number] /
[2018-12-15] MEDS: ONDANSETRON 4 MG/2 ML VIAL IVP PRN (19:55)
[2018-12-15] MEDS: TAMSULOSIN 0.4 MG CAP.ER.24H PO SCH (21:50)
[2018-12-15] MEDS: ZOLPIDEM 5 MG TAB PO SCH (21:51)
--- NOTE | 2018-12-15 22:15 | P.CONS ---
History of Present Illness - Reason for Consult Consult date: 12/15/18 - Chief Complaint flank pain - History of Present Illness This is a 62-year-old female patient who has a past history significant for ovarian cancer has been on maintenance chemotherapy and under the treatment of Dr. Hurtado at [facility]. Patient states that she was recently taken off chemotherapy as her protein levels are too high in her urine. This is to be reevaluated and possibly start a new maintenance chemotherapy. Patient states that she did have him abdominal pain and constipation with cramping pain and went to [facility] and underwent a CAT scan and she was sent home. At that time she did not have the vomiting nor fever. Patient last presentation with sudden onset of nausea and vomiting along with abdominal pain and cramping and constipation. She did have a bowel movement that waxed and waned between normal and diarrhea. Diarrhea is now resolved. She does complain of pressure and burning when she initiates urination. She has history of frequent urinary tract infections. She presented with nausea vomiting and fevers. Recent CAT scan of the abdomen and pelvis revealed a soft tissue mass in the right hemipelvis of a recurrent or residual neoplasm. Bilateral Hydroureter right greater than left possible early small bowel obstruction secondary to mass. Mild hepatic steatosis. DBecause of these problems she was again evaluated by urology and their recommendations exchange of the urostomy tube into the right kidney where there is a significant ongoing obstruction. It was not evident that the urostomy tube was blocked after it was removed. She was treated with a course of antibiotic therapy and was having some improvement. She over now rapidly has worsened her symptoms. Increasing abdominal pain increasing flank tenderness as well as increasing dysuria. With these symptoms she can presents to Hospital he was admitted and consult is requested regarding antibiotic therapy with concerns to urinary infection in this complex urological situation with the obstruction related to her ovarian cancer. She does relate that she did restart chemotherapy short while ago. Review of Systems HEENT:Denies headache or acute visual change. Denies sinus or mouth discomforts. Denies neck stiffness or pain. Denies significant oral cavity pain. Denies difficulty on swallowing. Lungs: Denies significant shortness of breath, cough, sputum production, or hemoptysis. Cardiovascular: Denies significant shortness of breath, chest pain, chest wall pain, orthopnea, dyspnea on exertion, syncope Gastrointestinal:Denies nausea, vomiting, diarrhea, constipation, hematemesis, melena, hematochezia. No no significant change of bowel habit noticed. Musculoskeletal: denies significant myalgias or arthralgias. No new joint swelling. Denies new back pain. Skin: Denies new rash or lesions. No new ulcers or wounds are related.. Neuro: Denies headache or visual change. Denies any new onset weakness or difficulty with ambulation. Denies falls or seizures. Psychiatric:Denies anxiety or depression. Endocrine: Has significant fatigue and his loss of further weight. It is noted as the left flank pain and the dysuria and frequency and generalized malaise Past Medical History Past Medical History: Cancer, Deep Vein Thrombosis (DVT), GERD/Reflux, Hy pertension, Sleep Apnea/CPAP/BIPAP Additional Past Medical History / Comment(s): Pt recently admitted to [facility] on 11/23/18 with R flank/abdominal pain/R hydronephrosis, R ureteral obstruction. 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 History of Any Multi-Drug Resistant Organisms: VRE Year Discovered:: 01/26/18 MDRO Source:: urine Past Surgical History: Hysterectomy Additional Past Surgical History / Comment(s): ovarian cancer with bilateral oopherectomy/hysterectomy 2005; 2 open exploratory abdominal surgery, R chest mediport placed 2011, bilateral retrograde pyelogram cystoscopy with R ureter stent and stent exchanges, jaws have pins d/t surgery for TMJ, colonoscopy, Past Anesthesia/Blood Transfusion Reactions: No Reported Reaction Additional Past Anesthesia/Blood Transfusion Reaction / Comm: Pt has received blood in past without reaction. Date of Last Stent Placement:: 2011 Past Psychological History: Anxiety, Depression Additional Psychological History / Comment(s): Single and lives independently. She has a dog named [employer]. She drives. She has used [facility] in the recent past. Retired Smoking Status: Never smoker Past Alcohol Use History: None Reported Additional Past Alcohol Use History / Comment(s): Patient is been a lifelong nonsmoker. She lives at home with her friend and a dog. Past Drug Use History: None Reported - Past Family History Mother Family Medical History: Diabetes Mellitus Brother(s) Family Medical History: Cancer Additional Family Medical History / Comment(s): lung cancer- since passed Sister(s) Family Medical History: CVA/TIA Father Family Medical History: Dementia, Neurologic Disorder Additional Family Medical History / Comment(s): Alzheimer's Medications and Allergies Home Medications and Allergies Comment(s): Current Medications Acetaminophen (Tylenol Tab) 325 - 650 mg PO Q8H PRN PRN Reason: MILD Pain Last Admin: 12/15/18 19:56 Dose: 650 mg Documented by: Hydrocodone Bitart/Acetaminophen ([place] 5-325) 1 each PO QID PRN PRN Reason: MODERATE Pain Last Admin: 12/15/18 16:42 Dose: 1 each Documented by: Diltiazem HCl (Cardizem Cd) 120 mg PO DAILY [facility] Last Admin: 12/15/18 07:40 Dose: 120 mg Documented by: Escitalopram Oxalate (Lexapro) 20 mg PO DAILY [facility] Last Admin: 12/15/18 07:40 Dose: 20 mg Documented by: Gabapentin (Neurontin) 300 mg PO TID [facility] Last Admin: 12/15/18 21:51 Dose: 300 mg Documented by: Hydromorphone HCl (Dilaudid) 1 mg IVP Q3HR PRN PRN Reason: Severe Pain Last Admin: 12/15/18 21:56 Dose: 1 mg Documented by: Sodium Chloride (Saline 0.9%) 1,000 mls @ 80 mls/hr IV .[id number] [facility] Last Admin: 12/15/18 14:31 Dose: Not Given Documented by: Ceftriaxone Sodium 2 gm/ (Sodium Chloride) 50 mls @ 100 mls/hr IVPB Q24HR [facility] Last Admin: 12/15/18 07:40 Dose: 100 mls/hr Documented by: Naloxone HCl (Narcan) 0.2 mg IV Q2M PRN PRN Reason: Opioid Reversal Non-Formulary Medication (Mirabegron [Myrbetriq]) 50 mg PO DAILY [facility] Last Admin: 12/15/18 07:43 Dose: Not Given Documented by: Ondansetron HCl (Zofran) 4 mg IVP Q8HR PRN PRN Reason: Nausea And Vomiting Last Admin: 12/15/18 19:55 Dose: 4 mg Documented by: Pantoprazole Sodium (Protonix) 40 mg PO AC-BRKFST [facility] Last Admin: 12/15/18 07:40 Dose: 40 mg Documented by: Tamsulosin HCl (Flomax) 0.4 mg PO [facility] Last Admin: 12/15/18 21:50 Dose: 0.4 mg Documented by: Zolpidem Tartrate (Ambien) 5 mg PO [facility] Last Admin: 12/15/18 21:51 Dose: 5 mg Documented by: Home Medications Medication Instructions Recorded Confirmed Type Diltiazem HCl [Diltiazem 24Hr ER] 120 mg PO DAILY 08/25/14 12/14/18 History Gabapentin [Neurontin] 300 mg PO TID 10/17/17 12/14/18 History Esomeprazole Magnesium [NexIUM] 20 mg PO DAILY 07/12/18 12/14/18 History Tamsulosin [Flomax] 0.4 mg PO 09/14/18 12/14/18 History Zolpidem [Ambien] 5 mg PO 09/14/18 12/14/18 History Hydrocodone/Acetaminophen [[place] 1 tab PO QID PRN 10/04/18 12/14/18 History 5-325] Mirabegron [Myrbetriq] 50 mg PO DAILY 11/19/18 12/14/18 History Cefuroxime Axetil [Ceftin] 500 mg PO BID #60 tab 11/22/18 12/14/18 Rx Escitalopram [Lexapro] 20 mg PO DAILY #30 tab 11/23/18 12/14/18 Rx Allergies Allergy/AdvReac Type Severity Reaction Status Date / Time adhesive Allergy Rash/Hives Verified 12/14/18 09:35 carboplatin Allergy Anaphylaxis Verified 12/14/18 09:35 iodine Allergy Rash/Hives Verified 12/14/18 09:35 Penicillins Allergy Rash/Hives Verified 12/14/18 09:35 codeine AdvReac Nausea & Verified 12/14/18 09:35 Vomiting morphine AdvReac Nausea & Verified 12/14/18 09:35 Vomiting Physical Exam Vitals: Vital Signs Temp Pulse Resp BP Pulse Ox 12/15/18 15:15 71 16 12/15/18 11:32 98.5 F 71 16 109/58 96 12/15/18 08:00 90 16 12/15/18 04:41 98.6 F 90 16 136/68 97 12/15/18 00:00 74 18 Intake and Output 12/15/18 12/15/18 12/15/18 06:59 14:59 22:59 Intake Total 980 1930 Balance 980 1930 Intake: Intake, IV Titration 560 850 Amount Sodium Chloride 0.9% 1, 560 800 000 ml @ 80 mls/hr IV . [id number] [facility] Rx#:[id number] cefTRIAXone 2 gm In 50 Sodium Chloride 0.9% 50 ml @ 100 mls/hr IVPB Q24HR [facility] Rx#:[id number] Oral 420 1080 Other: Voiding Method Toilet Toilet Toilet # Voids 2 3 3 HEENT: Anicteric conjunctiva are pink and moist nasal mucosa grossly intact without significant lesions, there is no thrush. Neck: The neck is supple without significant lymphadenopathy or thyromegaly. Lungs: Good bilateral air entry without significant crackles or wheezing. There is no significant bronchial sounds. There is no egophony or dullness. Heart: Regular rate and rhythm with an audible S1-S2, no S3 no S4. There is no significant murmur click or rub, PMI was nondisplaced. Abdomen: Positive bowel sounds Abdomen is nondistended it is not rigid he has distinct tenderness especially in the lower quadrants she has some left flank tenderness. There is no erythema or lesions to the abdominal wall Extremities: The upper extremities have excellent pulses they are symmetric, no significant petechiae or telangiectasia. No splinter hemorrhages were noted. The lower extremities are free from significant edema. The peripheral pulses were 2+ and symmetric. Neuro: Awake alert oriented to person place and time. There are no acute new gross focal sensory motor deficits. Results CBC & Chem 7: 12/14/18 09:04 12/14/18 09:04 Labs: Microbiology - Last 24 Hours (Table) 12/14/18 09:04 Urine Culture - Final Urine,Voided Laboratory Results WBC 3.8 k/uL (3.8-10.6) 12/14/18 09:04 RBC 3.15 m/uL (3.80-5.40) L 12/14/18 09:04 Hgb 9.8 gm/dL (11.4-16.0) L 12/14/18 09:04 Hct 29.6 % (34.0-46.0) L 12/14/18 09:04 MCV 93.9 fL (80.0-100.0) 12/14/18 09:04 MCH 31.0 pg (25.0-35.0) 12/14/18 09:04 MCHC 33.1 g/dL (31.0-37.0) 12/14/18 09:04 RDW 14.6 % (11.5-15.5) 12/14/18 09:04 Plt Count 115 k/uL (150-450) L 12/14/18 09:04 Neutrophils % 66 % 12/14/18 09:04 Lymphocytes % 22 % 12/14/18 09:04 Monocytes % 6 % 12/14/18 09:04 Eosinophils % 2 % 12/14/18 09:04 Basophils % 1 % 12/14/18 09:04 Neutrophils # 2.5 k/uL (1.3-7.7) 12/14/18 09:04 Lymphocytes # 0.8 k/uL (1.0-4.8) L 12/14/18 09:04 Monocytes # 0.2 k/uL (0-1.0) 12/14/18 09:04 Eosinophils # 0.1 k/uL (0-0.7) 12/14/18 09:04 Basophils # 0.0 k/uL (0-0.2) 12/14/18 09:04 Sodium 140 mmol/L (137-145) 12/14/18 09:04 Potassium 3.8 mmol/L (3.5-5.1) 12/14/18 09:04 Chloride 108 mmol/L (98-107) H 12/14/18 09:04 Carbon Dioxide 23 mmol/L (22-30) 12/14/18 09:04 Anion Gap 9 mmol/L 12/14/18 09:04 BUN 20 mg/dL (7-17) H 12/14/18 09:04 Creatinine 1.27 mg/dL (0.52-1.04) H 12/14/18 09:04 Est GFR (CKD-EPI)AfAm 51 (>60 ml/min/1.73 sqM) 12/14/18 09:04 Est GFR (CKD-EPI)NonAf 45 (>60 ml/min/1.73 sqM) 12/14/18 09:04 Glucose 111 mg/dL (74-99) H 12/14/18 09:04 Calcium 9.3 mg/dL (8.4-10.2) 12/14/18 09:04 Magnesium 1.2 mg/dL (1.6-2.3) L 12/14/18 09:04 Total Bilirubin 0.3 mg/dL (0.2-1.3) 12/14/18 09:04 AST 35 U/L (14-36) 12/14/18 09:04 ALT 31 U/L (9-52) 12/14/18 09:04 Alkaline Phosphatase 63 U/L (38-126) 12/14/18 09:04 Creatine Kinase 22 U/L (30-135) L 12/14/18 09:04 Troponin I <0.012 ng/mL (0.000-0.034) 12/14/18 09:04 Total Protein 6.5 g/dL (6.3-8.2) 12/14/18 09:04 Albumin 3.7 g/dL (3.5-5.0) 12/14/18 09:04 Amylase 64 U/L (30-110) 12/14/18 09:04 Lipase 91 U/L (23-300) 12/14/18 09:04 Urine Color Yellow 12/14/18 09:04 Urine Appearance Cloudy (Clear) H 12/14/18 09:04 Urine pH 5.0 (5.0-8.0) 12/14/18 09:04 Ur Specific [place] 1.015 (1.001-1.035) 12/14/18 09:04 Urine Protein 2+ (Negative) H 12/14/18 09:04 Urine Glucose (UA) Negative (Negative) 12/14/18 09:04 Urine Ketones Negative (Negative) 12/14/18 09:04 Urine Blood Large (Negative) H 12/14/18 09:04 Urine Nitrite Negative (Negative) 12/14/18 09:04 Urine Bilirubin Negative (Negative) 12/14/18 09:04 Urine Urobilinogen <2.0 mg/dL (<2.0) 12/14/18 09:04 Ur Leukocyte Esterase Moderate (Negative) H 12/14/18 09:04 Urine RBC 103 /hpf (0-5) H 12/14/18 09:04 Urine WBC 15 /hpf (0-5) H 12/14/18 09:04 Ur Squamous Epith Cells 1 /hpf (0-4) 12/14/18 09:04 Urine Bacteria Occasional /hpf (None) H 12/14/18 09:04 Hyaline Casts 14 /lpf (0-2) H 12/14/18 09:04 Urine Mucus Occasional /hpf (None) H 12/14/18 09:04 Microbiology 12/14/18 09:04 Urine,Voided Urine Culture - Final Assessment and Plan (1) Abdominal pain Narrative/Plan: 63 -year-old woman who presents to Hospital for another bout of significant abdominal pain with concerns to recurrence of urinary infection related to her ovarian cancer in the obstruction that she has of her urinary system. She does have ureteral stents in place and they were recently exchanged without evidence of any obstruction. There is evidence of some pyuria and consequent concern to recurrent infection antibiotic therapy with Rocephin is started given her history of some recent infections and based on those pathogens. Urine cultures are processing negative so far. Blood cultures are pending. It may be very prudent for her to have further evaluation from her oncologist regarding her current symptoms. Pattern is starting to emerge after she received chemotherapy she then develops these episodes of significant discomfort and pain that she is worried it is related to infection. The chemotherapy-induced process should be considered also. Antibiotic therapy will be tailored based on culture results. Current Visit: No Status: Acute Code(s): R10.9 - UNSPECIFIED ABDOMINAL PAIN SNOMED Code(s): 23003281 (2) Ovarian cancer Current Visit: No Status: Chronic Priority: Medium Code(s): C56.9 - MALIGNANT NEOPLASM OF UNSPECIFIED OVARY SNOMED Code(s): 230652554
[2018-12-16] MEDS: HYDROmorphone 1 MG/ML 1 ML SYRINGE IVP PRN ×6 (01:00→21:05)
[2018-12-16] MEDS: SODIUM CHLORIDE 0.9% 1,000 ML IV SCH ×2 (02:27→16:56)
[2018-12-16] MEDS: ACETAMINOPHEN TAB 325 MG TAB PO PRN ×2 (03:04→21:45)
[2018-12-16] MEDS: PANTOPRAZOLE 40 MG TABLET PO SCH (08:24)
[2018-12-16] MEDS: HYDROcodone/APAP 5-325MG 1 EACH TAB PO PRN (08:24)
[2018-12-16] MEDS: DILTIAZEM CD 120 MG CAP.ER.24H PO SCH (08:24)
[2018-12-16] MEDS: GABAPENTIN 300 MG CAP PO SCH ×3 (08:24→21:04)
[2018-12-16] MEDS: ESCITALOPRAM 20 MG TAB PO SCH (08:24)
[2018-12-16] MEDS: NON-FORMULARY DRUG (Mirabegron [Myrbetriq] 50 MG) PO SCH (08:25)
--- NOTE | 2018-12-16 11:00 | P.GSCN ---
History of Present Illness Consult date: 12/16/18 Reason for Consult: Hydronephrosis, recurrent UTI Requesting physician: Kevin Metzger History of present illness: The patient is a 63-year-old female well known to me. She has a history of ovarian cancer which has been present for over 10 years and recurred in the right retroperitoneum and resulted in right hydronephrosis. I initially evaluated her in October 2017 and she underwent placement of a right double-J catheter. She had several enterococcus urinary tract infections over the fall of 2017. Her right double-J catheter was exchanged in [facility] in 04/2018. The stent was last exchanged by Dr. Unger in late 07/2018. She had several enterococcus urinary tract infections this spring and received Invanz as antibiotic treatment. Urine culture on 10/09 and again on 10/[address] scan of the abdomen and pelvis on 10/01 showed no evidence of right hydronephrosis and good position of the right double-J catheter. Patient was seen in the office on 10/22 and at that time she was complaining of urinary frequency which had not responded well to Myrbetriq and tamsulosin. She was subsequently hospitalized and ultrasound showed evidence of right hydronephrosis. She underwent right ureteral stent change on November 02, 2018. She was hospitalized last month, and was treated with IV hydration and parenteral antibiotics. Her urine culture was negative, but her symptoms improved with treatment. She is now admitted with chills, abdominal pain, right flank pain, nausea, and vomiting. The onset of symptoms was 12/12/2018. She is receiving IV hydration and parenteral analgesics and states that she is feeling better. Her urine culture was again negative. Review of Systems - Constitutional Reports chills, Denies fever - Gastrointestinal Reports nausea, Reports vomiting - Genitourinary Genitourinary: Reports flank pain Past Medical History Past Medical History: Cancer, Deep Vein Thrombosis (DVT), GERD/Reflux, Hypertension, Sleep Apnea/CPAP/BIPAP Additional Past Medical History / Comment(s): Pt recently admitted to [facility] on 11/23/18 with R flank/abdominal pain/R hydronephrosis, R ureteral obstruction. Other hx: Current UTI with antibiotics, 2006 Ovarian cancer with surgery/chemo, cancer 08/2017 with abdominal mets and currently receiving chemo, anemia 2ndary to chemotherapy, obstructive uropathy r/t tumor mass in R ureter, recurrent admissions for UTI/SBO/Ureteral Obstruction in 2018, R polynephritis, R leg DVT 2014, bilateral TMJ with surgery/pins, IBS, recently hospitalized for 1 week in October 2018 for a UTI/klebsiella. History of Any Multi-Drug Resistant Organisms: VRE Year Discovered:: 01/26/18 MDRO Source:: urine Past Surgical History: Hysterectomy Additional Past Surgical History / Comment(s): ovarian cancer with bilateral oopherectomy/hysterectomy 2005; 2 open exploratory abdominal surgery, R chest mediport placed 2011, bilateral retrograde pyelogram cystoscopy with R ureter stent and stent exchanges, jaws have pins d/t surgery for TMJ, colonoscopy, Past Anesthesia/Blood Transfusion Reactions: No Reported Reaction Additional Past Anesthesia/Blood Transfusion Reaction / Comm: Pt has received blood in past without reaction. Date of Last Stent Placement:: 2011 Past Psychological History: Anxiety, Depression Additional Psychological History / Comment(s): Single and lives independently. She has a dog named [employer]. She drives. She has used [facility] in the recent past. Retired Smoking Status: Never smoker Past Alcohol Use History: None Reported Additional Past Alcohol Use History / Comment(s): Patient is been a lifelong nonsmoker. She lives at home with her friend and a dog. Past Drug Use History: None Reported - Past Family History Mother Family Medical History: Diabetes Mellitus Brother(s) Family Medical History: Cancer Additional Family Medical History / Comment(s): lung cancer- since passed Sister(s) Family Medical History: CVA/TIA Father Family Medical History: Dementia, Neurologic Disorder Additional Family Medical History / Comment(s): Alzheimer's Medications and Allergies Home Medications Medication Instructions Recorded Confirmed Type Diltiazem HCl [Diltiazem 24Hr ER] 120 mg PO DAILY 08/25/14 12/14/18 History Gabapentin [Neurontin] 300 mg PO TID 10/17/17 12/14/18 History Esomeprazole Magnesium [NexIUM] 20 mg PO DAILY 07/12/18 12/14/18 History Tamsulosin [Flomax] 0.4 mg PO HS 09/14/18 12/14/18 History Zolpidem [Ambien] 5 mg PO HS 09/14/18 12/14/18 History Hydrocodone/Acetaminophen [[place] 1 tab PO QID PRN 10/04/18 12/14/18 History 5-325] Mirabegron [Myrbetriq] 50 mg PO DAILY 11/19/18 12/14/18 History Cefuroxime Axetil [Ceftin] 500 mg PO BID #60 tab 11/22/18 12/14/18 Rx Escitalopram [Lexapro] 20 mg PO DAILY #30 tab 11/23/18 12/14/18 Rx Allergies Allergy/AdvReac Type Severity Reaction Status Date / Time adhesive Allergy Rash/Hives Verified 12/14/18 09:35 carboplatin Allergy Anaphylaxis Verified 12/14/18 09:35 iodine Allergy Rash/Hives Verified 12/14/18 09:35 Penicillins Allergy Rash/Hives Verified 12/14/18 09:35 codeine AdvReac Nausea & Verified 12/14/18 09:35 Vomiting morphine AdvReac Nausea & Verified 12/14/18 09:35 Vomiting Surgical - Exam Vital Signs Temp Pulse Resp BP Pulse Ox 98.6 F 106 H 18 171/103 98 12/14/18 08:22 12/14/18 08:22 12/14/18 08:22 12/14/18 08:22 12/14/18 08:22 - General well developed, well nourished, no distress - Respiratory normal respiratory effort - Abdomen Abdomen: soft, non tender, no guarding, no rigid, no rebound - Psychiatric oriented to time, oriented to person, oriented to place, speech is normal, memory intact Results - Labs 12/14/18 09:04 12/14/18 09:04 Microbiology - Last 24 Hours (Table) 12/14/18 09:04 Urine Culture - Final Urine,Voided - Imaging Abdominal x-ray: report reviewed, image reviewed Assessment and Plan (1) Hydronephrosis Current Visit: No Status: Acute Code(s): N13.30 - UNSPECIFIED HYDRONEPHROSIS SNOMED Code(s): 37093919 Plan: Ms. Galloway has experienced recurrent episodes of flank pain. At times, the presumptive diagnosis has been UTI, but cultures have been negative on some of these locations. I reviewed her KUB x-ray, which shows that her stent has migrated distally, leaving the proximal end of the stent within the right proximal ureter. At the time of initial stent placement in October 2017, a retrograde pyelogram indicated that the obstruction was within the right proximal ureter. Therefore, her pain may be the result of the fact that the stent has migrated distally resulting in recurrent ureteral obstruction. She is scheduled to receive her next cycle of chemotherapy on 12/25/2018. I intend to make arrangements to change her stent later this week, likely Monday or , though this can be done as an outpatient. Time with Patient: Greater than 30
[2018-12-16] MEDS: ONDANSETRON 4 MG/2 ML VIAL IVP PRN (16:56)
--- NOTE | 2018-12-16 19:08 | PN ---
PROGRESS NOTE CHIEF COMPLAINT: Pyelonephritis. HISTORY OF PRESENT ILLNESS: This lady is doing a bit better and still having some flank and abdominal pain. She has had no fever, chills, nausea, vomiting, etc. PHYSICAL EXAM: Abdomen is slightly tender in the right lower quadrant and there is a fullness in the lower abdomen which is related to her ovarian neoplasm. Flanks nontender. IMPRESSION: 1. Pyelonephritis. 2. Right ureteral obstruction. 3. Metastatic ovarian carcinoma. PLAN: Continue with IV fluids and antibiotics while awaiting cultures. She will also be seen by Urology, but it is unlikely they will have anything to offer other than the antibiotics at this point. MMODL / IJN: [id number] /
[2018-12-16] MEDS: TAMSULOSIN 0.4 MG CAP.ER.24H PO SCH (21:04)
[2018-12-16] MEDS: ZOLPIDEM 5 MG TAB PO SCH (21:07)
[2018-12-17] MEDS: HYDROmorphone 1 MG/ML 1 ML SYRINGE IVP PRN ×6 (00:20→23:46)
[2018-12-17] MEDS: SODIUM CHLORIDE 0.9% 1,000 ML IV SCH ×2 (05:44→16:59)
[2018-12-17] MEDS: ESCITALOPRAM 20 MG TAB PO SCH (07:17)
[2018-12-17] MEDS: PANTOPRAZOLE 40 MG TABLET PO SCH (07:17)
[2018-12-17] MEDS: GABAPENTIN 300 MG CAP PO SCH ×3 (07:17→21:13)
[2018-12-17] MEDS: DILTIAZEM CD 120 MG CAP.ER.24H PO SCH (07:17)
[2018-12-17] MEDS: NON-FORMULARY DRUG (Mirabegron [Myrbetriq] 50 MG) PO SCH (08:26)
[2018-12-17] MEDS: ONDANSETRON 4 MG/2 ML VIAL IVP PRN (15:29)
[2018-12-17] MEDS: HYDROcodone/APAP 5-325MG 1 EACH TAB PO PRN (16:59)
--- NOTE | 2018-12-17 19:57 | PN ---
PROGRESS NOTE CHIEF COMPLAINT: Chronic urinary tract infection with right ureteral stent. HISTORY OF PRESENT ILLNESS: This lady is still having significant amount of pain and is still receiving IV analgesics. Apparently surgery is planned for Monday. She is not clear what will be done. We are waiting to see if in the meantime she can go home. REVIEW OF SYSTEMS: She has had no chills or fever. PHYSICAL EXAMINATION: Her chest is clear. The cardiac exam is normal. The abdomen is soft and somewhat tender in the right lower quadrant. She has fullness across the lower abdomen. IMPRESSION: 1. Chronic urinary tract infection. 2. Right ureteral stent. 3. Expanding ovarian carcinoma. PLAN: Continue with the current program and wait to see if she can be discharged for outpatient surgery on Monday. MMODL / IJN: [id number] /
[2018-12-17] MEDS: TAMSULOSIN 0.4 MG CAP.ER.24H PO SCH (20:17)
[2018-12-17] MEDS: ZOLPIDEM 5 MG TAB PO SCH (20:17)
[2018-12-17 20:36] VITALS: RESP 18
[2018-12-17] MEDS: ACETAMINOPHEN TAB 325 MG TAB PO PRN (22:25)
[2018-12-18] MEDS: SODIUM CHLORIDE 0.9% 1,000 ML IV SCH (03:53)
[2018-12-18] MEDS: HYDROmorphone 1 MG/ML 1 ML SYRINGE IVP PRN ×2 (03:54→07:40)
[2018-12-18 04:55] VITALS: BP 129/83; PULSE 79; TEMP 98.5
[2018-12-18] MEDS: DILTIAZEM CD 120 MG CAP.ER.24H PO SCH (07:40)
[2018-12-18] MEDS: ONDANSETRON 4 MG/2 ML VIAL IVP PRN (07:40)
[2018-12-18] MEDS: GABAPENTIN 300 MG CAP PO SCH (07:40)
[2018-12-18] MEDS: ESCITALOPRAM 20 MG TAB PO SCH (07:40)
[2018-12-18] MEDS: PANTOPRAZOLE 40 MG TABLET PO SCH (07:40)
[2018-12-18] MEDS: NON-FORMULARY DRUG (Mirabegron [Myrbetriq] 50 MG) PO SCH (07:41)
[2018-12-18] MEDS: HYDROcodone/APAP 5-325MG 1 EACH TAB PO PRN (11:01)
--- NOTE | 2018-12-19 07:23 | DS ---
DISCHARGE SUMMARY CHIEF COMPLAINT: Back pain and recurrent urinary tract infection with CA of the ovary. HISTORY OF PRESENT ILLNESS AND PHYSICAL EXAM: Details of this lady's history and physical can be found in the initial workup. LABORATORY STUDIES: While she was in the hospital she had laboratory studies, details of which can be found in the laboratory section of her chart. COURSE IN THE HOSPITAL: After admission she was placed on bedrest and started on intravenous fluids, analgesics and antibiotics again. She was seen by Urology and Infectious Disease. She reported that her urine culture came back showing E coli, but it grew out no organisms. Urology felt that the stent had moved and scheduled her for surgery, but not until the end of the week. It was felt that she could go home on the and she will go home on her usual antibiotic regimen that she was on when she came in and she will be seen in the office in the next day or 2 and be scheduled for outpatient surgery on Monday. FINAL DIAGNOSES: 1. Recurrent urinary tract infection secondary to foreign body in right ureter (stent). 2. Displaced stent. 3. Right ureteral obstruction. 4. Advancing carcinoma of the ovary. 5. Hypertension. OPERATIONS: None. CONSULTATIONS: Infectious Disease and Urology. MMODL / IJN: [id number] /
== END 2018-12-18 13:45 | disposition home or self-care (01) | DRG 699 ==
LOC: EC 08:20 → 3NMEDONC 13:12
PROVIDERS: ADMIT Family Medicine; ATTEND Family Medicine
DX: T83.592A Infection and inflammatory reaction due to indwelling ureteral stent, initial encounter (principal); N13.6 Pyonephrosis; C56.9 Malignant neoplasm of unspecified ovary; C79.89 Secondary malignant neoplasm of other specified sites; N17.9 Acute kidney failure, unspecified; T83.122A Displacement of indwelling ureteral stent, initial encounter; E83.42 Hypomagnesemia; E86.0 Dehydration; F32.9 Major depressive disorder, single episode, unspecified; G47.30 Sleep apnea, unspecified; I10 Essential (primary) hypertension; K21.9 Gastro-esophageal reflux disease without esophagitis; K58.9 Irritable bowel syndrome, unspecified; Z99.89 Dependence on other enabling machines and devices; K76.0 Fatty (change of) liver, not elsewhere classified; Z79.899 Other long term (current) drug therapy; Z80.1 Family history of malignant neoplasm of trachea, bronchus and lung; Z82.0 Family history of epilepsy and other diseases of the nervous system; Z83.3 Family history of diabetes mellitus; Z85.43 Personal history of malignant neoplasm of ovary; Z86.718 Personal history of other venous thrombosis and embolism; Z87.440 Personal history of urinary (tract) infections; Z90.710 Acquired absence of both cervix and uterus; Z88.5 Allergy status to narcotic agent; Z88.0 Allergy status to penicillin; Z88.8 Allergy status to other drugs, medicaments and biological substances; D64.81 Anemia due to antineoplastic chemotherapy; T45.1X5A Adverse effect of antineoplastic and immunosuppressive drugs, initial encounter
CPT/HCPCS: 36415; 71046; 74018; 80053; 81001; 82150; 82550; 83690; 83735; 84484; 85025; 87086; 96361; 96365; 96375; 96376; 99284

== ENCOUNTER 2018-12-21 06:20 | Day surgery (SDC) | payer MEDICARE ==
--- NOTE | 2018-12-20 21:27 | P.GSHP ---
History of Present Illness H&P Date: 12/20/18 Chief Complaint: Hydronephrosis The patient is a 63-year-old female well known to me. She has a history of ovarian cancer which has been present for over 10 years and recurred in the right retroperitoneum and resulted in right hydronephrosis. I initially evaluated her in October 2017 and she underwent placement of a right double-J catheter. She had several enterococcus urinary tract infections over the fall of 2017. Her right double-J catheter was exchanged in [facility] in 04/2018. The stent was last exchanged by Dr. Unger in late 07/2018. She had several enterococcus urinary tract infections this spring and received Invanz as antibiotic treatment. Urine culture on 10/09 and again on 10/[address] scan of the abdomen and pelvis on 10/01 showed no evidence of right hydronephrosis and good position of the right double-J catheter. Patient was seen in the office on 10/22 and at that time she was complaining of urinary frequency which had not responded well to Myrbetriq and tamsulosin. She was subsequently hospitalized and ultrasound showed evidence of right hydronephrosis. She underwent right ureteral stent change on November 02, 2018. She was hospitalized last month, and was treated with IV hydration and parenteral antibiotics. Her urine culture was negative, but her symptoms improved with treatment. She was recently admitted with chills, abdominal pain, right flank pain, nausea, and vomiting. The onset of symptoms was 12/12/2018. She was treated with IV hydration and parenteral analgesics. Her urine culture was again negative. I reviewed her KUB x-ray, which shows that her stent has migrated distally, leaving the proximal end of the stent within the right proximal ureter. At the time of initial stent placement in October 2017, a retrograde pyelogram indicated that the obstruction was within the right proximal ureter. Therefore, her pain may be the result of the fact that the stent has migrated distally resulting in recurrent ureteral obstruction. She is scheduled to receive her next cycle of chemotherapy on 12/25/2018, and she now comes for stent change. - Constitutional Constitutional: Reports chills, Denies fever - Gastrointestinal Gastrointestinal: Reports nausea, Reports vomiting - Genitourinary (Female) Genitourinary: Reports flank pain Past Medical History Past Medical History: Cancer, Deep Vein Thrombosis (DVT), GERD/Reflux, Hypertension, Sleep Apnea/CPAP/BIPAP Additional Past Medical History / Comment(s): Current UTI with antibiotics. Admitted to [facility] on 11/23/18 with R flank/abdominal pain/R hydronephrosis, R ureteral obstruction. Hx Ovarian Cancer in 2005 with surgery/chemo. Cancer 08/2017 with abdominal mets, currently receiving chemo. Hx anemia secondary to chemotherapy. Obstructive uropathy r/t tumor mass in R ureter. Recurrent admissions for UTI/SBO/Ureteral obstruction in 2017, R polynephritis, R leg DVT 2014, bilateral TMJ with surgery/pins, IBS. Has CPAP machine. History of Any Multi-Drug Resistant Organisms: VRE Date of last positivie culture/infection: 01/26/18 MDRO Source:: urine Past Surgical History: Hysterectomy Additional Past Surgical History / Comment(s): Bilateral oop herectomy/hysterectomy, 2 open exploratory abdominal surgery, R chest mediport placed 2011, bilateral retrograde pyelogram cystoscopy with R ureter stent and stent exchanges, jaws have pins d/t surgery for TMJ, colonoscopy. Past Anesthesia/Blood Transfusion Reactions: No Reported Reaction Additional Past Anesthesia/Blood Transfusion Reaction / Comment(s): Pt has received blood in past without reaction. Date of Last Stent Placement:: 2011 Past Psychological History: Anxiety, Depression Smoking Status: Never smoker Past Alcohol Use History: None Reported Past Drug Use History: None Reported - Past Family History Mother Family Medical History: Cancer, Diabetes Mellitus Brother(s) Family Medical History: Cancer Additional Family Medical History / Comment(s): Lung cancer- since passed. Sister(s) Family Medical History: CVA/TIA Father Family Medical History: Dementia, Neurologic Disorder Additional Family Medical History / Comment(s): Alzheimer's. Medications and Allergies Home Medications Medication Instructions Recorded Confirmed Type Diltiazem HCl [Diltiazem 24Hr ER] 120 mg PO QAM 08/25/14 12/19/18 History Gabapentin [Neurontin] 300 mg PO TID 10/17/17 12/19/18 History Esomeprazole Magnesium [NexIUM] 20 mg PO QAM 07/12/18 12/19/18 History Tamsulosin [Flomax] 0.4 mg PO HS 09/14/18 12/19/18 History Zolpidem [Ambien] 5 mg PO HS 09/14/18 12/19/18 History Hydrocodone/Acetaminophen [[place] 1 tab PO QID PRN 10/04/18 12/19/18 History 5-325] Mirabegron [Myrbetriq] 50 mg PO DAILY 11/19/18 12/19/18 History Cefuroxime Axetil [Ceftin] 500 mg PO BID #60 tab 11/22/18 12/19/18 Rx Escitalopram [Lexapro] 20 mg PO QAM 12/19/18 12/19/18 History Allergies Allergy/AdvReac Type Severity Reaction Status Date / Time adhesive Allergy Rash/Hives Verified 12/19/18 12:46 carboplatin Allergy Anaphylaxis Verified 12/19/18 12:46 iodine Allergy Rash/Hives Verified 12/19/18 12:46 Penicillins Allergy Rash/Hives Verified 12/19/18 12:46 codeine AdvReac Nausea & Verified 12/19/18 12:46 Vomiting morphine AdvReac Nausea & Verified 12/19/18 12:46 Vomiting Surgical - Exam - General well developed, well nourished, no distress - Respiratory normal respiratory effort - Abdomen Abdomen: soft, non tender, no guarding, no rigid, no rebound - Psychiatric oriented to time, oriented to person, oriented to place, speech is normal, memory intact Results - Imaging Abdominal x-ray: report reviewed, image reviewed Assessment and Plan (1) Hydronephrosis Status: Acute Code(s): N13.30 - UNSPECIFIED HYDRONEPHROSIS SNOMED Code(s): 38043690 Plan: Cystoscopy, right ureteral stent change. Risks associated with the procedure include anesthesia, bleeding, infection, and inability to successfully exchange the stent. She also understands the possibility that her stent will migrate distally in the future.
[~2018-12-21 06:20] MED LIST: CIPROFLOXACIN/DEXTROSE PMX 400 MG in DEXTROSE/WATER 1 200ML.BAG IVPB ONE; DEXAMETHASONE SOD PHOSPHATE 10 MG/ML 1 ML VIAL IV ONE; MIDAZOLAM 2 MG/2 ML VIAL IV PRN; ONDANSETRON 4 MG/2 ML VIAL IVP ONE; fentaNYL (PF) 50 MCG/ML 2 ML AMP IV PRN
[2018-12-21] MEDS ORDERED: LIDOCAINE 1% 20 ML VIAL (10MG/ML) FOR IV START INTRADERMA ONE (07:07)
[2018-12-21] MEDS: LACTATED RINGERS 1,000 ML IV SCH (07:07)
[2018-12-21] MEDS ORDERED: ePHEDrine SULFATE/0.9% NACL/PF 50 MG/5 ML SYRINGE IV ONE (07:41)
[2018-12-21] MEDS ORDERED: fentaNYL (PF) 50 MCG/ML 2 ML AMP ONE ×2 (07:41→12:42)
[2018-12-21] MEDS ORDERED: LIDOCAINE 1% INJ 10MG/ML (20 ML MDV) ONE ×2 (07:41→12:42)
[2018-12-21] MEDS ORDERED: SUCCINYLCHOLINE CHLORIDE 100 MG/5 ML SYR IV ONE (07:41)
[2018-12-21] MEDS ORDERED: MIDAZOLAM 2 MG/2 ML VIAL ONE (07:41)
[2018-12-21] MEDS ORDERED: PROPOFOL 10 MG/ML 20 ML VIAL IV ONE (07:41)
--- NOTE | 2018-12-21 09:09 | FL ---
EXAMINATION TYPE: FL guidance operating room DATE OF EXAM: 12/21/2018 CLINICAL HISTORY: Right ureteral stone removal and ureteroscopy TECHNIQUE: Fluoroscopy. COMPARISON: None. FINDINGS: Fluoroscopic guidance was provided during procedure performed by Dr. Unger. A total of 4 4 seconds of fluoroscopic time was utilized during the procedure and 1 spot image was acquired. IMPRESSION: As Above.
--- NOTE | 2018-12-21 09:27 | P.OP ---
Date of Procedure: 12/21/18 Preoperative Diagnosis: Right hydronephrosis secondary to right proximal ureteral obstruction Postoperative Diagnosis: Same Procedure(s) Performed: Cystoscopy, right ureteral stent removal, right ureteroscopy Anesthesia: DIMITRISA Surgeon: Merlin Unger Estimated Blood Loss (ml): 0 IV fluids (ml): 400 Pathology: none sent Condition: stable Disposition: PACU Indications for Procedure: The patient is a 63-year-old female well known to me. She has a history of ovarian cancer which has been present for over 10 years and recurred in the right retroperitoneum and resulted in right hydronephrosis. I initially evaluated her in October 2017 and she underwent placement of a right double-J catheter. She had several enterococcus urinary tract infections over the fall of 2017. Her right double-J catheter was exchanged in [facility] in 04/2018. The stent was last exchanged by Dr. Unger in late 07/2018. She had several enterococcus urinary tract infections this spring and received Invanz as antibiotic treatment. Urine culture on 10/09 and again on 10/[address] scan of the abdomen and pelvis on 10/01 showed no evidence of right hydronephrosis and good position of the right double-J catheter. Patient was seen in the office on 10/22 and at that time she was complaining of urinary frequency which had not responded well to Myrbetriq and tamsulosin. She was subsequently hospitalized and ultrasound showed evidence of right hydronephrosis. She underwent right ureteral stent change on November 02, 2018. She was hospitalized last month, and was treated with IV hydration and parenteral antibiotics. Her urine culture was negative, but her symptoms improved with treatment. She was recently admitted with chills, abdominal pain, right flank pain, nausea, and vomiting. The onset of symptoms was 12/12/2018. She was treated with IV hydration and parenteral analgesics. Her urine culture was again negative. I reviewed her KUB x-ray, which shows that her stent has migrated distally, leaving the proximal end of the stent within the right pro ximal ureter. At the time of initial stent placement in October 2017, a retrograde pyelogram indicated that the obstruction was within the right proximal ureter. Therefore, her pain may be the result of the fact that the stent has migrated distally resulting in recurrent ureteral obstruction. She is scheduled to receive her next cycle of chemotherapy on 12/25/2018, and she now comes for stent change. Operative Findings: Right proximal ureteral obstruction, preventing successful stent replacement. Description of Procedure: The patient was taken to the operating room and placed in the dorsolithotomy position, with legs supported in Avery stirrups. The external genitalia was prepped and draped sterilely. The 30 lens was used to introduce the 22-[place] Stortz cystoscopic sheath through the urethra and into the bladder under direct vision. The bladder was examined in its entirety. The left ureteral orifice was of normal anatomic location and configuration, and clear urine effluxed from it. No tumors or foreign bodies were seen. Grasping forceps were used to grasp the distal end of the right ureteral stent, which was removed along with the cystoscope. A 0.035 inch Glidewire was passed through the stent, but it could not be passed through the right proximal ureter. Attempts were made to pass an angled tip 0.035 inch Glidewire, but this also was unsuccessful. The cystoscope was removed, and the flexible ureteroscope was advanced into the bladder. The right ureteral orifice was cannulated, and the ureteroscope was slowly advanced under direct vision. Tumors were seen within the mid ureter. The ureteroscope was advanced up to the level of obstruction. The lumen was identified, but it was not possible to advance the Glidewire through the lumen. Multiple unsuccessful attempts were made prior to terminating the procedure. There was no evidence of ureteral perforation. The patient tolerated the procedure well w as taken to the recovery room in stable condition.
[2018-12-21] MEDS ORDERED: LACTATED RINGERS 1,000 ML IV ONE (10:19)
[2018-12-21 11:45] LABS: Basophils % (A) 1 %; Eosinophils % (A) 1 %; HCT 30.9 % (34.0-46.0); HGB 10.1 gm/dL (11.4-16.0); Hypochromasia Slight; Lymphocytes # (A) 0.5 k/uL (1.0-4.8); Lymphocytes % (A) 23 %; MCH 31.6 pg (25.0-35.0); MCHC 32.6 g/dL (31.0-37.0); MCV 97.1 fL (80.0-100.0); Mean Platelet Volume 8.5; Monocytes # (A) 0.1 k/uL (0-1.0); Monocytes % (A) 3 %; Neutrophils # (A) 1.6 k/uL (1.3-7.7); Neutrophils % (A) 70 %; Platelet Count 116 k/uL (150-450); Poikilocytosis Slight; RBC 3.18 m/uL (3.80-5.40); RDW 15.5 % (11.5-15.5); WBC 2.3 k/uL (3.8-10.6)
[2018-12-21 11:53] LABS: INR 0.9 (<1.2); Prothrombin Time 10.1 sec (9.0-12.0)
[2018-12-21 11:55] LABS: Partial Thromboplastin Time 20.3 sec (22.0-30.0)
[2018-12-21] MEDS: fentaNYL (PF) 50 MCG/ML 2 ML AMP IV ONE ×2 (13:05→13:18)
[2018-12-21] MEDS: MIDAZOLAM (PF) 2 MG/2 ML VIAL IV ONE ×2 (13:05→13:19)
[2018-12-21] MEDS ORDERED: LIDOCAINE 1% INJ 10MG/ML (20 ML MDV) SQ ONE (13:06)
[2018-12-21] MEDS ORDERED: diphenhydrAMINE 50 MG/ML 1 ML VIAL ONE (13:17)
[2018-12-21] MEDS ORDERED: diphenhydrAMINE 50 MG/ML 1 ML VIAL IVP ONE (13:19)
[2018-12-21] MEDS ORDERED: IV FLUID CONTINUATION 500 ML IV ONE (13:19)
[2018-12-21] MEDS ORDERED: HYDROcodone/APAP 5-325MG 1 EACH TAB PO STA (15:17)
--- NOTE | 2018-12-21 16:15 | IR ---
EXAMINATION TYPE: IR nephrostomy, US guidance for procedure DATE OF EXAM: 12/21/2018 COMPARISON: NONE HISTORY: Hydronephrosis, ureteral obstruction PROCEDURE: Maximal barrier technique was utilized. The skin overlying the right kidney was localized using ultrasound and the overlying skin prepped and draped. Ultrasound was utilized with sterile technique, ultrasound images obtained and submitted on patient's chart. Lidocaine used for local anesthesia. Skin arlin was made with a scalpel. Access was gained under ultrasound with a 21-gauge needle to the right kidney. Urine returned in the hub of the needle. A 0.018 inch wire was advanced. The access site was dilated and subsequently an 8.5 Greenlandic catheter was advanced over wire in the renal pelvis and fixed in place. Urine returned in the hub of the catheter. Gentle hand injection of contrast was performed, mixed injection with suspected. Using similar technique access was again gained with a 21-gauge needle. Urine returned in the hub of the needle. A 0.018 inch wire was advanced. The access site was dilated and subsequently an 8.5 Greenlandic catheter was advanced over wire in the renal pelvis and fixed in place. Urine returned in the hub of the catheter. Catheter was fixed to the skin with a Percu-Stay and sterile dressing was placed. First catheter was removed. The patient remained in stable condition without complication. The patient was discharged to observation. IMPRESSION: STATUS POST 8 SPANISH NEPHROSTOMY TUBE PLACEMENT WITH ULTRASOUND AND FLUOROSCOPIC GUIDANCE. THIS PROCEDURE WAS PERFORMED BY THE UNDERSIGNED. JANAY
--- NOTE | 2018-12-21 17:02 | P.GSCN ---
History of Present Illness Consult date: 12/21/18 Reason for Consult: hypertension s/p nephrostomy tube placement History of present illness: patient became hypertensive post procedure in observation. Discussed with Dr. Unger who is in agreement to admit to medicine for BP control. Pulse is stable. Discussed with Berenice in [facility] for consult to medicine. Past Medical History Past Medical History: Cancer, Deep Vein Thrombosis (DVT), GERD/Reflux, Hyperte nsion, Sleep Apnea/CPAP/BIPAP Additional Past Medical History / Comment(s): Current UTI with antibiotics. Admitted to [facility] on 11/23/18 with R flank/abdominal pain/R hydronephrosis, R ureteral obstruction. Hx Ovarian Cancer in 2005 with surgery/chemo. Cancer 08/2017 with abdominal mets, currently receiving chemo. Hx anemia secondary to chemotherapy. Obstructive uropathy r/t tumor mass in R ureter. Recurrent admissions for UTI/SBO/Ureteral obstruction in 2017, R polynephritis, R leg DVT 2014, bilateral TMJ with surgery/pins, IBS. Has CPAP machine. History of Any Multi-Drug Resistant Organisms: VRE Year Discovered:: 01/26/18 MDRO Source:: urine Past Surgical History: Hysterectomy Additional Past Surgical History / Comment(s): Bilateral oopherect lilly/hysterectomy, 2 open exploratory abdominal surgery, R chest mediport placed 2011, bilateral retrograde pyelogram cystoscopy with R ureter stent and stent exchanges, jaws have pins d/t surgery for TMJ, colonoscopy. Past Anesthesia/Blood Transfusion Reactions: No Reported Reaction Additional Past Anesthesia/Blood Transfusion Reaction / Comm: Pt has received blood in past without reaction. Date of Last Stent Placement:: 2011 Past Psychological History: Anxiety, Depression Smoking Status: Never smoker Past Alcohol Use History: None Reported Past Drug Use History: None Reported - Past Family History Mother Family Medical History: Cancer, Diabetes Mellitus Brother(s) Family Medical History: Cancer Additional Family Medical History / Comment(s): Lung cancer- since passed. Sister(s) Family Medical History: CVA/TIA Father Family Medical History: Dementia, Neurologic Disorder Additional Family Medical History / Comment(s): Alzheimer's. Medications and Allergies Home Medications Medication Instructions Recorded Confirmed Type Diltiazem HCl [Diltiazem 24Hr ER] 120 mg PO QAM 08/25/14 12/21/18 History Gabapentin [Neurontin] 300 mg PO TID 10/17/17 12/21/18 History Esomeprazole Magnesium [NexIUM] 20 mg PO QAM 07/12/18 12/21/18 History Tamsulosin [Flomax] 0.4 mg PO HS 09/14/18 12/21/18 History Zolpidem [Ambien] 5 mg PO HS 09/14/18 12/21/18 History Hydrocodone/Acetaminophen [[place] 1 tab PO QID PRN 10/04/18 12/21/18 History 5-325] Mirabegron [Myrbetriq] 50 mg PO DAILY 11/19/18 12/21/18 History Cefuroxime Axetil [Ceftin] 500 mg PO BID #60 tab 11/22/18 12/21/18 Rx Escitalopram [Lexapro] 20 mg PO QAM 12/19/18 12/21/18 History Allergies Allergy/AdvReac Type Severity Reaction Status Date / Time adhesive Allergy Rash/Hives Verified 12/21/18 06:51 carboplatin Allergy Anaphylaxis Verified 12/21/18 06:54 iodine Allergy Rash/Hives Verified 12/21/18 06:54 Penicillins Allergy Rash/Hives Verified 12/21/18 06:54 codeine AdvReac Nausea & Verified 12/21/18 06:54 Vomiting morphine AdvReac Nausea & Verified 12/21/18 06:54 Vomiting Surgical - Exam Vital Signs Temp Pulse Resp BP Pulse Ox 98.9 F 77 16 141/67 98 12/21/18 06:57 12/21/18 06:57 12/21/18 06:57 12/21/18 06:57 12/21/18 06:57 Results - Labs 12/21/18 11:18 Abnormal Lab Results - Last 24 Hours (Table) 12/21/18 12/21/18 Range/Units 11:18 11:18 WBC 2.3 L (3.8-10.6) k/uL RBC 3.18 L (3.80-5.40) m/uL Hgb 10.1 L (11.4-16.0) gm/dL Hct 30.9 L (34.0-46.0) % Plt Count 116 L (150-450) k/uL Lymphocytes # 0.5 L (1.0-4.8) k/uL APTT 20.3 L (22.0-30.0) sec
[2018-12-21] MEDS ORDERED: hydrALAZINE HCL 20 MG/ML 1 ML VIAL IVP STA (17:04)
[2018-12-21] MEDS ORDERED: hydrALAZINE HCL 20 MG/ML 1 ML VIAL IVP PRN (17:07)
[2018-12-21 18:10] VITALS: BMI 24.4
[2018-12-21] MEDS ORDERED: HYDROcodone/APAP 5-325MG 1 EACH TAB PO PRN (19:01)
[2018-12-21] MEDS ORDERED: HYDROmorphone 0.5 MG/0.5 ML SYRINGE IVP PRN ×2 (19:07→20:25)
[2018-12-21] MEDS: GABAPENTIN 300 MG CAP PO SCH (20:33)
[2018-12-21 20:48] LABS: Basophils % (A) 0 %; Eosinophils % (A) 1 %; HCT 28.9 % (34.0-46.0); HGB 9.6 gm/dL (11.4-16.0); Lymphocytes # (A) 0.6 k/uL (1.0-4.8); Lymphocytes % (A) 27 %; MCHC 33.2 g/dL (31.0-37.0); MCV 93.5 fL (80.0-100.0); Monocytes # (A) 0.2 k/uL (0-1.0); Monocytes % (A) 9 %; Neutrophils # (A) 1.3 k/uL (1.3-7.7); Neutrophils % (A) 62 %; Platelet Count 131 k/uL (150-450); RBC 3.09 m/uL (3.80-5.40); RDW 14.6 % (11.5-15.5); WBC 2.1 k/uL (3.8-10.6)
[2018-12-21 20:58] LABS: Albumin 3.5 g/dL (3.5-5.0); Calcium 9.5 mg/dL (8.4-10.2); Potassium 3.6 mmol/L (3.5-5.1); Total Bilirubin 0.3 mg/dL (0.2-1.3); Total Protein 6.3 g/dL (6.3-8.2)
[2018-12-21] MEDS ORDERED: TAMSULOSIN 0.4 MG CAP.ER.24H PO SCH (21:00)
[2018-12-21] MEDS ORDERED: ZOLPIDEM 5 MG TAB PO PRN (21:00)
[2018-12-21] MEDS: CEFDINIR 300 MG CAP PO SCH (22:46)
[2018-12-22] MEDS: HYDROmorphone 1 MG/ML 1 ML SYRINGE IM PRN ×2 (00:37→05:23)
--- NOTE | 2018-12-22 02:07 | CONS ---
CONSULTATION REASON FOR CONSULTATION: Regarding hypertension requested by Dr. Unger and Dr. Dempsey. I am covering for Dr. Metzger. HISTORY OF PRESENT ILLNESS: This 63-year-old woman with a past medical history of multiple medical problems including DVT, history of DVT, GERD, hypertension, sleep apnea, history of UTI, history of hysterectomy, history of VRE, history of anxiety, depression, being followed by Dr. Metzger in the outpatient setting was having right hydronephrosis secondary to right proximal ureteral obstruction. Dr. Unger performed cystoscopy, right ureteral stent removal, and right ureteroscopy. Dr. Dempsey performed nephrostomy tube placement and postprocedure the patient became hypertensive in the observation. The patient was admitted to the hospital for further evaluation and treatment. Systolic blood pressure went up to 197. The patient reports that the patient's blood pressure has been never this high. There is no history of fever, rigors or chills. No history of headache, loss of consciousness, or seizures. Patient is complaining of significant back pain at this time. PAST MEDICAL HISTORY: History of DVT, history of GERD, hypertension, sleep apnea, history of UTI, history of VRE, hysterectomy. MEDICATIONS: Prior to admission include home medications are: 1. Flomax 0.4 q.h.s. 2. Neurontin 300 mg t.i.d. 3. Ceftin 500 mg b.i.d. 4. Ambien 5 mg q.h.s. 5. Myrbetriq 50 mg p.o. daily. 6. Kanaranzi 5 mg q.i.d. p.r.n. 7. Nexium 40 mg daily. 8. Lexapro 20 mg q.h.s. 9. Diltiazem 120 mg q.a.m. ALLERGIES: ADHESIVES, CARBOPLATIN, IODINE, PENICILLIN, CODEINE, MORPHINE. FAMILY HISTORY: History of lung cancer in the family. SOCIAL HISTORY: No history of smoking. No history of alcohol. REVIEW OF SYSTEMS: ENT: No diminished vision. No diminished hearing. CARDIOVASCULAR: No angina or palpitations. RESPIRATIONS: No cough. No hemoptysis. GI as mentioned earlier. Diarrhea. mentioned earlier. NERVOUS SYSTEM: No numbness or weakness. ALLERGY/IMMUNOLOGY: No asthma or hayfever. MUSCULOSKELETAL as mentioned earlier. HEMATOLOGY/ONCOLOGY: No history of anemia. ENDOCRINE: No history of diabetes or hypothyroidism. CONSTITUTIONAL: As mentioned earlier. DERMATOLOGY: Negative. RHEUMATOLOGY negative. PSYCHIATRY as mentioned earlier. : As mentioned earlier. PHYSICAL EXAMINATION: Alert and oriented times three. Pulse 77, blood pressure 149/70, respiration 16, temperature 98.1, pulse ox 98% on room air. HEENT: Conjunctivae normal. Oral mucosa moist. NECK is no jugular venous distention. No carotid bruit. No lymph node enlargement. CARDIOVASCULAR: S1, S2 muffled. No S3, no S4. RESPIRATORY: Breath sounds diminished in the bases. No rhonchi. No crackles. ABDOMEN: Soft, nontender. No mass palpable. Minimal renal angle tenderness present. No guarding. No rigidity. LEGS: No edema. No swelling. NERVOUS SYSTEM as mentioned earlier. Moves all 4 limbs. No focal motor or sensory deficits. Lymphatics: No lymph nodes palpable in the neck, axillae or groin. JOINTS: No active deforming arthropathy. LABS: WBC 2.3, hemoglobin 10.1, platelets 116. ASSESSMENT: 1. Hypertensive urgency. 2. Hypertension. 3. Status post right nephrostomy tube placement. 4. Status post right ureteral stent placement and ureteroscopy. 5. Pancytopenia, secondary to chemotherapy. 6. Ovarian cancer. 7. History of deep vein thrombosis. 8. Gastroesophageal reflux disease. 9. Hypertension. 10.Sleep apnea. 11.Urinary tract infection. 12.History of VRE. 13.History of hysterectomy. 14.History of anxiety, depression. 15.NO CODE, NO CPR, NO VENT. RECOMMENDATIONS AND DISCUSSION: In this 63-year-old woman who presented with multiple medical issues, at this time, I recommend to continue current medications, continue symptomatic treatment. I recommend p.r.n. hydralazine. Otherwise, I would also recommend resume the home medications. Symptomatic treatment of the pain. Closely follow with Urology. Further recommendations to follow. We will repeat labs also. MMODL / IJN: [id number] /
[2018-12-22] MEDS: LACTATED RINGERS 1,000 ML IV SCH (05:43)
[2018-12-22 06:44] LABS: Basophils % (A) 0 %; Eosinophils % (A) 1 %; HCT 28.1 % (34.0-46.0); HGB 9.1 gm/dL (11.4-16.0); Lymphocytes # (A) 0.9 k/uL (1.0-4.8); Lymphocytes % (A) 30 %; MCH 30.7 pg (25.0-35.0); MCHC 32.3 g/dL (31.0-37.0); MCV 95.1 fL (80.0-100.0); Mean Platelet Volume 8.5; Monocytes # (A) 0.3 k/uL (0-1.0); Monocytes % (A) 10 %; Neutrophils # (A) 1.6 k/uL (1.3-7.7); Neutrophils % (A) 55 %; Platelet Count 129 k/uL (150-450); RBC 2.96 m/uL (3.80-5.40); RDW 14.7 % (11.5-15.5)
[2018-12-22] MEDS ORDERED: PANTOPRAZOLE 40 MG TABLET PO SCH (07:30)
[2018-12-22] MEDS: GABAPENTIN 300 MG CAP PO SCH (08:43)
[2018-12-22] MEDS: CEFDINIR 300 MG CAP PO SCH (08:43)
[2018-12-22] MEDS ORDERED: DILTIAZEM CD 120 MG CAP.ER.24H PO SCH (09:00)
[2018-12-22] MEDS ORDERED: ESCITALOPRAM 20 MG TAB PO SCH (09:00)
[2018-12-22] MEDS ORDERED: Mirabegron [Myrbetriq] PO SCH (09:00)
[2018-12-22 09:21] VITALS: BP 133/59; PULSE 81; RESP 16; TEMP 98.2
--- NOTE | 2018-12-22 10:16 | P.DS ---
Providers Date of admission: 12/21/2018 Expected date of discharge: 12/22/18 Attending physician: Merlin Unger Consults: 12/21/18 10:54 Consult Physician Routine Consulting Provider: Marlon Darby Consult Reason/Comments: Right hydronephrosis Do you want consulting provider notified?: Already Contacted 12/21/18 19:01 Consult Physician Routine Consulting Provider: Nancy Leslie Consult Reason/Comments: medical management Do you want consulting provider notified?: Yes Primary care physician: Kevin Hern[facility]dezh[facility] Course: The patient has a history of right hydronephrosis secondary to obstruction in the proximal ureter which has been palliated by placement of a double-J catheter. Dr. Unger attempted exchange of the double-J catheter but could not reestablish access through the area of obstruction and the procedure could not be completed. A right percutaneous nephrostomy catheter was placed by Dr. Dempsey. The patient was admitted for observation following the procedure due to uncontrolled hypertension despite minimal pain. She was given Apresoline which was adequate to bring her pressure back into a reasonable range. She was discharged the following morning. It is anticipated that Dr. Unger will set up antegrade exchange of the double-J catheter through the nephrostomy tube sometime next week. Procedures: #1 cystoscopy with attempted exchange of right double-J catheter #2 percutaneous right nephrostomy tube placement Patient Condition at Discharge: Good Plan - Discharge Summary New Discharge Prescriptions: No Action Diltiazem HCl [Diltiazem 24Hr ER] 120 mg PO QAM Gabapentin [Neurontin] 300 mg PO TID Esomeprazole Magnesium [NexIUM] 20 mg PO QAM Tamsulosin [Flomax] 0.4 mg PO HS Zolpidem [Ambien] 5 mg PO HS Hydrocodone/Acetaminophen [[place] 5-325] 1 tab PO QID PRN PRN Reason: Pain Mirabegron [Myrbetriq] 50 mg PO DAILY Cefuroxime Axetil [Ceftin] 500 mg PO BID #60 tab Escitalopram [Lexapro] 20 mg PO QAM Discharge Medication List Diltiazem HCl [Diltiazem 24Hr ER] 120 mg PO QAM 08/25/14 [History] Gabapentin [Neurontin] 300 mg PO TID 10/17/17 [History] Esomeprazole Magnesium [NexIUM] 20 mg PO QAM 07/12/18 [History] Tamsulosin [Flomax] 0.4 mg PO HS 09/14/18 [History] Zolpidem [Ambien] 5 mg PO HS 09/14/18 [History] Hydrocodone/Acetaminophen [[place] 5-325] 1 tab PO QID PRN 10/04/18 [History] Mirabegron [Myrbetriq] 50 mg PO DAILY 11/19/18 [History] Cefuroxime Axetil [Ceftin] 500 mg PO BID #60 tab 11/22/18 [Rx] Escitalopram [Lexapro] 20 mg PO QAM 12/19/18 [History] Follow up Appointment(s)/Referral(s): Merlin Unger MD [STAFF PHYSICIAN] - 1 Week Patient Instructions/Handouts: *[facility] - Cystoscopy Discharge Instructions, *[facility] - (Anesthesia) Discharge Instructions Outpatient Surgery Activity/Diet/Wound Care/Special Instructions: plan to cancel chemo treatment next week until OK with Dr. Unger and interventional radiologist. Antegrade exchange of right double-J catheter will be set up Discharge Disposition: HOME SELF-CARE
--- NOTE | 2018-12-22 23:29 | PN ---
PROGRESS NOTE DATE OF SERVICE: 12/22/2018 I am covering for Dr. Metzger. HISTORY OF PRESENT ILLNESS: This 63-year-old woman is admitted after urological procedure, is complaining of flank pain. The LFTs also elevated. No chest pain. No palpitations. No fever. Yesterday, the patient had blood pressure elevation better controlled today. PHYSICAL EXAM: Alert and oriented times three. Pulse 81, blood pressure 133/50, respiration 16, temperature 98.2, pulse ox 97% on room air. HEENT: Conjunctivae normal. NECK: No JVD. CARDIOVASCULAR: S1, S2 muffled. RESPIRATIONS: Breath sounds diminished in the bases. No rhonchi. No crackles. Abdomen is soft, nontender. No mass palpable. LEGS are no edema. No swelling. CENTRAL NERVOUS SYSTEM: No focal deficits. LABS: WBC 3, hemoglobin 9.1, AST is 1342 and ALT 746. ASSESSMENT: 1. Hypertensive urgency, improved. 2. Hypertension. 3. Elevated LFTs. 4. Status post right nephrostomy tube placement. 5. Status post right ureteral stent placement, ureteroscopy. 6. Pancytopenia secondary to chemotherapy. 7. Ovarian cancer history. 8. History of deep vein thrombosis. 9. Gastroesophageal reflux disease. 10.Hypertension. 11.Sleep apnea. 12.History of urinary tract infection. 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 14.History of hysterectomy. 15.History of anxiety, depression. 16.NO CODE, NO CPR AND NO VENT. RECOMMENDATIONS AND DISCUSSION: Recommend to continue current medications, management and symptomatic treatment. Urology has recommended discharge. Otherwise, at this time, I recommend to follow up labs CBC, CMP, LFTs with Dr. Metzger. Continue to monitor. MMODL / IJN: [id number] /
== END 2018-12-22 12:34 | disposition home or self-care (01) ==
LOC: OR 06:20 → 3SCARD 08:53 → OR 12-22 12:34
PROVIDERS: ATTEND Urology
DX: N13.1 Hydronephrosis with ureteral stricture, not elsewhere classified (principal); T83.511A Infection and inflammatory reaction due to indwelling urethral catheter, initial encounter; Z46.6 Encounter for fitting and adjustment of urinary device; D61.810 Antineoplastic chemotherapy induced pancytopenia; D49.59 Neoplasm of unspecified behavior of other genitourinary organ; I16.0 Hypertensive urgency; K21.9 Gastro-esophageal reflux disease without esophagitis; I10 Essential (primary) hypertension; Z86.718 Personal history of other venous thrombosis and embolism; K58.9 Irritable bowel syndrome, unspecified; Z87.440 Personal history of urinary (tract) infections; G47.33 Obstructive sleep apnea (adult) (pediatric); Z99.89 Dependence on other enabling machines and devices; Z90.710 Acquired absence of both cervix and uterus; C79.89 Secondary malignant neoplasm of other specified sites; Z85.43 Personal history of malignant neoplasm of ovary; Z92.21 Personal history of antineoplastic chemotherapy; Z95.828 Presence of other vascular implants and grafts; F41.9 Anxiety disorder, unspecified; F32.9 Major depressive disorder, single episode, unspecified; F39 Unspecified mood [affective] disorder; Z97.2 Presence of dental prosthetic device (complete) (partial); Z83.3 Family history of diabetes mellitus; Z80.1 Family history of malignant neoplasm of trachea, bronchus and lung; Z82.3 Family history of stroke; Z82.0 Family history of epilepsy and other diseases of the nervous system; Z79.899 Other long term (current) drug therapy; Z79.891 Long term (current) use of opiate analgesic; Z88.5 Allergy status to narcotic agent; Z88.0 Allergy status to penicillin; Z88.8 Allergy status to other drugs, medicaments and biological substances; Z91.048 Other nonmedicinal substance allergy status; Z91.09 Other allergy status, other than to drugs and biological substances
CPT/HCPCS: 52310; 50432; 80053; 85025 ×2; 85610; 85730; C2625; C1769 ×4; C1758; C1729 ×2; J2250 ×2; J1200; J1100; J2405; J2001; J3010; J0744; J1170 ×2; J0330; J2704; 76942

== ENCOUNTER 2018-12-28 10:27 | Day surgery (SDC) | payer MEDICARE ==
[2018-12-26 09:39] VITALS: BMI 24.4
[~2018-12-28 10:27] MED LIST changes: -CIPROFLOXACIN/DEXTROSE PMX 400 MG in DEXTROSE/WATER 1 200ML.BAG IVPB ONE; -DEXAMETHASONE SOD PHOSPHATE 10 MG/ML 1 ML VIAL IV ONE; +LEVOFLOXACIN 500MG-D5W PMX 500 MG in DEXTROSE/WATER 1 100ML.BAG IVPB ONE; -MIDAZOLAM 2 MG/2 ML VIAL IV PRN; -ONDANSETRON 4 MG/2 ML VIAL IVP ONE; -fentaNYL (PF) 50 MCG/ML 2 ML AMP IV PRN
[2018-12-28 11:09] VITALS: RESP 16; TEMP 98.4
[2018-12-28] MEDS ORDERED: SODIUM CHLORIDE 0.9% 500 ML 500 ML IV ONE (11:13)
[2018-12-28] MEDS ORDERED: diphenhydrAMINE 50 MG/ML 1 ML VIAL IVP ONE (12:47)
[2018-12-28] MEDS ORDERED: methylPREDNISolone SOD SUCCI 125 MG/2 ML VIAL IV ONE (12:48)
[2018-12-28] MEDS ORDERED: fentaNYL (PF) 50 MCG/ML 2 ML AMP IV ONE (12:49)
[2018-12-28] MEDS ORDERED: LIDOCAINE 1% INJ 10MG/ML (20 ML MDV) SQ ONE (12:57)
[2018-12-28] MEDS ORDERED: IOPAMIDOL-250 50ML BTL IV ONE (13:16)
[2018-12-28 14:48] VITALS: BP 138/70; PULSE 70
--- NOTE | 2018-12-31 11:34 | IR ---
Nephrostomy tube exchange, attempted antegrade stent placement HISTORY: Hydronephrosis Patient's indwelling catheter was prepped and draped in a sterile fashion. Lidocaine was used for loc al anesthesia. General hand injection of contrast material was performed. Catheter was cut and remove d over a wire. 9 [place] sheath was advanced over the wire into the renal collecting system. Angled ca theter and angled Glidewire were utilized to attempt to cross the proximal right ureter. Attempts wer e unsuccessful. 8.5 [place] nephrostomy tube was advanced over the wire following removal of the sheath. Catheter was fixed in place. Sterile dressing was placed. Images document the procedure. No immediate complication . Hemostasis achieved. 11.1 minutes fluoroscopy time. 1164 images obtained. 21 minutes conscious sedation time, independent observer was monitoring the patient. IMPRESSION: Status post nephrostomy tube exchange. Unable to obtain antegrade ureteral stent within t he right kidney.
== END 2018-12-28 14:30 | disposition home or self-care (01) ==
LOC: CATHCVL 10:27
PROVIDERS: ATTEND Radiology Diagnostic Radiology
DX: Z43.6 Encounter for attention to other artificial openings of urinary tract (principal); N13.30 Unspecified hydronephrosis; Z88.5 Allergy status to narcotic agent; Z88.0 Allergy status to penicillin; Z88.8 Allergy status to other drugs, medicaments and biological substances; Z91.048 Other nonmedicinal substance allergy status
CPT/HCPCS: 50435; C1729; C1769 ×2; C1894; J1200; J2930; J1956; J2001; J3010; Q9966

== ENCOUNTER 2019-01-04 14:23 | Day surgery (SDC) | payer MEDICARE ==
[2019-01-04 14:37] VITALS: BP 129/65; PULSE 68; RESP 16; TEMP 98.5
== END 2019-01-04 15:06 | disposition home or self-care (01) ==
LOC: RADPROMAIN 14:23
PROVIDERS: ATTEND Radiology Diagnostic Radiology
DX: Z48.03 Encounter for change or removal of drains (principal); Z48.00 Encounter for change or removal of nonsurgical wound dressing

== ENCOUNTER 2019-01-11 15:12 | Day surgery (SDC) | payer MEDICARE ==
[2019-01-11 16:03] VITALS: BP 128/78; PULSE 98; RESP 16; TEMP 97.6
== END 2019-01-11 16:05 | disposition home or self-care (01) ==
LOC: RADPROMAIN 15:12
PROVIDERS: ATTEND Radiology Diagnostic Radiology
DX: Z48.01 Encounter for change or removal of surgical wound dressing (principal)
CPT/HCPCS: 99213

== ENCOUNTER 2019-01-18 15:16 | Day surgery (SDC) | payer MEDICARE ==
[2019-01-18 15:22] VITALS: BP 125/80; PULSE 70; RESP 16; TEMP 97.9
== END 2019-01-18 15:50 | disposition home or self-care (01) ==
LOC: RADPROMAIN 15:16
PROVIDERS: ATTEND Radiology Diagnostic Radiology
DX: Z48.01 Encounter for change or removal of surgical wound dressing (principal)

== ENCOUNTER 2019-01-28 15:05 | Day surgery (SDC) | payer MEDICARE ==
[2019-01-28 16:09] VITALS: BP 140/72; PULSE 82; RESP 14; TEMP 97.8
== END 2019-01-28 16:10 | disposition home or self-care (01) ==
LOC: RADPROMAIN 15:05
PROVIDERS: ATTEND Radiology Diagnostic Radiology
DX: Z48.01 Encounter for change or removal of surgical wound dressing (principal)

== ENCOUNTER 2019-01-29 10:36 | Day surgery (SDC) | payer MEDICARE ==
[2019-01-29 11:26] VITALS: BP 141/70; PULSE 99; RESP 14; TEMP 98.6
== END 2019-01-29 11:10 | disposition home or self-care (01) ==
LOC: RADPROMAIN 10:36
PROVIDERS: ATTEND Family Medicine
DX: Z43.6 Encounter for attention to other artificial openings of urinary tract (principal)
CPT/HCPCS: 99213

== ENCOUNTER 2019-02-04 13:44 | Day surgery (SDC) | payer MEDICARE ==
[2019-02-04 15:37] VITALS: BP 147/65; PULSE 65; RESP 16; TEMP 98.7
== END 2019-02-04 15:35 | disposition home or self-care (01) ==
LOC: RADPROMAIN 13:44
PROVIDERS: ATTEND Family Medicine
DX: Z43.6 Encounter for attention to other artificial openings of urinary tract (principal)
CPT/HCPCS: 99213

== ENCOUNTER 2019-02-11 11:17 | Day surgery (SDC) | payer MEDICARE ==
[2019-02-11 11:57] VITALS: BP 140/62; PULSE 95; RESP 14; TEMP 98
== END 2019-02-11 11:55 | disposition home or self-care (01) ==
LOC: RADPROMAIN 11:17
PROVIDERS: ATTEND Family Medicine
DX: Z48.01 Encounter for change or removal of surgical wound dressing (principal)

== ENCOUNTER 2019-02-18 15:14 | Day surgery (SDC) | payer MEDICARE ==
[2019-02-18 15:50] VITALS: BP 116/73; PULSE 68; RESP 16; TEMP 98.1
== END 2019-02-18 15:55 | disposition home or self-care (01) ==
LOC: RADPROMAIN 15:14
PROVIDERS: ATTEND Family Medicine
DX: Z48.03 Encounter for change or removal of drains (principal)
CPT/HCPCS: 99213

== ENCOUNTER 2019-02-25 15:03 | Day surgery (SDC) | payer MEDICARE ==
[2019-02-25 15:49] VITALS: BP 121/74; PULSE 64; RESP 16; TEMP 98.3
== END 2019-02-25 15:50 | disposition home or self-care (01) ==
LOC: RADPROMAIN 15:03
PROVIDERS: ATTEND Family Medicine
DX: Z43.6 Encounter for attention to other artificial openings of urinary tract (principal); Z48.01 Encounter for change or removal of surgical wound dressing
CPT/HCPCS: 99213

== ENCOUNTER 2019-02-28 14:53 | Day surgery (SDC) | payer MEDICARE ==
[2019-02-28 15:55] VITALS: BP 114/75; PULSE 75; RESP 16; TEMP 98.5
== END 2019-02-28 15:50 | disposition home or self-care (01) ==
LOC: RADPROMAIN 14:53
PROVIDERS: ATTEND Family Medicine
DX: Z48.01 Encounter for change or removal of surgical wound dressing (principal); Z43.6 Encounter for attention to other artificial openings of urinary tract
CPT/HCPCS: 87077; 87086; 87186

== ENCOUNTER 2019-03-04 09:51 | Day surgery (SDC) | payer MEDICARE ==
[2019-03-04 10:28] VITALS: BP 131/67; PULSE 86; RESP 16; TEMP 98.3
== END 2019-03-04 10:40 | disposition home or self-care (01) ==
LOC: RADPROMAIN 09:51
PROVIDERS: ATTEND Family Medicine
DX: Z43.9 Encounter for attention to unspecified artificial opening (principal); Z48.01 Encounter for change or removal of surgical wound dressing
CPT/HCPCS: 99213

== ENCOUNTER 2019-03-11 15:06 | Day surgery (SDC) | payer MEDICARE ==
[2019-03-11 15:52] VITALS: BP 132/61; PULSE 95; RESP 16; TEMP 98
== END 2019-03-11 15:56 | disposition home or self-care (01) ==
LOC: RADPROMAIN 15:06
PROVIDERS: ATTEND Family Medicine
DX: Z43.9 Encounter for attention to unspecified artificial opening (principal); Z48.01 Encounter for change or removal of surgical wound dressing
CPT/HCPCS: 99213

== ENCOUNTER 2019-03-11 17:07 | Emergency (ER) | payer MEDICARE ==
[2019-03-11] MEDS ORDERED: HYDROmorphone 1 MG/ML 1 ML SYRINGE IVP STA ×2 (17:58→20:58)
[2019-03-11] MEDS ORDERED: SODIUM CHLORIDE 0.9% 1,000 ML IV STA (17:58)
[2019-03-11] MEDS ORDERED: ONDANSETRON 4 MG/2 ML VIAL IVP STA (17:58)
[2019-03-11] MEDS ORDERED: LORazepam 2 MG/ML INJ IV STA (17:58)
--- NOTE | 2019-03-11 18:00 | ED ---
Recheck HPI - General Chief Complaint: Recheck/Abnormal Lab/Rx Stated Complaint: PAIN AND WEAKNESS FOLLOWING CHEMO Time Seen by Provider: 03/11/19 17:31 Source: patient, RN notes reviewed, old records reviewed Mode of arrival: wheelchair Limitations: no limitations - History of Present Illness Initial Comments: This is a 63-year-old female the ER for evaluation of recheck lab values. Patient has history of lower left leg nose. Patient states she hasn't been feeling well lately she is going to chemotherapy for ovarian cancer patient's very emotional questioning, states she has not been feeling well as of late but denying any fevers. No nausea vomiting or diarrhea she's had pain pain in both her legs which is chronic. Patient concern for abnormal electrolytes MD Complaint: abnormal lab -: unknown Returns Today for: Called Because of Abnormal Lab/Test (Patient has had abnormal magnesium and potassium) Symptoms Since Prior Visit: worsening pain (Bilateral lower extremities which is chronic) Associated Symptoms: none - Related Data Home Medications Medication Instructions Recorded Confirmed Diltiazem HCl [Diltiazem 24Hr ER] 120 mg PO QAM 08/25/14 03/11/19 Gabapentin [Neurontin] 300 mg PO TID 10/17/17 03/11/19 Esomeprazole Magnesium [NexIUM] 20 mg PO QAM 07/12/18 03/11/19 Zolpidem [Ambien] 5 mg PO HS 09/14/18 03/11/19 Hydrocodone/Acetaminophen [[place] 1 tab PO QID PRN 10/04/18 03/11/19 5-325] Escitalopram [Lexapro] 20 mg PO QAM 12/19/18 03/11/19 Allergies Allergy/AdvReac Type Severity Reaction Status Date / Time adhesive Allergy Rash/Hives Verified 03/11/19 17:58 carboplatin Allergy Anaphylaxis Verified 03/11/19 17:58 iodine Allergy Rash/Hives Verified 03/11/19 17:58 Penicillins Allergy Rash/Hives Verified 03/11/19 17:58 codeine AdvReac Nausea & Verified 03/11/19 17:58 Vomiting morphine AdvReac Nausea & Verified 03/11/19 17:58 Vomiting Review of Systems ROS Statement: Those systems with pertinent positive or pertinent negative responses have been documented in the HPI. ROS Other: All systems not noted in ROS Statement are negative. Past Medical History Past Medical History: Cancer Additional Past Medical History / Comment(s): Current UTI with antibiotics. Admitted to [facility] on 11/23/18 with R flank/abdominal pain/R hydronephrosis, R ureteral obstruction. Hx Ovarian Cancer in 2005 with surgery/chemo. Cancer 08/2017 with abdominal mets, currently receiving chemo. Hx anemia secondary to chemotherapy. Obstructive uropathy r/t tumor mass in R ureter. Recurrent admissions for UTI/SBO/Ureteral obstruction in 2017, R polynephritis, R leg DVT 2014, bilateral TMJ with surgery/pins, IBS. Has CPAP machine. History of Any Multi-Drug Resistant Organisms: VRE Date of last positivie culture/infection: 01/26/18 MDRO Source:: urine Past Surgical History: Hysterectomy Additional Past Surgical History / Comment(s): Bilateral oopherec shereen/hysterectomy, 2 open exploratory abdominal surgery, R chest mediport placed 2011, bilateral retrograde pyelogram cystoscopy with R ureter stent and stent exchanges, jaws have pins d/t surgery for TMJ, colonoscopy. left nephrosotomy tube placement 12/21. Past Anesthesia/Blood Transfusion Reactions: No Reported Reaction Additional Past Anesthesia/Blood Transfusion Reaction / Comment(s): Pt has received blood in past without reaction. Date of Last Stent Placement:: 2011 Past Psychological History: Anxiety, Depression Smoking Status: Never smoker Past Alcohol Use History: None Reported Past Drug Use History: None Reported - Past Family History Mother Family Medical History: Cancer, Diabetes Mellitus Brother(s) Family Medical History: Cancer Additional Family Medical History / Comment(s): Lung cancer- since passed. Sister(s) Family Medical History: CVA/TIA Father Family Medical History: Dementia, Neurologic Disorder Additional Family Medical History / Comment(s): Alzheimer's. General Exam Limitations: no limitations General appearance: alert, in no apparent distress Head exam: Present: atraumatic, normocephalic, normal inspection Eye exam: Present: normal appearance, PERRL, EOMI. Absent: scleral icterus, conjunctival injection, periorbital swelling ENT exam: Present: normal exam, mucous membranes moist Neck exam: Present: normal inspection. Absent: tenderness, meningismus, lymphadenopathy Respiratory exam: Present: normal lung sounds bilaterally. Absent: respiratory distress, wheezes, rales, rhonchi, stridor Cardiovascular Exam: Present: regular rate, normal rhythm, normal heart sounds. Absent: systolic murmur, diastolic murmur, rubs, gallop, clicks GI/Abdominal exam: Present: soft, normal bowel sounds. Absent: distended, tenderness, guarding, rebound, rigid Extremities exam: Present: normal inspection, full ROM, normal capillary refill. Absent: tenderness, pedal edema, joint swelling, calf tenderness Back exam: Present: normal inspection Neurological exam: Present: alert, oriented X3, CN II-XII intact Psychiatric exam: Present: normal affect, normal mood Skin exam: Present: warm, dry, intact, normal color. Absent: rash Course Vital Signs 03/11/19 17:23 Temperature 98.2 F Pulse Rate 103 H Respiratory 18 Rate Blood Pressure 118/72 O2 Sat by Pulse 98 Oximetry - Reevaluation(s) Reevaluation #1: 03/11/19 18:00 Medical records reviewed Reevaluation #2: 03/11/19 20:36 Patient's magnesium will be replaced to being mildly low, patient still feeling weak but no cause found Reevaluation #3: 03/11/19 20:37 does feel okay for discharge Medical Decision Making - Medical Decision Making 63 female the ER for evaluation. Patient resents today for evaluation of what she believes is abnormal loculates. Magnesium is mildly low we will replace patient's magnesium and patient can be discharged - Lab Data Result diagrams: 03/11/19 17:45 03/11/19 17:45 Lab Results 03/11/19 03/11/19 Range/Units 17:45 17:45 WBC 3.2 L (3.8-10.6) k/uL RBC 3.59 L (3.80-5.40) m/uL Hgb 11.2 L (11.4-16.0) gm/dL Hct 32.5 L (34.0-46.0) % MCV 90.6 (80.0-100.0) fL MCH 31.1 (25.0-35.0) pg MCHC 34.4 (31.0-37.0) g/dL RDW 14.0 (11.5-15.5) % Plt Count 152 (150-450) k/uL Neutrophils % 48 % Lymphocytes % 43 % Monocytes % 2 % Eosinophils % 3 % Basophils % 1 % Neutrophils # 1.5 (1.3-7.7) k/uL Lymphocytes # 1.4 (1.0-4.8) k/uL Monocytes # 0.1 (0-1.0) k/uL Eosinophils # 0.1 (0-0.7) k/uL Basophils # 0.0 (0-0.2) k/uL Sodium 138 (137-145) mmol/L Potassium 4.5 (3.5-5.1) mmol/L Chloride 107 (98-107) mmol/L Carbon Dioxide 21 L (22-30) mmol/L Anion Gap 10 mmol/L BUN 27 H (7-17) mg/dL Creatinine 1.06 H (0.52-1.04) mg/dL Est GFR (CKD-EPI)AfAm 64 (>60 ml/min/1.73 sqM) Est GFR (CKD-EPI)NonAf 55 (>60 ml/min/1.73 sqM) Glucose 122 H (74-99) mg/dL Calcium 9.0 (8.4-10.2) mg/dL Phosphorus 3.4 (2.5-4.5) mg/dL Magnesium 1.5 L (1.6-2.3) mg/dL Total Bilirubin 0.2 (0.2-1.3) mg/dL AST 26 (14-36) U/L ALT 17 (9-52) U/L Alkaline Phosphatase 61 (38-126) U/L Creatine Kinase 25 L (30-135) U/L Total Protein 7.2 (6.3-8.2) g/dL Albumin 4.0 (3.5-5.0) g/dL Disposition Clinical Impression: Nausea, Weakness, Hypomagnesemia Disposition: HOME SELF-CARE Condition: Good Instructions (If sedation given, give patient instructions): Weakness (ED) Is patient prescribed a controlled substance at d/c from ED?: No Referrals: Kevin Metzger MD [Primary Care Provider] - 1-2 days
[2019-03-11 19:09] LABS: Magnesium 1.5 mg/dL (1.6-2.3); Phosphorus 3.4 mg/dL (2.5-4.5); Potassium 4.5 mmol/L (3.5-5.1); Total Bilirubin 0.2 mg/dL (0.2-1.3); Total Protein 7.2 g/dL (6.3-8.2)
[2019-03-11 19:11] LABS: Basophils % (A) 1 %; Eosinophils # (A) 0.1 k/uL (0-0.7); Eosinophils % (A) 3 %; HCT 32.5 % (34.0-46.0); HGB 11.2 gm/dL (11.4-16.0); Lymphocytes # (A) 1.4 k/uL (1.0-4.8); Lymphocytes % (A) 43 %; MCH 31.1 pg (25.0-35.0); MCHC 34.4 g/dL (31.0-37.0); MCV 90.6 fL (80.0-100.0); Mean Platelet Volume 7.5; Monocytes # (A) 0.1 k/uL (0-1.0); Monocytes % (A) 2 %; Neutrophils # (A) 1.5 k/uL (1.3-7.7); Neutrophils % (A) 48 %; Platelet Count 152 k/uL (150-450); RBC 3.59 m/uL (3.80-5.40); WBC 3.2 k/uL (3.8-10.6)
[2019-03-11] MEDS ORDERED: MAGNESIUM SULFATE-D5W PMX 1 GM in DEXTROSE/WATER 1 100ML.BAG IVPB ONE (19:30)
[2019-03-11] MEDS ORDERED: MAGNESIUM OXIDE 400 MG TAB PO STA (19:30)
[2019-03-11 22:14] VITALS: BP 128/70; PULSE 74; RESP 18; TEMP 98
== END 2019-03-11 22:21 | disposition home or self-care (01) ==
LOC: EC 17:07
DX: E83.42 Hypomagnesemia (principal); M79.604 Pain in right leg; M79.605 Pain in left leg; F41.9 Anxiety disorder, unspecified; F32.9 Major depressive disorder, single episode, unspecified; Z85.43 Personal history of malignant neoplasm of ovary; Z92.21 Personal history of antineoplastic chemotherapy; Z86.2 Personal history of diseases of the blood and blood-forming organs and certain disorders involving the immune mechanism; Z90.710 Acquired absence of both cervix and uterus; Z79.899 Other long term (current) drug therapy; Z91.048 Other nonmedicinal substance allergy status; Z88.8 Allergy status to other drugs, medicaments and biological substances; Z88.0 Allergy status to penicillin; Z88.5 Allergy status to narcotic agent
CPT/HCPCS: 36415; 80053; 82550; 83735; 84100; 85025; 99285; 96365; 96375 ×3; 96376; 96361 ×3; J2060; J2405; J1170; J3475

== ENCOUNTER 2019-03-20 22:32 | Inpatient (IN) | payer MEDICARE ==
[2019-03-20] MEDS ORDERED: SODIUM CHLORIDE 0.9% 500 ML 500 ML IV STA (22:56)
[2019-03-20] MEDS ORDERED: HYDROmorphone 1 MG/ML 1 ML SYRINGE IVP STA (22:56)
[2019-03-20 23:27] LABS: HCT 31.2 % (34.0-46.0); HGB 10.2 gm/dL (11.4-16.0); MCH 30.2 pg (25.0-35.0); MCHC 32.8 g/dL (31.0-37.0); Mean Platelet Volume 7.2; Platelet Count 156 k/uL (150-450); RBC 3.39 m/uL (3.80-5.40); RDW 15.4 % (11.5-15.5); WBC 2.5 k/uL (3.8-10.6)
[2019-03-20 23:35] LABS: Albumin 3.7 g/dL (3.5-5.0); Calcium 9.3 mg/dL (8.4-10.2); Magnesium 1.1 mg/dL (1.6-2.3); Total Bilirubin 0.2 mg/dL (0.2-1.3); Total Protein 6.8 g/dL (6.3-8.2)
[2019-03-20 23:40] LABS: Appearance,Urine Clear (Clear); Bilirubin,Urine Negative (Negative); Blood,Urine Negative (Negative); Glucose,Urine (UA) Negative (Negative); Ketones,Urine Negative (Negative); Leukocyte Esterase,Urine Negative (Negative); Nitrite,Urine Negative (Negative); Protein,Urine Trace (Negative); Specific Gravity,Urine 1.022 (1.001-1.035); Urobilinogen,Urine <2.0 mg/dL (<2.0)
[2019-03-20] MEDS ORDERED: FAMOTIDINE 20 MG/2 ML VIAL IV STA (23:41)
[2019-03-20] MEDS ORDERED: diphenhydrAMINE 50 MG/ML 1 ML VIAL IVP STA (23:41)
[2019-03-20] MEDS ORDERED: methylPREDNISolone SOD SUCCI 125 MG/2 ML VIAL IV STA (23:41)
[2019-03-20 23:42] LABS: INR 0.9 (<1.2); Partial Thromboplastin Time 22.5 sec (22.0-30.0); Prothrombin Time 10.1 sec (9.0-12.0)
[2019-03-20 23:50] LABS: Appearance,Urine Cloudy (Clear); Bilirubin,Urine Negative (Negative); Blood,Urine Moderate (Negative); Glucose,Urine (UA) Negative (Negative); Hyaline Casts,Urine 1 /lpf (0-2); Ketones,Urine Negative (Negative); Leukocyte Esterase,Urine Small (Negative); Mucus,Urine Rare /hpf; Nitrite,Urine Negative (Negative); Protein,Urine 3+ (Negative); RBC,Urine >182 /hpf (0-5); Specific Gravity,Urine 1.018 (1.001-1.035); Squamous Epithelial Cell,Urine <1 /hpf (0-4); Urobilinogen,Urine <2.0 mg/dL (<2.0)
[2019-03-20 23:55] LABS: Color,Urine Yellow
[2019-03-21 00:14] LABS: Basophils # (M) 0.03 k/uL (0-0.2); Eosinophils # (M) 0.08 k/uL (0-0.7); Lymphocytes # (M) 1.13 k/uL (1.0-4.8); Monocytes # (M) 0.33 k/uL (0-1.0); Neutrophils # (M) 0.98 k/uL (1.3-7.7); Neutrophils % (M) 39 %; Nucleated Red Blood Cells 0 /100 WBC (0-0); Reactive Lymphocytes Present; Total Cells Counted 200
[2019-03-21] MEDS: MAGNESIUM SULFATE-D5W PMX 1 GM in DEXTROSE/WATER 1 100ML.BAG IVPB SCH ×2 (00:17→01:28)
--- NOTE | 2019-03-21 00:47 | CT ---
EXAMINATION TYPE: CT abdomen pelvis w con DATE OF EXAM: 03/21/2019 COMPARISON: 10/01/2018 HISTORY: Patient presents with right sided flank pain. CT DLP: 856.2 mGycm Automated exposure control for dose reduction was used. TECHNIQUE: Helical acquisition of images was performed from the lung bases through the pelvis. CONTRAST: Performed without Oral Contrast and with IV Contrast, patient injected with 80mL mL of Isovue 300. FINDINGS: Lung bases are clear. There is no pleural effusion. Heart size is normal. There is no pericardial eff usion. There are clips from cholecystectomy. Liver shows no focal defect. Spleen appears normal. There is no pancreatic mass. The bile ducts within the liver appear normal. The common bile duct measures 1.3 cm . There is no evidence of pancreatic mass. Stomach appears normal. There is no adrenal mass. There is right side nephrostomy tube noted. Catheter appears in good positi on in the right renal pelvis. There is no hydronephrosis. There is normal contrast opacification of t he kidneys. There is no retroperitoneal adenopathy. There is enlarged right ureter proximally. Bladder distends smoothly. There are surgical clips in the pelvis. There is hysterectomy. Appendix is not definitely seen. There is no sign of thickened appendix. There are multiple retroperitoneal surg ical clips noted. Lumbar vertebra have normal spacing and alignment. There is no compression fracture. Bony pelvis is i ntact. IMPRESSION: THERE IS RIGHT-SIDED NEPHROSTOMY TUBE IN GOOD POSITION. THERE HAS BEEN REMOVAL OF THE RIGHT URETERAL STENT COMPARED TO OLD EXAM. THERE IS NO SIGNIFICANT HYDRONEPHROSIS. NO EVIDENCE OF A RENAL MASS. I SE E NO SIGN OF A RENAL ABSCESS. RIGHT RENAL PELVIS NOT CHANGED IN SIZE COMPARED TO OLD EXAM.
--- NOTE | 2019-03-21 01:05 | ED ---
General Adult HPI - General Chief complaint: Recheck/Abnormal Lab/Rx Stated complaint: post op-fever Time Seen by Provider: 03/20/19 22:47 Source: patient, RN notes reviewed Mode of arrival: ambulatory Limitations: no limitations - History of Present Illness Initial comments: Patient is a pleasant 63-year-old female presenting to the emergency department with fever and back pain. Patient had her nephrostomy tube change earlier today. Patient has had increasing discomfort since that time. Patient did develop fever prior to arrival. Patient has known colon cancer with a mass that is pushing on her ureter. Patient states this is the reason that the nephrostomy tube was placed. Patient denies any upper respiratory symptoms. No abdominal pain. Patient does still make urine through her urethra as well. Patient is on chemotherapy, last dose was under 2 weeks ago. - Related Data Home Medications Medication Instructions Recorded Confirmed Diltiazem HCl [Diltiazem 24Hr ER] 120 mg PO QAM 08/25/14 03/20/19 Gabapentin [Neurontin] 300 mg PO QAM 10/17/17 03/20/19 Esomeprazole Magnesium [NexIUM] 20 mg PO QAM 07/12/18 03/20/19 Zolpidem [Ambien] 5 mg PO HS 09/14/18 03/20/19 Hydrocodone/Acetaminophen [[place] 1 tab PO QID PRN 10/04/18 03/20/19 5-325] Escitalopram [Lexapro] 20 mg PO QAM 12/19/18 03/20/19 Folic Acid 0.4 mg PO DAILY 03/18/19 03/20/19 Gabapentin 600 mg PO HS 03/18/19 03/20/19 Magnesium 400 mg PO BID 03/18/19 03/20/19 Multivitamins, Thera [Multivitamin 1 tab PO DAILY 03/18/19 03/20/19 (formulary)] Allergies Allergy/AdvReac Type Severity Reaction Status Date / Time adhesive Allergy Rash/Hives Verified 03/20/19 22:43 carboplatin Allergy Anaphylaxis Verified 03/20/19 22:43 iodine Allergy Rash/Hives Verified 03/20/19 22:43 Penicillins Allergy Rash/Hives Verified 03/20/19 22:43 codeine AdvReac Nausea & Verified 03/20/19 22:43 Vomiting morphine AdvReac Nausea & Verified 03/20/19 22:43 Vomiting Review of Systems ROS Statement: Those systems with pertinent positive or pertinent negative responses have been documented in the HPI. ROS Other: All systems not noted in ROS Statement are negative. Constitutional: Reports: fever, chills Eyes: Denies: eye pain ENT: Denies: ear pain Respiratory: Denies: cough Cardiovascular: Denies: chest pain Endocrine: Reports: fatigue Gastrointestinal: Denies: abdominal pain Genitourinary: Denies: frequency Musculoskeletal: Reports: as per HPI, back pain Skin: Denies: rash Neurological: Denies: weakness Past Medical History Past Medical History: Cancer Additional Past Medical History / Comment(s): ovarian cancer History of Any Multi-Drug Resistant Organisms: VRE Date of last positivie culture/infection: 01/26/18 MDRO Source:: urine Past Surgical History: Hysterectomy Additional Past Surgical History / Comment(s): Bilateral ooph erectomy/hysterectomy, 2 open exploratory abdominal surgery, R chest mediport placed 2011, bilateral retrograde pyelogram cystoscopy with R ureter stent and stent exchanges, jaws have pins d/t surgery for TMJ, colonoscopy. left nephrosotomy tube placement 12/21. Past Anesthesia/Blood Transfusion Reactions: No Reported Reaction Additional Past Anesthesia/Blood Transfusion Reaction / Comment(s): Pt has received blood in past without reaction. Date of Last Stent Placement:: 2011 Past Psychological History: Anxiety, Depression Smoking Status: Never smoker Past Alcohol Use History: None Reported Past Drug Use History: None Reported - Past Family History Mother Family Medical History: Cancer, Diabetes Mellitus Brother(s) Family Medical History: Cancer Additional Family Medical History / Comment(s): Lung cancer- since passed. Sister(s) Family Medical History: CVA/TIA Father Family Medical History: Dementia, Neurologic Disorder Additional Family Medical History / Comment(s): Alzheimer's. General Exam Limitations: no limitations General appearance: alert, in no apparent distress Head exam: Present: normocephalic Eye exam: Present: normal appearance Neck exam: Present: normal inspection Respiratory exam: Present: normal lung sounds bilaterally Cardiovascular Exam: Present: regular rate, normal rhythm GI/Abdominal exam: Present: soft. Absent: tenderness Extremities exam: Present: normal inspection Back exam: Present: other (Nephrostomy tube right CVA region. No significant erythema. There is diffuse tenderness. No purulent discharge.) Neurological exam: Present: alert Psychiatric exam: Present: normal affect, normal mood Skin exam: Present: normal color. Absent: rash Course Vital Signs 03/20/19 22:41 Temperature 101.0 F H Pulse Rate 99 Respiratory 18 Rate Blood Pressure 117/50 O2 Sat by Pulse 97 Oximetry - Reevaluation(s) Reevaluation #1: 03/21/19 01:04 Patient does meet sepsis criteria diagnosed at 1 AM. Blood culture and lactic acid and IV antibiotics have all been ordered. Medical Decision Making - Medical Decision Making 2 urinalysis are done. First one from the urostomy tube does show 27 white cells and greater than 180 red cells. There is small leukocyte esterase. Urina lysis. Through the urethra is not significant. Case was discussed in detail with Dr. Arnold who suggests patient may have become bacteremic from the nephrostomy tube exchange. He does recommend Rocephin. He does not feel the need to be placed on consult unless things change or patient worsens. Case was also discussed in detail with Dr. Metzger who is familiar with this patient and will admit. Patient reevaluated and updated. - Lab Data Result diagrams: 03/20/19 23:05 03/20/19 23:05 Lab Results 03/20/19 03/20/19 03/20/19 Range/Units 23:05 23:05 23:05 WBC 2.5 L (3.8-10.6) k/uL RBC 3.39 L (3.80-5.40) m/uL Hgb 10.2 L (11.4-16.0) gm/dL Hct 31.2 L (34.0-46.0) % MCV 92.0 (80.0-100.0) fL MCH 30.2 (25.0-35.0) pg MCHC 32.8 (31.0-37.0) g/dL RDW 15.4 (11.5-15.5) % Plt Count 156 (150-450) k/uL Neutrophils % (Manual) 39 % Lymphocytes % (Manual) 45 % Monocytes % (Manual) 13 % Eosinophils % (Manual) 3 % Basophils % (Manual) 1 % Neutrophils # (Manual) 0.98 L (1.3-7.7) k/uL Lymphocytes # (Manual) 1.13 (1.0-4.8) k/uL Monocytes # (Manual) 0.33 (0-1.0) k/uL Eosinophils # (Manual) 0.08 (0-0.7) k/uL Basophils # (Manual) 0.03 (0-0.2) k/uL Nucleated RBCs 0 (0-0) /100 WBC Manual Slide Review Performed Reactive Lymphocytes Present PT 10.1 (9.0-12.0) sec INR 0.9 (<1.2) APTT 22.5 (22.0-30.0) sec Sodium 139 (137-145) mmol/L Potassium 4.0 (3.5-5.1) mmol/L Chloride 106 (98-107) mmol/L Carbon Dioxide 26 (22-30) mmol/L Anion Gap 7 mmol/L BUN 17 (7-17) mg/dL Creatinine 1.09 H (0.52-1.04) mg/dL Est GFR (CKD-EPI)AfAm 62 (>60 ml/min/1.73 sqM) Est GFR (CKD-EPI)NonAf 54 (>60 ml/min/1.73 sqM) Glucose 101 H (74-99) mg/dL Calcium 9.3 (8.4-10.2) mg/dL Magnesium 1.1 L (1.6-2.3) mg/dL Total Bilirubin 0.2 (0.2-1.3) mg/dL AST 25 (14-36) U/L ALT 23 (9-52) U/L Alkaline Phosphatase 60 (38-126) U/L Total Protein 6.8 (6.3-8.2) g/dL Albumin 3.7 (3.5-5.0) g/dL Amylase 58 (30-110) U/L Lipase 69 (23-300) U/L Urine Color Urine Appearance (Clear) Urine pH (5.0-8.0) Ur Specific [place] (1.001-1.035) Urine Protein (Negative) Urine Glucose (UA) (Negative) Urine Ketones (Negative) Urine Blood (Negative) Urine Nitrite (Negative) Urine Bilirubin (Negative) Urine Urobilinogen (<2.0) mg/dL Ur Leukocyte Esterase (Negative) Urine RBC (0-5) /hpf Urine WBC (0-5) /hpf Ur Squamous Epith Cells (0-4) /hpf Hyaline Casts (0-2) /lpf Urine Mucus (None) /hpf 03/20/19 03/20/19 Range/Units 23:24 23:24 WBC (3.8-10.6) k/uL RBC (3.80-5.40) m/uL Hgb (11.4-16.0) gm/dL Hct (34.0-46.0) % MCV (80.0-100.0) fL MCH (25.0-35.0) pg MCHC (31.0-37.0) g/dL RDW (11.5-15.5) % Plt Count (150-450) k/uL Neutrophils % (Manual) % Lymphocytes % (Manual) % Monocytes % (Manual) % Eosinophils % (Manual) % Basophils % (Manual) % Neutrophils # (Manual) (1.3-7.7) k/uL Lymphocytes # (Manual) (1.0-4.8) k/uL Monocytes # (Manual) (0-1.0) k/uL Eosinophils # (Manual) (0-0.7) k/uL Basophils # (Manual) (0-0.2) k/uL Nucleated RBCs (0-0) /100 WBC Manual Slide Review Reactive Lymphocytes PT (9.0-12.0) sec INR (<1.2) APTT (22.0-30.0) sec Sodium (137-145) mmol/L Potassium (3.5-5.1) mmol/L Chloride (98-107) mmol/L Carbon Dioxide (22-30) mmol/L Anion Gap mmol/L BUN (7-17) mg/dL Creatinine (0.52-1.04) mg/dL Est GFR (CKD-EPI)AfAm (>60 ml/min/1.73 sqM) Est GFR (CKD-EPI)NonAf (>60 ml/min/1.73 sqM) Glucose (74-99) mg/dL Calcium (8.4-10.2) mg/dL Magnesium (1.6-2.3) mg/dL Total Bilirubin (0.2-1.3) mg/dL AST (14-36) U/L ALT (9-52) U/L Alkaline Phosphatase (38-126) U/L Total Protein (6.3-8.2) g/dL Albumin (3.5-5.0) g/dL Amylase (30-110) U/L Lipase (23-300) U/L Urine Color Yellow Yellow Urine Appearance Clear Cloudy H (Clear) Urine pH 5.0 6.0 (5.0-8.0) Ur Specific [place] 1.022 1.018 (1.001-1.035) Urine Protein Trace H 3+ H (Negative) Urine Glucose (UA) Negative Negative (Negative) Urine Ketones Negative Negative (Negative) Urine Blood Negative Moderate H (Negative) Urine Nitrite Negative Negative (Negative) Urine Bilirubin Negative Negative (Negative) Urine Urobilinogen <2.0 <2.0 (<2.0) mg/dL Ur Leukocyte Esterase Negative Small H (Negative) Urine RBC >182 H (0-5) /hpf Urine WBC 27 H (0-5) /hpf Ur Squamous Epith Cells <1 (0-4) /hpf Hyaline Casts 1 (0-2) /lpf Urine Mucus Rare H (None) /hpf Critical Care Time Critical Care Time: Yes Total Critical Care Time: 32 Disposition Clinical Impression: Sepsis, Hypomagnesemia Disposition: ADMITTED IP TO THIS HOSP Is patient prescribed a controlled substance at d/c from ED?: No Referrals: Kevin Metzger MD [Primary Care Provider] - 1-2 days Decision Time: 01:05
[2019-03-21] MEDS ORDERED: NALOXONE 0.4 MG/ML 1 ML VIAL IV PRN (01:06)
[2019-03-21] MEDS: HYDROmorphone 1 MG/ML 1 ML SYRINGE IVP PRN ×7 (01:32→22:30)
[2019-03-21] MEDS: MAGNESIUM OXIDE 400 MG TAB PO SCH ×4 (01:32→20:58)
--- NOTE | 2019-03-21 01:32 | XR ---
EXAMINATION TYPE: XR chest 2V DATE OF EXAM: 03/21/2019 COMPARISON: December 14, 2018 HISTORY: Fever TECHNIQUE: Frontal and lateral views of the chest are obtained. FINDINGS: There is right central venous catheter with tip in the superior vena cava. There is slight fullness at the left pulmonary hilum. Heart size is normal. There is no heart failure. Lungs are karley ar of consolidation. Bony thorax is intact. There is no pleural effusion. IMPRESSION: There is evidence for some adenopathy at the left pulmonary hilum and aortopulmonary win reji that is new or increased compared to last exam. Normal heart. No evidence of bronchopneumonia.
[2019-03-21] MEDS: SODIUM CHLORIDE 0.9% 1,000 ML IV SCH ×4 (02:55→23:32)
[2019-03-21 03:20] VITALS: BMI 23.8
[2019-03-21 07:27] LABS: Basophils % (A) 1 %; Eosinophils % (A) 0 %; HCT 30.2 % (34.0-46.0); HGB 9.7 gm/dL (11.4-16.0); Lymphocytes # (A) 0.5 k/uL (1.0-4.8); Lymphocytes % (A) 24 %; MCH 29.9 pg (25.0-35.0); MCHC 32.3 g/dL (31.0-37.0); MCV 92.8 fL (80.0-100.0); Mean Platelet Volume 7.6; Monocytes # (A) 0.1 k/uL (0-1.0); Monocytes % (A) 4 %; Neutrophils # (A) 1.5 k/uL (1.3-7.7); Neutrophils % (A) 70 %; Platelet Count 143 k/uL (150-450); RBC 3.26 m/uL (3.80-5.40); RDW 15.4 % (11.5-15.5); WBC 2.1 k/uL (3.8-10.6)
[2019-03-21 07:38] LABS: Calcium 9.2 mg/dL (8.4-10.2); Potassium 3.9 mmol/L (3.5-5.1)
[2019-03-21] MEDS: ONDANSETRON 4 MG/2 ML VIAL IVP PRN ×2 (08:22→15:31)
[2019-03-21] MEDS ORDERED: HYDROcodone/APAP 5-325MG 1 EACH TAB PO PRN (10:37)
--- NOTE | 2019-03-21 19:38 | HP ---
HISTORY AND PHYSICAL CHIEF COMPLAINT: Right flank pain, fever, chills. HISTORY OF PRESENT ILLNESS: This is another admission for this 63-year-old white female with progressing ovarian carcinoma and right ureteral obstruction. She had her ureterostomy stent replaced yesterday and went home and immediately developed severe right flank pain with fever and chills. She came to the emergency room where she was admitted for IV fluids, antibiotics and correction of whatever was going on with her ureterostomy. REVIEW OF SYSTEMS: She has had no chest pain, shortness of breath, abdominal pain, vomiting, etc. Past medical history, family history, personal and social histories are all otherwise unremarkable and unchanged. PHYSICAL EXAMINATION: Blood pressure is 132/80 with a pulse of 77, respirations of 33. She is afebrile. In general, she looks pale, chronically ill, uncomfortable. Head, ears, eyes, nose, mouth, and throat were normal. Chest is clear to auscultation. Cardiac exam is normal. There was a ureterostomy tube in the right flank and the abdomen was slightly uncomfortable in the right upper quadrant. Extremities: Normal and neurologically she is intact. IMPRESSION: She is admitted to the hospital with diagnoses: 1. Right flank pain following ureterostomy stent change. 2. Possible sepsis from nondraining ureterostomy tube. PLAN: Interventional Radiology will look at the system. Seems to be leaking it with the tube goes into the collection bag, which where there is probably some type of obstruction creating a back pressure. MMODL / IJN: [id number] /
[2019-03-21] MEDS: diphenhydrAMINE 50 MG CAP PO PRN (20:57)
[2019-03-21] MEDS ORDERED: ZOLPIDEM 5 MG TAB PO PRN (21:00)
[2019-03-21] MEDS ORDERED: GABAPENTIN 300 MG CAP PO SCH (21:00)
[2019-03-21] MEDS ORDERED: MAGNESIUM 400 MG PO SCH (21:00)
[2019-03-22] MEDS: HYDROmorphone 1 MG/ML 1 ML SYRINGE IVP PRN ×4 (01:57→13:17)
[2019-03-22] MEDS: SODIUM CHLORIDE 0.9% 1,000 ML IV SCH (05:34)
[2019-03-22] MEDS ORDERED: PANTOPRAZOLE 40 MG TABLET PO SCH (06:30)
[2019-03-22 08:34] VITALS: PULSE 63
[2019-03-22] MEDS ORDERED: ESCITALOPRAM 20 MG TAB PO SCH (09:00)
[2019-03-22] MEDS ORDERED: DILTIAZEM CD 120 MG CAP.ER.24H PO SCH (09:00)
[2019-03-22] MEDS ORDERED: FOLIC ACID 1 MG TAB PO SCH (09:00)
[2019-03-22] MEDS ORDERED: GABAPENTIN 300 MG CAP PO SCH (09:00)
[2019-03-22] MEDS: MAGNESIUM OXIDE 400 MG TAB PO SCH (09:52)
[2019-03-22] MEDS: diphenhydrAMINE 50 MG CAP PO PRN (11:05)
[2019-03-22 14:07] VITALS: BP 117/60; RESP 15; TEMP 99
--- NOTE | 2019-03-22 23:16 | DS ---
DISCHARGE SUMMARY CHIEF COMPLAINT: Right flank pain. HISTORY OF PRESENT ILLNESS AND PHYSICAL EXAM: Details of this lady's history and physical can be found in the initial workup. LABORATORY STUDIES: While she was in the hospital, she had laboratory studies, details of which can be found in the laboratory section of her chart. COURSE IN HOSPITAL: After admission, she was placed on bedrest and started on intravenous fluids and she was seen by Interventional Radiology who determined why she was not draining from her right ureterostomy tube. After this was corrected, the urine flowed freely and her pain disappeared. She was doing well. It was felt she could be discharged on the and she will go home on usual activity, diet and medication. Follow up in the office 2 days. FINAL DIAGNOSES: 1. Right flank pain due to improperly drained right ureterostomy tube. 2. End-stage ovarian carcinoma. OPERATIONS: None. CONSULTATIONS: Interventional Radiology. She is improved. MMODL / ROBERTN: [id number] /
--- NOTE | 2019-03-30 16:57 | CDI ---
Documentation Clarification Form Date: 03/30/19 From: Shanice Jessica Phone: If you have a question about this query, please contact Rima Arriaga, Meat Cutter at [phone] between 8am and 5pm. Admit Date: 03/21/19 Discharge Date: 03/22/19 Patient Name: Jesusita Galloway Visit Number: [id number] ATTENTION: The Clinical Documentation Specialists (CDI) and [facility] Coding Staff appreciate your assistance in clarifying documentation. Please respond to the clarification below the line at the bottom and electronically sign. The CDI & [facility] Coding staff will review the response and follow-up if needed. Please note: Queries are made part of the Legal Health Record. If you have any questions, please contact the author of this message via ITS. Dear Dr. Kevin Metzger, The diagnosis of possible sepsis from nondraining ureterostomy bube was documented in the H&P, but is not noted in subsequent documentation. History/Risk Factors: hx ovarian ca, colon cancer w mass pressing on her ureter, s/p ureterostomy catheter exchange Clinical Indicators: WBC-2.5, Neutrophils-0.98, Lactic acid-0.9, T-101.0, P-99, R-18, BP-117/50, O2 sat- 94 NC, wound culture-Enterococcus faecalis, UA (urostomy): cloudy, protein-3+, blood-moderate, WBC-27 Treatment: IV fluids, IV Rocephin, Please clarify if the patient had sepsis, if so was it due to ureterostomy catheter was Present/active/treated this admission Ruled out sepsis Other, please specify Clinically unable to determine MTDD
--- NOTE | 2019-04-08 11:59 | MISC ---
MISCELLANOUS REPORT QUERY Sepsis was present, active and treated this admission. MMODL / IJN: [id number] /
== END 2019-03-22 15:29 | disposition home or self-care (01) | DRG 698 ==
LOC: EC 22:32 → 4SSUR 03-21 01:07
PROVIDERS: ADMIT Family Medicine; ATTEND Family Medicine
DX: T83.092A Other mechanical complication of nephrostomy catheter, initial encounter (principal); A41.9 Sepsis, unspecified organism; C18.9 Malignant neoplasm of colon, unspecified; E83.42 Hypomagnesemia; N13.5 Crossing vessel and stricture of ureter without hydronephrosis; F32.9 Major depressive disorder, single episode, unspecified; F41.9 Anxiety disorder, unspecified; Z79.899 Other long term (current) drug therapy; Z90.710 Acquired absence of both cervix and uterus; Z90.722 Acquired absence of ovaries, bilateral; Z85.43 Personal history of malignant neoplasm of ovary; Z86.19 Personal history of other infectious and parasitic diseases; Z98.890 Other specified postprocedural states; Z91.041 Radiographic dye allergy status; Z88.5 Allergy status to narcotic agent; Z88.0 Allergy status to penicillin; Z88.8 Allergy status to other drugs, medicaments and biological substances; Z91.048 Other nonmedicinal substance allergy status; Z83.3 Family history of diabetes mellitus; Z80.1 Family history of malignant neoplasm of trachea, bronchus and lung; Z82.0 Family history of epilepsy and other diseases of the nervous system; Z82.3 Family history of stroke
CPT/HCPCS: 36415; 71046; 74177; 80048; 80053; 81001; 81003; 82150; 83605; 83690; 83735; 85025; 85610; 85730; 87040; 87070; 87077; 87086; 87186; 87205; 96365; 96366; 96367; 96375; 96376; 99291

== ENCOUNTER → 2019-03-20 | Day surgery (SDC) | payer MEDICARE ==
[2019-03-18 09:13] VITALS: BMI 23.7
--- NOTE | 2019-03-19 13:25 | P.GSHP ---
History of Present Illness H&P Date: 03/19/19 Chief Complaint: Right hydronephrosis The patient is a 63-year-old female well known to me. She has a history of ovarian cancer which has been present for over 10 years and recurred in the right retroperitoneum and resulted in right hydronephrosis. I initially evaluated her in October 2017 and she underwent placement of a right double-J catheter. She had several enterococcus urinary tract infections over the fall of 2017. [place] [facility] [place] The stent was last exchanged by Dr. Unger in late 07/2018. She had several enterococcus urinary tract infections this spring and received Invanz as antibiotic treatment. Urine culture on 10/09 and again on 10/[address] scan of the abdomen and pelvis on 10/01 showed no evidence of right hydronephrosis and good position of the right double-J catheter. Patient was s een in the office on 10/22 and at that time she was complaining of urinary frequency which had not responded well to Myrbetriq and tamsulosin. She was subsequently hospitalized and ultrasound showed evidence of right hydronephrosis. She underwent right ureteral stent change on November 02, 2018. She was admitted in December 2018 for abdominal pain, right flank pain, nausea, and vomiting. She was treated with IV hydration and parenteral analgesics. Her urine culture was again negative. I reviewed her KUB x-ray, which shows that her stent has migrated distally, leaving the proximal end of the stent within the right proximal ureter. At the time of initial stent placement in October 2017, a retrograde pyelogram indicated that the obstruction was within the right proximal ureter. Attempted replacement of the stent in December 2018 was unsuccessful, and therefore a nephrostomy tube was placed. She now comes for a nephrostomy tube change. - Constitutional Constitutional: Denies chills, Denies fever Past Medical History Past Medical History: Cancer, Deep Vein Thrombosis (DVT), GERD/Reflux, Hypertension, Sleep Apnea/CPAP/BIPAP Additional Past Medical History / Comment(s): Current UTI with antibiotics. Admitted to [facility] on 11/23/18 with R flank/abdominal pain/R hydronephrosis, R ureteral obstruction. Hx Ovarian Cancer in 2005 with surgery/chemo. Cancer 08/2017 with abdominal mets, currently receiving chemo. Hx anemia secondary to chemotherapy. Obstructive uropathy r/t tumor mass in R ureter. Recurrent admissions for UTI/SBO/Ureteral obstruction in 2018, R polynephritis, R leg DVT 2014, bilateral TMJ with surgery/pins, IBS. Has CPAP machine. History of Any Multi-Drug Resistant Organisms: VRE Date of last positivie culture/infection: 01/26/18 MDRO Source:: urine Past Surgical History: Hysterectomy Additional Past Surgical History / Comment(s): Bilateral oopherectomy/hysterectomy, 2 open exploratory abdominal surgery, R chest mediport placed 2011, bilateral retrograde pyelogram cystoscopy with R ureter stent and stent exchanges, jaws have pins d/t surgery for TMJ, colonoscopy. right nephrosotomy tube placement 12/21. Past Anesthesia/Blood Transfusion Reactions: No Reported Reaction Additional Past Anesthesia/Blood Transfusion Reaction / Comment(s): Pt has received blood in past without reaction. Date of Last Stent Placement:: 2011 Smoking Status: Never smoker - Past Family History Mother Family Medical History: Cancer, Diabetes Mellitus Brother(s) Family Medical History: Cancer Additional Family Medical History / Comment(s): Lung cancer- since passed. Sister(s) Family Medical History: CVA/TIA Father Family Medical History: Dementia, Neurologic Disorder Additional Family Medical History / Comment(s): Alzheimer's. Medications and Allergies Home Medications Medication Instructions Recorded Confirmed Type Diltiazem HCl [Diltiazem 24Hr ER] 120 mg PO QAM 08/25/14 03/18/19 History Gabapentin [Neurontin] 300 mg PO QAM 10/17/17 03/18/19 History Esomeprazole Magnesium [NexIUM] 20 mg PO QAM 07/12/18 03/18/19 History Zolpidem [Ambien] 5 mg PO HS 09/14/18 03/18/19 History Hydrocodone/Acetaminophen [[place] 1 tab PO QID PRN 10/04/18 03/18/19 History 5-325] Escitalopram [Lexapro] 20 mg PO QAM 12/19/18 03/18/19 History Folic Acid 0.4 mg PO DAILY 03/18/19 03/18/19 History Gabapentin 600 mg PO HS 03/18/19 03/18/19 History Magnesium 400 mg PO BID 03/18/19 03/18/19 History Multivitamins, Thera [Multivitamin 1 tab PO DAILY 03/18/19 03/18/19 History (formulary)] Allergies Allergy/AdvReac Type Severity Reaction Status Date / Time adhesive Allergy Rash/Hives Verified 03/18/19 08:57 carboplatin Allergy Anaphylaxis Verified 03/18/19 08:57 iodine Allergy Rash/Hives Verified 03/18/19 08:57 Penicillins Allergy Rash/Hives Verified 03/18/19 08:57 codeine AdvReac Nausea & Verified 03/18/19 08:57 Vomiting morphine AdvReac Nausea & Verified 03/18/19 08:57 Vomiting Surgical - Exam - General well developed, well nourished, no distress - Respiratory normal respiratory effort - Abdomen Abdomen: soft, non tender, no guarding, no rigid, no rebound - Psychiatric oriented to time, oriented to person, oriented to place, speech is normal, memory intact Assessment and Plan (1) Hydronephrosis Status: Acute Code(s): N13.30 - UNSPECIFIED HYDRONEPHROSIS SNOMED Code(s): 28055772 Plan: Right nephrostomy tube change. If this is uncomplicated, this will be performed as an outpatient. However, she will remain hospitalized overnight for observation and if warranted.
[~2019-03-20] MED LIST changes: +IOPAMIDOL-370 50ML BTL INJ ONE; +LIDOCAINE 1% INJ 10MG/ML (20 ML MDV) SQ ONE; +MIDAZOLAM 2 MG/2 ML VIAL IV ONE; +SODIUM CHLORIDE 0.9% 1,000 ML in EMPTY BAG 1 BAG IV ONE; +fentaNYL (PF) 50 MCG/ML 2 ML AMP IV ONE
[2019-03-20 07:19] VITALS: RESP 16; TEMP 98.1
--- NOTE | 2019-03-20 09:10 | IR ---
Nephrostomy tube exchange HISTORY: Hydronephrosis, right ureteral obstruction 3.8 minutes fluoroscopy time, 597 intraoperative images. Maximal barrier technique was utilized. Patient's indwelling tube was prepped and draped in sterile f ashion. Lidocaine used for local anesthesia. Under direct fluoroscopic observation, gentle hand injec tion of contrast material performed into the tube. Based on the findings, the tube was cut and exchan ged over a 0.035 inch angled Glidewire. 5 [place] catheter and angled Glidewire utilized to atte mpt ureteral selection without success. Following tube exchange, tube was fixed to the skin with 2-0 silk. Sterile dressing was placed. Catheter attached to gravity drainage. No immediate complication. No bleeding. Patient discharged without incident. FINDINGS: Meniscus is inverted, filling defect noted in the proximal ureter. IMPRESSION: Status post 8.5 [place] nephrostomy tube exchange without incident. Ureteral obstruction o n the right.
[2019-03-20 09:15] VITALS: BP 109/51; PULSE 64
== END | disposition home or self-care (01) ==
LOC: CATHCVL 06:54
PROVIDERS: ATTEND Radiology Diagnostic Radiology
DX: N13.1 Hydronephrosis with ureteral stricture, not elsewhere classified (principal); Z85.43 Personal history of malignant neoplasm of ovary; Z87.440 Personal history of urinary (tract) infections
CPT/HCPCS: 50435; C1729; C1769 ×2; J2250; J1956; J2001; J3010; Q9967

== ENCOUNTER 2019-03-25 09:41 | Day surgery (SDC) | payer MEDICARE ==
[2019-03-25 10:32] VITALS: BP 118/59; PULSE 74; RESP 16; TEMP 98.4
== END 2019-03-25 10:37 | disposition home or self-care (01) ==
LOC: RADPROMAIN 09:41
PROVIDERS: ATTEND Family Medicine
DX: Z43.6 Encounter for attention to other artificial openings of urinary tract (principal); Z48.01 Encounter for change or removal of surgical wound dressing
CPT/HCPCS: 99213

== ENCOUNTER 2019-04-01 14:49 | Day surgery (SDC) | payer MEDICARE ==
[2019-04-01 15:39] VITALS: BP 132/73; PULSE 76; RESP 14; TEMP 98.4
== END 2019-04-01 15:20 | disposition home or self-care (01) ==
LOC: RADPROMAIN 14:49
PROVIDERS: ATTEND Family Medicine
DX: Z48.01 Encounter for change or removal of surgical wound dressing (principal); Z43.9 Encounter for attention to unspecified artificial opening
CPT/HCPCS: 99213

== ENCOUNTER 2019-04-08 14:46 | Day surgery (SDC) | payer MEDICARE ==
[2019-04-08 15:23] VITALS: BP 103/58; PULSE 68; RESP 14; TEMP 98.7
== END 2019-04-08 15:35 | disposition home or self-care (01) ==
LOC: RADPROMAIN 14:46
PROVIDERS: ATTEND Family Medicine
DX: Z43.6 Encounter for attention to other artificial openings of urinary tract (principal); Z48.01 Encounter for change or removal of surgical wound dressing
CPT/HCPCS: 99213

== ENCOUNTER 2019-04-12 14:43 | Day surgery (SDC) | payer MEDICARE ==
[2019-04-12 15:36] VITALS: BP 114/73; PULSE 80; RESP 16; TEMP 97.7
== END 2019-04-12 15:41 | disposition home or self-care (01) ==
LOC: RADPROMAIN 14:43
PROVIDERS: ATTEND Family Medicine
DX: Z43.6 Encounter for attention to other artificial openings of urinary tract (principal); Z48.01 Encounter for change or removal of surgical wound dressing
CPT/HCPCS: 99213

== ENCOUNTER 2019-04-15 09:36 | Day surgery (SDC) | payer MEDICARE ==
[2019-04-15 10:30] VITALS: BP 98/64; PULSE 60; RESP 16; TEMP 98.6
== END 2019-04-15 10:33 | disposition home or self-care (01) ==
LOC: RADPROMAIN 09:36
PROVIDERS: ATTEND Family Medicine
DX: Z48.01 Encounter for change or removal of surgical wound dressing (principal); Z48.03 Encounter for change or removal of drains
CPT/HCPCS: 99213

== ENCOUNTER 2019-04-22 09:38 | Day surgery (SDC) | payer MEDICARE ==
[2019-04-22 10:49] VITALS: BP 121/74; PULSE 91; RESP 16; TEMP 98.1
== END 2019-04-22 10:40 | disposition home or self-care (01) ==
LOC: RADPROMAIN 09:38
PROVIDERS: ATTEND Internal Medicine
DX: Z43.6 Encounter for attention to other artificial openings of urinary tract (principal); Z48.01 Encounter for change or removal of surgical wound dressing
CPT/HCPCS: 99213

== ENCOUNTER → 2019-04-26 | Outpatient (CLI) | payer MEDICARE ==
[2019-04-26 12:50] LABS: Basophils % (A) 1 %; Eosinophils # (A) 0.1 k/uL (0-0.7); Eosinophils % (A) 2 %; HCT 33.6 % (34.0-46.0); Lymphocytes # (A) 1.2 k/uL (1.0-4.8); Lymphocytes % (A) 27 %; MCHC 32.8 g/dL (31.0-37.0); MCV 91.6 fL (80.0-100.0); Mean Platelet Volume 8.7; Monocytes # (A) 0.3 k/uL (0-1.0); Monocytes % (A) 7 %; Neutrophils # (A) 2.8 k/uL (1.3-7.7); Neutrophils % (A) 60 %; Platelet Count 166 k/uL (150-450); RBC 3.67 m/uL (3.80-5.40); RDW 15.3 % (11.5-15.5); WBC 4.6 k/uL (3.8-10.6)
[2019-04-26 19:13] LABS: African American GFR (CKD) 49.9 (60.0-200.0); Albumin 4.5 g/dL (3.80-4.90); Albumin/Globulin Ratio 1.88 (1.60-3.17); Anion Gap 11.4 mmol/L (4.00-12.00); BUN/Creat Ratio 15.38 Ratio (12.00-20.00); Calcium 9.5 mg/dL (8.7-10.3); Carbon Dioxide 25.6 mmol/L (21.6-31.8); Globulin 2.4 g/dL (1.6-3.3); Magnesium 1.3 mg/dL (1.5-2.4); Total Bilirubin 0.3 mg/dL (0.3-1.2); Total Protein 6.9 g/dL (6.2-8.2)
[2019-04-26 19:48] LABS: Cancer Antigen 125 63.1 U/mL (0.0-30.1)
== END | disposition home or self-care (01) ==
LOC: LABWHC1 12:10
PROVIDERS: ATTEND Obstetrics & Gynecology
DX: C56.9 Malignant neoplasm of unspecified ovary (principal)
CPT/HCPCS: 36415; 80053; 83735; 85025; 86304

== ENCOUNTER 2019-04-29 13:45 | Inpatient (IN) | payer MEDICARE ==
[2019-04-29] MEDS ORDERED: SODIUM CHLORIDE 0.9% 1,000 ML IV STA (14:18)
[2019-04-29] MEDS ORDERED: HYDROmorphone 1 MG/ML 1 ML SYRINGE IVP STA ×2 (14:18→17:23)
[2019-04-29] MEDS ORDERED: MAGNESIUM OXIDE 400 MG TAB PO STA (14:19)
--- NOTE | 2019-04-29 14:22 | ED ---
Weakness HPI - General Chief complaint: Weakness Stated complaint: weakness, chemo pt Time Seen by Provider: 04/29/19 13:53 Source: patient, RN notes reviewed, old records reviewed Mode of arrival: wheelchair Limitations: no limitations - History of Present Illness Initial comments: This is a 63-year-old female who presents today for evaluation regards to weakness. Patient admits to going through chemo and having difficulty with her appetite and keeping her magnesium at the normal levels. Patient's issues of pain. Neurologic Ana Maria, first for her. She feels like her magnesium and we will did recently have blood work which showed low magnesium. Patient states these are symptoms that she gets up she feels like her magnesium is low. She has diarrhea but no nausea vomiting. No recent weight loss or weight is actually been gained from arrest to doctor's appointments MD Complaint: generalized weakness, lack of energy -: days(s) Location: generalized Severity: mild Severity scale (1-10): 3 Quality: numbness Consistency: constant Improves with: none Worsens with: none Context: new medication, recent illness Associated Symptoms: denies other symptoms - Related Data Home Medications Medication Instructions Recorded Confirmed Diltiazem HCl [Diltiazem 24Hr ER] 120 mg PO QAM 08/25/14 04/29/19 Gabapentin [Neurontin] 300 mg PO QAM 10/17/17 04/29/19 Esomeprazole Magnesium [NexIUM] 20 mg PO QAM 07/12/18 04/29/19 Zolpidem [Ambien] 5 mg PO HS 09/14/18 04/29/19 Hydrocodone/Acetaminophen [[place] 1 tab PO QID PRN 10/04/18 04/29/19 5-325] Escitalopram [Lexapro] 20 mg PO QAM 12/19/18 04/29/19 Folic Acid 0.4 mg PO DAILY 03/18/19 04/29/19 Multivitamins, Thera [Multivitamin 1 tab PO DAILY 03/18/19 04/29/19 (formulary)] Folic Acid 0.4 mg PO DAILY 04/29/19 04/29/19 Niraparib Tosylate [[place]] 100 mg PO BID 04/29/19 04/29/19 Allergies Allergy/AdvReac Type Severity Reaction Status Date / Time adhesive Allergy Rash/Hives Verified 04/29/19 14:40 carboplatin Allergy Anaphylaxis Verified 04/29/19 14:40 ceftriaxone [From Rocephin] Allergy Itching Verified 04/29/19 14:40 iodine Allergy Rash/Hives Verified 04/29/19 14:40 Penicillins Allergy Rash/Hives Verified 04/29/19 14:40 codeine AdvReac Nausea & Verified 04/29/19 14:40 Vomiting morphine AdvReac Nausea & Verified 04/29/19 14:40 Vomiting Review of Systems ROS Statement: Those systems with pertinent positive or pertinent negative responses have been documented in the HPI. ROS Other: All systems not noted in ROS Statement are negative. Past Medical History Past Medical History: Cancer, Hypertension Additional Past Medical History / Comment(s): ovarian cancer History of Any Multi-Drug Resistant Organisms: VRE Date of last positivie culture/infection: 01/26/18 MDRO Source:: urine Past Surgical History: Hysterectomy Additional Past Surgical History / Comment(s): Bilateral oopherectomy/hysterectomy, 2 open exploratory abdominal surgery, R chest mediport placed 2011, bilateral retrograde pyelogram cystoscopy with R ureter st ent and stent exchanges, jaws have pins d/t surgery for TMJ, colonoscopy. left nephrosotomy tube placement 12/21. Past Anesthesia/Blood Transfusion Reactions: No Reported Reaction Additional Past Anesthesia/Blood Transfusion Reaction / Comment(s): Pt has received blood in past without reaction. Date of Last Stent Placement:: 2011 Past Psychological History: Anxiety, Depression Smoking Status: Never smoker Past Alcohol Use History: None Reported Past Drug Use History: None Reported - Past Family History Mother Family Medical History: Cancer, Diabetes Mellitus Brother(s) Family Medical History: Cancer Additional Family Medical History / Comment(s): Lung cancer- since passed. Sister(s) Family Medical History: CVA/TIA Father Family Medical History: Dementia, Neurologic Disorder Additional Family Medical History / Comment(s): Alzheimer's. General Exam Limitations: no limitations General appearance: alert, in no apparent distress Head exam: Present: atraumatic, normocephalic, normal inspection Eye exam: Present: normal appearance, PERRL, EOMI. Absent: scleral icterus, conjunctival injection, periorbital swelling ENT exam: Present: normal exam, mucous membranes moist Neck exam: Present: normal inspection. Absent: tenderness, meningismus, lymphadenopathy Respiratory exam: Present: normal lung sounds bilaterally. Absent: respiratory distress, wheezes, rales, rhonchi, stridor Cardiovascular Exam: Present: regular rate, normal rhythm, normal heart sounds. Absent: systolic murmur, diastolic murmur, rubs, gallop, clicks GI/Abdominal exam: Present: soft, normal bowel sounds. Absent: distended, tenderness, guarding, rebound, rigid Extremities exam: Present: normal inspection, full ROM, normal capillary refill. Absent: tenderness, pedal edema, joint swelling, calf tenderness Back exam: Present: normal inspection Neurological exam: Present: alert, oriented X3, CN II-XII intact Psychiatric exam: Present: normal affect, normal mood Skin exam: Present: warm, dry, intact, normal color. Absent: rash Course Vital Signs 04/29/19 04/29/19 04/29/19 14:01 14:08 15:05 Temperature 98.4 F 98.2 F Pulse Rate 88 87 Pulse Rate [ 82 Chemical Manager ] Respiratory 18 15 Rate Blood Pressure 140/93 122/66 O2 Sat by Pulse 98 96 Oximetry 04/29/19 04/29/19 16:00 17:00 Temperature 98.4 F 98.5 F Pulse Rate 72 80 Pulse Rate [ Chemical Manager ] Respiratory 16 17 Rate Blood Pressure 122/66 138/66 O2 Sat by Pulse 97 96 Oximetry - Reevaluation(s) Reevaluation #1: 04/29/19 15:08 Medical record is reviewed Reevaluation #2: 04/29/19 17:23 Patient still complaining of diffuse chronic pain, decreased appetite and weakness - Consultations Consultation #1: spoke w Dr. Metzger agRees for admission EKG Findings - EKG Comments: EKG Findings:: EKG shows sinus rhythm rate of 82, ND 136 QRS 76 QTc 450 Medical Decision Making - Medical Decision Making 63 female here for evaluation. Chronic pain with hypomagneseamia syndrome. Liver for pain control magnesium replacement - Lab Data Result diagrams: 04/29/19 14:44 04/29/19 14:44 Lab Results 04/29/19 04/29/19 Range/Units 14:44 14:44 WBC 4.7 (3.8-10.6) k/uL RBC 3.38 L (3.80-5.40) m/uL Hgb 10.7 L (11.4-16.0) gm/dL Hct 31.3 L (34.0-46.0) % MCV 92.6 (80.0-100.0) fL MCH 31.7 (25.0-35.0) pg MCHC 34.2 (31.0-37.0) g/dL RDW 15.2 (11.5-15.5) % Plt Count 170 (150-450) k/uL Neutrophils % 66 % Lymphocytes % 24 % Monocytes % 5 % Eosinophils % 2 % Basophils % 1 % Neutrophils # 3.1 (1.3-7.7) k/uL Lymphocytes # 1.1 (1.0-4.8) k/uL Monocytes # 0.3 (0-1.0) k/uL Eosinophils # 0.1 (0-0.7) k/uL Basophils # 0.0 (0-0.2) k/uL Sodium 141 (137-145) mmol/L Potassium 3.4 L (3.5-5.1) mmol/L Chloride 107 (98-107) mmol/L Carbon Dioxide 26 (22-30) mmol/L Anion Gap 8 mmol/L BUN 18 H (7-17) mg/dL Creatinine 1.18 H (0.52-1.04) mg/dL Est GFR (CKD-EPI)AfAm 56 (>60 ml/min/1.73 sqM) Est GFR (CKD-EPI)NonAf 49 (>60 ml/min/1.73 sqM) Glucose 138 H (74-99) mg/dL Calcium 9.2 (8.4-10.2) mg/dL Phosphorus 3.8 (2.5-4.5) mg/dL Magnesium 1.2 L (1.6-2.3) mg/dL Total Bilirubin 0.4 (0.2-1.3) mg/dL AST 25 (14-36) U/L ALT 13 (4-34) U/L Alkaline Phosphatase 82 (38-126) U/L Total Protein 6.7 (6.3-8.2) g/dL Albumin 3.8 (3.5-5.0) g/dL Disposition Clinical Impression: Diarrhea, Hypomagnesemia, Nausea, Dehydration, Chronic pain, Weakness Disposition: ADMITTED IP TO THIS [facility] Condition: Fair Referrals: Kevin Metzger MD [Primary Care Provider] - 1-2 days
[2019-04-29] MEDS ORDERED: ONDANSETRON 4 MG/2 ML VIAL IVP STA (14:36)
[2019-04-29] MEDS: MAGNESIUM SULFATE-D5W PMX 1 GM in DEXTROSE/WATER 1 100ML.BAG IVPB SCH ×4 (14:49→18:42)
[2019-04-29 15:06] LABS: Basophils % (A) 1 %; Eosinophils # (A) 0.1 k/uL (0-0.7); Eosinophils % (A) 2 %; HCT 31.3 % (34.0-46.0); HGB 10.7 gm/dL (11.4-16.0); Lymphocytes # (A) 1.1 k/uL (1.0-4.8); Lymphocytes % (A) 24 %; MCH 31.7 pg (25.0-35.0); MCHC 34.2 g/dL (31.0-37.0); MCV 92.6 fL (80.0-100.0); Mean Platelet Volume 8.5; Monocytes # (A) 0.3 k/uL (0-1.0); Monocytes % (A) 5 %; Neutrophils # (A) 3.1 k/uL (1.3-7.7); Neutrophils % (A) 66 %; Platelet Count 170 k/uL (150-450); RBC 3.38 m/uL (3.80-5.40); RDW 15.2 % (11.5-15.5); WBC 4.7 k/uL (3.8-10.6)
[2019-04-29 15:14] LABS: Albumin 3.8 g/dL (3.5-5.0); Calcium 9.2 mg/dL (8.4-10.2); Magnesium 1.2 mg/dL (1.6-2.3); Phosphorus 3.8 mg/dL (2.5-4.5); Potassium 3.4 mmol/L (3.5-5.1); Total Bilirubin 0.4 mg/dL (0.2-1.3); Total Protein 6.7 g/dL (6.3-8.2)
[2019-04-29] MEDS ORDERED: SODIUM CHLORIDE 0.9% 1,000 ML IV ONE (17:20)
[2019-04-29] MEDS: ACETAMINOPHEN TAB 325 MG TAB PO PRN (22:31)
[2019-04-29] MEDS: ONDANSETRON 4 MG/2 ML VIAL IVP PRN (22:32)
[2019-04-30] MEDS: HYDROmorphone 1 MG/ML 1 ML SYRINGE IVP PRN ×5 (01:22→21:51)
[2019-04-30] MEDS: ACETAMINOPHEN TAB 325 MG TAB PO PRN (03:55)
[2019-04-30] MEDS: ONDANSETRON 4 MG/2 ML VIAL IVP PRN (03:57)
[2019-04-30 08:09] LABS: Calcium 9.5 mg/dL (8.4-10.2); Magnesium 1.8 mg/dL (1.6-2.3); Phosphorus 3.2 mg/dL (2.5-4.5); Potassium 3.6 mmol/L (3.5-5.1)
[2019-04-30] MEDS: MAGNESIUM OXIDE 400 MG TAB PO SCH (08:37)
[2019-04-30] MEDS: PROMETHAZINE HCL 6.25 MG/5 ML CUP PO PRN ×2 (10:12→17:49)
[2019-04-30] MEDS ORDERED: HYDROcodone/APAP 5-325MG 1 EACH TAB PO PRN (10:44)
[2019-04-30] MEDS ORDERED: NON FORMULARY DRUG (Folic Acid [Folic Acid] 0.4 MG) PO SCH (10:45)
[2019-04-30] MEDS: NIRAPARIB TOSYLATE 100 MG PO SCH ×2 (13:16→21:45)
[2019-04-30] MEDS: FOLIC ACID 1 MG TAB PO SCH (13:16)
[2019-04-30] MEDS: GABAPENTIN 300 MG CAP PO SCH (13:16)
[2019-04-30] MEDS: DILTIAZEM CD 120 MG CAP.ER.24H PO SCH (15:27)
[2019-04-30] MEDS: PANTOPRAZOLE 40 MG TABLET PO SCH (15:27)
[2019-04-30] MEDS: ESCITALOPRAM 20 MG TAB PO SCH (15:27)
--- NOTE | 2019-04-30 17:55 | HP ---
HISTORY AND PHYSICAL CHIEF COMPLAINT: Dehydration, general debility and weakness, hypomagnesemia, abdominal and flank pain. HISTORY OF PRESENT ILLNESS: This is another admission for this 63-year-old white female who has terminal ovarian carcinoma. She is getting chemotherapy from a physician in the [place] area. She has also had multiple problems with ureteral obstruction, for which she has a ureterostomy tube that has been placed transcutaneously. It is functioning well. She has been having increasing amounts of lower abdominal flank pain as well as malaise and anorexia. She came to the emergency room, where she was dehydrated and she was found to have hypomagnesemia. REVIEW OF SYSTEMS: She denies any headaches, neurologic problems, chest pain, shortness of breath, nausea, vomiting, hematemesis, melena, hematochezia, hematuria, etc. Past medical history, family history, and personal and social histories are all otherwise unremarkable or unchanged from recent admitting and discharge summaries. PHYSICAL EXAMINATION: Temperature 98.4 with a pulse of 88, respirations of 18, blood pressure 140/93. In general she appeared to be pale, weak and dehydrated. Head, ears, eyes, nose, mouth and throat were normal. Chest demonstrated scattered rales. Cardiac exam was normal. The abdomen was flat and she was tender in the lower abdomen where there was firmness. Bowel sounds were heard. She had a ureterostomy tube in the right flank. Extremities were normal and neurologically she was intact. IMPRESSION: 1. Terminal carcinoma of the ovary. 2. Dehydration. 3. Hypomagnesemia. 4. History of hypertension. 5. Ureteral obstruction with percutaneous ureterostomy tube. PLAN: 1. Bed rest. 2. IV fluids. 3. Correct hypomagnesemia. 4. Pain management. MMODL / IJN: [id number] /
--- NOTE | 2019-04-30 18:01 | PN ---
PROGRESS NOTE CHIEF COMPLAINT: Abdominal pain, dehydration, nausea and terminal carcinoma of the ovary. HISTORY OF PRESENT ILLNESS: This lady is still having quite a bit of lower abdominal and flank discomfort. She has had no fever or chills. PHYSICAL EXAMINATION: Chest is clear. Abdomen is tender in the lower aspects with no rebound or referred tenderness. Bowel sounds are present. Extremities are normal. IMPRESSION: 1. Advanced carcinoma of the ovary. 2. Right ureteral obstruction with ureterostomy. 3. Dehydration. 4. Hypomagnesemia. 5. Depression. PLAN: 1. Continue IV fluids and correct magnesium. 2. Analgesia. 3. Advance diet and activity slowly. MMODL / IJN: [id number] /
[2019-04-30] MEDS ORDERED: ZOLPIDEM 5 MG TAB PO SCH (21:00)
[2019-04-30 21:06] VITALS: RESP 16
[2019-05-01] MEDS: PROMETHAZINE HCL 6.25 MG/5 ML CUP PO PRN (00:21)
[2019-05-01 05:22] VITALS: BP 121/75; TEMP 98.3
[2019-05-01] MEDS: HYDROmorphone 1 MG/ML 1 ML SYRINGE IVP PRN (06:58)
[2019-05-01] MEDS: ONDANSETRON 4 MG/2 ML VIAL IVP PRN (08:09)
[2019-05-01] MEDS: GABAPENTIN 300 MG CAP PO SCH (09:24)
[2019-05-01] MEDS: MAGNESIUM OXIDE 400 MG TAB PO SCH (09:24)
[2019-05-01] MEDS: FOLIC ACID 1 MG TAB PO SCH (09:24)
[2019-05-01] MEDS: DILTIAZEM CD 120 MG CAP.ER.24H PO SCH (09:24)
[2019-05-01] MEDS: ESCITALOPRAM 20 MG TAB PO SCH (09:24)
[2019-05-01] MEDS: PANTOPRAZOLE 40 MG TABLET PO SCH (09:24)
[2019-05-01 11:42] VITALS: PULSE 86
--- NOTE | 2019-05-01 23:44 | DS ---
DISCHARGE SUMMARY CHIEF COMPLAINT: Abdominal pain and intractable nausea and vomiting with dehydration. HISTORY OF PRESENT ILLNESS AND PHYSICAL EXAM: Details of this lady's history and physical can be found in the initial workup. LABORATORY STUDIES: While she was in the hospital, she had laboratory studies, details of which can be found in the laboratory section of her chart. COURSE IN HOSPITAL: After admission, she was placed on bedrest, started on intravenous fluids and analgesics. The pain slowly subsided and she had no significant problem with nausea. As she improved, her diet and activity were advanced and she was doing well enough on the that it was felt she could be discharged. She will go home on usual activity, diet and medication and will follow up in the next several days. FINAL DIAGNOSIS: 1. Intractable nausea and vomiting. 2. Trach. 3. Intractable abdominal pain. 4. Advancing carcinoma of the ovary. 5. Obstructive obstruction of the right ureter. OPERATIONS: None. CONSULTATION: None. She is improved. MMODL / IJN: [id number] /
== END 2019-05-01 12:15 | disposition home or self-care (01) | DRG 641 ==
LOC: EC 13:45 → 5NMEDONC 17:20
PROVIDERS: ADMIT Family Medicine; ATTEND Family Medicine
DX: E86.0 Dehydration (principal); C56.9 Malignant neoplasm of unspecified ovary; R11.2 Nausea with vomiting, unspecified; E83.42 Hypomagnesemia; F32.9 Major depressive disorder, single episode, unspecified; I10 Essential (primary) hypertension; F41.9 Anxiety disorder, unspecified; G89.29 Other chronic pain; Z82.0 Family history of epilepsy and other diseases of the nervous system; Z83.3 Family history of diabetes mellitus; Z80.1 Family history of malignant neoplasm of trachea, bronchus and lung; Z85.43 Personal history of malignant neoplasm of ovary; Z90.710 Acquired absence of both cervix and uterus; Z98.890 Other specified postprocedural states; Z82.3 Family history of stroke; Z81.8 Family history of other mental and behavioral disorders; Z88.1 Allergy status to other antibiotic agents; Z91.041 Radiographic dye allergy status; Z88.5 Allergy status to narcotic agent; Z88.0 Allergy status to penicillin; Z91.048 Other nonmedicinal substance allergy status
CPT/HCPCS: 36415; 80048; 80053; 83735; 84100; 85025; 93005; 96361; 96365; 96366; 96375; 96376; 99285

== ENCOUNTER → 2019-05-06 | Day surgery (SDC) | payer MEDICARE ==
[2019-05-06 18:31] VITALS: BP 158/81; PULSE 77; RESP 20; TEMP 98.1
== END ==
LOC: RADPROMAIN 14:38
PROVIDERS: ATTEND Radiology Diagnostic Radiology
DX: Z48.03 Encounter for change or removal of drains (principal)
CPT/HCPCS: 99213

== ENCOUNTER 2019-05-09 15:03 | Inpatient (IN) | payer MEDICARE ==
[2019-05-09] MEDS ORDERED: SODIUM CHLORIDE 0.9% 1,000 ML IV STA (17:05)
--- NOTE | 2019-05-09 17:05 | ED ---
General Adult HPI - General Chief complaint: Weakness Stated complaint: Weakness Time Seen by Provider: 05/09/19 16:43 Source: patient Mode of arrival: wheelchair - History of Present Illness Initial comments: Dictation was produced using [employer] dictation software. please excuse any grammatical, word or spelling errors. Chief Complaint: 63-year-old female past medical history of ovarian cancer presents with lower extremity weakness. History of Present Illness: 63-year-old female she has past medical history ovarian cancer. Patient states she takes chemotherapy pills. Patient states that over the last 24-48 hours she's been having worsening weakness. Patient has a history of hypomagnesemia. She was admitted recently for hypomagnesemia requiring IV magnesium. Patient also has history of urostomy tube that was placed due to mechanical compression from the ovarian tumor. Patient also having some left-sided flank pain. The ROS documented in this emergency department record has been reviewed and confirmed by me. Those systems with pertinent positive or negative responses have been documented in the HPI. All other systems are other negative and/or noncontributory. PHYSICAL EXAM: General Impression: Alert and oriented x3, not in acute distress HEENT: Normocephalic atraumatic, extra-ocular movements intact, pupils equal and reactive to light bilaterally, mucous membranes moist. Cardiovascular: Heart regular rate and rhythm, S1&S2 audible, no murmurs, rubs or gallops Chest: Lungs clear to auscultation bilaterally, no rhonchi, no wheeze, no rales Abdomen: Bowel sounds present, abdomen soft, non-tender, non-distended, no organomegaly, urostomy tube on the right flank. Surgical sites clean dry and intact Musculoskeletal: Pulses present and equal in all extremities, no peripheral edema Motor: no focal deficits noted Neurological: CN II-XII grossly intact, no focal motor or sensory deficits noted Skin: Intact with no visualized rashes Psych: Normal affect and mood ED course: 63-year-old female presents with chief complaint of generalized weakness. Ends upon arrival shows heart rate of 110, worse vital signs within acceptable limits. Laboratory evaluation obtained. No leukocytosis. Hemoglobin 10.8. Platelets are 87 which is decreased from usual her she's had history of Darvocet of pain in the past. Sightly secondary to chemotherapy medications. Metabolic panel shows magnesium 1.3. Urinalysis shows [address]iscuss[address] patient case Dr[address] Metzger who is willing to accept patients care. Patient ordered for parenteral magnesium. Patient will be admitted to observation. - Related Data Home Medications Medication Instructions Recorded Confirmed Diltiazem HCl [Diltiazem 24Hr ER] 120 mg PO QAM 08/25/14 04/29/19 Gabapentin [Neurontin] 300 mg PO QAM 10/17/17 04/29/19 Esomeprazole Magnesium [NexIUM] 20 mg PO QAM 07/12/18 04/29/19 Zolpidem [Ambien] 5 mg PO HS 09/14/18 04/29/19 Hydrocodone/Acetaminophen [[place] 1 tab PO QID PRN 10/04/18 04/29/19 5-325] Escitalopram [Lexapro] 20 mg PO QAM 12/19/18 04/29/19 Multivitamins, Thera [Multivitamin 1 tab PO DAILY 03/18/19 04/29/19 (formulary)] Folic Acid 0.4 mg PO DAILY 04/29/19 04/29/19 Niraparib Tosylate [[place]] 100 mg PO BID 04/29/19 04/29/19 Previous Rx's Medication Instructions Recorded Magnesium Oxide [Mag-Ox] 400 mg PO DAILY #30 tab 05/01/19 Allergies Allergy/AdvReac Type Severity Reaction Status Date / Time adhesive Allergy Rash/Hives Verified 04/29/19 14:40 carboplatin Allergy Anaphylaxis Verified 04/29/19 14:40 ceftriaxone [From Rocephin] Allergy Itching Verified 04/29/19 14:40 iodine Allergy Rash/Hives Verified 04/29/19 14:40 Penicillins Allergy Rash/Hives Verified 04/29/19 14:40 codeine AdvReac Nausea & Verified 04/29/19 14:40 Vomiting morphine AdvReac Nausea & Verified 04/29/19 14:40 Vomiting Review of Systems ROS Statement: Those systems with pertinent positive or pertinent negative responses have been documented in the HPI. ROS Other: All systems not noted in ROS Statement are negative. Past Medical History Past Medical History: Cancer, Hypertension Additional Past Medical History / Comment(s): ovarian cancer History of Any Multi-Drug Resistant Organisms: VRE Date of last positivie culture/infection: 01/26/18 MDRO Source:: urine Past Surgical History: Hysterectomy Additional Past Surgical History / Comment(s): Bilateral oopherectomy/hysterectomy, 2 open exploratory abdominal surgery, R chest medip ort placed 2011, bilateral retrograde pyelogram cystoscopy with R ureter stent and stent exchanges, jaws have pins d/t surgery for TMJ, colonoscopy. Right nephrosotomy tube placement 12/31 (still in place). Past Anesthesia/Blood Transfusion Reactions: No Reported Reaction Additional Past Anesthesia/Blood Transfusion Reaction / Comment(s): Pt has re ceived blood in past without reaction. Date of Last Stent Placement:: 2011 Past Psychological History: Anxiety, Depression Smoking Status: Never smoker Past Alcohol Use History: None Reported Past Drug Use History: None Reported - Past Family History Mother Family Medical History: Cancer, Diabetes Mellitus Brother(s) Family Medical History: Cancer Additional Family Medical History / Comment(s): Lung cancer- since passed. Sister(s) Family Medical History: CVA/TIA Father Family Medical History: Dementia, Neurologic Disorder Additional Family Medical History / Comment(s): Alzheimer's. Course Vital Signs 05/09/19 16:19 Temperature 98.6 F Pulse Rate 110 H Respiratory 19 Rate Blood Pressure 130/48 O2 Sat by Pulse 99 Oximetry Medical Decision Making - Lab Data Result diagrams: 05/09/19 17:17 05/09/19 17:17 Lab Results 05/09/19 05/09/19 05/09/19 Range/Units 17:17 17:17 17:17 WBC 4.0 (3.8-10.6) k/uL RBC 3.42 L (3.80-5.40) m/uL Hgb 10.8 L (11.4-16.0) gm/dL Hct 31.4 L (34.0-46.0) % MCV 91.9 (80.0-100.0) fL MCH 31.4 (25.0-35.0) pg MCHC 34.2 (31.0-37.0) g/dL RDW 16.1 H (11.5-15.5) % Plt Count 87 L (150-450) k/uL Neutrophils % 58 % Lymphocytes % 30 % Monocytes % 6 % Eosinophils % 2 % Basophils % 0 % Neutrophils # 2.4 (1.3-7.7) k/uL Lymphocytes # 1.2 (1.0-4.8) k/uL Monocytes # 0.3 (0-1.0) k/uL Eosinophils # 0.1 (0-0.7) k/uL Basophils # 0.0 (0-0.2) k/uL Manual Slide Review Performed Anisocytosis Slight Sodium 141 (137-145) mmol/L Potassium 3.5 (3.5-5.1) mmol/L Chloride 104 (98-107) mmol/L Carbon Dioxide 27 (22-30) mmol/L Anion Gap 10 mmol/L BUN 14 (7-17) mg/dL Creatinine 0.89 (0.52-1.04) mg/dL Est GFR (CKD-EPI)AfAm 79 (>60 ml/min/1.73 sqM) Est GFR (CKD-EPI)NonAf 68 (>60 ml/min/1.73 sqM) Glucose 101 H (74-99) mg/dL Calcium 9.2 (8.4-10.2) mg/dL Magnesium 1.3 L (1.6-2.3) mg/dL Urine Color Yellow Urine Appearance Clear (Clear) Urine pH 5.5 (5.0-8.0) Ur Specific [place] 1.021 (1.001-1.035) Urine Protein 1+ H (Negative) Urine Glucose (UA) Negative (Negative) Urine Ketones Negative (Negative) Urine Blood Negative (Negative) Urine Nitrite Negative (Negative) Urine Bilirubin Negative (Negative) Urine Urobilinogen <2.0 (<2.0) mg/dL Ur Leukocyte Esterase Moderate H (Negative) Urine RBC 2 (0-5) /hpf Urine WBC 20 H (0-5) /hpf Ur Squamous Epith Cells 2 (0-4) /hpf Urine Bacteria Rare H (None) /hpf Urine Mucus Rare H (None) /hpf Disposition Clinical Impression: Hypomagnesemia Disposition: ADMITTED IP TO THIS [facility] Condition: Fair Referrals: Kevin Metzger MD [Primary Care Provider] - 1-2 days Decision Time: 18:31
[2019-05-09] MEDS ORDERED: HYDROmorphone 0.5 MG/0.5 ML SYRINGE IVP STA (17:22)
[2019-05-09 17:36] LABS: Anisocytosis Slight; Basophils % (A) 0 %; Eosinophils # (A) 0.1 k/uL (0-0.7); Eosinophils % (A) 2 %; HCT 31.4 % (34.0-46.0); HGB 10.8 gm/dL (11.4-16.0); Lymphocytes # (A) 1.2 k/uL (1.0-4.8); Lymphocytes % (A) 30 %; MCH 31.4 pg (25.0-35.0); MCHC 34.2 g/dL (31.0-37.0); MCV 91.9 fL (80.0-100.0); Mean Platelet Volume 8.8; Monocytes # (A) 0.3 k/uL (0-1.0); Monocytes % (A) 6 %; Neutrophils # (A) 2.4 k/uL (1.3-7.7); Neutrophils % (A) 58 %; RBC 3.42 m/uL (3.80-5.40); RDW 16.1 % (11.5-15.5)
[2019-05-09 17:40] LABS: Calcium 9.2 mg/dL (8.4-10.2); Magnesium 1.3 mg/dL (1.6-2.3); Potassium 3.5 mmol/L (3.5-5.1)
[2019-05-09 17:43] LABS: Appearance,Urine Clear (Clear); Bacteria,Urine Rare /hpf; Bilirubin,Urine Negative (Negative); Blood,Urine Negative (Negative); Color,Urine Yellow; Glucose,Urine (UA) Negative (Negative); Ketones,Urine Negative (Negative); Leukocyte Esterase,Urine Moderate (Negative); Mucus,Urine Rare /hpf; Nitrite,Urine Negative (Negative); PH, Urine 5.5 (5.0-8.0); Protein,Urine 1+ (Negative); RBC,Urine 2 /hpf (0-5); Specific Gravity,Urine 1.021 (1.001-1.035); Squamous Epithelial Cell,Urine 2 /hpf (0-4); Urobilinogen,Urine <2.0 mg/dL (<2.0); WBC,Urine 20 /hpf (0-5)
[2019-05-09 18:06] LABS: Platelet Count 87 k/uL (150-450)
[2019-05-09] MEDS ORDERED: NALOXONE 0.4 MG/ML 1 ML VIAL IV PRN (18:27)
[2019-05-09] MEDS: MAGNESIUM SULFATE-D5W PMX 1 GM in DEXTROSE/WATER 1 100ML.BAG IVPB SCH ×2 (18:29→20:27)
[2019-05-09] MEDS: SODIUM CHLORIDE 0.9% 1,000 ML IV SCH (19:35)
[2019-05-09] MEDS ORDERED: PROCHLORPERAZINE 10 MG TAB PO PRN (19:57)
[2019-05-09] MEDS: HYDROmorphone 0.5 MG/0.5 ML SYRINGE IVP PRN (20:24)
[2019-05-09] MEDS ORDERED: NIRAPARIB TOSYLATE PO SCH (21:00)
[2019-05-09] MEDS: GABAPENTIN 300 MG CAP PO SCH (21:10)
[2019-05-09] MEDS: NIRAPARIB TOSYLATE PO SCH (21:11)
[2019-05-09] MEDS: HYDROcodone/APAP 5-325MG 1 EACH TAB PO PRN (21:51)
[2019-05-09] MEDS: IBUPROFEN 800 MG TAB PO PRN (23:43)
[2019-05-10] MEDS: ZOLPIDEM 5 MG TAB PO SCH ×2 (00:14→23:43)
[2019-05-10] MEDS: DILTIAZEM CD 180 MG CAP.ER.24H PO SCH (08:00)
[2019-05-10] MEDS: GABAPENTIN 300 MG CAP PO SCH ×2 (08:00→21:23)
[2019-05-10] MEDS: FOLIC ACID 1 MG TAB PO SCH (08:00)
[2019-05-10] MEDS: ESCITALOPRAM 20 MG TAB PO SCH (08:00)
[2019-05-10] MEDS: PANTOPRAZOLE 40 MG TABLET PO SCH (08:01)
[2019-05-10] MEDS: HYDROmorphone 0.5 MG/0.5 ML SYRINGE IVP PRN ×4 (08:23→21:25)
[2019-05-10] MEDS ORDERED: MAGNESIUM OXIDE 400 MG TAB PO SCH (09:00)
[2019-05-10] MEDS: MAGNESIUM OXIDE 400 MG TAB PO SCH ×3 (11:06→21:24)
[2019-05-10 13:01] VITALS: BMI 23.5
[2019-05-10] MEDS ORDERED: diphenhydrAMINE 25 MG CAP PO PRN (13:25)
--- NOTE | 2019-05-10 16:21 | US ---
EXAMINATION TYPE: US abdomen complete DATE OF EXAM: 05/10/2019 COMPARISON: NONE CLINICAL HISTORY: abd. ultrasound for L. flank pain, Ca ovary. Left flank pain, cholecystectomy, righ t nephrostomy tube EXAM MEASUREMENTS: Liver Length: 16.4 cm Gallbladder Wall: Surgically absent CBD: 1.2 cm Spleen: 9.3 cm Right Kidney: 10.1 x 3.7 x 3.8 cm Left Kidney: 9.7 x 4.3 x 4.3 cm Pancreas: Tail obscured by overlying bowel gas, duct = 0.3cm Liver: cystic area = 1.5 x 1.4 x 1.3cm Gallbladder: Surgically absent Evidence for sonographic Wooten's sign: no CBD: dilated Spleen: appears wnl Right Kidney: dense echogenic areas noted, probable nephrostomy tube Left Kidney: no evidence of hydronephrosis Upper IVC: wnl Abd Aorta: visualized portions appear wnl The liver is homogenous. The intrahepatic portion of the IVC and proximal abdominal aorta are within normal limits. There is no evidence of cholelithiasis. The visualized portions of the pancreas are homogenous. The spleen is unremarkable. Kidneys are symmetric and free of hydronephrosis. No marielle l lesions are seen. IMPRESSION: 1. Cystic lesion within the liver. 2. Dilated common bile duct. 3 probable right-sided nephrostomy tube. No evidence for hydronephrosis.
--- NOTE | 2019-05-10 18:02 | HP ---
HISTORY AND PHYSICAL CHIEF COMPLAINT: Low back pain. HISTORY OF PRESENT ILLNESS: This is another recent admission for this 63-year-old white female with ovarian cancer. She has been having a lot of trouble on the right side in the past due to a ureteral obstruction due to her neoplasm. She has a stent in that side. A day or two ago she started developing pain in the left flank area. She has had no fever or chills. She is still getting chemotherapy. REVIEW OF SYSTEMS: She has had no headaches, neurologic problems, chest pain, shortness of breath, palpitations, orthopnea, PND, nausea or vomiting, melena or hematochezia, dysuria, etc. Past medical history, family history, and personal and social histories are essentially unchanged from her recent admitting and discharge summaries. ALLERGIES: 1. CARBOPLATIN. 2. CLINDAMYCIN. 3. IODINE. 4. PENICILLIN. 5. CODEINE. 6. CARBITE. MEDICATIONS: Medications can be found in the admitting medication section of her chart. She has never smoked and she does not drink. PHYSICAL EXAMINATION: Blood pressure is 110/50 with a pulse of 84, respirations of 16, and she is afebrile. In general she appeared to be pale and chronically ill. She is losing weight. She has alopecia. Head, ears, eyes, nose, mouth and throat were normal. The chest was clear. Cardiac exam demonstrated sinus rhythm. The abdomen was soft. There was lower abdominal fullness due to her neoplasm. Extremities were normal. She was tender in the left flank. IMPRESSION: 1. Left flank pain. 2. Possible left ureteral obstruction. 3. Advancing carcinoma of the ovary. 4. Hypertension. PLAN: 1. Bed rest. 2. IV fluids. 3. Echo of the left kidney. 4. Analgesics. MMODL / IJN: [id number] /
--- NOTE | 2019-05-10 18:47 | PN ---
PROGRESS NOTE CHIEF COMPLAINT: Left flank pain. HISTORY OF PRESENT ILLNESS: This lady is still in quite a bit of discomfort. She has had no fever or chills and she is not vomiting. PHYSICAL EXAMINATION: She is tender in the left flank. There is no tenderness or mass in the left upper quadrant. Bowel sounds are present. Color remains pale. IMPRESSION: Left flank pain. PLAN: 1. Ultrasound of the abdomen with attention to the left kidney. 2. Analgesics. MMODL / IJN: [id number] /
[2019-05-10] MEDS: diphenhydrAMINE 25 MG CAP PO PRN (19:28)
[2019-05-10] MEDS: ONDANSETRON 4 MG TAB PO PRN (19:57)
[2019-05-10] MEDS: NIRAPARIB TOSYLATE PO SCH (21:23)
[2019-05-10] MEDS: SODIUM CHLORIDE 0.9% 1,000 ML IV SCH (21:36)
[2019-05-11] MEDS: HYDROcodone/APAP 5-325MG 1 EACH TAB PO PRN ×2 (03:07→11:45)
[2019-05-11] MEDS: DILTIAZEM CD 180 MG CAP.ER.24H PO SCH (08:20)
[2019-05-11] MEDS: FOLIC ACID 1 MG TAB PO SCH (08:20)
[2019-05-11] MEDS: GABAPENTIN 300 MG CAP PO SCH ×2 (08:20→21:56)
[2019-05-11] MEDS: MAGNESIUM OXIDE 400 MG TAB PO SCH ×3 (08:20→21:56)
[2019-05-11] MEDS: PANTOPRAZOLE 40 MG TABLET PO SCH (08:20)
[2019-05-11] MEDS: ESCITALOPRAM 20 MG TAB PO SCH (08:21)
[2019-05-11] MEDS: HYDROmorphone 0.5 MG/0.5 ML SYRINGE IVP PRN ×3 (10:51→20:33)
[2019-05-11] MEDS: LEVOFLOXACIN 500MG-D5W PMX 500 MG in DEXTROSE/WATER 1 100ML.BAG IVPB SCH (11:45)
[2019-05-11 11:56] LABS: Calcium 9.7 mg/dL (8.4-10.2); Magnesium 1.4 mg/dL (1.6-2.3); Total Bilirubin 0.6 mg/dL (0.2-1.3); Total Protein 6.9 g/dL (6.3-8.2)
[2019-05-11 11:59] LABS: Anisocytosis Slight; Basophils % (A) 1 %; Eosinophils # (A) 0.1 k/uL (0-0.7); Eosinophils % (A) 2 %; HCT 33.4 % (34.0-46.0); HGB 11.1 gm/dL (11.4-16.0); Lymphocytes # (A) 1.2 k/uL (1.0-4.8); Lymphocytes % (A) 29 %; MCH 30.9 pg (25.0-35.0); MCHC 33.2 g/dL (31.0-37.0); Mean Platelet Volume 8.5; Monocytes # (A) 0.2 k/uL (0-1.0); Monocytes % (A) 5 %; Neutrophils # (A) 2.5 k/uL (1.3-7.7); Neutrophils % (A) 60 %; RDW 16.1 % (11.5-15.5); WBC 4.1 k/uL (3.8-10.6)
[2019-05-11 12:03] LABS: Platelet Count 79 k/uL (150-450)
[2019-05-11] MEDS: diphenhydrAMINE 25 MG CAP PO PRN (12:34)
--- NOTE | 2019-05-11 13:45 | PN ---
PROGRESS NOTE CHIEF COMPLAINT: Left flank pain. HISTORY OF PRESENT ILLNESS: This lady is improved. Flank pain is better. Ultrasound does not demonstrate hydronephrosis on the left. She has had no fever or chills. She does have a positive urinary culture. PHYSICAL EXAMINATION: She remains pale. Chest is clear. Cardiac exam is normal. Abdomen is soft and there is the usual fullness in the lower half of the abdomen. The left flank is not tender. IMPRESSION: 1. Left flank pain-resolving, probably due to pyelonephritis. 2. Right obstructed ureter with ureterostomy. 3. Advancing ovarian carcinoma. PLAN: Start Levaquin 500 mg IV once a day and probably home in a day or 2 if her flank pain continues to improve. MMODL / IJN: [id number] /
[2019-05-11] MEDS: NIRAPARIB TOSYLATE PO SCH (21:56)
[2019-05-11] MEDS: SODIUM CHLORIDE 0.9% 1,000 ML IV SCH (21:57)
[2019-05-11] MEDS: ZOLPIDEM 5 MG TAB PO SCH (23:06)
[2019-05-12] MEDS: ONDANSETRON 4 MG TAB PO PRN ×2 (07:51→14:52)
[2019-05-12] MEDS: FOLIC ACID 1 MG TAB PO SCH (07:55)
[2019-05-12] MEDS: MAGNESIUM OXIDE 400 MG TAB PO SCH ×3 (07:55→21:00)
[2019-05-12] MEDS: DILTIAZEM CD 180 MG CAP.ER.24H PO SCH (07:55)
[2019-05-12] MEDS: GABAPENTIN 300 MG CAP PO SCH ×2 (07:55→21:00)
[2019-05-12] MEDS: ESCITALOPRAM 20 MG TAB PO SCH (07:55)
[2019-05-12] MEDS: PANTOPRAZOLE 40 MG TABLET PO SCH (07:56)
[2019-05-12] MEDS: LEVOFLOXACIN 500MG-D5W PMX 500 MG in DEXTROSE/WATER 1 100ML.BAG IVPB SCH (07:56)
[2019-05-12] MEDS: HYDROmorphone 0.5 MG/0.5 ML SYRINGE IVP PRN ×4 (08:08→20:08)
[2019-05-12] MEDS ORDERED: MAGNESIUM HYDROXIDE 2,400 MG/10 ML CUP PO PRN (13:27)
--- NOTE | 2019-05-12 20:32 | PN ---
PROGRESS NOTE CHIEF COMPLAINT: Left flank pain. HISTORY OF PRESENT ILLNESS: This lady is having increasing pain, but now it is in the lower abdomen. She is wondering if it is due to constipation. She has had no fever, chills, nausea, vomiting, etc. There is no abnormality seen in the left kidney or collecting system. PHYSICAL EXAMINATION: Chest is clear. Cardiac exam is normal. Abdomen is soft and slightly tender in the left side. Right ureterostomy tube is draining. The lower abdomen demonstrates her palpable tumor. IMPRESSION: 1. Lower abdominal pain, etiology unknown. 2. Carcinoma of the ovary. 3. Obstructed right ureter. PLAN: Start stool softeners and single dose of milk of magnesia to see if constipation could be part of her problem. MMODL / IJN: [id number] /
[2019-05-12] MEDS: NIRAPARIB TOSYLATE PO SCH (21:00)
[2019-05-12] MEDS: IBUPROFEN 800 MG TAB PO PRN (22:33)
[2019-05-12] MEDS: ZOLPIDEM 5 MG TAB PO SCH (23:16)
[2019-05-12] MEDS: POLYETHYLENE GLYCOL 3350 17 GM POWD.PACK PO SCH (23:16)
[2019-05-13] MEDS: HYDROmorphone 0.5 MG/0.5 ML SYRINGE IVP PRN ×3 (00:07→21:00)
[2019-05-13] MEDS: SODIUM CHLORIDE 0.9% 1,000 ML IV SCH ×2 (06:10→23:14)
[2019-05-13] MEDS: GABAPENTIN 300 MG CAP PO SCH ×2 (07:36→21:00)
[2019-05-13] MEDS: FOLIC ACID 1 MG TAB PO SCH (07:36)
[2019-05-13] MEDS: MAGNESIUM OXIDE 400 MG TAB PO SCH ×3 (07:36→21:00)
[2019-05-13] MEDS: DILTIAZEM CD 180 MG CAP.ER.24H PO SCH (07:36)
[2019-05-13] MEDS: ESCITALOPRAM 20 MG TAB PO SCH (07:36)
[2019-05-13] MEDS: PANTOPRAZOLE 40 MG TABLET PO SCH (07:36)
[2019-05-13] MEDS: LEVOFLOXACIN 500MG-D5W PMX 500 MG in DEXTROSE/WATER 1 100ML.BAG IVPB SCH (07:36)
[2019-05-13] MEDS: POLYETHYLENE GLYCOL 3350 17 GM POWD.PACK PO SCH ×2 (07:37→21:00)
[2019-05-13] MEDS: ONDANSETRON 4 MG TAB PO PRN (10:11)
[2019-05-13 11:48] LABS: Albumin 4.3 g/dL (3.5-5.0); Calcium 9.6 mg/dL (8.4-10.2); Magnesium 2.1 mg/dL (1.6-2.3); Potassium 3.9 mmol/L (3.5-5.1); Total Bilirubin 0.6 mg/dL (0.2-1.3); Total Protein 7.4 g/dL (6.3-8.2)
[2019-05-13] MEDS: HYDROcodone/APAP 5-325MG 1 EACH TAB PO PRN ×2 (11:56→17:09)
[2019-05-13 12:01] LABS: Anisocytosis Slight; Basophils # (A) 0.1 k/uL (0-0.2); Basophils % (A) 1 %; Eosinophils # (A) 0.1 k/uL (0-0.7); Eosinophils % (A) 1 %; HCT 34.7 % (34.0-46.0); HGB 11.4 gm/dL (11.4-16.0); Lymphocytes # (A) 0.8 k/uL (1.0-4.8); Lymphocytes % (A) 20 %; MCH 30.7 pg (25.0-35.0); MCHC 32.8 g/dL (31.0-37.0); MCV 93.6 fL (80.0-100.0); Mean Platelet Volume 9.3; Monocytes # (A) 0.2 k/uL (0-1.0); Monocytes % (A) 6 %; Neutrophils # (A) 2.6 k/uL (1.3-7.7); Neutrophils % (A) 69 %; RDW 16.3 % (11.5-15.5); WBC 3.8 k/uL (3.8-10.6)
[2019-05-13 12:10] LABS: Platelet Count 69 k/uL (150-450)
[2019-05-13] MEDS: NIRAPARIB TOSYLATE PO SCH (21:00)
--- NOTE | 2019-05-13 21:08 | PN ---
PROGRESS NOTE CHIEF COMPLAINT: Lower abdominal pain. HISTORY OF PRESENT ILLNESS: Her lower abdominal pain is still present and possibly a little bit worse. The left flank pain is gone. PHYSICAL EXAMINATION: Chest is clear. Cardiac exam is normal. Abdomen is nontender in the lower quadrants where she has palpable tumor. Bowel sounds are present. Flanks were nontender. IMPRESSION: 1. Lower abdominal pain, probably due to ovarian carcinoma. 2. Left flank pain-resolving. PLAN: Watch for one more day before attempting discharge to see what happens with her pain and magnesium. MMODL / IJN: [id number] /
[2019-05-13] MEDS: ZOLPIDEM 5 MG TAB PO SCH (22:58)
[2019-05-14] MEDS: HYDROmorphone 0.5 MG/0.5 ML SYRINGE IVP PRN ×2 (01:35→10:44)
[2019-05-14] MEDS: SODIUM CHLORIDE 0.9% 1,000 ML IV SCH (04:23)
[2019-05-14 04:25] VITALS: RESP 14
[2019-05-14] MEDS: POLYETHYLENE GLYCOL 3350 17 GM POWD.PACK PO SCH (07:10)
[2019-05-14] MEDS: ESCITALOPRAM 20 MG TAB PO SCH (07:17)
[2019-05-14] MEDS: FOLIC ACID 1 MG TAB PO SCH (07:17)
[2019-05-14] MEDS: PANTOPRAZOLE 40 MG TABLET PO SCH (07:17)
[2019-05-14] MEDS: GABAPENTIN 300 MG CAP PO SCH (07:17)
[2019-05-14] MEDS: DILTIAZEM CD 180 MG CAP.ER.24H PO SCH (07:17)
[2019-05-14] MEDS: MAGNESIUM OXIDE 400 MG TAB PO SCH (07:17)
[2019-05-14] MEDS ORDERED: LEVOFLOXACIN 500 MG TAB PO SCH (09:00)
[2019-05-14 11:49] VITALS: BP 138/77; PULSE 104; TEMP 98.6
[2019-05-14] MEDS: HYDROcodone/APAP 5-325MG 1 EACH TAB PO PRN (12:29)
--- NOTE | 2019-05-14 14:03 | DS ---
DISCHARGE SUMMARY CHIEF COMPLAINT: Left flank pain. HISTORY OF PRESENT ILLNESS AND PHYSICAL EXAM: Details of this lady's history and physical can be found in the initial workup. LABORATORY STUDIES: While she was in the hospital she had laboratory studies, details of which can be found in the laboratory section of her chart. COURSE IN HOSPITAL: After admission, she was placed on bedrest, started on intravenous fluids and analgesics. It was thought that she may have ureteral obstruction on the left, but ultrasound failed to demonstrate pathology in the ureter or the kidney on that side. She then began to develop some lower abdominal discomfort, which is thought to be due to her neoplasia. She had no problems with constipation, fever, chills, nausea, vomiting, etc. She is doing well enough it is felt that she could go home on 05/14 and she will follow up in a few days. She will go home on light activity and her usual diet and medication. FINAL DIAGNOSES: 1. Left flank pain. 2. Urinary tract infection. 3. Carcinoma of the ovary. 4. Obstructed right ureter with ureterostomy. OPERATIONS: None. CONSULTATION: None. She is improved. MMODL / IJN: [id number] /
--- NOTE | 2019-05-20 09:32 | CDI ---
Documentation Clarification Form Date: 05/20/2019 08:06:00 AM From: Nina Daugherty Phone: If you have a question about this query, please contact Rima Arriaga Sales Training Representative at [phone] between 8am and 5pm. Admit Date: 05/09/2019 06:27:00 PM Patient Name: Jesusita Galloway Visit Number: [id number] Discharge Date: 05/14/2019 02:20:00 PM ATTENTION: The Clinical Documentation Specialists (CDI) and [facility] Coding Staff appreciate your assistance in clarifying documentation. Please respond to the clarification below the line at the bottom and electronically sign. The CDI & [facility] Coding staff will review the response and follow-up if needed. Please note: Queries are made part of the Legal Health Record. If you have any questions, please contact the author of this message via ITS. Dr. Kevin Metzger Conflicting documentation has been found in [facility]CS: "Patient thought to have LT ureteral obstruction. Final Diagnosis on DCS documents: Obstruction RT ureter with ureterostomy. Please clarify, did patient have a LT ureteral obstruction or RT ureteral obstruction. History/Risk Factors: Ovarian cancer In your opinion, what is the most clinically appropriate diagnosis for this patient? Left ureteral obstruction Right ureteral obstruction with ureterostomy Other explanation of clinical findings Unable to determine (no explanation for clinical findings) MTDD
--- NOTE | 2019-05-25 15:33 | MISC ---
MISCELLANOUS REPORT Right ureteral obstruction with ureterostomy. MMODL / IJN: [id number] /
--- NOTE | 2019-05-31 18:02 | MISC ---
MISCELLANOUS REPORT Left ureteral obstruction and other unexplained clinical findings, which would be carcinoma of the ovary. MMODL / IJN: [id number] /
== END 2019-05-14 14:20 | disposition home or self-care (01) | DRG 948 ==
LOC: EC 15:03 → 5NMEDONC 18:27
PROVIDERS: ADMIT Family Medicine; ATTEND Family Medicine
DX: G89.3 Neoplasm related pain (acute) (chronic) (principal); C56.9 Malignant neoplasm of unspecified ovary; N13.6 Pyonephrosis; C56.2 Malignant neoplasm of left ovary; N39.0 Urinary tract infection, site not specified; I10 Essential (primary) hypertension; T45.1X5A Adverse effect of antineoplastic and immunosuppressive drugs, initial encounter; D69.6 Thrombocytopenia, unspecified; Z80.1 Family history of malignant neoplasm of trachea, bronchus and lung; Z82.0 Family history of epilepsy and other diseases of the nervous system; Z83.3 Family history of diabetes mellitus; Z90.710 Acquired absence of both cervix and uterus; Z90.722 Acquired absence of ovaries, bilateral; Z93.6 Other artificial openings of urinary tract status; Z79.899 Other long term (current) drug therapy; Z88.5 Allergy status to narcotic agent; Z88.0 Allergy status to penicillin; Z88.8 Allergy status to other drugs, medicaments and biological substances; E83.42 Hypomagnesemia
CPT/HCPCS: 36415; 76700; 80048; 80053; 81001; 83735; 85025; 87077; 87086; 87186; 93005; 96361; 96365; 96375; 99213; 99285

== ENCOUNTER 2019-05-16 16:32 | Inpatient (IN) | payer MEDICARE ==
[2019-05-16] MEDS ORDERED: SODIUM CHLORIDE 0.9% 500 ML 500 ML IV STA (17:20)
[2019-05-16] MEDS ORDERED: HYDROmorphone 1 MG/ML 1 ML SYRINGE IVP STA ×2 (17:21→21:40)
[2019-05-16] MEDS ORDERED: ALPRAZolam 0.25 MG TAB PO STA (17:44)
--- NOTE | 2019-05-16 18:04 | XR ---
EXAMINATION TYPE: XR chest 2V DATE OF EXAM: 05/16/2019 COMPARISON: 03/21/2019 HISTORY: Dysrhythmia TECHNIQUE: 2 views FINDINGS: There is no heart failure nor confluent pneumonic infiltrate. Heart size is normal. There i s 3.5 cm masslike density at the left pulmonary hilum. There is right central venous catheter with th e tip in the superior vena cava. There is no pleural effusion. There are chest leads. IMPRESSION: No heart failure or pulmonary consolidation. There is developing masslike density at the left pulmonary hilum compared to previous chest x-rays and follow-up recommended. Tumor is possible.
[2019-05-16 18:35] LABS: Anisocytosis Slight; Basophils # (A) 0.1 k/uL (0-0.2); Basophils % (A) 1 %; Eosinophils # (A) 0.1 k/uL (0-0.7); Eosinophils % (A) 2 %; HCT 30.4 % (34.0-46.0); HGB 10.6 gm/dL (11.4-16.0); Lymphocytes # (A) 1.3 k/uL (1.0-4.8); Lymphocytes % (A) 31 %; MCH 32.2 pg (25.0-35.0); MCHC 34.8 g/dL (31.0-37.0); MCV 92.3 fL (80.0-100.0); Mean Platelet Volume 8.7; Monocytes # (A) 0.2 k/uL (0-1.0); Monocytes % (A) 6 %; Neutrophils # (A) 2.3 k/uL (1.3-7.7); Neutrophils % (A) 56 %; RDW 16.6 % (11.5-15.5)
[2019-05-16 18:40] LABS: INR 0.9 (<1.2); Partial Thromboplastin Time 24.6 sec (22.0-30.0); Prothrombin Time 10.2 sec (9.0-12.0)
[2019-05-16 18:41] LABS: Albumin 4.2 g/dL (3.5-5.0); Calcium 9.6 mg/dL (8.4-10.2); Magnesium 1.6 mg/dL (1.6-2.3); Potassium 3.9 mmol/L (3.5-5.1); Total Bilirubin 0.5 mg/dL (0.2-1.3); Total Protein 7.3 g/dL (6.3-8.2)
[2019-05-16 19:00] LABS: Platelet Count 48 k/uL (150-450)
[2019-05-16] MEDS ORDERED: ALPRAZolam 0.25 MG TAB PO PRN (21:47)
[2019-05-16] MEDS ORDERED: NALOXONE 0.4 MG/ML 1 ML VIAL IV PRN (21:47)
--- NOTE | 2019-05-16 21:48 | ED ---
General Adult HPI - General Source: patient, EMS, RN notes reviewed, old records reviewed Limitations: no limitations <Alejandro Eller - Last Filed: 05/16/19 21:55> <Jeannie Carballo - Last Filed: 05/19/19 04:52> - General Chief complaint: Arrhythmia/Palpitations Stated complaint: weakness Time Seen by Provider: 05/16/19 16:54 - History of Present Illness Initial comments: 63-year-old female patient presents to ED for chief complaint of heart palpitations. Patient reports that she is on chemotherapy orally for recurrence of metastatic ovarian cancer. Denies any chest pain or shortness of breath. Denies any leg pain. Does report chronic abdominal pain for which she takes Arcadia and Dilaudid. Denies any other complaints. Systemic: Pt denies fatigue, fever/chills, rash. Pt denies weakness, night sweats, weight loss. Neuro: Pt denies headache, visual disturbances, syncope or pre-syncope. HEENT: Pt denies ocular discharge or irritation, otalgia, rhinorrhea, pharyngitis or notable lymphadenopathy. Cardiopulmonary: Pt denies chest pain, SOB, heart palpitations, dyspnea on exertion. Abdominal/GI: Pt denies abdominal pain, n/v/d. : Pt denies dysuria, burning w/ urination, frequency/urgency. Denies new onset urinary or bowel incontinence. MSK: Pt denies myalgia, loss of strength or function in extremities. Neuro: Pt denies new onset weakness, paresthesias. (Alejandro Eller) - Related Data Home Medications Medication Instructions Recorded Confirmed Gabapentin [Neurontin] 300 mg PO DAILY 10/17/17 05/16/19 Esomeprazole Magnesium [NexIUM] 20 mg PO DAILY 07/12/18 05/16/19 Zolpidem [Ambien] 5 mg PO HS 09/14/18 05/16/19 Hydrocodone/Acetaminophen [Arcadia 1 tab PO QID PRN 10/04/18 05/16/19 5-325] Escitalopram [Lexapro] 20 mg PO DAILY 12/19/18 05/16/19 Folic Acid 0.4 mg PO DAILY 04/29/19 05/16/19 Niraparib Tosylate [Zejula] 200 mg PO HS 04/29/19 05/16/19 Ondansetron HCl [Zofran] 8 mg PO Q8H PRN 05/09/19 05/16/19 Prochlorperazine [Compazine] 10 mg PO TID PRN 05/09/19 05/16/19 Diltiazem HCl [Cardizem] 120 mg PO DAILY 05/16/19 05/16/19 Previous Rx's Medication Instructions Recorded Levofloxacin [Levaquin] 500 mg PO DAILY #10 tab 05/14/19 Magnesium Oxide [Mag-Ox] 400 mg PO TID #90 tab 05/14/19 Allergies Allergy/AdvReac Type Severity Reaction Status Date / Time adhesive Allergy Rash/Hives Verified 05/16/19 22:35 carboplatin Allergy Anaphylaxis Verified 05/16/19 22:35 ceftriaxone [From Rocephin] Allergy Itching Verified 05/16/19 22:35 iodine Allergy Rash/Hives Verified 05/16/19 22:35 Penicillins Allergy Rash/Hives Verified 05/16/19 22:35 codeine AdvReac Nausea & Verified 05/16/19 22:35 Vomiting morphine AdvReac Nausea & Verified 05/16/19 22:35 Vomiting Review of Systems ROS Other: All systems not noted in ROS Statement are negative. <Alejandro Eller - Last Filed: 05/16/19 21:55> ROS Other: All systems not noted in ROS Statement are negative. <Jeannie Carballo - Last Filed: 05/19/19 04:52> ROS Statement: Those systems with pertinent positive or pertinent negative responses have been documented in the HPI. Past Medical History Past Medical History: Cancer, Hypertension Additional Past Medical History / Comment(s): Ovarian cancer on PO chemo History of Any Multi-Drug Resistant Organisms: VRE Date of last positivie culture/infection: 01/26/18 MDRO Source:: urine Past Surgical History: Hysterectomy Additional Past Surgical History / Comment(s): Bilateral oopherectomy/hysterectomy, 2 open exploratory abdominal surgery, R chest mediport placed 2011, bilateral retrograde pyelogram cystoscopy with R ureter stent and stent exchanges, jaws have pins d/t surgery for TMJ, colonoscopy. Right nephrosotomy tube placement 12/31 (still in place). Past Anesthesia/Blood Transfusion Reactions: No Reported Reaction Additional Past Anesthesia/Blood Transfusion Reaction / Comment(s): Pt has received blood in past without reaction. Date of Last Stent Placement:: 2011 Past Psychological History: Anxiety, Depression Smoking Status: Never smoker Past Alcohol Use History: None Reported, Occasional Past Drug Use History: None Reported - Past Family History Mother Family Medical History: Cancer, Diabetes Mellitus Brother(s) Family Medical History: Cancer Additional Family Medical History / Comment(s): Lung cancer- since passed. Sister(s) Family Medical History: CVA/TIA Additional Family Medical History / Comment(s): 2 weeks ago. Father Family Medical History: Dementia, Neurologic Disorder Additional Family Medical History / Comment(s): Alzheimer's. <Alejandro Eller - Last Filed: 05/16/19 21:55> General Exam Limitations: no limitations <Alejandro Eller - Last Filed: 05/16/19 21:55> - General Exam Comments Initial Comments: Constitutional: NAD, AOX3, Pt has pleasant affect. HEENT: NC/AT, trachea midline, neck supple, no lymphadenopathy. Posterior pharynx non erythematous, without exudates. External ears appear normal, without discharge. Mucous membranes moist. Eyes PERRLA, EOM intact. There is no scleral icterus. No pallor noted. Cardiopulmonary: RRR, no murmurs, rubs or gallops, no JVD noted. Lungs CTAB in anterior and posterior zavaleta. No peripheral edema. Abdominal exam: Abdomen soft and non-distended. Abdomen non-tender to palpation in all 4 quadrants. Bowel sounds active in LLQ. No hepatosplenomegaly. No ecchymosis Neuro: CN II-XII intact. No nuchal rigidity. No raccon eyes, no contreras sign, no hemotympanum. No cervical spinal tenderness. MSK: No posterior calf tenderness bilaterally, homans sign negative bilaterally. Posterior tibialis and radial pulse +2 bilaterally. Sensation intact in upper and lower extremities. Full active ROM in upper and lower extremities, 5/5 stregnth. (Alejandro Eller) Course Vital Signs 05/16/19 05/16/19 05/16/19 16:50 18:30 20:25 Temperature 98.8 F Pulse Rate 110 H 95 101 H Respiratory 20 18 18 Rate Blood Pressure 153/93 138/83 154/92 O2 Sat by Pulse 96 98 98 Oximetry 05/16/19 22:30 Temperature 98.0 F Pulse Rate 105 H Respiratory 18 Rate Blood Pressure 160/98 O2 Sat by Pulse 95 Oximetry Medical Decision Making - Lab Data Result diagrams: 05/16/19 17:40 05/16/19 17:40 - EKG Data -: EKG Interpreted by Me <Alejandro Eller - Last Filed: 05/16/19 21:55> - Lab Data Result diagrams: 05/16/19 17:40 05/16/19 17:40 <Jeannie Carballo - Last Filed: 05/19/19 04:52> - Medical Decision Making 63-year-old female patient presents to ED for chief complaint of heart palpitations. Patient reports that she is on chemotherapy orally for recurrence of metastatic ovarian cancer. Denies any chest pain or shortness of breath. Denies any leg pain. Does report chronic abdominal pain for which she takes Arcadia and Dilaudid. Denies any other complaints. Patient will signs are stable, afebrile. Physical exam did not display acute pathology. Patient requiring multiple doses of analgesia due to abdominal pain which is chronic in nature. EKG nonischemic. Lymph investigations reveal platelets of 48 this is around baseline. Troponin negative. Chest x-ray displayed new masslike density left perihilar region. Patient will be admitted for intractable pain. Case discussed with Dr. Carballo. (Alejandro Eller) The patient was seen and evaluated history is obtained from the patient I agree with the mid-level provider's workup and disposition. I discussed patient care with her primary care physician Dr. Metzger who agrees with plan for admission and admission orders were placed. (Jeannie Carballo) - Lab Data Lab Results 05/16/19 05/16/19 05/16/19 Range/Units 17:40 17:40 17:40 WBC 4.0 (3.8-10.6) k/uL RBC 3.30 L (3.80-5.40) m/uL Hgb 10.6 L (11.4-16.0) gm/dL Hct 30.4 L (34.0-46.0) % MCV 92.3 (80.0-100.0) fL MCH 32.2 (25.0-35.0) pg MCHC 34.8 (31.0-37.0) g/dL RDW 16.6 H (11.5-15.5) % Plt Count 48 L (150-450) k/uL Neutrophils % 56 % Lymphocytes % 31 % Monocytes % 6 % Eosinophils % 2 % Basophils % 1 % Neutrophils # 2.3 (1.3-7.7) k/uL Lymphocytes # 1.3 (1.0-4.8) k/uL Monocytes # 0.2 (0-1.0) k/uL Eosinophils # 0.1 (0-0.7) k/uL Basophils # 0.1 (0-0.2) k/uL Manual Slide Review Performed Anisocytosis Slight PT 10.2 (9.0-12.0) sec INR 0.9 (<1.2) APTT 24.6 (22.0-30.0) sec Sodium 138 (137-145) mmol/L Potassium 3.9 (3.5-5.1) mmol/L Chloride 101 (98-107) mmol/L Carbon Dioxide 28 (22-30) mmol/L Anion Gap 9 mmol/L BUN 18 H (7-17) mg/dL Creatinine 1.00 (0.52-1.04) mg/dL Est GFR (CKD-EPI)AfAm 69 (>60 ml/min/1.73 sqM) Est GFR (CKD-EPI)NonAf 60 (>60 ml/min/1.73 sqM) Glucose 107 H (74-99) mg/dL Calcium 9.6 (8.4-10.2) mg/dL Magnesium 1.6 (1.6-2.3) mg/dL Total Bilirubin 0.5 (0.2-1.3) mg/dL AST 31 (14-36) U/L ALT 16 (4-34) U/L Alkaline Phosphatase 105 (38-126) U/L Troponin I (0.000-0.034) ng/mL Total Protein 7.3 (6.3-8.2) g/dL Albumin 4.2 (3.5-5.0) g/dL TSH 1.050 (0.465-4.680) mIU/L 05/16/19 Range/Units 17:40 WBC (3.8-10.6) k/uL RBC (3.80-5.40) m/uL Hgb (11.4-16.0) gm/dL Hct (34.0-46.0) % MCV (80.0-100.0) fL MCH (25.0-35.0) pg MCHC (31.0-37.0) g/dL RDW (11.5-15.5) % Plt Count (150-450) k/uL Neutrophils % % Lymphocytes % % Monocytes % % Eosinophils % % Basophils % % Neutrophils # (1.3-7.7) k/uL Lymphocytes # (1.0-4.8) k/uL Monocytes # (0-1.0) k/uL Eosinophils # (0-0.7) k/uL Basophils # (0-0.2) k/uL Manual Slide Review Anisocytosis PT (9.0-12.0) sec INR (<1.2) APTT (22.0-30.0) sec Sodium (137-145) mmol/L Potassium (3.5-5.1) mmol/L Chloride (98-107) mmol/L Carbon Dioxide (22-30) mmol/L Anion Gap mmol/L BUN (7-17) mg/dL Creatinine (0.52-1.04) mg/dL Est GFR (CKD-EPI)AfAm (>60 ml/min/1.73 sqM) Est GFR (CKD-EPI)NonAf (>60 ml/min/1.73 sqM) Glucose (74-99) mg/dL Calcium (8.4-10.2) mg/dL Magnesium (1.6-2.3) mg/dL Total Bilirubin (0.2-1.3) mg/dL AST (14-36) U/L ALT (4-34) U/L Alkaline Phosphatase (38-126) U/L Troponin I <0.012 (0.000-0.034) ng/mL Total Protein (6.3-8.2) g/dL Albumin (3.5-5.0) g/dL TSH (0.465-4.680) mIU/L - EKG Data EKG Comments: Ventricular rate 106, when necessary full 120, QRS 76, QT/QTC 358/475. Sinus tachycardia, otherwise normal EKG. (Alejandro Eller) Disposition Is patient prescribed a controlled substance at d/c from ED?: No <Alejandro Eller - Last Filed: 05/16/19 21:55> <Jeannie Carballo - Last Filed: 05/19/19 04:52> Clinical Impression: Intractable pain, Heart palpitations, Ovarian cancer Disposition: ADMITTED IP TO THIS HOSP Condition: Serious
--- NOTE | 2019-05-16 22:22 | XR ---
EXAMINATION TYPE: XR KUB DATE OF EXAM: 05/16/2019 COMPARISON: December 14, 2018 HISTORY: Abdominal pain TECHNIQUE: 2 views supine FINDINGS: There are numerous surgical clips over the mid and lower abdomen. There is no sign of intes tinal obstruction or pneumoperitoneum. There is a pigtail drainage catheter over the right upper quad rant. Lung bases are clear. There is gas down to the rectum. IMPRESSION: Nonacute abdomen. There is removal of the right ureteral stent compared to old exam.
[2019-05-17] MEDS: HYDROmorphone 1 MG/ML 1 ML SYRINGE IVP PRN ×5 (00:57→20:54)
[2019-05-17] MEDS: SODIUM CHLORIDE 0.9% 1,000 ML IV SCH ×2 (02:04→22:58)
[2019-05-17] MEDS: ONDANSETRON 4 MG/2 ML VIAL IVP PRN ×3 (03:41→20:56)
[2019-05-17] MEDS: DILTIAZEM CD 120 MG CAP.ER.24H PO SCH (03:55)
[2019-05-17] MEDS ORDERED: ACETAMINOPHEN TAB 325 MG TAB PO PRN (08:47)
[2019-05-17] MEDS ORDERED: ONDANSETRON HCL 8 MG PO PRN (09:04)
[2019-05-17] MEDS ORDERED: HYDROcodone/APAP 5-325MG 1 EACH TAB PO PRN (09:04)
[2019-05-17] MEDS ORDERED: PROCHLORPERAZINE 10 MG TAB PO PRN (09:04)
[2019-05-17] MEDS ORDERED: BARIUM SULFATE 450 ML ORAL.SUSP BOTTLE PO PRN ×2 (09:06→09:13)
[2019-05-17] MEDS: FOLIC ACID 1 MG TAB PO SCH (09:54)
[2019-05-17] MEDS: MAGNESIUM OXIDE 400 MG TAB PO SCH ×3 (09:55→22:57)
[2019-05-17] MEDS: LEVOFLOXACIN 500 MG TAB PO SCH (09:55)
[2019-05-17] MEDS: PANTOPRAZOLE 40 MG TABLET PO SCH (09:55)
[2019-05-17] MEDS: GABAPENTIN 300 MG CAP PO SCH (09:55)
[2019-05-17] MEDS: ESCITALOPRAM 20 MG TAB PO SCH (09:55)
[2019-05-17] MEDS ORDERED: ONDANSETRON 4 MG/2 ML VIAL IVP STA (12:58)
[2019-05-17] MEDS: diphenhydrAMINE 25 MG CAP PO PRN (17:12)
--- NOTE | 2019-05-17 17:12 | P.CONS ---
History of Present Illness - Reason for Consult Consult date: 05/17/19 ovarian cancer, on parp inhibitor Requesting physician: Alejandro Eller - Chief Complaint palpitations - History of Present Illness Mrs. Galloway is a very pleasant female patient of Dr. Hurtado with metastatic ovarian carcinoma diagnosed in about 2005. Patient has had multiple chemotherapy regimens and has had surgery. Patient has had frequent hospi talizations over the last couple of years for multitude of sequela secondary to her disease including chemo side effects and bowel obstruction. Currently patient is admitted with complaints of palpitations, x 1 day, persistent, denied syncopy or falls, it was making her feel anxious, short of breath, having a dry cough. No headache, vision changes, back pain, substernal/chest pain. On admit cardiac work up initiated, EKG showed sinus tachycardia, BP was significantly elevated, When I saw the patient she was vomiting barium for imaging, being performed due to her complaints of abdominal pain. Patient states no vomiting prior to vomiting the barium, she has stool that is watery with some solid stool noted. No black or bloody stool, persistent or progressive abd distension. She currently has a right percutaneous nephrostomy tube because of obstruction, she states that she does have adequate drainage, no blood or clots. No fevers, chills. She has been on zejula for about 3 weeks, she in on 200mg which is the middle dosing of the drug. Review of Systems 14 point review of systems is negative except as stated in HPI Past Medical History Past Medical History: Cancer, Hypertension Additional Past Medical History / Comment(s): Ovarian cancer on PO chemo History of Any Multi-Drug Resistant Organisms: ARPITE Year Discovered:: 01/26/18 MDRO Source:: urine Past Surgical History: Hysterectomy Additional Past Surgical History / Comment(s): Bilateral oopherectomy/hysterectomy, 2 open exploratory abdominal surgery, R chest mediport placed 2011, bilateral retrograde pyelogram cystoscopy with R ureter stent and stent exchanges, jaws have pins d/t surgery for TMJ, colonoscopy. Right nephrosotomy tube placement 12/31 (still in place). Past Anesthesia/Blood Transfusion Reactions: No Reported Reaction Additional Past Anesthesia/Blood Transfusion Reaction / Comm: Pt has received bl ood in past without reaction. Date of Last Stent Placement:: 2011 Past Psychological History: Anxiety, Depression Additional Psychological History / Comment(s): Single and lives independently. She has a dog named [employer]. She drives. She has used [email or web address] in the recent past. Retired. Smoking Status: Never smoker Past Alcohol Use History: None Reported, Occasional Additional Past Alcohol Use History / Comment(s): Patient is been a lifelong nonsmoker. She lives at home with a dog. Past Drug Use History: None Reported - Past Family History Mother Family Medical History: Cancer, Diabetes Mellitus Brother(s) Family Medical History: Cancer Additional Family Medical History / Comment(s): Lung cancer- since passed. Sister(s) Family Medical History: CVA/TIA Additional Family Medical History / Comment(s): 2 weeks ago. Father Family Medical History: Dementia, Neurologic Disorder Additional Family Medical History / Comment(s): Alzheimer's. Medications and Allergies Home Medications Medication Instructions Recorded Confirmed Type Gabapentin [Neurontin] 300 mg PO DAILY 10/17/17 05/16/19 History Esomeprazole Magnesium [NexIUM] 20 mg PO DAILY 07/12/18 05/16/19 History Zolpidem [Ambien] 5 mg PO HS 09/14/18 05/16/19 History Hydrocodone/Acetaminophen [Arvonia 1 tab PO QID PRN 10/04/18 05/16/19 History 5-325] Escitalopram [Lexapro] 20 mg PO DAILY 12/19/18 05/16/19 History Folic Acid 0.4 mg PO DAILY 04/29/19 05/16/19 History Niraparib Tosylate [Zejula] 200 mg PO HS 04/29/19 05/16/19 History Ondansetron HCl [Zofran] 8 mg PO Q8H PRN 05/09/19 05/16/19 History Prochlorperazine [Compazine] 10 mg PO TID PRN 05/09/19 05/16/19 History Levofloxacin [Levaquin] 500 mg PO DAILY #10 tab 05/14/19 05/16/19 Rx Magnesium Oxide [Mag-Ox] 400 mg PO TID #90 tab 05/14/19 05/16/19 Rx Diltiazem HCl [Cardizem] 120 mg PO DAILY 05/16/19 05/16/19 History Allergies Allergy/AdvReac Type Severity Reaction Status Date / Time adhesive Allergy Rash/Hives Verified 05/16/19 22:35 carboplatin Allergy Anaphylaxis Verified 05/16/19 22:35 ceftriaxone [From Rocephin] Allergy Itching Verified 05/16/19 22:35 iodine Allergy Rash/Hives Verified 05/16/19 22:35 Penicillins Allergy Rash/Hives Verified 05/16/19 22:35 codeine AdvReac Nausea & Verified 05/16/19 22:35 Vomiting morphine AdvReac Nausea & Verified 05/16/19 22:35 Vomiting Physical Exam Vitals: Vital Signs Temp Pulse Pulse Resp BP BP BP 05/17/19 11:09 94 16 165/77 05/17/19 08:52 114 H 152/102 05/17/19 08:49 112 H 140/109 05/17/19 04:00 98.8 F 132 H 16 187/100 05/17/19 00:00 98.4 F 102 H 16 138/88 05/16/19 22:30 98.0 F 105 H 18 160/98 05/16/19 20:25 101 H 18 154/92 05/16/19 18:30 95 18 138/83 05/16/19 16:50 98.8 F 110 H 20 153/93 Pulse Ox 05/17/19 11:09 98 05/17/19 08:52 05/17/19 08:49 05/17/19 04:00 93 L 05/17/19 00:00 96 05/16/19 22:30 95 05/16/19 20:25 98 05/16/19 18:30 98 05/16/19 16:50 96 Intake and Output 05/17/19 05/17/19 05/17/19 06:59 14:59 22:59 Intake Total 160 Balance 160 Intake: Intake, IV Titration 160 Amount Sodium Chloride 0.9% 1, 160 000 ml @ 20 mls/hr IV . Q24H [facility] Rx#:[id number] Other: Voiding Method Toilet Toilet Toilet # Voids 1 3 - Constitutional General appearance: average body habitus, cooperative, mild distress - EENT complete alopecia Eyes: anicteric sclerae, EOMI ENT: hearing grossly normal, normal oropharynx - Neck Neck: no lymphadenopathy - Respiratory Respiratory: bilateral: CTA - Cardiovascular tachycardia Heart sounds: normal: S1, S2 Abnormal Heart Sounds: no systolic murmur, no diastolic murmur, no rub, no S3 Gallop, no S4 Gallop, no click, no other leg Peripheral Edema: bilateral: None - Gastrointestinal General gastrointestinal: no absent bowel sounds, no decreased bowel sounds, no distended, no hepatomegaly, no hyperactive bowel sounds, normal bowel sounds, no organomegaly, no rigid, no scaphoid, soft, no splenomegaly, no tenderness, no umbilical hernia, no ventral hernia - Integumentary Integumentary: normal turgor, pale - Neurologic Neurologic: CNII-XII intact - Musculoskeletal Musculoskeletal: strength equal bilaterally - Psychiatric Psychiatric: A&O x's 3, appropriate affect, intact judgment & insight Results CBC & Chem 7: 05/16/19 17:40 05/16/19 17:40 Labs: Abnormal Lab Results - Last 24 Hours (Table) 05/16/19 05/16/19 Range/Units 17:40 17:40 RBC 3.30 L (3.80-5.40) m/uL Hgb 10.6 L (11.4-16.0) gm/dL Hct 30.4 L (34.0-46.0) % RDW 16.6 H (11.5-15.5) % Plt Count 48 L (150-450) k/uL BUN 18 H (7-17) mg/dL Glucose 107 H (74-99) mg/dL Abdominal x-ray: report reviewed Assessment and Plan (1) Heart palpitations Current Visit: Yes Status: Acute Priority: High Code(s): R00.2 - PALPITATIONS SNOMED Code(s): 22504856 (2) Bicytopenia Current Visit: Yes Status: Acute Priority: Medium Code(s): D75.89 - OTHER SPECIFIED DISEASES OF BLOOD AND BLOOD-FORMING ORGANS SNOMED Code(s): 07761794 (3) Ovarian cancer Current Visit: Yes Status: Chronic Priority: High Code(s): C56.9 - MALIG NANT NEOPLASM OF UNSPECIFIED OVARY SNOMED Code(s): 129478569 (4) Abdominal pain Current Visit: Yes Status: Chronic Priority: Medium Code(s): R10.9 - UNSPECIFIED ABDOMINAL PAIN SNOMED Code(s): 16174864 Plan: Patient is about 3 weeks into 1st cycle of parp inhibitor, nirparib. States she has a follow-up with Dr. Hurtado Monday of next week. She will keep that appt. Unfortunately, side effects related to parp inhibitors include arrhythmia, palpitations, hypertension and hematological toxicities. Looking back at platelet counts in this electronic medical record, in late April patient's platelet count was noted to be decreasing, it was noted to be normal earlier in mid April so, it is reasonable to conclude the patient's counts have dropped while on zejula. At this time zejula will be held. Cardiology consult recommended as management of cardiovascular problems could allow patient to be resumed on parp inhibitor once managed. She'll have her counts rechecked when she sees Dr. Hurtado on Monday and he determine how quickly she recovers after being held and when she can resume. No transfusions at this time. CBC daily Pending CT re: abd pain. Treatment decision will be made depending on findings
--- NOTE | 2019-05-17 18:11 | HP ---
HISTORY AND PHYSICAL CHIEF COMPLAINT: Lower abdominal pain and nausea. HISTORY OF PRESENT ILLNESS: This is another admission for this 63-year-old white female with CA of the ovary who just went home the other day. She was only home a day or two. She is now back in with increasing lower abdominal pain and nausea and vomiting. REVIEW OF SYSTEMS: She has had no neurologic problems, shortness of breath, chest pain, hematemesis, melena, hematochezia, fever and chills, etc. Past medical history, family history, personal and social histories are unchanged from her recent admitting summary. She is ALLERGIC to numerous medications. She has been getting chemotherapy through her oncologist in the [place] area, but she would like to get another opinion from our local oncologist here. She lives alone. This probably cannot be sustained much longer. PHYSICAL EXAMINATION: Temperature 97.5, respirations of 36, pulse is 104, blood pressure is 110/58. In general, she appeared to be pale and chronically ill. Head, ears, eyes, nose, mouth, and throat were normal. Chest is clear. Cardiac exam demonstrates sinus rhythm. Abdomen soft, but she had firmness throughout the lower quadrants of the abdomen with generalized tenderness. Bowel sounds are heard. She has a right ureterostomy tube in the right flank. Extremities: Normal. Neurologically she is intact. IMPRESSION: She is admitted to hospital with a diagnoses of 1. Intractable abdominal pain from carcinoma of the ovary. 2. Intractable nausea and vomiting. 3. Hypertension. PLAN: 1. IV fluids. 2. Control hypertension. 3. Refer to Oncology. 4. Consider palliative care or hospice. 5. CT the chest to look at a new lung nodule. MMODL / IJN: [id number] /
--- NOTE | 2019-05-17 19:05 | PN ---
PROGRESS NOTE CHIEF COMPLAINT: Abdominal pain and carcinoma of the ovary. HISTORY OF PRESENT ILLNESS: This lady is still having quite a bit of difficulty with lower abdominal pain and this is likely related entirely to her neoplasm. She wants to see the oncologist here to see if anything else can be done. There is also apparently a new nodular mass in the right lung and this will be investigated. PHYSICAL EXAMINATION: She is pale and chronically ill. Chest is clear. Cardiac exam is normal. The abdomen is tender in the lower quadrants where she has extensive tumor mass. Right flank ureterostomy tube is draining. IMPRESSION: 1. Metastatic ovarian carcinoma. 2. Right lung mass. 3. Intractable tumor pain. 4. Obstruction of the right ureter. 5. Elevated blood pressure. 6. Sinus tachycardia. PLAN: 1. Oncology consult. 2. CT of the chest. 3. Control hypertension. 4. Consider hospice or palliative care. JIMMIE / JULIANA: [id number] /
[2019-05-17] MEDS ORDERED: NIRAPARIB TOSYLATE PO SCH (21:00)
--- NOTE | 2019-05-17 22:51 | CT ---
"EXAMINATION TYPE: CT ChestAbdPelvis wo con DATE OF EXAM: 05/17/2019 INDICATION: Abdominal pain, nausea, vomiting and spot on lung. COMPARISON: 03/21/2019 CT DLP: 1202 mGycm CONTRAST: Performed without Oral Contrast or venous contrast TECHNIQUE: Axial images at 5 mm thick sections. Reconstructed images in the coronal plane. Delayed images through the kidneys. FINDINGS: CT CHEST: Portion of the thyroid visualized is normal. No suspicious lung nodules or focal infiltrates are present. There is an enlarged pretracheal lymph node measuring 1.4 cm. There is a large mass adjacent to the a ortic arch measuring 3.3 x 4.4 cm. No retrocrural adenopathy is identified. There is a punctate density on lung windows in the lateral right lung. Series 3 image 30 The ascending aorta diameter at the level of the main pulmonary artery is 3.7 cm. The main pulmonary artery diameter at the bifurcation is 2.[address] ABDOMEN: Liver: Normal Spleen: Normal Pancreas: Atrophic Adrenal glands: The adrenal glands are normal. Gallbladder: Surgically absent Kidneys: No masses are evident. No hydronephrosis is present. No cysts are present. No renal stone s are evident. There is nephrostomy tube on the right. Aorta: Vascular calcification is within the aorta. Inferior vena cava: Normal. CT PELVIS: Loops of bowel within the abdomen and pelvis are normal. Study is without oral contrast limiting bowel evaluation. No obstruction is evident. Within the mid mesentery there is a fluid collection measuring 3.3 x 2.5 cm. This does not appear to be portion of bowel. Mesenteric abscess could be considered. Series 3 image 86, series 5 image 28 Appendix: Not identified. Fluid is in the right lower quadrant. Clinical management of any suspected appendicitis will be required. Urinary bladder: Normal. Genitourinary structures: Uterus and ovaries are not identified. Osseous structures: No suspicious lytic or sclerotic lesions. Some degenerative facet changes are pre sent. IMPRESSIONS: 1. Fluidlike collection within the mid mesentery. Correlate for abscess. 2. Enlarged mediastinal lymph nodes and/or a left superior mediastinal mass. Workup for neoplasm is r ecommended. Consider PET CT for additional evaluation. 3. There is some fluid in the right lower quadrant with nonvisualization of the appendix. Clinical ma nagement of any suspected appendicitis will be required. A [place] level critical message alert has been initiated for Kevin Metzger MD via the [facility] | Critical Results System on 05/17/2019 10:48 PM. This message alert has been sent to Jade Metzger MD via the preferences provided by the clinician for the receipt of Radiology Critical F indings. Message ID [id number]."
[2019-05-17] MEDS: ZOLPIDEM 5 MG TAB PO SCH (22:57)
[2019-05-18] MEDS: ONDANSETRON 4 MG/2 ML VIAL IVP PRN ×3 (08:42→22:58)
[2019-05-18] MEDS: ESCITALOPRAM 20 MG TAB PO SCH (08:43)
[2019-05-18] MEDS: PANTOPRAZOLE 40 MG TABLET PO SCH (08:43)
[2019-05-18] MEDS: LEVOFLOXACIN 500 MG TAB PO SCH (08:43)
[2019-05-18] MEDS: DILTIAZEM CD 120 MG CAP.ER.24H PO SCH (08:43)
[2019-05-18] MEDS: GABAPENTIN 300 MG CAP PO SCH (08:43)
[2019-05-18] MEDS: FOLIC ACID 1 MG TAB PO SCH (08:43)
[2019-05-18] MEDS: MAGNESIUM OXIDE 400 MG TAB PO SCH ×3 (08:43→22:58)
[2019-05-18] MEDS: HYDROmorphone 1 MG/ML 1 ML SYRINGE IVP PRN ×4 (09:25→21:41)
--- NOTE | 2019-05-18 19:00 | PN ---
PROGRESS NOTE CHIEF COMPLAINT: Advancing carcinoma of the ovary. HISTORY OF PRESENT ILLNESS: This lady is now starting to have some nausea and vomiting. She has not been seen by discharge planning. She has been seen by Oncology and a CT has been ordered. PHYSICAL EXAMINATION: She remains pale and dehydrated. Chest is clear. Cardiac exam is normal. Abdomen is soft and nontender except for in the lower abdomen. IMPRESSION: 1. Intractable pain from carcinoma of the ovary. 2. Nausea and vomiting. 3. Dehydration. 4. Malnutrition. PLAN: 1. Await results of CT. 2. In the meantime continue antiemetics and analgesics. MMODL / IJN: [id number] /
[2019-05-18] MEDS: ZOLPIDEM 5 MG TAB PO SCH (22:58)
[2019-05-19] MEDS: SODIUM CHLORIDE 0.9% 1,000 ML IV SCH ×2 (03:21→22:59)
[2019-05-19] MEDS: HYDROmorphone 1 MG/ML 1 ML SYRINGE IVP PRN ×4 (03:37→20:34)
[2019-05-19] MEDS: MAGNESIUM OXIDE 400 MG TAB PO SCH ×3 (10:10→20:34)
[2019-05-19] MEDS: ESCITALOPRAM 20 MG TAB PO SCH (10:10)
[2019-05-19] MEDS: PANTOPRAZOLE 40 MG TABLET PO SCH (10:10)
[2019-05-19] MEDS: GABAPENTIN 300 MG CAP PO SCH (10:10)
[2019-05-19] MEDS: FOLIC ACID 1 MG TAB PO SCH (10:10)
[2019-05-19] MEDS: LEVOFLOXACIN 500 MG TAB PO SCH (10:11)
[2019-05-19] MEDS: DILTIAZEM CD 120 MG CAP.ER.24H PO SCH (10:11)
[2019-05-19] MEDS: diphenhydrAMINE 25 MG CAP PO PRN ×2 (10:56→21:07)
--- NOTE | 2019-05-19 14:56 | PN ---
PROGRESS NOTE CHIEF COMPLAINT: Lower abdominal pain and carcinoma of the ovary. HISTORY OF PRESENT ILLNESS: This lady is doing a little bit better. Pain is under better control. CT was ordered by Oncology and this is pending. Problem now is going to be where she is going to go when she leaves the hospital. She cannot function alone any longer. PHYSICAL EXAMINATION: Chest is clear. Cardiac exam is normal. Abdomen is soft and not extremely tender. The lower abdominal fullness is still present. IMPRESSION: 1. Advancing carcinoma of the ovary. 2. Intractable pain. 3. Intractable nausea and vomiting. PLAN: Await recommendations from Oncology and then work on her discharge plan. MMODL / IJN: [id number] /
[2019-05-19] MEDS: ONDANSETRON 4 MG/2 ML VIAL IVP PRN (16:12)
[2019-05-19] MEDS: ZOLPIDEM 5 MG TAB PO SCH (22:59)
[2019-05-20] MEDS: HYDROmorphone 1 MG/ML 1 ML SYRINGE IVP PRN ×5 (01:53→21:51)
[2019-05-20] MEDS: DILTIAZEM CD 120 MG CAP.ER.24H PO SCH (07:44)
[2019-05-20] MEDS: PANTOPRAZOLE 40 MG TABLET PO SCH (07:45)
[2019-05-20] MEDS: ESCITALOPRAM 20 MG TAB PO SCH (07:45)
[2019-05-20] MEDS: LEVOFLOXACIN 500 MG TAB PO SCH (07:45)
[2019-05-20] MEDS: FOLIC ACID 1 MG TAB PO SCH (07:45)
[2019-05-20] MEDS: GABAPENTIN 300 MG CAP PO SCH (07:45)
[2019-05-20] MEDS: MAGNESIUM OXIDE 400 MG TAB PO SCH ×3 (07:45→22:34)
[2019-05-20 10:16] LABS: Anisocytosis Slight; Basophils % (A) 1 %; Eosinophils # (A) 0.1 k/uL (0-0.7); Eosinophils % (A) 2 %; HCT 29.1 % (34.0-46.0); HGB 9.9 gm/dL (11.4-16.0); Lymphocytes # (A) 0.9 k/uL (1.0-4.8); Lymphocytes % (A) 29 %; MCH 31.9 pg (25.0-35.0); MCHC 34.2 g/dL (31.0-37.0); MCV 93.4 fL (80.0-100.0); Mean Platelet Volume 9.9; Monocytes # (A) 0.1 k/uL (0-1.0); Monocytes % (A) 5 %; Neutrophils # (A) 1.8 k/uL (1.3-7.7); Neutrophils % (A) 61 %; RBC 3.11 m/uL (3.80-5.40); RDW 16.2 % (11.5-15.5); WBC 2.9 k/uL (3.8-10.6)
[2019-05-20] MEDS: ONDANSETRON 4 MG/2 ML VIAL IVP PRN (10:43)
[2019-05-20 11:18] LABS: Platelet Count 22 k/uL (150-450)
[2019-05-20] MEDS: diphenhydrAMINE 25 MG CAP PO PRN (11:58)
--- NOTE | 2019-05-20 13:51 | PN ---
PROGRESS NOTE CHIEF COMPLAINT: Carcinoma of the ovary. HISTORY OF PRESENT ILLNESS: This lady is doing fairly well and still has the lower abdominal discomfort and other than that she has been stable. We are awaiting any further recommendations from Oncology. She feels that she has her discharge plan worked out and has a place to go. PHYSICAL EXAMINATION: She remains pale and chronically ill in appearance. The chest is clear and cardiac exam is normal. IMPRESSION: 1. Intractable abdominal pain. 2. Carcinoma of the ovary. 3. Right ureteral obstruction with ureterostomy. PLAN: Await recommendations from Oncology. If montrell had nothing further to offer, she could probably go home today or tomorrow. MMODL / IJN: [id number] /
--- NOTE | 2019-05-20 19:16 | P.PN ---
Subjective Progress Note Date: 05/20/19 Principal diagnosis: palpitations In follow-up today patient is laying in bed, she states her abd pain is at baseline, no fever, nausea, vomiting, her bowel fluctuate from diarrhe a/constipation, no BM yesterday or today yet. Objective - Vital Signs Vital signs: Vital Signs Temp 99 F 05/20/19 11:58 Pulse 116 H 05/20/19 14:56 Resp 17 05/20/19 14:56 BP 161/89 05/20/19 11:58 Pulse Ox 96 05/20/19 11:58 Intake & Output 05/19/19 05/20/19 05/20/19 18:59 06:59 18:59 Intake Total 672 028 3082 Output Total 200 Balance 031 739 9397 Intake: Intake, IV Titration 180 240 Amount Sodium Chloride 0.9% 1, 180 240 000 ml @ 20 mls/hr IV . Q24H CARMENZA Rx#:[id number] Oral 679 518 1710 Output: Drainage 200 Right nephrostomy tube 200 Other: Voiding Method Toilet Toilet Toilet # Voids 3 2 3 - Constitutional General appearance: Present: average body habitus, cooperative, no acute distress - EENT Eyes: Present: anicteric sclerae, EOMI ENT: Present: hearing grossly normal - Respiratory Respiratory: bilateral: CTA - Cardiovascular Details: tachycardia Heart sounds: normal: S1, S2 - Peripheral edema leg Peripheral Edema: bilateral: None - Gastrointestinal General gastrointestinal: Present: normal bowel sounds, soft. Absent: absent bowel sounds, decreased bowel sounds, distended, hepatomegaly, hyperactive bowel sounds, organomegaly, rigid, scaphoid, splenomegaly, tenderness, umbilical hernia, ventral hernia - Neurologic Neurologic: Present: CNII-XII intact - Musculoskeletal Musculoskeletal: Present: strength equal bilaterally - Psychiatric Psychiatric: Present: A&O x's 3, appropriate affect, intact judgment & insight - Labs CBC & Chem 7: 05/20/19 09:48 05/16/19 17:40 Labs: Abnormal Lab Results - Last 24 Hours (Table) 05/20/19 Range/Units 09:48 WBC 2.9 L (3.8-10.6) k/uL RBC 3.11 L (3.80-5.40) m/uL Hgb 9.9 L (11.4-16.0) gm/dL Hct 29.1 L (34.0-46.0) % RDW 16.2 H (11.5-15.5) % Plt Count 22 L D (150-450) k/uL Lymphocytes # 0.9 L (1.0-4.8) k/uL - Imaging and Cardiology CT scan - abdomen: report reviewed CT scan - pelvis: report reviewed Assessment and Plan (1) Heart palpitations Narrative/Plan: HR and BP have decreased somewhat since discontinuation of zejula. Pt will continue off of parp inhibitor Current Visit: Yes Status: Acute Priority: High Code(s): R00.2 - PALPITATIONS SNOMED Code(s): 15724351 (2) Ovarian cancer Narrative/Plan: We discussed the medistinal mass and LN on CT. Have requested CD of scan for pt to take with her to see Dr. Hurtado. Have faxed the report, consult note and labs to Dr. Hurtado. I told pt that she had progressive disease or she would not have been started on a new treatment it is just that I do not have any scans from [facility] to refer to so, I do not know if the medistinal findings are new or old, larger or smaller. A lso, she only has been on treatment for about 3 weeks, this will not have induced much change in her malignancy. She will f/u with Dr. Hurtado for further treatment plans, she thinks he wanted to do chemo with carbo/taxol. Current Visit: Yes Status: Chronic Priority: High Code(s): C56.9 - MA LIGNANT NEOPLASM OF UNSPECIFIED OVARY SNOMED Code(s): 566569171 (3) Abdominal pain Narrative/Plan: Baseline per pt. We reviewed CT AP showing some fluid pockets, possibly abscess. Pt is on abx, no fevers, defer to Attending. Current Visit: Yes Status: Chronic Priority: Medium Code(s): R10.9 - UNSPECIFIED ABDOMINAL PAIN SNOMED Code(s): 61124007 (4) Pancytopenia due to chemotherapy Narrative/Plan: All counts low on CBC today. No transfusions needed today. CBC in AM. Transfuse to keep Hgb 7or >, platelets if <10k of symptomatic-no ASA, NSAIDs, anticoagulation, no GCSF yet, ANC still adequate at 1.8. Oral treatment held Current Visit: Yes Status: Acute Priority: High Code(s): D61.810 - ANTINEOPLASTIC CHEMOTHERAPY INDUCED PANCYTOPENIA SNOMED Code(s): 8363580
[2019-05-20] MEDS: ZOLPIDEM 5 MG TAB PO SCH (22:34)
[2019-05-20] MEDS: SODIUM CHLORIDE 0.9% 1,000 ML IV SCH (23:29)
[2019-05-21] MEDS: HYDROmorphone 1 MG/ML 1 ML SYRINGE IVP PRN ×2 (01:57→09:56)
[2019-05-21] MEDS: diphenhydrAMINE 25 MG CAP PO PRN (01:58)
[2019-05-21 04:55] VITALS: BP 120/75; PULSE 100; RESP 16; TEMP 98.9
[2019-05-21] MEDS: GABAPENTIN 300 MG CAP PO SCH (08:30)
[2019-05-21] MEDS: FOLIC ACID 1 MG TAB PO SCH (08:30)
[2019-05-21] MEDS: LEVOFLOXACIN 500 MG TAB PO SCH (08:30)
[2019-05-21] MEDS: MAGNESIUM OXIDE 400 MG TAB PO SCH (08:30)
[2019-05-21] MEDS: PANTOPRAZOLE 40 MG TABLET PO SCH (08:31)
[2019-05-21] MEDS: ESCITALOPRAM 20 MG TAB PO SCH (08:31)
[2019-05-21] MEDS: DILTIAZEM CD 120 MG CAP.ER.24H PO SCH (08:31)
--- NOTE | 2019-05-21 09:43 | CDI ---
Documentation Clarification Form Date: 05/21/2019 09:35:00 AM From: Jennifer Foster RN, CCDS Admit Date: 05/18/2019 02:26:00 PM Patient Name: Jesusita Galloway Visit Number: [id number] ATTENTION: The Clinical Documentation Specialists (CDI) and [facility] Coding Staff appreciate your assistance in clarifying documentation. Please respond to the clarification below the line at the bottom and electronically sign. The CDI & [facility] Coding staff will review the response and follow-up if needed. Please note: Queries are made part of the Legal Health Record. If you have any questions, please contact the author of this message via ITS. Dr. Kevin Metzger Malnutrition has been documented in attending progress notes on 05/18 and requires further specificity. History/Risk Factors: Ovarian cancer Clinical Indicators: Current BMI: 24.2 Insufficient energy intake: intractable n/v in ovarian cancer C/o generalized weakness Treatment: Dietary Consult: not ordered Supplements: not ordered Lab monitoring: per MD Orders In your professional opinion, can you please clarify if these findings signify one of the following conditions? Mild Protein-Calorie Malnutrition Moderate Protein-Calorie Malnutrition Severe Protein-Calorie Malnutrition Other condition, please specify Unable to determine (Last Revision: November 2018) MTDD
[2019-05-21] MEDS: ONDANSETRON 4 MG/2 ML VIAL IVP PRN (09:51)
--- NOTE | 2019-05-22 05:21 | DS ---
DISCHARGE SUMMARY CHIEF COMPLAINT: Abdominal pain and advancing carcinoma of the ovary. HISTORY OF PRESENT ILLNESS AND PHYSICAL EXAM: Details of this lady's history and physical can be found in the initial workup. LABORATORY STUDIES: While she was in the hospital she had laboratory studies, details of which can be found in the laboratory section of her chart. COURSE IN THE HOSPITAL: After admission she was placed on bedrest, started on intravenous fluids and analgesics. There was a possibility of a new mass in the right side of her chest and she was seen by Oncology. They felt that she should continue her treatments with her current oncologist. A CT of the chest and abdomen did suggest possibility of intraabdominal mass which was thought to possibly be an abscess, but this was not consistent with her clinical picture. She was doing fairly well and Oncology agreed that she could be released to outpatient management and she will be seeing her oncologist in the next day or 2. FINAL DIAGNOSES: 1. Intractable abdominal pain. 2. Advancing ovarian carcinoma. 3. Obstructive right ureteropathy. 4. Anemia. 5. Right pulmonary mass. OPERATIONS: None. CONSULTATIONS: Oncology. She is improved. MMODL / IJN: [id number] /
--- NOTE | 2019-05-25 15:33 | MISC ---
MISCELLANOUS REPORT Moderate protein-calorie malnutrition. MMODL / IJN: [id number] /
== END 2019-05-21 11:30 | disposition home or self-care (01) | DRG 947 ==
LOC: EC 16:32 → 5NMEDONC 22:09 → OBSVTOIN 05-18 14:26
PROVIDERS: ADMIT Family Medicine; ATTEND Family Medicine
DX: G89.3 Neoplasm related pain (acute) (chronic) (principal); D61.810 Antineoplastic chemotherapy induced pancytopenia; C56.9 Malignant neoplasm of unspecified ovary; E44.0 Moderate protein-calorie malnutrition; N13.5 Crossing vessel and stricture of ureter without hydronephrosis; E86.0 Dehydration; I10 Essential (primary) hypertension; T45.1X5A Adverse effect of antineoplastic and immunosuppressive drugs, initial encounter; F32.9 Major depressive disorder, single episode, unspecified; F41.9 Anxiety disorder, unspecified; R11.2 Nausea with vomiting, unspecified; R91.8 Other nonspecific abnormal finding of lung field; R00.0 Tachycardia, unspecified; R00.2 Palpitations; Z68.24 Body mass index [BMI] 24.0-24.9, adult; Z79.899 Other long term (current) drug therapy; Z90.710 Acquired absence of both cervix and uterus; Z90.722 Acquired absence of ovaries, bilateral; Z88.1 Allergy status to other antibiotic agents; Z91.041 Radiographic dye allergy status; Z88.5 Allergy status to narcotic agent; Z88.0 Allergy status to penicillin; Z91.048 Other nonmedicinal substance allergy status; Z80.1 Family history of malignant neoplasm of trachea, bronchus and lung; Z82.0 Family history of epilepsy and other diseases of the nervous system; Z83.3 Family history of diabetes mellitus
CPT/HCPCS: 36415; 71046; 71250; 74018; 74176; 80053; 83735; 84443; 84484; 85025; 85610; 85730; 93005; 96361; 96374; 96376; 99213; 99285

== ENCOUNTER 2019-05-27 14:37 | Day surgery (SDC) | payer MEDICARE ==
[2019-05-27 16:12] VITALS: BP 146/66; PULSE 103; RESP 16; TEMP 98
== END 2019-05-27 16:13 | disposition home or self-care (01) ==
LOC: RADPROMAIN 14:37
PROVIDERS: ATTEND Radiology Diagnostic Radiology
DX: Z43.6 Encounter for attention to other artificial openings of urinary tract (principal); Z48.01 Encounter for change or removal of surgical wound dressing
CPT/HCPCS: 99213

== ENCOUNTER 2019-06-03 15:03 | Day surgery (SDC) | payer MEDICARE ==
[2019-06-03 15:27] VITALS: BP 135/60; PULSE 89; RESP 20; TEMP 98
== END 2019-06-03 15:50 | disposition home or self-care (01) ==
LOC: RADPROMAIN 15:03
PROVIDERS: ATTEND Radiology Diagnostic Radiology
DX: Z48.03 Encounter for change or removal of drains (principal)
CPT/HCPCS: 99213

== ENCOUNTER 2019-06-06 11:25 | Observation (INO) | payer MEDICARE ==
[2019-06-06] MEDS ORDERED: METOCLOPRAMIDE 5 MG/ML 2 ML VIAL IVP STA (12:48)
[2019-06-06] MEDS ORDERED: HYDROmorphone 0.5 MG/0.5 ML SYRINGE IVP STA (12:48)
[2019-06-06] MEDS ORDERED: SODIUM CHLORIDE 0.9% 1,000 ML IV STA (12:48)
--- NOTE | 2019-06-06 14:05 | ED ---
Nausea/Vomiting/Diarrhea HPI - General Chief complaint: Nausea/Vomiting/Diarrhea Stated complaint: Nausea, vomiting Time Seen by Provider: 06/06/19 11:35 Source: patient, EMS Mode of arrival: EMS Limitations: no limitations - History of Present Illness Initial comments: The patient is a 63-year-old female with history of ovarian cancer currently on oral chemo who presents to the emergency room with reported nausea and vomiting that started last night. She also admits to left-sided chest wall pain. States that her last chemo treatment was approximately 2 weeks ago. She states that it was increasing her blood pressure and so they did take her off for a temporary period of time. She sees Dr. Hurtado out of [facility] in [place]. She was diagnosed in 2005. She has a urostomy tube on the right because of compression from the tumor. States that she has vomited 10 times since last night. Denies hematochezia. No reported fevers. Does admit to chills. Denies any abdominal pain. No changes in her bowel or bladder habits. Denies a history of DVT or PE. No shortness of breath. No anterior chest pain. Is taking the remainder of her medications as directed. She does have Zofran at home however states she did not take one prior to coming into the emergency department. She denies ripping or tearing sensation to her back. There are no alleviating, precipitating or factors - Related Data Home Medications Medication Instructions Recorded Confirmed Gabapentin [Neurontin] 300 mg PO TID 10/17/17 06/08/19 Zolpidem [Ambien] 5 mg PO HS 09/14/18 06/08/19 Hydrocodone/Acetaminophen [[place] 1 tab PO QID PRN 10/04/18 06/08/19 5-325] Escitalopram [Lexapro] 20 mg PO DAILY 12/19/18 06/08/19 Folic Acid 0.4 mg PO DAILY 04/29/19 06/08/19 Ondansetron HCl [Zofran] 8 mg PO Q8H PRN 05/09/19 06/08/19 Prochlorperazine [Compazine] 10 mg PO TID PRN 05/09/19 06/08/19 Diltiazem HCl [Cardizem] 120 mg PO DAILY 05/16/19 06/08/19 Esomeprazole Magnesium [NexIUM 20 mg PO DAILY 06/06/19 06/08/19 24Hr] Previous Rx's Medication Instructions Recorded Magnesium Oxide [Mag-Ox] 400 mg PO TID #90 tab 05/14/19 Levofloxacin [Levaquin] 500 mg PO DAILY #10 tab 05/21/19 Mirtazapine [Remeron] 15 mg PO HS #30 tab 06/12/19 Pantoprazole [Protonix] 40 mg PO DAILY #30 tablet. 06/12/19 Allergies Allergy/AdvReac Type Severity Reaction Status Date / Time adhesive Allergy Rash/Hives Verified 06/08/19 21:58 carboplatin Allergy Anaphylaxis Verified 06/08/19 21:58 ceftriaxone [From Rocephin] Allergy Itching Verified 06/08/19 21:58 iodine Allergy Rash/Hives Verified 06/08/19 21:58 Penicillins Allergy Rash/Hives Verified 06/08/19 21:58 codeine AdvReac Nausea & Verified 06/08/19 21:58 Vomiting morphine AdvReac Nausea & Verified 06/08/19 21:58 Vomiting Review of Systems ROS Statement: Those systems with pertinent positive or pertinent negative responses have been documented in the HPI. ROS Other: All systems not noted in ROS Statement are negative. Past Medical History Past Medical History: Cancer, Hypertension Additional Past Medical History / Comment(s): Ovarian cancer on PO chemo History of Any Multi-Drug Resistant Organisms: VRE Date of last positivie culture/infection: 01/26/18 MDRO Source:: urine Past Surgical History: Hysterectomy Additional Past Surgical History / Comment(s): Bilateral oopherectomy/hysterectomy, 2 open exploratory abdominal surgery, R chest mediport placed 2011, bilateral retrograde pyelogram cystoscopy with R ureter stent and stent exchanges, jaws have pins d/t surgery for TMJ, colonoscopy. Right nephrosotomy tube placement 12/31 (still in place). Past Anesthesia/Blood Transfusion Reactions: No Reported Reaction Additional Past Anesthesia/Blood Transfusion Reaction / Comment(s): Pt has received blood in past without reaction. Date of Last Stent Placement:: 2011 Past Psychological History: Anxiety, Depression Smoking Status: Never smoker Past Alcohol Use History: Occasional Past Drug Use History: None Reported - Past Family History Mother Family Medical History: Cancer, Diabetes Mellitus Brother(s) Family Medical History: Cancer Additional Family Medical History / Comment(s): Lung cancer- since passed. Sister(s) Family Medical History: CVA/TIA Additional Family Medical History / Comment(s): 2 weeks ago. Father Family Medical History: Dementia, Neurologic Disorder Additional Family Medical History / Comment(s): Alzheimer's. General Exam Limitations: no limitations General appearance: alert, other (weak) Eye exam: Present: PERRL, EOMI ENT exam: Present: mucous membranes dry, TM's normal bilaterally Neck exam: Present: normal inspection. Absent: tenderness, meningismus Respiratory exam: Present: normal lung sounds bilaterally, chest wall tenderness. Absent: respiratory distress, decreased breath sounds Cardiovascular Exam: Present: normal rhythm, tachycardia GI/Abdominal exam: Present: soft, tenderness (generalized). Absent: distended, guarding, rebound, rigid Extremities exam: Present: normal inspection, full ROM, normal capillary refill. Absent: tenderness, pedal edema, joint swelling, calf tenderness Back exam: Present: normal inspection Neurological exam: Present: alert, oriented X3 Psychiatric exam: Present: flat affect Skin exam: Present: warm, dry, intact, normal color. Absent: rash Course Vital Signs 06/06/19 06/06/19 06/06/19 11:35 14:12 17:00 Temperature 98.6 F 98.1 F Pulse Rate 108 H 94 80 Respiratory 18 18 18 Rate Blood Pressure 145/68 135/62 126/74 O2 Sat by Pulse 95 96 98 Oximetry Medical Decision Making - Medical Decision Making Upon arrival the patient is placed into room 22. A thorough history and physical exam was performed. We did access the patient's port and gave her a liter bolus of normal saline. She was noted to be tachycardic and therefore 12- lead EKG was performed. I did provide her with a dose of Reglan for nausea. She is also requesting something for pain control and was given a dose of Dilaudid she is ALLERGIC to morphine. Laboratory studies were conducted and the patient was sent for an x-ray of her ribs. She refused CT as she can not have c ontrast and has had several CT scans in the recent past. Lab studies demonstrated a hemoglobin 10.7. Glucose 132. Urinalysis shows small leukocyte esterase, 18 white blood cells, rare bacteria. Patient does admit to mild pressure with urination and therefore did obtain blood cultures and give the patient a dose of Levaquin. She is ALLERGIC to penicillins and Rocephin. Influenza A and B are negative. Left rib x-ray mistreats a left hilar mass and BSN or adenopathy. This was seen on previous scan in March. I discussed this with the patient she is aware of the abnormal findings on her lung. Her heart rate is much improved at this time. She is requesting a dose of pain medication and for she is given a second dose of Dilaudid. I discussed diagnosis, differential and treatment options. She states she still feels nauseated and weak. She is then given a dose of Zofran. I recommended hospital admission for continued fluid hydration and antiemetics. I called and discussed the case with Dr. Metzger who accepted admission for the patient. She agreed to the treatment plan and was transferred to the floor in stable condition - Lab Data Result diagrams: 06/06/19 13:31 06/06/19 13:31 Lab Results 06/06/19 06/06/19 06/06/19 Range/Units 13:05 13:31 13:31 WBC 4.9 (3.8-10.6) k/uL RBC 3.43 L (3.80-5.40) m/uL Hgb 10.7 L (11.4-16.0) gm/dL Hct 33.0 L (34.0-46.0) % MCV 96.2 (80.0-100.0) fL MCH 31.2 (25.0-35.0) pg MCHC 32.4 (31.0-37.0) g/dL RDW 17.1 H (11.5-15.5) % Plt Count 201 D (150-450) k/uL Neutrophils % 81 % Lymphocytes % 13 % Monocytes % 4 % Eosinophils % 0 % Basophils % 0 % Neutrophils # 3.9 (1.3-7.7) k/uL Lymphocytes # 0.6 L (1.0-4.8) k/uL Monocytes # 0.2 (0-1.0) k/uL Eosinophils # 0.0 (0-0.7) k/uL Basophils # 0.0 (0-0.2) k/uL Anisocytosis Slight Macrocytosis Slight Sodium 141 (137-145) mmol/L Potassium 4.2 (3.5-5.1) mmol/L Chloride 104 (98-107) mmol/L Carbon Dioxide 27 (22-30) mmol/L Anion Gap 10 mmol/L BUN 15 (7-17) mg/dL Creatinine 0.89 (0.52-1.04) mg/dL Est GFR (CKD-EPI)AfAm 79 (>60 ml/min/1.73 sqM) Est GFR (CKD-EPI)NonAf 68 (>60 ml/min/1.73 sqM) Glucose 132 H (74-99) mg/dL Plasma Lactic Acid Chad (0.7-2.0) mmol/L Calcium 9.2 (8.4-10.2) mg/dL Total Bilirubin 0.5 (0.2-1.3) mg/dL AST 22 (14-36) U/L ALT 9 (4-34) U/L Alkaline Phosphatase 72 (38-126) U/L Creatine Kinase <20 L (30-135) U/L Total Protein 6.5 (6.3-8.2) g/dL Albumin 3.7 (3.5-5.0) g/dL Lipase 38 (23-300) U/L Urine Color Urine Appearance (Clear) Urine pH (5.0-8.0) Ur Specific [place] (1.001-1.035) Urine Protein (Negative) Urine Glucose (UA) (Negative) Urine Ketones (Negative) Urine Blood (Negative) Urine Nitrite (Negative) Urine Bilirubin (Negative) Urine Urobilinogen (<2.0) mg/dL Ur Leukocyte Esterase (Negative) Urine RBC (0-5) /hpf Urine WBC (0-5) /hpf Ur Squamous Epith Cells (0-4) /hpf Urine Bacteria (None) /hpf Hyaline Casts (0-2) /lpf Urine Mucus (None) /hpf Influenza Type A RNA Not Detected (Not Detectd) Influenza Type B (PCR) Not Detected (Not Detectd) 06/06/19 06/06/19 Range/Units 13:31 14:00 WBC (3.8-10.6) k/uL RBC (3.80-5.40) m/uL Hgb (11.4-16.0) gm/dL Hct (34.0-46.0) % MCV (80.0-100.0) fL MCH (25.0-35.0) pg MCHC (31.0-37.0) g/dL RDW (11.5-15.5) % Plt Count (150-450) k/uL Neutrophils % % Lymphocytes % % Monocytes % % Eosinophils % % Basophils % % Neutrophils # (1.3-7.7) k/uL Lymphocytes # (1.0-4.8) k/uL Monocytes # (0-1.0) k/uL Eosinophils # (0-0.7) k/uL Basophils # (0-0.2) k/uL Anisocytosis Macrocytosis Sodium (137-145) mmol/L Potassium (3.5-5.1) mmol/L Chloride (98-107) mmol/L Carbon Dioxide (22-30) mmol/L Anion Gap mmol/L BUN (7-17) mg/dL Creatinine (0.52-1.04) mg/dL Est GFR (CKD-EPI)AfAm (>60 ml/min/1.73 sqM) Est GFR (CKD-EPI)NonAf (>60 ml/min/1.73 sqM) Glucose (74-99) mg/dL Plasma Lactic Acid Chad 1.2 (0.7-2.0) mmol/L Calcium (8.4-10.2) mg/dL Total Bilirubin (0.2-1.3) mg/dL AST (14-36) U/L ALT (4-34) U/L Alkaline Phosphatase (38-126) U/L Creatine Kinase (30-135) U/L Total Protein (6.3-8.2) g/dL Albumin (3.5-5.0) g/dL Lipase (23-300) U/L Urine Color Yellow Urine Appearance Clear (Clear) Urine pH 6.0 (5.0-8.0) Ur Specific [place] 1.022 (1.001-1.035) Urine Protein 1+ H (Negative) Urine Glucose (UA) Negative (Negative) Urine Ketones Negative (Negative) Urine Blood Negative (Negative) Urine Nitrite Negative (Negative) Urine Bilirubin Negative (Negative) Urine Urobilinogen <2.0 (<2.0) mg/dL Ur Leukocyte Esterase Small H (Negative) Urine RBC 1 (0-5) /hpf Urine WBC 18 H (0-5) /hpf Ur Squamous Epith Cells 1 (0-4) /hpf Urine Bacteria Rare H (None) /hpf Hyaline Casts 10 H (0-2) /lpf Urine Mucus Occasional H (None) /hpf Influenza Type A RNA (Not Detectd) Influenza Type B (PCR) (Not Detectd) - EKG Data EKG Comments: EKG demonstrates a sinus tachycardia with a ventricular rate of 109. NV interval 140. QRS 74. QTC of 457. No acute ST segment elevations or depressions concerning for ischemic changes Disposition Clinical Impression: UTI (urinary tract infection), Left-sided chest wall pain, Nausea & vomiting Disposition: ADMITTED IP TO THIS HOSP Condition: Stable Is patient prescribed a controlled substance at d/c from ED?: No Decision to Admit Reason: Admit from EC Decision Date: 06/06/19 Decision Time: 16:28
[2019-06-06 14:07] LABS: Anisocytosis Slight; Basophils % (A) 0 %; Eosinophils % (A) 0 %; HGB 10.7 gm/dL (11.4-16.0); Lymphocytes # (A) 0.6 k/uL (1.0-4.8); Lymphocytes % (A) 13 %; MCH 31.2 pg (25.0-35.0); MCHC 32.4 g/dL (31.0-37.0); MCV 96.2 fL (80.0-100.0); Macrocytosis Slight; Mean Platelet Volume 8.5; Monocytes # (A) 0.2 k/uL (0-1.0); Monocytes % (A) 4 %; Neutrophils # (A) 3.9 k/uL (1.3-7.7); Neutrophils % (A) 81 %; RBC 3.43 m/uL (3.80-5.40); RDW 17.1 % (11.5-15.5); WBC 4.9 k/uL (3.8-10.6)
[2019-06-06 14:10] LABS: ALT 9 U/L (4-34); AST 22 U/L (14-36); African American GFR (CKD) 79 (>60 ml/min/1.73 sqM); Albumin 3.7 g/dL (3.5-5.0); Alkaline Phosphatase 72 U/L (38-126); Anion Gap 10 mmol/L; Blood Urea Nitrogen 15 mg/dL (7-17); Calcium 9.2 mg/dL (8.4-10.2); Carbon Dioxide 27 mmol/L (22-30); Chloride 104 mmol/L (98-107); Creatine Kinase <20 U/L (30-135); Glucose 132 mg/dL (74-99); Non-African American GFR(CKD) 68 (>60 ml/min/1.73 sqM); Potassium 4.2 mmol/L (3.5-5.1); Sodium 141 mmol/L (137-145); Total Bilirubin 0.5 mg/dL (0.2-1.3); Total Protein 6.5 g/dL (6.3-8.2)
[2019-06-06 14:12] LABS: Platelet Count 201 k/uL (150-450)
--- NOTE | 2019-06-06 14:19 | XR ---
Chest x-ray and left RIBS HISTORY: Left rib pain Correlation to prior chest x-ray 05/16/2019 Frontal view chest and 4 views left RIBS Is a Port-A-Cath in the right pectoral region via right subclavian approach the distal tip is at the cavoatrial junction level. No pneumothorax or pleural effusion. Left hilar mass is again noted. There is no evident displaced ri b fracture. No pneumothorax or pleural effusion. Coronary artery stent noted incidentally. Surgical c lips present in the upper abdomen. Air-fluid levels are noted without bowel distention. IMPRESSION: Left hilar mass, mediastinal adenopathy. Bone scan may be of increased sensitivity to ass ess for metastasis or occult injury.
[2019-06-06 14:42] LABS: Appearance,Urine Clear (Clear); Bacteria,Urine Rare /hpf; Bilirubin,Urine Negative (Negative); Blood,Urine Negative (Negative); Color,Urine Yellow; Glucose,Urine (UA) Negative (Negative); Hyaline Casts,Urine 10 /lpf (0-2); Ketones,Urine Negative (Negative); Leukocyte Esterase,Urine Small (Negative); Mucus,Urine Occasional /hpf; Nitrite,Urine Negative (Negative); Protein,Urine 1+ (Negative); RBC,Urine 1 /hpf (0-5); Specific Gravity,Urine 1.022 (1.001-1.035); Squamous Epithelial Cell,Urine 1 /hpf (0-4); Urobilinogen,Urine <2.0 mg/dL (<2.0); WBC,Urine 18 /hpf (0-5)
[2019-06-06] MEDS ORDERED: NALOXONE 0.4 MG/ML 1 ML VIAL IV PRN (16:28)
[2019-06-06] MEDS ORDERED: LEVOFLOXACIN 500MG-D5W PMX 500 MG in DEXTROSE/WATER 1 100ML.BAG IVPB STA (16:38)
[2019-06-06] MEDS: SODIUM CHLORIDE 0.9% 1,000 ML IV SCH (16:53)
[2019-06-06] MEDS: ONDANSETRON 4 MG/2 ML VIAL IVP PRN (16:54)
[2019-06-06] MEDS: HYDROmorphone 1 MG/ML 1 ML SYRINGE IVP PRN ×2 (16:56→20:30)
[2019-06-06] MEDS: METOCLOPRAMIDE 5 MG/ML 2 ML VIAL IVP PRN (20:32)
[2019-06-06] MEDS: ACETAMINOPHEN TAB 325 MG TAB PO PRN (20:33)
[2019-06-07] MEDS: ONDANSETRON 4 MG/2 ML VIAL IVP PRN ×3 (00:54→20:04)
[2019-06-07] MEDS: HYDROmorphone 1 MG/ML 1 ML SYRINGE IVP PRN ×6 (00:54→22:17)
[2019-06-07] MEDS: ZOLPIDEM 5 MG TAB PO SCH ×2 (01:48→23:04)
[2019-06-07] MEDS: SODIUM CHLORIDE 0.9% 1,000 ML IV SCH ×3 (03:27→22:20)
[2019-06-07] MEDS: METOCLOPRAMIDE 5 MG/ML 2 ML VIAL IVP PRN ×2 (07:46→15:48)
[2019-06-07] MEDS ORDERED: ONDANSETRON 4 MG TAB PO PRN (11:04)
[2019-06-07] MEDS ORDERED: HYDROcodone/APAP 5-325MG 1 EACH TAB PO PRN (11:04)
[2019-06-07] MEDS ORDERED: PROCHLORPERAZINE 10 MG TAB PO PRN (11:04)
[2019-06-07] MEDS: ESCITALOPRAM 20 MG TAB PO SCH (12:01)
[2019-06-07] MEDS: FOLIC ACID 1 MG TAB PO SCH (12:01)
[2019-06-07] MEDS: MAGNESIUM OXIDE 400 MG TAB PO SCH ×2 (12:02→21:16)
[2019-06-07] MEDS: PANTOPRAZOLE 40 MG TABLET PO SCH (12:02)
[2019-06-07 15:25] VITALS: RESP 16
[2019-06-07] MEDS ORDERED: LEVOFLOXACIN 500 MG TAB PO SCH (17:00)
[2019-06-07] MEDS: DILTIAZEM CD 120 MG CAP.ER.24H PO SCH (17:22)
[2019-06-07] MEDS: GABAPENTIN 300 MG CAP PO SCH ×2 (17:38→21:16)
[2019-06-07] MEDS: ACETAMINOPHEN TAB 325 MG TAB PO PRN (20:03)
--- NOTE | 2019-06-07 22:54 | HP ---
HISTORY AND PHYSICAL CHIEF COMPLAINT: Nausea, vomiting, diarrhea and abdominal pain. HISTORY OF PRESENT ILLNESS: This is another recent admission for this 63-year-old white female with advancing ovarian carcinoma. She started to develop crampy abdominal pain with nausea and vomiting of normal gastric contents as well as diarrhea. She came to the emergency room, where she was dehydrated, and it was decided to admit her for rehydration and control of her vomiting and diarrhea. She has had a recurrence of the left flank pain for which she was admitted recently and worked up, and there is no hydronephrosis on the left. REVIEW OF SYSTEMS: She has no other symptoms. She has had no melena, hematochezia, fever, chills, etc. Past medical history, family history, and personal and social histories are all otherwise unremarkable and unchanged from her previous visit. PHYSICAL EXAMINATION: Blood pressure is 132/64 with a pulse of 78, respirations of 34, and she is afebrile. In general she appeared to be chronically ill in appearance. She was pale. Head, ears, eyes, nose, mouth and throat were normal and the chest was clear. Cardiac exam was normal. Abdomen was soft, nontender without any visceromegaly or masses. Bowel sounds were present. She has a ureterostomy tube in the right flank. A tumor mass can be palpated in the lower abdomen. Extremities were normal. Neurologically she was intact. ADMITTING DIAGNOSES: She is admitted to the hospital with the diagnoses: 1. Dehydration. 2. Intractable nausea, vomiting, diarrhea. 3. Probable viral gastroenteritis. 4. Ovarian carcinoma. PLAN: 1. Bed rest. 2. IV fluids. 3. Control nausea, vomiting and diarrhea. MMODL / IJN: [id number] /
[2019-06-08] MEDS: ACETAMINOPHEN TAB 325 MG TAB PO PRN (01:37)
[2019-06-08] MEDS: HYDROmorphone 1 MG/ML 1 ML SYRINGE IVP PRN ×2 (06:37→10:42)
[2019-06-08] MEDS: SODIUM CHLORIDE 0.9% 1,000 ML IV SCH (07:10)
[2019-06-08 07:15] VITALS: BP 132/85; PULSE 105; TEMP 96.7
[2019-06-08] MEDS: FOLIC ACID 1 MG TAB PO SCH (08:29)
[2019-06-08] MEDS: METOCLOPRAMIDE 5 MG/ML 2 ML VIAL IVP PRN (08:29)
[2019-06-08] MEDS: PANTOPRAZOLE 40 MG TABLET PO SCH (08:29)
[2019-06-08] MEDS: MAGNESIUM OXIDE 400 MG TAB PO SCH (08:30)
[2019-06-08] MEDS: GABAPENTIN 300 MG CAP PO SCH (08:30)
[2019-06-08] MEDS: ESCITALOPRAM 20 MG TAB PO SCH (08:30)
[2019-06-08] MEDS: DILTIAZEM CD 120 MG CAP.ER.24H PO SCH (09:00)
--- NOTE | 2019-06-08 18:34 | DS ---
DISCHARGE SUMMARY CHIEF COMPLAINT: Abdominal pain and nausea and vomiting. HISTORY OF PRESENT ILLNESS AND PHYSICAL EXAM: Details of this lady's history and physical can be found in the initial workup. LABORATORY STUDIES: While she was in the hospital, she had laboratory studies, details of which can be found in the laboratory section of chart. COURSE IN HOSPITAL: After admission, she was placed on bedrest, started on intravenous fluids and antiemetics. Her pain was controlled. Nausea, vomiting stopped and it was felt that this might have been related to gastroenteritis. She was doing well. It was felt she could be discharged on the and she will go home on usual activity, diet and medication and she will follow up in the office in a few days. FINAL DIAGNOSES: 1. Intractable nausea and vomiting. 2. Carcinoma of the ovary. 3. Right ureteral obstruction. 4. Viral gastroenteritis. 5. Dehydration. OPERATIONS: None. CONSULTATIONS: None. She is improved. MMSUKI / JULIANA: [id number] /
== END 2019-06-08 12:35 | disposition home or self-care (01) ==
LOC: EC 11:25 → 4SSUR 16:28
PROVIDERS: ADMIT Family Medicine; ATTEND Family Medicine
DX: A08.4 Viral intestinal infection, unspecified (principal); E86.0 Dehydration; N13.5 Crossing vessel and stricture of ureter without hydronephrosis; C56.9 Malignant neoplasm of unspecified ovary; R07.89 Other chest pain; Z92.21 Personal history of antineoplastic chemotherapy; I10 Essential (primary) hypertension; F41.9 Anxiety disorder, unspecified; F32.9 Major depressive disorder, single episode, unspecified; Z86.19 Personal history of other infectious and parasitic diseases; Z90.710 Acquired absence of both cervix and uterus; Z90.722 Acquired absence of ovaries, bilateral; Z79.891 Long term (current) use of opiate analgesic; Z79.899 Other long term (current) drug therapy; Z91.048 Other nonmedicinal substance allergy status; Z88.1 Allergy status to other antibiotic agents; Z88.0 Allergy status to penicillin; Z88.5 Allergy status to narcotic agent; Z88.8 Allergy status to other drugs, medicaments and biological substances
CPT/HCPCS: 96376 ×4; 96361 ×2; 96365; 96375; 99285; 36415; 93005; 80053; 82550; 83605; 83690; 85025; 81001; 87040; 87086; 87502; 71101; G0378 ×3; J2765 ×3; J2405 ×2; J1956; J1642; J1170 ×4

== ENCOUNTER 2019-06-08 19:54 | Inpatient (IN) | payer MEDICARE ==
[2019-06-08] MEDS ORDERED: ONDANSETRON 4 MG/2 ML VIAL IVP STA (20:21)
[2019-06-08] MEDS ORDERED: HYDROmorphone 0.5 MG/0.5 ML SYRINGE IVP STA (20:21)
[2019-06-08] MEDS ORDERED: SODIUM CHLORIDE 0.9% 500 ML 500 ML IV STA (20:21)
[2019-06-08] MEDS ORDERED: SODIUM CHLORIDE 0.9% 1,000 ML IV STA (20:21)
--- NOTE | 2019-06-08 20:33 | ED ---
General Adult HPI - General Chief complaint: Nausea/Vomiting/Diarrhea Stated complaint: Weakness, Fever Time Seen by Provider: 06/08/19 20:07 Source: patient Mode of arrival: wheelchair Limitations: no limitations - History of Present Illness Initial comments: This 63-year-old female presents with a complaint of some left lower quadrant abdominal pain. She also has had 3 episodes of watery diarrhea. She states that the symptoms came on earlier today right after she was discharged from the hospital. She been admitted for the last 2 days with possible viral gastroenteritis. She was having some nausea and vomiting as well as some chest pains. She denies any current nausea or vomiting or chest pain. She relates a temperature of 100.1 just prior to arrival. She denies any other complaints or modifying factors. She does have a history of ovarian cancer since 2005 and will take oral chemotherapy at times for this. - Related Data Home Medications Medication Instructions Recorded Confirmed Gabapentin [Neurontin] 300 mg PO TID 10/17/17 06/06/19 Zolpidem [Ambien] 5 mg PO HS 09/14/18 06/06/19 Hydrocodone/Acetaminophen [[place] 1 tab PO QID PRN 10/04/18 06/06/19 5-325] Escitalopram [Lexapro] 20 mg PO DAILY 12/19/18 06/06/19 Folic Acid 0.4 mg PO DAILY 04/29/19 06/06/19 Ondansetron HCl [Zofran] 8 mg PO Q8H PRN 05/09/19 06/06/19 Prochlorperazine [Compazine] 10 mg PO TID PRN 05/09/19 06/06/19 Diltiazem HCl [Cardizem] 120 mg PO DAILY 05/16/19 06/06/19 Esomeprazole Magnesium [NexIUM 20 mg PO DAILY 06/06/19 06/06/19 24Hr] Previous Rx's Medication Instructions Recorded Magnesium Oxide [Mag-Ox] 400 mg PO TID #90 tab 05/14/19 Levofloxacin [Levaquin] 500 mg PO DAILY #10 tab 05/21/19 Allergies Allergy/AdvReac Type Severity Reaction Status Date / Time adhesive Allergy Rash/Hives Verified 06/06/19 17:05 carboplatin Allergy Anaphylaxis Verified 06/06/19 17:05 ceftriaxone [From Rocephin] Allergy Itching Verified 06/06/19 17:05 iodine Allergy Rash/Hives Verified 06/06/19 17:05 Penicillins Allergy Rash/Hives Verified 06/06/19 17:05 codeine AdvReac Nausea & Verified 06/06/19 17:05 Vomiting morphine AdvReac Nausea & Verified 06/06/19 17:05 Vomiting Review of Systems ROS Statement: Those systems with pertinent positive or pertinent negative responses have been documented in the HPI. ROS Other: All systems not noted in ROS Statement are negative. Past Medical History Past Medical History: Cancer, Hypertension Additional Past Medical History / Comment(s): Ovarian cancer on PO chemo History of Any Multi-Drug Resistant Organisms: VRE Date of last positivie culture/infection: 01/26/18 MDRO Source:: urine Past Surgical History: Hysterectomy Additional Past Surgical History / Comment(s): Bilateral oopherectomy/hysterec shereen, 2 open exploratory abdominal surgery, R chest mediport placed 2011, bilateral retrograde pyelogram cystoscopy with R ureter stent and stent exchanges, jaws have pins d/t surgery for TMJ, colonoscopy. Right nephrosotomy tube placement 12/31 (still in place). Past Anesthesia/Blood Transfusion Reactions: No Reported Reaction Additional Past Anesthesia/Blood Transfusion Reaction / Comment(s): Pt has received blood in past without reaction. Date of Last Stent Placement:: 2011 Past Psychological History: Anxiety, Depression Smoking Status: Never smoker Past Alcohol Use History: Occasional Past Drug Use History: None Reported - Past Family History Mother Family Medical History: Cancer, Diabetes Mellitus Brother(s) Family Medical History: Cancer Additional Family Medical History / Comment(s): Lung cancer- since passed. Sister(s) Family Medical History: CVA/TIA Additional Family Medical History / Comment(s): 2 weeks ago. Father Family Medical History: Dementia, Neurologic Disorder Additional Family Medical History / Comment(s): Alzheimer's. General Exam - General Exam Comments Initial Comments: GENERAL: The patient is well nourished and well hydrated. VITAL SIGNS: Heart rate, blood pressure, respiratory rate reviewed as recorded in nurse's notes. EYES: Pupils are round and reactive. Extraocular movements are intact. No conjunctival / lid redness or swelling. ENT: No external evidence of injury, swelling, or ecchymosis. Airway is patent. Throat is clear. NECK: Nontender. No swelling or evidence of injury. No subcutaneous emphysema. Trachea is midline. No thyroid mass. HEART: Tachycardic heart rate noted. Good peripheral pulses. LUNGS/CHEST: Breath sounds clear and equal bilaterally. No rales, rhonchi, or wheezes. No ecchymosis, subcutaneous emphysema, or tenderness. ABDOMEN: There is some tenderness noted into the left lower quadrant. Abdomen is soft. No palpable masses or organomegaly. No peritoneal signs. No abdominal wall swelling or ecchymosis. EXTREMITIES: No extremity tenderness. Normal muscle tone and function. No thoracolumbar tenderness. NEUROLOGIC: Sensation is grossly intact. Cranial nerve exam reveals face is symmetrical, tongue is midline, speech is clear. SKIN: No abrasions or ecchymosis is noted. No induration or masses noted. PSYCHIATRIC: Alert and oriented. Appropriate behavior and judgment. Limitations: no limitations Course Vital Signs 06/08/19 06/08/19 20:03 21:31 Temperature 99.6 F Pulse Rate 115 H 100 Respiratory 18 16 Rate Blood Pressure 143/77 136/70 O2 Sat by Pulse 97 95 Oximetry Medical Decision Making - Medical Decision Making The patient is seen and examined. An IV is established and patient is hydrated. She receives some Zofran and Dilaudid intravenously. The laboratory is reviewed and does show some mild anemia. The urine does not show any current evidence of infection. The computed tomography scan of the abdomen and pelvis shows some mesenteric edema. There is good placement of the nephrostomy tube. Overall, it is felt as though she may require admission to the hospital for further treatment. She likely still does have sequelae of a gastroenteritis. The case will be discussed with internal medicine in the near future and patient is admitted to hospital for further treatment - Lab Data Result diagrams: 06/08/19 20:53 06/08/19 20:53 Lab Results 06/08/19 06/08/19 06/08/19 Range/Units 20:26 20:53 20:53 WBC 5.2 (3.8-10.6) k/uL RBC 3.25 L (3.80-5.40) m/uL Hgb 10.1 L (11.4-16.0) gm/dL Hct 31.0 L (34.0-46.0) % MCV 95.1 (80.0-100.0) fL MCH 31.0 (25.0-35.0) pg MCHC 32.6 (31.0-37.0) g/dL RDW 16.5 H (11.5-15.5) % Plt Count 189 (150-450) k/uL Neutrophils % 70 % Lymphocytes % 17 % Monocytes % 8 % Eosinophils % 2 % Basophils % 1 % Neutrophils # 3.6 (1.3-7.7) k/uL Lymphocytes # 0.9 L (1.0-4.8) k/uL Monocytes # 0.4 (0-1.0) k/uL Eosinophils # 0.1 (0-0.7) k/uL Basophils # 0.1 (0-0.2) k/uL Poikilocytosis Slight Anisocytosis Slight Sodium 139 (137-145) mmol/L Potassium 3.6 (3.5-5.1) mmol/L Chloride 107 (98-107) mmol/L Carbon Dioxide 25 (22-30) mmol/L Anion Gap 7 mmol/L BUN 7 (7-17) mg/dL Creatinine 0.81 (0.52-1.04) mg/dL Est GFR (CKD-EPI)AfAm 89 (>60 ml/min/1.73 sqM) Est GFR (CKD-EPI)NonAf 77 (>60 ml/min/1.73 sqM) Glucose 104 H (74-99) mg/dL Plasma Lactic Acid Chad (0.7-2.0) mmol/L Calcium 9.1 (8.4-10.2) mg/dL Total Bilirubin 0.5 (0.2-1.3) mg/dL AST 34 (14-36) U/L ALT 9 (4-34) U/L Alkaline Phosphatase 51 (38-126) U/L Total Protein 6.3 (6.3-8.2) g/dL Albumin 3.5 (3.5-5.0) g/dL Amylase <30 L (30-110) U/L Lipase 53 (23-300) U/L Urine Color Light Yellow Urine Appearance Clear (Clear) Urine pH 5.0 (5.0-8.0) Ur Specific [place] 1.005 (1.001-1.035) Urine Protein Negative (Negative) Urine Glucose (UA) Negative (Negative) Urine Ketones Negative (Negative) Urine Blood Negative (Negative) Urine Nitrite Negative (Negative) Urine Bilirubin Negative (Negative) Urine Urobilinogen <2.0 (<2.0) mg/dL Ur Leukocyte Esterase Trace H (Negative) Urine RBC 1 (0-5) /hpf Urine WBC 11 H (0-5) /hpf Urine Bacteria Rare H (None) /hpf Urine Mucus Rare H (None) /hpf 06/08/19 Range/Units 20:53 WBC (3.8-10.6) k/uL RBC (3.80-5.40) m/uL Hgb (11.4-16.0) gm/dL Hct (34.0-46.0) % MCV (80.0-100.0) fL MCH (25.0-35.0) pg MCHC (31.0-37.0) g/dL RDW (11.5-15.5) % Plt Count (150-450) k/uL Neutrophils % % Lymphocytes % % Monocytes % % Eosinophils % % Basophils % % Neutrophils # (1.3-7.7) k/uL Lymphocytes # (1.0-4.8) k/uL Monocytes # (0-1.0) k/uL Eosinophils # (0-0.7) k/uL Basophils # (0-0.2) k/uL Poikilocytosis Anisocytosis Sodium (137-145) mmol/L Potassium (3.5-5.1) mmol/L Chloride (98-107) mmol/L Carbon Dioxide (22-30) mmol/L Anion Gap mmol/L BUN (7-17) mg/dL Creatinine (0.52-1.04) mg/dL Est GFR (CKD-EPI)AfAm (>60 ml/min/1.73 sqM) Est GFR (CKD-EPI)NonAf (>60 ml/min/1.73 sqM) Glucose (74-99) mg/dL Plasma Lactic Acid Chad 1.2 (0.7-2.0) mmol/L Calcium (8.4-10.2) mg/dL Total Bilirubin (0.2-1.3) mg/dL AST (14-36) U/L ALT (4-34) U/L Alkaline Phosphatase (38-126) U/L Total Protein (6.3-8.2) g/dL Albumin (3.5-5.0) g/dL Amylase (30-110) U/L Lipase (23-300) U/L Urine Color Urine Appearance (Clear) Urine pH (5.0-8.0) Ur Specific [place] (1.001-1.035) Urine Protein (Negative) Urine Glucose (UA) (Negative) Urine Ketones (Negative) Urine Blood (Negative) Urine Nitrite (Negative) Urine Bilirubin (Negative) Urine Urobilinogen (<2.0) mg/dL Ur Leukocyte Esterase (Negative) Urine RBC (0-5) /hpf Urine WBC (0-5) /hpf Urine Bacteria (None) /hpf Urine Mucus (None) /hpf Disposition Clinical Impression: Acute abdominal pain, Diarrhea, Sinus tachycardia Disposition: ADMITTED IP TO THIS [facility] Condition: Fair Is patient prescribed a controlled substance at d/c from ED?: No Time of Disposition: 21:44 Decision Date: 06/08/19 Decision Time: 21:44
[2019-06-08 21:18] LABS: Appearance,Urine Clear (Clear); Bacteria,Urine Rare /hpf; Bilirubin,Urine Negative (Negative); Blood,Urine Negative (Negative); Color,Urine Light Yellow; Glucose,Urine (UA) Negative (Negative); Ketones,Urine Negative (Negative); Leukocyte Esterase,Urine Trace (Negative); Mucus,Urine Rare /hpf; Nitrite,Urine Negative (Negative); Protein,Urine Negative (Negative); RBC,Urine 1 /hpf (0-5); Specific Gravity,Urine 1.005 (1.001-1.035); Urobilinogen,Urine <2.0 mg/dL (<2.0); WBC,Urine 11 /hpf (0-5)
[2019-06-08 21:20] LABS: ALT 9 U/L (4-34); AST 34 U/L (14-36); African American GFR (CKD) 89 (>60 ml/min/1.73 sqM); Albumin 3.5 g/dL (3.5-5.0); Alkaline Phosphatase 51 U/L (38-126); Amylase <30 U/L (30-110); Anion Gap 7 mmol/L; Blood Urea Nitrogen 7 mg/dL (7-17); Calcium 9.1 mg/dL (8.4-10.2); Carbon Dioxide 25 mmol/L (22-30); Chloride 107 mmol/L (98-107); Glucose 104 mg/dL (74-99); Non-African American GFR(CKD) 77 (>60 ml/min/1.73 sqM); Sodium 139 mmol/L (137-145); Total Bilirubin 0.5 mg/dL (0.2-1.3); Total Protein 6.3 g/dL (6.3-8.2)
[2019-06-08 21:22] LABS: Potassium 3.6 mmol/L (3.5-5.1)
[2019-06-08 21:24] LABS: Anisocytosis Slight; Basophils # (A) 0.1 k/uL (0-0.2); Basophils % (A) 1 %; Eosinophils # (A) 0.1 k/uL (0-0.7); Eosinophils % (A) 2 %; HGB 10.1 gm/dL (11.4-16.0); Lymphocytes # (A) 0.9 k/uL (1.0-4.8); Lymphocytes % (A) 17 %; MCHC 32.6 g/dL (31.0-37.0); MCV 95.1 fL (80.0-100.0); Mean Platelet Volume 8.4; Monocytes # (A) 0.4 k/uL (0-1.0); Monocytes % (A) 8 %; Neutrophils # (A) 3.6 k/uL (1.3-7.7); Neutrophils % (A) 70 %; Platelet Count 189 k/uL (150-450); Poikilocytosis Slight; RBC 3.25 m/uL (3.80-5.40); RDW 16.5 % (11.5-15.5); WBC 5.2 k/uL (3.8-10.6)
[2019-06-08 21:33] LABS: Prothrombin Time 10.1 sec (9.0-12.0)
--- NOTE | 2019-06-08 21:34 | CT ---
EXAMINATION TYPE: CT abdomen pelvis wo con DATE OF EXAM: 06/08/2019 COMPARISON: 03/21/2019 HISTORY: Lower abdominal pain and fever. CT DLP: 495.6 mGycm Automated exposure control for dose reduction was used. Multiple axial sections were obtained from the diaphragm to the floor the pelvis with no contrast. Lung bases are clear. There is no pleural effusion. Liver spleen pancreas appear normal. There are cl ips from cholecystectomy. Common bile duct measures up to 1.5 cm. Intrahepatic bile ducts appear norm al. There is no adrenal mass. There is right side nephrostomy tube noted. There is no hydronephrosis. Kid neys have normal size. Abdominal aorta is atheromatous. There is no retroperitoneal adenopathy. There is some fat stranding and mesenteric edema in the pelvis. There is some linear density in the subcut aneous fat over the left lower quadrant that could relate to scar tissue. Bladder distends smoothly. There is no evidence of a bowel obstruction. There is no inguinal hernia. There is no free fluid in t he pelvis. There are surgical clips in the pelvis. There are some mildly distended loops of small bow el with fluid in the mid abdomen. I do not suspect a mechanical obstruction. Appendix is not seen. Lumbar vertebra have normal alignment. Disc spaces are fairly normal. There is no compression fractur e. Bony pelvis is intact. I see no bony destructive process. IMPRESSION: There is some intestinal mesenteric edema in the lower abdomen that is new compared to old exam. Righ t side nephrostomy tube in good position. No hydronephrosis. There are a few mildly distended loops o f bowel that could relate to mild ileus. Possibility of mild peritonitis should be considered in this patient with fever.
[2019-06-08] MEDS ORDERED: HYDROmorphone 1 MG/ML 1 ML SYRINGE IVP STA (21:48)
[2019-06-08 22:07] LABS: Partial Thromboplastin Time 21.5 sec (22.0-30.0)
[2019-06-08] MEDS ORDERED: NALOXONE 0.4 MG/ML 1 ML VIAL IV PRN (22:20)
[2019-06-08] MEDS: ZOLPIDEM 5 MG TAB PO SCH (23:02)
[2019-06-09] MEDS: HYDROmorphone 1 MG/ML 1 ML SYRINGE IVP PRN ×8 (01:09→23:50)
[2019-06-09] MEDS: ACETAMINOPHEN TAB 325 MG TAB PO PRN ×2 (05:54→12:14)
[2019-06-09] MEDS: ONDANSETRON 4 MG/2 ML VIAL IVP PRN ×2 (06:41→23:50)
[2019-06-09] MEDS: LEVOFLOXACIN 500 MG TAB PO SCH (07:56)
[2019-06-09] MEDS: PANTOPRAZOLE 40 MG/10 ML VIAL IV SCH (07:56)
[2019-06-09] MEDS: FOLIC ACID 1 MG TAB PO SCH (07:57)
[2019-06-09] MEDS: ENOXAPARIN 40 MG/0.4 ML SYRINGE SQ SCH (07:57)
[2019-06-09] MEDS: GABAPENTIN 300 MG CAP PO SCH ×3 (07:57→20:59)
[2019-06-09] MEDS: DILTIAZEM CD 120 MG CAP.ER.24H PO SCH (07:57)
[2019-06-09] MEDS: ESCITALOPRAM 20 MG TAB PO SCH (07:57)
[2019-06-09] MEDS: MAGNESIUM OXIDE 400 MG TAB PO SCH ×3 (07:59→20:58)
[2019-06-09] MEDS ORDERED: PROCHLORPERAZINE 10 MG TAB PO PRN (09:00)
[2019-06-09] MEDS: SODIUM CHLORIDE 0.9% 1,000 ML IV SCH ×2 (15:12→19:38)
[2019-06-09] MEDS: diphenhydrAMINE 25 MG CAP PO PRN (16:15)
[2019-06-09] MEDS: ZOLPIDEM 5 MG TAB PO SCH (20:59)
[2019-06-10] MEDS: HYDROmorphone 1 MG/ML 1 ML SYRINGE IVP PRN ×6 (03:09→22:03)
[2019-06-10] MEDS: PANTOPRAZOLE 40 MG/10 ML VIAL IV SCH (09:27)
[2019-06-10] MEDS: LEVOFLOXACIN 500 MG TAB PO SCH (09:27)
[2019-06-10] MEDS: ESCITALOPRAM 20 MG TAB PO SCH (09:27)
[2019-06-10] MEDS: GABAPENTIN 300 MG CAP PO SCH ×3 (09:27→22:02)
[2019-06-10] MEDS: ENOXAPARIN 40 MG/0.4 ML SYRINGE SQ SCH (09:27)
[2019-06-10] MEDS: DILTIAZEM CD 120 MG CAP.ER.24H PO SCH (09:27)
[2019-06-10] MEDS: MAGNESIUM OXIDE 400 MG TAB PO SCH ×3 (09:27→22:02)
[2019-06-10] MEDS: FOLIC ACID 1 MG TAB PO SCH (09:33)
[2019-06-10] MEDS: ONDANSETRON 4 MG/2 ML VIAL IVP PRN ×2 (09:43→18:59)
[2019-06-10] MEDS: SODIUM CHLORIDE 0.9% 1,000 ML IV SCH ×2 (11:32→22:05)
[2019-06-10] MEDS: HYDROcodone/APAP 5-325MG 1 EACH TAB PO PRN ×2 (11:39→20:40)
[2019-06-10] MEDS: diphenhydrAMINE 25 MG CAP PO PRN (14:39)
[2019-06-10] MEDS: ZOLPIDEM 5 MG TAB PO SCH (22:02)
[2019-06-11] MEDS: HYDROmorphone 1 MG/ML 1 ML SYRINGE IVP PRN ×7 (00:54→23:02)
[2019-06-11] MEDS: ACETAMINOPHEN TAB 325 MG TAB PO PRN (04:24)
--- NOTE | 2019-06-11 05:38 | HP ---
HISTORY AND PHYSICAL CHIEF COMPLAINT: Abdominal pain, diarrhea and vomiting. HISTORY OF PRESENT ILLNESS: This is another admission for this 63-year-old white female who has terminal ovarian carcinoma. She just went home, and she is now back again with abdominal pain, vomiting and diarrhea. REVIEW OF SYSTEMS: She has had no change in vision or the hearing, cough, hemoptysis, melena, hematochezia, jaundice, hematemesis, etc. Past medical history, family history and personal and social histories are all otherwise unremarkable and unchanged from her recent discharge summary. PHYSICAL EXAMINATION: Blood pressure is 136/85 with a pulse of 80, respirations of 34, and she is afebrile. In general, she appeared to be pale and chronically ill in appearance. Head, ears, eyes, nose, mouth, and throat were otherwise normal. Chest is clear. Cardiac exam demonstrates sinus rhythm and no murmurs or extra sounds. Abdomen is soft and nontender. Bowel sounds present. Extremities are normal. Neurologically, she is intact. She is admitted to the hospital with diagnoses: 1. Intractable abdominal pain with vomiting and diarrhea. 2. Terminal carcinoma of the ovary. 3. Right ureteral obstruction. 4. Depression. PLAN: 1. Bed rest. 2. IV fluids. 3. Reinstitute antiemetics and analgesics and talk to her about end of life plan. She is currently covered better at home because her sister has moved in with her. MMODL / IJN: [id number] /
--- NOTE | 2019-06-11 05:53 | PN ---
PROGRESS NOTE DATE OF SERVICE: 06/10/2019. CHIEF COMPLAINT: Intractable nausea, vomiting, and CA of the ovary. HISTORY OF PRESENT ILLNESS: This lady was anxious to be discharged this morning, but apparently she started to have more abdominal pain and nausea later in the day. REVIEW OF SYSTEMS: She has not been experiencing as much abdominal pain as she was when she came in. PHYSICAL EXAMINATION: She remains pale. Chest is clear. Cardiac exam is unremarkable. Abdomen is soft and nontender. IMPRESSION: Intractable abdominal pain, nausea, vomiting, diarrhea. PLAN: Hold up discharge and will have a discussion as to how she plans to live the rest of her life with regard to hospice, comfort care, etc. MMODL / IJN: [id number] /
--- NOTE | 2019-06-11 06:42 | PN ---
PROGRESS NOTE DATE OF SERVICE: 06/09/2019. CHIEF COMPLAINT: Abdominal pain and vomiting. HISTORY OF PRESENT ILLNESS: This lady is still having a lot of difficulty with lower abdominal and flank pain. She is still nauseated. She still has diarrhea. PHYSICAL EXAMINATION: She is slightly dehydrated. Head, ears, eyes, nose, mouth, and throat are normal. She is pale and cachectic in appearance. Cardiac exam is normal. Abdomen is soft and there is a fullness in the lower abdomen. IMPRESSION: 1. Continuous abdominal pain with nausea, vomiting, and diarrhea. 2. Carcinoma of the ovary. PLAN: Continue on current program. MMODL / IJN: [id number] /
[2019-06-11] MEDS: FOLIC ACID 1 MG TAB PO SCH (08:58)
[2019-06-11] MEDS: GABAPENTIN 300 MG CAP PO SCH ×3 (08:59→21:48)
[2019-06-11] MEDS: ESCITALOPRAM 20 MG TAB PO SCH (08:59)
[2019-06-11] MEDS: LEVOFLOXACIN 500 MG TAB PO SCH (08:59)
[2019-06-11] MEDS: ENOXAPARIN 40 MG/0.4 ML SYRINGE SQ SCH (08:59)
[2019-06-11] MEDS: PANTOPRAZOLE 40 MG/10 ML VIAL IV SCH (08:59)
[2019-06-11] MEDS: DILTIAZEM CD 120 MG CAP.ER.24H PO SCH (08:59)
[2019-06-11] MEDS: MAGNESIUM OXIDE 400 MG TAB PO SCH ×3 (08:59→21:48)
[2019-06-11] MEDS: SODIUM CHLORIDE 0.9% 1,000 ML IV SCH ×2 (09:06→18:19)
--- NOTE | 2019-06-11 15:16 | P.CN ---
Psychiatric Consult - . Consult date: 06/11/19 Consult:: 06/11/19 15:05 IDENTIFYING DATA: Patient is a 51-year-old female who currently lives with her sister is and has 1 daughter and 1 son and currently collects Social Security. HPI: Patient presented to the hospital with a complaint of left lower quadrant pain along with diarrhea and nausea and vomiting. Patient has a significant history of ovarian cancer and has been diagnosed since 2005 and is on by mouth chemotherapy. Patient was previously admitted for a viral gastritis. Psychiatry was asked to see patient for depression. Nurse taking care of patient states that she has been tearful dealing with many stressors. Sister was at the bedside and spoke with poem writer outside the room and states that her sister has been dealing with ovarian cancer for 13 years and has been depressed and wants to give up. She also states that she has been in and out of the hospital dealing with the illness. She also states that she has recently moved in with her sister and has been keeping her company at home. Patient claims that she has been dealing with multiple stressors in her life including difficult relationship with her daughter and son. Patient was tearful at times when describing her chemotherapy and being "sick of it" speaking about her cancer. She states that she has pain in her left side related to the drain that is there. She states that she has been feeling depressed and has poor sleep sleeping approximately 7 hours a night and difficulty initiating sleep. Patient describes feeling more support at home another sister is living with her and she doesn't feel as lonely. She states her appetite is fair. She described having passive SI claiming "sometimes I wish I wasn't going through this" however denies any active suicidal thoughts and denies any plan. Patient denies any homicidal ideations intent or plan. At this time patient denies any auditory or visual hallucinations. Patient denies any flight of ideas racing thoughts and increased in goal directed behavior. Patient denies using any recreational substances and denies any cigarette use or alcohol. PAST PSYCHIATRIC HISTORY: Patient states that she has a history of anxiety and depression. She denies any mental health admissions in the past. She claims that she has a weekly therapist that comes her house. Patient states that she has been on Lexapro 20 mg for years now and also on Ambien 5 mg at night. She denies any suicidal attempts in the past. PMH: Ovarian cancer since 2005 on by mouth chemo, hypertension ALLERGIES: as per EMR CHEMICAL DEPENDENCY HISTORY: as per HPI FAMILY PSYCHIATRIC/SUBSTANCE USE HISTORY: States that there is some amount of mental illness on her mother's side. SOCIAL HISTORY: She states that she was born and raised in [place] and moved to [place]. 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 She is currently and lives with her sister and how this is one daughter one son and collects SS. MENTAL STATUS EXAM: General Appearance: Patient appears to be older than stated age is alert, directable and attempts to cooperate. Fair hygiene and grooming. Behavior: Patient is calmly seated without any agitated behavior. Tearful at times. Speech: Patient's speech is fluent and nonpressured. Soft tone at times. Mood/Affect: Patient reports their mood is depressed, affect is congruent and tearful at times. Suicidality/Homicidality: Patient denies having any suicidal or homicidal ideation intent or plan. Perceptions: Patient denies any visual hallucinations and denies any auditory hallucinations Though content/process: There is no evidence of any delusional thought content and thought process is linear and goal-directed. Memory and concentration: AOX3, grossly intact for the purposes of this session. Can spell "WORLD" backwards Judgment and insight: Fair IMPRESSIONS: Depressive disorder unspecified, rule out adjustment disorder with depressed mood. PLAN: -At this time patient does NOT meet criteria for inpatient psychiatric admission. -Would recommend the following medication changes/additions: Discontinue Ambien as this may have caused patient to sleepwalk or experience other parasomnias in the past. Will start Remeron 15 mg daily at bedtime for mood/sleep. Will also start melatonin 5 mg daily at bedtime for sleep. -Patient to continue outpatient therapist visits at her home. -[employer] worker to give patient mental health/psychiatric outpatient resources and numbers for clinics in the area. -Primary team to consider palliative care given patient's advanced cancer and p ain management. -Psychiatry will sign off at this point 06/11/19 15:12
[2019-06-11] MEDS: ONDANSETRON 4 MG/2 ML VIAL IVP PRN (19:21)
[2019-06-11] MEDS ORDERED: MIRTAZAPINE 15 MG TAB PO SCH (21:00)
[2019-06-11] MEDS ORDERED: MELATONIN 5 MG TABLET PO SCH (21:00)
[2019-06-11] MEDS: HYDROcodone/APAP 5-325MG 1 EACH TAB PO PRN (21:15)
--- NOTE | 2019-06-11 22:22 | PN ---
PROGRESS NOTE CHIEF COMPLAINT: Intractable abdominal pain with nausea and vomiting and carcinoma of the ovary. HISTORY OF PRESENT ILLNESS: This lady is doing a bit better. Pain is improved. She is not nauseated and she has not had any diarrhea. She is expressing interest in seeing a psychiatrist for her depression and she is also agreeable to meeting with Palliative Care. PHYSICAL EXAMINATION: She remains pale and chronically ill in appearance. Her chest is clear. Cardiac exam is normal. Abdomen is soft, nontender. IMPRESSION: 1. Carcinoma of the ovary. 2. Intractable diarrhea. 3. Intractable nausea and vomiting. 4. Intractable pain. 5. Depression. PLAN: 1. Consult with Psychiatry. 2. Consult with the palliative care team. MMODL / IJN: [id number] /
[2019-06-12] MEDS: SODIUM CHLORIDE 0.9% 1,000 ML IV SCH ×2 (03:30→12:42)
[2019-06-12] MEDS: HYDROmorphone 1 MG/ML 1 ML SYRINGE IVP PRN ×3 (04:19→12:11)
[2019-06-12] MEDS: GABAPENTIN 300 MG CAP PO SCH (07:14)
[2019-06-12] MEDS: LEVOFLOXACIN 500 MG TAB PO SCH (07:14)
[2019-06-12] MEDS: DILTIAZEM CD 120 MG CAP.ER.24H PO SCH (07:14)
[2019-06-12] MEDS: ESCITALOPRAM 20 MG TAB PO SCH (07:15)
[2019-06-12] MEDS: ENOXAPARIN 40 MG/0.4 ML SYRINGE SQ SCH (07:15)
[2019-06-12] MEDS: MAGNESIUM OXIDE 400 MG TAB PO SCH (07:15)
[2019-06-12] MEDS: FOLIC ACID 1 MG TAB PO SCH (07:15)
[2019-06-12] MEDS ORDERED: PANTOPRAZOLE 40 MG TABLET PO SCH (09:00)
[2019-06-12 11:48] VITALS: BP 121/60; PULSE 82; RESP 18; TEMP 98.6
--- NOTE | 2019-06-12 23:06 | DS ---
DISCHARGE SUMMARY CHIEF COMPLAINT: Intractable abdominal pain, vomiting and diarrhea with carcinoma of the ovary. HISTORY OF PRESENT ILLNESS AND PHYSICAL EXAMINATION: Details of this lady's history and physical can be found in the initial workup. LABORATORY STUDIES: While she was in the hospital she had laboratory studies, details of which can be found in the laboratory section of her chart. COURSE IN THE HOSPITAL: After admission she was placed on bedrest and started on intravenous fluids and analgesics. Diarrhea and nausea and vomiting improved. The pain also was improved. While she was in the hospital she requested to see Psychiatry for depression, and we talked about her going on palliative care. They were consulted as well. It was felt that she could be discharged and she will go home on usual activity, diet and medication and she will also be on an antidepressant. She will be followed at home by Palliative Care and we will see her in the office as well. FINAL DIAGNOSES: 1. Intractable abdominal pain. 2. Intractable nausea, vomiting and diarrhea. 3. Advancing and terminal carcinoma of the ovary. OPERATIONS: None. CONSULTATIONS: 1. Psychiatry. 2. Palliative Care. She is improved. MMODL / IJN: [id number] /
== END 2019-06-12 13:17 | disposition hospice, home (50) | DRG 755 ==
LOC: EC 19:54 → 5NMEDONC 22:20 → OBSVTOIN 06-11 15:18
PROVIDERS: ADMIT Family Medicine; ATTEND Family Medicine
DX: C56.9 Malignant neoplasm of unspecified ovary (principal); R64 Cachexia; N13.5 Crossing vessel and stricture of ureter without hydronephrosis; Z51.5 Encounter for palliative care; E86.0 Dehydration; D64.9 Anemia, unspecified; R10.9 Unspecified abdominal pain; R11.2 Nausea with vomiting, unspecified; R19.7 Diarrhea, unspecified; F32.9 Major depressive disorder, single episode, unspecified; I10 Essential (primary) hypertension; Z68.23 Body mass index [BMI] 23.0-23.9, adult; Z86.19 Personal history of other infectious and parasitic diseases; Z79.899 Other long term (current) drug therapy; Z90.710 Acquired absence of both cervix and uterus; Z90.79 Acquired absence of other genital organ(s); Z90.722 Acquired absence of ovaries, bilateral; Z98.890 Other specified postprocedural states; Z88.1 Allergy status to other antibiotic agents; Z88.5 Allergy status to narcotic agent; Z88.0 Allergy status to penicillin; Z88.8 Allergy status to other drugs, medicaments and biological substances; Z91.048 Other nonmedicinal substance allergy status; Z83.3 Family history of diabetes mellitus; Z80.1 Family history of malignant neoplasm of trachea, bronchus and lung; Z82.0 Family history of epilepsy and other diseases of the nervous system; Z82.3 Family history of stroke
CPT/HCPCS: 36415; 74176; 80053; 81001; 82150; 83605; 83690; 85025; 85610; 85730; 87040; 87086; 87324; 96361; 96374; 96375; 96376; 99285

== ENCOUNTER 2019-06-17 14:45 | Day surgery (SDC) | payer MEDICARE ==
[2019-06-17 15:44] VITALS: BP 137/82; PULSE 88; RESP 16; TEMP 98.7
== END 2019-06-17 15:48 | disposition home or self-care (01) ==
LOC: RADPROMAIN 14:45
PROVIDERS: ATTEND Radiology Diagnostic Radiology
DX: Z48.03 Encounter for change or removal of drains (principal)
CPT/HCPCS: 99213

== ENCOUNTER 2019-06-24 15:15 | Day surgery (SDC) | payer MEDICARE ==
[2019-06-24 15:48] VITALS: BP 137/67; PULSE 100; RESP 16; TEMP 99.4
== END 2019-06-24 15:58 | disposition home or self-care (01) ==
LOC: RADPROMAIN 15:15
PROVIDERS: ATTEND Radiology Diagnostic Radiology
DX: Z48.03 Encounter for change or removal of drains (principal)
CPT/HCPCS: 99213

== ENCOUNTER 2019-07-01 15:02 | Day surgery (SDC) | payer MEDICARE ==
[2019-07-01 15:19] VITALS: BP 134/63; PULSE 80; RESP 16; TEMP 98
== END 2019-07-01 15:42 | disposition home or self-care (01) ==
LOC: RADPROMAIN 15:02
PROVIDERS: ATTEND Radiology Diagnostic Radiology
DX: Z48.03 Encounter for change or removal of drains (principal)
CPT/HCPCS: 99213

== ENCOUNTER 2019-07-08 15:02 | Day surgery (SDC) | payer MEDICARE ==
[2019-07-08 15:46] VITALS: BP 116/55; PULSE 84; RESP 14; TEMP 100.3
== END 2019-07-08 15:45 | disposition home or self-care (01) ==
LOC: RADPROMAIN 15:02
PROVIDERS: ATTEND Radiology Diagnostic Radiology
DX: Z48.03 Encounter for change or removal of drains (principal); Z93.6 Other artificial openings of urinary tract status
CPT/HCPCS: 99213

== ENCOUNTER 2019-07-15 15:22 | Day surgery (SDC) | payer MEDICARE ==
[2019-07-15 16:12] VITALS: BP 116/65; PULSE 88; RESP 16; TEMP 98.1
== END 2019-07-15 16:15 | disposition home or self-care (01) ==
LOC: RADPROMAIN 15:22
PROVIDERS: ATTEND Radiology Diagnostic Radiology
DX: Z48.03 Encounter for change or removal of drains (principal)
CPT/HCPCS: 99213

== ENCOUNTER 2019-07-18 18:36 | Inpatient (IN) | payer MEDICARE ==
[2019-07-18] MEDS ORDERED: SODIUM CHLORIDE 0.9% 1,000 ML IV STA ×2 (18:42)
[2019-07-18] MEDS ORDERED: ONDANSETRON 4 MG/2 ML VIAL IVP STA (18:42)
[2019-07-18] MEDS ORDERED: HYDROmorphone 1 MG/ML 1 ML SYRINGE IVP STA (19:22)
[2019-07-18 19:31] LABS: Basophils % (A) 0 %; Eosinophils % (A) 1 %; HCT 31.5 % (34.0-46.0); HGB 10.3 gm/dL (11.4-16.0); Lymphocytes # (A) 0.8 k/uL (1.0-4.8); Lymphocytes % (A) 12 %; MCHC 32.8 g/dL (31.0-37.0); MCV 94.7 fL (80.0-100.0); Mean Platelet Volume 8.9; Monocytes # (A) 0.2 k/uL (0-1.0); Monocytes % (A) 4 %; Neutrophils # (A) 5.2 k/uL (1.3-7.7); Neutrophils % (A) 82 %; Platelet Count 166 k/uL (150-450); RBC 3.33 m/uL (3.80-5.40); RDW 15.5 % (11.5-15.5); WBC 6.4 k/uL (3.8-10.6)
--- NOTE | 2019-07-18 19:39 | ED ---
General Adult HPI - General Chief complaint: Nausea/Vomiting/Diarrhea Stated complaint: Vomiting Time Seen by Provider: 07/18/19 18:41 Source: patient Mode of arrival: ambulatory Limitations: no limitations - History of Present Illness Initial comments: Dictation was produced using [employer] dictation software. please excuse any grammatical, word or spelling errors. Chief Complaint: 63-year-old female with past medical history of ovarian cancer presents with nausea and vomiting. History of Present Illness: The feels presents with 24 hours of nausea and vomiting. Patient takes chemo medication pills prescribed by her oncologist. Since then she has been having significant emesis. Her emesis is persistent. She does take antinausea medications at home. Patient has been vomiting green fluid. She does complain of abdominal pain. Patient has any diarrhea. No fever, chills or night sweats. Patient's limited historian secondary to persistent vomiting. She does complain of diffuse abdominal pain The ROS documented in this emergency department record has been reviewed and confirmed by me. Those systems with pertinent positive or negative responses have been documented in the HPI. All other systems are other negative and/or noncontributory. PHYSICAL EXAM: General Impression: Alert and oriented x3, active vomiting with bilious emesis HEENT: Normocephalic atraumatic, extra-ocular movements intact, pupils equal and reactive to light bilaterally, mucous membranes moist. Cardiovascular: Tachycardiac Chest: Lungs clear to auscultation bilaterally, no rhonchi, no wheeze, no rales Abdomen: Diffuse bowel tenderness Musculoskeletal: Pulses present and equal in all extremities, no peripheral edema Motor: no focal deficits noted Neurological: CN II-XII grossly intact, no focal motor or sensory deficits noted ED course: 63-year-old female presents with severe nausea vomiting upon arrival shows heart rate of 118, rest of vital signs within acceptable limits.Laboratory evaluation obtained. CBC unremarkable. Metabolic panel is within acceptable limits. There is some slight hypomagnesemia with the level I.5. Abdominal x- ray was obtained showing findings concerning for suspecting developing small bowel obstruction. Patient reevaluated after menstruation of Zofran and Dilaudid. She is well-appearing. Given her initial presentation and x-ray findings there is concern of possible early small bowel obstruction. Repeat abdominal examination is benign. Patient be admitted with consultation to general surgery. Discussed patient case with Dr. Metzger who is willing to accept patients care. EKG interpretation: Ventricular rate 111, sinus tachycardia,. 120, QRS 76, QTC 462. No IN prolongation, no QTC prolongation, no ST or T-wave changes noted. Overall, this EKG is unremarkable - Related Data Home Medications Medication Instructions Recorded Confirmed Gabapentin [Neurontin] 300 mg PO TID 10/17/17 06/08/19 Zolpidem [Ambien] 5 mg PO HS 09/14/18 06/08/19 Hydrocodone/Acetaminophen [[place] 1 tab PO QID PRN 10/04/18 06/08/19 5-325] Escitalopram [Lexapro] 20 mg PO DAILY 12/19/18 06/08/19 Folic Acid 0.4 mg PO DAILY 04/29/19 06/08/19 Ondansetron HCl [Zofran] 8 mg PO Q8H PRN 05/09/19 06/08/19 Prochlorperazine [Compazine] 10 mg PO TID PRN 05/09/19 06/08/19 Diltiazem HCl [Cardizem] 120 mg PO DAILY 05/16/19 06/08/19 Esomeprazole Magnesium [NexIUM 20 mg PO DAILY 06/06/19 06/08/19 24Hr] Previous Rx's Medication Instructions Recorded Magnesium Oxide [Mag-Ox] 400 mg PO TID #90 tab 05/14/19 Levofloxacin [Levaquin] 500 mg PO DAILY #10 tab 05/21/19 Mirtazapine [Remeron] 15 mg PO HS #30 tab 06/12/19 Pantoprazole [Protonix] 40 mg PO DAILY #30 tablet. 06/12/19 Allergies Allergy/AdvReac Type Severity Reaction Status Date / Time adhesive Allergy Rash/Hives Verified 07/18/19 18:40 carboplatin Allergy Anaphylaxis Verified 07/18/19 18:40 ceftriaxone [From Rocephin] Allergy Itching Verified 07/18/19 18:40 iodine Allergy Rash/Hives Verified 07/18/19 18:40 Penicillins Allergy Rash/Hives Verified 07/18/19 18:40 codeine AdvReac Nausea & Verified 07/18/19 18:40 Vomiting morphine AdvReac Nausea & Verified 07/18/19 18:40 Vomiting Review of Systems ROS Statement: Those systems with pertinent positive or pertinent negative responses have been documented in the HPI. ROS Other: All systems not noted in ROS Statement are negative. Past Medical History Past Medical History: Cancer, Hypertension Additional Past Medical History / Comment(s): Ovarian cancer on PO chemo History of Any Multi-Drug Resistant Organisms: VRE Date of last positivie culture/infection: 01/26/18 MDRO Source:: urine Past Surgical History: Hysterectomy Additional Past Surgical History / Comment(s): Bilateral oopherectomy/hysterectomy, 2 open exploratory abdominal surgery, R chest mediport placed 2011, bilateral retrograde pyelogram cystoscopy with R ureter stent and stent exchanges, jaws have pins d/t surgery for TMJ, colonoscopy. Right nephrosotomy tube placement 12/31 (still in place). Past Anesthesia/Blood Transfusion Reactions: No Reported Reaction Additional Past Anesthesia/Blood Transfusion Reaction / Comment(s): Pt has recei jone blood in past without reaction. Date of Last Stent Placement:: 2011 Past Psychological History: Anxiety, Depression Smoking Status: Never smoker Past Alcohol Use History: Occasional Past Drug Use History: None Reported - Past Family History Mother Family Medical History: Cancer, Diabetes Mellitus Brother(s) Family Medical History: Cancer Additional Family Medical History / Comment(s): Lung cancer- since passed. Sister(s) Family Medical History: CVA/TIA Additional Family Medical History / Comment(s): 2 weeks ago. Father Family Medical History: Dementia, Neurologic Disorder Additional Family Medical History / Comment(s): Alzheimer's. General Exam Limitations: no limitations Course Vital Signs 07/18/19 07/18/19 18:37 20:21 Temperature 98.7 F 98.6 F Pulse Rate 118 H 98 Respiratory 18 17 Rate Blood Pressure 136/72 131/70 O2 Sat by Pulse 98 96 Oximetry Medical Decision Making - Lab Data Result diagrams: 07/18/19 19:20 07/18/19 19:20 Lab Results 07/18/19 07/18/19 Range/Units 19:20 19:20 WBC 6.4 (3.8-10.6) k/uL RBC 3.33 L (3.80-5.40) m/uL Hgb 10.3 L (11.4-16.0) gm/dL Hct 31.5 L (34.0-46.0) % MCV 94.7 (80.0-100.0) fL MCH 31.0 (25.0-35.0) pg MCHC 32.8 (31.0-37.0) g/dL RDW 15.5 (11.5-15.5) % Plt Count 166 (150-450) k/uL Neutrophils % 82 % Lymphocytes % 12 % Monocytes % 4 % Eosinophils % 1 % Basophils % 0 % Neutrophils # 5.2 (1.3-7.7) k/uL Lymphocytes # 0.8 L (1.0-4.8) k/uL Monocytes # 0.2 (0-1.0) k/uL Eosinophils # 0.0 (0-0.7) k/uL Basophils # 0.0 (0-0.2) k/uL Sodium 138 (137-145) mmol/L Potassium 4.0 (3.5-5.1) mmol/L Chloride 101 (98-107) mmol/L Carbon Dioxide 28 (22-30) mmol/L Anion Gap 9 mmol/L BUN 18 H (7-17) mg/dL Creatinine 0.97 (0.52-1.04) mg/dL Est GFR (CKD-EPI)AfAm 71 (>60 ml/min/1.73 sqM) Est GFR (CKD-EPI)NonAf 62 (>60 ml/min/1.73 sqM) Glucose 141 H (74-99) mg/dL Calcium 9.3 (8.4-10.2) mg/dL Magnesium 1.5 L (1.6-2.3) mg/dL Total Bilirubin 0.3 (0.2-1.3) mg/dL AST 38 H (14-36) U/L ALT 27 (4-34) U/L Alkaline Phosphatase 117 (38-126) U/L Total Protein 6.4 (6.3-8.2) g/dL Albumin 3.5 (3.5-5.0) g/dL Disposition Clinical Impression: SBO (small bowel obstruction) Disposition: ADMITTED IP TO THIS [facility] Condition: Fair Referrals: Kevin Metzger MD [Primary Care Provider] - 1-2 days Decision Time: 20:57
[2019-07-18 20:00] LABS: Albumin 3.5 g/dL (3.5-5.0); Calcium 9.3 mg/dL (8.4-10.2); Magnesium 1.5 mg/dL (1.6-2.3); Total Bilirubin 0.3 mg/dL (0.2-1.3); Total Protein 6.4 g/dL (6.3-8.2)
[2019-07-18] MEDS ORDERED: MAGNESIUM SULFATE-D5W PMX 1 GM in DEXTROSE/WATER 1 100ML.BAG IVPB ONE (20:12)
--- NOTE | 2019-07-18 20:30 | XR ---
EXAMINATION TYPE: XR abdomen acute w cxr - total 3 views DATE OF EXAM: 07/18/2019 COMPARISON: 10/05/2015 HISTORY: Vomiting, nausea, pain TECHNIQUE: 3 views FINDINGS: UPRIGHT CHEST RADIOGRAPH: There is no pulmonary edema. The bronchogenic mass adjacent to the aortic a rch is noted. Right subclavian central line tip superimposed over the distal SVC. There is no evidenc e for pneumoperitoneum. ABDOMEN AND PELVIS RADIOGRAPHS: The bowel gas pattern is unremarkable as there is gas visualized thro ughout nondilated small and large bowel. However, the upright view show scattered gas fluid levels a nd some bowel loop caliber is borderline enlarged. Therefore, short interval follow-up radiographic o r CT surveillance is recommended. IMPRESSION: Suspect developing small bowel obstruction.
[2019-07-18] MEDS ORDERED: NALOXONE 0.4 MG/ML 1 ML VIAL IV PRN (20:52)
[2019-07-18] MEDS: SODIUM CHLORIDE 0.9% 1,000 ML IV SCH (21:13)
[2019-07-18] MEDS: HYDROmorphone 1 MG/ML 1 ML SYRINGE IVP PRN (22:20)
[2019-07-19] MEDS: ONDANSETRON 4 MG/2 ML VIAL IVP PRN ×2 (01:15→08:30)
[2019-07-19] MEDS: HYDROmorphone 1 MG/ML 1 ML SYRINGE IVP PRN ×6 (01:15→18:29)
[2019-07-19] MEDS: SODIUM CHLORIDE 0.9% 1,000 ML IV SCH ×3 (07:07→21:05)
[2019-07-19] MEDS ORDERED: METOCLOPRAMIDE 5 MG/ML 2 ML VIAL IVP PRN (08:37)
[2019-07-19] MEDS ORDERED: PROCHLORPERAZINE 10 MG TAB PO PRN (10:56)
[2019-07-19] MEDS ORDERED: ONDANSETRON 4 MG TAB PO PRN (10:56)
[2019-07-19] MEDS ORDERED: NON FORMULARY DRUG (Esomeprazole Magnesium [Nexium 24hr] 20 MG) PO PRN (10:56)
[2019-07-19] MEDS ORDERED: ZOLPIDEM 5 MG TAB PO PRN (10:56)
--- NOTE | 2019-07-19 11:21 | P.GSCN ---
<Dorothy Cummins - Last Filed: 07/19/19 11:16> History of Present Illness Consult date: 07/19/19 Reason for Consult: SBO Requesting physician: Petey Mcfarland History of present illness: CHIEF COMPLAINT: Abdominal pain HISTORY OF PRESENT ILLNESS: 63-year-old female with a history of ovarian cancer diagnosed in 2005 who presented to the emergency room chief complaint of abdominal pain. Patient gives history of exploratory laparotomy in 2005. She reports starting a new oral chemo medication approximately 3 weeks ago. She reports chronic low magnesium and takes magnesium supplements at home which gives her chronic loose stools. She denies history of diverticulosis. She reports eating a bag of peanuts yesterday which she believes may have worsened her abdominal pain. Patient reports her pain began 2 days ago. She reports the pain is in the left upper and lower quadrant. She reports chronic nausea but states it is worse than her baseline. She reports an episode of bilious emesis yesterday. No further vomiting today. She reports feeling bloated. She had a semi-formed bowel movement this morning and is passing flatus. PAST MEDICAL HISTORY: See list. PAST SURGICAL HISTORY: See list. SOCIAL HISTORY: No illicit drug use. REVIEW OF SYSTEMS: CONSTITUTIONAL: Denies fever or chills. HEENT: Denies blurred vision, vision changes, or eye pain. Denies hemoptysis CARDIOVASCULAR: Denies chest pain or pressure. RESPIRATORY: No shortness of breath. GASTROINTESTINAL: Refer to HPI for pertinent findings HEMATOLOGIC: Denies bleeding disorders. GENITOURINARY: Denies any blood in urine. SKIN: Denies pruitis. Denies rash. PHYSICAL EXAM: VITAL SIGNS: Reviewed. GENERAL: Well-developed in no acute distress. HEENT: No sclera icterus. Extraocular movements grossly intact. Moist buccal mucosa. Head is atraumatic, normocephalic. ABDOMEN: Soft. Distended. Old healed midline scar. Mild diffuse abdominal pain with palpation, worse on the left. NEUROLOGIC: Alert and oriented. Cranial nerves II through XII grossly intact. LABORATORY DATA: WBC 6.4. Hemoglobin 10.3. Platelet count 166. Sodium 138. Potassium 4.0. BUN 18. Creatinine 0.97. Magnesium 1.5. IMAGING: Abdominal x-ray: Gas pattern is unremarkable as there is gas visualized throughout nondilated small and large bowel. However upright view shows scattered gas fluid levels and some bowel loop caliber is borderline enlarged. Possible developing small bowel obstruction. ASSESSMENT: 1. Abdominal pain 2. History of ovarian cancer PLAN: -Continue NPO except for ice chips and medications -Increase Zofran to every 6 hours PRN. Patient had home dose of Compazine ordered as well. -Add Reglan PRN -No surgical intervention recommended at this time -Dr. Milner will re-evaluate patient this afternoon Nurse practitioner note has been reviewed by physician. Signing provider agrees with the documented findings, assessment, and plan of care. Past Medical History Past Medical History: Cancer, Hypertension Additional Past Medical History / Comment(s): Ovarian cancer on PO chemo History of Any Multi-Drug Resistant Organisms: VRE Year Discovered:: 01/26/18 MDRO Source:: urine Past Surgical History: Hysterectomy Additional Past Surgical History / Comment(s): Bilateral oopherectomy/hysterectomy, 2 open exploratory abdominal surgery, R chest mediport placed 2011, bilateral retrograde pyelogram cystoscopy with R ureter stent and stent exchanges, jaws have pins d/t surgery for TMJ, colonoscopy. Right nephrosotomy tube placement 12/31 (still in place). Past Anesthesia/Blood Transfusion Reactions: No Reported Reaction Additional Past Anesthesia/Blood Transfusion Reaction / Comm: Pt has received blood in past without reaction. Date of Last Stent Placement:: 2011 Past Psychological History: Anxiety, Depression Additional Psychological History / Comment(s): Single and lives independently. She has a dog named Krossover. She drives. She has used [facility] in the recent past. Retired. Smoking Status: Never smoker Past Alcohol Use History: Occasional Additional Past Alcohol Use History / Comment(s): Patient is been a lifelong nonsmoker. She lives at home with a dog. Past Drug Use History: None Reported - Past Family History Mother Family Medical History: Cancer, Diabetes Mellitus Brother(s) Family Medical History: Cancer Additional Family Medical History / Comment(s): Lung cancer- since passed. Sister(s) Family Medical History: CVA/TIA Additional Family Medical History / Comment(s): 2 weeks ago. Father Family Medical History: Dementia, Neurologic Disorder Additional Family Medical History / Comment(s): Alzheimer's. Medications and Allergies Home Medications Medication Instructions Recorded Confirmed Type Gabapentin [Neurontin] 300 mg PO TID 10/17/17 07/18/19 History Zolpidem [Ambien] 5 mg PO HS PRN 09/14/18 07/18/19 History Hydrocodone/Acetaminophen [[place] 1 tab PO QID PRN 10/04/18 07/18/19 History 5-325] Escitalopram [Lexapro] 20 mg PO DAILY 12/19/18 07/18/19 History Folic Acid 0.4 mg PO DAILY 04/29/19 07/18/19 History Ondansetron HCl [Zofran] 8 mg PO Q8H PRN 05/09/19 07/18/19 History Prochlorperazine [Compazine] 10 mg PO TID PRN 05/09/19 07/18/19 History Magnesium Oxide [Mag-Ox] 400 mg PO TID #90 tab 05/14/19 07/18/19 Rx Diltiazem HCl [Cardizem] 120 mg PO DAILY 05/16/19 07/18/19 History Esomeprazole Magnesium [NexIUM 20 mg PO DAILY PRN 06/06/19 07/18/19 History 24Hr] Pantoprazole [Protonix] 40 mg PO DAILY #30 tablet. 06/12/19 07/18/19 Rx Levofloxacin [Levaquin] 250 mg PO DAILY 07/18/19 07/18/19 History Melatonin 10 mg PO HS 07/18/19 07/18/19 History Mirtazapine [Remeron] 45 mg PO HS 07/18/19 07/18/19 History Allergies Allergy/AdvReac Type Severity Reaction Status Date / Time adhesive Allergy Rash/Hives Verified 07/18/19 21:01 carboplatin Allergy Anaphylaxis Verified 07/18/19 21:01 ceftriaxone [From Rocephin] Allergy Itching Verified 07/18/19 21:01 iodine Allergy Rash/Hives Verified 07/18/19 21:01 Penicillins Allergy Rash/Hives Verified 07/18/19 21:01 codeine AdvReac Nausea & Verified 07/18/19 21:01 Vomiting morphine AdvReac Nausea & Verified 07/18/19 21:01 Vomiting Surgical - Exam Vital Signs Temp Pulse Resp BP Pulse Ox 98.7 F 118 H 18 136/72 98 07/18/19 18:37 07/18/19 18:37 07/18/19 18:37 07/18/19 18:37 07/18/19 18:37 Results - Labs 07/18/19 19:20 07/18/19 19:20 Abnormal Lab Results - Last 24 Hours (Table) 07/18/19 07/18/19 Range/Units 19:20 19:20 RBC 3.33 L (3.80-5.40) m/uL Hgb 10.3 L (11.4-16.0) gm/dL Hct 31.5 L (34.0-46.0) % Lymphocytes # 0.8 L (1.0-4.8) k/uL BUN 18 H (7-17) mg/dL Glucose 141 H (74-99) mg/dL Magnesium 1.5 L (1.6-2.3) mg/dL AST 38 H (14-36) U/L Diabetes panel 07/18/19 Range/Units 19:20 Sodium 138 (137-145) mmol/L Potassium 4.0 (3.5-5.1) mmol/L Chloride 101 (98-107) mmol/L Carbon Dioxide 28 (22-30) mmol/L BUN 18 H (7-17) mg/dL Creatinine 0.97 (0.52-1.04) mg/dL Glucose 141 H (74-99) mg/dL Calcium 9.3 (8.4-10.2) mg/dL AST 38 H (14-36) U/L ALT 27 (4-34) U/L Alkaline Phosphatase 117 (38-126) U/L Total Protein 6.4 (6.3-8.2) g/dL Albumin 3.5 (3.5-5.0) g/dL Calcium panel 07/18/19 Range/Units 19:20 Calcium 9.3 (8.4-10.2) mg/dL Albumin 3.5 (3.5-5.0) g/dL Pituitary panel 07/18/19 Range/Units 19:20 Sodium 138 (137-145) mmol/L Potassium 4.0 (3.5-5.1) mmol/L Chloride 101 (98-107) mmol/L Carbon Dioxide 28 (22-30) mmol/L BUN 18 H (7-17) mg/dL Creatinine 0.97 (0.52-1.04) mg/dL Glucose 141 H (74-99) mg/dL Calcium 9.3 (8.4-10.2) mg/dL Adrenal panel 07/18/19 Range/Units 19:20 Sodium 138 (137-145) mmol/L Potassium 4.0 (3.5-5.1) mmol/L Chloride 101 (98-107) mmol/L Carbon Dioxide 28 (22-30) mmol/L BUN 18 H (7-17) mg/dL Creatinine 0.97 (0.52-1.04) mg/dL Glucose 141 H (74-99) mg/dL Calcium 9.3 (8.4-10.2) mg/dL Total Bilirubin 0.3 (0.2-1.3) mg/dL AST 38 H (14-36) U/L ALT 27 (4-34) U/L Alkaline Phosphatase 117 (38-126) U/L Total Protein 6.4 (6.3-8.2) g/dL Albumin 3.5 (3.5-5.0) g/dL <Randy Milner - Last Filed: 07/19/19 11:44> History of Present Illness History of present illness: As above. Patient still having crampy abdominal discomfort and bloating. Suspect partial small bowel obstruction. We'll order CT abdomen and pelvis to better evaluate. Keep nothing by mouth. Surgical - Exam Vital Signs Temp Pulse Resp BP Pulse Ox 98.7 F 118 H 18 136/72 98 07/18/19 18:37 07/18/19 18:37 07/18/19 18:37 07/18/19 18:37 07/18/19 18:37 Results - Labs 07/18/19 19:20 07/18/19 19:20 Abnormal Lab Results - Last 24 Hours (Table) 07/18/19 07/18/19 Range/Units 19:20 19:20 RBC 3.33 L (3.80-5.40) m/uL Hgb 10.3 L (11.4-16.0) gm/dL Hct 31.5 L (34.0-46.0) % Lymphocytes # 0.8 L (1.0-4.8) k/uL BUN 18 H (7-17) mg/dL Glucose 141 H (74-99) mg/dL Magnesium 1.5 L (1.6-2.3) mg/dL AST 38 H (14-36) U/L Diabetes panel 07/18/19 Range/Units 19:20 Sodium 138 (137-145) mmol/L Potassium 4.0 (3.5-5.1) mmol/L Chloride 101 (98-107) mmol/L Carbon Dioxide 28 (22-30) mmol/L BUN 18 H (7-17) mg/dL Creatinine 0.97 (0.52-1.04) mg/dL Glucose 141 H (74-99) mg/dL Calcium 9.3 (8.4-10.2) mg/dL AST 38 H (14-36) U/L ALT 27 (4-34) U/L Alkaline Phosphatase 117 (38-126) U/L Total Protein 6.4 (6.3-8.2) g/dL Albumin 3.5 (3.5-5.0) g/dL Calcium panel 07/18/19 Range/Units 19:20 Calcium 9.3 (8.4-10.2) mg/dL Albumin 3.5 (3.5-5.0) g/dL Pituitary panel 07/18/19 Range/Units 19:20 Sodium 138 (137-145) mmol/L Potassium 4.0 (3.5-5.1) mmol/L Chloride 101 (98-107) mmol/L Carbon Dioxide 28 (22-30) mmol/L BUN 18 H (7-17) mg/dL Creatinine 0.97 (0.52-1.04) mg/dL Glucose 141 H (74-99) mg/dL Calcium 9.3 (8.4-10.2) mg/dL Adrenal panel 07/18/19 Range/Units 19:20 Sodium 138 (137-145) mmol/L Potassium 4.0 (3.5-5.1) mmol/L Chloride 101 (98-107) mmol/L Carbon Dioxide 28 (22-30) mmol/L BUN 18 H (7-17) mg/dL Creatinine 0.97 (0.52-1.04) mg/dL Glucose 141 H (74-99) mg/dL Calcium 9.3 (8.4-10.2) mg/dL Total Bilirubin 0.3 (0.2-1.3) mg/dL AST 38 H (14-36) U/L ALT 27 (4-34) U/L Alkaline Phosphatase 117 (38-126) U/L Total Protein 6.4 (6.3-8.2) g/dL Albumin 3.5 (3.5-5.0) g/dL
[2019-07-19] MEDS ORDERED: BARIUM SULFATE 450 ML ORAL.SUSP BOTTLE PO PRN (11:43)
[2019-07-19] MEDS: FOLIC ACID 1 MG TAB PO SCH (11:48)
[2019-07-19] MEDS: DILTIAZEM CD 120 MG CAP.ER.24H PO SCH (11:48)
[2019-07-19] MEDS: MAGNESIUM OXIDE 400 MG TAB PO SCH ×3 (11:48→21:05)
[2019-07-19] MEDS: ESCITALOPRAM 20 MG TAB PO SCH (11:48)
[2019-07-19] MEDS: GABAPENTIN 300 MG CAP PO SCH ×3 (11:48→21:04)
[2019-07-19] MEDS: LEVOFLOXACIN 250 MG TAB PO SCH (11:48)
[2019-07-19] MEDS: PANTOPRAZOLE 40 MG TABLET PO SCH (11:52)
[2019-07-19] MEDS: HYDROcodone/APAP 5-325MG 1 EACH TAB PO PRN (16:13)
--- NOTE | 2019-07-19 19:35 | HP ---
HISTORY AND PHYSICAL CHIEF COMPLAINT: Abdominal pain. HISTORY OF PRESENT ILLNESS: This is another recent admission for this 63-year-old white female who has enlarging ovarian carcinoma under treatment. She has been getting chemotherapy from a physician elsewhere. She started to have a crampy abdominal pain with nausea and vomiting and came to the emergency room once again. There was a concern for possible small-bowel obstruction and she was admitted. She has had no hematemesis, melena, etc. She has had no hematochezia. She has had a lot of difficulty because of ovarian carcinoma with constipation and obstruction of the right ureter where she has a ureterostomy. She denies fever and chills, hematemesis, etc. REVIEW OF SYSTEMS: Otherwise unremarkable. She has had no diarrhea. Her pain is under fairly good control. Past medical history, family history, personal and social histories are all essentially unchanged from her recent admitting and discharge summaries. ALLERGIES: SHE IS ALLERGIC TO CLINDAMYCIN, CARBOPLATIN, CARBITE, IODINE, PENICILLIN VK AND CODEINE. MEDICATIONS: That she has been on include Zofran, mirtazapine, chemotherapeutic agent [place], Protonix, gabapentin, magnesium, Lexapro, folic acid, and Xanax. Remainder of her history is unchanged from her recent hospitalization. PHYSICAL EXAMINATION: Blood pressure 110/58, pulse 96, respirations of 18 and she was afebrile. She was pale and chronically ill in appearance. Head, ears, eyes, nose, mouth, and throat were normal and neck veins not distended. Thyroid is not enlarged. Chest is clear. Cardiac exam demonstrates sinus rhythm. Abdomen is soft and there is a fullness in both lower quadrants above the pelvic rim. Bowel sounds are present. Extremities are normal. IMPRESSION: 1. Abdominal pain. 2. ? Ileus. 3. ? small bowel obstruction. 4. ? tumor related pain. 5. Carcinoma of the ovary. PLAN: 1. Bed rest. 2. IV fluids. 3. Analgesics. 4. Antiemetics. 5. Monitor for possible development of small-bowel obstruction. MMODL / IJN: [id number] /
--- NOTE | 2019-07-19 19:45 | PN ---
PROGRESS NOTE DATE OF SERVICE: 07/19/2019 CHIEF COMPLAINT: Abdominal pain, vomiting and dehydration. HISTORY OF PRESENT ILLNESS: This lady is still nauseated and still having significant generalized crampy abdominal pain. She denies fever and chills, etc. PHYSICAL EXAMINATION: She remains pale. Chest is clear. Cardiac exam is normal. Abdomen is soft and slightly distended and generally mildly tender. There is a fullness in the pelvis relating to her ovarian neoplasm. Extremities: Normal. Neurologically she is intact. IMPRESSION: 1. Abdominal pain with nausea and vomiting. 2. Possible bowel obstruction. 3. Advancing carcinoma of the ovary. 4. Hypertension. PLAN: Continue with IV fluids and monitoring of her abdominal pain and distention. MMODL / IJN: [id number] /
--- NOTE | 2019-07-19 20:16 | CT ---
EXAMINATION TYPE: CT abdomen pelvis wo con DATE OF EXAM: 07/19/2019 COMPARISON: 06/08/2019 INDICATION: abdominal pain, vomiting DLP: 355.3 mGycm, Automated exposure control for dose reduction was used. CONTRAST: 0 mL of Isovue 300. Study performed without Oral Contrast TECHNIQUE: Axial images were obtained from above the diaphragm to the pubic rami in the axial plane a t 5 mm thick sections. Reconstructed images are reviewed on the computer in the coronal plane. FINDINGS: Limited CT sections are obtained the lung bases. Minimal left pleural effusion is present.. CT ABDOMEN: No free air is evident. Liver: Normal Spleen: Normal Pancreas: Atrophic. Head of the pancreas is more normal appearance. There is some prominence of the c ommon bile duct. Adrenal glands: The adrenal glands are normal. Gallbladder: Mesenteric inflammatory changes are within the mesentery in the upper abdomen. This exte nds to the umbilical region and is within the lower anterior pelvis subcutaneous tissues. Correlate f or recent surgery. Kidneys: No masses are evident. No hydronephrosis is present. There is a right catheter kidney. No hy dronephrosis is evident. Left kidney appears normal. No cysts are present. Delayed images were obta ined through the kidneys, which remain unremarkable. Aorta: Vascular calcification is within the aorta. Inferior vena cava: Normal. CT PELVIS: There is dilated small bowel loops mid to lower abdomen. Colon has some air. This is nondilated. The studies performed without oral contrast, patient was unable tolerate oral contrast for the exam. Find ings are slightly more prominent than the June 08, 2019 exam. Appendix: Not identified. Urinary bladder: Decompressed and cannot be well evaluated. Genitourinary structures: Uterus and ovaries are not identified. Osseous structures: No suspicious lytic or sclerotic lesions. IMPRESSIONS: 1. Small bowel partial obstruction. There are dilated small bowel loops with nondilated loops of col on. Visible zone of transition is not identified. Dilated small bowel loops extend into the pelvis an d likely at least the mid ileum region. 2. Minimal left pleural effusion. A [place] critical message alert has been initiated for Kevin Metzger MD via the [employer] Critical Results System on 07/19/2019 8:14 PM. This message alert has been sent to Kevin Metzger MD via the preferences provided by the clinician for the receipt of Radiology Critical Findi ngs. Message ID [id number].
[2019-07-19] MEDS: MELATONIN 5 MG TABLET PO SCH (21:04)
[2019-07-19] MEDS: MIRTAZAPINE 45 MG TABLET PO SCH (21:04)
[2019-07-20] MEDS: HYDROmorphone 1 MG/ML 1 ML SYRINGE IVP PRN ×7 (01:15→23:01)
[2019-07-20] MEDS: SODIUM CHLORIDE 0.9% 1,000 ML IV SCH ×3 (04:51→21:22)
[2019-07-20] MEDS: PANTOPRAZOLE 40 MG TABLET PO SCH (08:13)
[2019-07-20] MEDS: LEVOFLOXACIN 250 MG TAB PO SCH (08:13)
[2019-07-20] MEDS: GABAPENTIN 300 MG CAP PO SCH ×3 (08:13→21:22)
[2019-07-20] MEDS: ESCITALOPRAM 20 MG TAB PO SCH (08:13)
[2019-07-20] MEDS: DILTIAZEM CD 120 MG CAP.ER.24H PO SCH (08:13)
[2019-07-20] MEDS: MAGNESIUM OXIDE 400 MG TAB PO SCH ×3 (08:14→21:22)
[2019-07-20] MEDS: FOLIC ACID 1 MG TAB PO SCH (08:19)
--- NOTE | 2019-07-20 13:39 | P.PN ---
Subjective Progress Note Date: 07/20/19 CHIEF COMPLAINT: Small bowel obstruction HISTORY OF PRESENT ILLNESS: The patient is a 63-year-old female admitted secondary to small bowel obstruction. She has history of recurrent cancer. She is passing flatus having bowel movements. Additional studies has been obtained. She reports feeling much better than yesterday. In fact, she is tolerating regular diet including egg salad sandwich. ROS: She is having bowel movements. No fevers or chills. No new chest pain. No productive sputum PHYSICAL EXAM: VITAL SIGNS: Reviewed CONSTITUTIONAL: Well developed and in no acute distress. EYES: Conjuctivae without sclera icterus. Extraocular movements grossly intact. HEAD, EARS, NOSE, THROAT: Moist buccal mucosa. Head is atraumatic, normocephalic. Hears conversational speech. No nasal drainage. NECK: Supple. No thyroidomegaly. RESPIRATORY: Non-labored respirations and equal bilateral excursions. CARDIOVASCULAR: Palpable 2+ radial pulses. Regular rate. Regular rhythm. ABDOMEN: Soft. No peritonitis. MUSCULOSKELETAL: No gross deformity of the lower extremities noted. No clubb ing. No cyanosis. SKIN: Good skin turgor. Well perfused. NEUROLOGIC: Cranial nerves I through XII grossly intact. No focal or lateralizing signs. PSYCH: Appropriate affect. Alert and oriented to person, place and time. CLINICAL LABS: White blood cell count normal 6.4 STUDIES: CT of the abdomen and pelvis independent review demonstrated persistent small bowel obstruction. Surgical changes along the left lower abdomen with scarring along the subcutaneous tissue identified. No free air identified. RADIOLOGY: Report of CT of the on the pelvis was reviewed confirming small bowel obstruction without definitive transition point. ASSESSMENT: 1. Small bowel obstruction 2. History of ovarian cancer PLAN: 1. She reports feeling much better. 2. She is tolerating diet. Diet as tolerated. Objective - Vital Signs Vital signs: Vital Signs Temp 98.8 F 07/20/19 12:00 Pulse 91 07/20/19 12:00 Resp 16 07/20/19 12:00 BP 128/73 07/20/19 12:00 Pulse Ox 96 07/20/19 12:00 Intake & Output 07/19/19 07/20/19 07/20/19 18:59 06:59 18:59 Intake Total 960 630 Balance 960 630 Intake: Intake, IV Titration 960 480 Amount Sodium Chloride 0.9% 1, 960 480 000 ml @ 120 mls/hr IV . Q8H20M [facility] Rx#:[id number] Oral 150 Other: Voiding Method Toilet Toilet # Voids 2 - Labs CBC & Chem 7: 07/18/19 19:20 07/18/19 19:20 Assessment and Plan (1) Small bowel obstruction Current Visit: Yes Status: Acute Code(s): K56.609 - UNSP INTESTNL OBST, UNSP TO PARTIAL VERSUS COMPLETE OBST SNOMED Code(s): 959672805 (2) Ovarian cancer Current Visit: No Status: Chronic Priority: Medium Code(s): C56.9 - MALIGNANT NEOPLASM OF UNSPECIFIED OVARY SNOMED Code(s): 574852067
[2019-07-20] MEDS: HYDROcodone/APAP 5-325MG 1 EACH TAB PO PRN ×2 (13:45→21:22)
--- NOTE | 2019-07-20 16:22 | PN ---
PROGRESS NOTE CHIEF COMPLAINT: Abdominal pain. HISTORY OF PRESENT ILLNESS: This lady is doing well and abdominal pain is almost gone. She has had no nausea, vomiting, and she has had a bowel movement and is passing gas. X-ray reported that she had an apparent bowel obstruction, but this does not seem to be the case. PHYSICAL EXAMINATION: She remains pale, chronically ill, which is usual for her at this time. Chest is clear. Cardiac exam is normal. Abdomen is soft and not particularly tender, particularly in the lower abdomen. There is fullness due to her neoplasm. IMPRESSION: 1. Abdominal pain. 2. Carcinoma of the ovary. 3. Hypertension. PLAN: We will advance her diet from liquids to regular, and if she can do well on this diet, we will send her home tomorrow. MMSUKI / ROBERTN: [id number] /
[2019-07-20] MEDS: MELATONIN 5 MG TABLET PO SCH (21:21)
[2019-07-20] MEDS: MIRTAZAPINE 45 MG TABLET PO SCH (21:22)
[2019-07-21] MEDS: HYDROmorphone 1 MG/ML 1 ML SYRINGE IVP PRN ×5 (01:57→21:50)
[2019-07-21] MEDS: SODIUM CHLORIDE 0.9% 1,000 ML IV SCH ×3 (05:46→21:44)
[2019-07-21] MEDS: MAGNESIUM OXIDE 400 MG TAB PO SCH ×3 (08:46→21:44)
[2019-07-21] MEDS: FOLIC ACID 1 MG TAB PO SCH (08:46)
[2019-07-21] MEDS: ESCITALOPRAM 20 MG TAB PO SCH (08:46)
[2019-07-21] MEDS: HYDROcodone/APAP 5-325MG 1 EACH TAB PO PRN ×2 (08:47→15:27)
[2019-07-21] MEDS: DILTIAZEM CD 120 MG CAP.ER.24H PO SCH (08:48)
[2019-07-21] MEDS: PANTOPRAZOLE 40 MG TABLET PO SCH (08:48)
[2019-07-21] MEDS: GABAPENTIN 300 MG CAP PO SCH ×3 (08:48→21:44)
--- NOTE | 2019-07-21 12:59 | PN ---
PROGRESS NOTE CHIEF COMPLAINT: Abdominal pain. HISTORY OF PRESENT ILLNESS: This lady was doing well yesterday and passing gas and stool. During the night she elevated her temperature to around 101. She did not have any chest pain, shortness of breath, sputum production, nausea, vomiting, diarrhea, urinary complaints, etc. PHYSICAL EXAMINATION: She is currently afebrile. She remains pale. Head, ears, eyes, nose, mouth, and throat were normal. Chest was clear. There are no rales or rhonchi. Cardiac exam is normal and the abdomen is unchanged. She is not tender. IMPRESSION: 1. Abdominal pain. 2. Advanced carcinoma of the ovary. 3. Fever, undetermined origin. PLAN: 1. Urine UA with culture. 2. Blood cultures. 3. Chest x-ray. 4. Cancel discharge for today. MMODL / IJN: [id number] /
--- NOTE | 2019-07-21 13:58 | P.PN ---
Subjective Progress Note Date: 07/21/19 CHIEF COMPLAINT: Small bowel obstruction HISTORY OF PRESENT ILLNESS: The patient is a 63-year-old female admitted secondary to small bowel obstruction and history of ovarian cancer. She is still passing flatus having bowel movements as she is tolerating regular diet. She is ambulating. She reports generalized body aches and back pain. No increased abdominal pain. No nausea or vomiting ROS: She is having bowel movements. No fevers or chills. No new chest pain. No productive sputum PHYSICAL EXAM: VITAL SIGNS: Reviewed CONSTITUTIONAL: Well developed and in no acute distress. EYES: Conjuctivae without sclera icterus. Extraocular movements grossly intact. HEAD, EARS, NOSE, THROAT: Moist buccal mucosa. Head is atraumatic, normocephalic. Hears conversational speech. No nasal drainage. NECK: Supple. No thyroidomegaly. RESPIRATORY: Non-labored respirations and equal bilateral excursions. CARDIOVASCULAR: Palpable 2+ radial pulses. Regular rate. Regular rhythm. ABDOMEN: Soft. No peritonitis. MUSCULOSKELETAL: No gross deformity of the lower extremities noted. No clubbing. No cyanosis. SKIN: Good skin turgor. Well perfused. NEUROLOGIC: Cranial nerves I through XII grossly intact. No focal or lateralizing signs. PSYCH: Appropriate affect. Alert and oriented to person, place and time. CLINICAL LABS: White blood cell count normal 6.4 ASSESSMENT: 1. Small bowel obstruction 2. History of ovarian cancer PLAN: 1. Continue diet as tolerated 2. Follow films tomorrow with abdominal xrays Objective - Vital Signs Vital signs: Vital Signs Temp 98.1 F 07/21/19 11:58 Pulse 85 07/21/19 11:58 Resp 18 07/21/19 11:58 BP 109/71 07/21/19 11:58 Pulse Ox 96 07/21/19 11:58 Intake & Output 07/20/19 07/21/19 07/21/19 17:59 06:59 18:59 Intake Total Output Total Balance Intake: Intake, IV Titration Amount Sodium Chloride 0.9% 1, 000 ml @ 120 mls/hr IV . Q8H20M [facility] Rx#:[id number] Oral Output: Stool Emesis Other: Voiding Method # Voids - Labs CBC & Chem 7: 07/18/19 19:20 07/18/19 19:20 Assessment and Plan (1) Small bowel obstruction Current Visit: Yes Status: Acute Code(s): K56.609 - UNSP INTESTNL OBST, UNSP TO PARTIAL VERSUS COMPLETE OBST SNOMED Code(s): 849480260 (2) Ovarian cancer Current Visit: No Status: Chronic Priority: Medium Code(s): C56.9 - MA LIGNANT NEOPLASM OF UNSPECIFIED OVARY SNOMED Code(s): 631588090
[2019-07-21 14:53] LABS: Appearance,Urine Clear (Clear); Bacteria,Urine Rare /hpf; Bilirubin,Urine Negative (Negative); Blood,Urine Moderate (Negative); Color,Urine Yellow; Glucose,Urine (UA) Negative (Negative); Hyaline Casts,Urine 3 /lpf (0-2); Ketones,Urine Negative (Negative); Leukocyte Esterase,Urine Negative (Negative); Mucus,Urine Occasional /hpf; Nitrite,Urine Negative (Negative); PH, Urine 5.5 (5.0-8.0); Protein,Urine Trace (Negative); RBC,Urine 30 /hpf (0-5); Specific Gravity,Urine 1.014 (1.001-1.035); Squamous Epithelial Cell,Urine <1 /hpf (0-4); Urobilinogen,Urine <2.0 mg/dL (<2.0); WBC,Urine 2 /hpf (0-5)
--- NOTE | 2019-07-21 15:10 | XR ---
EXAMINATION TYPE: XR chest 2V DATE OF EXAM: 07/21/2019 COMPARISON: 06/06/2019 and 07/18/2019. HISTORY: Fever TECHNIQUE: FINDINGS: There is blunting left costophrenic angle. There is airspace infiltrate and atelectasis in the lingula of the left upper lobe. There is a 4 cm masslike density at the left pulmonary hilum. Rig ht lung is clear. There is no heart failure. There is also mild infiltrate lateral left lung base. There is right side central venous catheter with tip in the superior vena cava. IMPRESSION: Increasing left side pulmonary infiltrate and atelectasis compared to last exam. No heart failure seen.
[2019-07-21] MEDS: LEVOFLOXACIN 500 MG TAB PO SCH (16:35)
[2019-07-21] MEDS: ONDANSETRON 4 MG/2 ML VIAL IVP PRN (17:13)
[2019-07-21 17:30] VITALS: RESP 16
[2019-07-21] MEDS: IPRATROPIUM-ALBUTEROL 3 ML NEB INHALATION SCH ×2 (18:55→19:43)
[2019-07-21] MEDS: MIRTAZAPINE 45 MG TABLET PO SCH (21:44)
[2019-07-21] MEDS: MELATONIN 5 MG TABLET PO SCH (21:50)
[2019-07-22] MEDS: HYDROcodone/APAP 5-325MG 1 EACH TAB PO PRN ×3 (01:46→21:36)
[2019-07-22] MEDS: HYDROmorphone 1 MG/ML 1 ML SYRINGE IVP PRN ×6 (02:57→23:17)
[2019-07-22] MEDS: FOLIC ACID 1 MG TAB PO SCH (07:48)
[2019-07-22] MEDS: PANTOPRAZOLE 40 MG TABLET PO SCH (07:48)
[2019-07-22] MEDS: DILTIAZEM CD 120 MG CAP.ER.24H PO SCH (07:48)
[2019-07-22] MEDS: MAGNESIUM OXIDE 400 MG TAB PO SCH ×3 (07:48→21:36)
[2019-07-22] MEDS: GABAPENTIN 300 MG CAP PO SCH ×3 (07:48→21:35)
[2019-07-22] MEDS: ESCITALOPRAM 20 MG TAB PO SCH (07:48)
[2019-07-22] MEDS: IPRATROPIUM-ALBUTEROL 3 ML NEB INHALATION SCH ×4 (08:03→19:07)
[2019-07-22] MEDS: SODIUM CHLORIDE 0.9% 1,000 ML IV SCH ×2 (09:38→14:28)
--- NOTE | 2019-07-22 10:28 | P.PN ---
<Dorothy Cummins - Last Filed: 07/22/19 10:26> Subjective Progress Note Date: 07/22/19 CHIEF COMPLAINT: Abdominal pain HISTORY OF PRESENT ILLNESS: Patient examined at the bedside. Family present. Patient denies abdominal pain. Denies nausea. She is tolerating diet, although intake decreased secondary to patient not liking many of the food options at the hospital. She is passing flatus. PHYSICAL EXAM: VITAL SIGNS: Reviewed. GENERAL: Well-developed in no acute distress. HEENT: No sclera icterus. Extraocular movements grossly intact. Moist buccal m ucosa. Head is atraumatic, normocephalic. ABDOMEN: Soft. Minimal distention. Positive bowel sounds. NEUROLOGIC: Alert and oriented. Cranial nerves II through XII grossly intact. ASSESSMENT: 1. Abdominal pain 2. History of ovarian cancer PLAN: -Continue diet as tolerated -Abdominal xray ordered this morning per Dr. Briscoe. Await results Nurse practitioner note has been reviewed by physician. Signing provider agrees with the documented findings, assessment, and plan of care. Objective - Vital Signs Vital signs: Vital Signs Temp 97.4 F L 07/22/19 05:00 Pulse 88 07/22/19 05:00 Resp 16 07/22/19 05:00 BP 122/58 07/22/19 05:00 Pulse Ox 90 L 07/22/19 05:00 Intake & Output 07/21/19 07/22/19 07/22/19 18:59 06:59 18:59 Intake Total 960 590 Output Total 0 0 Balance 960 590 Intake: Intake, IV Titration 720 Amount Sodium Chloride 0.9% 1, 720 000 ml @ 120 mls/hr IV . Q8H20M [facility] Rx#:[id number] Oral 240 590 Output: Stool 0 0 Other: Voiding Method Toilet Toilet Toilet # Voids 2 2 - Labs CBC & Chem 7: 07/18/19 19:20 07/18/19 19:20 Labs: Abnormal Lab Results - Last 24 Hours (Table) 07/21/19 Range/Units Unknown Urine Protein Trace H (Negative) Urine Blood Moderate H (Negative) Urine RBC 30 H (0-5) /hpf Urine Bacteria Rare H (None) /hpf Hyaline Casts 3 H (0-2) /lpf Urine Mucus Occasional H (None) /hpf <Randy Milner Last Filed: 07/22/19 17:12> Subjective As above. Patient doing better today. X-rays appear improved. Continued low fiber diet. May discharge. Follow-up with gynecologic oncology. Objective - Vital Signs Vital signs: Vital Signs Temp 99.4 F 07/22/19 11:49 Pulse 90 07/22/19 16:04 Resp 16 07/22/19 11:49 BP 121/57 07/22/19 11:49 Pulse Ox 92 L 07/22/19 11:49 Intake & Output 07/21/19 07/22/19 07/22/19 18:59 06:59 18:59 Intake Total 960 590 Output Total 0 0 0 Balance 960 590 0 Intake: Intake, IV Titration 720 Amount Sodium Chloride 0.9% 1, 720 000 ml @ 120 mls/hr IV . Q8H20M [facility] Rx#:[id number] Oral 240 590 Output: Stool 0 0 0 Other: Voiding Method Toilet Toilet Toilet # Voids 2 2 - Labs CBC & Chem 7: 07/18/19 19:20 07/18/19 19:20 Labs: Microbiology - Last 24 Hours (Table) 07/21/19 13:00 Blood Culture - Preliminary Blood No Growth after 24 hours 07/21/19 13:03 Blood Culture - Preliminary Blood No Growth after 24 hours
--- NOTE | 2019-07-22 14:58 | XR ---
EXAMINATION TYPE: XR abdomen 2V DATE OF EXAM: 07/22/2019 1:55 PM CLINICAL HISTORY: Abdominal pain TECHNIQUE: Upright and supine images of the abdomen is obtained. COMPARISON: 05/16/2019 FINDINGS: Right-sided percutaneous drain is seen as well as numerous surgical clips scattered through out the abdomen. Very mild dextroscoliosis of the lumbar spine. Lung bases are overall well aerated. No dilated large or small bowel. No evidence of pneumoperitoneum. Few scattered air-fluid levels are seen on the upright view in nondilated small bowel. IMPRESSION: Few scattered air-fluid levels in nondilated small bowel in the upright view, likely ileu s.
[2019-07-22] MEDS: LEVOFLOXACIN 500 MG TAB PO SCH (16:17)
[2019-07-22] MEDS: ONDANSETRON 4 MG/2 ML VIAL IVP PRN (19:29)
--- NOTE | 2019-07-22 19:49 | PN ---
PROGRESS NOTE CHIEF COMPLAINT: Abdominal pain. HISTORY OF PRESENT ILLNESS: This lady is doing fairly well and she is being seen by Infectious Disease. We are awaiting cultures because of her temperature of the night before last. She is not vomiting and she is passing gas. PHYSICAL EXAMINATION: Chest is clear. Cardiac exam is normal and the abdomen is still firm in the lower quadrants. Bowel sounds are present. IMPRESSION: 1. Abdominal pain. 2. Fever, undetermined etiology. PLAN: Continue with current treatment and await cultures as well as input from Infectious Disease. MMODL / IJN: [id number] /
[2019-07-22] MEDS: MELATONIN 5 MG TABLET PO SCH (21:35)
[2019-07-22] MEDS: MIRTAZAPINE 45 MG TABLET PO SCH (21:38)
[2019-07-23] MEDS: HYDROmorphone 1 MG/ML 1 ML SYRINGE IVP PRN ×4 (03:56→15:08)
[2019-07-23] MEDS: IPRATROPIUM-ALBUTEROL 3 ML NEB INHALATION SCH ×3 (07:35→15:33)
[2019-07-23] MEDS: DILTIAZEM CD 120 MG CAP.ER.24H PO SCH (08:04)
[2019-07-23] MEDS: GABAPENTIN 300 MG CAP PO SCH (08:04)
[2019-07-23] MEDS: ESCITALOPRAM 20 MG TAB PO SCH (08:04)
[2019-07-23] MEDS: FOLIC ACID 1 MG TAB PO SCH (08:04)
[2019-07-23] MEDS: PANTOPRAZOLE 40 MG TABLET PO SCH (08:04)
[2019-07-23] MEDS: MAGNESIUM OXIDE 400 MG TAB PO SCH (08:05)
[2019-07-23] MEDS: HYDROcodone/APAP 5-325MG 1 EACH TAB PO PRN (10:06)
[2019-07-23] MEDS: SODIUM CHLORIDE 0.9% 1,000 ML IV SCH ×3 (11:54→12:58)
--- NOTE | 2019-07-23 13:07 | P.PN ---
<PlacidoSolDorothy A - Last Filed: 07/23/19 13:04> Subjective Progress Note Date: 07/23/19 CHIEF COMPLAINT: Abdominal pain HISTORY OF PRESENT ILLNESS: Patient examined at the bedside. Patient denies abdominal pain. Tolerating diet. Denies nausea or vomiting. Passing flatus and having bowel movements. PHYSICAL EXAM: VITAL SIGNS: Reviewed. GENERAL: Well-developed in no acute distress. HEENT: No sclera icterus. Extraocular movements grossly intact. Moist buccal mucosa. Head is atraumatic, normocephalic. ABDOMEN: Soft. No distention. Positive bowel sounds. NEUROLOGIC: Alert and oriented. Cranial nerves II through XII grossly intact. ASSESSMENT: 1. Abdominal pain 2. History of ovarian cancer PLAN: -Continue diet as tolerated -Stable for discharge from a surgical standpoint Nurse practitioner note has been reviewed by physician. Signing provider agrees with the documented findings, assessment, and plan of care. Objective - Vital Signs Vital signs: Vital Signs Temp 98.6 F 07/23/19 05:00 Pulse 88 07/23/19 11:39 Resp 16 07/23/19 05:00 BP 119/57 07/23/19 05:00 Pulse Ox 96 07/23/19 05:00 Intake & Output 07/22/19 07/23/19 07/23/19 18:59 06:59 18:59 Intake Total 1440 Output Total 0 Balance 0 1440 Intake: Intake, IV Titration 1440 Amount Sodium Chloride 0.9% 1, 1440 000 ml @ 120 mls/hr IV . Q8H20M [facility] Rx#:[id number] Output: Stool 0 Other: Voiding Method Toilet Toilet Toilet # Voids 3 2 # Bowel Movements 1 - Labs CBC & Chem 7: 07/18/19 19:20 07/18/19 19:20 Labs: Microbiology - Last 24 Hours (Table) 07/21/19 13:00 Blood Culture - Preliminary Blood No Growth after 24 hours 07/21/19 13:03 Blood Culture - Preliminary Blood No Growth after 24 hours <Randy Milner - Last Filed: 07/23/19 16:57> Objective - Vital Signs Vital signs: Vital Signs Temp 98.7 F 07/23/19 13:00 Pulse 79 07/23/19 13:00 Resp 16 07/23/19 13:00 BP 91/56 07/23/19 13:00 Pulse Ox 92 L 07/23/19 13:00 Intake & Output 07/22/19 07/23/19 07/23/19 18:59 06:59 18:59 Intake Total 1440 Output Total 0 Balance 0 1440 Intake: Intake, IV Titration 1440 Amount Sodium Chloride 0.9% 1, 1440 000 ml @ 120 mls/hr IV . Q8H20M [facility] Rx#:[id number] Output: Stool 0 Other: Voiding Method Toilet Toilet Toilet # Voids 3 2 # Bowel Movements 1 - Labs CBC & Chem 7: 07/18/19 19:20 07/18/19 19:20 Labs: Microbiology - Last 24 Hours (Table) 07/21/19 13:00 Blood Culture - Preliminary Blood No Growth after 48 hours 07/21/19 13:03 Blood Culture - Preliminary Blood No Growth after 48 hours
[2019-07-23 14:18] VITALS: BP 91/56; PULSE 79; TEMP 98.7
--- NOTE | 2019-07-24 08:47 | DS ---
DISCHARGE SUMMARY CHIEF COMPLAINT: Abdominal pain. HISTORY OF PRESENT ILLNESS AND PHYSICAL EXAM: Details of this lady's history and physical can be found in the initial workup. LABORATORY STUDIES: While she was in a hospital she had laboratory studies, details of which can be found laboratory section of her chart. COURSE IN THE HOSPITAL: After admission she was placed on bedrest, started on intravenous fluids and kept n.p.o. Initial studies indicated that she may have a small-bowel obstruction. However, the next day she started to pass stool and gas and never developed obstructive symptoms. She has steadily improved, but then she started to run a temperature one night. She had no cough, urinary complaints, abdominal pain, chest pain, etc. Temperature subsided. There was concern that this could be related to her ureterostomy tube or some other source. Cultures were negative. She was doing well and it was felt she could be discharged on the and she will go home to be seen in the office in several days. She will be sent home on Levaquin. FINAL DIAGNOSES: 1. Abdominal pain and incomplete or partial small-bowel obstruction. 2. Carcinoma of the ovary, advanced. 3. Dehydration. 4. Fever, undetermined origin. OPERATIONS: None. CONSULTATIONS: Surgery and Pulmonology. She is improved. MMODL / IJN: [id number] /
--- NOTE | 2019-07-26 10:04 | CDI ---
Documentation Clarification Form Date: 07/26/2019 09:37:41 AM From: Nina Daugherty Phone: If you have a question about this query, please contact Rima Arriaga [employer] at [phone] between 8am and 5pm. Admit Date: 07/18/2019 08:52:00 PM Patient Name: Jesusita Galloway Visit Number: [id number] Discharge Date: 07/23/2019 03:55:00 PM ATTENTION: The Clinical Documentation Specialists (CDI) and [facility] Coding Staff appreciate your assistance in clarifying documentation. Please respond to the clarification below the line at the bottom and electronically sign. The CDI & [facility] Coding staff will review the response and follow-up if needed. Please note: Queries are made part of the Legal Health Record. If you have any questions, please contact the author of this message via ITS. Dr. Kevin Metzger The patient presented with abdominal pain due to developing SBO. Patient with recurrent ovarian cancer. Patient has had hysterectomy and bilateral oopherectomy. Nephrostomy in place for obstruction of ureter. Please clarify the reason for the bowel obstruction. History/Risk Factors: ovarian cancer, previous surgeries abdominal Radiology findings: likely ileus Vital Signs: 98.7 F, 118 bpm, 18, 136/72 98% RA Consults: Surgical Treatment: Bed rest, IV fluids anal gesics, antiemetics Monitor In your professional opinion, can you please clarify cause of early bowel obstruction? ovarian cancer previous surgeries Other, please specify Unable to determine MTDD
--- NOTE | 2019-07-26 11:21 | MISC ---
MISCELLANOUS REPORT QUERY: Bowel obstruction due to ovarian cancer. MMODL / IJN: [id number] /
== END 2019-07-23 15:55 | disposition home or self-care (01) | DRG 755 ==
LOC: EC 18:36 → 5NMEDONC 20:52
PROVIDERS: ADMIT Family Medicine; ATTEND Family Medicine
DX: C56.9 Malignant neoplasm of unspecified ovary (principal); K56.600 Partial intestinal obstruction, unspecified as to cause; E86.0 Dehydration; G89.3 Neoplasm related pain (acute) (chronic); I10 Essential (primary) hypertension; Z79.899 Other long term (current) drug therapy; Z80.1 Family history of malignant neoplasm of trachea, bronchus and lung; Z82.0 Family history of epilepsy and other diseases of the nervous system; Z83.3 Family history of diabetes mellitus; Z90.710 Acquired absence of both cervix and uterus; Z90.722 Acquired absence of ovaries, bilateral; R50.9 Fever, unspecified; Z93.6 Other artificial openings of urinary tract status; Z82.3 Family history of stroke; Z88.1 Allergy status to other antibiotic agents; Z88.5 Allergy status to narcotic agent; Z88.0 Allergy status to penicillin; F41.9 Anxiety disorder, unspecified; E83.42 Hypomagnesemia; F32.9 Major depressive disorder, single episode, unspecified
CPT/HCPCS: 36415; 71046; 74019; 74022; 74176; 80053; 81001; 83605; 83735; 85025; 87040; 93005; 94640; 96361; 96365; 96375; 99285

== ENCOUNTER → 2019-07-24 | Day surgery (SDC) | payer MEDICARE ==
--- NOTE | 2019-07-23 08:45 | P.GSHP ---
History of Present Illness H&P Date: 07/23/19 Chief Complaint: Right hydronephrosis The patient is a 63-year-old female well known to me. She has a history of ovarian cancer which has been present for over 10 years and recurred in the right retroperitoneum and resulted in right hydronephrosis. I initially evaluated her in October 2017 and she underwent placement of a right double-J catheter. She had several enterococcus urinary tract infections over the fall of 2017. Her right double-J catheter was exchanged in [facility] in 04/2018. The stent was last exchanged by Dr. Unger in late 07/2018. She had several enterococcus urinary tract infections this spring and received Invanz as antibiotic treatment. Urine culture on 10/09 and again on 10/[address] scan of the abdomen and pelvis on 10/01 showed no evidence of right hydronephrosis and good position of the right double-J catheter. Patient was s een in the office on 10/22 and at that time she was complaining of urinary frequency which had not responded well to Myrbetriq and tamsulosin. She was subsequently hospitalized and ultrasound showed evidence of right hydronephrosis. She underwent right ureteral stent change on November 02, 2018. She was admitted in December 2018 for abdominal pain, right flank pain, nausea, and vomiting. She was treated with IV hydration and parenteral analgesics. Her urine culture was again negative. I reviewed her KUB x-ray, which shows that her stent has migrated distally, leaving the proximal end of the stent within the right proximal ureter. At the time of initial stent placement in October 2017, a retrograde pyelogram indicated that the obstruction was within the right proximal ureter. Attempted replacement of the stent in December 2018 was unsuccessful, and therefore a nephrostomy tube was placed. She now comes for a nephrostomy tube change. - Constitutional Constitutional: Denies chills, Denies fever Past Medical History Past Medical History: Cancer, Hypertension Additional Past Medical History / Comment(s): Ovarian cancer on PO chemo History of Any Multi-Drug Resistant Organisms: VRE Date of last positivie culture/infection: 01/26/18 MDRO Source:: urine Past Surgical History: Hysterectomy Additional Past Surgical History / Comment(s): Bilateral oopherectomy/ hysterectomy, 2 open exploratory abdominal surgery, R chest mediport placed 2011, bilateral retrograde pyelogram cystoscopy with R ureter stent and stent exchanges, jaws have pins d/t surgery for TMJ, colonoscopy. Right nephrosotomy tube placement 12/31 (still in place). Past Anesthesia/Blood Transfusion Reactions: No Reported Reaction Additional Past Anesthesia/Blood Transfusion Reaction / Comment(s): Pt has received blood in past without reaction. Date of Last Stent Placement:: 2011 Past Psychological History: Anxiety, Depression Smoking Status: Never smoker Past Alcohol Use History: Occasional Past Drug Use History: None Reported - Past Family History Mother Family Medical History: Cancer, Diabetes Mellitus Brother(s) Family Medical History: Cancer Additional Family Medical History / Comment(s): Lung cancer- since passed. Sister(s) Family Medical History: CVA/TIA Additional Family Medical History / Comment(s): 2 weeks ago. Father Family Medical History: Dementia, Neurologic Disorder Additional Family Medical History / Comment(s): Alzheimer's. Medications and Allergies Home Medications Medication Instructions Recorded Confirmed Type Gabapentin [Neurontin] 300 mg PO TID 10/17/17 07/18/19 History Zolpidem [Ambien] 5 mg PO HS PRN 09/14/18 07/18/19 History Hydrocodone/Acetaminophen [Jewett 1 tab PO QID PRN 10/04/18 07/18/19 History 5-325] Escitalopram [Lexapro] 20 mg PO DAILY 12/19/18 07/18/19 History Folic Acid 0.4 mg PO DAILY 04/29/19 07/18/19 History Ondansetron HCl [Zofran] 8 mg PO Q8H PRN 05/09/19 07/18/19 History Prochlorperazine [Compazine] 10 mg PO TID PRN 05/09/19 07/18/19 History Magnesium Oxide [Mag-Ox] 400 mg PO TID #90 tab 05/14/19 07/18/19 Rx Diltiazem HCl [Cardizem] 120 mg PO DAILY 05/16/19 07/18/19 History Esomeprazole Magnesium [NexIUM 20 mg PO DAILY PRN 06/06/19 07/18/19 History 24Hr] Pantoprazole [Protonix] 40 mg PO DAILY #30 tablet. 06/12/19 07/18/19 Rx Levofloxacin [Levaquin] 250 mg PO DAILY 07/18/19 07/18/19 History Melatonin 10 mg PO HS 07/18/19 07/18/19 History Mirtazapine [Remeron] 45 mg PO HS 07/18/19 07/18/19 History Allergies Allergy/AdvReac Type Severity Reaction Status Date / Time adhesive Allergy Rash/Hives Verified 07/18/19 21:01 carboplatin Allergy Anaphylaxis Verified 07/18/19 21:01 ceftriaxone [From Rocephin] Allergy Itching Verified 07/18/19 21:01 iodine Allergy Rash/Hives Verified 07/18/19 21:01 Penicillins Allergy Rash/Hives Verified 07/18/19 21:01 codeine AdvReac Nausea & Verified 07/18/19 21:01 Vomiting morphine AdvReac Nausea & Verified 07/18/19 21:01 Vomiting Surgical - Exam - General well developed, well nourished, no distress - Respiratory normal respiratory effort - Abdomen Abdomen: soft, non tender, no guarding, no rigid, no rebound - Psychiatric oriented to time, oriented to person, oriented to place, speech is normal, memory intact Assessment and Plan (1) Hydronephrosis Status: Acute Code(s): N13.30 - UNSPECIFIED HYDRONEPHROSIS SNOMED Code(s): 46456179 Plan: Right nephrostomy tube change. If this is uncomplicated, this will be performed as an outpatient. However, she will remain hospitalized overnight for observation if warranted.
[~2019-07-24] MED LIST changes: +CIPROFLOXACIN/DEXTROSE PMX 400 MG in DEXTROSE/WATER 1 200ML.BAG IVPB STA; +IOPAMIDOL-300 50ML BTL INJ ONE; -IOPAMIDOL-370 50ML BTL INJ ONE; -LEVOFLOXACIN 500MG-D5W PMX 500 MG in DEXTROSE/WATER 1 100ML.BAG IVPB ONE; -MIDAZOLAM 2 MG/2 ML VIAL IV ONE; -SODIUM CHLORIDE 0.9% 1,000 ML in EMPTY BAG 1 BAG IV ONE; +SODIUM CHLORIDE 0.9% 500 ML 500 ML IV ONE; -fentaNYL (PF) 50 MCG/ML 2 ML AMP IV ONE
[2019-07-24 08:40] VITALS: RESP 16; TEMP 98.3
[2019-07-24 10:10] VITALS: BP 136/62; PULSE 89
--- NOTE | 2019-07-24 11:50 | IR ---
Nephrostomy tube exchange HISTORY: Hydronephrosis, right ureteral obstruction Patient's indwelling catheter was prepped and draped in a sterile fashion. Lidocaine was used for loc al anesthesia. General hand injection of contrast material was performed. Catheter was cut and remove d over a wire. 8.5 Martiniquais tube was advanced over the wire into the renal collecting system. Catheter was fixed in place. Sterile dressing was placed. 2-0 silk was utilized to fix the catheter to the sk in. Catheter attached to gravity drainage. Hemostasis achieved. 62 Images document the procedure. No immediate complication. Hemostasis achieved. 0.8 minutes fluoros copy time. IMPRESSION: Status post 8.5 nephrostomy tube exchange.
== END ==
LOC: OR 08:03
PROVIDERS: ATTEND Radiology Diagnostic Radiology
DX: N13.1 Hydronephrosis with ureteral stricture, not elsewhere classified (principal); Z85.43 Personal history of malignant neoplasm of ovary; Z86.19 Personal history of other infectious and parasitic diseases; Z87.440 Personal history of urinary (tract) infections; I10 Essential (primary) hypertension; Z92.21 Personal history of antineoplastic chemotherapy; Z79.899 Other long term (current) drug therapy; Z90.710 Acquired absence of both cervix and uterus; Z98.890 Other specified postprocedural states; F32.9 Major depressive disorder, single episode, unspecified; F41.9 Anxiety disorder, unspecified; Z80.1 Family history of malignant neoplasm of trachea, bronchus and lung; Z82.49 Family history of ischemic heart disease and other diseases of the circulatory system; Z83.3 Family history of diabetes mellitus; Z82.0 Family history of epilepsy and other diseases of the nervous system; Z81.8 Family history of other mental and behavioral disorders; Z79.2 Long term (current) use of antibiotics; Z91.048 Other nonmedicinal substance allergy status; Z88.8 Allergy status to other drugs, medicaments and biological substances; Z88.0 Allergy status to penicillin; Z88.5 Allergy status to narcotic agent; Z88.1 Allergy status to other antibiotic agents
CPT/HCPCS: 75984; 50435; C1729; C1769; J2001; J0744; Q9967

== ENCOUNTER 2019-07-29 14:58 | Day surgery (SDC) | payer MEDICARE ==
[2019-07-29 15:46] VITALS: BP 134/88; PULSE 100; RESP 14; TEMP 98.2
== END 2019-07-29 15:45 | disposition home or self-care (01) ==
LOC: RADPROMAIN 14:58
PROVIDERS: ATTEND Radiology Diagnostic Radiology
DX: Z48.03 Encounter for change or removal of drains (principal)
CPT/HCPCS: 99213

== ENCOUNTER 2019-08-05 15:15 | Day surgery (SDC) | payer MEDICARE ==
[2019-08-05 16:12] VITALS: BP 114/74; PULSE 96; RESP 14; TEMP 98.6
== END 2019-08-05 15:55 | disposition home or self-care (01) ==
LOC: RADPROMAIN 15:15
PROVIDERS: ATTEND Radiology Diagnostic Radiology
DX: Z48.03 Encounter for change or removal of drains (principal); Z93.6 Other artificial openings of urinary tract status
CPT/HCPCS: 99213

== ENCOUNTER 2019-09-16 14:50 | Emergency (ER) | payer MEDICARE ==
[2019-09-16] MEDS ORDERED: SODIUM CHLORIDE 0.9% 500 ML 500 ML IV STA (15:31)
[2019-09-16] MEDS ORDERED: HYDROmorphone 1 MG/ML 1 ML SYRINGE IVP STA (15:32)
[2019-09-16 16:30] LABS: Appearance,Urine Cloudy (Clear); Bacteria,Urine Many /hpf; Bilirubin,Urine Negative (Negative); Blood,Urine Small (Negative); Budding Yeast,Urine Occasional /hpf; Color,Urine Yellow; Glucose,Urine (UA) Negative (Negative); Ketones,Urine Negative (Negative); Leukocyte Esterase,Urine Trace (Negative); Mucus,Urine Moderate /hpf; Nitrite,Urine Negative (Negative); PH, Urine 6.5 (5.0-8.0); Protein,Urine 1+ (Negative); RBC,Urine 44 /hpf (0-5); Specific Gravity,Urine 1.014 (1.001-1.035); Squamous Epithelial Cell,Urine <1 /hpf (0-4); Urobilinogen,Urine <2.0 mg/dL (<2.0); WBC,Urine 3 /hpf (0-5)
--- NOTE | 2019-09-16 16:34 | XR ---
EXAMINATION TYPE: XR chest 1V portable DATE OF EXAM: 09/16/2019 HISTORY: Shortness of breath. COMPARISON: July 21, 2019 TECHNIQUE: Single view of the chest is submitted. FINDINGS: Demonstrated are scattered senescent parenchymal change. There is improving aeration left lower lobe however there is persistent atelectasis or infiltrate. Pl eural effusion appears to have diminished in size. Persistent opacity left hilum may reflect underlyi ng mass. Skin fold right lung noted. The heart is stable. Hilar and mediastinal structures are within normal limits. Degenerative changes are seen of the dorsal spine. IMPRESSION: 1. There is improving aeration left lower lobe however there is persistent atelectasis or infiltrate . Pleural effusion appears to have diminished in size. Persistent opacity left hilum may reflect unde rlying mass.
[2019-09-16 16:38] LABS: Anisocytosis Slight; HCT 28.7 % (34.0-46.0); HGB 9.6 gm/dL (11.4-16.0); MCH 30.8 pg (25.0-35.0); MCHC 33.4 g/dL (31.0-37.0); MCV 92.4 fL (80.0-100.0); Mean Platelet Volume 10.6; Platelet Count 132 k/uL (150-450); RBC 3.11 m/uL (3.80-5.40); RDW 16.1 % (11.5-15.5)
[2019-09-16 16:42] LABS: WBC 0.5 k/uL (3.8-10.6)
[2019-09-16 16:44] LABS: INR 0.9 (<1.2); Partial Thromboplastin Time 24.2 sec (22.0-30.0); Prothrombin Time 9.7 sec (9.0-12.0)
--- NOTE | 2019-09-16 16:45 | ED ---
General Adult HPI - General Chief complaint: Shortness of Breath Stated complaint: Diff Breathing Time Seen by Provider: 09/16/19 15:05 Source: EMS Mode of arrival: EMS Limitations: altered mental status - History of Present Illness Initial comments: The patient is a 64 year old female with advanced ovarian cancer who presents to the emergency department after she had an unresponsive episode at home. Per the patient's daughter, Michelle Hutton she had thought that her mother had become overly sedated on pain medications. Her boyfriend was at the house who is a chief nursing executive. He removed her patch and administered Narcan because her respirations were only 8/min and she was difficult to arouse. EMS did find the patient to be tachycardic and arousable however had difficulty answering questions. The patient cannot provide any history as to why she is at the hospital. She does complain of abdominal pain. Daughter has to provide additional history. She states that her mother was recently hospitalized on Monday and received IV chemotherapy at [facility] by Dr. Hurtado. She was discharged on Monday. She also recently had a peritoneal cavity drain placed 2 weeks ago Monday at [facility]. The patient denies any headaches or visual changes. Denies chest pain or shortness of breath. The remainder of HPI is limited because of the patient's current condition. - Related Data Home Medications Medication Instructions Recorded Confirmed Gabapentin [Neurontin] 300 mg PO TID 10/17/17 09/16/19 Escitalopram [Lexapro] 20 mg PO DAILY 12/19/18 09/16/19 Folic Acid 0.4 mg PO DAILY 04/29/19 09/16/19 Ondansetron HCl [Zofran] 8 mg PO Q8H PRN 05/09/19 09/16/19 Prochlorperazine [Compazine] 10 mg PO TID PRN 05/09/19 09/16/19 Diltiazem HCl [Cardizem] 120 mg PO DAILY 05/16/19 09/16/19 Esomeprazole Magnesium [NexIUM 20 mg PO DAILY 06/06/19 09/16/19 24Hr] Melatonin 10 mg PO HS 07/18/19 09/16/19 Bisacodyl 10 mg RECTAL DAILY PRN 09/16/19 09/16/19 Ibuprofen 200 mg PO Q6H 09/16/19 09/16/19 Mirtazapine [Remeron] 15 mg PO HS 09/16/19 09/16/19 Morphine Sulfate [Morphine Sulfate 30 mg PO Q3H PRN 09/16/19 09/16/19 Oral Soln Conc (20 MG/ML)] Naloxone HCl [Narcan] 4 mg NASAL ONCE PRN 09/16/19 09/16/19 Senna 8.8mg/5ml Oral Suspension 17.6 mg PO BID PRN 09/16/19 09/16/19 fentaNYL 25MCG/HR PATCH [Duragesic 1 patch TRANSDERM Q72H 09/16/19 09/16/19 25MCG/HR] Previous Rx's Medication Instructions Recorded Magnesium Oxide [Mag-Ox] 400 mg PO TID #90 tab 05/14/19 Allergies Allergy/AdvReac Type Severity Reaction Status Date / Time adhesive Allergy Rash/Hives Verified 08/05/19 16:13 carboplatin Allergy Anaphylaxis Verified 08/05/19 16:13 ceftriaxone [From Rocephin] Allergy Itching Verified 08/05/19 16:13 iodine Allergy Rash/Hives Verified 08/05/19 16:13 Penicillins Allergy Rash/Hives Verified 08/05/19 16:13 codeine AdvReac Nausea & Verified 08/05/19 16:13 Vomiting morphine AdvReac Nausea & Verified 08/05/19 16:13 Vomiting Review of Systems ROS Statement: Those systems with pertinent positive or pertinent negative responses have been documented in the HPI. ROS Other: All systems not noted in ROS Statement are negative. Past Medical History Past Medical History: Cancer, Hypertension Additional Past Medical History / Comment(s): Ovarian cancer last chemo 09/13/19 History of Any Multi-Drug Resistant Organisms: VRE Date of last positivie culture/infection: 01/26/18 MDRO Source:: urine Past Surgical History: Hysterectomy Additional Past Surgical History / Comment(s): Bilateral oopherectomy/hysterectomy, 2 open exploratory abdominal surgery, R chest mediport placed 2011, bilateral retrograde pyelogram cystoscopy with R ureter stent and stent exchanges, jaws have pins d/t surgery for TMJ, colonoscopy. Right nephrosotomy tube placement 12/31 (still in place).ileostomy Past Anesthesia/Blood Transfusion Reactions: No Reported Reaction Additional Past Anesthesia/Blood Transfusion Reaction / Comment(s): Pt has received blood in past without reaction. Date of Last Stent Placement:: 2011 Past Psychological History: Anxiety, Depression Smoking Status: Never smoker Past Alcohol Use History: Occasional Past Drug Use History: None Reported - Past Family History Mother Family Medical History: Cancer, Diabetes Mellitus Brother(s) Family Medical History: Cancer Additional Family Medical History / Comment(s): Lung cancer- since passed. Sister(s) Family Medical History: CVA/TIA Additional Family Medical History / Comment(s): 2 weeks ago. Father Family Medical History: Dementia, Neurologic Disorder Additional Family Medical History / Comment(s): Alzheimer's. General Exam Limitations: altered mental status General appearance: lethargic Head exam: Present: atraumatic, normocephalic, normal inspection Eye exam: Present: PERRL, EOMI ENT exam: Present: mucous membranes dry Neck exam: Present: normal inspection. Absent: tenderness, meningismus, lymphadenopathy Respiratory exam: Present: normal lung sounds bilaterally. Absent: respiratory distress, wheezes, rales, rhonchi, stridor Cardiovascular Exam: Present: normal rhythm, tachycardia GI/Abdominal exam: Present: distended, other (g tube left abdominal wall, right nephrostomy tube ) Neurological exam: Present: altered Skin exam: Present: other (cool, pallor ) Course Vital Signs 09/16/19 09/16/19 09/16/19 15:00 15:26 15:30 Temperature 99.5 F Pulse Rate 154 H 156 H Pulse Rate [ Form Grader ] Respiratory 22 22 Rate Blood Pressure 136/105 132/87 132/87 O2 Sat by Pulse 97 96 Oximetry 09/16/19 09/16/19 09/16/19 15:35 16:00 16:30 Temperature Pulse Rate 151 H 142 H Pulse Rate [ 160 H Form Grader ] Respiratory 23 23 Rate Blood Pressure 125/53 O2 Sat by Pulse 96 94 L Oximetry 09/16/19 09/16/19 09/16/19 17:00 17:30 18:00 Temperature Pulse Rate 138 H 138 H 140 H Pulse Rate [ Form Grader ] Respiratory 19 21 20 Rate Blood Pressure 98/52 77/40 102/36 O2 Sat by Pulse 95 94 L 94 L Oximetry 09/16/19 09/16/19 09/16/19 18:30 19:00 20:00 Temperature 100.5 F H Pulse Rate 141 H 141 H 134 H Pulse Rate [ Form Grader ] Respiratory 16 20 22 Rate Blood Pressure 98/45 106/34 103/56 O2 Sat by Pulse 92 L 93 L 96 Oximetry 09/16/19 20:30 Temperature Pulse Rate 137 H Pulse Rate [ Form Grader ] Respiratory 16 Rate Blood Pressure 98/49 O2 Sat by Pulse 95 Oximetry EKG Findings - EKG Comments: EKG Findings:: EKG demonstrates a sinus tachycardia with a ventricular rate of 155. VA interval 116. QRS 72. QTC of 517. No acute ST segment elevations or depressions concerning for ischemic changes Medical Decision Making - Medical Decision Making Upon arrival the patient was placed into room 3. A thorough history and physical exam was performed. Patient's port was accessed and she was given 500 mL of normal saline. Laboratory studies were obtained. Unable to count of 0.5. Hemoglobin 9.6. Platelets of 132. D-dimer markedly elevated at 5.17. Sodium is 1:30. Chloride 96. Glucose 123. Lactic acid 3.1. Calcium 7.2. Troponin 0.028. Urinalysis shows small blood, trace of esterase, 44 red blood cells, many bacteria, moderate mucous and occasional yeast. Coronavirus is not detected. I did perform a chest x-ray which demonstrates improved aeration of the left lower lobe however persistent atelectasis or infiltrate. Pleural effusion is diminished. There is a persistent opacity in the left hilum which may reflect underlying mass. As the patient does not demonstrate any signs of fluid overload I did give her an additional 500 mL of normal saline. The patient is sent for a CT of her abdomen and pelvis which demonstrates interval gastrostomy tube placement however the tube does not appear to be within the stomach. There is pneumoperitoneum which may be related to poor tube placement and or perforated viscus. Fluid collection within the upper abdomen as well as ascites and moderate basilar pleural effusions. Thickened loops of small and large bowel with improving dilatation noted. I discussed these results the patient's family. They continue to state that the patient is DNR/DNI with no aggressive measures. I discussed the placement of the tube however family is adamant that the tube is grossly within the intraperitoneal cavity and not within the stomach. The patient is persistently confused and therefore did perform a CT of the patient's brain. He does demonstrate to new cystic lesions within the right cerebral hemisphere likely to reflect metastatic lesions. I also performed venous Dopplers the patient's lower extremities which demonstrated no evidence for DVT. The family does request transfer to [facility]. Reevaluation of the patient demonstrates improved heart rate. I discussed the case with the call center and Dr. Al who accepted the patient as a direct admit. Blood cultures obtained and the patient was started on Cefepime 2 grams. Patient is awaiting EMS arrival. - Lab Data Result diagrams: 09/16/19 16:05 09/16/19 16:05 Lab Results 09/16/19 09/16/19 09/16/19 Range/Units 16:05 16:05 16:05 WBC 0.5 L* (3.8-10.6) k/uL RBC 3.11 L (3.80-5.40) m/uL Hgb 9.6 L (11.4-16.0) gm/dL Hct 28.7 L (34.0-46.0) % MCV 92.4 (80.0-100.0) fL MCH 30.8 (25.0-35.0) pg MCHC 33.4 (31.0-37.0) g/dL RDW 16.1 H (11.5-15.5) % Plt Count 132 L (150-450) k/uL Neutrophils # J[employer] Differential Comment Anisocytosis Slight PT 9.7 (9.0-12.0) sec INR 0.9 (<1.2) APTT 24.2 (22.0-30.0) sec D-Dimer 5.17 H (<0.60) mg/L FEU Sodium (137-145) mmol/L Potassium (3.5-5.1) mmol/L Chloride (98-107) mmol/L Carbon Dioxide (22-30) mmol/L Anion Gap mmol/L BUN (7-17) mg/dL Creatinine (0.52-1.04) mg/dL Est GFR (CKD-EPI)AfAm (>60 ml/min/1.73 sqM) Est GFR (CKD-EPI)NonAf (>60 ml/min/1.73 sqM) Glucose (74-99) mg/dL Lactic Ac Sepsis Rflx Plasma Lactic Acid Chad (0.7-2.0) mmol/L Calcium (8.4-10.2) mg/dL Magnesium (1.6-2.3) mg/dL Total Bilirubin (0.2-1.3) mg/dL AST (14-36) U/L ALT (4-34) U/L Alkaline Phosphatase (38-126) U/L Creatine Kinase (30-135) U/L Troponin I (0.000-0.034) ng/mL NT-Pro-B Natriuret Pep pg/mL Total Protein (6.3-8.2) g/dL Albumin (3.5-5.0) g/dL TSH (0.465-4.680) mIU/L Urine Color Yellow Urine Appearance Cloudy H (Clear) Urine pH 6.5 (5.0-8.0) Ur Specific [place] 1.014 (1.001-1.035) Urine Protein 1+ H (Negative) Urine Glucose (UA) Negative (Negative) Urine Ketones Negative (Negative) Urine Blood Small H (Negative) Urine Nitrite Negative (Negative) Urine Bilirubin Negative (Negative) Urine Urobilinogen <2.0 (<2.0) mg/dL Ur Leukocyte Esterase Trace H (Negative) Urine RBC 44 H (0-5) /hpf Urine WBC 3 (0-5) /hpf Ur Squamous Epith Cells <1 (0-4) /hpf Urine Bacteria Many H (None) /hpf Urine Mucus Moderate H (None) /hpf Urine Yeast (Budding) Occasional H (None) /hpf Coronavirus (PCR) (Not Detectd) 09/16/19 09/16/19 09/16/19 Range/Units 16:05 16:05 16:05 WBC (3.8-10.6) k/uL RBC (3.80-5.40) m/uL Hgb (11.4-16.0) gm/dL Hct (34.0-46.0) % MCV (80.0-100.0) fL MCH (25.0-35.0) pg MCHC (31.0-37.0) g/dL RDW (11.5-15.5) % Plt Count (150-450) k/uL Neutrophils # Differential Comment Anisocytosis PT (9.0-12.0) sec INR (<1.2) APTT (22.0-30.0) sec D-Dimer (<0.60) mg/L FEU Sodium 130 L (137-145) mmol/L Potassium 3.7 (3.5-5.1) mmol/L Chloride 96 L (98-107) mmol/L Carbon Dioxide 24 (22-30) mmol/L Anion Gap 10 mmol/L BUN 37 H (7-17) mg/dL Creatinine 0.69 (0.52-1.04) mg/dL Est GFR (CKD-EPI)AfAm >90 (>60 ml/min/1.73 sqM) Est GFR (CKD-EPI)NonAf >90 (>60 ml/min/1.73 sqM) Glucose 123 H (74-99) mg/dL Lactic Ac Sepsis Rflx Plasma Lactic Acid Chad 3.1 H* (0.7-2.0) mmol/L Calcium 7.2 L (8.4-10.2) mg/dL Magnesium 2.6 H (1.6-2.3) mg/dL Total Bilirubin 0.9 (0.2-1.3) mg/dL AST 43 H (14-36) U/L ALT 31 (4-34) U/L Alkaline Phosphatase 108 (38-126) U/L Creatine Kinase <20 L (30-135) U/L Troponin I 0.028 (0.000-0.034) ng/mL NT-Pro-B Natriuret Pep pg/mL Total Protein 4.5 L (6.3-8.2) g/dL Albumin 2.1 L (3.5-5.0) g/dL TSH 0.640 (0.465-4.680) mIU/L Urine Color Urine Appearance (Clear) Urine pH (5.0-8.0) Ur Specific [place] (1.001-1.035) Urine Protein (Negative) Urine Glucose (UA) (Negative) Urine Ketones (Negative) Urine Blood (Negative) Urine Nitrite (Negative) Urine Bilirubin (Negative) Urine Urobilinogen (<2.0) mg/dL Ur Leukocyte Esterase (Negative) Urine RBC (0-5) /hpf Urine WBC (0-5) /hpf Ur Squamous Epith Cells (0-4) /hpf Urine Bacteria (None) /hpf Urine Mucus (None) /hpf Urine Yeast (Budding) (None) /hpf Coronavirus (PCR) (Not Detectd) 09/16/19 09/16/19 09/16/19 Range/Units 16:05 16:05 17:54 WBC (3.8-10.6) k/uL RBC (3.80-5.40) m/uL Hgb (11.4-16.0) gm/dL Hct (34.0-46.0) % MCV (80.0-100.0) fL MCH (25.0-35.0) pg MCHC (31.0-37.0) g/dL RDW (11.5-15.5) % Plt Count (150-450) k/uL Neutrophils # Differential Comment Anisocytosis PT (9.0-12.0) sec INR (<1.2) APTT (22.0-30.0) sec D-Dimer (<0.60) mg/L FEU Sodium (137-145) mmol/L Potassium (3.5-5.1) mmol/L Chloride (98-107) mmol/L Carbon Dioxide (22-30) mmol/L Anion Gap mmol/L BUN (7-17) mg/dL Creatinine (0.52-1.04) mg/dL Est GFR (CKD-EPI)AfAm (>60 ml/min/1.73 sqM) Est GFR (CKD-EPI)NonAf (>60 ml/min/1.73 sqM) Glucose (74-99) mg/dL Lactic Ac Sepsis Rflx Y Plasma Lactic Acid Chad (0.7-2.0) mmol/L Calcium (8.4-10.2) mg/dL Magnesium (1.6-2.3) mg/dL Total Bilirubin (0.2-1.3) mg/dL AST (14-36) U/L ALT (4-34) U/L Alkaline Phosphatase (38-126) U/L Creatine Kinase (30-135) U/L Troponin I (0.000-0.034) ng/mL NT-Pro-B Natriuret Pep 484 pg/mL Total Protein (6.3-8.2) g/dL Albumin (3.5-5.0) g/dL TSH (0.465-4.680) mIU/L Urine Color Urine Appearance (Clear) Urine pH (5.0-8.0) Ur Specific [place] (1.001-1.035) Urine Protein (Negative) Urine Glucose (UA) (Negative) Urine Ketones (Negative) Urine Blood (Negative) Urine Nitrite (Negative) Urine Bilirubin (Negative) Urine Urobilinogen (<2.0) mg/dL Ur Leukocyte Esterase (Negative) Urine RBC (0-5) /hpf Urine WBC (0-5) /hpf Ur Squamous Epith Cells (0-4) /hpf Urine Bacteria (None) /hpf Urine Mucus (None) /hpf Urine Yeast (Budding) (None) /hpf Coronavirus (PCR) Not Detected (Not Detectd) Critical Care Time Critical Care Time: Yes Critical Care Time: 35 minutes Disposition Clinical Impression: Ovarian cancer, Antineoplastic chemotherapy induced anemia, Elevated d-dimer, Acute abdominal pain, Pancytopenia due to chemotherapy, Sinus tachycardia, Brain mass Disposition: OTHER INSTITUTION NOT DEFINED Condition: Serious Is patient prescribed a controlled substance at d/c from ED?: No Referrals: Kevin Metzger MD [Primary Care Provider] - 1-2 days Time of Disposition: 19:42 - Out of Hospital Transfer - Req. Specs Out of Hospital Transfer - Requested Specifics: Telemetry Unit ([facility])
[2019-09-16 16:47] LABS: D-Dimer 5.17 mg/L FEU (<0.60)
--- NOTE | 2019-09-16 17:10 | CT ---
EXAMINATION TYPE: CT abdomen pelvis wo con DATE OF EXAM: 09/16/2019 COMPARISON: 07/19/2019 HISTORY: abdominal pain, hx of ovarian ca CT DLP: 602.2 mGycm Examination of the solid and hollow viscera is limited given the lack of contrast. FINDINGS: LUNG BASES: New moderate bibasilar pleural effusions measuring 5.3 cm on the left AP dimension and 4. 3 cm on the right. Compressive atelectasis noted. LIVER/GB: The gallbladder surgically absent. Suspect hepatic steatosis. No space-occupying hepatic le ruthie. PANCREAS: No pancreatic mass identified. No inflammatory process seen. SPLEEN: No evidence for splenomegaly. No intrasplenic lesions seen. ADRENALS: No adrenal nodules identified. No evidence for thickening. KIDNEYS: Right-sided percutaneous nephrostomy tube is again noted. Mild fullness of the bilateral ure ters. No evidence for renal mass. No nephrolithiasis. No hydronephrosis. BOWEL: There has been interval gastrostomy tube placement however the gastrostomy tube does not appea r to be within the stomach. This could be further evaluated with contrast injection and plain film ra diographs. There is evidence of pneumoperitoneum. Multiple fluid collections are seen within the uppe r abdomen adjacent to the gastrostomy tube. There is also ascites within the left upper quadrant exte nding throughout the left paracolic gutter and to a lesser extent the pelvis. Cystic fluid collection noted within the left sided pelvic inlet. There are thickened loops of small and large bowel which m ay reflect enterocolitis of uncertain etiology. The bowel continues to be dilated although to a lesse r extent than on the prior study. There is soft tissue noted within the right periumbilical region wh ich may reflect a loop of bowel, nodular omentum and/or fluid. Omentum is nodular as well and this ma y reflect omental metastases. Lymph nodes: No evidence for adenopathy greater than 1 cm. Abdominal aorta: Atheromatous changes seen. No evidence for aneurysm. Genital organs: Hysterectomy and nephrectomy change. No distinct recurrent mass although the lack of contrast limits evaluation. Other: Scattered subcutaneous nodularity may reflect metastatic nodules. IMPRESSION: 1.There has been interval gastrostomy tube placement however the gastrostomy tube does not appear to be within the stomach. This could be further evaluated with contrast injection and plain film radiogr aphs. 2. Pneumoperitoneum which may be related to poor gastrostomy tube placement and/or perforated viscus. 3. Fluid collections within the upper abdomen as well as ascites and moderate basilar pleural effusio ns. 4. Thickened loops of small and large bowel with improving dilatation noted. Nonspecific enterocoliti s is considered differential diagnostic possibilities including vascular, inflammatory and infectious etiologies. 5.There is soft tissue noted within the right periumbilical region which may reflect a loop of bowel, nodular omentum and/or fluid. Omentum is nodular as well and this may reflect omental metastases.
--- NOTE | 2019-09-16 17:23 | CT ---
EXAMINATION TYPE: CT brain wo con DATE OF EXAM: 09/16/2019 COMPARISON: 10/31/2017 HISTORY: ams CT DLP: 1090.[address] of the brain was performed. There is a new cystic mass identified posterior right temporal lobe measuring 2.8 x 2.6 cm with mild surrounding vasogenic edema. There is an additional cystic lesion within the high right parietal occi pital lobe measuring approximately 1.8 cm in greatest dimension. No evidence for midline shift. The f indings are felt to be compatible with cystic metastatic lesions. The ventricles, basal cisterns and sulci overlying the cerebral convexities demonstrate mild enlargem ent. There is no evidence for intracranial hemorrhage. There is decreased attenuation about the periventricular white matter and deep white matter of both c erebral hemispheres, compatible with chronic small vessel ischemia. Differential diagnosis does inclu de demyelination. No midline shift. Osseous calvarium is intact. If symptoms persist consider MRI. IMPRESSION: 1. Noted are 2 new cystic lesions within the right cerebral hemisphere as discussed above felt to ref lect cystic metastatic lesions until proven otherwise.
[2019-09-16] MEDS ORDERED: DEXAMETHASONE SOD PHOSPHATE 10 MG/ML 1 ML VIAL IV STA (17:38)
[2019-09-16 17:48] LABS: AST 43 U/L (14-36); African American GFR (CKD) >90 (>60 ml/min/1.73 sqM); Albumin 2.1 g/dL (3.5-5.0); Alkaline Phosphatase 108 U/L (38-126); Anion Gap 10 mmol/L; Blood Urea Nitrogen 37 mg/dL (7-17); Calcium 7.2 mg/dL (8.4-10.2); Carbon Dioxide 24 mmol/L (22-30); Chloride 96 mmol/L (98-107); Creatine Kinase <20 U/L (30-135); Glucose 123 mg/dL (74-99); Magnesium 2.6 mg/dL (1.6-2.3); Non-African American GFR(CKD) >90 (>60 ml/min/1.73 sqM); Potassium 3.7 mmol/L (3.5-5.1); Sodium 130 mmol/L (137-145); Total Bilirubin 0.9 mg/dL (0.2-1.3); Total Protein 4.5 g/dL (6.3-8.2)
[2019-09-16] MEDS ORDERED: SODIUM CHLORIDE 0.9% 500 ML 500 ML IV ONE (17:54)
[2019-09-16 17:57] LABS: ALT 31 U/L (4-34)
--- NOTE | 2019-09-16 19:00 | US ---
EXAMINATION TYPE: US venous doppler duplex LE DATE OF EXAM: 09/16/2019 6:49 PM COMPARISON:US 2014 CLINICAL HISTORY: elevated d-dimer, tachycardia. Elevated D- Dimer. Tachycardia. Patient on chemo for ovarian cancer. Shortness of breath. SIDE PERFORMED: Bilateral TECHNIQUE: The lower extremity deep venous system is examined utilizing real time linear array sonog freddie with graded compression, doppler sonography and color-flow sonography. VESSELS IMAGED: External Iliac Vein (EIV) Common Femoral Vein Deep Femoral Vein Greater Saphenous Vein * Femoral Vein Popliteal Vein Small Saphenous Vein * Proximal Calf Veins (* superficial vessels) Right Leg: No evidence of DVT in veins imaged at this time from prox calf veins to EIV. Duplicate fe moral vein seen. Left Leg: In the left groin there appears to be hypoechoic areas. #1 measures: 1.6 x 1.4 x 1.1 cm. #2 measures: 1.2 x 1.0 x 1.0 cm. No evidence of DVT in veins imaged at this time from prox calf veins to EIV. Duplicate femoral vein seen. IMPRESSION: No evidence for DVT.
[2019-09-16] MEDS ORDERED: CEFEPIME 2 GM in SODIUM CHLORIDE 0.9% 100 ML IVPB STA (19:25)
[2019-09-16] MEDS ORDERED: CEFEPIME 1 GM in SODIUM CHLORIDE 0.9% 50 ML IVPB STA (19:25)
[2019-09-16 19:46] VITALS: TEMP 100.5
[2019-09-16] MEDS ORDERED: ACETAMINOPHEN IV (For NPO) 1,000 MG in EMPTY BAG 1 BAG IVPB STA (20:42)
[2019-09-16] MEDS ORDERED: SODIUM CHLORIDE 0.9% 1,000 ML IV SCH (20:45)
[2019-09-16 20:55] VITALS: BP 98/49; PULSE 137; RESP 16
== END 2019-09-16 21:15 | disposition other institution (70) ==
LOC: EC 14:50
DX: C56.9 Malignant neoplasm of unspecified ovary (principal); D61.810 Antineoplastic chemotherapy induced pancytopenia; T45.1X5A Adverse effect of antineoplastic and immunosuppressive drugs, initial encounter; R06.02 Shortness of breath; G93.89 Other specified disorders of brain; R00.0 Tachycardia, unspecified; Z20.828 Contact with and (suspected) exposure to other viral communicable diseases; K66.8 Other specified disorders of peritoneum; J90 Pleural effusion, not elsewhere classified; Z66 Do not resuscitate; I10 Essential (primary) hypertension; F41.9 Anxiety disorder, unspecified; F32.9 Major depressive disorder, single episode, unspecified; Z79.899 Other long term (current) drug therapy; Z91.048 Other nonmedicinal substance allergy status; Z88.8 Allergy status to other drugs, medicaments and biological substances; Z88.0 Allergy status to penicillin; Z88.1 Allergy status to other antibiotic agents; Z88.5 Allergy status to narcotic agent
CPT/HCPCS: 99285 ×2; 96365 ×2; 96367 ×2; 96375 ×3; 96361 ×4; 36415; 93005; 85379; 83880; 80053; 84443; 82550; 83605; 83735; 84484; 85025; 85610; 85730; 81001; 87040; 87635; 71045; 93970; 70450; 74176; J1100; J0692; J1170; J0131